=== PATIENT | female | born 1975 | race Caucasian/White ===

== ENCOUNTER 2023-04-14 07:49 | Outpatient (OUT) | payer BC, SELFPAY ==
--- NOTE | 2023-04-14 | RT_ITS ---
[facility] Test Date: 2023-04-14 Pat Name: ELVIA GUTIÉRREZ Department: Room: - Gender: Female [employer] Professional: Hien Suazo RRT : 1975 Requested By: CECILIA RAMOS Order Number: [id number] Reading MD: Rudolph Storey Interpretive Statements Please see PFT performed earlier this morning for full interpretation. Electronically Signed On 04-14-2023 17:40:31 EDT by Rudolph Storey
--- NOTE | 2023-04-14 08:00 | RT_ITS ---
[facility] Test Date: 2023-04-14 Pat Name: ELVIA GUTIÉRREZ Department: Room: - Gender: Female [employer] Technician: Hien Suazo RRT : 1975 Requested By: CECILIA RAMOS Order Number: [id number] Ajay MD: Rudolph Storey Interpretive Statements Pulmonary function testing was completed according to ATS criteria. Findings were considered accurate and reproducible. No bronchodilator was administered due to normal spirometric values. No prior studies available for comparison. Spirometry: -FEV1/FVC: Normal @ 84% -FEV1: Normal @ 117% -FVC: Normal @ 112% Lung volumes by plethysmography: -RV: Normal @ 98% -TLC: Increased @ 116% Diffusion capacity: -DLCO: Extremely severe reduction @ 17% when corrected for Hb 13.1g/dL I had the RT retest this patient's DLCO as a value of 17% is EXTREMELY low. It was retested the same day in the afternoon (see that separate report for full numbers) -DLCO (repeat): Mild reduction @ 72% when corrected for Hb 13.1g/dL Flow-volume loop: -Normal shape Impressions: -Normal spirometry and lung volumes, with an isolated mild diffusion defect. The 17% DLCO value appears spurious, which I recommend to disregard. Given the patient's clinical history, the mildly reduced DLCO may be secondary to pulmonary hypertension and/or a [id number] shunt associated with PFO or other septal defect. Clinical correlation required. Electronically Signed On 04-14-2023 17:48:00 EDT by Rudolph Storey
[2023-04-14 08:03] LABS: Hemoglobin 13.1 g/dL (12.0-16.0)
== END 2023-04-14 07:50 ==
LOC: LAB 07:49
PROVIDERS: PCP Family Medicine; Visit Provider Internal Medicine Interventional Cardiology
DX: R06.02 Shortness of breath (principal)
CPT/HCPCS: 36415; 85018; 94010; 94726; 94729

== ENCOUNTER 2023-05-11 11:43 | Outpatient (OUT) | payer BC, SELFPAY ==
[2023-05-11 12:46] LABS: Anion Gap 11.9; BUN Creatinine Ratio 9.5; Calcium 8.8 mg/dL (8.5-10.1); Chloride 101 mmol/L (98-107); Estimated GFR (African America >60 (>=60); Estimated GFR (Non-African Ame 57 (>=60); Glucose 88 mg/dL (74-106); Potassium 3.9 mmol/L (3.5-5.1); Sodium 137 mmol/L (136-145)
== END 2023-05-11 11:44 | disposition home or self-care (01) ==
LOC: LAB 11:44
PROVIDERS: PCP Family Medicine; Visit Provider Internal Medicine Interventional Cardiology
DX: R06.02 Shortness of breath (principal)
CPT/HCPCS: 36415; 80048

== ENCOUNTER 2023-06-01 11:27 | Outpatient (OUT) | payer BC, SELFPAY ==
[2023-06-01 11:57] LABS: Anion Gap 10.5; Calcium 8.7 mg/dL (8.5-10.1); Carbon Dioxide 29.2 mmol/L (21.0-32.0); Chloride 101 mmol/L (98-107); Estimated GFR (African America >60 (>=60); Estimated GFR (Non-African Ame 60 (>=60); Glucose 106 mg/dL (74-106); Potassium 3.7 mmol/L (3.5-5.1); Sodium 137 mmol/L (136-145)
== END 2023-06-01 11:28 | disposition home or self-care (01) ==
LOC: LAB 11:30
PROVIDERS: PCP Family Medicine; Visit Provider Internal Medicine Interventional Cardiology
DX: I11.9 Hypertensive heart disease without heart failure (principal)
CPT/HCPCS: 36415; 80048

== ENCOUNTER 2023-07-13 10:15 | Outpatient (OUT) | payer BC, SELFPAY ==
--- NOTE | 2023-07-13 10:19 | MM_ITS ---
Patient: ELVIA GUTIÉRREZ Exam Date: 07/13/2023 : 1975 Gender:F Ordering : DR Pat Dominique M.D. Admission #: [id number] Family : Order #: [id number] CLICK HERE TO VIEW EXAM RADIOLOGY REPORT PROCEDURE: MM TOMOSYNTHESIS SCREENING BI COMPARISON: MG MAMM SCREEN 3D AMANUEL CAD, 07/10/2022. MG MAMM SCREEN 3D AMANUEL CAD, 05/30/2021. MG MAMM SCREEN AMANUEL W CAD, 08/16/2019. MG MAMM AMANUEL SCRN W CAD DIG, 10/03/2015. INDICATIONS: Z12.31 Calculator Name NCI Breast Cancer Risk Assessment Tool 5 Year Breast Cancer Risk Not Reported. Lifetime Breast Cancer Risk Not Reported. Personal Breast Cancer No Personal Ovarian Cancer No Treatments None Family Cancers None LOCATION: [facility] BREAST COMPOSITION: Heterogeneously dense,which may obscure small masses. FINDINGS: DIAGNOSTIC CATEGORY 0--INCOMPLETE: NEED ADDITIONAL IMAGING EVALUATION. RIGHT BREAST: 10 x 6 mm circumscribed nodule within the lower inner quadrant, mid breast. Spot magnification views and ultrasound evaluation recommended. LEFT BREAST: No significant suspicious finding. No significant change has occurred. RECOMMENDATIONS: ADDITIONAL MAMMOGRAPHIC VIEWS REQUIRED: RIGHT BREAST - RIGHT CRANIOCAUDAL SPOT MAGNIFICATION VIEW - RIGHT OBLIQUE SPOT MAGNIFICATION VIEW - ULTRASOUND: RIGHT BREAST PLEASE NOTE: A NORMAL MAMMOGRAM DOES NOT EXCLUDE THE POSSIBILITY OF BREAST CANCER. A CLINICALLY SUSPICIOUS PALPABLE LUMP SHOULD BE BIOPSIED. Dictated by: Edilson Ferguson M.D. on 07/13/2023 at 13:19 Approved by: Edilson Ferguson M.D. on 07/13/2023 at 13:27
== END 2023-07-13 10:16 | disposition home or self-care (01) ==
LOC: MAMMO 10:16
PROVIDERS: PCP Family Medicine; Visit Provider Family Medicine
DX: Z12.31 Encounter for screening mammogram for malignant neoplasm of breast (principal); N63.14 Unspecified lump in the right breast, lower inner quadrant
CPT/HCPCS: 77063; 77067

== ENCOUNTER 2023-07-27 12:58 | Outpatient (OUT) | payer BC, SELFPAY ==
--- NOTE | 2023-07-27 | MM_ITS ---
Patient: ELVIA GUTIÉRREZ Exam Date: 07/27/2023 : 1975 Gender:F Ordering : DR Pat Dominique M.D. Admission #: [id number] Family : Order #: [id number] CLICK HERE TO VIEW EXAM RADIOLOGY REPORT PROCEDURE: MM DIAGNOSTIC MAMMO UNILAT RT, 07/27/2023, 13:03 US BREAST RT LIMITED, 07/27/2023, 13:18 COMPARISON: MG MAMM SCREEN 3D AMANUEL CAD, 07/10/2022. MM TOMOSYNTHESIS SCREENING BI, 07/13/2023. INDICATIONS: Abnormal mammogram R92.8 Calculator Name NCI Breast Cancer Risk Assessment Tool 5 Year Breast Cancer Risk Not Reported. Lifetime Breast Cancer Risk Not Reported. Personal Breast Cancer No Personal Ovarian Cancer No Treatments None Family Cancers None LOCATION: [facility] BREAST COMPOSITION: Heterogeneously dense,which may obscure small masses. FINDINGS: DIAGNOSTIC CATEGORY 0--INCOMPLETE: NEED ADDITIONAL IMAGING EVALUATION. Spot compression views demonstrate a persistent partially circumscribed oval nodule lower inner quadrant mid breast measuring 9.4 x 4.8 x 5.9 mm. Ultrasound demonstrates 2 focal lesions in the right breast. At the 6 o'clock position oval lobular hypoechogenic lesion measuring 5.8 x 4.0 x 3.6 mm. At the 4 o'clock position oval smooth hypoechogenic lesion measuring 7.4 x 3.4 x 3.7 mm. These lesions do not correspond in size to the mammographic abnormality. Given the multiplicity of 3 separate lesions on 2 different modalities, MRI follow-up is recommended for further characterization. RECOMMENDATIONS: BREAST MRI: BILATERAL BREASTS PLEASE NOTE: A NORMAL MAMMOGRAM DOES NOT EXCLUDE THE POSSIBILITY OF BREAST CANCER. A CLINICALLY SUSPICIOUS PALPABLE LUMP SHOULD BE BIOPSIED. Dictated by: Chester Deutsch MD on 07/27/2023 at 13:36 Approved by: Chester Deutsch MD on 07/27/2023 at 13:40
== END 2023-07-27 12:59 | disposition home or self-care (01) ==
LOC: MAMMO 12:58
PROVIDERS: PCP Family Medicine; Visit Provider Family Medicine
DX: R92.8 Other abnormal and inconclusive findings on diagnostic imaging of breast (principal)
CPT/HCPCS: 76642; 77065

== ENCOUNTER 2023-08-23 07:15 | Outpatient (OUT) | payer BC, SELFPAY ==
--- NOTE | 2023-08-23 07:22 | MR_ITS ---
The [address] [address] Patient Name: ELVIA GUTIÉRREZ MRN: [facility]:[id number] date: 1975 Sex: F Assigned Patient Location: MRI Current Patient Location: MRI Accession/Order Number: [id number] Exam Date: 08/23/2023 07:25 Report Date: 08/23/2023 09:24 At the request of: NON-STAFF PHYSICIAN Procedure: MR head/brain wo/w con EXAMINATION: MR head/brain wo/w con HISTORY: [id number], increased tremors, headache, dizziness COMPARISON: MRI brain 02/16/2023, 06/10/2021 TECHNIQUE: A variety of imaging planes and parameters were utilized for visualization of suspected pathology. Images were performed without and with Dotarem contrast. FINDINGS: CEREBRUM: A few small foci of T2 hyperintensity within the periventricular deep white matter. Stable T2 hyperintensities within the kathryn and brainstem. No edema, hemorrhage, mass, acute infarction, or inappropriate atrophy. CEREBELLUM: Stable right cerebellar tonsil extending 2 mm below the foramen magnum. No edema, hemorrhage, mass, acute infarction, or inappropriate atrophy. BRAINSTEM: No edema, hemorrhage, mass, acute infarction, or inappropriate atrophy. CSF SPACES: Ventricles, cisterns, and sulci are appropriate for age. No hydrocephalus, subarachnoid hemorrhage, or mass. SKULL: No mass or other significant visible lesion. SINUSES: Limited views demonstrate no significant mucosal thickening or fluid. ORBITS: Limited views are unremarkable. OTHER: No abnormal meningeal or parenchymal enhancement. MR/MR head/brain wo/w con IMPRESSION: 1. Stable mild cerebellar tonsillar ectopia. 2. Stable appearance of a few small periventricular T2 hyperintensities within the deep white matter and more notable within the kathryn and brainstem; nonspecific but suspicious for demyelinating process. No new findings or enhancement to suggest active demyelination. Electronically authenticated by: MARA JOHN Date: 08/23/2023 09:24
== END 2023-08-23 07:16 | disposition home or self-care (01) ==
LOC: MRI 07:17
PROVIDERS: PCP Family Medicine
DX: R93.89 Abnormal findings on diagnostic imaging of other specified body structures (principal)
CPT/HCPCS: 70553; A9575

== ENCOUNTER 2024-01-03 07:03 | Outpatient (OUT) | payer BC, SELFPAY ==
--- OUTSIDE RECORDS SUMMARY | 2024-01-03 07:05 | XMS_ITS | CCD ---
Author Name Unknown Address [address] [place] [address] Organization [facility] Care Team Providers Care [employer] Instructor Name Role Phone ALESSANDRO GARRIDO Admitting Unavailable ALESSANDRO GARRIDO Attending Unavailable PAT HUSTON Referring Unavailable ROBEL, APT Primary Care Unavailable Pat Huston Unavailable ROBEL, DR PAT Kumari Admitting Unavailable HUSTON, DR PAT Kumari Attending Unavailable HUSTON, DR PAT Kumari Primary Care Unavailable TESUQUE, DR NILESH Foy Consulting Unavailable HUSTON, DR PAT Kumari Consulting Unavailable HUSTON, DR PAT Kumari Admitting Unavailable HUSTON, DR PAT Kumari Attending Unavailable HUSTON, DR PAT Kumari Primary Care Unavailable HUSTON, DR PAT Kumari Consulting Unavailable MISC, DR CRABTREE Admitting Unavailable MISC, DR CRABTREE Attending Unavailable HUSTON, DR PAT Kumari Primary Care Unavailable MISC, DR CRABTREE Consulting Unavailable ADDIE, DR PARIKH Admitting Unavailable ADDIE, DR PARIKH Attending Unavailable HUSTON, DR PAT Kumari Primary Care Unavailable ADDIE, DR PARIKH Consulting Unavailable ZIEBER, DR EDILSON Basilio Consulting Unavailable ELTAHAWY, DR BROOKS Admitting Unavailable ELTAHAWY, DR BROOKS Attending Unavailable HUSTON, DR PAT Kumari Primary Care Unavailable ELTAHAWY, DR BROOKS Consulting Unavailable ELTAHAWY, DR BROOKS Admitting Unavailable ELTAHAWY, DR BROOKS Attending Unavailable HUSTON, DR PAT Kumari Primary Care Unavailable HUSTON, DR PAT Kumari Admitting Unavailable HUSTON, DR PAT Kumari Attending Unavailable HUSTON, DR PAT Kumari Primary Care Unavailable HUSTON, DR PAT Kumari Consulting Unavailable ELTAHAWY, DR BROOKS Admitting Unavailable ELTAHAWY, DR BROOKS Attending Unavailable HUSTON, DR PAT Kumari Primary Care Unavailable ELTAHAWY, DR BROOKS Consulting Unavailable ZIEBER, DR EDILSON Basilio Consulting Unavailable ELTAHAWY, EHAB Admitting Unavailable ELTAHAWY, EHAB Attending Unavailable ELTAHAWY, EHAB Attending Unavailable ELTAHAWY, EHAB Attending Unavailable ELTAHAWY, EHAB Attending Unavailable ELTAHAWY, EHAB Attending Unavailable ELTAHAWY, EHAB Attending Unavailable ELTAHAWY, EHAB Referring Unavailable ELTAHAWY, EHAB Referring Unavailable MD Pat Huston Primary Care Provider MD Pat Huston Attending Provider [phone] Pat Huston Admitting Unavailable Pat Huston Primary Care Unavailable Pat Huston Attending Unavailable Kevon Samuel Admitting Unavailab le Kevon Samuel Attending Unavailab le Pat Huston Primary Care Unavailable Allergies Allergy Classification Reported Allergen(s) Allergy Type Date of Onset Reaction(s) Facility (2 sources) Acetaminophen / oxyCODONE Drug Allergy 07-30-20 14 [facility] Repository (8 sources) levoFLOXacin Drug Allergy 10-11-20 16 hives [facility] Repository (2 sources) Meperidine Drug Allergy 07-30-20 14 [facility] Repository (2 sources) Darvocet-N 100 Drug allergy (disorder) 07-30-20 14 [facility] Repository (6 sources) Acetaminophen / oxyCODONE Drug Allergy Unknown [facility] Other (6 sources) Acetaminophen / Propoxyphene Drug Allergy Unknown [facility] Other (8 sources) Meperidine; Translations: [MEPERIDINE] Drug Allergy 12-15-19 14 Unknown, Vomiting [facility] Repository (6 sources) Simvastatin Drug Allergy Unknown [facility] Other (1 source) Tylenol-Codeine #3 Drug allergy (disorder) [facility] Repository (5 sources) Allergies Reconciled Propensity to adverse reactions Unknown [facility] Other (5 sources) patient allergy list reviewed by nurse or physicia Propensity to adverse reactions 06-21-20 19 Comment:Done [facility] Other (5 sources) Darvocet A500 *ANALGESICS - OPIOID* Propensity to adverse reactions 10-27-19 17 Unknown [facility] Other (1 source) Acetaminophen / oxyCODONE; Translations: [OXYCODONE-ACETAM INOPHEN] Drug Allergy 12-15-19 14 [facility] Repository (3 sources) levoFLOXacin; Translations: [LEVOFLOXACIN] Drug Allergy 08-21-20 Hives [facility] Repository (1 source) PROPOXYPHENE N-ACETAMINOPHEN; Translations: [PROPOXYPHENE N-ACETAMINOPHEN] Propensity to adverse reactions to drug (disorder) 12-15-19 [facility] Repository (2 sources) Acetaminophen; Translations: [acetaminophen] Drug Allergy 09-07-20 Vomiting [facility] (2 sources) oxyCODONE; Translations: [oxycodone] Drug Allergy 09-07-20 Vomiting [facility] (2 sources) Propoxyphene; Translations: [propoxyphene] Drug Allergy 09-07-20 [facility] (1 source) Meperidine Drug Allergy 09-07-20 [facility] Repository Medications Current Medications Medication Drug Class(es) Dates Sig (Normalized) Sig (Original) buPROPion hydrochloride 100 mg oral tablet (17 sources) Aminoketone Start: 06-25-2022 buPROPion HCl 100MG BuPROPion HCl( 100MG Oral 2 times daily ) Active -Hx Entry Oral 2 times daily for 0 *Pick strength-form from [employer] for eRX* Jun, Active take 1 tablet by thomas th once daily in the morning buPROPion HCl ER (XL) 300 MG Take 1 tabl et by mouth every morning for 90 Active citalopram 20 mg oral tablet (5 sources) Serotonin Reuptake Inhibitor Start: 06-25-2022 Citalopram Hydrobromide 20MG Citalopram Hydrobromide( 20MG Oral 2 times daily ) Active -Hx Entry Oral 2 times daily for 0 *Pick strength-form from [employer] for eRX* Jun, Active dilTIAZem malate 240 mg oral tablet (11 sources) Calcium Channel Rob Start: 06-26-2022 take 240 mg by mouth once daily Cardizem CD 240MG Cardizem CD( 240MG Oral daily ) Active -Hx Entry Oral daily for 0 *Pick strength-form from [employer] for eRX* Jun, Active take 2 tablets by mo [facility] every twenty-four hours Cardizem 120 MG 2 tablets Orally daily total of 240 mg Active DULoxetine 30 mg delayed release oral capsule (12 sources) Serotonin and Norepinephrine Reuptake Inhibitor take 1 capsule by mouth once daily DULoxetine HCl 30 MG Take 1 capsule by mouth every day for 90 Active 24 hr isosorbide mononitrate 120 mg extended release oral tablet (11 sources) Nitrate Vasodilator Start: 06-26-20 Imdur 120MG Imdur( 120MG Oral ) Active -Hx Entry Oral for 0 *Reorder from [employer] for eRx and Interaction Alerts* Jun, Active take 1 tablet by thomas once daily in the morning Imdur 60 MG 1 tablet in the morning Orally Once a day 120 mg Active Problems Active Problems Problem Classification Problem Date Documented Date Episodic/Chronic Anxiety disorders (6 sources) Generalized anxiety disorder; Translations: [Generalized anxiety disorder] Chronic Conduction disorders (5 sources) Pre-excitation syndrome; 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] Onset: 06-20-2018 Chronic Coronary atherosclerosis and other heart disease (4 sources) Atherosclerotic heart disease of [place] coronary artery with other forms of angina pectoris; Translations: [Angina pectoris with documented spasm] Onset: 07-22-2022 Chronic Disorders of lipid metabolism (9 sources) Hyperlipidemia, unspecified; Translations: [Hyperlipidemia] Onset: 06-20-2018 Chronic Essential hypertension (2 sources) Essential (primary) hypertension; Translations: [Essential (primary) hypertension] Onset: 03-16-2023 Chronic Fever of unknown origin (5 sources) Fever, unspecified; Translations: [Fever] Episodic Menstrual disorders (10 sources) Excessive and frequent menstruation with regular cycle; Translations: [Intermenstrual bleeding - irregular] Resolved: 02-25-2017 Chronic Mood disorders (6 sources) Moderate recurrent major depression; Translations: [Major depressive disorder, recurrent, moderate] Chronic Nonspecific chest pain (18 sources) Non-cardiac chest pain; Translations: [Other chest pain] Onset: 11-04-2022 Episodic Open wounds of head; neck; and trunk (5 sources) Laceration of genitalia; Translations: [Laceration without foreign body of vagina and vulva, initial encounter] Episodic Other aftercare (1 source) Encounter for follow-up examination after completed treatment for conditions other than malignant neoplasm; Translations: [Encntr for f/u exam aft trtmt for cond oth than malig neoplm] Episodic Other aftercare (4 sources) History and physical examination, follow-up; Translations: [Encounter for follow-up examination after completed treatment for conditions other than malignant neoplasm] Episodic Other connective tissue disease (1 source) Pain in right hand; Translations: [Pain in right hand] Episodic Other connective tissue disease (4 sources) Pain in right hand; Translations: [Pain in right hand] Episodic Other eye disorders (5 sources) Dilated pupil; 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 Other non-traumatic joint disorders (1 source) Pain in left hip; Translations: [Pain in left hip] Episodic Other non-traumatic joint disorders (4 sources) Arthralgia of the pelvic region and thigh; Translations: [Pain in left hip] Episodic Other nutritional; endocrine; and metabolic disorders (1 source) Body mass index (BMI) 36.0-36.9, adult; Translations: [Body mass index (BMI) 36.0-36.9, adult] Chronic Other nutritional; endocrine; and metabolic disorders (5 sources) Obese class I; Translations: [Body mass index 32.0-32.9, adult] Onset: 06-20-2018 Chronic Other nutritional; endocrine; and metabolic disorders (4 sources) Obese class II; Translations: [Body mass index (BMI) 36.0-36.9, adult] Chronic Other screening for suspected conditions (not mental disorders or infectious disease) (4 sources) Abnormal findings on diagnostic imaging of other specified body structures; Translations: [ABNORML FIND DX IMG OT BODY STRUC] Onset: 02-16-2023 Chronic Other screening for suspected conditions (not mental disorders or infectious disease) (20 sources) Encounter for screening mammogram for malignant neoplasm of breast; Translations: [Urine test negative] Onset: 07-10-2022 Episodic Other skin disorders (5 sources) Acne vulgaris; Translations: [Acne vulgaris] Episodic Residual codes; unclassified (1 source) Other specified postprocedural states; Translations: [Other specified postprocedural states] Episodic Residual codes; unclassified (4 sources) Postprocedural state finding; Translations: [Other specified postprocedural states] Episodic Unclassified (1 source) Nonspecific elevation of levels of transaminase or lactic acid dehydrogenase (LDH); Translations: [Nonspecific elevation of levels of transaminase or lactic acid dehydrogenase (LDH)] Onset: 06-21-2019 Past or Other Problems Problem Classification Problem Date Documented Da te Episodic/Chronic Abdominal pain (5 sources) Pelvic and perineal pain; Translations: [Pelvic and perineal pain] Resolved: 02-25-2017 Episodic Allergic reactions (5 sources) Unspecified contact dermatitis due to other agents; Translations: [Contact dermatitis] Onset: 06-21-2019 Episodic Malaise and fatigue (1 source) Other fatigue; Translations: [OTHER FATIGUE] Onset: 11-20-2022 Episodic Mycoses (5 sources) Candidiasis, unspecified; Translations: [Candidiasis] Onset: 06-02-2008 Episodic Other circulatory disease (4 sources) Other specified symptoms and signs involving the circulatory and respiratory systems; Translations: [OTH SPEC SX SIGNS INVLV CIRC RS] Onset: 06-09-2022 Episodic Other complications of (1 source) Supervision of high risk , unspecified, unspecified trimester; Translations: [Supervision of high risk , unspecified, unspecified trimester] Onset: 11-14-2008 Episodic Other complications of (4 sources) High risk ; Translations: [Supervision of high risk , unspecified, unspecified trimester] Onset: 11-14-2008 Episodic Other liver diseases (4 sources) Elevated levels of transaminase & lactic acid dehydrogenase; Translations: [Nonspecific elevation of levels of transaminase or lactic acid dehydrogenase (LDH)] Onset: 06-21-2019 Episodic Other non-traumatic joint disorders (5 sources) Shoulder joint pain; Translations: [Pain in right shoulder] Onset: 08-11-2018 Episodic Other and delivery including normal (1 source) Encounter for routine follow-up; Translations: [Encounter for routine follow-up] Onset: 08-12-2009 Episodic Phlebitis; thrombophlebitis and thromboembolism (5 sources) Embolism from thrombosis of vein of distal lower extremity; Translations: [Acute venous embolism and thrombosis of unspecified deep vessels of lower extremity] Onset: 06-20-2018 Episodic Spondylosis; intervertebral disc disorders; other back problems (5 sources) Cervical disc disorder with radiculopathy; Translations: [Cervical disc disorder with radiculopathy, cervicothoracic region] Onset: 06-20-2018 Episodic Thyroid disorders (5 sources) Disorder of thyroid, unspecified; Translations: [Disorder of thyroid gland] Onset: 06-21-2019 Episodic Unclassified (5 sources) Surveillance of intrauterine device contraception done; Translations: [Surveillance of previously prescribed intrauterine contraceptive device] Onset: 12-23-2009 Unclassified (5 sources) Encounter for insertion or removal of intrauterine contraceptive device; Translations: [Encounter for insertion or removal of intrauterine contraceptive device] Onset: 09-05-2009 Results Test Name Value Interpretation Reference Range Facility MR breast BI wo/w con CADon 09-07-2023 MR breast BI wo/w con CAD [facility] [place] [address] [place] [address] MRI Report Signed Patient: Elvia Gutiérrez MR#: [id number] : 1975 Acct:[id number] Age/Sex: 48 / F ADM Date: 09/07/23 Loc: Room: Type: [facility] Attending Dr: Pat Huston MD Copies to: Pat Huston MD Ordering Provider: Pat Huston MD Date of Service: 09/07/23 MR/MR breast BI wo/w con CAD: Abnormal mammogram of right breast BILATERAL BREAST MRI WITHOUT AND WITH INTRAVENOUS CONTRAST CLINICAL HISTORY: Masses right breast seen on mammography and ultrasound. COMPARISON: Outside diagnostic right breast mammogram and ultrasound 07/27/2023. TECHNIQUE: Multisequence, multiplanar imaging of the breasts were obtained before and after the use of IV contrast. All imaged data was reviewed using the [employer] system. The postcontrast images were subtracted and CAD mapping of the enhancement kinetics was performed. Kinetic curves were generated. 2D and 3D MIP images were also reviewed. FINDINGS: The breasts are composed of scattered fibroglandular densities with mild background parenchymal enhancement. Multiple subcentimeter enhancing foci seen within both breasts. No suspicious masslike or nonmass- like enhancement within either breast. Specifically, no suspicious abnormality is seen within the lower inner quadrant of the right breast. No chest wall abnormality is seen. No suspicious intramammary or axillary lymph nodes. MR/MR breast BI wo/w con CAD IMPRESSION: NO MRI EVIDENCE OF MALIGNANCY. DIAGNOSTIC RIGHT BREAST MAMMOGRAM AND ULTRASOUND IN 6 MONTHS IS RECOMMENDED FOR FURTHER EVALUATION OF THE SUSPICIOUS FINDINGS SEEN ON THE PRIOR STUDIES. RESULT CODE: 1 Negative FOLLOW UP: 6M Impression dictated by: Bunny Waite Jr., D.OLinda09/07/2023 11:47 AM Dictation Location: [place] [address] Transcribed By: [facility] 09/07/23 1147 Dictated By: Bunny Waite Jr, DO 09/07/23 1138 Signed By: 09/07/23 1147 [facility] Orders Onlyon 07-14-2023 Orders Only [id number] Elvia Gutiérrez 1975 F Date Provider Department Center 07/14/2023 RENE ROMAN Family History Problem Relation Age of Onset Supraventricular tachycardia Mother Heart disease Father Supraventricular tachycardia Sister Heart disease Paternal Grandmother Heart disease Paternal Grandfather Family Status - Relation Status Age at Mother Father Sister Paternal Grandmother Paternal Grandfather [facility] Office Visiton 06-14-2023 Follow-up visit [id number] Elvia Gutiérrez 1975 F Date Provider Department Center 06/14/2023 VIDHI ECHEVARRIA Family History Problem Relation Age of Onset Supraventricular tachycardia Mother Heart disease Father Supraventricular tachycardia Sister Heart disease Paternal Grandmother Heart disease Paternal Grandfather Family Status - Relation Status Age at Mother Father Sister Paternal Grandmother Paternal Grandfather Level of Service:[id number] [place] OFFICE/OUTPATIENT ESTABLISHED LOW MDM 20-29 MIN [facility] Office Visiton 03-16-2023 Follow-up visit [id number] Elvia Gutiérrez 1975 F Date Provider Department Center 03/16/2023 VIDHI ECHEVARRIA Family History Problem Relation Age of Onset Supraventricular tachycardia Mother Heart disease Father Supraventricular tachycardia Sister Heart disease Paternal Grandmother Heart disease Paternal Grandfather Family Status - Relation Status Age at Mother Father Sister Paternal Grandmother Paternal Grandfather Level of Service:73284 [place] OFFICE/OUTPATIENT ESTABLISHED MOD MDM 30-39 MIN [facility] Orders Onlyon 03-16-2023 Orders Only [id number] Elvia Gutiérrez 1975 F Date Provider Department Center 03/16/2023 RENE ROMAN [facility] Family History Problem Relation Age of Onset Supraventricular tachycardia Mother Heart disease Father Supraventricular tachycardia Sister Heart disease Paternal Grandmother Heart disease Paternal Grandfather Family Status - Relation Status Age at Mother Father Sister Paternal Grandmother Paternal Grandfather Normal [facility] MRI BRAIN WO W CONon 02-16-2 023 MRI BRAIN WO W CON EXAMINATION: MRI BRAIN WO W CON, MRA HEAD WO CON HISTORY: Imaging result abnormal COMPARISON: MRI brain 06/09/2022, 06/10/2021 TECHNIQUE: A variety of imaging planes and parameters were utilized for visualization of suspected pathology. Images were performed without and with ml Dot[employer] contrast. FINDINGS: CEREBRUM: Stable small T2 hyperintensity within the deep white matter cephalad to the left lateral ventricle, nonspecific. No edema, hemorrhage, mass, acute infarction, or inappropriate atrophy. CEREBELLUM: The right cerebellar tonsil now extends 2 mm below the foramen magnum. BRAINSTEM: Stable, chronic mild increased T2 signal within the brainstem. CSF SPACES: Ventricles, cisterns, and sulci are appropriate for age. No hydrocephalus, subarachnoid hemorrhage, or mass. SKULL: No mass or other significant visible lesion. SINUSES: Limited views demonstrate no significant mucosal thickening or fluid. ORBITS: Limited views are unremarkable. OTHER: No abnormal meningeal or parenchymal enhancement. IMPRESSION: 1. Mild cerebellar tonsillar ectopia; this can be incidental or due to chronic headaches due to restricted CSF flow. Finding is new since prior study. 2. Stable mild T2 hyperintensities within brainstem and cephalad to the left lateral ventricle; typically associated with chronic small vessel ischemic changes, demyelinating process, or sequela of chronic migraine headaches. 3. Normal MRA of the brain. Electronically authenticated by: EDILSON FERGUSON Date: 2023-02-16 10:16 Normal [facility] LIPID PROFILEon 02-11-2023 CHOL-HDL RATIO NORM SEE BELOW Normal [facility] Comment on above: Result Comment: 3.3 - 4.4 LOW RISK 4.4 - 7.1 AVERAGE RISK 7.1 - 11.0 MODERATE RISK >11.0 HIGH RISK Performed By: #### C MP, TSH, LIPID #### [facility] [address] [place] [address] [address] David Zapata Cholesterol [Mass/Vol] 120 mg/dL Normal <=200 [facility] Comment on above: Performed By: #### C MP, TSH, LIPID #### [facility] [address] [place] [address] [address] David Zapata Cholesterol in HDL [Mass/Vol] 54 mg/dL Normal 40-60 [facility] Comment on above: Performed By: #### C MP, TSH, LIPID #### [facility] [address] [place] [address] [address] David Zapata Cholesterol in LDL [Mass/Vol] 45.6 mg/dL Normal [facility] Comment on above: Performed By: #### C MP, TSH, LIPID #### [facility] [address] [place] [address] [address] David Zapata Cholesterol.total/Ch olesterol in HDL [Mass ratio] 2.2 {ratio} Normal [facility] Comment on above: Performed By: #### C MP, TSH, LIPID #### [facility] [address] [place] [address] [address] David Zapata HDL NORMAL > or = 60 mg/dl - LO W CARDIOVASCULAR RISK <40 mg/dl - HIGH CARDIOVASCULAR RISK Normal [facility] Comment on above: Performed By: #### C MP, TSH, LIPID #### [facility] [address] [place] [address] [address] David Zapata LDL CALC NORMAL SEE BELOW Normal [facility] Comment on above: Result Comment: <100 mg/dl OPTIMAL 100 - 129 mg/dl NEAR OR ABOVE OPTIMAL 130 - 159 mg/dl BORDERLINE HIGH 160 - 189 mg/dl HIGH >190 mg/dl VERY HIGH Performed By: #### C MP, TSH, LIPID #### [facility] [address] [place] [address] [address] David Zapata Triglyceride [Mass/Vol] 102 mg/dL Normal <=150 [facility] Comment on above: Performed By: #### C MP, TSH, LIPID #### [facility] [address] [place] [address] [address] David Zapata VLDL CALC 20.4 mg/dL Normal [facility] Comment on above: Performed By: #### C MP, TSH, LIPID #### [facility] [address] [place] [address] Dr. David Zapata LIVER PROFILEon 02-11-2023 Albumin [Mass/Vol] 3.4 g/dL Normal 3.4-5.0 [facility] [place] Comment on above: Performed By: #### C MP, TSH, LIPID #### [facility] [address] [place] [address] Dr. David Zapata Albumin/Globulin [Mass ratio] 1.0 {ratio} Normal [facility] Comment on above: Performed By: #### C MP, TSH, LIPID #### [facility] [address] [place] [address] Dr. David Zapata ALP [Catalytic activity/Vol] 51 U/L Normal 46-116 [facility] Comment on above: Performed By: #### C MP, TSH, LIPID #### [facility] [address] [place] [address] Dr. David Zapata ALT [Catalytic activity/Vol] 32 U/L Normal 14-59 [facility] Comment on above: Performed By: #### C MP, TSH, LIPID #### [facility] [address] [place] [address] Dr. David Zapata AST [Catalytic activity/Vol] 18 U/L Normal 15-37 [facility] Comment on above: Performed By: #### C MP, TSH, LIPID #### [facility] [address] [place] [address] Dr. David Zapata BILI, CONJUGATED 0.1 mg/dL Normal 0.0-0.2 [facility] Comment on above: Performed By: #### C MP, TSH, LIPID #### [facility] [address] [place] [address] Dr. David Zapata Bilirubin [Mass/Vol] 0.4 mg/dL Normal 0.2-1.0 [facility] Comment on above: Performed By: #### C MP, TSH, LIPID #### [facility] [address] [place] [address] [address] David Zapata Globulin (S) [Mass/Vol] 3.5 g/dL Normal [facility] Comment on above: Performed By: #### C MP, TSH, LIPID #### [facility] [address] [address] [address] David Zapata Protein [Mass/Vol] 6.9 g/dL Normal 6.4-8.2 [facility] [place] Comment on above: Performed By: #### C MP, TSH, LIPID #### [facility] [address] [place] [address] [address] David Zapata Office Visiton 02-03-2023 Follow-up visit [id number] Elvia Gutiérrez 1975 Date Provider Department Center 02/03/2023 Desean-CESIAEDWARDMADDIENicolVIDHI [facility] Family History Problem Relation Age of Onset Supraventricular tachycardia Mother Heart disease Father Supraventricular tachycardia Sister Heart disease Paternal Grandmother Heart disease Paternal Grandfather Family Status - Relation Status Age at Mother Father Sister Paternal Grandmother Paternal Grandfather Level of Service:[id number] [place] OFFICE/OUTPATIENT ESTABLISHED MOD MDM 30-39 MIN Reason for Visit and Comments: Post-Cath [731] Normal [facility] Letter (Out)on 01-13-2023 Letter (Out) [id number] Elvia Gutiérrez 1975 Provider Department Center 01/13/2023 None-None [facility] AD[facility] Family History Problem Relation Age of Onset Supraventricular tachycardia Mother Heart disease Father Supraventricular tachycardia Sister Heart disease Paternal Grandmother Heart disease Paternal Grandfather Family Status - Relation Status Age at Mother Father Sister Paternal Grandmother Paternal Grandfather Normal [facility] 36on 12-30-2022 36 PT INFORMED Normal [facility] ANESon 12-29-2022 ANES - Attestation signed by Vidhi Ramos MD at 12/29/2022 9:28 AM Vidhi Ramos MD, MPH, [facility], [facility], [facility] Interventional Cardiology Pager Email: [email or web address] Patient: Elvia Gutiérrez Procedure Information Date/Time: 12/29/22929 Procedures: CORONARY ANGIOGRAPHY LEFT HEART CATH Location: [facility] [employer] 2 [address] / [facility] V[facility]ULAR [facility] (Cath) Providers: Vidhi Ramos MD Clinical information reviewed: Tobacco Allergies Meds Med Hx Surg Hx OB Status Fam Hx Soc Hx Physical Exam Airway Mallampati: I Cardiovascular Rhythm: regular Rate: normal Dental Pulmonary Breath sounds clear to auscultation Abdominal Abdomen: soft Anesthesia Plan ASA 3 other (Moderate sedation) Anesthetic plan and risks discussed with patient. Use of blood products discussed with patient who consented to blood products. Plan discussed with fellow and attending. Additional Equipment Requests Normal [facility] HPon 12-29-2022 - Attestation signed by Vidhi Ramos MD at 12/29/2022 9:28 AM By using the attestations below, the signing clinician agrees that I have read and verify that the documentation has been personally reviewed by me and ensure that the documentation accurately reflects the encounter. GC: I personally saw this patient on the day of the encounter, performed the marcelino portion(s) of the service and participated in the management and confirm the resident's documentation. Please note there may be an additional personal documentation from me. Vidhi Ramos MD, MPH, [facility], [facility], [facility] Interventional Cardiology Pager Email: [email or web address] History Of Present Illness Elvia Gutiérrez is a 47 y.o. female presenting for coronary angiogram. Patient was seen in clinic with complaints of worsening chest pain. Both at rest and with exertion. They last approximately 2-20 min. 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 Was recently and has been under a lot of stress lately. She currently denies chest pain, dyspnea, palpitations. Past Medical History She has a past medical history of Paroxysmal tachycardia (CMS/HCC), Prinzmetal angina (CMS/HCC), and WPW (Xncrz-Meyyomdwj-Hxnw e syndrome). Surgical History She has a past surgical history that includes Cardiac catheterization and Hysterectomy. Social History She reports that she has never smoked. She has never used smokeless tobacco. She reports that she does not currently use alcohol. She reports that she does not use drugs. Allergies Levofloxacin, Meperidine, Oxycodone-acetaminoph en, and Propoxyphene n-acetaminophen Medications Medications Prior to Admission Medication Sig Dispense Refill Last Dose buPROPion XL (Wellbutrin XL) 300 mg 24 hr tablet Take 300 mg by mouth in the morning. 12/29/2022 dilTIAZem CD (Cardizem CD) 240 mg 24 hr capsule Take 1 capsule (240 mg) by mouth in the morning. 90 capsule 3 12/29/2022 DULoxetine (Cymbalta) [address] capsule Take 30 mg by mouth in the morning. 12/29/2022 isosorbide mononitrate ER (Imdur) 120 mg 24 hr tablet Take 1 tablet (120 mg) by mouth in the morning for 10 days. Do not crush or chew. 10 tablet 0 12/29/2022 nitroglycerin (Nitrostat) 0.[address] 1 tablet (0.4 mg) under the tongue every 5 (five) minutes if needed for chest pain. May repeat dose every 5 minutes for up to 3 doses total. 50 tablet 0 Past Week Review of Systems All other systems reviewed and are negative. A full 12 point ROS was conducted. All pertinent findings noted in the HPI. Otherwise negative. Physical Exam Vitals reviewed. Constitutional: Appearance: She is obese. HENT: Head: Normocephalic. Mouth/Throat: Mouth: Mucous membranes are moist. Pharynx: Oropharynx is clear. Eyes: Extraocular Movements: Extraocular movements intact. Conjunctiva/sclera: Conjunctivae normal. Cardiovascular: Rate and Rhythm: Normal rate and regular rhythm. Pulses: Normal pulses. Pulmonary: Effort: Pulmonary effort is normal. Abdominal: General: Abdomen is flat. Skin: General: Skin is warm. Capillary Refill: Capillary refill takes less than 2 seconds. Neurological: General: No focal deficit present. Mental Status: She is alert. Psychiatric: Mood and Affect: Mood normal. Thought Content: Thought content normal. Last Recorded Vitals Blood pressure 135/84, pulse 78, resp. rate 16, SpO2 99 %. Relevant Results Reviewed Assessment/Plan Principal Problem: Chest pain Assessment: Worsening angina Palpitations History of suspected coronary spasm Plan: Proceed with coronary angiogram Erika Mabry DO, MPH Cardiovascular Medicine Fellow [facility] 36on 12-23-2022 36 Spoke with patient and she is c/o increased dizziness and worsening tremors since increasing diltiazem. She is tentatively scheduled with you for cath on 12/29/2022. Anything you'd like in the mean time? Thanks. Normal [facility] Letter (Out)on 12-08-2022 Letter (Out) [id number] Elvia Gutiérrez 1975 F Date Provider Department Center 12/08/2022 None-None [facility] AUTH HI Medical C Family History Problem Relation Age of Onset Supraventricular tachycardia Mother Heart disease Father Supraventricular tachycardia Sister Heart disease Paternal Grandmother Heart disease Paternal Grandfather Family Status - Relation Status Age at Mother Father Sister Paternal Grandmother Paternal Grandfather [facility] [place] HEART CORONARY ANGIOGRAMo n 12-03-2022 CT HEART CORONARY ANGIOGRAM CT HEART CORONARY ANGIOGRAM 12/03/2022 2:53 PM CLINICAL INDICATIONS: Dull chest pain for 3 months. Dizziness on and off TECHNOLOGIST COMMENTS: Chest pain QUESTION FOR RADIOLOGIST: Evaluate possibility of coronary artery stenosis. PROTOCOL: Gated cardiac CT examination CONTRAST: 100 mL Omnipaque 350 TECHNIQUE: Multidetector CT angiogram was obtained using prospective ECG gating. Imaging was performed from the level of the clavicles to the level of the hemidiaphragms. In order to provide better evaluation of the anatomy and disease process, advanced off-line 3-D post-processing techniques, including curvilinear analysis of the coronary arteries were performed. Medication administered in preparation for the examination is located in nursing documentation. All CT scans at this facility use dose modulation, iterative reconstruction, and/or weight based dosing when appropriate to reduce radiation dose to as low as reasonably achievable COMPARISON: The catheter procedure from 06/16/2019 CORONARY ARTERY ANGIOGRAM FINDINGS: Stenoses are reported as maximum percentage diameter stenosis. Stenosis grading is reported using the following scheme: Normal: no stenosis Mild: 1-49% stenosis Moderate: 50-70% stenosis Severe: >70% stenosis Occluded Dominance of the coronary artery system: right with normal origins and course. Left Main: The left main is a normal caliber vessel which gives rise to the LAD and circumflex arteries The left main with no significant plaque. No significant stenosis Left Anterior Descending Artery: The proximal left anterior descending artery and first diagonal branch with noncalcified atherosclerotic plaque plaque. The mid-distal LAD, D2 and D3 branches with minimal atherosclerotic plaque. There is no evidence of myocardial bridge in the LAD segment. There is mild to moderate stenosis of approximately 40-45% in the proximal LAD. Left Circumflex Artery: The left circumflex artery and its obtuse marginal branches with atherosclerotic plaque. Mild stenosis is seen in the proximal left circumflex. Right Coronary Artery: The right coronary artery and acute marginal branches with mild atherosclerotic plaque. Mild stenosis is seen in the proximal RCA Cardiac Morphology: The right atrium is normal. The right ventricle is normal. The left atrium is normal. The left ventricle is normal. The pericardium is normal and there is no pericardial effusion. Cardiac Devices and Indwelling Central Venous Lines: No central lines or cardiac devices are seen. EXTRACARDIAC FINDINGS: Other lung findings: Visualized part of the lung parenchyma appeared grossly unremarkable. Airway: The airway is normal Pleura: No pleural effusion, thickening, or pneumothorax. Thoracic aorta and great vessels: Normal in diameter. Pulmonary arteries: Normal. Heart and pericardium: Normal. Lymph nodes: No enlarged thoracic lymph nodes. Thoracic spine: Normal. Chest wall: Normal. Visualized upper abdomen: Normal. IMPRESSION: 1. Normal coronary course and origin.. Mild atherosclerotic plaque in the proximal LAD with mild to moderate stenosis between 40 and 45%. 2. Mild stenosis from minimal noncalcified plaques in the RCA and left circumflex. 3. No other abnormalities are appreciated. Electronically signed: Evelyn Siegel. Normal [facility] Letter (Out)on 11-27-2022 Letter (Out) [id number] Elvia Gutiérrez 1975 F Date Provider Department Center 11/27/2022 None-None [facility] ED [facility] ED Family History Problem Relation Age of Onset Supraventricular tachycardia Mother Heart disease Father Supraventricular tachycardia Sister Heart disease Paternal Grandmother Heart disease Paternal Grandfather Family Status - Relation Status Age at Mother Father Sister Paternal Grandmother Paternal Grandfather Normal [facility] CBC AUTO DIFFon 11-18-2022 BASO # 0.0 103/ul Normal 0.0-0.1 [facility] Comment on above: Performed By: #### C BC #### [facility] [address] [place] [address] Dr. David Zapata Basophils/100 WBC (Bld) 0.4 % Normal 0.2-2.0 [facility] Comment on above: Performed By: #### C BC #### [facility] [address] [place] [address] Dr. David Zapata EO # 0.3 103/ul Normal 0.0-0.7 [facility] Comment on above: Performed By: #### C BC #### [facility] [address] [place] [address] Dr. David Zapata Eosinophils/100 WBC (Bld) 3.4 % Normal 0.9-7.0 [facility] Comment on above: Performed By: #### C BC #### [facility] [address] [place] [address] Dr. David Zapata Erythrocyte distribution width (RBC) [Ratio] 12.0 % Normal 11.0-15.0 [facility] Comment on above: Performed By: #### C BC #### [facility] [address] [place] [address] Dr. David Zapata Hematocrit (Bld) [Volume fraction] 44.2 % Normal 36.0-48.0 [facility] Comment on above: Performed By: #### C BC #### [facility] [address] [place] [address] Dr. David Zapata Hemoglobin (Bld) [Mass/Vol] 14.0 g/dL Normal 12.0-16.0 [facility] Comment on above: Performed By: #### C BC #### [facility] [address] [place] [address] Dr. David Zapata IG # 0.04 10e3/ul Critically high 0.00-0.03 [facility] Comment on above: Performed By: #### C BC #### [facility] [address] [place] [address] Dr. David Zapata IG % 0.5 % Normal 0.0-0.5 [facility] Comment on above: Performed By: #### C BC #### [facility] [address] [place] [address] Dr. David Zapata LYMPH # 2.3 103/ul Normal 1.2-3.8 [facility] Comment on above: Performed By: #### C BC #### [facility] [address] [place] [address] Dr. David Zapata Lymphocytes/100 WBC (Bld) 28.7 % Normal 20.5-60.0 [facility] Comment on above: Performed By: #### C BC #### [facility] [address] [place] [address] Dr. David Zapata MANUAL DIFF REQ NO Normal [facility] Comment on above: Performed By: #### C BC #### [facility] [address] [place] [address] Dr. David Zapata MCH (RBC) [Entitic mass] 29.2 pg Normal 26.7-34.0 [facility] Comment on above: Performed By: #### C BC #### [facility] [address] [place] [address] Dr. David Zapata MCHC (RBC) [Mass/Vol] 31.7 g/dL Normal 29.9-35.2 [facility] Comment on above: Performed By: #### C BC #### [facility] [address] [place] [address] Dr. David Zapata MCV (RBC) [Entitic vol] 92.1 fL Normal 81.0-99.0 [facility] Comment on above: Performed By: #### C BC #### [facility] [address] [place] [address] Dr. David Zapata MONO # 0.6 103/ul Normal 0.3-0.8 [facility] Comment on above: Performed By: #### C BC #### [facility] [address] [place] [address] Dr. David Zapata Monocytes/100 WBC (Bld) 7.3 % Normal 1.7-12.0 [facility] Comment on above: Performed By: #### C BC #### [facility] [address] [place] [address] Dr. David Zapata NEUT # 4.8 103/ul Normal 1.4-6.5 [facility] Comment on above: Performed By: #### C BC #### [facility] [address] [place] [address] Dr. David Zapata Neutrophils/100 WBC (Bld) 59.7 % Normal 43.0-75.0 [facility] Comment on above: Performed By: #### C BC #### [facility] [address] [place] [address] Dr. David Zapata Platelet mean volume (Bld) [Entitic vol] 9.4 fL Critically low 9.5-13.5 [facility] Comment on above: Performed By: #### C BC #### [facility] [address] [place] [address] Dr. David Zapata PLT 308 103/ul Normal 150-450 [facility] Comment on above: Performed By: #### C BC #### [facility] [address] [address] [address] David Zapata RBC 4.80 106/ul Normal 4.20-5.40 [facility] Comment on above: Performed By: #### C BC #### [facility] [address] [address] [address] David Zapata WBC 8.0 103/ul Normal 4.0-11.0 [facility] Comment on above: Performed By: #### C BC #### [facility] [address] [address] [address] David Zapata LIPID PROFILEon 11-18-2022 CHOL-HDL RATIO NORM SEE BELOW Normal [facility] Comment on above: Result Comment: 3.3 - 4.4 LOW RISK 4.4 - 7.1 AVERAGE RISK 7.1 - 11.0 MODERATE RISK >11.0 HIGH RISK Performed By: #### C MP, TSH, LIPID #### [facility] [address] [place] [address] Dr. David Zapata Cholesterol [Mass/Vol] 203 mg/dL Critically high <=200 [facility] Comment on above: Performed By: #### C MP, TSH, LIPID #### [facility] [address] [place] [address] Dr. David Zapata Cholesterol in HDL [Mass/Vol] 57 mg/dL Normal 40-60 [facility] Comment on above: Performed By: #### C MP, TSH, LIPID #### [facility] [address] [place] [address] Dr. David Zapata Cholesterol in LDL [Mass/Vol] 120.4 mg/dL Normal [facility] Comment on above: Performed By: #### C MP, TSH, LIPID #### [facility] [address] [place] [address] Dr. David Zapata Cholesterol.total/Ch olesterol in HDL [Mass ratio] 3.6 {ratio} Normal [facility] Comment on above: Performed By: #### C MP, TSH, LIPID #### [facility] [address] [address] [address] David Zapata HDL NORMAL > or = 60 mg/dl - LO W CARDIOVASCULAR RISK <40 mg/dl - HIGH CARDIOVASCULAR RISK Normal [facility] Comment on above: Performed By: #### C MP, TSH, LIPID #### [facility] [address] [address] [address] David Zapata LDL CALC NORMAL SEE BELOW Normal [facility] Comment on above: Result Comment: <100 mg/dl OPTIMAL 100 - 129 mg/dl NEAR OR ABOVE OPTIMAL 130 - 159 mg/dl BORDERLINE HIGH 160 - 189 mg/dl HIGH >190 mg/dl VERY HIGH Performed By: #### C MP, TSH, LIPID #### [facility] [address] [place] [address] Dr. David Zapata Triglyceride [Mass/Vol] 128 mg/dL Normal <=150 [facility] Comment on above: Performed By: #### C MP, TSH, LIPID #### [facility] [address] [address] [address] David Zapata VLDL CALC 25.6 mg/dL Normal [facility] Comment on above: Performed By: #### C MP, TSH, LIPID #### [facility] [address] [place] [address] Dr. David Zapata PROF 14(COMP METB)on 023 Albumin [Mass/Vol] 3.5 g/dL Normal 3.4-5.0 [facility] Comment on above: Performed By: #### C MP, TSH, LIPID #### [facility] [address] [place] [address] Dr. David Zapata Albumin/Globulin [Mass ratio] 1.0 {ratio} Normal [facility] Comment on above: Performed By: #### C MP, TSH, LIPID #### [facility] [address] [place] [address] Dr. David Zapata ALP [Catalytic activity/Vol] 68 U/L Normal 46-116 [facility] Comment on above: Performed By: #### C MP, TSH, LIPID #### [facility] [address] [place] [address] Dr. David Zapata ALT [Catalytic activity/Vol] 28 U/L Normal 14-59 [facility] Comment on above: Performed By: #### C MP, TSH, LIPID #### [facility] [address] [place] [address] Dr. David Zapata Anion gap [Moles/Vol] 11.3 mmol/L Normal [facility] Comment on above: Performed By: #### C MP, TSH, LIPID #### [facility] [address] [place] [address] Dr. David Zapata AST [Catalytic activity/Vol] 18 U/L Normal 15-37 [facility] Comment on above: Performed By: #### C MP, TSH, LIPID #### [facility] [address] [place] [address] Dr. David Zapata Bilirubin [Mass/Vol] 0.4 mg/dL Normal 0.2-1.0 [facility] Comment on above: Performed By: #### C MP, TSH, LIPID #### [facility] [address] [place] [address] Dr. David Zapata Calcium [Mass/Vol] 8.8 mg/dL Normal 8.5-10.1 [facility] [place] Comment on above: Performed By: #### C MP, TSH, LIPID #### [facility] [address] [place] [address] Dr. David Zapata Chloride [Moles/Vol] 103 mmol/L Normal 98-107 [facility] Comment on above: Performed By: #### C MP, TSH, LIPID #### [facility] [address] [place] [address] Dr. David Zapata CO2 [Moles/Vol] 28.4 mmol/L Normal 21.0-32.[address] [facility] Comment on above: Performed By: #### C MP, TSH, LIPID #### [facility] [address] [place] [address] Dr. David Zapata Creatinine [Mass/Vol] 0.96 mg/dL Normal 0.55-1.02 [facility] Comment on above: Performed By: #### C MP, TSH, LIPID #### [facility] [address] [address] [address] David Zapata EGFR-AF SRI LANKAN >60 Normal >=[address] [facility] Comment on above: Performed By: #### C MP, TSH, LIPID #### [facility] [address] [address] [address] David Zapata EGFR-NON AF SRI LANKAN >60 Normal >=60 [facility] Comment on above: Performed By: #### C MP, TSH, LIPID #### [facility] [address] [address] [address] David Zapata Globulin (S) [Mass/Vol] 3.5 g/dL Normal [facility] Comment on above: Performed By: #### C MP, TSH, LIPID #### [facility] [address] [place] [address] Dr. Davdi Zapata Glucose [Mass/Vol] 94 mg/dL Normal 74-[address] [facility] Comment on above: Performed By: #### C MP, TSH, LIPID #### [facility] [address] [address] [address] David Zapata Potassium [Moles/Vol] 3.7 mmol/L Normal 3.5-5.1 [facility] Comment on above: Performed By: #### C MP, TSH, LIPID #### [facility] [address] [address] [address] David Zapata Protein [Mass/Vol] 7.0 g/dL Normal 6.4-8.[address] [facility] Comment on above: Performed By: #### C MP, TSH, LIPID #### [facility] [address] [address] [address] David Zapata Sodium [Moles/Vol] 139 mmol/L Normal 136-[address] [facility] Comment on above: Performed By: #### C MP, TSH, LIPID #### [facility] [address] [address] [address] David Zapata Urea nitrogen [Mass/Vol] 8.0 mg/dL Normal 7.0-18.0 [facility] Comment on above: Performed By: #### C MP, TSH, LIPID #### [facility] [address] [address] [address] David Zapata Urea nitrogen/Creatinine [Mass ratio] 8.3 mg/mg Normal [facility] Comment on above: Performed By: #### C MP, TSH, LIPID #### [facility] [address] [address] [address] David Zapata TSHon 11-18-2022 TSH 1.557 uIU/mL Normal 0.358-3.740 [facility] Comment on above: Performed By: #### C MP, TSH, LIPID #### [facility] [address] [address] [address] David Zapata Telemedicineon 11-18-2022 Telemedicine [id number] Elvia Gutiérrez 1975 F Date Provider Department Center 11/18/2022 VIDHI ECHEVARRIA [facility] Family History Problem Relation Age of Onset Supraventricular tachycardia Mother Heart disease Father Supraventricular tachycardia Sister Heart disease Paternal Grandmother Heart disease Paternal Grandfather Family Status - Relation Status Age at Mother Father Sister Paternal Grandmother Paternal Grandfather Level of Service:42709 [place] OFFICE/OUTPATIENT EST PT MAY NOT REQ PHYS/QHP Normal [facility] VITAMIN B12on 11-18-2022 Cobalamin (Vitamin B12) [Mass/Vol] 247.0 pg/mL Normal 193.0-986.0 [facility] Comment on above: Performed By: #### V ITB12 #### [facility] [address] [address] [address] David Zapata NM STRESS/REST MULTIon 11-04 NM STRESS/REST MULTI Patient: ELVIA GUTIÉRREZ. Exam Date: 11/04/2022 : 1975 Gender:F Ordering : DR VIDHI RAMOS M.D. Admission #: [id number] Family : Order #: [id number] CLICK HERE TO VIEW EXAM RADIOLOGY REPORT PROCEDURE: RADIONUCLIDE IMAGING STRESS/REST MULTI COMPARISON: NM STRESS/REST MULTI, 06/16/2019. INDICATIONS: Chest pain TECHNIQUE: Exam Description: Stress/Rest one day protocol gated SPECT Rest Imagin.9 mCi Tc-99m Cardiolite IV on 11/04/2022 Stress Imaging 30.3 mCi Tc-99m Cardiolite IV on 11/04/2022 Exercise Protocol: Flo Heart Rate (bpm): Rest: 78 Max: 153 PMHR: 87 Blood Pressure: Rest: 128/90 Max: 160/88 Exercise Time: Minutes: 9 Seconds: 15 Stage Reached: Stage: 4 Mets 10.1 Symptoms: Rest and peak stress ECG findings were abnormal and the exercise portion of the study was abnormal per attending physician Dr. Velasco due to EKG changes. For more details please see separate cardiac stress test report. FINDINGS: QUALITY OF STUDY: Excellent. PERFUSION DEFECT: None. LOCATION: N/A SIZE: N/A. SEVERITY: N/A. TYPE: N/A. WALL MOTION: Normal. LV SIZE: Normal. 78 mL. TID / TCD: None; 0.7 LVEF: Normal. Calculated EF 67%. SUMMARY: Myocardial perfusion imaging study is NORMAL. CONCLUSION: 1. Normal nuclear medicine myocardial perfusion scan. 2. Abnormal exercise portion of study due to EKG changes. Dictated by: Edilson Ferguson M.D. on 11/05/2022 at 10:59 Approved by: Edilson Ferguson M.D. on 11/05/2022 at 11:01 Normal [facility] Office Visiton 09-28-2022 Follow-up visit [id number] Elvia Gutiérrez 1975 F Date Provider Department Center 09/28/2022 271-CESIATAMARISA, EHAB [facility] Family History Problem Relation Age of Onset Supraventricular tachycardia Mother Heart disease Father Supraventricular tachycardia Sister Heart disease Paternal Grandmother Heart disease Paternal Grandfather Family Status - Relation Status Age at Mother Father Sister Paternal Grandmother Paternal Grandfather Level of Service:[address]51 [place] OFFICE/OUTPATIENT ESTABLISHED MOD MDM 30-39 MIN Normal [facility] MG MAMM SCREEN 3D AMANUEL CADon 07-10-2022 MG MAMM SCREEN 3D AMANUEL CAD Patient: TWILA GUTIÉRREZNORBERT De La O Exam Date: 07/10/2022 : 1975 Gender:F Ordering : DR PAT HUSTON M.D. Admission #: [id number] Family : Order #: [id number] CLICK HERE TO VIEW EXAM RADIOLOGY REPORT PROCEDURE: MAMMOGRAM SCREENING 3D BILATERAL CAD COMPARISON: MG MAMM SCREEN AMANUEL W CAD, 08/16/2019. MG MAMM SCREEN 3D AMANUEL CAD, 05/30/2021. INDICATIONS: Screening mammography Calculator Name NCI Breast Cancer Risk Assessment Tool 5 Year Breast Cancer Risk Not Reported. Lifetime Breast Cancer Risk Not Reported. Personal Breast Cancer No Personal Ovarian Cancer No Treatments None Family Cancers None LOCATION: [facility] BREAST COMPOSITION: Heterogeneously dense,which may obscure small masses. FINDINGS: DIAGNOSTIC CATEGORY 1--NEGATIVE. NO CHANGE FROM COMPARISON ASSESSMENT. Scattered benign-appearing nodules are present. Scattered benign-appearing calcifications are present. Scattered benign-appearing lymph nodes are present. RIGHT BREAST: No significant suspicious finding. LEFT BREAST: No significant suspicious finding. RECOMMENDATIONS: ROUTINE MAMMOGRAM AND CLINICAL EVALUATION IN 12 MONTHS. PLEASE NOTE: A NORMAL MAMMOGRAM DOES NOT EXCLUDE THE POSSIBILITY OF BREAST CANCER. A CLINICALLY SUSPICIOUS PALPABLE LUMP SHOULD BE BIOPSIED. Dictated by: Nilesh Deutsch MD on 07/10/2022 at 07:49 Approved by: Nilesh Deutsch MD on 07/10/2022 at 08:04 Normal [facility] CBC AUTO DIFFon 06-24-2022 BASO # 0.0 103/ul Normal 0.0-0.1 [facility] Comment on above: Performed By: #### C BC #### [facility] [address] [place] [address] Dr. David Zapata Basophils/100 WBC (Bld) 0.5 % Normal 0.2-2.0 [facility] Comment on above: Performed By: #### C BC #### [facility] [address] [place] [address] Dr. David Zapata EO # 0.3 103/ul Normal 0.0-0.7 [facility] Comment on above: Performed By: #### C BC #### [facility] [address] [place] [address] Dr. David Zapata Eosinophils/100 WBC (Bld) 3.4 % Normal 0.9-7.0 [facility] Comment on above: Performed By: #### C BC #### [facility] [address] [place] [address] Dr. David Zapata Erythrocyte distribution width (RBC) [Ratio] 12.1 % Normal 11.0-15.0 [facility] Comment on above: Performed By: #### C BC #### [facility] [address] [place] [address] Dr. David Zapata Hematocrit (Bld) [Volume fraction] 40.6 % Normal 36.0-48.0 [facility] Comment on above: Performed By: #### C BC #### [facility] [address] [place] [address] Dr. David Zapata Hemoglobin (Bld) [Mass/Vol] 13.5 g/dL Normal 12.0-16.0 [facility] Comment on above: Performed By: #### C BC #### [facility] [address] [place] [address] Dr. David Zapata IG # 0.03 10e3/ul Normal 0.00-0.03 [facility] Comment on above: Performed By: #### C BC #### [facility] [address] [place] [address] Dr. David Zapata IG % 0.4 % Normal 0.0-0.5 [facility] Comment on above: Performed By: #### C BC #### [facility] [address] [place] [address] Dr. David Zapata LYMPH # 2.1 103/ul Normal 1.2-3.8 [facility] Comment on above: Performed By: #### C BC #### [facility] [address] [place] [address] Dr. David Zapata Lymphocytes/100 WBC (Bld) 28.6 % Normal 20.5-60.0 [facility] Comment on above: Performed By: #### C BC #### [facility] [address] [place] [address] Dr. David Zapata MANUAL DIFF REQ NO Normal [facility] Comment on above: Performed By: #### C BC #### [facility] [address] [place] [address] Dr. David Zapata MCH (RBC) [Entitic mass] 29.2 pg Normal 26.7-34.0 [facility] Comment on above: Performed By: #### C BC #### [facility] [address] [place] [address] Dr. David Zapata MCHC (RBC) [Mass/Vol] 33.3 g/dL Normal 29.9-35.2 [facility] Comment on above: Performed By: #### C BC #### [facility] [address] [place] [address] Dr. David Zapata MCV (RBC) [Entitic vol] 87.9 fL Normal 81.0-99.0 [facility] Comment on above: Performed By: #### C BC #### [facility] [address] [place] [address] Dr. David Zapata MONO # 0.6 103/ul Normal 0.3-0.8 [facility] Comment on above: Performed By: #### C BC #### [facility] [address] [place] [address] Dr. David Zapata Monocytes/100 WBC (Bld) 7.9 % Normal 1.7-12.0 [facility] Comment on above: Performed By: #### C BC #### [facility] [address] [place] [address] Dr. David Zapata NEUT # 4.3 103/ul Normal 1.4-6.5 [facility] Comment on above: Performed By: #### C BC #### [facility] [address] [place] [address] Dr. David Zapata Neutrophils/100 WBC (Bld) 59.2 % Normal 43.0-75.0 [facility] Comment on above: Performed By: #### C BC #### [facility] [address] [place] [address] Dr. David Zapata Platelet mean volume (Bld) [Entitic vol] 9.2 fL Critically low 9.5-13.5 [facility] Comment on above: Performed By: #### C BC #### [facility] [address] [place] [address] Dr. David Zapata PLT 280 103/ul Normal 150-450 [facility] Comment on above: Performed By: #### C BC #### [facility] [address] [address] [address] David Zapata RBC 4.62 106/ul Normal 4.20-5.40 [facility] Comment on above: Performed By: #### C BC #### [facility] [address] [address] [address] David Zapata WBC 7.3 103/ul Normal 4.0-11.0 [facility] Comment on above: Performed By: #### C BC #### [facility] [address] [address] [address] David Zapata GLYCOHEMOGLOBIN A1Con 2021 ADA RECOMMENDATION SEE BELOW Normal [facility] [place] Comment on above: Result Comment: ADA RECOMMENDED LIMIT 4.0 - 6.0 ADA THERAPEUTIC TARGET < 7.0 ACTION SUGGESTED > 7.0 Performed By: #### C MP, TSH, LIPID #### [facility] [address] [place] [address] Dr. David Zapata Glucose [Mass/Vol] 103 mg/dL Normal [facility] [place] Comment on above: Performed By: #### C MP, TSH, LIPID #### [facility] [address] [address] [address] David Zapata HbA1c (Bld) [Mass fraction] 5.2 % Normal 4.5-6.2 [facility] Comment on above: Performed By: #### C MP, TSH, LIPID #### [facility] [address] [place] [address] Dr. David Zapata LIPID PROFILEon 06-24-2022 CHOL-HDL RATIO NORM SEE BELOW Normal [facility] Comment on above: Result Comment: 3.3 - 4.4 LOW RISK 4.4 - 7.1 AVERAGE RISK 7.1 - 11.0 MODERATE RISK >11.0 HIGH RISK Performed By: #### C MP, TSH, LIPID #### [facility] [address] [place] [address] Dr. David Zapata Cholesterol [Mass/Vol] 217 mg/dL Critically high <=200 [facility] Comment on above: Performed By: #### C MP, TSH, LIPID #### [facility] [address] [address] [address] David Zapata Cholesterol in HDL [Mass/Vol] 50 mg/dL Normal 40-60 [facility] Comment on above: Performed By: #### C MP, TSH, LIPID #### [facility] [address] [address] [address] David Zapata Cholesterol in LDL [Mass/Vol] 137.6 mg/dL Normal [facility] Comment on above: Performed By: #### C MP, TSH, LIPID #### [facility] [address] [address] [address] David Zapata Cholesterol.total/Ch olesterol in HDL [Mass ratio] 4.3 {ratio} Normal [facility] Comment on above: Performed By: #### C MP, TSH, LIPID #### [facility] [address] [address] [address] David Zapata HDL NORMAL > or = 60 mg/dl - LO W CARDIOVASCULAR RISK <40 mg/dl - HIGH CARDIOVASCULAR RISK Normal [facility] Comment on above: Performed By: #### C MP, TSH, LIPID #### [facility] [address] [address] [address] David Zapata LDL CALC NORMAL SEE BELOW Normal [facility] Comment on above: Result Comment: <100 mg/dl OPTIMAL 100 - 129 mg/dl NEAR OR ABOVE OPTIMAL 130 - 159 mg/dl BORDERLINE HIGH 160 - 189 mg/dl HIGH >190 mg/dl VERY HIGH Performed By: #### C MP, TSH, LIPID #### [facility] [address] [address] [address] David Zapata Triglyceride [Mass/Vol] 147 mg/dL Normal <=150 [facility] Comment on above: Performed By: #### C MP, TSH, LIPID #### [facility] [address] [address] [address] David Zapata VLDL CALC 29.4 mg/dL Normal [facility] Comment on above: Performed By: #### C MP, TSH, LIPID #### [facility] [address] [address] [address] David Zapata PROF 14(COMP METB)on 022 Albumin [Mass/Vol] 3.6 g/dL Normal 3.4-5.0 [facility] [place] Comment on above: Performed By: #### C MP, TSH, LIPID #### [facility] [address] [address] [address] David Zapata Albumin/Globulin [Mass ratio] 1.1 {ratio} Normal [facility] Comment on above: Performed By: #### C MP, TSH, LIPID #### [facility] [address] [address] [address] David Zapata ALP [Catalytic activity/Vol] 62 U/L Normal 46-116 [facility] Comment on above: Performed By: #### C MP, TSH, LIPID #### [facility] [address] [address] [address] David Zapata ALT [Catalytic activity/Vol] 21 U/L Normal 14-59 [facility] Comment on above: Performed By: #### C MP, TSH, LIPID #### [facility] [address] [address] [address] David Zapata Anion gap [Moles/Vol] 12.6 mmol/L Normal [facility] Comment on above: Performed By: #### C MP, TSH, LIPID #### [facility] [address] [address] [address] David Zapata AST [Catalytic activity/Vol] 14 U/L Critically low 15-37 [facility] Comment on above: Performed By: #### C MP, TSH, LIPID #### [facility] [address] [address] [address] David Zapata Bilirubin [Mass/Vol] 0.6 mg/dL Normal 0.2-1.0 [facility] Comment on above: Performed By: #### C MP, TSH, LIPID #### [facility] [address] [address] [address] David Zapata Calcium [Mass/Vol] 8.5 mg/dL Normal 8.5-10.[address] [facility] Comment on above: Performed By: #### C MP, TSH, LIPID #### [facility] [address] [address] [address] David Zapata Chloride [Moles/Vol] 103 mmol/L Normal 98-107 [facility] Comment on above: Performed By: #### C MP, TSH, LIPID #### [facility] [address] [address] [address] David Zapata CO2 [Moles/Vol] 26.2 mmol/L Normal 21.0-32.0 [facility] Comment on above: Performed By: #### C MP, TSH, LIPID #### [facility] [address] [place] [address] Dr. David Zapata Creatinine [Mass/Vol] 0.94 mg/dL Normal 0.55-1.02 [facility] Comment on above: Performed By: #### C MP, TSH, LIPID #### [facility] [address] [place] [address] Dr. David Zapata EGFR-AF SRI LANKAN >60 Normal >=[address] [facility] Comment on above: Performed By: #### C MP, TSH, LIPID #### [facility] [address] [place] [address] Dr. David Zapata EGFR-NON AF SRI LANKAN >60 Normal >=60 [facility] Comment on above: Performed By: #### C MP, TSH, LIPID #### [facility] [address] [place] [address] Dr. David Zapata Globulin (S) [Mass/Vol] 3.3 g/dL Normal [facility] Comment on above: Performed By: #### C MP, TSH, LIPID #### [facility] [address] [address] [address] David Zapata Glucose [Mass/Vol] 100 mg/dL Normal 74-[address] [facility] Comment on above: Performed By: #### C MP, TSH, LIPID #### [facility] [address] [place] [address] Dr. David Zapata Potassium [Moles/Vol] 3.8 mmol/L Normal 3.5-5.1 [facility] Comment on above: Performed By: #### C MP, TSH, LIPID #### [facility] [address] [place] [address] Dr. David Zapata Protein [Mass/Vol] 6.9 g/dL Normal 6.4-8.2 [facility] [place] Comment on above: Performed By: #### C MP, TSH, LIPID #### [facility] [address] [place] [address] Dr. David Zapata Sodium [Moles/Vol] 138 mmol/L Normal 136-145 [facility] [place] Comment on above: Performed By: #### C MP, TSH, LIPID #### [facility] [address] [place] [address] Dr. David Zapata Urea nitrogen [Mass/Vol] 7.0 mg/dL Normal 7.0-18.0 [facility] Comment on above: Performed By: #### C MP, TSH, LIPID #### [facility] [address] [place] [address] Dr. David Zapata Urea nitrogen/Creatinine [Mass ratio] 7.4 mg/mg Normal [facility] Comment on above: Performed By: #### C MP, TSH, LIPID #### [facility] [address] [place] [address] Dr. David Zapata TSHon 06-24-2022 TSH 1.434 uIU/mL Normal 0.358-3.740 [facility] Comment on above: Performed By: #### C MP, TSH, LIPID #### [facility] [address] [place] [address] Dr. David Zapata MRI BRAIN WO W CONon 022 MRI BRAIN WO W CON EXAMINATION: MRI BRAIN WO W CON HISTORY: Imaging of central nervous system abnormal , chronic headaches COMPARISON: MRI brain 06/10/2021 TECHNIQUE: A variety of imaging planes and parameters were utilized for visualization of suspected pathology. Images were performed without and with Dotarem contrast. FINDINGS: CEREBRUM: Small area of T2 hyperintensity within the deep white matter cephalad to the left lateral ventricle. CEREBELLUM: Extends down to, but not below the foramen magnum. No edema, hemorrhage, mass, acute infarction, or inappropriate atrophy. BRAINSTEM: Stable T2 hyperintensity within the kathryn. CSF SPACES: Ventricles, cisterns, and sulci are appropriate for age. No hydrocephalus, subarachnoid hemorrhage, or mass. SKULL: No mass or other significant visible lesion. SINUSES: Limited views demonstrate no significant mucosal thickening or fluid. ORBITS: Limited views are unremarkable. OTHER: No abnormal meningeal or parenchymal enhancement. IMPRESSION: 1. No acute infarction, intracranial hemorrhage, appreciable mass. 2. Increase in size of a small area of T2 hyperintensity within the left supraventricular deep white matter, and stable nonspecific T2 hyperintensity within the brainstem. Given patient's age, chronic small vessel ischemic changes are unlikely. Findings are nonspecific, but consideration should be given to a demyelinating process. Electronically authenticated by: EDILSON FERGUSON Date: 2022-06-10 06:40 Normal [facility] BASIC METABOLIC PANELon - Calcium [Mass/Vol] 8.6 mg/dL Normal 8.6-10.3 [facility] Comment on above: Order Comment: No: D o not add to previous draw Performed By: #### 5 610, [id number] #### [facility] [address] [place] [address], [facility] Chloride [Moles/Vol] 106 mmol/L Normal 98-107 [facility] Comment on above: Order Comment: No: D o not add to previous draw Performed By: #### 5 610, [id number] #### [facility] [address] [place] [address], [place] CO2 [Moles/Vol] 24 mmol/L Normal 21-31 [facility] Comment on above: Order Comment: No: D o not add to previous draw Performed By: #### 5 610, 70424 #### [facility] [address] [place] [address], [place] Creatinine [Mass/Vol] 0.90 mg/dL Normal 0.60-1.20 [facility] Comment on above: Order Comment: No: D o not add to previous draw Performed By: #### 5 610, 50772 #### [facility] [address] [place] [address], [place] GFR/1.73 sq M predicted among blacks MDRD (S/P/Bld) [Vol rate/Area] mL/min/{1.73_m2} Normal >60 [facility] Comment on above: Order Comment: No: D o not add to previous draw Performed By: #### 5 6100, 16992 #### [facility] [address] [place] [address], [place] GFR/1.73 sq M predicted among non-blacks MDRD (S/P/Bld) [Vol rate/Area] mL/min/{1.73_m2} Normal >60 [facility] Comment on above: Order Comment: No: D o not add to previous draw Performed By: #### 5 6100, 89416 #### [facility] [address] [place] [address], [place] Glucose [Mass/Vol] 97 mg/dL Normal 70-100 [facility] Comment on above: Order Comment: No: D o not add to previous draw Performed By: #### 5 6100, 14730 #### [facility] [address] [place] [address], [place] Potassium [Moles/Vol] 3.9 mmol/L Normal 3.5-5.1 [facility] Comment on above: Order Comment: No: D o not add to previous draw Performed By: #### 5 6100, 79609 #### [facility] [address] [place] [address], [place] Sodium [Moles/Vol] 136 mmol/L Normal 136-[address] [facility] Comment on above: Order Comment: No: D o not add to previous draw Performed By: #### 5 610, 13428 #### [facility] [address] [place] [address], [place] Urea nitrogen [Mass/Vol] 11 mg/dL Normal 7-25 [facility] Comment on above: Order Comment: No: D o not add to previous draw Performed By: #### 5 6101, 85048 #### [facility] [address] CBC COMPLETE BLOOD COUNTon 0 - Erythrocyte distribution width (RBC) [Ratio] 12.0 % Normal 11.5-15.0 [facility] Comment on above: Order Comment: No: D o not add to previous draw Performed By: #### 5 0608 #### [facility] [address] [place] [id number], [facility] Hematocrit (Bld) [Volume fraction] 42.7 % Normal 36.0-45.0 [facility] Comment on above: Order Comment: No: D o not add to previous draw Performed By: #### 5 0608 #### [facility] [address] [place] [id number], [facility] Hemoglobin (Bld) [Mass/Vol] 13.9 g/dL Normal 12.0-15.0 [facility] Comment on above: Order Comment: No: D o not add to previous draw Performed By: #### 5 0608 #### [facility] [address] [place] [address], [facility] MCH (RBC) [Entitic mass] 29.6 pg Normal 27.0-33.0 [facility] Comment on above: Order Comment: No: D o not add to previous draw Performed By: #### 5 0608 #### [facility] [address] [place] [address], [place] MCHC (RBC) [Mass/Vol] 32.6 g/dL Normal 32.0-35.0 [facility] Comment on above: Order Comment: No: D o not add to previous draw Performed By: #### 5 0608 #### [facility] [address] [place] [id number], [facility] MCV (RBC) [Entitic vol] 91.0 fL Normal 82.0-98.0 [facility] Comment on above: Order Comment: No: D o not add to previous draw Performed By: #### 5 0608 #### [facility] [address] Nucleated RBC/100 WBC (Bld) [Ratio] 0 % Normal 0-0 [facility] Comment on above: Order Comment: No: D o not add to previous draw Performed By: #### 5 0608 #### [facility] [address] [facility] [address], [facility] PLAT CNT 233 10*3/uL Normal 150-400 [facility] Comment on above: Order Comment: No: D o not add to previous draw Performed By: #### 5 0608 #### [facility] [address] [place] [address], [facility] RBC (Bld) [#/Vol] 4.69 10*6/uL Normal 3.80-5.00 [facility] Comment on above: Order Comment: No: D o not add to previous draw Performed By: #### 5 0608 #### [facility] [address] [place] [address], [facility] WBC (Bld) [#/Vol] 8.19 10*3/uL Normal 4.00-10.60 [facility] Comment on above: Order Comment: No: D o not add to previous draw Performed By: #### 5 0608 #### [facility] [address] Cardiovascular Lab Reporton 06-17-2019 Cardiovascular Lab Report [facility] Patient Name: Elvia Gutiérrez [facility] Alexy MR #: [id number] Department of Physician: Mike Polanco M.D. Division of Service Date: 06/16/2019 Cardiology Birthdate: 1975 Adult Cardiovascular Room #: 3AB [id number] [address], [place] [address] Cardiovascular Laboratory Report FINAL IMPRESSIONS: 1. Angiographically nonobstructive coronary arteries. 2. Normal global left ventricular systolic function by noninvasive imaging. RECOMMENDATIONS/PLAN: 1. Will start the patient on Imdur for suspected coronary spasm and/or esophageal spasm. 2. Will add a proton pump inhibitor for a possible element of gastroesophageal reflux disease. 3. Consider further investigations for alternate etiologies of her chest pain mainly pulmonary, musculoskeletal, and/or gastrointestinal. 4. She will be monitored overnight and discharged in the morning as long as she remains hemodynamically stable. 5. She can follow up with Dr. Ramos in the outpatient setting in the next 2 to 4 weeks. 6. She can follow up with Dr. Pat Huston, her family physician as scheduled. PROCEDURES: Bilateral selective coronary angiography via the left radial approach. METHODS: After risks, benefits, and alternatives were explained, written informed consent was obtained. The patient was prepped and draped in usual sterile fashion over the left wrist and left groin. Using 1% lidocaine solution, local infiltration anesthesia was achieved. Using a modified Seldinger technique and a micropuncture kit, access to the left radial artery was obtained. A 6-Lao glide sheath was inserted without difficulty. Bilateral selective coronary angiography was performed using JR4 catheter and AR2 catheter. Multiple catheters were used in attempts to cannulate the left coronary artery which arises from a superior fashion in the left coronary cusp and somewhat posteriorly. These included a JL-4, JL3.5, an AL1, an AL2, the Todd, an Ultimate and a Tig catheter. Ultimately the AR2 was successful. After reviewing the images and data, it was elected to conclude the procedure. All catheters removed. The radial sheath was removed with application of a TR band per protocol achieving optimal hemostasis. Overall, the patient tolerated the procedure well. There were no overt complications. She was to be transferred to her hospital room in stable condition. FINDINGS: Hemodynamics: AO 112/71. LEFT VENTRICULOGRAPHY: This was not performed. Ejection fraction is normal by echocardiography. CORONARY ARTERIES: Left main coronary artery: This arises from the left coronary cusp. It bifurcates into the left anterior descending and left circumflex coronary arteries and is free of significant stenosis. The origin is superiorly and somewhat posteriorly from the cost. Left anterior descending coronary artery: This is angiographically nonobstructive. Left circumflex coronary artery: This is angiographically nonobstructive. Right coronary artery: This is a dominant vessel giving rise to the posterior descending and posterolateral branches. It is angiographically nonobstructive. INDICATIONS: The patient is a 43-year-old with a strong family history of premature coronary artery disease, who presented with angina at rest and an abnormal EKG portion of a stress test. Findings and management strategies are outlined above. Electronically Signed by: Vidhi Ramos M.D. 06/21/2019 10:07 A Vidhi Ramos M.D. Date Dict: 06/16/2019/03:28 P/Vidhi Ramos M.D. Date Trans: 06/17/2019 04:09 Alexy/adela [id number] cc: Pat Huston M.D. [address] [place] [id number] Amos Vazquez M.D. [address] [place] [id number] Normal [facility] HEMOGLOBIN A1Con 06-17-2019 HbA1c (Bld) [Mass fraction] 4.8 % Normal 4.0-6.0 [facility] Comment on above: Order Comment: Yes: Add to Previous draw if able Performed By: #### 5 6101, 36189 #### [facility] [address] [place] [address], [facility] HbA1c (Bld) [Mass fraction] 91 mg/dL Normal 70-126 [facility] Comment on above: Order Comment: Yes: Add to Previous draw if able Performed By: #### 5 6101, 19780 #### [facility] [address] [place] [address], [facility] LIPID PROFILEon 06-17-2019 Cholesterol [Mass/Vol] 209 mg/dL High 120-200 [facility] Comment on above: Order Comment: Yes: Add to Previous draw if able Result Comment: CHOL ESTEROL REFERENCE RANGE: 20 YEARS AND OLDER CARDIOVASCULAR RISK Less than 200 mg/dl Low Risk 200 to 239 mg/dl Borderline Risk 240 mg/dl and greater High Risk Performed By: #### 1 0070, 70395, 71426, 61253 #### [facility] [address] [place] [address], [facility] Cholesterol in HDL [Mass/Vol] 35 mg/dL Normal 23-92 [facility] Comment on above: Order Comment: Yes: Add to Previous draw if able Result Comment: Slig ht variation in normal range could be due to gender and/or age. HDL CHOLESTEROL REFERENCE RANGE: 20 years and older Cardiovascular Risk > or =60 mg/dL Desirable 40 TO 59 mg/dL Low Risk <40 mg/dL High Risk Performed By: #### 1 0070, 15738, 67594, 68880 #### [facility] [address] [place] [address], [facility] Cholesterol in LDL [Mass/Vol] 139 mg/dL High 0-130 [facility] Comment on above: Order Comment: Yes: Add to Previous draw if able Result Comment: LDL IS A CALCULATION LDL IS ONLY VALID IF THE TRIG IS LESS THAN 400. Performed By: #### 1 0070, 18855, 15864, 84119 #### [facility] [address] [place] [address], [facility] Cholesterol.total/Ch olesterol in HDL [Mass ratio] 6.0 {ratio} High 0.0-4.5 [facility] Comment on above: Order Comment: Yes: Add to Previous draw if able Performed By: #### 1 0070, 55187, 03746, 02838 #### [facility] [address] [place] [address], [place] NON-HDL CHOLESTEROL 174 mg/dL Normal [facility] Comment on above: Order Comment: Yes: Add to Previous draw if able Performed By: #### 1 0070, 70080, 98826, 03670 #### [facility] [address] [place] [address], [facility] Triglyceride [Mass/Vol] 174 mg/dL High 40-149 [facility] Comment on above: Order Comment: Yes: Add to Previous draw if able Result Comment: TRIG LYCERIDE REFERENCE RANGE: 20 YEARS AND OLDER CARDIOVASCULAR RISK LESS THAN 150 mg/dl LOW RISK 150 TO 199 mg/dl BORDERLINE RISK 200 mg/dl AND GREATER HIGH RISK Performed By: #### 1 0070, 99617, 55910, 53205 #### [facility] [address] [place] [address], [facility] VLDL CHOL 35 mg/dL Normal 0-40 [facility] Comment on above: Order Comment: Yes: Add to Previous draw if able Performed By: #### 1 0070, 95492, 74373, 76301 #### [facility] [address] [place] [address], [facility] MAGNESIUM BLOODon 06-17-2019 Magnesium [Mass/Vol] 2.2 mg/dL Normal 1.9-2.7 [facility] Comment on above: Order Comment: No: D o not add to previous draw Performed By: #### 1 0070, 66933, 93729, 35989 #### [facility] [address] [place] [address], [facility] PHOSPHORUS BLOODon 9 Phosphate [Mass/Vol] 4.3 mg/dL Normal 2.5-5.0 [facility] Comment on above: Order Comment: No: D o not add to previous draw Performed By: #### 5 6101, 17368 #### [facility] [address] [place] [address], [facility] APTTon 06-16-2019 aPTT Coag (Bld) [Time] 27.3 s Normal 25.0-35.0 [facility] Comment on above: Result Comment: ALL RESULTS MUST BE INTERPRETED WITH RESPECT TO BLOOD DRAWING ARTIFACT OR DILUTION ERROR OF ANTICOAGULANT AT THE TIME OF SAMPLING. THE APTT SHOULD NOT BE USED TO MONITOR UNFRACTIONATED HEPARIN THERAPY, THIS LABORATORY NO LONGER HAS AN ESTABLISHED THERAPEUTIC RANGE BASED ON THE APTT. IT IS RECOMMENDED THAT THE [facility] - HEPARIN ASSAY (ANTI-XA ACTIVITY) BE USED FOR THIS PURPOSE. Performed By: #### 5 6101, 56756 #### [facility] [address] [place] [address], [facility] BASIC METABOLIC PANELon 05-26 Calcium [Mass/Vol] 9.3 mg/dL Normal 8.6-10.3 [facility] Comment on above: Order Comment: No: D o not add to previous draw Performed By: #### 1 0070, 85360, 56449, 73030, 09985 #### [facility] [address] [place] [address], [facility] Chloride [Moles/Vol] 105 mmol/L Normal 98-107 [facility] Comment on above: Order Comment: No: D o not add to previous draw Performed By: #### 1 0070, 37802, 66309, 14276, 70185 #### [facility] [address] [place] [address], [facility] CO2 [Moles/Vol] 23 mmol/L Normal 21-31 [facility] Comment on above: Order Comment: No: D o not add to previous draw Performed By: #### 1 0070, 55001, 72123, 34502, 78407 #### [facility] [address] [place] [address], [facility] Creatinine [Mass/Vol] 0.85 mg/dL Normal 0.60-1.20 [facility] Comment on above: Order Comment: No: D o not add to previous draw Performed By: #### 1 0070, 44689, 15854, 08719, 79202 #### [facility] [address] [place] [address], [facility] GFR/1.73 sq M predicted among blacks MDRD (S/P/Bld) [Vol rate/Area] mL/min/{1.73_m2} Normal >60 [facility] Comment on above: Order Comment: No: D o not add to previous draw Performed By: #### 1 0070, 21654, 71049, 17756, 50162 #### [facility] [address] [place] [address], [place] GFR/1.73 sq M predicted among non-blacks MDRD (S/P/Bld) [Vol rate/Area] mL/min/{1.73_m2} Normal >60 [facility] Comment on above: Order Comment: No: D o not add to previous draw Performed By: #### 1 0070, 38857, 65937, 99950, 19405 #### [facility] [address] [place] [address], [place] Glucose [Mass/Vol] 91 mg/dL Normal 70-[address] [facility] Comment on above: Order Comment: No: D o not add to previous draw Performed By: #### 1 0070, 13350, 02691, 66796, 38364 #### [facility] [address] [place] [address], [place] Potassium [Moles/Vol] 3.9 mmol/L Normal 3.5-5.1 [facility] Comment on above: Order Comment: No: D o not add to previous draw Performed By: #### 1 0070, 31383, 29743, 44545, 78997 #### [facility] [address] [place] [address], [place] Sodium [Moles/Vol] 136 mmol/L Normal 136-[address] [facility] Comment on above: Order Comment: No: D o not add to previous draw Performed By: #### 1 0070, 93254, 06858, 07869, 66574 #### [facility] [address] [place] [address], [place] Urea nitrogen [Mass/Vol] 10 mg/dL Normal 7-25 [facility] Comment on above: Order Comment: No: D o not add to previous draw Performed By: #### 1 0070, 90577, 38186, 22440, 80333 #### [facility] [address] [place] [address], [facility] FREE T3on 06-16-2019 Free T3 [Mass/Vol] 2.6 pg/mL Normal 2.5-3.[address] [facility] Comment on above: Performed By: #### 1 0070, 39188, 10296, 99862, 63034 #### [facility] [address] [place] [address], [facility] FREE T4on 06-16-2019 Free T4 [Mass/Vol] 0.73 ng/dL Normal 0.71-1.[address] [facility] Comment on above: Performed By: #### 1 0070, 16098, 17266, 71435, 81801 #### [facility] [address] [place] [address], [facility] MAGNESIUM BLOODon 06-16-2019 Magnesium [Mass/Vol] 2.2 mg/dL Normal 1.9-2.7 [facility] Comment on above: Order Comment: No: D o not add to previous draw Miss Performed By: #### 1 0070, 18708, 11234, 83406, 38185 #### [facility] [address] PROTHROMBIN TIMEon 9 INR Coag (PPP) [Relative time] 1.06 {INR} Normal 0.91-1.16 [facility] Comment on above: Result Comment: ACCC P RECOMMENDED INR FOR WARFARIN THERAPY ------- ------- CONDITION INR PROPHYLAXIS OF VENOUS THROMBOSIS 2-3 (HIGH-RISK SURGERY) TREATMENT OF VENOUS THROMBOSIS 2-3 TREATMENT OF PULMONARY EMBOLISM 2-3 PREVENTION OF SYSTEMIC EMBOLISM: 2-3 ACUTE MYOCARDIAL INFARCTION TISSUE HEART VALVES VALVULAR HEART DISEASE ATRIAL FIBRILLATION RECURRENT SYSTEMIC EMBOLISM MECHANICAL HEART VALVE 2.5-3.5 FROM: ORAL ANTICOAGULANTS. MECHANISM OF ACTION, CLINICAL EFFECTIVENESS, AND OPTIMAL THERAPEUTIC RANGE. CHEST 1995;108:231S-246S. Performed By: #### 5 6101, 56645 #### [facility] [address] PT Coag (PPP) [Time] 13.8 s Normal 12.3-14.8 [facility] Comment on above: Result Comment: ALL RESULTS MUST BE INTERPRETED WITH RESPECT TO BLOOD DRAWING ARTIFACT OR DILUTION ERROR OF ANTICOAGULANT AT THE TIME OF SAMPLING. Performed By: #### 5 6101, 12475 #### [facility] [address] TSH3on 06-16-2019 TSH 3RD GENERATION 1.94 uIU/mL Normal 0.34-5.60 [facility] Comment on above: Performed By: #### 1 0070, 32285, 67190, 13317, 11085 #### [facility] [address] [facility] [address] Vital Signs Date Time Vital Sign Value Performing Clinician Faci lity 09-07-2023 10:29-0500 Body height 165.1 cm MD Pat Huston Work Phone: [facility] 09-07-2023 10:29-0500 Body weight 97.52 kg MD Pat Huston Work Phone: [facility] Encounters Encounter Date Encounter Type Care Provider Facility Start: 09-07-2023 Telephone encounter Pat Huston [facility] Start: 09-07-2023 End: 09-07-2023 ambulatory Pat Huston Facility:[facility] Start: 09-07-2023 End: 09-07-2023 ambulatory MD Pat Huston Work Phone: [facility] Work Phone: Start: 09-07-2023 End: 09-07-2023 Patient encounter procedure MD Pat Huston Work Phone: [facility] [place] Work Phone: Start: 08-06-2023 End: 08-06-2023 ambulatory Pat Huston Other [facility] Other Start: 08-06-2023 Telephone encounter Pat Huston [facility] Start: 07-27-2023 End: 07-27-2023 ambulatory Pat Huston Other [facility] Other Start: 07-27-2023 Telephone encounter Pat Huston [facility] Start: 07-13-2023 End: 07-13-2023 ambulatory Pat Huston Other [facility] Other Start: 07-13-2023 Telephone encounter Pat Robel [facility] Start: 07-06-2023 End: 07-06-2023 ambulatory Pat Huston Other [facility] Other Start: 07-06-2023 Telephone encounter Pat Huston [facility] Start: 06-14-2023 End: 06-14-2023 ambulatory [facility] Start: 04-22-2023 ambulatory Kevon Serna acility:[facility] Start: 03-16-2023 End: 03-16-2023 ambulatory [facility] Start: 03-11-[address] VIDHI RAMOS Facili ty:[facility] Start: 02-16-2023 End: 02-17-[address] JL REAL Facility:[facility] Start: 02-11-2023 End: 02-12-[address] VIDHI RAMOS Facility:[facility] Start: 02-03-2023 End: 02-03-2023 ambulatory [facility] Start: 12-29-2022 End: 12-29-2022 ambulatory [facility] Start: 12-03-2022 End: 12-04-2022 ambulatory [facility] Start: 11-20-2022 Encounter for genera l adult medical examination without abnormal findings DR PAT HUSTON [facility] Start: 11-19-2022 End: 11-19-2022 ambulatory Pat Huston Other [facility] Other Start: 11-19-2022 Telephone encounter Pat Huston [facility] Start: 11-18-2022 End: 11-18-2022 ambulatory [facility] Start: 11-18-2022 End: 11-19-[address] PAT HUSTON Facility:[facility] Start: 11-18-2022 End: 11-19-2022 Encounter for general adult medical examination without abnormal findings DR PAT HUSTON Facility:[facility] Start: 11-04-2022 End: 11-05-[address] VIDHI RAMOS Facility:[facility] Start: 09-28-2022 End: 09-28-2022 ambulatory [facility] Start: 07-10-2022 End: 07-11-[address] PAT HUSTON Facility:[facility] Start: 06-26-2022 Adult health examination Vielka Huston Other [facility] Other Start: 06-26-2022 Encounter for genera l adult medical examination without abnormal findings Pat Huston Other [facility] Other Start: 06-24-2022 End: 06-25-[address] PAT HUSTON Facility:[facility] Start: 06-09-2022 End: 06-10-[address] DOCTOR MEDINA Facility:[facility] Start: 06-16-2019 End: 06-17-2019 Patient encounter procedure ALESSANDRO GARRIDO Facility:[facility] Start: 10-27-2016 Gynecological examination normal Pat Huston Other [facility] Other Procedures Date Procedure Procedure Detail Performing Clinician Start: 09-07-2023 MRI of bilateral sasha asts with contrast MD Pat Huston Work Phone: Start: 08-12-2009 visit Pat Huston Other Start: 08-29-2007 Contraception care education Pat Huston Other Screening for malign ant neoplasm of breast Pat Huston Other Viral screening Pat Huston Other Payers Date Payer Category Payer Self-pay [id number] 2022 Unknown [id number] 2019 Unknown [id number] 2. [id number] 1977 Unknown [id number] 2.16.8 [id number] 1977 Unknown [id number] 2.16.84 [id number] 1977 Unknown [id number] 2.16.84 [id number] 1977 Unknown [id number] 2.16.84 [id number] 1977 Unknown [id number] 2.16.84 [id number] 1977 Unknown [id number] 2.16.84 [id number] 1977 Unknown [id number] 2.16.84 [id number] 1977 Unknown [id number] 2.16.84 [id number] 1977 Unknown [id number] 2.16.84 [id number] 1959 Self-pay [id number] Unknown [id number] Unknown Other1 (STD) [id number] Unknown [id number] 2.16.8 [id number] Unknown [id number] 2.16.8 [id number] Social History Date Type Detail Facility Unknown if ever smoked [facility] Other Sex Assigned At Sex Assigned At Bir th [facility] Other Start: 1975 Sex Assigned At Female F [facility] Clinical Notes 09-28-2022 to 07-27-2023 Note Date & Type Note Facility 07-27-2023 Evaluation note Encounter Date Diagnosis Assessment Notes Jul, Abnormal mammogram (ICD-10 - R92.8) [facility] Other 09-19-2023 Evaluation note* Encounter Date Diagnosis Assessment Notes Treatment Notes Treatment Clinical Notes Jun, Abnormal mammogram of right breast (ICD-10 - R92.8) [facility] Other 09-12-2023 Evaluation note* Encounter Date Diagnosis Assessment Notes Treatment Notes Treatment Clinical Notes Jun, Screening mammogram for breast cancer (ICD-10 - Z12.31) [facility] Chief Complaint: Patient here for 3 mo follow up CAD and hypertension. She was started on hydrochlorothiazide at last apt in February 2023. Had PFT's in March. Chest pain has resolved, but has more frequent palpitations, nothing horrible . Still gasping for air . Dizziness is worsening and says she almost passes out when she laughs hard. HPI: Elvia Gutiérrez is a 47 y.o. female With suspected vasospastic angina superimposed on moderate coronary artery disease as well as palpitations here in routine follow-up She continues to have exertional shortness of breath and shortness of breath at rest. She also complains of significant lightheadedness and dizziness either when she is laughing hard or exerting herself. Graft she has occasional extra beats. These are not associated with lightheadedness. Cardiology ROS: Review of Systems Cardiovascular: Positive for dyspnea on exertion and palpitations. Respiratory: Positive for shortness of breath. Neurological: Positive for dizziness, headaches and light-headedness. All other systems reviewed and are negative. Past Medical History She has a past medical history of Paroxysmal tachycardia (CMS/HCC), Prinzmetal angina (CMS/HCC), and WPW (Qfgju-Wwqbvkoan-Yzwqf syndrome). Surgical History She has a past surgical history that includes Cardiac catheterization and Hysterectomy. Social History She reports that she has never smoked. She has never used smokeless tobacco. She reports that she does not currently use alcohol. She reports that she does not use drugs. Family History Family History Problem Relation Name Age of Onset Supraventricular tachycardia Mother Heart disease Father Supraventricular tachycardia Sister Heart disease Paternal Grandmother Heart disease Paternal Grandfather Allergies Levofloxacin, Meperidine, Oxycodone-acetaminophen, and Propoxyphene n-acetaminophen Medications Current Outpatient Medications: aspirin 81 mg chewable tablet, Chew 1 tablet (81 mg) in the morning., Disp: 90 tablet, Rfl: 3 buPROPion XL (Wellbutrin XL) 300 mg 24 hr tablet, Take 300 mg by mouth in the morning., Disp: , Rfl: clopidogrel (Plavix) 75 mg tablet, Take 1 tablet (75 mg) by mouth once daily as directed., Disp: 30 tablet, Rfl: 0 dilTIAZem CD (Cardizem CD) 120 mg 24 hr capsule, Take 1 capsule (120 mg) by mouth in the morning., Disp: 90 capsule, Rfl: 3 DULoxetine (Cymbalta) [address] capsule, Take 30 mg by mouth in the morning., Disp: , Rfl: hydroCHLOROthiazide (HYDRODiuril) 25 mg tablet, Take 1 tablet (25 mg) by mouth in the morning., Disp: 90 tablet, Rfl: 3 isosorbide mononitrate ER (Imdur) 120 mg 24 hr tablet, Take 1 tablet (120 mg) by mouth in the morning for 10 days. Do not crush or chew., Disp: 10 tablet, Rfl: 0 metoprolol tartrate (Lopressor) 25 mg tablet, Take 1 tablet (25 mg) by mouth in the morning and at bedtime., Disp: 60 tablet, Rfl: 0 nitroglycerin (Nitrostat) 0.4 mg SL tablet, Place 1 tablet (0.4 mg) under the tongue every 5 (five) minutes if needed for chest pain. May repeat dose every 5 minutes for up to 3 doses total., Disp: 50 tablet, Rfl: 0 rosuvastatin (Crestor) 40 mg tablet, Take 1 tablet (40 mg) by mouth at bedtime., Disp: 30 tablet, Rfl: 0 Last Recorded Vitals BP 106/68 (BP Location: Left arm, Patient Position: Sitting) Pulse 57 Ht 1.676 m (5' 6 ) Wt 98.4 kg (217 lb) SpO2 99% BMI 35.02 kg/m??? Physical Examination: GENERAL: alert and oriented x3, well developed, in no acute distress. HEAD: atraumatic, normocephalic. EYES: ROMAN, EOMI. NECK: trachea midline, no JVD present, no carotid bruits present. CARDIAC: S1, S2 present. RRR. No murmur, rubs, or gallops. RESPIRATORY: CTAB, no increased effort of breathing, no rales, rhonchi, or wheezing. ABDOMEN: soft, nontender, nondistended. EXTREMITIES: no lower extremity edema, peripheral pulses are 2+ bilaterally. No rash/skin discoloration present. NEURO: strength/sensation equal and symmetric in bilateral upper and lower extremities. PSYCH: appropriate mood, affect, and judgement. 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 I have asked her to discuss the symptoms with her neurologist. Should her shortness of breath continue, could potentially consider a transesophageal echocardiogram to evaluate her intra-atrial shunt and exclude a small secundum atrial sep (more content not included)...[facility] Chief Complaint: Patient here for follow up bubble study. C/o worsening SOB w/wo exertion. Chest pain has eased up she says. HPI: Elvia Gutiérrez is a 47 y.o. female With a history of known coronary artery disease, palpitations, here for follow-up Since I last saw her, her neurologist had ordered echo with bubble study; these showed multiple embolic symptoms. A subsequent echocardiogram revealed a small intracardiac shunt likely consistent with a patent perez ovale. Pertinently, this was obtained due to headaches and abnormal MRI. She has no history of documented cerebrovascular accident or transient ischemic attacks. Her chest pain has improved. However she gets shortness of breath even when sitting. This is quite unusual. She denies recent upper respiratory infections. She denies cough or expectoration. She has had no prior history of asthma or COPD Cardiology ROS: Review of Systems Cardiovascular: Positive for chest pain (improving), dyspnea on exertion (worsening) and palpitations. Respiratory: Positive for shortness of breath (worsening). Neurological: Positive for headaches and light-headedness. All other systems reviewed and are negative. Past Medical History She has a past medical history of Paroxysmal tachycardia (CMS/HCC), Prinzmetal angina (CMS/HCC), and WPW (Gqrkg-Kgaypmsuh-Tgdpc syndrome). Surgical History She has a past surgical history that includes Cardiac catheterization and Hysterectomy. Social History She reports that she has never smoked. She has never used smokeless tobacco. She reports that she does not currently use alcohol. She reports that she does not use drugs. Family History Family History Problem Relation Name Age of Onset Supraventricular tachycardia Mother Heart disease Father Supraventricular tachycardia Sister Heart disease Paternal Grandmother Heart disease Paternal Grandfather Allergies Levofloxacin, Meperidine, Oxycodone-acetaminophen, and Propoxyphene n-acetaminophen Medications Current Outpatient Medications: aspirin 81 mg chewable tablet, Chew 1 tablet (81 mg) in the morning., Disp: 30 tablet, Rfl: 3 buPROPion XL (Wellbutrin XL) 300 mg 24 hr tablet, Take 300 mg by mouth in the morning., Disp: , Rfl: clopidogrel (Plavix) 75 mg tablet, Take 1 tablet (75 mg) by mouth in the morning., Disp: 30 tablet, Rfl: 3 dilTIAZem CD (Cardizem CD) 120 mg 24 hr capsule, Take 1 capsule (120 mg) by mouth in the morning., Disp: 90 capsule, Rfl: 3 DULoxetine (Cymbalta) [address] capsule, Take 30 mg by mouth in the morning., Disp: , Rfl: isosorbide mononitrate ER (Imdur) 120 mg 24 hr tablet, Take 1 tablet (120 mg) by mouth in the morning for 10 days. Do not crush or chew., Disp: 10 tablet, Rfl: 0 metoprolol tartrate (Lopressor) 25 mg tablet, Take 1 tablet (25 mg) by mouth in the morning and at bedtime., Disp: 60 tablet, Rfl: 3 nitroglycerin (Nitrostat) 0.4 mg SL tablet, Place 1 tablet (0.4 mg) under the tongue every 5 (five) minutes if needed for chest pain. May repeat dose every 5 minutes for up to 3 doses total., Disp: 50 tablet, Rfl: 0 rosuvastatin (Crestor) 40 mg tablet, Take 1 tablet (40 mg) by mouth in the morning., Disp: 30 tablet, Rfl: 3 Last Recorded Vitals Patient Vitals for the past 24 hrs: BP Pulse SpO2 Height Weight 03/16/23 0904 108/75 63 98 % 1.676 m (5' 6 ) 94.3 kg (208 lb) Physical Examination: GENERAL: alert and oriented x3, well developed, in no acute distress. HEAD: atraumatic, normocephalic. EYES: ROMAN, EOMI. NECK: trachea midline, no JVD present, no carotid bruits present. CARDIAC: S1, S2 present. RRR. No murmur, rubs, or gallops. RESPIRATORY: CTAB, no increased effort of breathing, no rales, rhonchi, or wheezing. ABDOMEN: soft, nontender, nondistended. EXTREMITIES: no lower extremity edema, peripheral pulses are 2+ bilaterally. No rash/skin discoloration present. NEURO: strength/sensation equal and symmetric in bilateral upper and lower extremities. PSYCH: appropriate mood, affect, and judgement. Investigations: Echocardiogram: Global left ventricular systolic function is normal. Ejection fraction is 60 to 65%. No wall motion abnormalities. Normal diastolic function. The right atrium is mildly dilated. The right ventricle is normal in size and systolic function. Mild to moderate tricuspid regurgitation. 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 I scanned it into [facility] for your review. Thanks.[facility]04-12-2023 [facility] Note Chief Complaint: Patient here for follow up heart cath. Still has chest pain and it's becoming more intense she says. Says her SOB is much better. HPI: Elvia Gutiérrez is a 47 y.o. female Cardiology ROS: Review of Systems Cardiovascular: Positive for chest pain, dyspnea on exertion (improving) and palpitations. Neurological: Positive for headaches and light-headedness. All other systems reviewed and are negative. Past Medical History She has a past medical history of Paroxysmal tachycardia (CMS/HCC), Prinzmetal angina (CMS/HCC), and WPW (Mkalm-Mqyxefccj-Nmoeq syndrome). Surgical History She has a past surgical history that includes Cardiac catheterization and Hysterectomy. Social History She reports that she has never smoked. She has never used smokeless tobacco. She reports that she does not currently use alcohol. She reports that she does not use drugs. Family History Family History Problem Relation Name Age of Onset Supraventricular tachycardia Mother Heart disease Father Supraventricular tachycardia Sister Heart disease Paternal Grandmother Heart disease Paternal Grandfather Allergies Levofloxacin, Meperidine, Oxycodone-acetaminophen, and Propoxyphene n-acetaminophen Medications Current Outpatient Medications: aspirin 81 mg chewable tablet, Chew 1 tablet (81 mg) in the morning., Disp: 30 tablet, Rfl: 3 buPROPion XL (Wellbutrin XL) 300 mg 24 hr tablet, Take 300 mg by mouth in the morning., Disp: , Rfl: clopidogrel (Plavix) 75 mg tablet, Take 1 tablet (75 mg) by mouth in the morning., Disp: 30 tablet, Rfl: 3 DULoxetine (Cymbalta) [address] capsule, Take 30 mg by mouth in the morning., Disp: , Rfl: isosorbide mononitrate ER (Imdur) 120 mg 24 hr tablet, Take 1 tablet (120 mg) by mouth in the morning for 10 days. Do not crush or chew., Disp: 10 tablet, Rfl: 0 metoprolol tartrate (Lopressor) 25 mg tablet, Take 1 tablet (25 mg) by mouth in the morning and at bedtime., Disp: 60 tablet, Rfl: 3 nitroglycerin (Nitrostat) 0.4 mg SL tablet, Place 1 tablet (0.4 mg) under the tongue every 5 (five) minutes if needed for chest pain. May repeat dose every 5 minutes for up to 3 doses total., Disp: 50 tablet, Rfl: 0 rosuvastatin (Crestor) 40 mg tablet, Take 1 tablet (40 mg) by mouth in the morning., Disp: 30 tablet, Rfl: 3 Last Recorded Vitals Patient Vitals for the past 24 hrs: BP Pulse SpO2 Height Weight 02/03/23 1347 112/80 66 98 % 1.676 m (5' 6 ) 95.3 kg (210 lb) Physical Examination: GENERAL: alert and oriented x3, well developed, in no acute distress. HEAD: atraumatic, normocephalic. EYES: ROMAN, EOMI. NECK: trachea midline, no JVD present, no carotid bruits present. CARDIAC: S1, S2 present. RRR. No murmur, rubs, or gallops. RESPIRATORY: CTAB, no increased effort of breathing, no rales, rhonchi, or wheezing. ABDOMEN: soft, nontender, nondistended. EXTREMITIES: no lower extremity edema, peripheral pulses are 2+ bilaterally. No rash/skin discoloration present. NEURO: strength/sensation equal and symmetric in bilateral upper and lower extremities. PSYCH: appropriate mood, affect, and judgement. Cardiovascular Laboratory Report FINAL IMPRESSIONS: Moderate angiographic, non-hemodynamically significant stenosis of the left anterior descending coronary artery as assessed by intravascular ultrasound (IVUS) as well as physiological evaluation by instantaneous wave free ratio (iFR) Mild plaque disease of the left circumflex coronary artery Angiographically nonobstructive right coronary artery Normal global left ventricular systolic function by noninvasive imaging RECOMMENDATIONS: Aggressive cardiovascular risk factor modification Optimal medical therapy for coronary artery disease should include aspirin, high intensity statin specifically Crestor 40 mg a day, and a beta-rob for anginal relief. Will add a second antiplatelet in the form of Plavix for 3 to 6 months given the extensive plaque disease found on intravascular ultrasound. Fasting lipid profile and liver function tests 6 to 8 weeks following initiation of a statin We will discontinue Cardizem to allow for addition of a beta-rob. Follow-up with Dr. Ramos in the outpatient setting in the next 2 to 3 weeks Follow-up with her family physician as scheduled Assessment: Coronary artery disease Suspected superimposed variant angina Palpitations Exertional shortness of breath improving Plan: Continue optimal medical therapy for coronary artery disease including aspirin, Plavix, Lopressor and Crestor Fasting lipid profile and liver function tests Given worsening chest pain, this may be unopposed alpha stimulation given the beta-blockade. Will restart Cardizem at low doses and uptitrate as needed. May consider addition of Ranexa as needed. I explained the rationale of intensifying medical therapy and avoidance of revascular (more content not included)...[facility] 12-29-2022 NoteCardiovascular Laboratory Report FINAL IMPRESSIONS: Moderate angiographic, non-significant stenosis of the left anterior descending coronary artery as assessed by intravascular ultrasound (IVUS) as well as physiological evaluation by instantaneous wave free ratio (iFR) Mild plaque disease of the left circumflex coronary artery Angiographically nonobstructive right coronary artery Normal global left ventricular systolic function by noninvasive imaging RECOMMENDATIONS: Aggressive cardiovascular risk factor modification Optimal medical therapy for coronary artery disease should include aspirin, high intensity statin specifically Crestor 40 mg a day, and a beta-rob for anginal relief. Will add a second antiplatelet in the form of Plavix for 3 to 6 months given the extensive plaque disease found on intravascular ultrasound. Fasting lipid profile and liver function tests 6 to 8 weeks following initiation of a statin We will discontinue Cardizem to allow for addition of a beta-rob. Follow-up with Dr. Ramos in the outpatient setting in the next 2 to 3 weeks Follow-up with her family physician as scheduled PROCEDURES: Ultrasound-guided access to the right common femoral artery, limited femoral angiography, bilateral selective coronary angiography, METHODS: After risks, benefits, and alternatives were explained, written informed consent was obtained. The patient was prepped and draped in usual sterile fashion over both groins. Using 1% lidocaine solution, local infiltration anesthesia was achieved. Using a modified Seldinger technique, a micropuncture kit, and under ultrasound guidance, access to the right common femoral artery was obtained. A 6 Lao 11 cm sheath was exchanged and without difficulty. Angiography via the 6 Lao sheath was performed. Bilateral selective coronary angiography was performed using JL4 and JR4 catheters. After reviewing the images, it was elected to proceed with further anatomical and physiological assessment of the left anterior descending. A 6 Lao XB 3.5 guide catheter was advanced then and coaxially engaged into the left main ostium. 0.014 run-through NS wire was advanced through the catheter, across the suspect stenosis and positioned distally. The Urvew IVUS catheter was advanced over the wire. It was used to assess the lesion. This was repeated using chroma flow. The IV catheter was removed. The run-through NS wire was removed. At this juncture it was elected to proceed with physiological assessment of the lesion. The Omni pressure wire was advanced through the catheter with pressures normalized just after exiting. The wire was used to cross the suspect stenosis. An instantaneous fractional wave free ratio (iFR) was performed. The wire was removed. Final angiography showed unchanged REMEDIOS flow with no dissection, thrombus or distal wire trauma. At this juncture, it was elected to conclude the procedure. The guide catheter was removed. A 6 Lao minx project manager finance closure device was deployed per protocol achieving optimal hemostasis. Overall the patient tolerated the procedure well. There were no overt complications. He was to be transferred to the holding area in stable condition. FINDINGS: Hemodynamics: 124/82 [96] LEFT VENTRICULOGRAPHY: This was not performed, ejection fraction is normal by noninvasive imaging. CORONARY ARTERIES: Left main coronary artery: This arises from the left coronary cusp, it bifurcates into the left anterior descending and left circumflex coronary arteries it is free of significant stenosis. Left anterior descending coronary artery: This has a proximal 40 to 50% stenosis followed by an ectatic midportion. Instantaneous wave free ratio (iFR) across the lesion is 0.97. There is a mid vessel 30% stenosis. There is sluggish coronary flow consistent with REMEDIOS II flow from the mid to distal portion. It is a long wraparound vessel. Left circumflex coronary artery: Shows mild luminal irregularities with no high-grade stenoses. Right coronary artery: This is a dominant vessel giving rise to the posterior descending and posterolateral branches. It shows no significant stenoses. Intra-vascular ultrasound (IVUS): This shows a minimum lesional area of 5.0 mm???. There is significant plaque disease with caliber reduction just prior to the ectatic segment of the left anterior descending. No dissection flaps are seen. No thrombus is appreciated. Limited femoral angiography: This shows no significant plaque and anatomy suitable for closure device INDICATIONS: Worsening angina, coronary artery disease [facility] Note Chief Complaint: Patient being seen via telephone call for follow up stress test. Says her chest pain is becoming more intense. Dizziness is worsening. Cardizem was increased at last apt in Sep 2022. HPI: Elvia Gutiérrez is a 47 y.o. female with a history of vasospastic angina here in follow-up She has been experiencing more frequent episodes of chest pain at rest and with exertion. We had increased her calcium channel rob and she is on maximum dose Imdur. She is starting to become lightheaded and dizzy. No orthopnea, no paroxysmal, dyspnea, no lower extremity edema. Treadmill stress test showed abnormal EKG changes however her nuclear images showed no ischemia with a preserved ejection fraction Cardiology ROS: Review of Systems Cardiovascular: Positive for chest pain, dyspnea on exertion and palpitations. Neurological: Positive for headaches and light-headedness. All other systems reviewed and are negative. Past Medical History She has a past medical history of Paroxysmal tachycardia (CMS/HCC), Prinzmetal angina (CMS/HCC), and WPW (Ovrve-Rogsuwxnx-Mfwvx syndrome). Surgical History She has a past surgical history that includes Cardiac catheterization. Social History She reports that she has never smoked. She has never used smokeless tobacco. No history on file for alcohol use and drug use. Family History Family History Problem Relation Name Age of Onset Supraventricular tachycardia Mother Heart disease Father Supraventricular tachycardia Sister Heart disease Paternal Grandmother Heart disease Paternal Grandfather Allergies Levofloxacin, Meperidine, Oxycodone-acetaminophen, and Propoxyphene n-acetaminophen Medications (Not in a hospital admission) Last Recorded Vitals Physical Examination: Unobtainable INVESTIGATIONS Investigations: 06/16/19 CVL Cardiovascular Laboratory Report FINAL IMPRESSIONS: 1. Angiographically nonobstructive coronary arteries. 2. Normal global left ventricular systolic function by noninvasive imaging. RECOMMENDATIONS/PLAN: 1. Will start the patient on Imdur for suspected coronary spasm and/or esophageal spasm. 2. Will add a proton pump inhibitor for a possible element of gastroesophageal reflux disease. 3. Consider further investigations for alternate etiologies of her chest pain mainly pulmonary, musculoskeletal, and/or gastrointestinal. 4. She will be monitored overnight and discharged in the morning as long as she remains hemodynamically stable. 5. She can follow up with Dr. Ramos in the outpatient setting in the next 2 to 4 weeks. 6. She can follow up with Dr. Pat Huston, her family physician as scheduled. Assessment: Variant Angina - Worsening Palpitations Plan: I discussed Rosie's symptoms and the results of her stress test as well as prior cardiac catheterization. She is on maximum dose Imdur and high doses of calcium channel rob. Given her worsening symptoms, and duration of time since her last cardiac catheterization, a coronary CTA to rule out worsening underlying coronary artery disease would be prudent. If this shows no significant atherosclerotic heart disease, I will refer her to a tertiary care center specializing in vasospastic angina. In the interim, we will provide a prescription for sublingual nitroglycerin to be taken as needed for significant chest pain episodes. Return to clinic in a month or sooner should problems arise Date of phone call: 11/18/2022 No chief complaint on file. Total time spent in Medical Discussion: 6 minutes. Total 6 minutes. The visit was initiated by the patient and conducted [id number] with use of audio-only real time telephone communication between patient and provider for a virtual visit. Verbal consent to provide and bill for this service was obtained on 11/18/2022. Vidhi Ramos MD, MPH, [facility], [facility], [facility] Interventional Cardiology Pager Email: [email or web address] NoteCARDIAC STRESS TEST Requesting Physician: Vidhi Ramos M.D. Procedure Date:11/04/2022 PERFORMING PHYSICIAN: Victorina Velasco M.D. REASON FOR TEST: Chest pain. STRESS TEST TYPE: Treadmill stress test with nuclear myocardial perfusion imaging. RESTING EKG: Normal sinus rhythm. PROTOCOL: Flo. RESTING HEART RATE: 61 PEAK HEART RATE: 153 PEAK MAXIMAL HEART RATE PERCENTAGE: 87 RESTING BLOOD PRESSURE: 128/90 PEAK BLOOD PRESSURE: 160/88 EXERCISE TIME: 9 minutes and 15 seconds STAGE REACHED: 4 MAX METS: 10.10 REASON FOR TERMINATION: Fatigue. HEART RATE RECOVERY: Normal. CHRONOTROPIC RESPONSE INDEX: Normal. FUNCTIONAL CAPACITY: Good. BLOOD PRESSURE RESPONSE: Normal. ST CHANGES: Patient noted to have [address] depression in leads 2, 3, AVF. These resolved during recovery. SYMPTOMS: Patient had chest pain, 2-3/10, mid sternal 2 minutes into recovery. This resolved completely by the end of recovery. ARRHYTHMIAS: None. CONCLUSION: 1. Patient exercised for 9 minutes and 15 seconds. She reached stage 4 on Flo protocol. Her maximum METS were 10.10. 2. Patient's Pandya Treadmill Score is +0.1. This portents a medium risk of angiographic coronary artery disease, and a 95% survival at 5 years. 3. Patient was noted to have EKG changes concerning for ischemia in inferior leads. These changes resolved during recovery. 4. Patient was noted to have chest pain several minutes into recovery, which resolved by the end of recovery. 5. Given EKG changes and symptomatology, exercise portion of stress test is concerning for ischemia. 6. Nuclear myocardial perfusion imaging will be interpreted and reported in a separate document. Please refer to that document for further information. 7. Clinical correlation is recommended.[facility] [id number] Note [facility] Cardiology Clinic Note Chief Complaint: Patient here for 2.5 year follow up. Says her chest pain and palpitations have worsened over the past month or so. Recently got and under a lot of stress. Had labs in May 2022. HPI: Elvia Gutiérrez is a 47 y.o. 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 Neurological: Positive for headaches and light-headedness. All other systems reviewed and are negative. Past Medical History She has no past medical history on file. Surgical History She has no past surgical history on file. Social History She reports that she has never smoked. She has never used smokeless tobacco. No history on file for alcohol use and drug use. Family History Family History Problem Relation Name Age of Onset Supraventricular tachycardia Mother Heart disease Father Supraventricular tachycardia Sister Heart disease Paternal Grandmother Heart disease Paternal Grandfather Allergies Levofloxacin, Meperidine, Oxycodone-acetaminophen, and Propoxyphene n-acetaminophen Medications (Not in a hospital admission) Last Recorded Vitals BP 122/82 (BP Location: Left arm, Patient Position: Sitting) Pulse 82 Ht 1.676 m (5' 6 ) Wt 91.6 kg (202 lb) SpO2 98% BMI 32.60 kg/m??? Physical Examination: GENERAL: alert and oriented x3, well developed, in no acute distress. HEAD: atraumatic, normocephalic. EYES: ROMAN, EOMI. NECK: trachea midline, no JVD present, no carotid bruits present. CARDIAC: S1, S2 present. RRR. No murmur, rubs, or gallops. RESPIRATORY: CTAB, no increased effort of breathing, no rales, rhonchi, or wheezing. ABDOMEN: soft, nontender, nondistended. EXTREMITIES: no lower extremity edema, peripheral pulses are 2+ bilaterally. No rash/skin discoloration present. NEURO: strength/sensation equal and symmetric in bilateral upper and lower extremities. PSYCH: appropriate mood, affect, and judgement. INVESTIGATIONS Investigations: 06/16/19 CVL Cardiovascular Laboratory Report FINAL IMPRESSIONS: 1. Angiographically nonobstructive coronary arteries. 2. Normal global left ventricular systolic function by noninvasive imaging. RECOMMENDATIONS/PLAN: 1. Will start the patient on Imdur for suspected coronary spasm and/or esophageal spasm. 2. Will add a proton pump inhibitor for a possible element of gastroesophageal reflux disease. 3. Consider further investigations for alternate etiologies of her chest pain mainly pulmonary, musculoskeletal, and/or gastrointestinal. 4. She will be monitored overnight and discharged in the morning as long as she remains hemodynamically stable. 5. She can follow up with Dr. Ramos in the outpatient setting in the next 2 to 4 weeks. 6. She can follow up with Dr. Pat Huston, her family physician as scheduled. Assessment: Variant Angina - Worsening Palpitations Plan: It has been 3 years since her last stress test; we will schedule for a treadmill Cardiolite stress test to rule out occult ischemia Will increase Cardizem to 320 mg daily and continue Imdur Will consider referral to a specialized center for vasospastic angina if these measures do not improve her symptoms Return to clinic in a month or sooner should problems arise Vidhi Ramos MD, MPH, [facility], [facility], [facility] Interventional Cardiology Pager Email: [email or web address] noteNo InformationNort [employer] Other Evaluation noteNo assessment information available [facility] Work Phone: Hismssn general Narrative - Reported* Type Description Date Medical History Major depression, recurrent, chr onic Medical History Major depression, recurrent, chr onic Medical History Generalized anxiety disorder Medical History Depression Medical History Depression Medical History prinzmetal angina Medical History h/o DVT Medical History ARTHRITIS Medical History HYPERCHOLESTEROLEMIA Medical History THYROID DISEASE Medical History HYPERLIPIDEMIA Medical History JEFF PARKINSON WHITE SYNDROME Medical History CERVICAL DISORDER Surgical History arthroscopy twice-2006,2008; rh inoplasty Surgical History lap-hystoscopy, d&c 2015 Surgical History hysterectomy Surgical History bone marrow donation 2013 Hospitalization History see above [place] [employer] Other Hiszdnm general Narrative - Reported* Type Description Date Medical History Major depression, recurrent, chr onic Medical History Major depression, recurrent, chr onic Medical History Generalized anxiety disorder Medical History Depression Medical History Depression Medical History prinzmetal angina Medical History h/o DVT Medical History ARTHRITIS Medical History HYPERCHOLESTEROLEMIA Medical History THYROID DISEASE Medical History HYPERLIPIDEMIA Medical History JEFF PARKINSON WHITE SYNDROME Medical History CERVICAL DISORDER Surgical History Problem Title : Bone Marrow Transplant, Problem Status : Active, Surgical History Problem Title : Hysterectomy, P roblem Status : Active, Surgical History Problem Title : Knee arthroscopy, Problem Status : Active, Surgical History Problem Title : Lapa roscopy, Problem Comment : D&C, Hysteroscopy, Problem Status : Active, Attribute Title : [Insert Date into Details], Surgical History Problem Title : [place] roscopy, Problem Comment : D&C, Hysteroscopy, Problem Status : Active, Attribute Title : Outpatient, Surgical History Problem Title : NON JOCKEY VALET SURGERIES: Right knee arthroscopy, Problem Status : Inactive, Surgical History Problem Title : past surgical history reviewed, Problem Description : past surgical history reviewed, Problem Comment : reviewed - no changes required, Problem Status : Active, Surgical History Problem Title : Righ t knee arthroscopy, Problem Status : Active, Surgical History Problem Title : surg ical procedures, hx of, Problem Description : surgical procedures, hx of, Problem Comment : Right Knee Arthroscopy Rhinoplasty Hysterectomy ( has ovaries) 2017 [facility] Bone marrow donor to sister, Problem Status : Active, Surgical History Problem Title : surg ical procedures, hx of, Problem Description : surgical procedures, hx of, Problem Comment : Right Knee Arthroscopy Rhinoplasty, Problem Status : Active, Surgical History Problem Title : Tubal Ligation, Problem Status : Active, Hospitalization History see above [employer] Other Summary Purpose Family History No Family History Records FoundNo Family History Records FoundNo Family History Records FoundNo Family History Records Found Advance Directives No Advanced Directives Records Found Advance Directive Response Recorded Date/ Time Advance Directives No August 9:55am Hospital Course Note MR#: [id number] [facility] Pt. Name: Elvia Gutiérrez Admitted: 06/16/2019 Discharged: 06/17/2019 Date of : 1975 Physician: Alessandro Garrido MD DISCHARGE SUMMARY PRIMARY DIAGNOSES: 1. Typical chest pain with abnormal stress test. Post heart catheterization, which demonstrated no significant coronary artery stenosis. 2. Major depressive disorder. 3. Lower end of normal T4 with normal TSH. 4. Tksnk-Abmuqwawr-Xdaxe. HOSPITAL COURSE: The patient is a 43-year-old female, who presented with abnormal stress tests, transferred to our facility for cardiac catheterization. She was not having any pain on admission. Cath was done and Cardiology was consulted. Her catheterization was clean and they recommended the patient starting Imdur with Protonix. They state is likely coronary spasms. The patient did develop a significant headache after starting Imdur and therefore, they stopped and started amlodipine instead. She was given some Compazine and Benadryl fo (more content not included)... Chief Complaint and Reason for Visit Chief Complaint r92.8 Additional Source Comments INFORMATION SOURCE (unrecogn ized section and content) DATE CREATED AUTHOR 09/18/2019 [facility] DATE CREATED AUTHOR AUTHOR'S ORGANIZ ATION 03/07/2023 [facility] DATE CREATED AUTHOR AUTHOR'S ORGANIZ ATION 07/19/2023 [facility] DATE CREATED AUTHOR AUTHOR'S ORGANIZ ATION 10/14/2023 [facility] REASON FOR VISIT (unrecogniz ed section and content) labsordermammabnormal mammme ssagebreast MRI Care Teams (unrecognized sec tion and content) Team Status: Active Member Role Status Dates Pat Huston MD Primary Care Provider Active Team Status: Inactive Member Role Status Dates Pat Huston MD Primary Care Provider, Attending Agnes macdonald Active Goals (unrecognized section and content) Goals may be documented in a n alternate section FOR RECORDS PERTAINING TO PATIENTS WHO ARE OR HAVE BEEN ENROLLED IN A CHEMICAL DEPENDENCY/SUBSTANCEABUSE PROGRAM, SOME INFORMATION MAY BE OMITTED. This clinical summary was aggregated from multiple sources. Caution should be exercised in using it in the provision of clinical care. This summary normalizes information from multiple sources, and as a consequence, information in this document may materially change the coding, format and clinical context of patient data. In addition, data may be omitted in some cases. CLINICAL DECISIONS SHOULD BE BASED ON THE PRIMARY CLINICAL RECORDS. [facility]. provides no warranty or guarantee of the accuracy or completeness of information in this document.
--- NOTE | 2024-01-03 08:05 | CA_ITS ---
Patient Name: ELVIA GUTIÉRREZ MR#: [id number] : 1975 Exam Date: 01/03/2024 Ordering Doctor: DR CECILIA ANDERSON M.D. ECHOCARDIOGRAM REPORT PROCEDURE: CA ECHO DOPPLER COMPLETE INDICATIONS: Dyspnea COMPARISON: None. DESCRIPTION: COMPLETE ECHOCARDIOGRAM Real-time transthoracic echocardiography with 2D, M-mode, spectral and color flow Doppler performed. QUALITY: Technical quality was good. LEFT VENTRICLE: Normal chamber size. Normal left ventricular wall thickness. LV EF: Global left ventricular systolic function is normal. Calculated left ventricular ejection fraction is 62%. No significant wall motion abnormalities. DIASTOLIC: Normal diastolic function. ATRIAL SEPTUM: Agitated saline contrast reveals an intra-cardiac shunt suggestive of a patent foramen ovale. LEFT ATRIUM: Normal chamber size. RIGHT ATRIUM: Normal chamber size. A prominent Eustachian valve (normal variant) is seen. RIGHT VENTRICLE: Normal chamber size. Normal right ventricular systolic function. TRICUSPID VALVE: Normal mobility and thickness. Mild regurgitation. No evidence of pulmonary hypertension. RVSP 27mmHg MITRAL VALVE: Normal mobility and thickness. No evidence of mitral valve stenosis. There is no mitral annular calcification. Trivial mitral regurgitation. AORTIC VALVE: Normal trileaflet appearance. No visible sclerosis. Normal leaflet mobility. No evidence of aortic valve stenosis. Trivial aortic regurgitation. AORTIC ROOT: Normal diameter and appearance. PULMONIC VALVE: Normal thickness and mobility. No stenosis. Trivial regurgitation. PERICARDIUM: No evidence of pericardial effusion. IVC: Collapses with inspirations. Normal size. CONCLUSION: 1. Global ventricular systolic function is normal; visually estimated ejection fraction is 60 to 65% 2. Normal right ventricular size and systolic function 3. Normal diastolic function 4. Mild tricuspid regurgitation 5. Normal right ventricular systolic pressure 6. Agitated saline contrast reveals an intracardiac shunt suggestive of patent foramen ovale Adult Echocardiography Procedure Report Left Ventricle LVEDD (3.7 - 5.6 cm): 3.79 cm LVESD (2.2 - 4.0 cm): 2.52 cm LVIVS thickness (0.6 - 1.2 cm): 1.06 cm LVPW thickness (0.5 - 1.0 cm): 0.88 cm e': 0.13 m/s E - e': 4.48 LVOT Max Gradient: 4.53 mm[Hg] LVOT Area (cm2): 1.06 m/s Peak Velocity (LVOT): 1.06 m/s Mean Velocity (LVOT): 0.73 m/s LVOT Diameter 1.87 cm Left Ventricular Ejection Fraction: 62.20 % Left Atrium LA Volume Index (2D A2C): 33.36 ml/m2 Left Atrium Systolic Dimension: 3.50 cm Mitral Valve MV E to A Ratio: 1.12 MV Max Gradient: MV Mean Gradient: Mitral Valve A-Wave Peak Velocity: 0.52 m/s Mitral Valve E-Wave Peak Velocity: 0.58 m/s Cardiovascular Orifice Area: Right Ventricle RV Internal Diastolic Dimension: 3.68 cm Aorta AO Root Diam: 2.56 cm Ascending Ao Diam: 2.33 cm Aortic Valve AoV Area (Peak Migue): 1.95 cm2, 1.95 cm2 AoV Area (VTI): 1.89 cm2, 1.89 cm2 Deceleration [place]: Pressure Half-Time: Peak Velocity(Antegrade Flow): 1.50 m/s Peak Gradient(Antegrade Flow): 8.95 mm[Hg] Mean Velocity(Antegrade Flow): 1.05 m/s Mean Gradient(Antegrade Flow): 5.12 mm[Hg] Velocity Time Integral: 31.68 cm Tricuspid Valve Peak Velocity (Regurgitant Flow): 2.37 m/s, 2.34 m/s, 2.22 m/s Peak Velocity: Pulmonic Valve Mean Gradient: 1.96 mm[Hg], 2.83 mm[Hg] Mean Velocity: 0.65 m/s, 0.80 m/s Peak Velocity: 1.00 m/s Peak Gradient: 2.93 mm[Hg], 5.30 mm[Hg] Right Atrium Right Atrium Systolic Pressure: 60.70 ml, 60.70 ml Dictated by: Cecilia Anderson M.D. on 01/03/2024 at 12:57 Approved by: Cecilia Anderson M.D. on 01/03/2024 at 13:03
== END 2024-01-03 07:04 | disposition home or self-care (01) ==
LOC: CARD 07:03
PROVIDERS: PCP Family Medicine; Visit Provider Internal Medicine Interventional Cardiology
DX: R06.09 Other forms of dyspnea (principal)
CPT/HCPCS: 93306

== ENCOUNTER 2024-03-16 15:46 | Outpatient (OUT) | payer BC, SELFPAY ==
--- NOTE | 2024-03-16 15:48 | MR_ITS ---
The [address] [address] Patient Name: ELVIA GUTIÉRREZ MRN: [id number] date: 1975 Sex: F Assigned Patient Location: MRI Current Patient Location: MRI Accession/Order Number: [id number] Exam Date: 03/16/2024 16:00 Report Date: 03/16/2024 17:04 At the request of: HARLAN PETTY Procedure: MR head/brain wo/w con MR head/brain wo/w con, 03/16/2024 4:00 PM EDT INDICATION: subsequent imaging, abnormal MRI COMPARISON: Prior MRI of the head dated 01/27/2023 and 08/06/2023 TECHNIQUE: Multiplanar, multisequential MRI images of brain were obtained without and with injection of contrast. FINDINGS: The cerebral sulci as well as ventricular system are appropriate for age. Stable mild cerebellar tonsil ectopia is noted. There is no restricted diffusion. Hyperintensities on T2 and FLAIR images in the kathryn and left frontal and parietal salazar radiata with sparing of U fibers are unchanged. No new lesion. No abnormal enhancing lesion. There is no intracranial mass, mass effect, midline shift, intra or extra-axial fluid collection or large hemorrhage. Normal flow-void in the intracranial vessels is noted. The visualized portions of orbits, mastoid air cells as well as paranasal sinuses are unremarkable. MR/MR head/brain wo/w con IMPRESSION: No acute intracranial process is noted. No significant interval change in the white matter changes in the kathryn and the salazar radiata of the left frontal and parietal lobes. Statistically these lesions are most likely consistent with microvascular ischemic changes. However, traumatic brain injury, demyelinating process or vasculitis are in differential diagnosis. Electronically authenticated by: ZANE KESSLER Date: 03/16/2024 17:04
--- OUTSIDE RECORDS SUMMARY | 2024-03-16 16:06 | XMS_ITS | CCD ---
Author Organization [facility] Care Team Providers Care Deck Scaler Name Role Phone ALESSANDRO GARRIDO Admitting Unavailable ALESSANDRO GARRIDO Attending Unavailable PAT HUSTON Referring Unavailable ROBEL, PAT Primary Care Unavailable Pat Huston Unavailable ROBEL, DR PAT Kumari Admitting Unavailable HUSTON, DR PAT Kumari Attending Unavailable HUSTON, DR PAT Kumari Primary Care Unavailable LIVINGSTON, DR NILESH Foy Consulting Unavailable HUSTON, DR [...] Unavailable ZIEBER, DR EDILSON Basilio Consulting Unavailable MD Pat Huston Primary Care Provider [phone] MD Pat Huston Attending Provider Pat Huston Admitting Unavailable Pat Huston Primary Care Unavailable Pat Huston Attending Unavailable Kevon Samuel Admitting Unavailab Kevon Morejon Attending Unavailab Pat Mcgovern Primary Care Unavailable ELTAHAWY, EHAB Attending Unavailable [place], EHAB Attending Unavailable [place]WN[place], EHAB Attending Unavailable [place], EHAB Attending Unavailable HARLAN PETTY Attending Unavailable Allergies Allergy Classification Reported Allergen(s) Allergy Type Date of Onset Reaction(s) Facility (2 sources) Acetaminophen / oxyCODONE Drug Allergy 07-30-20 14 [facility] Repository (8 sources) levoFLOXacin Drug Allergy 10-11-20 16 hives [facility] (2 sources) Meperidine Drug Allergy 07-30-20 14 [facility] (2 sources) Darvocet-N 100 Drug allergy (disorder) 07-30-20 14 [facility] (6 sources) Acetaminophen / oxyCODONE Drug Allergy Unknown [facility] Other (6 sources) Acetaminophen / Propoxyphene Drug Allergy Unknown [facility] Other (8 sources) Meperidine; Translations: [MEPERIDINE] Drug Allergy 12-15-19 14 Unknown, [facility] (6 sources) Simvastatin Drug Allergy Unknown [facility] Other (1 source) Tylenol-Codeine #3 Drug allergy (disorder) [facility] Rep[facility] (5 sources) Allergies Reconciled Propensity to adverse reactions Unknown [facility] Other (5 sources) patient allergy list reviewed by nurse or physicia Propensity to adverse reactions 06-21-20 19 Comment:Done [facility] Other (5 sources) Darvocet A500 *ANALGESICS - OPIOID* Propensity to adverse reactions 10-27-19 17 Unknown [facility] Other (2 sources) Acetaminophen; Translations: [acetaminophen] Drug Allergy 09-07-20 [facility] (3 sources) levoFLOXacin; Translations: [levofloxacin] Drug Allergy 08-21-20 Hives [facility] (2 sources) oxyCODONE; Translations: [oxycodone] Drug Allergy 09-07-20 Vomiting [facility] (2 sources) Propoxyphene; Translations: [propoxyphene] Drug Allergy 09-07-20 [facility] (1 source) Meperidine Drug Allergy 09-07-20 [facility] Repository (1 source) Acetaminophen / oxyCODONE; Translations: [OXYCODONE-ACETAM INOPHEN] Drug Allergy 12-15-19 14 [facility] (1 source) PROPOXYPHENE N-ACETAMINOPHEN; Translations: [PROPOXYPHENE N-ACETAMINOPHEN] Propensity to adverse reactions to drug (disorder) 12-15-19 14 [facility] Rep[facility] Medications Current Medications Medication Drug Class(es) Dates Sig (Normalized) Sig (Original) buPROPion hydrochloride 100 mg oral tablet (17 sources) Aminoketone Start: 06-25-2022 buPROPion HCl 100MG BuPROPion HCl( 100MG Oral 2 times daily ) Active -Hx Entry Oral 2 times daily for 0 *Pick strength-form from [employer] for eRX* Jun, Active take 1 tablet [...] times daily for 0 *Pick strength-form from [employer] for eRX* Jun, Active dilTIAZem malate 240 mg oral tablet (11 sources) Calcium Channel Rob Start: 06-26-2022 take 240 mg by mouth once daily Cardizem CD 240MG Cardizem CD( 240MG Oral daily ) Active -Hx Entry Oral daily for 0 *Pick strength-form from [employer] for eRX* Jun, Active take 2 tablets by mo uth every twenty-four hours Cardizem 120 MG 2 [...] -Hx Entry Oral for 0 *Reorder from [employer] for eRx and Interaction Alerts* Jun, Active take 1 tablet by thomas th once daily in the morning Imdur 60 MG 1 tablet in the morning Orally Once a day 120 mg Active Problems Active Problems Problem Classification Problem Date Documented Date Episodic/Chronic Anxiety disorders (6 sources) Generalized anxiety disorder; Translations: [Generalized anxiety disorder] Chronic Cardiac dysrhythmias (2 sources) Palpitations; Translations: [Palpitations] Onset: 12-22-2023 Episodic Conduction disorders (5 sources) Pre-excitation syndrome; 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] Onset: 06-20-2018 Chronic Coronary atherosclerosis and other heart disease (2 sources) 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; Translations: [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] Onset: 12-22-2023 Chronic Disorders of lipid metabolism (9 sources) [...] disorder, recurrent, moderate] Chronic Nonspecific chest pain (16 sources) Non-cardiac chest pain; Translations: [Other chest pain] Onset: 11-04-2022 Episodic Open wounds of head; neck; and trunk (5 sources) Laceration of genitalia; Translations: [Laceration without foreign body of vagina and vulva, initial encounter] Episodic Other aftercare (1 source) Encounter for follow-up examination after completed treatment for conditions other than malignant neoplasm; Translations: [Encntr for f/u exam aft trtmt for cond oth than malarlene neoplm] Episodic Other aftercare (4 sources) History [...] sources) Dilated pupil; 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 Other lower respiratory disease (2 sources) Other forms of dyspnea; Translations: [Other forms of dyspnea] Onset: 12-22-2023 Episodic Other non-traumatic joint disorders (1 source) Pain [...] body structures; 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] Onset: 02-16-2023 Chronic Other screening [...] Test Name Value Interpretation Reference Range Facility Office Visiton 02-21-2024 Follow-up visit [id number] Elvia Gutiérrez 1975 Date Provider Department Center 02/21/2024 VIDHI ECHEVARRIA Family History Problem Relation Age of Onset Supraventricular tachycardia Mother Heart disease Father Supraventricular tachycardia Sister Heart disease Paternal Grandmother Heart disease Paternal Grandfather Family Status - Relation Status Age at Mother Father Sister Paternal Grandmother Paternal Grandfather Level of Service:02787 [place] OFFICE/OUTPATIENT ESTABLISHED LOW MDM 20 MIN Normal [facility] 36on 01-11-2024 36 Regarding echo w/ bubbles performed on 01/03/2024: MD Maria Dolores Polanco MA Please reassure Elvia that her echo was normal apart from the probable patent foramen ovale This should not be the reason for her shortness of breath, given the normal RVSP. However, if no other explanations are found, I may recommend a IBRAHIMA to make sure this is a small atrial septal defect. Thank you Patient made aware. Normal [facility] Office Visiton 12-22-2023 Follow-up visit [id number] Elvia Gutiérrez 1975 F Date Provider Department Center 12/22/2023 VIDHI ECHEVARRIA Family History Problem Relation Age of Onset Supraventricular tachycardia Mother Heart disease Father Supraventricular tachycardia Sister Heart disease Paternal Grandmother Heart disease Paternal Grandfather Family Status - Relation Status Age at Mother Father Sister Paternal Grandmother Paternal Grandfather Level of Service:69357 [place] OFFICE/OUTPATIENT ESTABLISHED HIGH MDM 40 MIN Normal [facility] MR breast BI wo/w con CADon 09-07-2023 MR breast BI wo/w con CAD [facility] [address] [place], [place] [id number] MRI Report Signed Patient: Elvia Gutiérrez MR#: [id number] : 1975 Acct:[id number] Age/Sex: 48 / F ADM Date: 09/07/23 Loc: MR Room: Type: [facility] Attending Dr: Pat Huston MD Copies to: [...] All imaged data was reviewed using the [employer] system. The postcontrast images were subtracted and [...] 6M Impression dictated by: Bunny Waite Jr., D.O.09/07/2023 11:47 AM Dictation Location: [place] [address] Transcribed By: [facility] 09/07/23 1147 Dictated By: Bunny Waite Jr, DO 09/07/23 1138 Signed By: 09/07/23 1147 [facility] Orders Onlyon 07-14-2023 Orders Only [id number] Elvia Gutiérrez 1975 Date Provider Department Center 07/14/2023 RENE ROMAN Family History Problem Relation Age of Onset Supraventricular tachycardia Mother Heart disease Father Supraventricular tachycardia Sister Heart disease Paternal Grandmother Heart disease Paternal Grandfather Family Status - Relation Status Age at Mother Father Sister Paternal Grandmother Paternal Grandfather Normal [facility] Office Visiton 06-14-2023 Follow-up visit [id number] Elvia Gutiérrez 1975 F Date Provider Department Center 06/14/2023 VIDHI ECHEVARRIA Family History Problem Relation Age of Onset Supraventricular tachycardia Mother Heart disease Father Supraventricular tachycardia Sister Heart disease Paternal Grandmother Heart disease Paternal Grandfather Family Status - Relation Status Age at Mother Father Sister Paternal Grandmother Paternal Grandfather Level of Service:68887 [place] OFFICE/OUTPATIENT ESTABLISHED LOW MDM 20-29 MIN [facility] Office Visiton 03-16-2023 Follow-up visit [id number] Elvia Gutiérrez 1975 Date Provider Department Center 03/16/2023 VIDHI ECHEVARRIA Family History Problem Relation Age of Onset Supraventricular tachycardia Mother Heart disease Father Supraventricular tachycardia Sister Heart disease Paternal Grandmother Heart disease Paternal Grandfather Family Status - Relation Status Age at Mother Father Sister Paternal Grandmother Paternal Grandfather Level of Service:41598 [place] OFFICE/OUTPATIENT ESTABLISHED MOD MDM 30-39 MIN [facility] Orders Onlyon 03-16-2023 Orders Only [id number] Elvia Gutiérrez 1975 F Date Provider Department Center 03/16/2023 RENE ROMAN Family History Problem Relation Age of Onset Supraventricular tachycardia Mother Heart disease Father Supraventricular tachycardia Sister Heart disease Paternal Grandmother Heart disease Paternal Grandfather Family Status - Relation Status Age at Mother Father Sister Paternal Grandmother Paternal Grandfather Normal [facility] MRI BRAIN WO W CONon 023 MRI BRAIN WO W CON EXAMINATION: [...] EDILSON FERGUSON Date: 2023-02-16 10:16 Normal [facility] LIPID PROFILEon 02-11-2023 CHOL-HDL RATIO NORM SEE BELOW Normal [facility] Comment on above: Result Comment: 3.3 - 4.4 LOW RISK 4.4 - 7.1 AVERAGE RISK 7.1 - 11.0 MODERATE RISK >11.0 HIGH RISK Performed By: #### C MP, TSH, LIPID #### [facility] [address] [place], [place] [address] Dr. David Zapata Cholesterol [Mass/Vol] 120 mg/dL Normal <=200 [facility] Comment on above: Performed By: #### C MP, TSH, LIPID #### [facility] [address] [place], [place] [address] Dr. David Zapata Cholesterol in HDL [Mass/Vol] 54 mg/dL Normal 40-60 [facility] Comment on above: Performed By: #### C MP, TSH, LIPID #### [facility] [address] [place] [address] [address] David Zapata Cholesterol in LDL [Mass/Vol] 45.6 mg/dL Normal [facility] Comment on above: Performed By: #### C MP, TSH, LIPID #### [facility] [address] [place] [address] [address] David Zapata Cholesterol.total/Ch olesterol in HDL [Mass ratio] 2.2 {ratio} Normal [facility] Comment on above: Performed By: #### C MP, TSH, LIPID #### [facility] [address] [place] [address] [address] David Zapata HDL NORMAL > or = 60 mg/dl - LO W CARDIOVASCULAR RISK <40 mg/dl - HIGH CARDIOVASCULAR RISK Normal [facility] Comment on above: Performed By: #### C MP, TSH, LIPID #### [facility] [address] [place] [address] Dr. David Zapata LDL CALC NORMAL SEE BELOW Normal [facility] Comment on above: Result Comment: <100 mg/dl OPTIMAL 100 - 129 mg/dl NEAR OR ABOVE OPTIMAL 130 - 159 mg/dl BORDERLINE HIGH 160 - 189 mg/dl HIGH >190 mg/dl VERY HIGH Performed By: #### C MP, TSH, LIPID #### [facility] [address] [place] [address] [address] David Zapata Triglyceride [Mass/Vol] 102 mg/dL Normal <=150 [facility] Comment on above: Performed By: #### C MP, TSH, LIPID #### [facility] [address] [place] [address] Dr. David Zapata VLDL CALC 20.4 mg/dL Normal [facility] Comment on above: Performed By: #### C MP, TSH, LIPID #### [facility] [address] [place] [address] [address] David Zapata LIVER PROFILEon 02-11-2023 Albumin [Mass/Vol] 3.4 g/dL Normal 3.4-5.0 [facility] Comment on above: Performed By: #### C MP, TSH, LIPID #### [facility] [address] [place] [address] [address] David Zapata Albumin/Globulin [Mass ratio] 1.0 {ratio} Normal [facility] Comment on above: Performed By: #### C MP, TSH, LIPID #### [facility] [address] [place] [address] [address] David Zapata ALP [Catalytic activity/Vol] 51 U/L Normal 46-116 [facility] Comment on above: Performed By: #### C MP, TSH, LIPID #### [facility] [address] [place] [address] [address] David Zapata ALT [Catalytic activity/Vol] 32 U/L Normal 14-59 [facility] Comment on above: Performed By: #### C MP, TSH, LIPID #### [facility] [address] [place] [address] [address] David Zapata AST [Catalytic activity/Vol] 18 U/L Normal 15-37 [facility] Comment on above: Performed By: #### C MP, TSH, LIPID #### [facility] [address] [place] [address] [address] David Zapata BILI, CONJUGATED 0.1 mg/dL Normal 0.0-0.2 [facility] Comment on above: Performed By: #### C MP, TSH, LIPID #### [facility] [address] [place] [address] [address] David Zapata Bilirubin [Mass/Vol] 0.4 mg/dL Normal 0.2-1.0 [facility] Comment on above: Performed By: #### C MP, TSH, LIPID #### [facility] [address] [place] [address] [address] David Zapata Globulin (S) [Mass/Vol] 3.5 g/dL Normal [facility] Comment on above: Performed By: #### C MP, TSH, LIPID #### [facility] [address] [place] [address] [address] David Zapata Protein [Mass/Vol] 6.9 g/dL Normal 6.4-8.2 [facility] Comment on above: Performed By: #### C MP, TSH, LIPID #### [facility] [address] [place] [address] [address] David Zapata CBC AUTO DIFFon 11-18-2022 BASO # 0.0 103/ul Normal 0.0-0.1 [facility] Comment on above: Performed By: #### C BC #### [facility] [address] [place] [address] [address] David Zapata Basophils/100 WBC (Bld) 0.4 % Normal 0.2-2.0 [facility] Comment on above: Performed By: #### C BC #### [facility] [address] [place] [address] [address] David Zapata EO # 0.3 103/ul Normal 0.0-0.7 [facility] Comment on above: Performed By: #### C BC #### [facility] [address] [place] [address] [address] David Zapata Eosinophils/100 WBC (Bld) 3.4 % Normal 0.9-7.0 [facility] Comment on above: Performed By: #### C BC #### [facility] [address] [place] [address] [address] David Zapata Erythrocyte distribution width (RBC) [Ratio] 12.0 % Normal 11.0-15.0 [facility] Comment on above: Performed By: #### C BC #### [facility] [address] [place] [address] [address] David Zapata Hematocrit (Bld) [Volume fraction] 44.2 % Normal 36.0-48.0 [facility] Comment on above: Performed By: #### C BC #### [facility] [address] [place] [address] [address] David Zapata Hemoglobin (Bld) [Mass/Vol] 14.0 g/dL Normal 12.0-16.0 [facility] Comment on above: Performed By: #### C BC #### [facility] [address] [place] [address] [address] David Zapata IG # 0.04 10e3/ul Critically high 0.00-0.03 [facility] Comment on above: Performed By: #### C BC #### [facility] [address] [place] [address] Dr. David Zapata IG % 0.5 % Normal 0.0-0.5 [facility] Comment on above: Performed By: #### C BC #### [facility] [address] [place] [address] Dr. David Zapata LYMPH # 2.3 103/ul Normal 1.2-3.8 [facility] Comment on above: Performed By: #### C BC #### [facility] [address] [place] [address] Dr. David Zapata Lymphocytes/100 WBC (Bld) 28.7 % Normal 20.5-60.0 [facility] Comment on above: Performed By: #### C BC #### [facility] [address] [place] [address] Dr. David Zapata MANUAL DIFF REQ NO Normal [facility] Comment on above: Performed By: #### C BC #### [facility] [address] [place] [address] Dr. David Zapata MCH (RBC) [Entitic mass] 29.2 pg Normal 26.7-34.0 [facility] Comment on above: Performed By: #### C BC #### [facility] [address] [place] [address] Dr. Davdi Zapata MCHC (RBC) [Mass/Vol] 31.7 g/dL Normal 29.9-35.2 [facility] Comment on above: Performed By: #### C BC #### [facility] [address] [place] [address] Dr. David Zapata MCV (RBC) [Entitic vol] 92.1 fL Normal 81.0-99.0 [facility] Comment on above: Performed By: #### C BC #### [facility] [address] [place] [address] Dr. David Zapata MONO # 0.6 103/ul Normal 0.3-0.8 [facility] Comment on above: Performed By: #### C BC #### [facility] [address] [place] [address] Dr. David Zapata Monocytes/100 WBC (Bld) 7.3 % Normal 1.7-12.0 [facility] Comment on above: Performed By: #### C BC #### [facility] [address] [place] [address] [address] David Zapata NEUT # 4.8 103/ul Normal 1.4-6.5 [facility] Comment on above: Performed By: #### C BC #### [facility] [address] [place] [address] Dr. David Zapata Neutrophils/100 WBC (Bld) 59.7 % Normal 43.0-75.0 [facility] Comment on above: Performed By: #### C BC #### [facility] [address] [place] [address] Dr. David Zapata Platelet mean volume (Bld) [Entitic vol] 9.4 fL Critically low 9.5-13.5 [facility] Comment on above: Performed By: #### C BC #### [facility] [address] [place] [address] Dr. David Zapata PLT 308 103/ul Normal 150-450 [facility] Comment on above: Performed By: #### C BC #### [facility] [address] [place] [address] Dr. David Zapata RBC 4.80 106/ul Normal 4.20-5.40 [facility] Comment on above: Performed By: #### C BC #### [facility] [address] [place] [address] Dr. David Zapata WBC 8.0 103/ul Normal 4.0-11.0 [facility] Comment on above: Performed By: #### C BC #### [facility] [address] [place] [address] Dr. David Zapata LIPID PROFILEon 11-18-2022 CHOL-HDL RATIO NORM SEE BELOW Normal [facility] Comment on above: Result Comment: 3.3 - 4.4 LOW RISK 4.4 - 7.1 AVERAGE RISK 7.1 - 11.0 MODERATE RISK >11.0 HIGH RISK Performed By: #### C MP, TSH, LIPID #### [facility] [address] [place] [address] [address] David Zapata Cholesterol [Mass/Vol] 203 mg/dL Critically high <=200 [facility] Comment on above: Performed By: #### C MP, TSH, LIPID #### [facility] [address] [place] [address] [address] David Zapata Cholesterol in HDL [Mass/Vol] 57 mg/dL Normal 40-60 [facility] Comment on above: Performed By: #### C MP, TSH, LIPID #### [facility] [address] [place] [address] [address] David Zapata Cholesterol in LDL [Mass/Vol] 120.4 mg/dL Normal [facility] Comment on above: Performed By: #### C MP, TSH, LIPID #### [facility] [address] [place] [address] Dr. David Zapata Cholesterol.total/Ch olesterol in HDL [Mass ratio] 3.6 {ratio} Normal [facility] Comment on above: Performed By: #### C MP, TSH, LIPID #### [facility] [address] [place] [address] [address] David Zapata HDL NORMAL > or = 60 mg/dl - LO W CARDIOVASCULAR RISK <40 mg/dl - HIGH CARDIOVASCULAR RISK Normal [facility] Comment on above: Performed By: #### C MP, TSH, LIPID #### [facility] [address] [place] [address] [address] David Zapata LDL CALC NORMAL SEE BELOW Normal [facility] Comment on above: Result Comment: <100 mg/dl OPTIMAL 100 - 129 mg/dl NEAR OR ABOVE OPTIMAL 130 - 159 mg/dl BORDERLINE HIGH 160 - 189 mg/dl HIGH >190 mg/dl VERY HIGH Performed By: #### C MP, TSH, LIPID #### [facility] [address] [place] [address] [address] David Zapata Triglyceride [Mass/Vol] 128 mg/dL Normal <=150 [facility] Comment on above: Performed By: #### C MP, TSH, LIPID #### [facility] [address] [place] [address] [address] David Zapata VLDL CALC 25.6 mg/dL Normal [facility] Comment on above: Performed By: #### C MP, TSH, LIPID #### [facility] [address] [place] [address] [address] David Zapata PROF 14(COMP METB)on 023 Albumin [Mass/Vol] 3.5 g/dL Normal 3.4-5.0 [facility] Comment on above: Performed By: #### C MP, TSH, LIPID #### [facility] [address] [place] [address] [address] David Zapata Albumin/Globulin [Mass ratio] 1.0 {ratio} Normal [facility] Comment on above: Performed By: #### C MP, TSH, LIPID #### [facility] [address] [place] [address] [address] David Zapata ALP [Catalytic activity/Vol] 68 U/L Normal 46-116 [facility] Comment on above: Performed By: #### C MP, TSH, LIPID #### [facility] [address] [place] [address] Dr. David Zapata ALT [Catalytic activity/Vol] 28 U/L Normal 14-59 [facility] Comment on above: Performed By: #### C MP, TSH, LIPID #### [facility] [address] [place] [address] [address] David Zapata Anion gap [Moles/Vol] 11.3 mmol/L Normal [facility] Comment on above: Performed By: #### C MP, TSH, LIPID #### [facility] [address] [place] [address] [address] David Zapata AST [Catalytic activity/Vol] 18 U/L Normal 15-37 [facility] Comment on above: Performed By: #### C MP, TSH, LIPID #### [facility] [address] [place] [address] Dr. David Zapata Bilirubin [Mass/Vol] 0.4 mg/dL Normal 0.2-1.0 [facility] Comment on above: Performed By: #### C MP, TSH, LIPID #### [facility] [address] [place] [address] [address] David Zapata Calcium [Mass/Vol] 8.8 mg/dL Normal 8.5-10.1 [facility] Comment on above: Performed By: #### C MP, TSH, LIPID #### [facility] [address] [address] [address] David Zapata Chloride [Moles/Vol] 103 mmol/L Normal 98-107 [facility] Comment on above: Performed By: #### C MP, TSH, LIPID #### [facility] [address] [address] [address] David Zapata CO2 [Moles/Vol] 28.4 mmol/L Normal 21.0-32.0 [facility] Comment on above: Performed By: #### C MP, TSH, LIPID #### [facility] [address] [place] [address] Dr. David Zapata Creatinine [Mass/Vol] 0.96 mg/dL Normal 0.55-1.02 [facility] Comment on above: Performed By: #### C MP, TSH, LIPID #### [facility] [address] [place] [address] Dr. David Zapata EGFR-AF GUATEMALAN >60 Normal >=60 [facility] Comment on above: Performed By: #### C MP, TSH, LIPID #### [facility] [address] [place] [address] Dr. aDvid Zapata EGFR-NON AF GUATEMALAN >60 Normal >=60 [facility] Comment on above: Performed By: #### C MP, TSH, LIPID #### [facility] [address] [address] [address] David Zapata Globulin (S) [Mass/Vol] 3.5 g/dL Normal [facility] Comment on above: Performed By: #### C MP, TSH, LIPID #### [facility] [address] [address] [address] David Zapata Glucose [Mass/Vol] 94 mg/dL Normal 74-106 [facility] Comment on above: Performed By: #### C MP, TSH, LIPID #### [facility] [address] [place] [address] Dr. David Zapata Potassium [Moles/Vol] 3.7 mmol/L Normal 3.5-5.1 [facility] Comment on above: Performed By: #### C MP, TSH, LIPID #### [facility] [address] [place] [address] Dr. David Zapata Protein [Mass/Vol] 7.0 g/dL Normal 6.4-8.2 [facility] Comment on above: Performed By: #### C MP, TSH, LIPID #### [facility] [address] [place] [address] Dr. David Zapata Sodium [Moles/Vol] 139 mmol/L Normal 136-145 [facility] Comment on above: Performed By: #### C MP, TSH, LIPID #### [facility] [address] [place] [address] Dr. David Zapata Urea nitrogen [Mass/Vol] 8.0 mg/dL Normal 7.0-18.0 [facility] Comment on above: Performed By: #### C MP, TSH, LIPID #### [facility] [address] [place] [address] Dr. David Zapata Urea nitrogen/Creatinine [Mass ratio] 8.3 mg/mg Normal [facility] Comment on above: Performed By: #### C MP, TSH, LIPID #### [facility] [address] [place] [address] Dr. David Zapata TSHon 11-18-2022 TSH 1.557 uIU/mL Normal 0.358-3.740 [facility] Comment on above: Performed By: #### C MP, TSH, LIPID #### [facility] [address] [place] [address] Dr. David Zapata VITAMIN B12on 11-18-2022 Cobalamin (Vitamin B12) [Mass/Vol] 247.0 pg/mL Normal 193.0-986.0 [facility] Comment on above: Performed By: #### V ITB12 #### [facility] [address] [address] [address] David Zapata NM STRESS/REST MULTIon 11-04 NM STRESS/REST MULTI Patient: ELVIA GUTIÉRREZ Exam Date: 11/04/2022 : 1975 Gender:F Ordering : DR VIDHI ANDERSON M.D. Admission #: [id number] Family : Order #: [id number] CLICK HERE TO VIEW EXAM RADIOLOGY REPORT [...] Ferguson M.D. on 11/05/2022 at 11:01 Normal [facility] MAMM SCREEN 3D AMANUEL CADon 07-10-2022 MG MAMM SCREEN 3D AMANUEL CAD Patient: ELVIA GUTIÉRREZ Exam Date: 07/10/2022 : 1975 Gender:F Ordering : DR PAT HUSTON M.D. Admission #: [id number] Family : Order #: [id number] CLICK HERE TO VIEW EXAM RADIOLOGY REPORT [...] Treatments None Family Cancers None LOCATION: [facility] BREAST COMPOSITION: Heterogeneously dense,which may obscure small [...] Deutsch MD on 07/10/2022 at 08:04 Normal [facility] CBC AUTO DIFFon 06-24-2022 BASO # 0.0 103/ul Normal 0.0-0.1 [facility] Comment on above: Performed By: #### C BC #### [facility] [address] [place] [address] Dr. David Zapata Basophils/100 WBC (Bld) 0.5 % Normal 0.2-2.0 [facility] Comment on above: Performed By: #### C BC #### [facility] [address] [place] [address] Dr. David Zapata EO # 0.3 103/ul Normal 0.0-0.7 [facility] Comment on above: Performed By: #### C BC #### [facility] [address] [place] [address] Dr. David Zapata Eosinophils/100 WBC (Bld) 3.4 % Normal 0.9-7.0 [facility] Comment on above: Performed By: #### C BC #### [facility] [address] [place] [address] Dr. David Zapata Erythrocyte distribution width (RBC) [Ratio] 12.1 % Normal 11.0-15.0 [facility] Comment on above: Performed By: #### C BC #### [facility] [address] [place] [address] Dr. David Zapata Hematocrit (Bld) [Volume fraction] 40.6 % Normal 36.0-48.0 [facility] Comment on above: Performed By: #### C BC #### [facility] [address] [place] [address] Dr. David Zapata Hemoglobin (Bld) [Mass/Vol] 13.5 g/dL Normal 12.0-16.0 [facility] Comment on above: Performed By: #### C BC #### [facility] [address] [place] [address] Dr. David Zapata IG # 0.03 10e3/ul Normal 0.00-0.03 [facility] Comment on above: Performed By: #### C BC #### [facility] [address] [place] [address] Dr. David Zapata IG % 0.4 % Normal 0.0-0.5 [facility] Comment on above: Performed By: #### C BC #### [facility] [address] [place] [address] Dr. David Zapata LYMPH # 2.1 103/ul Normal 1.2-3.8 [facility] Comment on above: Performed By: #### C BC #### [facility] [address] [place] [address] Dr. David Zapata Lymphocytes/100 WBC (Bld) 28.6 % Normal 20.5-60.0 [facility] Comment on above: Performed By: #### C BC #### [facility] [address] [place] [address] Dr. David Zapata MANUAL DIFF REQ NO Normal [facility] Comment on above: Performed By: #### C BC #### [facility] [address] [place] [address] Dr. David Zapata MCH (RBC) [Entitic mass] 29.2 pg Normal 26.7-34.0 [facility] Comment on above: Performed By: #### C BC #### [facility] [address] [place] [address] Dr. David Zapata MCHC (RBC) [Mass/Vol] 33.3 g/dL Normal 29.9-35.2 [facility] Comment on above: Performed By: #### C BC #### [facility] [address] [place] [address] Dr. David Zapata MCV (RBC) [Entitic vol] 87.9 fL Normal 81.0-99.0 [facility] Comment on above: Performed By: #### C BC #### [facility] [address] [place] [address] Dr. David Zapata MONO # 0.6 103/ul Normal 0.3-0.8 [facility] Comment on above: Performed By: #### C BC #### [facility] [address] [place] [address] Dr. David Zapata Monocytes/100 WBC (Bld) 7.9 % Normal 1.7-12.0 [facility] Comment on above: Performed By: #### C BC #### [facility] [address] [place] [address] Dr. David Zapata NEUT # 4.3 103/ul Normal 1.4-6.5 [facility] Comment on above: Performed By: #### C BC #### [facility] [address] [place] [address] Dr. David Zapata Neutrophils/100 WBC (Bld) 59.2 % Normal 43.0-75.0 [facility] Comment on above: Performed By: #### C BC #### [facility] [address] [place] [address] Dr. David Zapata Platelet mean volume (Bld) [Entitic vol] 9.2 fL Critically low 9.5-13.5 [facility] Comment on above: Performed By: #### C BC #### [facility] [address] [address] [address] David Zapata PLT 280 103/ul Normal 150-450 [facility] Comment on above: Performed By: #### C BC #### [facility] [address] [place] [address] Dr. David Zapata RBC 4.62 106/ul Normal 4.20-5.40 [facility] Comment on above: Performed By: #### C BC #### [facility] [address] [address] [address] David Zapata WBC 7.3 103/ul Normal 4.0-11.0 [facility] Comment on above: Performed By: #### C BC #### [facility] [address] [place] [address] Dr. David Zapata GLYCOHEMOGLOBIN A1Con 2021 ADA RECOMMENDATION SEE BELOW Normal [facility] Comment on above: Result Comment: ADA RECOMMENDED LIMIT 4.0 - 6.0 ADA THERAPEUTIC TARGET < 7.0 ACTION SUGGESTED > 7.0 Performed By: #### C MP, TSH, LIPID #### [facility] [address] [place] [address] Dr. David Zapata Glucose [Mass/Vol] 103 mg/dL Normal [facility] Comment on above: Performed By: #### C MP, TSH, LIPID #### [facility] [address] [place] [address] Dr. David Zapata HbA1c (Bld) [Mass fraction] 5.2 % Normal 4.5-6.2 [facility] Comment on above: Performed By: #### C MP, TSH, LIPID #### [facility] [address] [place] [address] Dr. David Zapata LIPID PROFILEon 06-24-2022 CHOL-HDL RATIO NORM SEE BELOW Normal [facility] Comment on above: Result Comment: 3.3 - 4.4 LOW RISK 4.4 - 7.1 AVERAGE RISK 7.1 - 11.0 MODERATE RISK >11.0 HIGH RISK Performed By: #### C MP, TSH, LIPID #### [facility] [address] [place] [address] Dr. David Zapata Cholesterol [Mass/Vol] 217 mg/dL Critically high <=200 [facility] Comment on above: Performed By: #### C MP, TSH, LIPID #### [facility] [address] [address] [address] David Zapata Cholesterol in HDL [Mass/Vol] 50 mg/dL Normal 40-60 [facility] Comment on above: Performed By: #### C MP, TSH, LIPID #### [facility] [address] [address] [address] David Zapata Cholesterol in LDL [Mass/Vol] 137.6 mg/dL Normal [facility] Comment on above: Performed By: #### C MP, TSH, LIPID #### [facility] [address] [address] [address] David Zapata Cholesterol.total/Ch olesterol in HDL [Mass ratio] 4.3 {ratio} Normal [facility] Comment on above: Performed By: #### C MP, TSH, LIPID #### [facility] [address] [address] [address] David Zapata HDL NORMAL > or = 60 mg/dl - LO W CARDIOVASCULAR RISK <40 mg/dl - HIGH CARDIOVASCULAR RISK Normal [facility] Comment on above: Performed By: #### C MP, TSH, LIPID #### [facility] [address] [address] [address] David Zapata LDL CALC NORMAL SEE BELOW Normal [facility] Comment on above: Result Comment: <100 mg/dl OPTIMAL 100 - 129 mg/dl NEAR OR ABOVE OPTIMAL 130 - 159 mg/dl BORDERLINE HIGH 160 - 189 mg/dl HIGH >190 mg/dl VERY HIGH Performed By: #### C MP, TSH, LIPID #### [facility] [address] [address] [address] David Zapata Triglyceride [Mass/Vol] 147 mg/dL Normal <=150 [facility] Comment on above: Performed By: #### C MP, TSH, LIPID #### [facility] [address] [address] [address] David Zapata VLDL CALC 29.4 mg/dL Normal [facility] Comment on above: Performed By: #### C MP, TSH, LIPID #### [facility] [address] [address] [address] David Zapata PROF 14(COMP METB)on 022 Albumin [Mass/Vol] 3.6 g/dL Normal 3.4-5.0 [facility] Comment on above: Performed By: #### C MP, TSH, LIPID #### [facility] [address] [address] [address] David Zapata Albumin/Globulin [Mass ratio] 1.1 {ratio} Normal [facility] Comment on above: Performed By: #### C MP, TSH, LIPID #### [facility] [address] [address] [address] David Zapata ALP [Catalytic activity/Vol] 62 U/L Normal 46-116 [facility] Comment on above: Performed By: #### C MP, TSH, LIPID #### [facility] [address] [address] [address] David Zapata ALT [Catalytic activity/Vol] 21 U/L Normal 14-59 [facility] Comment on above: Performed By: #### C MP, TSH, LIPID #### [facility] [address] [place] [address] Dr. David Zapata Anion gap [Moles/Vol] 12.6 mmol/L Normal [facility] Comment on above: Performed By: #### C MP, TSH, LIPID #### [facility] [address] [address] [address] David Zapata AST [Catalytic activity/Vol] 14 U/L Critically low 15-37 [facility] Comment on above: Performed By: #### C MP, TSH, LIPID #### [facility] [address] [place] [address] Dr. David Zapata Bilirubin [Mass/Vol] 0.6 mg/dL Normal 0.2-1.0 [facility] Comment on above: Performed By: #### C MP, TSH, LIPID #### [facility] [address] [place] [address] Dr. David Zapata Calcium [Mass/Vol] 8.5 mg/dL Normal 8.5-10.1 [facility] Comment on above: Performed By: #### C MP, TSH, LIPID #### [facility] [address] [address] [address] David Zapata Chloride [Moles/Vol] 103 mmol/L Normal 98-107 [facility] Comment on above: Performed By: #### C MP, TSH, LIPID #### [facility] [address] [address] [address] David Zapata CO2 [Moles/Vol] 26.2 mmol/L Normal 21.0-32.0 [facility] Comment on above: Performed By: #### C MP, TSH, LIPID #### [facility] [address] [place] [address] Dr. David Zapata Creatinine [Mass/Vol] 0.94 mg/dL Normal 0.55-1.02 [facility] Comment on above: Performed By: #### C MP, TSH, LIPID #### [facility] [address] [place] [address] Dr. David Zapata EGFR-AF GUATEMALAN >60 Normal >=60 [facility] Comment on above: Performed By: #### C MP, TSH, LIPID #### [facility] [address] [place] [address] Dr. David Zapata EGFR-NON AF GUATEMALAN >60 Normal >=60 [facility] Comment on above: Performed By: #### C MP, TSH, LIPID #### [facility] [address] [address] [address] David Zapata Globulin (S) [Mass/Vol] 3.3 g/dL Normal [facility] Comment on above: Performed By: #### C MP, TSH, LIPID #### [facility] [address] [address] [address] David Zapata Glucose [Mass/Vol] 100 mg/dL Normal 74-106 [facility] Comment on above: Performed By: #### C MP, TSH, LIPID #### [facility] [address] [address] [address] David Zapata Potassium [Moles/Vol] 3.8 mmol/L Normal 3.5-5.1 [facility] Comment on above: Performed By: #### C MP, TSH, LIPID #### [facility] [address] [place] [address] Dr. David Zapata Protein [Mass/Vol] 6.9 g/dL Normal 6.4-8.2 [facility] Comment on above: Performed By: #### C MP, TSH, LIPID #### [facility] [address] [place] [address] Dr. David Zapata Sodium [Moles/Vol] 138 mmol/L Normal 136-145 [facility] Comment on above: Performed By: #### C MP, TSH, LIPID #### [facility] [address] [place] [address] Dr. David Zpaata Urea nitrogen [Mass/Vol] 7.0 mg/dL Normal 7.0-18.0 [facility] Comment on above: Performed By: #### C MP, TSH, LIPID #### [facility] [address] [place] [address] Dr. David Zapata Urea nitrogen/Creatinine [Mass ratio] 7.4 mg/mg Normal [facility] Comment on above: Performed By: #### C MP, TSH, LIPID #### [facility] [address] [place] [address] Dr. David Zapata TSHon 06-24-2022 TSH 1.434 uIU/mL Normal 0.358-3.740 [facility] Comment on above: Performed By: #### C MP, TSH, LIPID #### [facility] [address] [place] [address] Dr. David Zapata MRI BRAIN WO W [...] by: EDILSON FERGUSON Date: 2022-06-10 06:40 Normal [facility] BASIC METABOLIC PANELon 05-26 Calcium [Mass/Vol] 8.6 mg/dL Normal 8.6-10.3 [facility] Comment on above: Order Comment: No: D o not add to previous draw Performed By: #### 5 [id number], [id number] #### [facility] [address] [address], [facility] Chloride [Moles/Vol] 106 mmol/L Normal 98-107 [facility] Comment on above: Order Comment: No: D o not add to previous draw Performed By: #### 5 [id number], [id number] #### [facility] [address] [place] [address], [place] CO2 [Moles/Vol] 24 mmol/L Normal 21-31 [facility] Comment on above: Order Comment: No: D o not add to previous draw Performed By: #### 5 6101, [id number] #### [facility] [address] [place] [address], [place] Creatinine [Mass/Vol] 0.90 mg/dL Normal 0.60-1.20 [facility] Comment on above: Order Comment: No: D o not add to previous draw Performed By: #### 5 610, 03225 #### [facility] [address] [place] [address], [place] GFR/1.73 sq M predicted among blacks MDRD (S/P/Bld) [Vol rate/Area] mL/min/{1.73_m2} Normal >60 [facility] Comment on above: Order Comment: No: D o not add to previous draw Performed By: #### 5 610, [id number] #### [facility] [address] [place] [address], [place] GFR/1.73 sq M predicted among non-blacks MDRD (S/P/Bld) [Vol rate/Area] mL/min/{1.73_m2} Normal >60 [facility] Comment on above: Order Comment: No: D o not add to previous draw Performed By: #### 5 6100, 02349 #### [facility] [address] [place] [address], [place] Glucose [Mass/Vol] 97 mg/dL Normal 70-100 [facility] Comment on above: Order Comment: No: D o not add to previous draw Performed By: #### 5 6100, 57155 #### [facility] [address] [place] [address], [place] Potassium [Moles/Vol] 3.9 mmol/L Normal 3.5-5.1 [facility] Comment on above: Order Comment: No: D o not add to previous draw Performed By: #### 5 610, 90466 #### [facility] [address] [place] [address], [place] Sodium [Moles/Vol] 136 mmol/L Normal 136-145 [facility] Comment on above: Order Comment: No: D o not add to previous draw Performed By: #### 5 610, [id number] #### [facility] [address] Urea nitrogen [Mass/Vol] 11 mg/dL Normal 7-25 [facility] Comment on above: Order Comment: No: D o not add to previous draw Performed By: #### 5 [id number], 79073 #### [facility] [address] [place] [id number], [facility] CBC COMPLETE BLOOD COUNTon 06-17-2019 Erythrocyte distribution width (RBC) [Ratio] 12.0 % Normal 11.5-15.0 [facility] Comment on above: Order Comment: No: D o not add to previous draw Performed By: #### 5 0608 #### [facility] [address] Hematocrit (Bld) [Volume fraction] 42.7 % Normal 36.0-45.0 [facility] Comment on above: Order Comment: No: D o not add to previous draw Performed By: #### 5 0608 #### [facility] [address] [place] [address], [facility] Hemoglobin (Bld) [Mass/Vol] 13.9 g/dL Normal 12.0-15.0 [facility] Comment on above: Order Comment: No: D o not add to previous draw Performed By: #### 5 0608 #### [facility] [address] [place] [address], [facility] MCH (RBC) [Entitic mass] 29.6 pg Normal 27.0-33.0 [facility] Comment on above: Order Comment: No: D o not add to previous draw Performed By: #### 5 0608 #### [facility] [address] [place] [address], [facility] MCHC (RBC) [Mass/Vol] 32.6 g/dL Normal 32.0-35.0 [facility] Comment on above: Order Comment: No: D o not add to previous draw Performed By: #### 5 0608 #### [facility] [address] [place] [address], [facility] MCV (RBC) [Entitic vol] 91.0 fL Normal 82.0-98.0 [facility] Comment on above: Order Comment: No: D o not add to previous draw Performed By: #### 5 0608 #### [facility] [address] [place] [place] [address], [facility] Nucleated RBC/100 WBC (Bld) [Ratio] 0 % Normal 0-0 [facility] Comment on above: Order Comment: No: D o not add to previous draw Performed By: #### 5 0608 #### [facility] [address] [place] [address], [facility] PLAT CNT 233 10*3/uL Normal 150-400 [facility] Comment on above: Order Comment: No: D o not add to previous draw Performed By: #### 5 0608 #### [facility] [address] [place] [address], [facility] RBC (Bld) [#/Vol] 4.69 10*6/uL Normal 3.80-5.00 [facility] Comment on above: Order Comment: No: D o not add to previous draw Performed By: #### 5 0608 #### [facility] [address] [place] [address], [facility] WBC (Bld) [#/Vol] 8.19 10*3/uL Normal 4.00-10.60 [facility] Comment on above: Order Comment: No: D o not add to previous draw Performed By: #### 5 0608 #### [facility] [address] [facility] [place] [address], [facility] Cardiovascular Lab Reporton 06-17-2019 Cardiovascular Lab Report [facility] Patient Name: Ruddy [facility] Alexy MR #: [id number] Department of Physician: Mike Polanco M.D. Division of Service Date: 06/16/2019 Cardiology Birthdate: 1975 Adult Cardiovascular Room #: [id number] [facility] [address] [place] [address] Cardiovascular Laboratory Report FINAL IMPRESSIONS: 1. Angiographically [...] 5. She can follow up with Dr. Anderson in the outpatient setting in the next [...] the left radial artery was obtained. A 6-Tajik glide sheath was inserted without difficulty. Bilateral [...] are outlined above. Electronically Signed by: Vidhi Anderson M.D. 06/21/2019 10:07 A Vidhi Anderson M.D. Date Dict: 06/16/2019/03:28 P/Vidhi Anderson M.D. Date Trans: 06/17/2019 04:09 A/adela [id number] cc: Pat Huston M.D. [address] [place] [address] Amos Vazquez M.D. [address] [id number] Normal [facility] HEMOGLOBIN A1Con 06-17-2019 HbA1c (Bld) [Mass fraction] 4.8 % Normal 4.0-6.0 [facility] Comment on above: Order Comment: Yes: Add to Previous draw if able Performed By: #### 5 7431, 17998 #### [facility] [address] [place] [address], [facility] HbA1c (Bld) [Mass fraction] 91 mg/dL Normal 70-126 [facility] Comment on above: Order Comment: Yes: Add to Previous draw if able Performed By: #### 5 6101, 95411 #### [facility] [address] [place] [address], [facility] LIPID PROFILEon 06-17-2019 Cholesterol [Mass/Vol] 209 mg/dL High 120-200 [facility] Comment on above: Order Comment: Yes: Add to Previous draw if able Result Comment: CHOL ESTEROL REFERENCE RANGE: 20 YEARS AND OLDER CARDIOVASCULAR RISK Less than 200 mg/dl Low Risk 200 to 239 mg/dl Borderline Risk 240 mg/dl and greater High Risk Performed By: #### 1 0070, 28830, 68595, 68293 #### [facility] [address] [place] [address], [facility] Cholesterol in HDL [Mass/Vol] 35 mg/dL Normal 23-92 [facility] Comment on above: Order Comment: Yes: Add to Previous draw if able Result Comment: Slig ht variation in normal range could be due to gender and/or age. HDL CHOLESTEROL REFERENCE RANGE: 20 years and older Cardiovascular Risk > or =60 mg/dL Desirable 40 TO 59 mg/dL Low Risk <40 mg/dL High Risk Performed By: #### 1 0070, 07902, 50194, 48742 #### [facility] [address] [place] [address], [facility] Cholesterol in LDL [Mass/Vol] 139 mg/dL High 0-130 [facility] Comment on above: Order Comment: Yes: Add to Previous draw if able Result Comment: LDL IS A CALCULATION LDL IS ONLY VALID IF THE TRIG IS LESS THAN 400. Performed By: #### 1 0070, 12800, 13301, 01242 #### [facility] [address] [place] [address], [place] Cholesterol.total/Ch olesterol in HDL [Mass ratio] 6.0 {ratio} High 0.0-4.5 [facility] Comment on above: Order Comment: Yes: Add to Previous draw if able Performed By: #### 1 0070, 53601, 40833, 26380 #### [facility] [address] [place] [address], [place] NON-HDL CHOLESTEROL 174 mg/dL Normal [facility] Comment on above: Order Comment: Yes: Add to Previous draw if able Performed By: #### 1 0070, 84717, 29358, 28273 #### [facility] [address] [place] [address], [facility] Triglyceride [Mass/Vol] 174 mg/dL High 40-149 [facility] Comment on above: Order Comment: Yes: Add to Previous draw if able Result Comment: TRIG LYCERIDE REFERENCE RANGE: 20 YEARS AND OLDER CARDIOVASCULAR RISK LESS THAN 150 mg/dl LOW RISK 150 TO 199 mg/dl BORDERLINE RISK 200 mg/dl AND GREATER HIGH RISK Performed By: #### 1 0070, 74981, 14139, 43867 #### [facility] [address] [place] [address], [facility] VLDL CHOL 35 mg/dL Normal 0-40 [facility] Comment on above: Order Comment: Yes: Add to Previous draw if able Performed By: #### 1 0070, 29518, 92871, 56723 #### [facility] [address] MAGNESIUM BLOODon 06-17-2019 Magnesium [Mass/Vol] 2.2 mg/dL Normal 1.9-2.7 [facility] Comment on above: Order Comment: No: D o not add to previous draw Performed By: #### 1 0070, 52506, 88924, 62113 #### [facility] [address] [place] [address], [facility] PHOSPHORUS BLOODon 9 Phosphate [Mass/Vol] 4.3 mg/dL Normal 2.5-5.0 [facility] Comment on above: Order Comment: No: D o not add to previous draw Performed By: #### 5 6101, 76302 #### [facility] [address] [place] [address], [facility] APTTon 06-16-2019 aPTT Coag (Bld) [Time] 27.3 s Normal 25.0-35.0 [facility] Comment on above: Result Comment: ALL RESULTS [...] THIS PURPOSE. Performed By: #### 5 6101, 00633 #### [facility] [address] [place] [address], [facility] BASIC METABOLIC PANELon - Calcium [Mass/Vol] 9.3 mg/dL Normal 8.6-10.3 [facility] Comment on above: Order Comment: No: D o not add to previous draw Performed By: #### 1 0070, 73977, 34194, 61556, 89006 #### [facility] [address] [place] [id number], [facility] Chloride [Moles/Vol] 105 mmol/L Normal 98-107 [facility] Comment on above: Order Comment: No: D o not add to previous draw Performed By: #### 1 0070, 30218, 74725, 31959, 39664 #### [facility] [address] [place] [address], [facility] CO2 [Moles/Vol] 23 mmol/L Normal 21-31 [facility] Comment on above: Order Comment: No: D o not add to previous draw Performed By: #### 1 0070, 06353, 79633, 15633, 23984 #### [facility] [address] [place] [address], [place] Creatinine [Mass/Vol] 0.85 mg/dL Normal 0.60-1.20 [facility] Comment on above: Order Comment: No: D o not add to previous draw Performed By: #### 1 0070, 94295, 83429, 50057, 24345 #### [facility] [address] [place] [address], [place] GFR/1.73 sq M predicted among blacks MDRD (S/P/Bld) [Vol rate/Area] mL/min/{1.73_m2} Normal >60 [facility] Comment on above: Order Comment: No: D o not add to previous draw Performed By: #### 1 0070, 15466, 04481, 71568, 60400 #### [facility] [address] [place] [address], [facility] GFR/1.73 sq M predicted among non-blacks MDRD (S/P/Bld) [Vol rate/Area] mL/min/{1.73_m2} Normal >60 [facility] Comment on above: Order Comment: No: D o not add to previous draw Performed By: #### 1 0070, 47015, 54803, 49677, 53466 #### [facility] [address] [place] [id number], [facility] Glucose [Mass/Vol] 91 mg/dL Normal 70-100 [facility] Comment on above: Order Comment: No: D o not add to previous draw Performed By: #### 1 0070, 23069, 65955, 50390, 77929 #### [facility] [address] [place] [address], [facility] Potassium [Moles/Vol] 3.9 mmol/L Normal 3.5-5.1 [facility] Comment on above: Order Comment: No: D o not add to previous draw Performed By: #### 1 0070, 07537, 78102, 73882, 89054 #### [facility] [address] [place] [address], [place] Sodium [Moles/Vol] 136 mmol/L Normal 136-145 [facility] Comment on above: Order Comment: No: D o not add to previous draw Performed By: #### 1 0070, 34591, 54637, 96763, 02643 #### [facility] [address] Urea nitrogen [Mass/Vol] 10 mg/dL Normal 7-25 [facility] Comment on above: Order Comment: No: D o not add to previous draw Performed By: #### 1 0070, 50006, 05928, 92039, 23911 #### [facility] [address] [place] [id number], [facility] FREE T3on 06-16-2019 Free T3 [Mass/Vol] 2.6 pg/mL Normal 2.5-3.9 [facility] Comment on above: Performed By: #### 1 0070, 25340, 43281, 32283, 09783 #### [facility] [address] [place] [address], [facility] FREE T4on 06-16-2019 Free T4 [Mass/Vol] 0.73 ng/dL Normal 0.71-1.85 [facility] Comment on above: Performed By: #### 1 0070, 68414, 32197, 63815, 60596 #### [facility] [address] [place] [address], [facility] MAGNESIUM BLOODon 06-16-2019 Magnesium [Mass/Vol] 2.2 mg/dL Normal 1.9-2.7 [facility] Comment on above: Order Comment: No: D o not add to previous draw Miss Performed By: #### 1 0070, 12863, 30745, 11608, 09429 #### [facility] [address] [place] [id number], [facility] PROTHROMBIN TIMEon 9 INR Coag (PPP) [Relative time] 1.06 {INR} Normal 0.91-1.16 [facility] Comment on above: Result Comment: ACCC P [...] CHEST 1995;108:231S-246S. Performed By: #### 5 6101, 85453 #### [facility] [address] [facility] [address] PT Coag (PPP) [Time] 13.8 s Normal 12.3-14.8 [facility] Comment on above: Result Comment: ALL RESULTS MUST BE INTERPRETED WITH RESPECT TO BLOOD DRAWING ARTIFACT OR DILUTION ERROR OF ANTICOAGULANT AT THE TIME OF SAMPLING. Performed By: #### 5 6101, 71824 #### [facility] [address] [facility] [address] TSH3on 06-16-2019 TSH 3RD GENERATION 1.94 uIU/mL Normal 0.34-5.60 [facility] Comment on above: Performed By: #### 1 0070, 85253, 93344, 42901, 07766 #### [facility] [address] [facility] Vital Signs Date Time Vital Sign Value Performing Clinician Faci lity 09-07-2023 10:29-0500 Body height 165.1 cm MD Pat Huston Work Phone: [facility] 09-07-2023 10:29-0500 Body weight 97.52 kg MD Pat Huston Work Phone: [facility] Encounters Encounter Date Encounter Type Care Provider Facility Start: 02-28-2024 End: 02-28-2024 ambulatory HARLAN PETTY Not Available Start: 02-21-2024 End: 02-21-2024 ambulatory [facility] Start: 12-22-2023 End: 12-22-2023 ambulatory [facility] Start: 09-07-2023 Telephone encounter Pat Huston [facility] Start: 09-07-2023 End: 09-07-2023 ambulatory Pat Huston Facility:[facility] Start: 09-07-2023 End: 09-07-2023 ambulatory MD Pat Huston Work Phone: [facility] Work Phone: Start: 09-07-2023 End: 09-07-2023 Patient encounter procedure MD Pat Huston Work Phone: [facility] [place] Work Phone: Start: 08-06-2023 End: 08-06-2023 ambulatory Pat Huston Other [facility] Other Start: 08-06-2023 Telephone encounter Pat Huston [facility] Start: 07-27-2023 End: 07-27-2023 ambulatory Pat Huston Other [facility] Other Start: 07-27-2023 Telephone encounter Pat Huston [facility] Start: 07-13-2023 End: 07-13-2023 ambulatory Pat Huston Other [facility] Other Start: 07-13-2023 Telephone encounter Pat Huston [facility] Start: 07-06-2023 End: 07-06-2023 ambulatory Pat Huston Other [facility] Other Start: 07-06-2023 Telephone encounter Pat Huston [facility] Start: 06-14-2023 End: 06-14-2023 ambulatory [facility] Start: 04-22-2023 ambulatory Kevon Serna acility:[facility] Start: 03-16-2023 End: 03-16-2023 [facility] Start: 03-11-[address] VDIHI ANDERSON Facili ty:[facility] Start: 02-16-2023 End: 02-17-[address] JL REAL Facility:[facility] Start: 02-11-2023 End: 02-12-[address] VIDHI ANDERSON Facility:[facility] Start: 11-20-2022 Encounter for genera l adult medical examination without abnormal findings DR PAT HUSTON [facility] Start: 11-19-2022 End: 11-19-2022 ambulatory Pat Huston Other [facility] Other Start: 11-19-2022 Telephone encounter Pat Huston [facility] Start: 11-18-2022 End: 11-19-[address] PAT HUSTON Facility:[facility] Start: 11-18-2022 End: 11-19-2022 Encounter for general adult medical examination without abnormal findings DR PAT HUSTON Facility:[facility] Start: 11-04-2022 End: 11-05-[address] VIDHI ANDERSON Facility:[facility] Start: 07-10-2022 End: 07-11-[address] PAT HUSTON Facility:[facility] Start: 06-26-2022 Adult health examination Vielka Huston Other [facility] Other Start: 06-26-2022 Encounter for genera l adult medical examination without abnormal findings Pat Huston Other [facility] Other Start: 06-24-2022 End: 06-25-[address] PAT HUSTON Facility:[facility] Start: 06-09-2022 End: 06-10-[address] DOCTOR MEDINA Facility:[facility] Start: 06-16-2019 End: 06-17-2019 Patient encounter procedure ALESSANDRO GARRIDO Facility:[facility] Start: 10-27-2016 Gynecological examination normal Pat Huston Other [facility] Other Procedures Date Procedure Procedure Detail Performing Clinician Start: 09-07-2023 MRI of bilateral sasha asts with contrast MD Pat Huston Work Phone: Start: 08-12-2009 visit Pat Huston Other Start: 08-29-2007 Contraception care education Pat Huston Other Screening for malign ant neoplasm of breast Pat Huston Other Viral screening Pat Huston Other Payers Date Payer Category Payer Self-pay [id number] 2022 Unknown [id number] 2019 Unknown [id number] 2. [id number] 1977 Unknown [id number] 2.16.8 [id number] 1975 Unknown [id number] 2.16.84 [id number] 1977 Unknown [id number] 2.16.84 [id number] 1977 Unknown [id number] 2.16.84 [id number] 1977 Unknown [id number] 2.16.84 [id number] 1977 Unknown [id number] 2.16.84 [id number] 1977 Unknown [id number] 2.16.84 0.1.183516.3.579.2.593 1977 Unknown [id number] 2.16.84 0.1.117977.3.579.2.593 1977 Unknown [id number] 2.16.84 [id number] 1977 Unknown [id number] 2.16.84 [id number] 1957 Self-pay [id number] Unknown [id number] Unknown Other1 (STD) [id number] Unknown [id number] 2.16.8 [id number] Unknown [id number] 2.16.8 [id number] Social History Date Type Detail Facility Unknown if ever smoked [facility] Other Sex Assigned At Sex Assigned At Bir th [facility] Other Start: 1975 Sex Assigned At Female F [facility] Clinical Notes 11-04-2022 to 02-21-2024 Note Date & Type Note Facility 02-21-2024 Note [facility] Cardiology Clinic Note Chief Complaint: Patient here for follow up event monitor and bubble study. Still having frequent palpitations and intermittent LANDEROS. Denies chest pain and syncope. HPI: Elvia Gutiérrez is a 48 y.o. 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 She continues to have shortness of breath which is very unusual; this occurs both at rest while she is not doing anything as well as with exertion. She experiences palpitations 2 or 3 times a day; she noticed short runs of fast heartbeat. These last for minutes. She is somewhat lightheaded and dizzy but has no syncope. Pertinently, she has had COVID four times since 2019. UPDATE 02/21/2024 Doing well overall; still has intermittent episodes of shortness of breath and palpitations No chest pain Cardiology ROS: Review of Systems Cardiovascular: Positive for dyspnea on exertion and palpitations. Neurological: Positive for dizziness and light-headedness. All other systems reviewed and are negative. Past Medical History She has a past medical history of Hypertension, Paroxysmal tachycardia (CMS/HCC), Prinzmetal angina (CMS/HCC), and WPW (Ichdd-Ooxkokvjy-Ogxqg syndrome). Surgical History She has a past [...] by mouth once daily as directed., Disp: 90 tablet, Rfl: 3 dilTIAZem CD (Cardizem CD) [...] tablet (120 mg) by mouth in the morning. Do not crush or chew., Disp: 90 tablet, Rfl: 3 metoprolol tartrate (Lopressor) 25 mg tablet, Take 1 tablet (25 mg) by mouth in the morning and at bedtime., Disp: 180 tablet, Rfl: 3 rosuvastatin (Crestor) 40 mg tablet, Take 1 tablet (40 mg) by mouth at bedtime., Disp: 90 tablet, Rfl: 3 nitroglycerin (Nitrostat) 0.4 mg SL tablet, Place 1 tablet (0.4 mg) under the tongue every 5 (five) minutes if needed for chest pain. May repeat dose every 5 minutes for up to 3 doses total., Disp: 50 tablet, Rfl: 0 Last Recorded Vitals BP 100/72 (BP Location: Left arm, Patient Position: Sitting) Pulse 65 Ht 1.676 m (5' 6 ) Wt 97.1 kg (214 lb) SpO2 98% BMI 34.54 kg/m??? Physical Examination: GENERAL: alert and oriented [...] PSYCH: appropriate mood, affect, and judgement. Investigations: Pulmonary function test 04/14/2023: Normal spirometry lung volumes with isolated mild diffusion defect. 70% DLCO appears previous which I recommended this regard. Given the patient's clinical history, the mildly reduced DLCO may be secondary to pulmonary hypertension and/or a right to left shunt associated with PFO or other septal defect. Clinical correlation required. Echocardiogram 01/03/2024: Global left ventricular systolic function is normal; EF 60 to 65%. Normal right ventricular size and systolic function. Normal diastolic function. Mild tricuspid regurgitation. Normal right-sided pressures. Agitated saline reveals an intracardiac shunt suggestive of a patent perez ovale Event monitor; sinus rhythm, sinus tachycardia, infrequent supraventricular and ventricular ectopy each being less than 1%. (more content not included)... [facility] 12-22-2023 Note [facility] Cardiology Clinic Note Chief Complaint: Patient here for 6 mo follow up CAD and hypertension. C/o worsening SOB w/wo exertion- feels like she can't get enough air. Had some palpitations that were pretty frequent a few weeks ago. Still gets them intermittently. Denies chest pain. HPI: Elvia Gutiérrez is a 48 y.o. 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 She continues to have shortness of breath which is very unusual; this occurs both at rest while she is not doing anything as well as with exertion. She experiences palpitations 2 or 3 times a day; she noticed short runs of fast heartbeat. These last for minutes. She is somewhat lightheaded and dizzy but has no syncope. Pertinently, she has had COVID for throwing since 2019. Cardiology ROS: Review of Systems Cardiovascular: Positive for dyspnea on exertion and palpitations. Respiratory: Positive for shortness of breath. Neurological: Positive for dizziness, headaches and light-headedness. All other systems reviewed and are negative. Past Medical History She has a past medical history of Hypertension, Paroxysmal tachycardia (CMS/HCC), Prinzmetal angina (CMS/HCC), and WPW (Dezwz-Mkfmkswxp-Bovoi syndrome). Surgical History She has a past [...] by mouth once daily as directed., Disp: 90 tablet, Rfl: 3 dilTIAZem CD (Cardizem CD) [...] tablet (120 mg) by mouth in the morning. Do not crush or chew., Disp: 90 tablet, Rfl: 3 metoprolol tartrate (Lopressor) 25 mg tablet, Take 1 tablet (25 mg) by mouth in the morning and at bedtime., Disp: 180 tablet, Rfl: 3 nitroglycerin (Nitrostat) 0.4 mg SL tablet, Place 1 tablet (0.4 mg) under the tongue every 5 (five) minutes if needed for chest pain. May repeat dose every 5 minutes for up to 3 doses total., Disp: 50 tablet, Rfl: 0 rosuvastatin (Crestor) 40 mg tablet, Take 1 tablet (40 mg) by mouth at bedtime., Disp: 90 tablet, Rfl: 3 Last Recorded Vitals BP 108/78 (BP Location: Left arm, Patient Position: Sitting) Pulse 66 Ht 1.676 m (5' 6 ) Wt 96.2 kg (212 lb) SpO2 96% BMI 34.22 kg/m??? Physical Examination: GENERAL: alert and oriented [...] extremities. PSYCH: appropriate mood, affect, and judgement. Pulmonary function test 04/14/2023: Normal spirometry lung volumes with isolated mild diffusion defect. 70% DLCO appears previous which I recommended this regard. Given the patient's clinical history, the mildly reduced DLCO may be secondary to pulmonary hypertension and/or a right to left shunt associated with PFO or other septal defect. Clinical correlation required. 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 [facility] 07-27-2023 Evaluation note Encounter Date Diagnosis Assessment Notes Jul, Abnormal mammogram (ICD-10 - R92.8) [facility] Other 09-19-2023 Evaluation note* Encounter Date Diagnosis Assessment Notes Treatment Notes Treatment Clinical Notes Jun, Abnormal mammogram of right breast (ICD-10 - R92.8) [facility] Other 09-12-2023 Evaluation note* Encounter Date Diagnosis Assessment Notes Treatment Notes Treatment Clinical Notes Jun, Screening mammogram for breast cancer (ICD-10 - Z12.31) [facility] [...] tachycardia (CMS/HCC), Prinzmetal angina (CMS/HCC), and WPW (Zwhud-Khnppkrfv-Fazfh syndrome). Surgical History She has a past [...] small secundum atrial sep (more content not included)...[facility] Chief Complaint: [...] tachycardia (CMS/HCC), Prinzmetal angina (CMS/HCC), and WPW (Htwkb-Hizwhqpaj-Wxnkf syndrome). Surgical History She has a past [...] tests plus or minus (more content not included)...[facility]05-09-2023 NotePatient wanted to make you aware of a positive aggitated NSS procedure she had done with neurology. I scanned it into family law mediator for your review. Thanks.[facility]01-11-2023 NoteCARDIAC STRESS TEST Requesting Physician: Vidhi Anderson M.D. Procedure Date:11/04/2022 PERFORMING PHYSICIAN: Victorina Velasco [...] further information. 7. 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 Name: Elvia Gutiérrez Admitted: 06/16/2019 Discharged: 06/17/2019 Date of : 1975 Physician: Alessandro Garrido MD DISCHARGE SUMMARY PRIMARY DIAGNOSES: 1. Typical chest pain with abnormal stress test. Post heart catheterization, which demonstrated no significant coronary artery stenosis. 2. Major depressive disorder. 3. Lower end of normal T4 with normal TSH. 4. Ltssr-Gltxylces-Whoot. HOSPITAL COURSE: The patient is a 43-year-old [...] and content) DATE CREATED AUTHOR 09/18/2019 [facility] DATE CREATED AUTHOR AUTHOR'S ORGANIZ ATION 03/07/2023 [facility] DATE CREATED AUTHOR AUTHOR'S ORGANIZ ATION 10/14/2023 [facility] DATE CREATED AUTHOR AUTHOR'S ORGANIZ ATION 02/21/2024 [facility] DATE CREATED AUTHOR AUTHOR'S ORGANIZ ATION 02/29/2024 [facility] EPIC REASON FOR VISIT (unrecogniz ed section and [...] BE BASED ON THE PRIMARY CLINICAL RECORDS. [employer] [facility] provides no warranty or guarantee of the accuracy or completeness of information in this document.
== END 2024-03-16 15:47 | disposition home or self-care (01) ==
LOC: MRI 15:46
PROVIDERS: PCP Family Medicine; Visit Provider Nurse Practitioner Family
DX: R93.89 Abnormal findings on diagnostic imaging of other specified body structures (principal)
CPT/HCPCS: 70553; A9575

== ENCOUNTER 2024-08-24 07:19 | Outpatient (OUT) | payer BC, SELFPAY ==
--- OUTSIDE RECORDS SUMMARY | 2024-08-24 07:23 | XMS_ITS | CCD ---
Author Organization [facility] Care Team Providers Care Wood Tile Installation Helper Name Role Phone ALESSANDRO GARRIDO Admitting Unavailable ALESSANDRO GARRIDO Attending Unavailable PAT HUSTON Referring Unavailable ROBEL, PAT Primary Care Unavailable Pat Huston Unavailable DR PAT HUSTON Admitting Unavailable HUSTON, DR PAT Kumari Attending Unavailable HUSTON, DR PAT Kumari Primary Care Unavailable [place], DR NILESH Foy Consulting Unavailable HUSTON, DR [...] Unavailable MD Pat Huston Primary Care Provider [phone] MD Pat Huston Attending Provider Pat Huston Admitting Unavailable Pat Huston Primary Care Unavailable Pat Huston Attending Unavailable Kevon Samuel Admitting Unavailab Kevon Morejon Attending Unavailab Pat Mcgovern Primary Care Unavailable HARLAN PETTY Attending Unavailable DALTON OROZCO Attending Unavailable RACHEL, VIDHI Attending Unavailable RACHEL, EHAB Attending Unavailable Allergies Allergy Classification Reported Allergen(s) Allergy Type Date of Onset Reaction(s) Facility (2 sources) Acetaminophen / oxyCODONE Drug Allergy 07-30-20 14 [facility] Repository (8 sources) levoFLOXacin Drug Allergy 10-11-20 16 hives [facility] Rep[facility] (2 sources) Meperidine Drug Allergy 07-30-20 14 [facility] (2 sources) Darvocet-N 100 Drug allergy (disorder) 07-30-20 14 [facility] (6 sources) Acetaminophen / oxyCODONE Drug Allergy Unknown [facility] (6 sources) Acetaminophen / Propoxyphene Drug Allergy Unknown [facility] (9 sources) Meperidine; Translations: [MEPERIDINE] Drug Allergy 12-15-19 14 Unknown, [facility] (7 sources) Simvastatin Drug Allergy 08-23-20 24 Unknown, [facility] (1 source) Tylenol-Codeine #3 Drug allergy (disorder) [facility] (5 sources) Allergies Reconciled Propensity to adverse reactions Unknown [facility] Other (5 sources) patient allergy list reviewed by nurse or physicia Propensity to adverse reactions 06-21-20 19 Comment:Done [facility] Other (5 sources) Darvocet A500 *ANALGESICS - OPIOID* Propensity to adverse reactions 10-27-19 17 Unknown [facility] (2 sources) Acetaminophen; Translations: [acetaminophen] Drug Allergy 09-07-20 23 [facility] (4 sources) levoFLOXacin; Translations: [levofloxacin] Drug Allergy 08-21-20 21 [facility] (3 sources) oxyCODONE; Translations: [oxycodone] Drug Allergy 09-07-20 Vomiting [facility] (3 sources) Propoxyphene; Translations: [propoxyphene] Drug Allergy 09-07-20 Vomiting [facility] (1 source) Meperidine Drug Allergy 09-07-20 [facility] Repository (1 source) Acetaminophen / oxyCODONE; Translations: [OXYCODONE-ACETAM INOPHEN] Drug Allergy 12-15-19 14 [facility] Repository (1 source) PROPOXYPHENE N-ACETAMINOPHEN; Translations: [PROPOXYPHENE N-ACETAMINOPHEN] Propensity to adverse reactions to drug (disorder) 12-15-19 14 [facility] Repository (1 source) Darvocet A500 *ANALGESICS - OP Allergy to substance 08-23-20 Hives [facility] Medications Current Medications Medication Drug Class(es) Dates Sig (Normalized) Sig (Original) buPROPion hydrochloride 100 mg oral tablet (18 sources) Aminoketone Start: 08-23-2024 take 100 mg by mouth twice daily Bupropion Hcl Active 100 MG PO Twice daily August 23, 2024 12:00am Start: 06-25-2022 buPROPion HCl 100MG BuPROPion HCl( 100MG Oral 2 times daily ) Active -Hx Entry Oral 2 times daily for 0 *Pick strength-form from I AM AT for eRX* Jun, Active take 1 tablet by thomas th once daily in the morning buPROPion HCl ER (XL) 300 MG Take 1 tablet by mouth every morning for 90 Active citalopram 20 mg oral tablet (6 sources) Serotonin Reuptake Inhibitor Start: 08-23-2024 Citalopram Active MG PO August 23, 2024 12:00am FreeTextSig: Citalopram Hydrobromide( 20MG Oral 2 times daily ) Active -Hx Entry Oral 2 times daily; Note: Source Status: Taking*Pick strength-form from GetMeMediaan for eRX*; Provider: Robel Stewart ( ) Start: 06-25-2022 Citalopram Hyd robromide 20MG Citalopram Hydrobromide( 20MG Oral 2 times daily ) Active -Hx Entry Oral 2 times daily for 0 *Pick strength-form from I AM AT for eRX* Jun, Active dilTIAZem hydrochloride 120 mg oral tablet (14 sources) Calcium Channel Rob Start: 08-23-2024 take 2 tablets by mouth once daily Diltiazem Hcl Active 120 MG PO Daily August 23, 2024 11:19am FreeTextSi tablets Orally daily; Note: Source Status: Takingtotal of 240 mg; Provider: Robel Stewart ( ) Start: 08-23-2024 End: 08-23-2024 take 1 capsule by mouth once daily, then take 1 capsule by mouth every twenty-four hours Diltiazem Hcl (Cardizem Cd) 240 mg capsule,extended release 24hr Discontinued 240 MG PO Daily August 23, 2024 12:00am August 23, 2024 11:19am Start: 08-23-2024 End: 08-23-2024 take 2 tablets by mouth once daily Diltiazem Hcl Discontinued 2 TAB PO Daily August 23, 2024 12:00am August 23, 2024 11:20am FreeTextSi tablets Orally daily; Note: Source Status: Takingtotal of 240 mg; Provider: Robel Stewart ( ) Start: 06-26-2022 take 240 mg by mouth once ric y Cardizem CD 240MG Cardizem CD( 240MG Oral daily ) Active -Hx Entry Oral daily for 0 *Pick strength-form from I AM AT for eRX* Jun, Active take 2 tablets by [facility] every twenty-four hours Cardizem 120 MG 2 tablets Orally daily total of 240 mg Active DULoxetine 30 mg delayed release oral capsule (14 sources) Serotonin and Norepinephrine Reuptake Inhibitor Start: 08-23-2024 End: 08-23-2024 take 1 capsule by mouth once daily Duloxetine (Cymbalta) 30 mg capsule,delayed release(DR/EC) Active 30 MG PO Daily August 23, 2024 12:00am take 1 capsule by mouth once rudy ly DULoxetine HCl 30 MG Take 1 capsule by mouth every day for 90 Active 24 hr isosorbide mononitrate 120 mg extended release oral tablet (13 sources) Nitrate Vasodilator Start: 08-23-2024 take 120 mg by mouth once daily Isosorbide Mononitrate Active 120 MG PO Daily August 23, 2024 12:00am Start: 08-23-2024 End: 08-23-2024 take 1 tablet by mouth once daily in the morning Isosorbide Mononitrate Discontinued 1 TAB PO Daily August 23, 2024 12:00am August 23, 2024 11:20am FreeTextSi tablet in the morning Orally Once a day; Note: Source Status: [id number] mg; Provider: Robel Stewart ( ) Start: 06-26-2022 Imdur 120MG Im dur( 120MG Oral ) Active -Hx Entry Oral for 0 *Reorder from I AM AT for eRx and Interaction Alerts* Jun, Active [...] disease (2 sources) Atherosclerotic heart disease of [place] coronary artery without angina pectoris; Translations: [Atherosclerotic heart disease of [place] coronary artery without angina pectoris] Onset: 02-21-2024 Chronic Disorders of lipid metabolism (9 sources) Hyperlipidemia, unspecified; Translations: [Hyperlipidemia] Onset: 06-20-2018 Chronic Fever of unknown origin (5 sources) [...] left hip] Episodic Other non-traumatic joint disorders (1 source) Hip pain; Translations: [Pain in right hip] 08-23-2024 Episodic Other non-traumatic joint disorders (1 source) Pain in right hip; Translations: [Pain in joint, pelvic region and thigh] 08-23-2024 Episodic Other nutritional; endocrine; and metabolic disorders [...] agents; Translations: [Contact dermatitis] Onset: 06-21-2019 Episodic Cardiac dysrhythmias (2 sources) Palpitations; Translations: [Palpitations] Onset: 04-11-2024 Episodic Malaise and fatigue (1 source) Other [...] acid dehydrogenase (LDH)] Onset: 06-21-2019 Episodic Other lower respiratory disease (2 sources) Other forms of dyspnea; Translations: [Other forms of dyspnea] Onset: 12-22-2023 Episodic Other non-traumatic joint disorders (5 sources) [...] Test Name Value Interpretation Reference Range Facility 36on 07-25-2024 36 Patient made aware. Normal [facility] 36on 07-24-2024 36 Patient stopped by t he office today. Says she was out of hydrochlorothiazide for 2 days and gained 8#. She did lose those 8# once she restarted it. She wants to know if this is normal and she wonders how much water weight is really on her. Any advice? Thanks. Normal [facility] Office Visiton 04-11-2024 Follow-up visit [id number] Aga Gutiérrez cca 1975 F Date Provider Department Center 04/11/2024 DALTON SANDOVAL BEATA Desai [facility] Family History Problem Relation Age of Onset Supraventricular tachycardia Mother Heart disease Father Supraventricular tachycardia Sister Heart disease Paternal Grandmother Heart disease Paternal Grandfather Family Status - Relation Status Age at Mother Father Sister Paternal Grandmother Paternal Grandfather Level of Service:06605 MA OFFICE/OUTPATIENT NEW MODERATE MDM 45 MINUTES Normal [facility] Office Visiton 02-21-2024 Follow-up visit [id number] Aga Gutiérrez cca 1975 F Date Provider Department Center 02/21/2024 VIDHI ECHEVARRIA BEATA [facility] Family History Problem Relation Age of Onset Supraventricular tachycardia Mother Heart disease Father Supraventricular tachycardia Sister Heart disease Paternal Grandmother Heart disease Paternal Grandfather Family Status - Relation Status Age at Mother Father Sister Paternal Grandmother Paternal Grandfather Level of Service:11568 MA OFFICE/OUTPATIENT ESTABLISHED LOW MDM 20 MIN Normal [facility] 36on 01-11-2024 36 Regarding echo w/ [...] defect. Thank you Patient made aware. Normal [facility] Office Visiton 12-22-2023 Follow-up visit [id number] Aga Gutiérrez cca 1975 F Date Provider Department Center 12/22/2023 VIDHI ECHEVARRIA BEATA [facility] Family History Problem Relation Age of Onset Supraventricular tachycardia Mother Heart disease Father Supraventricular tachycardia Sister Heart disease Paternal Grandmother Heart disease Paternal Grandfather Family Status - Relation Status Age at Mother Father Sister Paternal Grandmother Paternal Grandfather Level of Service:83626 MA OFFICE/OUTPATIENT ESTABLISHED HIGH MDM 40 MIN Normal [facility] MR breast BI wo/w con CADon 09-07-2023 MR breast BI wo/w con [place] [address] MRI Report Signed Patient: Elvia Gutiérrez MR#: [id number] : 1975 Acct:[id number] Age/Sex: 48 / F ADM Date: 09/07/23 Loc: MR Room: Type: [facility] Attending Dr: Pat Huston MD Copies to: [...] All imaged data was reviewed using the Meshify system. The postcontrast images were subtracted and [...] Waite Jr., D.O.09/07/2023 11:47 AM Dictation Location: [place] [address] Transcribed By: [facility] 09/07/23 1147 Dictated By: Bunny Waite Jr, DO 09/07/23 1138 Signed By: 09/07/23 1147 [facility] MRI BRAIN WO W CONon 04-25-2 023 MRI BRAIN WO W CON EXAMINATION: MRI BRA IN WO W CON, MRA HEAD WO CON [...] by: EDILSON FERGUSON Date: 2023-02-16 10:16 Normal [facility] LIPID PROFILEon 02-11-2023 CHOL-HDL RATIO NORM SEE BELOW Normal [facility] Comment on above: Result Comment: 3.3 - 4.4 LOW RISK 4.4 - 7.1 AVERAGE RISK 7.1 - 11.0 MODERATE RISK >11.0 HIGH RISK Performed By: #### C MP, TSH, LIPID #### [facility] [address] [place] [address] [address] David Zapata Cholesterol [Mass/Vol] 120 mg/dL Normal <=200 [facility] Comment on above: Performed By: #### C MP, TSH, LIPID #### [facility] [address] [place] [address] [address] David Zapata Cholesterol in HDL [Mass/Vol] 54 mg/dL Normal 40-60 [facility] Comment on above: Performed By: #### C MP, TSH, LIPID #### [facility] [address] [address] [address] David Zapata Cholesterol in LDL [Mass/Vol] 45.6 mg/dL Normal [facility] Comment on above: Performed By: #### C MP, TSH, LIPID #### [facility] [address] [address] [address] David Zapata Cholesterol.total/C holesterol in HDL [Mass ratio] 2.2 {ratio} Normal [facility] Comment on above: Performed By: #### C MP, TSH, LIPID #### [facility] [address] [address] [address] David Zapata HDL NORMAL > or = 60 mg/dl - LO W CARDIOVASCULAR RISK <40 mg/dl - HIGH CARDIOVASCULAR RISK Normal [facility] Comment on above: Performed By: #### C MP, TSH, LIPID #### [facility] [address] [address] [address] David Zapata LDL CALC NORMAL SEE BELOW Normal [facility] Comment on above: Result Comment: <100 mg/dl OPTIMAL 100 - 129 mg/dl NEAR OR ABOVE OPTIMAL 130 - 159 mg/dl BORDERLINE HIGH 160 - 189 mg/dl HIGH >190 mg/dl VERY HIGH Performed By: #### C MP, TSH, LIPID #### [facility] [address] [address] [address] David Zapata Triglyceride [Mass/Vol] 102 mg/dL Normal <=150 [facility] Comment on above: Performed By: #### C MP, TSH, LIPID #### [facility] [address] [address] [address] David Zapata VLDL CALC 20.4 mg/dL Normal [facility] Comment on above: Performed By: #### C MP, TSH, LIPID #### [facility] [address] [address] [address] David Zapata LIVER PROFILEon 02-11-2023 Albumin [Mass/Vol] 3.4 g/dL Normal 3.4-5.0 [facility] Comment on above: Performed By: #### C MP, TSH, LIPID #### [facility] [address] [address] [address] David Zapata Albumin/Globulin [Mass ratio] 1.0 {ratio} Normal [facility] Comment on above: Performed By: #### C MP, TSH, LIPID #### [facility] [address] [address] [address] David Zapata ALP [Catalytic activity/Vol] 51 U/L Normal 46-116 [facility] Comment on above: Performed By: #### C MP, TSH, LIPID #### [facility] [address] [address] [address] David Zapata ALT [Catalytic activity/Vol] 32 U/L Normal 14-59 [facility] Comment on above: Performed By: #### C MP, TSH, LIPID #### [facility] [address] [place] [address] Dr. David Zapata AST [Catalytic activity/Vol] 18 U/L Normal 15-37 [facility] Comment on above: Performed By: #### C MP, TSH, LIPID #### [facility] [address] [place] [address] Dr. David Zapata BILI, CONJUGATED 0.1 mg/dL Normal 0.0-0.2 [facility] Comment on above: Performed By: #### C MP, TSH, LIPID #### [facility] [address] [place] [address] Dr. David Zapata Bilirubin [Mass/Vol] 0.4 mg/dL Normal 0.2-1.0 [facility] Comment on above: Performed By: #### C MP, TSH, LIPID #### [facility] [address] [place] [address] Dr. David Zapata Globulin (S) [Mass/Vol] 3.5 g/dL Normal [facility] Comment on above: Performed By: #### C MP, TSH, LIPID #### [facility] [address] [place] [address] Dr. David Zapata Protein [Mass/Vol] 6.9 g/dL Normal 6.4-8.2 [facility] Comment on above: Performed By: #### C MP, TSH, LIPID #### [facility] [address] [place] [address] Dr. David Zapata CBC AUTO DIFFon 11-18-2022 BASO # 0.0 103/ul Normal 0.0-0.1 [facility] Comment on above: Performed By: #### C BC #### [facility] [address] [place] [address] Dr. David Zapata Basophils/100 WBC (Bld) 0.4 % Normal 0.2-2.0 [facility] Comment on above: Performed By: #### C BC #### [facility] [address] [place] [address] Dr. David Zapata EO # 0.3 103/ul Normal 0.0-0.7 [facility] Comment on above: Performed By: #### C BC #### [facility] [address] [place] [address] Dr. David Zapata Eosinophils/100 WBC (Bld) 3.4 % Normal 0.9-7.0 [facility] Comment on above: Performed By: #### C BC #### [facility] [address] [place] [address] Dr. David Zapata Erythrocyte distribution width (RBC) [Ratio] 12.0 % Normal 11.0-15.0 [facility] Comment on above: Performed By: #### C BC #### [facility] [address] [place] [address] Dr. David Zapata Hematocrit (Bld) [Volume fraction] 44.2 % Normal 36.0-48.0 [facility] Comment on above: Performed By: #### C BC #### [facility] [address] [place] [address] Dr. David Zapata Hemoglobin (Bld) [Mass/Vol] 14.0 g/dL Normal 12.0-16.0 [facility] Comment on above: Performed By: #### C BC #### [facility] [address] [place] [address] Dr. David Zapata IG # 0.04 10e3/ul Critically high 0.00-0.03 [facility] Comment on above: Performed By: #### C BC #### [facility] [address] [place] [address] Dr. David Zapata IG % 0.5 % Normal 0.0-0.5 [facility] Comment on above: Performed By: #### C BC #### [facility] [address] [place] [address] Dr. David Zapata LYMPH # 2.3 103/ul Normal 1.2-3.8 [facility] Comment on above: Performed By: #### C BC #### [facility] [address] [place] [address] Dr. David Zapata Lymphocytes/100 WBC (Bld) 28.7 % Normal 20.5-60.0 [facility] Comment on above: Performed By: #### C BC #### [facility] [address] [place] [address] Dr. David Zapata MANUAL DIFF REQ NO Normal [facility] Comment on above: Performed By: #### C BC #### [facility] [address] [place] [address] Dr. David Zapata MCH (RBC) [Entitic mass] 29.2 pg Normal 26.7-34.0 [facility] Comment on above: Performed By: #### C BC #### [facility] [address] [place] [address] Dr. David Zapata MCHC (RBC) [Mass/Vol] 31.7 g/dL Normal 29.9-35.2 [facility] Comment on above: Performed By: #### C BC #### [facility] [address] [place] [address] Dr. David Zapata MCV (RBC) [Entitic vol] 92.1 fL Normal 81.0-99.0 [facility] Comment on above: Performed By: #### C BC #### [facility] [address] [place] [address] Dr. David Zapata MONO # 0.6 103/ul Normal 0.3-0.8 [facility] Comment on above: Performed By: #### C BC #### [facility] [address] [place] [address] Dr. David Zapata Monocytes/100 WBC (Bld) 7.3 % Normal 1.7-12.0 [facility] Comment on above: Performed By: #### C BC #### [facility] [address] [place] [address] Dr. David Zapata NEUT # 4.8 103/ul Normal 1.4-6.5 [facility] Comment on above: Performed By: #### C BC #### [facility] [address] [place] [address] Dr. David Zapata Neutrophils/100 WBC (Bld) 59.7 % Normal 43.0-75.0 [facility] Comment on above: Performed By: #### C BC #### [facility] [address] [place] [address] Dr. David Zapata Platelet mean volume (Bld) [Entitic vol] 9.4 fL Critically low 9.5-13.5 [facility] Comment on above: Performed By: #### C BC #### [facility] [address] [place] [address] Dr. David Zapata PLT 308 103/ul Normal 150-450 [facility] Comment on above: Performed By: #### C BC #### [facility] [address] [place] [address] Dr. David Zapata RBC 4.80 106/ul Normal 4.20-5.40 [facility] Comment on above: Performed By: #### C BC #### [facility] [address] [place] [address] Dr. David Zapata WBC 8.0 103/ul Normal 4.0-11.0 [facility] Comment on above: Performed By: #### C BC #### [facility] [address] [place] [address] Dr. David Zapata LIPID PROFILEon 11-18-2022 CHOL-HDL RATIO NORM SEE BELOW Normal [facility] Comment on above: Result Comment: 3.3 - 4.4 LOW RISK 4.4 - 7.1 AVERAGE RISK 7.1 - 11.0 MODERATE RISK >11.0 HIGH RISK Performed By: #### C MP, TSH, LIPID #### [facility] [address] [place] [address] Dr. David Zapata Cholesterol [Mass/Vol] 203 mg/dL Critically high <=200 [facility] Comment on above: Performed By: #### C MP, TSH, LIPID #### [facility] [address] [place] [address] Dr. David Zapata Cholesterol in HDL [Mass/Vol] 57 mg/dL Normal 40-60 [facility] Comment on above: Performed By: #### C MP, TSH, LIPID #### [facility] [address] [place] [address] Dr. David Zapata Cholesterol in LDL [Mass/Vol] 120.4 mg/dL Normal [facility] Comment on above: Performed By: #### C MP, TSH, LIPID #### [facility] [address] [address] [address] David Zapata Cholesterol.total/C holesterol in HDL [Mass ratio] 3.6 {ratio} Normal [facility] Comment on above: Performed By: #### C MP, TSH, LIPID #### [facility] [address] [address] [address] David Zapata HDL NORMAL > or = 60 mg/dl - LO W CARDIOVASCULAR RISK <40 mg/dl - HIGH CARDIOVASCULAR RISK Normal [facility] Comment on above: Performed By: #### C MP, TSH, LIPID #### [facility] [address] [place] [address] Dr. David Zapata LDL CALC NORMAL SEE BELOW Normal [facility] Comment on above: Result Comment: <100 mg/dl OPTIMAL 100 - 129 mg/dl NEAR OR ABOVE OPTIMAL 130 - 159 mg/dl BORDERLINE HIGH 160 - 189 mg/dl HIGH >190 mg/dl VERY HIGH Performed By: #### C MP, TSH, LIPID #### [facility] [address] [place] [address] Dr. David Zapata Triglyceride [Mass/Vol] 128 mg/dL Normal <=150 [facility] Comment on above: Performed By: #### C MP, TSH, LIPID #### [facility] [address] [place] [address] Dr. David Zapata VLDL CALC 25.6 mg/dL Normal [facility] Comment on above: Performed By: #### C MP, TSH, LIPID #### [facility] [address] [address] [address] David Zapata PROF 14(COMP METB)on 023 Albumin [Mass/Vol] 3.5 g/dL Normal 3.4-5.0 [facility] Comment on above: Performed By: #### C MP, TSH, LIPID #### [facility] [address] [place] [address] Dr. David Zapata Albumin/Globulin [Mass ratio] 1.0 {ratio} Normal [facility] Comment on above: Performed By: #### C MP, TSH, LIPID #### [facility] [address] [address] [address] David Zapata ALP [Catalytic activity/Vol] 68 U/L Normal 46-116 [facility] Comment on above: Performed By: #### C MP, TSH, LIPID #### [facility] [address] [address] [address] David Zapata ALT [Catalytic activity/Vol] 28 U/L Normal 14-59 [facility] Comment on above: Performed By: #### C MP, TSH, LIPID #### [facility] [address] [place] [address] Dr. David Zapata Anion gap [Moles/Vol] 11.3 mmol/L Normal [facility] Comment on above: Performed By: #### C MP, TSH, LIPID #### [facility] [address] [place] [address] Dr. David Zapata AST [Catalytic activity/Vol] 18 U/L Normal 15-37 [facility] Comment on above: Performed By: #### C MP, TSH, LIPID #### [facility] [address] [place] [address] Dr. David Zapata Bilirubin [Mass/Vol] 0.4 mg/dL Normal 0.2-1.0 [facility] Comment on above: Performed By: #### C MP, TSH, LIPID #### [facility] [address] [place] [address] Dr. David Zapata Calcium [Mass/Vol] 8.8 mg/dL Normal 8.5-10.1 [facility] Comment on above: Performed By: #### C MP, TSH, LIPID #### [facility] [address] [place] [address] Dr. David Zapata Chloride [Moles/Vol] 103 mmol/L Normal 98-107 [facility] Comment on above: Performed By: #### C MP, TSH, LIPID #### [facility] [address] [place] [address] Dr. David Zapata CO2 [Moles/Vol] 28.4 mmol/L Normal 21.0-32.0 [facility] Comment on above: Performed By: #### C MP, TSH, LIPID #### [facility] [address] [address] [address] David Zapata Creatinine [Mass/Vol] 0.96 mg/dL Normal 0.55-1.02 [facility] Comment on above: Performed By: #### C MP, TSH, LIPID #### [facility] [address] [address] [address] David Zapata EGFR-AF GABONESE >60 Normal >=60 [facility] Comment on above: Performed By: #### C MP, TSH, LIPID #### [facility] [address] [address] [address] David Zapata EGFR-NON AF GABONESE >60 Normal >=60 [facility] Comment on above: Performed By: #### C MP, TSH, LIPID #### [facility] [address] [address] [address] David Zapata Globulin (S) [Mass/Vol] 3.5 g/dL Normal [facility] Comment on above: Performed By: #### C MP, TSH, LIPID #### [facility] [address] [address] [address] David Zapata Glucose [Mass/Vol] 94 mg/dL Normal 74-106 [facility] Comment on above: Performed By: #### C MP, TSH, LIPID #### [facility] [address] [address] [address] David Zapata Potassium [Moles/Vol] 3.7 mmol/L Normal 3.5-5.1 [facility] Comment on above: Performed By: #### C MP, TSH, LIPID #### [facility] [address] [address] [address] David Zapata Protein [Mass/Vol] 7.0 g/dL Normal 6.4-8.2 [facility] Comment on above: Performed By: #### C MP, TSH, LIPID #### [facility] [address] [address] [address] David Zapata Sodium [Moles/Vol] 139 mmol/L Normal 136-145 [facility] Comment on above: Performed By: #### C MP, TSH, LIPID #### [facility] [address] [address] [address] David Zapata Urea nitrogen [Mass/Vol] 8.0 mg/dL Normal 7.0-18.0 [facility] Comment on above: Performed By: #### C MP, TSH, LIPID #### [facility] [address] [address] [address] David Zapata Urea nitrogen/Creatinine [Mass ratio] 8.3 mg/mg Normal [facility] Comment on above: Performed By: #### C MP, TSH, LIPID #### [facility] [address] [place] [address] Dr. David Zapata TSHon 11-18-2022 TSH 1.557 uIU/mL Normal 0.358-3.740 [facility] Comment on above: Performed By: #### C MP, TSH, LIPID #### [facility] [address] [address] [address] David Zapata VITAMIN B12on 11-18-2022 Cobalamin (Vitamin B12) [Mass/Vol] 247.0 pg/mL Normal 193.0-986.0 [facility] Comment on above: Performed By: #### V ITB12 #### [facility] [address] [place] [address] Dr. David Zapata NM STRESS/REST MULTIon 11-04 NM STRESS/REST MULTI Patient: ELVIA GUTIÉRREZ Exam Date: 11/04/2022 : 1975 Gender:F Ordering : DR VIDHI ANDERSON M.D. Admission #: [id number] Family : Order #: [id number] CLICK HERE TO VIEW EXAM RADIOLOGY REPORT [...] Ferguson M.D. on 11/05/2022 at 11:01 Normal [facility] MAMM SCREEN 3D AMANUEL CADon 07-10-2022 MAMM SCREEN 3D AMANUEL CAD Patient: ELVIA GUTIÉRREZ Exam Date: 07/10/2022 : 1975 Gender:F Ordering : DR PAT HUSTON M.D. Admission #: [id number] Family : Order #: [id number] CLICK HERE TO VIEW EXAM RADIOLOGY REPORT PROCEDURE: MAMMOGRAM SCREENING 3D BILATERAL CAD COMPARISON: MAMM SCREEN AMANUEL W CAD, 08/16/2019. MAMM SCREEN 3D AMANUEL CAD, 05/30/2021. INDICATIONS: Screening mammography Calculator Name NCI Breast Cancer Risk Assessment Tool 5 Year Breast Cancer Risk Not Reported. Lifetime Breast Cancer Risk Not Reported. Personal Breast Cancer No Personal Ovarian Cancer No Treatments None Family Cancers None LOCATION: [facility] BREAST COMPOSITION: Heterogeneously dense,which may [...] MD on 07/10/2022 at 08:04 Normal [facility] CBC AUTO DIFFon 06-24-2022 BASO # 0.0 103/ul Normal 0.0-0.1 [facility] Comment on above: Performed By: #### C BC #### [facility] [address] [place] [address] Dr. David Zapata Basophils/100 WBC (Bld) 0.5 % Normal 0.2-2.0 [facility] Comment on above: Performed By: #### C BC #### [facility] [address] [place] [address] Dr. David Zapata EO # 0.3 103/ul Normal 0.0-0.7 [facility] Comment on above: Performed By: #### C BC #### [facility] [address] [place] [address] Dr. David Zapata Eosinophils/100 WBC (Bld) 3.4 % Normal 0.9-7.0 [facility] Comment on above: Performed By: #### C BC #### [facility] [address] [place] [address] Dr. David Zapata Erythrocyte distribution width (RBC) [Ratio] 12.1 % Normal 11.0-15.0 [facility] Comment on above: Performed By: #### C BC #### [facility] [address] [place] [address] Dr. David Zapata Hematocrit (Bld) [Volume fraction] 40.6 % Normal 36.0-48.0 [facility] Comment on above: Performed By: #### C BC #### [facility] [address] [place] [address] Dr. David Zapata Hemoglobin (Bld) [Mass/Vol] 13.5 g/dL Normal 12.0-16.0 [facility] Comment on above: Performed By: #### C BC #### [facility] [address] [place] [address] Dr. David Zapata IG # 0.03 10e3/ul Normal 0.00-0.03 [facility] Comment on above: Performed By: #### C BC #### [facility] [address] [place] [address] Dr. David Zapata IG % 0.4 % Normal 0.0-0.5 [facility] Comment on above: Performed By: #### C BC #### [facility] [address] [place] [address] Dr. David Zapata LYMPH # 2.1 103/ul Normal 1.2-3.8 [facility] Comment on above: Performed By: #### C BC #### [facility] [address] [place] [address] Dr. David Zapata Lymphocytes/100 WBC (Bld) 28.6 % Normal 20.5-60.0 [facility] Comment on above: Performed By: #### C BC #### [facility] [address] [place] [address] Dr. David Zapata MANUAL DIFF REQ NO Normal [facility] Comment on above: Performed By: #### C BC #### [facility] [address] [place] [address] Dr. David Zapata MCH (RBC) [Entitic mass] 29.2 pg Normal 26.7-34.0 [facility] Comment on above: Performed By: #### C BC #### [facility] [address] [place] [address] Dr. David Zapata MCHC (RBC) [Mass/Vol] 33.3 g/dL Normal 29.9-35.2 [facility] Comment on above: Performed By: #### C BC #### [facility] [address] [place] [address] Dr. David Zapata MCV (RBC) [Entitic vol] 87.9 fL Normal 81.0-99.0 [facility] Comment on above: Performed By: #### C BC #### [facility] [address] [address] [address] David Zapata MONO # 0.6 103/ul Normal 0.3-0.8 [facility] Comment on above: Performed By: #### C BC #### [facility] [address] [address] [address] David Zapata Monocytes/100 WBC (Bld) 7.9 % Normal 1.7-12.0 [facility] Comment on above: Performed By: #### C BC #### [facility] [address] [place] [address] Dr. David Zapata NEUT # 4.3 103/ul Normal 1.4-6.5 [facility] Comment on above: Performed By: #### C BC #### [facility] [address] [place] [address] Dr. David Zapata Neutrophils/100 WBC (Bld) 59.2 % Normal 43.0-75.0 [facility] Comment on above: Performed By: #### C BC #### [facility] [address] [place] [address] Dr. David Zapata Platelet mean volume (Bld) [Entitic vol] 9.2 fL Critically low 9.5-13.5 [facility] Comment on above: Performed By: #### C BC #### [facility] [address] [place] [address] Dr. David Zapata PLT 280 103/ul Normal 150-450 [facility] Comment on above: Performed By: #### C BC #### [facility] [address] [place] [address] Dr. David Zapata RBC 4.62 106/ul Normal 4.20-5.40 [facility] Comment on above: Performed By: #### C BC #### [facility] [address] [place] [address] Dr. David Zapata WBC 7.3 103/ul Normal 4.0-11.0 [facility] Comment on above: Performed By: #### C BC #### [facility] [address] [address] [address] David Zapata GLYCOHEMOGLOBIN A1Con 2021 ADA RECOMMENDATION SEE BELOW Normal [facility] Comment on above: Result Comment: ADA RECOMMENDED LIMIT 4.0 - 6.0 ADA THERAPEUTIC TARGET < 7.0 ACTION SUGGESTED > 7.0 Performed By: #### C MP, TSH, LIPID #### [facility] [address] [address] [address] David Zapata Glucose [Mass/Vol] 103 mg/dL Normal [facility] Comment on above: Performed By: #### C MP, TSH, LIPID #### [facility] [address] [place] [address] Dr. David Zapata HbA1c (Bld) [Mass fraction] 5.2 % Normal 4.5-6.2 [facility] Comment on above: Performed By: #### C MP, TSH, LIPID #### [facility] [address] [place] [address] Dr. David Zapata LIPID PROFILEon 06-24-2022 CHOL-HDL RATIO NORM SEE BELOW Normal [facility] Comment on above: Result Comment: 3.3 - 4.4 LOW RISK 4.4 - 7.1 AVERAGE RISK 7.1 - 11.0 MODERATE RISK >11.0 HIGH RISK Performed By: #### C MP, TSH, LIPID #### [facility] [address] [place] [address] Dr. David Zapata Cholesterol [Mass/Vol] 217 mg/dL Critically high <=200 [facility] Comment on above: Performed By: #### C MP, TSH, LIPID #### [facility] [address] [place] [address] Dr. David Zapata Cholesterol in HDL [Mass/Vol] 50 mg/dL Normal 40-60 [facility] Comment on above: Performed By: #### C MP, TSH, LIPID #### [facility] [address] [place] [address] Dr. David Zapata Cholesterol in LDL [Mass/Vol] 137.6 mg/dL Normal [facility] Comment on above: Performed By: #### C MP, TSH, LIPID #### [facility] [address] [address] [address] David Zapata Cholesterol.total/C holesterol in HDL [Mass ratio] 4.3 {ratio} Normal [facility] Comment on above: Performed By: #### C MP, TSH, LIPID #### [facility] [address] [address] [address] David Zapata HDL NORMAL > or = 60 mg/dl - LO W CARDIOVASCULAR RISK <40 mg/dl - HIGH CARDIOVASCULAR RISK Normal [facility] Comment on above: Performed By: #### C MP, TSH, LIPID #### [facility] [address] [address] [address] David Zapata LDL CALC NORMAL SEE BELOW Normal [facility] Comment on above: Result Comment: <100 mg/dl OPTIMAL 100 - 129 mg/dl NEAR OR ABOVE OPTIMAL 130 - 159 mg/dl BORDERLINE HIGH 160 - 189 mg/dl HIGH >190 mg/dl VERY HIGH Performed By: #### C MP, TSH, LIPID #### [facility] [address] [address] [address] David Zapata Triglyceride [Mass/Vol] 147 mg/dL Normal <=150 [facility] Comment on above: Performed By: #### C MP, TSH, LIPID #### [facility] [address] [address] [address] David Zapata VLDL CALC 29.4 mg/dL Normal [facility] Comment on above: Performed By: #### C MP, TSH, LIPID #### [facility] [address] [address] [address] David Zapata PROF 14(COMP METB)on 022 Albumin [Mass/Vol] 3.6 g/dL Normal 3.4-5.0 [facility] Comment on above: Performed By: #### C MP, TSH, LIPID #### [facility] [address] [address] [address] David Zapata Albumin/Globulin [Mass ratio] 1.1 {ratio} Normal [facility] Comment on above: Performed By: #### C MP, TSH, LIPID #### [facility] [address] [address] [address] David Zapata ALP [Catalytic activity/Vol] 62 U/L Normal 46-116 [facility] Comment on above: Performed By: #### C MP, TSH, LIPID #### [facility] [address] [address] [address] David Zapata ALT [Catalytic activity/Vol] 21 U/L Normal 14-59 [facility] Comment on above: Performed By: #### C MP, TSH, LIPID #### [facility] [address] [address] [address] David Zapata Anion gap [Moles/Vol] 12.6 mmol/L Normal [facility] Comment on above: Performed By: #### C MP, TSH, LIPID #### [facility] [address] [address] [address] David Zapata AST [Catalytic activity/Vol] 14 U/L Critically low 15-37 [facility] Comment on above: Performed By: #### C MP, TSH, LIPID #### [facility] [address] [address] [address] David Zapata Bilirubin [Mass/Vol] 0.6 mg/dL Normal 0.2-1.0 [facility] Comment on above: Performed By: #### C MP, TSH, LIPID #### [facility] [address] [address] [address] David Zapata Calcium [Mass/Vol] 8.5 mg/dL Normal 8.5-10.1 [facility] Comment on above: Performed By: #### C MP, TSH, LIPID #### [facility] [address] [address] [address] David Zapata Chloride [Moles/Vol] 103 mmol/L Normal 98-107 [facility] Comment on above: Performed By: #### C MP, TSH, LIPID #### [facility] [address] [address] [address] David Zapata CO2 [Moles/Vol] 26.2 mmol/L Normal 21.0-32.0 [facility] Comment on above: Performed By: #### C MP, TSH, LIPID #### [facility] [address] [address] [address] David Zapata Creatinine [Mass/Vol] 0.94 mg/dL Normal 0.55-1.02 [facility] Comment on above: Performed By: #### C MP, TSH, LIPID #### [facility] [address] [address] [address] David Zapata EGFR-AF GABONESE >60 Normal >=60 [facility] Comment on above: Performed By: #### C MP, TSH, LIPID #### [facility] [address] [address] [address] David Zapata EGFR-NON AF GABONESE >60 Normal >=60 [facility] Comment on above: Performed By: #### C MP, TSH, LIPID #### [facility] [address] [address] [address] David Zapata Globulin (S) [Mass/Vol] 3.3 g/dL Normal [facility] Comment on above: Performed By: #### C MP, TSH, LIPID #### [facility] [address] [address] [address] David Zapata Glucose [Mass/Vol] 100 mg/dL Normal 74-106 [facility] Comment on above: Performed By: #### C MP, TSH, LIPID #### [facility] [address] [address] [address] David Zapata Potassium [Moles/Vol] 3.8 mmol/L Normal 3.5-5.1 [facility] Comment on above: Performed By: #### C MP, TSH, LIPID #### [facility] [address] [address] [address] David Zapata Protein [Mass/Vol] 6.9 g/dL Normal 6.4-8.2 [facility] Comment on above: Performed By: #### C MP, TSH, LIPID #### [facility] [address] [address] [address] David Zapata Sodium [Moles/Vol] 138 mmol/L Normal 136-145 [facility] Comment on above: Performed By: #### C MP, TSH, LIPID #### [facility] [address] [place], [place] [address] Dr. David Zapata Urea nitrogen [Mass/Vol] 7.0 mg/dL Normal 7.0-18.0 [facility] Comment on above: Performed By: #### C MP, TSH, LIPID #### [facility] [address] [address] [address] David Zapata Urea nitrogen/Creatinine [Mass ratio] 7.4 mg/mg Normal [facility] Comment on above: Performed By: #### C MP, TSH, LIPID #### [facility] [address] [address] [address] David Zapata TSHon 06-24-2022 TSH 1.434 uIU/mL Normal 0.358-3.740 [facility] Comment on above: Performed By: #### C MP, TSH, LIPID #### [facility] [address] [address] [address] David Zapata MRI BRAIN WO W CONon 022 MRI BRAIN WO W CON EXAMINATION: MRI BRA IN WO W CON HISTORY: Imaging of central [...] by: EDILSON FERGUSON Date: 2022-06-10 06:40 Normal [facility] BASIC METABOLIC PANELon 05-26 Calcium [Mass/Vol] 8.6 mg/dL Normal 8.6-10.3 [facility] Comment on above: Order Comment: No: D o not add to previous draw Performed By: #### 5 6101, [id number] #### [facility] [address] [place] [address], [place] Chloride [Moles/Vol] 106 mmol/L Normal 98-107 [facility] Comment on above: Order Comment: No: D o not add to previous draw Performed By: #### 5 6101, 64013 #### [facility] [address] [place] [address], [place] CO2 [Moles/Vol] 24 mmol/L Normal 21-31 [facility] Comment on above: Order Comment: No: D o not add to previous draw Performed By: #### 5 6101, 29786 #### [facility] [address] [place] [address], [place] Creatinine [Mass/Vol] 0.90 mg/dL Normal 0.60-1.20 [facility] Comment on above: Order Comment: No: D o not add to previous draw Performed By: #### 5 6101, 29194 #### [facility] [address] [place] [address], [place] GFR/1.73 sq M predicted among blacks MDRD (S/P/Bld) [Vol rate/Area] mL/min/{1.73_m2} Normal >60 [facility] Comment on above: Order Comment: No: D o not add to previous draw Performed By: #### 5 6101, 27607 #### [facility] [address] [place] [address], [place] GFR/1.73 sq M predicted among non-blacks MDRD (S/P/Bld) [Vol rate/Area] mL/min/{1.73_m2} Normal >60 [facility] Comment on above: Order Comment: No: D o not add to previous draw Performed By: #### 5 6101, 36286 #### [facility] [address] [place] [address], [place] Glucose [Mass/Vol] 97 mg/dL Normal 70-[address] [facility] Comment on above: Order Comment: No: D o not add to previous draw Performed By: #### 5 610, 69086 #### [facility] [address] [place] [address], [place] Potassium [Moles/Vol] 3.9 mmol/L Normal 3.5-5.1 [facility] Comment on above: Order Comment: No: D o not add to previous draw Performed By: #### 5 610, 17187 #### [facility] [address] [place] [address], [place] Sodium [Moles/Vol] 136 mmol/L Normal 136-[address] [facility] Comment on above: Order Comment: No: D o not add to previous draw Performed By: #### 5 610, 33517 #### [facility] [address] [place] [address], [place] Urea nitrogen [Mass/Vol] 11 mg/dL Normal 7-25 [facility] Comment on above: Order Comment: No: D o not add to previous draw Performed By: #### 5 610, 39026 #### [facility] [address] [place] [address], [place] CBC COMPLETE BLOOD COUNTon 0 - Erythrocyte distribution width (RBC) [Ratio] 12.0 % Normal 11.5-15.0 [facility] Comment on above: Order Comment: No: D o not add to previous draw Performed By: #### 5 0608 #### [facility] [address] [place] [address], [facility] Hematocrit (Bld) [Volume fraction] 42.7 % Normal 36.0-45.0 [facility] Comment on above: Order Comment: No: D o not add to previous draw Performed By: #### 5 0608 #### [facility] [address] [place] [address], [facility] Hemoglobin (Bld) [Mass/Vol] 13.9 g/dL Normal 12.0-15.0 [facility] Comment on above: Order Comment: No: D o not add to previous draw Performed By: #### 5 0608 #### [facility] [address] [place] [address], [facility] MCH (RBC) [Entitic mass] 29.6 pg Normal 27.0-33.0 [facility] Comment on above: Order Comment: No: D o not add to previous draw Performed By: #### 5 0608 #### [facility] [address] [place] [address], [facility] MCHC (RBC) [Mass/Vol] 32.6 g/dL Normal 32.0-35.0 [facility] Comment on above: Order Comment: No: D o not add to previous draw Performed By: #### 5 0608 #### [facility] [address] [place] [address], [facility] MCV (RBC) [Entitic vol] 91.0 fL Normal 82.0-98.0 [facility] Comment on above: Order Comment: No: D o not add to previous draw Performed By: #### 5 0608 #### [facility] [address] [place] [id number], [facility] Nucleated RBC/100 WBC (Bld) [Ratio] 0 % Normal 0-0 [facility] Comment on above: Order Comment: No: D o not add to previous draw Performed By: #### 5 0608 #### [facility] [address] PLAT CNT 233 10*3/uL Normal 150-400 [facility] Comment on above: Order Comment: No: D o not add to previous draw Performed By: #### 5 0608 #### [facility] [address] RBC (Bld) [#/Vol] 4.69 10*6/uL Normal 3.80-5.00 [facility] Comment on above: Order Comment: No: D o not add to previous draw Performed By: #### 5 0608 #### [address] WBC (Bld) [#/Vol] 8.19 10*3/uL Normal 4.00-10.60 [facility] Comment on above: Order Comment: No: D o not add to previous draw Performed By: #### 5 0608 #### [address] Cardiovascular Lab Reporton 06-17-2019 Cardiovascular Lab Report [facility] Patient Name: Leslie Guti[facility] Alexy MR #: [id number] Department of Physician: Mike Polanco M.D. Division of Service Date: 06/16/2019 Cardiology Birthdate: 1975 Adult Cardiovascular Room #: 3AB [id number] Services [place] [address] Cardiovascular Laboratory Report FINAL IMPRESSIONS: 1. Angiographically [...] the left radial artery was obtained. A 6-Hungarian glide sheath was inserted without difficulty. Bilateral [...] A Vidhi Anderson M.D. Date Dict: 06/16/2019/03:28 Dale Anderson M.D. Date Trans: 06/17/2019 04:09 A/adela [id number] cc: Pat Huston M.D. [address] [place] [id number] Amos Vazquez M.D. [address] [facility] [address] Normal [facility] HEMOGLOBIN A1Con 06-17-2019 HbA1c (Bld) [Mass fraction] 4.8 % Normal 4.0-6.0 [facility] Comment on above: Order Comment: Yes: Add to Previous draw if able Performed By: #### 5 6101, 82976 #### [facility] [address] [place] [address], [facility] HbA1c (Bld) [Mass fraction] 91 mg/dL Normal 70-126 [facility] Comment on above: Order Comment: Yes: Add to Previous draw if able Performed By: #### 5 6101, 18125 #### [facility] [address] [place] [address], [facility] LIPID PROFILEon 06-17-2019 Cholesterol [Mass/Vol] 209 mg/dL High 120-200 [facility] Comment on above: Order Comment: Yes: Add to Previous draw if able Result Comment: CHOL ESTEROL REFERENCE RANGE: 20 YEARS AND OLDER CARDIOVASCULAR RISK Less than 200 mg/dl Low Risk 200 to 239 mg/dl Borderline Risk 240 mg/dl and greater High Risk Performed By: #### 1 0070, 76483, 77352, 46182 #### [facility] [address] [place] [address], [facility] Cholesterol in HDL [Mass/Vol] 35 mg/dL Normal 23-92 [facility] Comment on above: Order Comment: Yes: Add to Previous draw if able Result Comment: Slig ht variation in normal range could be due to gender and/or age. HDL CHOLESTEROL REFERENCE RANGE: 20 years and older Cardiovascular Risk > or =60 mg/dL Desirable 40 TO 59 mg/dL Low Risk <40 mg/dL High Risk Performed By: #### 1 0070, 04241, 81226, 29899 #### [facility] [address] [place] [address], [facility] Cholesterol in LDL [Mass/Vol] 139 mg/dL High 0-130 [facility] Comment on above: Order Comment: Yes: Add to Previous draw if able Result Comment: LDL IS A CALCULATION LDL IS ONLY VALID IF THE TRIG IS LESS THAN 400. Performed By: #### 1 0070, 89646, 32728, 41823 #### [facility] [address] [place] [address], [facility] Cholesterol.total/C holesterol in HDL [Mass ratio] 6.0 {ratio} High 0.0-4.5 [facility] Comment on above: Order Comment: Yes: Add to Previous draw if able Performed By: #### 1 0070, 70450, 24916, 32825 #### [facility] [address] [place] [address], [facility] NON-HDL CHOLESTEROL 174 mg/dL Normal [facility] Comment on above: Order Comment: Yes: Add to Previous draw if able Performed By: #### 1 0070, 19942, 24569, 38871 #### [facility] [address] [place] [address], [place] Triglyceride [Mass/Vol] 174 mg/dL High 40-149 [facility] Comment on above: Order Comment: Yes: Add to Previous draw if able Result Comment: TRIG LYCERIDE REFERENCE RANGE: 20 YEARS AND OLDER CARDIOVASCULAR RISK LESS THAN 150 mg/dl LOW RISK 150 TO 199 mg/dl BORDERLINE RISK 200 mg/dl AND GREATER HIGH RISK Performed By: #### 1 0070, 15222, 35458, 38918 #### [facility] [address] VLDL CHOL 35 mg/dL Normal 0-40 [facility] Comment on above: Order Comment: Yes: Add to Previous draw if able Performed By: #### 1 0070, 90949, 87148, 79616 #### [facility] [address] [place] [address], [facility] MAGNESIUM BLOODon 06-17-2019 Magnesium [Mass/Vol] 2.2 mg/dL Normal 1.9-2.7 [facility] Comment on above: Order Comment: No: D o not add to previous draw Performed By: #### 1 0070, 27627, 76181, 92402 #### [facility] [address] PHOSPHORUS BLOODon 9 Phosphate [Mass/Vol] 4.3 mg/dL Normal 2.5-5.0 [facility] Comment on above: Order Comment: No: D o not add to previous draw Performed By: #### 5 6101, 32053 #### [facility] [address] APTTon 06-16-2019 aPTT Coag (Bld) [Time] 27.3 s Normal 25.0-35.0 [facility] Comment on above: Result Comment: ALL RESULTS [...] THIS PURPOSE. Performed By: #### 5 6101, 05547 #### [facility] [address] BASIC METABOLIC PANELon 05-26 Calcium [Mass/Vol] 9.3 mg/dL Normal 8.6-10.[address] [facility] Comment on above: Order Comment: No: D o not add to previous draw Performed By: #### 1 0070, 71700, 76806, 57352, 60207 #### [facility] [address] [place] [address], [place] Chloride [Moles/Vol] 105 mmol/L Normal 98-107 [facility] Comment on above: Order Comment: No: D o not add to previous draw Performed By: #### 1 0070, 52765, 38377, 09988, 03137 #### [facility] [address] [place] [address], [place] CO2 [Moles/Vol] 23 mmol/L Normal 21-31 [facility] Comment on above: Order Comment: No: D o not add to previous draw Performed By: #### 1 0070, 37546, 02257, 02263, 90710 #### [facility] [address] [place] [address], [place] Creatinine [Mass/Vol] 0.85 mg/dL Normal 0.60-1.20 [facility] Comment on above: Order Comment: No: D o not add to previous draw Performed By: #### 1 0070, 75440, 78968, 15130, 51361 #### [facility] [address] [place] [address], [place] GFR/1.73 sq M predicted among blacks MDRD (S/P/Bld) [Vol rate/Area] mL/min/{1.73_m2} Normal >60 [facility] Comment on above: Order Comment: No: D o not add to previous draw Performed By: #### 1 0070, 23529, 96966, 19796, 13923 #### [facility] [address] [place] [address], [place] GFR/1.73 sq M predicted among non-blacks MDRD (S/P/Bld) [Vol rate/Area] mL/min/{1.73_m2} Normal >60 [facility] Comment on above: Order Comment: No: D o not add to previous draw Performed By: #### 1 0070, 95769, 26024, 84689, 96652 #### [facility] [address] [place] [address], [place] Glucose [Mass/Vol] 91 mg/dL Normal 70-[address] [facility] Comment on above: Order Comment: No: D o not add to previous draw Performed By: #### 1 0070, 67593, 08393, 84315, 66249 #### [facility] [address] [place] [address], [place] Potassium [Moles/Vol] 3.9 mmol/L Normal 3.5-5.1 [facility] Comment on above: Order Comment: No: D o not add to previous draw Performed By: #### 1 0070, 50115, 68229, 38948, 78186 #### [facility] [address] [place] [address], [facility] Sodium [Moles/Vol] 136 mmol/L Normal 136-[address] [facility] Comment on above: Order Comment: No: D o not add to previous draw Performed By: #### 1 0070, 42498, 18426, 59881, 43087 #### [facility] [address] [place] [address], [place] Urea nitrogen [Mass/Vol] 10 mg/dL Normal 7-25 [facility] Comment on above: Order Comment: No: D o not add to previous draw Performed By: #### 1 0070, 61408, 47126, 47538, 45324 #### [facility] [address] [place] [address], [place] FREE T3on 06-16-2019 Free T3 [Mass/Vol] 2.6 pg/mL Normal 2.5-3.[address] [facility] Comment on above: Performed By: #### 1 0070, 47349, 63399, 40655, 67061 #### [facility] [address] [facility] [place] [address], [facility] FREE T4on 06-16-2019 Free T4 [Mass/Vol] 0.73 ng/dL Normal 0.71-1.[address] [facility] Comment on above: Performed By: #### 1 0070, 90655, 76434, 72646, 93297 #### [facility] [address] [place] [address], [facility] MAGNESIUM BLOODon 06-16-2019 Magnesium [Mass/Vol] 2.2 mg/dL Normal 1.9-2.7 [facility] Comment on above: Order Comment: No: D o not add to previous draw Miss Performed By: #### 1 0070, 24470, 11392, 32534, 63965 #### [facility] [address] PROTHROMBIN TIMEon 9 INR Coag (PPP) [Relative time] 1.06 {INR} Normal 0.91-1.16 [facility] Comment on above: Result Comment: ACCC P RECOMMENDED INR FOR WARFARIN THERAPY ------ ------- CONDITION INR PROPHYLAXIS OF VENOUS THROMBOSIS 2-3 (HIGH-RISK SURGERY) TREATMENT OF VENOUS THROMBOSIS 2-3 TREATMENT OF PULMONARY EMBOLISM 2-3 PREVENTION OF SYSTEMIC EMBOLISM: 2-3 ACUTE MYOCARDIAL INFARCTION TISSUE HEART VALVES VALVULAR HEART DISEASE ATRIAL FIBRILLATION RECURRENT SYSTEMIC EMBOLISM MECHANICAL HEART VALVE 2.5-3.5 FROM: ORAL ANTICOAGULANTS. MECHANISM OF ACTION, CLINICAL EFFECTIVENESS, AND OPTIMAL THERAPEUTIC RANGE. CHEST 1995;108:231S-246S. Performed By: #### 5 5562, 82437 #### [facility] [address] [place] [address], [facility] PT Coag (PPP) [Time] 13.8 s Normal 12.3-14.8 [facility] Comment on above: Result Comment: ALL RESULTS MUST BE INTERPRETED WITH RESPECT TO BLOOD DRAWING ARTIFACT OR DILUTION ERROR OF ANTICOAGULANT AT THE TIME OF SAMPLING. Performed By: #### 5 6101, 71435 #### [facility] [address] [place] [address], [facility] TSH3on 06-16-2019 TSH 3RD GENERATION 1.94 uIU/mL Normal 0.34-5.60 [facility] Comment on above: Performed By: #### 1 0070, 02070, 32975, 99059, 23014 #### [facility] [address] [place] [address], [facility] Vital Signs Date Time Vital Sign Value Performing Clinician Faci lity 08-23-2024 11:16-0400 Body height 165.1 cm [facility] 08-23-2024 11:16-0400 Body mass index (BMI) [Ratio] 35.4 kg/m2 [facility] 08-23-2024 11:16-0400 Body weight 96.61 kg [facility] 08-23-2024 11:16-0400 Diastolic blood pressure 69 mm[Hg] [facility] 08-23-2024 11:16-0400 Heart rate 65 /min [facility] 08-23-2024 11:16-0400 Systolic blood pressure 100 mm[Hg] [facility] 09-07-2023 10:29-0500 Body height 165.1 cm MD Pat Huston Work Phone: [facility] 09-07-2023 10:29-050 Body weight 97.52 kg MD Pat Huston Work Phone: [facility] Encounters Encounter Date Encounter Type Care Provider Facility Start: 08-23-2024 Patient encounter status [facility] Start: 08-23-2024 End: 08-23-2024 ambulatory [facility] Work Phone: Start: 08-23-2024 End: 08-23-2024 Patient encounter procedure [facility] Work Phone: Start: 04-11-2024 End: 04-11-2024 ambulatory DALTON OROZCO [facility] Start: 02-28-2024 End: 02-28-2024 ambulatory HARLAN PETTY Not Available Start: 02-21-2024 End: 02-21-2024 ambulatory [facility] Start: 12-22-2023 End: 12-22-2023 ambulatory [facility] Start: 09-07-2023 Telephone encounter Pat Huston [facility] Start: 09-07-2023 End: 09-07-2023 ambulatory Pat Huston Facility:[facility] Start: 09-07-2023 End: 09-07-2023 ambulatory MD Pat Huston Work Phone: [facility] Work Phone: Start: 09-07-2023 End: 09-07-2023 Patient encounter procedure MD Pat Huston Work Phone: [facility] [place] Work Phone: Start: 08-06-2023 End: 08-06-2023 ambulatory Pat Huston Other [facility] Other Start: 08-06-2023 Telephone encounter Pat Huston [facility] Start: 07-27-2023 End: 07-27-2023 ambulatory Pat Huston Other [facility] Other Start: 07-27-2023 Telephone encounter Pat Huston [facility] Start: 07-13-2023 End: 07-13-2023 ambulatory Pat Huston Other [facility] Other Start: 07-13-2023 Telephone encounter Pat Huston [facility] Start: 07-06-2023 End: 07-06-2023 ambulatory Pat Huston Other [facility] Other Start: 07-06-2023 Telephone encounter Pat Huston [facility] Start: 04-22-2023 ambulatory Kevon Serna acility:[facility] Start: 03-11-[address] VIDHI ANDERSON Facili ty:[facility] Start: 02-16-2023 End: 02-17-[address] JL REAL Facility:[facility] Start: 02-11-2023 End: 02-12-[address] VIDHI ANDERSON Facility:[facility] Start: 11-20-2022 Encounter for genera l adult medical examination without abnormal findings DR PAT HUSTON [facility] Start: 11-19-2022 End: 11-19-2022 ambulatory Pat Huston Other [facility] Other Start: 11-19-2022 Telephone encounter Pat Huston [facility] Start: 11-18-2022 End: 11-19-[address] PAT HUSTON Facility:[facility] Start: 11-18-2022 End: 11-19-2022 Encounter for general adult medical examination without abnormal findings DR PAT HUSTON Facility:[facility] Start: 11-04-2022 End: 11-05-[address] VIDHI ANDERSON Facility:[facility] Start: 07-10-2022 End: 07-11-[address] PAT HUSTON Facility:[facility] Start: 06-26-2022 Adult health examination Vielka Huston Other [facility] Other Start: 06-26-2022 Encounter for genera l adult medical examination without abnormal findings Pat Huston Other [facility] Other Start: 06-24-2022 End: 06-25-[address] PAT HUSTON Facility:[facility] Start: 06-09-2022 End: 06-10-[address] DOCTOR MEDINA Facility:[facility] Start: 06-16-2019 End: 06-17-2019 Patient encounter procedure ALESSANDRO GARRIDO Facility:[facility] Start: 10-27-2016 Gynecological examination normal Pat Huston Other [facility] Other Procedures Date Procedure Procedure Detail Performing Clinician Start: 09-07-2023 MRI of bilateral sasha asts with contrast MD Pat Huston Work Phone: Start: 08-12-2009 visit Pat Huston Other Start: 08-29-2007 Contraception care education Pat Huston Other Screening for malign ant neoplasm of breast Pat Huston Other Viral screening Pat Huston Other Plan of Treatment Date Care Activity Detail Author Comprehensive metabo lic 2000 panel - Serum or Plasma [facility] enter XR Pelvis and Hip - bilateral Views [facility] Payers Date Payer Category Payer Self-pay [id number] 2022 Unknown [id number] 2019 Unknown [id number] . [id number] 1975 Unknown [id number] 2.16.8 [id number] 1975 Unknown [id number] 2.16.84 [id number] 1977 Unknown [id number] 2.16.84 [id number] 1977 Unknown [id number] 2.16.84 [id number] 1977 Unknown [id number] 2.16.84 [id number] 1977 Unknown [id number] 2.16.84 [id number] 1977 Unknown [id number] 2.16.84 [id number] 1977 Unknown [id number] 2.16.84 [id number] 1977 Unknown [id number] 2.16.84 [id number] 1977 Unknown [id number] 2.16.84 [id number] 1957 Self-pay [id number] Unknown [id number] Unknown Other1 (STD) [id number] Unknown [id number] 2.16.8 [id number] Unknown [id number] 2.16.8 [id number] Social History Date Type Detail Facility Unknown if ever smoked [facility] Other Sex Assigned At Sex Assigned At Bir th [facility] Other Start: 1975 Sex Assigned At Female F [facility] Start: 04-20-2022 Tobacco smoking status NHIS Never smoked tobacco (finding) [facility] Clinical Notes 11-04-2022 to 04-11-2024 Note Date & Type Note Facility 04-11-2024 Note [place] [facility] Consult Note [facility] Reason for visit: HPI: Elvia Gutiérrez is a 48 y.o. 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 DENIS in the past. She had no complaint of shortness of breath which occurs still both at rest and with exertion and has endorsed palpitations on a few occasions each day which she describes as rapid beats that last for a few minutes. During this episode she is dizzy but never had any karrie syncope. She has had previous cardiac evaluation which included echocardiogram and December 2023 which revealed normal EF and normal valve function and a prior event monitor did not reveal any evidence of tachycardia. She also has a PFO which is being evaluated. Of late she has noted that her palpitations has resolved. Prior EKG from 12/29/2022 did not reveal any evidence of preexcitation event monitor that was placed in December 2023 did not reveal any evidence of SVT but occasional PVCs show PMH: Past Medical History: Diagnosis Date Hypertension Paroxysmal tachycardia (CMS/HCC) Prinzmetal angina (CMS/HCC) WPW (Wcoxu-Djnjmjprw-Gskdi syndrome) PSH: Past Surgical History: Procedure Laterality Date CARDIAC CATHETERIZATION HYSTERECTOMY SH: Social Determinants of Health Tobacco Use: Low Risk (06/14/2023) Patient History Smoking Tobacco Use: Never Smokeless Tobacco Use: Never Passive Exposure: Not on file Alcohol Use: Not on file Financial Resource Strain: Not on file Food Insecurity: Not on file Transportation Needs: Not on file Physical Activity: Not on file Stress: Not on file Social Connections: Not on file Intimate Partner Violence: Unknown (12/16/2023) [place] Safety & Environment Fear of Current or Ex-Partner: Not on file Emotionally Abused: Not on file Physically Abused: Not on file Sexually Abused: Not on file Physically or Sexually Abused: Not on file Depression: Not on file Housing Stability: Not on file Utilities: Not on file Allergies: Allergies Allergen Reactions Levofloxacin Hives Meperidine GI intolerance and Other Oxycodone-Acetaminophen Other and GI intolerance Propoxyphene N-Acetaminophen Other and GI intolerance Weight: 96.2kg Visit Vitals BP 108/68 (BP Location: Right arm, Patient Position: Sitting) Pulse 59 Ht 1.676 m (5' 6 ) Wt 96.2 kg (212 lb) SpO2 99% BMI 34.22 kg/m??? OB Status Hysterectomy Smoking Status Never BSA 2.12 m??? Meds: Current Outpatient Medications on File Prior to Visit Medication Sig Dispense Refill buPROPion XL (Wellbutrin XL) 300 mg 24 hr tablet Take 300 mg by mouth in the morning. clopidogrel (Plavix) 75 mg tablet Take 1 tablet (75 mg) by mouth once daily as directed. 90 tablet 3 dilTIAZem CD (Cardizem CD) 120 mg 24 hr capsule Take 1 capsule (120 mg) by mouth in the morning. 90 capsule 3 DULoxetine (Cymbalta) [address] capsule Take 30 mg by mouth in the morning. hydroCHLOROthiazide (HYDRODiuril) 25 mg tablet Take 1 tablet (25 mg) by mouth in the morning. 90 tablet 3 isosorbide mononitrate ER (Imdur) 120 mg 24 hr tablet Take 1 tablet (120 mg) by mouth in the morning. Do not crush or chew. 90 tablet 3 metoprolol tartrate (Lopressor) 25 mg tablet Take 1 tablet (25 mg) by mouth in the morning and at bedtime. 180 tablet 3 nitroglycerin (Nitrostat) 0.[address] 1 tablet (0.4 mg) under the tongue every 5 (five) minutes if needed for chest pain. May repeat dose every 5 minutes for up to 3 doses total. 50 tablet 0 rosuvastatin (Crestor) 40 mg tablet Take 1 tablet (40 mg) by mouth at bedtime. 90 tablet 3 No current facility-administered medications on file prior to visit. ROS: Review of Systems Cardiovascular: Positive for palpitations. Neurological: Positive for dizziness and light-headedness. All other systems reviewed and are negative. Physical Exam: Constitutional General Appearance: well-nourished, well-developed, appears stated age Level of Distress: comfortable Psychiatric Mental Status: alert, normal affect Orientation: oriented to time, place, and person Insight: good judgement Eyes Lids and Conjunctivae: non-injected, no xanthelasma ENMT Ears: no lesions on external ear Nose: no lesions on external nose Oropharynx: no cyanosis, no pallor Neck Neck: supple, trachea midline Carotid Arteries: bilateral normal upstroke, no bruits Jugular Veins: normal jugular venous pressure Thyroid: not enlarged Lungs Respiratory Effort: unlabored Chest Exam: normal curvature, no thoracic deformity Auscultation: clear, no wheezing, no rales, no rhonchi Cardiovascular Rate And Rhythm: regular Heart Sounds: normal S1, normal s2, no gallop Systolic Murmur: not heard Diastolic Murmur: not heard Extremities: no cyanosis, no edema, no peripheral signs of emboli Peripheral Pulses Radial Pulse: normal Abdomen Inspec (more content not included)... [facility] 02-21-2024 Note [facility] Cardiology Clinic Note Chief Complaint: Patient [...] tachycardia (CMS/HCC), Prinzmetal angina (CMS/HCC), and WPW (Geeqd-Denucuoqa-Elphc syndrome). Surgical History She has a past [...] less than 1%. (more content not included)... [facility] 12-22-2023 Note [facility] Cardiology Clinic Note Chief Complaint: Patient [...] tachycardia (CMS/HCC), Prinzmetal angina (CMS/HCC), and WPW (Cirxi-Hspkykjmd-Swqwr syndrome). 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 [facility] 07-27-2023 Evaluation note Encounter Date Diagnosis Assessment Notes Jul, Abnormal mammogram (ICD-10 - R92.8) [facility] Other 09-19-2023 Evaluation note* Encounter Date Diagnosis Assessment Notes Treatment Notes Treatment Clinical Notes Jun, Abnormal mammogram of right breast (ICD-10 - R92.8) [facility] Other 09-12-2023 Evaluation note* Encounter Date Diagnosis Assessment Notes Treatment Notes Treatment Clinical Notes Jun, Screening mammogram for breast cancer (ICD-10 - Z12.31) [facility] Other 01-11-2023 NoteCARDIAC STRESS TEST Requesting Physician: Vidhi Anderson [...] further information. 7. Clinical correlation is recommended.[facility] Information[facility] Other Evaluation noteNo assessment information available [facility] Work Phone: Evaluation note* Diagnosis Onset Date Resolution Status Bilateral hip pain acute [facility] Work Phone: History general Narrative - Reported* [...] Medical History CERVICAL DISORDER Surgical History arthroscopy twice-2006,2007; rh inoplasty Surgical History lap-hystoscopy, d&c 2016 Surgical History hysterectomy Surgical History bone marrow donation 2013 Hospitalization History see above [facility] Other History general Narrative - Reported* Type [...] Outpatient, Surgical History Problem Title : NON FUR SORTER SURGERIES: Right knee arthroscopy, Problem Status : [...] Status : Active, Hospitalization History see above [facility] Other Summary Purpose Family History Relationship Condition Age at Onset Recorded Date/T porfirio father Hypertension Unknown Heart disease Unknown History of stroke Unknown mother Hypertension Unknown Advance Directives Advance Directive Response Recorded Date/ Time Advance Directives No August 9:55am Advance Directive Response Recorded Date/ Time Advance Directives No August 10:55am Hospital Course Note MR#: [id number] I [facility] Pt. Name: Elvia Gutiérrez Admitted: 06/16/2019 Discharged: 06/17/2019 Date of : 1975 Physician: Alessandro Garrido MD DISCHARGE SUMMARY PRIMARY DIAGNOSES: 1. Typical chest pain with abnormal stress test. Post heart catheterization, which demonstrated no significant coronary artery stenosis. 2. Major depressive disorder. 3. Lower end of normal T4 with normal TSH. 4. Apaga-Suodxmofx-Tqimo. HOSPITAL COURSE: The patient is a 43-year-old [...] and Reason for Visit Chief Complaint r92.8 Chief Complaint hip pain Reason for Visit Bilateral hip pain Additional Source Comments INFORMATION SOURCE (unrecogn ized section and content) DATE CREATED AUTHOR 09/18/2019 [facility] DATE CREATED AUTHOR AUTHOR'S ORGANIZ ATION 03/07/2023 [facility] DATE CREATED AUTHOR AUTHOR'S ORGANIZ ATION 10/14/2023 [facility] [facility] DATE CREATED AUTHOR AUTHOR'S ORGANIZ ATION 02/29/2024 [facility] DATE CREATED AUTHOR AUTHOR'S ORGANIZ ATION 07/25/2024 [facility] REASON FOR VISIT (unrecogniz ed section and content) labsordermammabnormal mammme ssagebreast MRI Care Teams (unrecognized sec tion and content) Team Status: Active Member Role Status Dates Pat Huston MD Primary Care Provider Active Team Status: Inactive Member Role Status Dates Pat Huston MD Primary Care Provider, Attending Agnes macdonald Active Team Status: Inactive Member Role Status Dates Pat Huston MD Primary Care Provide r, Attending Provider Active Start: August 23, 2024 End: August 23, 2024 Goals (unrecognized section and content) Goals may [...] BE BASED ON THE PRIMARY CLINICAL RECORDS. [facility] provides no warranty or guarantee of the accuracy or completeness of information in this document.
[2024-08-24 07:50] LABS: Basophils Percent Auto 0.4 % (0.2-2.0); Eosinophils Absolute Auto 0.2 10^3/uL (0.0-0.7); Eosinophils Percent Auto 3.2 % (0.9-7.0); Hematocrit 40.8 % (36.0-48.0); Immature Granulocytes Abs Auto 0.02 10^3/uL (0.00-0.03); Immature Granulocytes Pct Auto 0.3 % (0.0-0.5); Lymphocytes Absolute Auto 2.3 10^3/uL (1.2-3.8); Lymphocytes Percent Auto 30.8 % (20.5-60.0); Mean Corpuscular HGB Conc 34.3 g/dL (29.9-35.2); Mean Corpuscular Hemoglobin 29.9 pg (26.7-34.0); Mean Corpuscular Volume 87.2 fL (81.0-99.0); Mean Platelet Volume 9.4 fL (9.5-13.5); Monocytes Absolute Auto 0.6 10^3/uL (0.3-0.8); Monocytes Percent Auto 7.3 % (1.7-12.0); Neutrophils Absolute Auto 4.4 10^3/uL (1.4-6.5); Platelet Count 241 10^3/uL (150-450); Red Blood Count 4.68 10^6/uL (4.20-5.40); White Blood Count 7.5 10^3/uL (4.0-11.0)
[2024-08-24 08:30] LABS: Estimated Average Glucose 108 mg/dL; Glycohemoglobin A1C 5.4 % (4.5-6.2)
[2024-08-24 09:14] LABS: Alanine Aminotransferase 25 U/L (14-59); Albumin Globulin Ratio 0.8; Albumin Level 3.1 g/dL (3.4-5.0); Alkaline Phosphatase 69 U/L (46-116); Anion Gap 16.4; Aspartate Amino Transferase 21 U/L (15-37); BUN Creatinine Ratio 6.7; Bilirubin Total 0.5 mg/dL (0.2-1.0); Calcium 8.5 mg/dL (8.5-10.1); Carbon Dioxide 24.7 mmol/L (21.0-32.0); Chloride 104 mmol/L (98-107); Chol HDL Ratio 2.2; Cholesterol 107 mg/dL (<=200); Estimated GFR (African America 59 (>=60 mL/min/1.73m^2); Estimated GFR (Non-African Ame 49 (>=60 mL/min/1.73m^2); Globulin 3.7 g/dL; Glucose 100 mg/dL (74-106); HDL Cholesterol 48 mg/dL (40-60); Potassium 3.1 mmol/L (3.5-5.1); Sodium 142 mmol/L (136-145); Total Protein 6.8 g/dL (6.4-8.2); Triglycerides 150 mg/dL (<=150)
== END 2024-08-24 07:20 | disposition home or self-care (01) ==
PROVIDERS: PCP Family Medicine; Visit Provider Family Medicine
DX: Z00.00 Encounter for general adult medical examination without abnormal findings (principal)
CPT/HCPCS: 36415; 80053; 80061; 83036; 84443; 85025

== ENCOUNTER 2024-08-24 07:23 | Outpatient (OUT) | payer BC, SELFPAY ==
--- OUTSIDE RECORDS SUMMARY | 2024-08-24 07:27 | XMS_ITS | CCD ---
Author Organization [facility] Care Team Providers Care [place] Agent Name Role Phone ALESSANDRO GARRIDO Admitting Unavailable ALESSANDRO GARRIDO Attending Unavailable PAT HUSTON Referring Unavailable ROBEL, PAT Primary Care Unavailable Pat Huston Unavailable DR PAT HUSTON Admitting Unavailable HUSTON, DR PAT Kumari Attending Unavailable HUSTON, DR PAT Kumari Primary Care Unavailable VIOLA, DR NILESH Foy Consulting Unavailable HUSTON, DR [...] Unavailable MD Pat Huston Primary Care Provider [phone] MD Pat Huston Attending Provider [phone] Pat Huston Admitting Unavailable Pat Huston Primary [...] / oxyCODONE Drug Allergy 07-30-20 14 [facility] (8 sources) levoFLOXacin Drug Allergy 10-11-20 16 hives [facility] (2 sources) Meperidine Drug Allergy 07-30-20 14 [facility] (2 sources) Darvocet-N 100 Drug allergy (disorder) 07-30-20 14 [facility] (6 sources) Acetaminophen / oxyCODONE Drug Allergy Unknown [facility] Other (6 sources) Acetaminophen / Propoxyphene Drug Allergy Unknown [facility] Other (9 sources) Meperidine; Translations: [MEPERIDINE] Drug Allergy 12-15-19 14 Unknown, [facility] (7 sources) Simvastatin Drug Allergy 08-23-20 24 Unknown, [facility] (1 source) Tylenol-Codeine #3 Drug allergy (disorder) [facility] (5 sources) Allergies Reconciled Propensity to adverse reactions Unknown [facility] Other (5 sources) patient allergy list reviewed by nurse or physicia Propensity to adverse reactions 06-21-20 19 Comment:Done [facility] Other (5 sources) Darvocet A500 *ANALGESICS - OPIOID* Propensity to adverse reactions 10-27-19 17 Unknown [facility] Other (2 sources) Acetaminophen; Translations: [acetaminophen] Drug Allergy 09-07-20 23 [facility] (4 sources) levoFLOXacin; Translations: [levofloxacin] Drug Allergy 08-21-20 21 [facility] (3 sources) oxyCODONE; Translations: [oxycodone] Drug Allergy 09-07-20 Vomiting [facility] (3 sources) Propoxyphene; Translations: [propoxyphene] Drug Allergy 09-07-20 Vomiting [facility] (1 source) Meperidine Drug Allergy 09-07-20 [facility] (1 source) Acetaminophen / oxyCODONE; Translations: [OXYCODONE-ACETAM INOPHEN] Drug Allergy 12-15-19 14 [facility] (1 source) PROPOXYPHENE N-ACETAMINOPHEN; Translations: [PROPOXYPHENE N-ACETAMINOPHEN] Propensity to adverse reactions to drug (disorder) 12-15-19 14 [facility] (1 source) Darvocet A500 *ANALGESICS - OP Allergy to substance 08-23-20 Hives [facility] Medications Current Medications Medication Drug Class(es) Dates [...] times daily for 0 *Pick strength-form from [employer] for eRX* Jun, Active take 1 tablet [...] daily; Note: Source Status: Taking*Pick strength-form from [employer] for eRX*; Provider: Robel Stewart ( ) Start: 06-25-2022 Citalopram Hyd robromide 20MG Citalopram Hydrobromide( 20MG Oral 2 times daily ) Active -Hx Entry Oral 2 times daily for 0 *Pick strength-form from [employer] for eRX* Jun, Active dilTIAZem hydrochloride 120 [...] Oral daily for 0 *Pick strength-form from [employer] for eRX* Jun, Active take 2 tablets by [facility] every twenty-four hours Cardizem 120 MG 2 [...] Orally Once a day; Note: Source Status: [id number] mg; Provider: Robel Stewart ( ) Start: 06-26-2022 Imdur 120MG Im dur( 120MG Oral ) Active -Hx Entry Oral for 0 *Reorder from [employer] for eRx and Interaction Alerts* Jun, Active [...] disease (2 sources) Atherosclerotic heart disease of [place] coronary artery without angina pectoris; Translations: [Atherosclerotic heart disease of [place] coronary artery without angina pectoris] Onset: 02-21-2024 [...] 36on 07-25-2024 36 Patient made aware. Normal [facility] 36on 07-24-2024 36 Patient stopped by t he office today. Says she was out of hydrochlorothiazide for 2 days and gained 8#. She did lose those 8# once she restarted it. She wants to know if this is normal and she wonders how much water weight is really on her. Any advice? Thanks. Normal [facility] Office Visiton 04-11-2024 Follow-up visit [id number] Aga Gutiérrez cca 1975 F Date Provider Department Center 04/11/2024 DALTON SANDOVAL BEATA Desai [facility] Family History Problem Relation Age of Onset Supraventricular tachycardia Mother Heart disease Father Supraventricular tachycardia Sister Heart disease Paternal Grandmother Heart disease Paternal Grandfather Family Status - Relation Status Age at Mother Father Sister Paternal Grandmother Paternal Grandfather Level of Service:05904 HI OFFICE/OUTPATIENT NEW MODERATE MDM 45 MINUTES Normal [facility] Office Visiton 02-21-2024 Follow-up visit [id number] Aga Gutiérrez cca 1975 F Date Provider Department Center 02/21/2024 VIDHI ECHEVARRIA BEATA [facility] Family History Problem Relation Age of Onset Supraventricular tachycardia Mother Heart disease Father Supraventricular tachycardia Sister Heart disease Paternal Grandmother Heart disease Paternal Grandfather Family Status - Relation Status Age at Mother Father Sister Paternal Grandmother Paternal Grandfather Level of Service:88472 HI OFFICE/OUTPATIENT ESTABLISHED LOW MDM 20 MIN Normal [facility] 36on 01-11-2024 36 Regarding echo w/ [...] defect. Thank you Patient made aware. Normal [facility] Office Visiton 12-22-2023 Follow-up visit [id number] Aag Gutiérrez cca 1975 F Date Provider Department Center 12/22/2023 VIDHI ECHEVARRIA BEATA [facility] Family History Problem Relation Age of Onset Supraventricular tachycardia Mother Heart disease Father Supraventricular tachycardia Sister Heart disease Paternal Grandmother Heart disease Paternal Grandfather Family Status - Relation Status Age at Mother Father Sister Paternal Grandmother Paternal Grandfather Level of Service:63355 HI OFFICE/OUTPATIENT ESTABLISHED HIGH MDM 40 MIN Normal [facility] MR breast BI wo/w con CADon 09-07-2023 MR breast BI wo/w con CAD [facility] [place] [address] MRI Report Signed Patient: Elvia Gutiérrez MR#: [id number] : 1975 Acct:[id number] Age/Sex: 48 / F ADM Date: 09/07/23 Loc: MR Room: Type: [facility] Attending Dr: Pat Huston MD Copies [...] All imaged data was reviewed using the [employer] system. The postcontrast images were subtracted and [...] Waite Jr., D.O.09/07/2023 11:47 AM Dictation Location: [place] [address] Transcribed By: [facility] 09/07/23 1147 Dictated By: Bunny Waite Jr, DO 09/07/23 1138 Signed By: 09/07/23 1147 [facility] MRI BRAIN WO W CONon 04-25-2 [...] by: EDILSON FERGUSON Date: 2023-02-16 10:16 Normal [facility] LIPID PROFILEon 02-11-2023 CHOL-HDL RATIO NORM SEE BELOW Normal [facility] Comment on above: Result Comment: 3.3 - 4.4 LOW RISK 4.4 - 7.1 AVERAGE RISK 7.1 - 11.0 MODERATE RISK >11.0 HIGH RISK Performed By: #### C MP, TSH, LIPID #### [facility] [address] [address] [address] David Zapata Cholesterol [Mass/Vol] 120 mg/dL Normal <=200 [facility] Comment on above: Performed By: #### C MP, TSH, LIPID #### [facility] [address] [address] [address] David Zapata Cholesterol in HDL [Mass/Vol] 54 mg/dL Normal 40-60 [facility] Comment on above: Performed By: #### C MP, TSH, LIPID #### [facility] [address] [address] [address] David Zapata Cholesterol in LDL [Mass/Vol] 45.6 mg/dL Normal [facility] Comment on above: Performed By: #### C MP, TSH, LIPID #### [facility] [address] [address] [address] David Zapata Cholesterol.total/C holesterol in HDL [Mass ratio] 2.2 {ratio} Normal [facility] Comment on above: Performed By: #### C MP, TSH, LIPID #### [facility] [address] [address] [address] David Zapata HDL NORMAL > or = 60 mg/dl - LO W CARDIOVASCULAR RISK <40 mg/dl - HIGH CARDIOVASCULAR RISK Normal [facility] Comment on above: Performed By: #### C MP, TSH, LIPID #### [facility] [address] [address] [address] David Zapata LDL CALC NORMAL SEE BELOW Normal [facility] Comment on above: Result Comment: <100 mg/dl OPTIMAL 100 - 129 mg/dl NEAR OR ABOVE OPTIMAL 130 - 159 mg/dl BORDERLINE HIGH 160 - 189 mg/dl HIGH >190 mg/dl VERY HIGH Performed By: #### C MP, TSH, LIPID #### [facility] [address] [address] [address] David Zapata Triglyceride [Mass/Vol] 102 mg/dL Normal <=150 [facility] Comment on above: Performed By: #### C MP, TSH, LIPID #### [facility] [address] [address] [address] David Zapata VLDL CALC 20.4 mg/dL Normal [facility] Comment on above: Performed By: #### C MP, TSH, LIPID #### [facility] [address] [address] [address] David Zapata LIVER PROFILEon 02-11-2023 Albumin [Mass/Vol] 3.4 g/dL Normal 3.4-5.0 [facility] Comment on above: Performed By: #### C MP, TSH, LIPID #### [facility] [address] [address] [address] David Zapata Albumin/Globulin [Mass ratio] 1.0 {ratio} Normal [facility] Comment on above: Performed By: #### C MP, TSH, LIPID #### [facility] [address] [address] [address] David Zapata ALP [Catalytic activity/Vol] 51 U/L Normal 46-116 [facility] Comment on above: Performed By: #### C MP, TSH, LIPID #### [facility] [address] [address] [address] David Zapata ALT [Catalytic activity/Vol] 32 U/L Normal 14-59 [facility] Comment on above: Performed By: #### C MP, TSH, LIPID #### [facility] [address] [place] [address] Dr. David Zapata AST [Catalytic activity/Vol] 18 U/L Normal 15-37 [facility] Comment on above: Performed By: #### C MP, TSH, LIPID #### [facility] [address] [place] [address] Dr. David Zapata BILI, CONJUGATED 0.1 mg/dL Normal 0.0-0.2 [facility] Comment on above: Performed By: #### C MP, TSH, LIPID #### [facility] [address] [place] [address] Dr. David Zapata Bilirubin [Mass/Vol] 0.4 mg/dL Normal 0.2-1.0 [facility] Comment on above: Performed By: #### C MP, TSH, LIPID #### [facility] [address] [place] [address] Dr. David Zapata Globulin (S) [Mass/Vol] 3.5 g/dL Normal [facility] Comment on above: Performed By: #### C MP, TSH, LIPID #### [facility] [address] [place] [address] Dr. David Zapata Protein [Mass/Vol] 6.9 g/dL Normal 6.4-8.2 [facility] Comment on above: Performed By: #### C MP, TSH, LIPID #### [facility] [address] [place] [address] Dr. David Zapata CBC AUTO DIFFon 11-18-2022 BASO # 0.0 103/ul Normal 0.0-0.1 [facility] Comment on above: Performed By: #### C BC #### [facility] [address] [place] [address] Dr. David Zapata Basophils/100 WBC (Bld) 0.4 % Normal 0.2-2.0 [facility] Comment on above: Performed By: #### C BC #### [facility] [address] [place] [address] Dr. David Zapata EO # 0.3 103/ul Normal 0.0-0.7 [facility] Comment on above: Performed By: #### C BC #### [facility] [address] [place] [address] Dr. David Zapata Eosinophils/100 WBC (Bld) 3.4 % Normal 0.9-7.0 [facility] Comment on above: Performed By: #### C BC #### [facility] [address] [place] [address] Dr. David Zapata Erythrocyte distribution width (RBC) [Ratio] 12.0 % Normal 11.0-15.0 [facility] Comment on above: Performed By: #### C BC #### [facility] [address] [place] [address] Dr. David Zapata Hematocrit (Bld) [Volume fraction] 44.2 % Normal 36.0-48.0 [facility] Comment on above: Performed By: #### C BC #### [facility] [address] [place] [address] Dr. David Zapata Hemoglobin (Bld) [Mass/Vol] 14.0 g/dL Normal 12.0-16.0 [facility] Comment on above: Performed By: #### C BC #### [facility] [address] [place] [address] Dr. David Zapata IG # 0.04 10e3/ul Critically high 0.00-0.03 [facility] Comment on above: Performed By: #### C BC #### [facility] [address] [place] [address] Dr. David Zapata IG % 0.5 % Normal 0.0-0.5 [facility] Comment on above: Performed By: #### C BC #### [facility] [address] [place] [address] Dr. David Zapata LYMPH # 2.3 103/ul Normal 1.2-3.8 [facility] Comment on above: Performed By: #### C BC #### [facility] [address] [place] [address] Dr. David Zapata Lymphocytes/100 WBC (Bld) 28.7 % Normal 20.5-60.0 [facility] Comment on above: Performed By: #### C BC #### [facility] [address] [place] [address] Dr. David Zapata MANUAL DIFF REQ NO Normal [facility] Comment on above: Performed By: #### C BC #### [facility] [address] [place] [address] Dr. David Zapata MCH (RBC) [Entitic mass] 29.2 pg Normal 26.7-34.0 [facility] Comment on above: Performed By: #### C BC #### [facility] [address] [place] [address] Dr. David Zapata MCHC (RBC) [Mass/Vol] 31.7 g/dL Normal 29.9-35.2 [facility] Comment on above: Performed By: #### C BC #### [facility] [address] [place] [address] Dr. David Zapata MCV (RBC) [Entitic vol] 92.1 fL Normal 81.0-99.0 [facility] Comment on above: Performed By: #### C BC #### [facility] [address] [place] [address] Dr. David Zapata MONO # 0.6 103/ul Normal 0.3-0.8 [facility] Comment on above: Performed By: #### C BC #### [facility] [address] [place] [address] Dr. David Zapata Monocytes/100 WBC (Bld) 7.3 % Normal 1.7-12.0 [facility] Comment on above: Performed By: #### C BC #### [facility] [address] [place] [address] Dr. David Zapata NEUT # 4.8 103/ul Normal 1.4-6.5 [facility] Comment on above: Performed By: #### C BC #### [facility] [address] [place] [address] Dr. David Zapata Neutrophils/100 WBC (Bld) 59.7 % Normal 43.0-75.0 [facility] Comment on above: Performed By: #### C BC #### [facility] [address] [place] [address] Dr. David Zapata Platelet mean volume (Bld) [Entitic vol] 9.4 fL Critically low 9.5-13.5 [facility] Comment on above: Performed By: #### C BC #### [facility] [address] [place] [address] Dr. David Zapata PLT 308 103/ul Normal 150-450 [facility] Comment on above: Performed By: #### C BC #### [facility] [address] [place] [address] Dr. David Zapata RBC 4.80 106/ul Normal 4.20-5.40 [facility] Comment on above: Performed By: #### C BC #### [facility] [address] [place] [address] Dr. David Zapata WBC 8.0 103/ul Normal 4.0-11.0 [facility] Comment on above: Performed By: #### C BC #### [facility] [address] [place] [address] Dr. David Zapata LIPID PROFILEon 11-18-2022 CHOL-HDL RATIO NORM SEE BELOW Normal [facility] Comment on above: Result Comment: 3.3 - 4.4 LOW RISK 4.4 - 7.1 AVERAGE RISK 7.1 - 11.0 MODERATE RISK >11.0 HIGH RISK Performed By: #### C MP, TSH, LIPID #### [facility] [address] [place] [address] Dr. David Zapata Cholesterol [Mass/Vol] 203 mg/dL Critically high <=200 [facility] Comment on above: Performed By: #### C MP, TSH, LIPID #### [facility] [address] [place] [address] Dr. David Zapata Cholesterol in HDL [Mass/Vol] 57 mg/dL Normal 40-60 [facility] Comment on above: Performed By: #### C MP, TSH, LIPID #### [facility] [address] [place] [address] Dr. aDvid Zapata Cholesterol in LDL [Mass/Vol] 120.4 mg/dL Normal [facility] Comment on above: Performed By: #### C MP, TSH, LIPID #### [facility] [address] [address] [address] David Zapata Cholesterol.total/C holesterol in HDL [Mass ratio] 3.6 {ratio} Normal [facility] Comment on above: Performed By: #### C MP, TSH, LIPID #### [facility] [address] [address] [address] David Zapata HDL NORMAL > or = 60 mg/dl - LO W CARDIOVASCULAR RISK <40 mg/dl - HIGH CARDIOVASCULAR RISK Normal [facility] Comment on above: Performed By: #### C MP, TSH, LIPID #### [facility] [address] [place] [address] Dr. aDvid Zapata LDL CALC NORMAL SEE BELOW Normal [facility] Comment on above: Result Comment: <100 mg/dl OPTIMAL 100 - 129 mg/dl NEAR OR ABOVE OPTIMAL 130 - 159 mg/dl BORDERLINE HIGH 160 - 189 mg/dl HIGH >190 mg/dl VERY HIGH Performed By: #### C MP, TSH, LIPID #### [facility] [address] [place] [address] Dr. David Zapata Triglyceride [Mass/Vol] 128 mg/dL Normal <=150 [facility] Comment on above: Performed By: #### C MP, TSH, LIPID #### [facility] [address] [place] [address] Dr. David Zapata VLDL CALC 25.6 mg/dL Normal [facility] Comment on above: Performed By: #### C MP, TSH, LIPID #### [facility] [address] [address] [address] David Zapata PROF 14(COMP METB)on 023 Albumin [Mass/Vol] 3.5 g/dL Normal 3.4-5.0 [facility] Comment on above: Performed By: #### C MP, TSH, LIPID #### [facility] [address] [place] [address] Dr. David Zapata Albumin/Globulin [Mass ratio] 1.0 {ratio} Normal [facility] Comment on above: Performed By: #### C MP, TSH, LIPID #### [facility] [address] [address] [address] David Zapata ALP [Catalytic activity/Vol] 68 U/L Normal 46-116 [facility] Comment on above: Performed By: #### C MP, TSH, LIPID #### [facility] [address] [address] [address] David Zapata ALT [Catalytic activity/Vol] 28 U/L Normal 14-59 [facility] Comment on above: Performed By: #### C MP, TSH, LIPID #### [facility] [address] [place] [address] Dr. David Zapata Anion gap [Moles/Vol] 11.3 mmol/L Normal [facility] Comment on above: Performed By: #### C MP, TSH, LIPID #### [facility] [address] [place] [address] Dr. David Zapata AST [Catalytic activity/Vol] 18 U/L Normal 15-37 [facility] Comment on above: Performed By: #### C MP, TSH, LIPID #### [facility] [address] [place] [address] Dr. David Zapata Bilirubin [Mass/Vol] 0.4 mg/dL Normal 0.2-1.0 [facility] Comment on above: Performed By: #### C MP, TSH, LIPID #### [facility] [address] [place] [address] Dr. David Zapata Calcium [Mass/Vol] 8.8 mg/dL Normal 8.5-10.1 [facility] Comment on above: Performed By: #### C MP, TSH, LIPID #### [facility] [address] [place] [address] Dr. David Zapata Chloride [Moles/Vol] 103 mmol/L Normal 98-107 [facility] Comment on above: Performed By: #### C MP, TSH, LIPID #### [facility] [address] [place] [address] Dr. David Zapata CO2 [Moles/Vol] 28.4 mmol/L Normal 21.0-32.0 [facility] Comment on above: Performed By: #### C MP, TSH, LIPID #### [facility] [address] [address] [address] David Zapata Creatinine [Mass/Vol] 0.96 mg/dL Normal 0.55-1.02 [facility] Comment on above: Performed By: #### C MP, TSH, LIPID #### [facility] [address] [address] [address] David Zapata EGFR-AF CONGOLESE >60 Normal >=60 [facility] Comment on above: Performed By: #### C MP, TSH, LIPID #### [facility] [address] [address] [address] David Zapata EGFR-NON AF CONGOLESE >60 Normal >=60 [facility] Comment on above: Performed By: #### C MP, TSH, LIPID #### [facility] [address] [address] [address] David Zapata Globulin (S) [Mass/Vol] 3.5 g/dL Normal [facility] Comment on above: Performed By: #### C MP, TSH, LIPID #### [facility] [address] [address] [address] David Zapata Glucose [Mass/Vol] 94 mg/dL Normal 74-106 [facility] Comment on above: Performed By: #### C MP, TSH, LIPID #### [facility] [address] [address] [address] David Zapata Potassium [Moles/Vol] 3.7 mmol/L Normal 3.5-5.1 [facility] Comment on above: Performed By: #### C MP, TSH, LIPID #### [facility] [address] [address] [address] David Zapata Protein [Mass/Vol] 7.0 g/dL Normal 6.4-8.2 [facility] Comment on above: Performed By: #### C MP, TSH, LIPID #### [facility] [address] [address] [address] David Zapata Sodium [Moles/Vol] 139 mmol/L Normal 136-145 [facility] Comment on above: Performed By: #### C MP, TSH, LIPID #### [facility] [address] [address] [address] David Zapata Urea nitrogen [Mass/Vol] 8.0 mg/dL Normal 7.0-18.0 [facility] Comment on above: Performed By: #### C MP, TSH, LIPID #### [facility] [address] [address] [address] David Zapata Urea nitrogen/Creatinine [Mass ratio] 8.3 mg/mg Normal [facility] Comment on above: Performed By: #### C MP, TSH, LIPID #### [facility] [address] [place] [address] Dr. David Zapata TSHon 11-18-2022 TSH 1.557 uIU/mL Normal 0.358-3.740 [facility] Comment on above: Performed By: #### C MP, TSH, LIPID #### [facility] [address] [address] [address] David Zapata VITAMIN B12on 11-18-2022 Cobalamin (Vitamin B12) [Mass/Vol] 247.0 pg/mL Normal 193.0-986.0 [facility] Comment on above: Performed By: #### V ITB12 #### [facility] [facility] [address] [place] [address] Dr. David Zapata NM STRESS/REST MULTIon 11-04 NM STRESS/REST MULTI Patient: ELVIA GUTIÉRREZ Exam Date: 11/04/2022 : 1975 Gender:F Ordering : DR VIDHI ANDERSON M.D. Admission #: [id number] Family : Order #: [id number] CLICK HERE TO VIEW EXAM RADIOLOGY REPORT [...] Ferguson M.D. on 11/05/2022 at 11:01 Normal [facility] MAMM SCREEN 3D AMANUEL CADon 07-10-2022 MAMM SCREEN 3D AMANUEL CAD Patient: ELVIA GUTIÉRREZ Exam Date: 07/10/2022 : 1975 Gender:F Ordering : DR PAT HUSTON M.D. Admission #: [id number] Family : Order #: [id number] CLICK HERE TO VIEW EXAM RADIOLOGY REPORT [...] No Treatments None Family Cancers None LOCATION: [facility] BREAST COMPOSITION: Heterogeneously dense,which may obscure [...] MD on 07/10/2022 at 08:04 Normal [facility] CBC AUTO DIFFon 06-24-2022 BASO # 0.0 103/ul Normal 0.0-0.1 [facility] Comment on above: Performed By: #### C BC #### [facility] [address] [place] [address] Dr. David Zapata Basophils/100 WBC (Bld) 0.5 % Normal 0.2-2.0 [facility] Comment on above: Performed By: #### C BC #### [facility] [address] [place] [address] Dr. David Zapata EO # 0.3 103/ul Normal 0.0-0.7 [facility] Comment on above: Performed By: #### C BC #### [facility] [address] [place] [address] Dr. David Zapata Eosinophils/100 WBC (Bld) 3.4 % Normal 0.9-7.0 [facility] Comment on above: Performed By: #### C BC #### [facility] [address] [place] [address] Dr. David Zapata Erythrocyte distribution width (RBC) [Ratio] 12.1 % Normal 11.0-15.0 [facility] Comment on above: Performed By: #### C BC #### [facility] [address] [place] [address] Dr. David Zapata Hematocrit (Bld) [Volume fraction] 40.6 % Normal 36.0-48.0 [facility] Comment on above: Performed By: #### C BC #### [facility] [address] [place] [address] Dr. David Zapata Hemoglobin (Bld) [Mass/Vol] 13.5 g/dL Normal 12.0-16.0 [facility] Comment on above: Performed By: #### C BC #### [facility] [address] [place] [address] Dr. David Zapata IG # 0.03 10e3/ul Normal 0.00-0.03 [facility] Comment on above: Performed By: #### C BC #### [facility] [address] [place] [address] Dr. David Zapata IG % 0.4 % Normal 0.0-0.5 [facility] Comment on above: Performed By: #### C BC #### [facility] [address] [place] [address] Dr. David Zapata LYMPH # 2.1 103/ul Normal 1.2-3.8 [facility] Comment on above: Performed By: #### C BC #### [facility] [address] [place] [address] Dr. David Zapata Lymphocytes/100 WBC (Bld) 28.6 % Normal 20.5-60.0 [facility] Comment on above: Performed By: #### C BC #### [facility] [address] [place] [address] Dr. David Zapata MANUAL DIFF REQ NO Normal [facility] Comment on above: Performed By: #### C BC #### [facility] [address] [place] [address] Dr. David Zapata MCH (RBC) [Entitic mass] 29.2 pg Normal 26.7-34.0 [facility] Comment on above: Performed By: #### C BC #### [facility] [address] [place] [address] Dr. David Zapata MCHC (RBC) [Mass/Vol] 33.3 g/dL Normal 29.9-35.2 [facility] Comment on above: Performed By: #### C BC #### [facility] [address] [place] [address] Dr. David Zapata MCV (RBC) [Entitic vol] 87.9 fL Normal 81.0-99.0 [facility] Comment on above: Performed By: #### C BC #### [facility] [address] [address] [address] David Zapata MONO # 0.6 103/ul Normal 0.3-0.8 [facility] Comment on above: Performed By: #### C BC #### [facility] [address] [address] [address] David Zapata Monocytes/100 WBC (Bld) 7.9 % Normal 1.7-12.0 [facility] Comment on above: Performed By: #### C BC #### [facility] [address] [place] [address] Dr. David Zapata NEUT # 4.3 103/ul Normal 1.4-6.5 [facility] Comment on above: Performed By: #### C BC #### [facility] [address] [place] [address] Dr. David Zapata Neutrophils/100 WBC (Bld) 59.2 % Normal 43.0-75.0 [facility] Comment on above: Performed By: #### C BC #### [facility] [address] [place] [address] Dr. David Zapata Platelet mean volume (Bld) [Entitic vol] 9.2 fL Critically low 9.5-13.5 [facility] Comment on above: Performed By: #### C BC #### [facility] [address] [place] [address] Dr. David Zapata PLT 280 103/ul Normal 150-450 [facility] Comment on above: Performed By: #### C BC #### [facility] [address] [place] [address] Dr. David Zapata RBC 4.62 106/ul Normal 4.20-5.40 [facility] Comment on above: Performed By: #### C BC #### [facility] [address] [place] [address] Dr. David Zapata WBC 7.3 103/ul Normal 4.0-11.0 [facility] Comment on above: Performed By: #### C BC #### [facility] [address] [address] [address] David Zapata GLYCOHEMOGLOBIN A1Con 2021 ADA RECOMMENDATION SEE BELOW Normal [facility] Comment on above: Result Comment: ADA RECOMMENDED LIMIT 4.0 - 6.0 ADA THERAPEUTIC TARGET < 7.0 ACTION SUGGESTED > 7.0 Performed By: #### C MP, TSH, LIPID #### [facility] [address] [address] [address] David Zapata Glucose [Mass/Vol] 103 mg/dL Normal [facility] Comment on above: Performed By: #### C MP, TSH, LIPID #### [facility] [address] [place] [address] Dr. David Zapata HbA1c (Bld) [Mass fraction] 5.2 % Normal 4.5-6.2 [facility] Comment on above: Performed By: #### C MP, TSH, LIPID #### [facility] [address] [place] [address] Dr. David Zapata LIPID PROFILEon 06-24-2022 CHOL-HDL RATIO NORM SEE BELOW Normal [facility] Comment on above: Result Comment: 3.3 - 4.4 LOW RISK 4.4 - 7.1 AVERAGE RISK 7.1 - 11.0 MODERATE RISK >11.0 HIGH RISK Performed By: #### C MP, TSH, LIPID #### [facility] [address] [place] [address] Dr. David Zapata Cholesterol [Mass/Vol] 217 mg/dL Critically high <=200 [facility] Comment on above: Performed By: #### C MP, TSH, LIPID #### [facility] [address] [place] [address] Dr. David Zapata Cholesterol in HDL [Mass/Vol] 50 mg/dL Normal 40-60 [facility] Comment on above: Performed By: #### C MP, TSH, LIPID #### [facility] [address] [place] [address] Dr. David Zapata Cholesterol in LDL [Mass/Vol] 137.6 mg/dL Normal [facility] Comment on above: Performed By: #### C MP, TSH, LIPID #### [facility] [address] [address] [address] David Zapata Cholesterol.total/C holesterol in HDL [Mass ratio] 4.3 {ratio} Normal [facility] Comment on above: Performed By: #### C MP, TSH, LIPID #### [facility] [address] [address] [address] David Zapata HDL NORMAL > or = 60 mg/dl - LO W CARDIOVASCULAR RISK <40 mg/dl - HIGH CARDIOVASCULAR RISK Normal [facility] Comment on above: Performed By: #### C MP, TSH, LIPID #### [facility] [address] [address] [address] David Zapata LDL CALC NORMAL SEE BELOW Normal [facility] Comment on above: Result Comment: <100 mg/dl OPTIMAL 100 - 129 mg/dl NEAR OR ABOVE OPTIMAL 130 - 159 mg/dl BORDERLINE HIGH 160 - 189 mg/dl HIGH >190 mg/dl VERY HIGH Performed By: #### C MP, TSH, LIPID #### [facility] [address] [address] [address] David Zapata Triglyceride [Mass/Vol] 147 mg/dL Normal <=150 [facility] Comment on above: Performed By: #### C MP, TSH, LIPID #### [facility] [address] [address] [address] David Zapata VLDL CALC 29.4 mg/dL Normal [facility] Comment on above: Performed By: #### C MP, TSH, LIPID #### [facility] [address] [address] [address] David Zapata PROF 14(COMP METB)on 022 Albumin [Mass/Vol] 3.6 g/dL Normal 3.4-5.0 [facility] Comment on above: Performed By: #### C MP, TSH, LIPID #### [facility] [address] [address] [address] David Zapata Albumin/Globulin [Mass ratio] 1.1 {ratio} Normal [facility] Comment on above: Performed By: #### C MP, TSH, LIPID #### [facility] [address] [address] [address] David Zapata ALP [Catalytic activity/Vol] 62 U/L Normal 46-116 [facility] Comment on above: Performed By: #### C MP, TSH, LIPID #### [facility] [address] [address] [address] David Zapata ALT [Catalytic activity/Vol] 21 U/L Normal 14-59 [facility] Comment on above: Performed By: #### C MP, TSH, LIPID #### [facility] [address] [address] [address] David Zapata Anion gap [Moles/Vol] 12.6 mmol/L Normal [facility] Comment on above: Performed By: #### C MP, TSH, LIPID #### [facility] [address] [address] [address] David Zapata AST [Catalytic activity/Vol] 14 U/L Critically low 15-37 [facility] Comment on above: Performed By: #### C MP, TSH, LIPID #### [facility] [address] [address] [address] David Zapata Bilirubin [Mass/Vol] 0.6 mg/dL Normal 0.2-1.0 [facility] Comment on above: Performed By: #### C MP, TSH, LIPID #### [facility] [address] [address] [address] David Zapata Calcium [Mass/Vol] 8.5 mg/dL Normal 8.5-10.1 [facility] Comment on above: Performed By: #### C MP, TSH, LIPID #### [facility] [address] [address] [address] David Zapata Chloride [Moles/Vol] 103 mmol/L Normal 98-107 [facility] Comment on above: Performed By: #### C MP, TSH, LIPID #### [facility] [address] [address] [address] David Zapata CO2 [Moles/Vol] 26.2 mmol/L Normal 21.0-32.0 [facility] Comment on above: Performed By: #### C MP, TSH, LIPID #### [facility] [address] [address] [address] David Zapata Creatinine [Mass/Vol] 0.94 mg/dL Normal 0.55-1.02 [facility] Comment on above: Performed By: #### C MP, TSH, LIPID #### [facility] [address] [address] [address] David Zapata EGFR-AF CONGOLESE >60 Normal >=60 [facility] Comment on above: Performed By: #### C MP, TSH, LIPID #### [facility] [address] [address] [address] David Zapata EGFR-NON AF CONGOLESE >60 Normal >=60 [facility] Comment on above: Performed By: #### C MP, TSH, LIPID #### [facility] [address] [address] [address] David Zapata Globulin (S) [Mass/Vol] 3.3 g/dL Normal [facility] Comment on above: Performed By: #### C MP, TSH, LIPID #### [facility] [address] [address] [address] David Zapata Glucose [Mass/Vol] 100 mg/dL Normal 74-106 [facility] Comment on above: Performed By: #### C MP, TSH, LIPID #### [facility] [address] [address] [address] David Zapata Potassium [Moles/Vol] 3.8 mmol/L Normal 3.5-5.1 [facility] Comment on above: Performed By: #### C MP, TSH, LIPID #### [facility] [address] [address] [address] David Zapata Protein [Mass/Vol] 6.9 g/dL Normal 6.4-8.2 [facility] Comment on above: Performed By: #### C MP, TSH, LIPID #### [facility] [address] [address] [address] David Zapata Sodium [Moles/Vol] 138 mmol/L Normal 136-145 [facility] Comment on above: Performed By: #### C MP, TSH, LIPID #### [facility] [address] [place], [place] [address] Dr. David Zapata Urea nitrogen [Mass/Vol] 7.0 mg/dL Normal 7.0-18.0 [facility] Comment on above: Performed By: #### C MP, TSH, LIPID #### [facility] [address] [address] [address] David Zapata Urea nitrogen/Creatinine [Mass ratio] 7.4 mg/mg Normal [facility] Comment on above: Performed By: #### C MP, TSH, LIPID #### [facility] [address] [address] [address] David Zapata TSHon 06-24-2022 TSH 1.434 uIU/mL Normal 0.358-3.740 [facility] Comment on above: Performed By: #### C MP, TSH, LIPID #### [facility] [address] [address] [address] David Zapata MRI BRAIN WO W [...] by: EDILSON FERGUSON Date: 2022-06-10 06:40 Normal [facility] BASIC METABOLIC PANELon 05-26 Calcium [Mass/Vol] 8.6 mg/dL Normal 8.6-10.3 [facility] Comment on above: Order Comment: No: D o not add to previous draw Performed By: #### 5 6101, [id number] #### [facility] [address] [place] [address], [place] Chloride [Moles/Vol] 106 mmol/L Normal 98-107 [facility] Comment on above: Order Comment: No: D o not add to previous draw Performed By: #### 5 6101, 52827 #### [facility] [address] [place] [address], [place] CO2 [Moles/Vol] 24 mmol/L Normal 21-31 [facility] Comment on above: Order Comment: No: D o not add to previous draw Performed By: #### 5 6101, 66864 #### [facility] [address] [place] [address], [place] Creatinine [Mass/Vol] 0.90 mg/dL Normal 0.60-1.20 [facility] Comment on above: Order Comment: No: D o not add to previous draw Performed By: #### 5 6101, 19011 #### [facility] [address] [place] [address], [place] GFR/1.73 sq M predicted among blacks MDRD (S/P/Bld) [Vol rate/Area] mL/min/{1.73_m2} Normal >60 [facility] Comment on above: Order Comment: No: D o not add to previous draw Performed By: #### 5 6101, 04972 #### [facility] [address] [place] [address], [place] GFR/1.73 sq M predicted among non-blacks MDRD (S/P/Bld) [Vol rate/Area] mL/min/{1.73_m2} Normal >60 [facility] Comment on above: Order Comment: No: D o not add to previous draw Performed By: #### 5 6101, 64446 #### [facility] [address] [place] [address], [place] Glucose [Mass/Vol] 97 mg/dL Normal 70-100 [facility] Comment on above: Order Comment: No: D o not add to previous draw Performed By: #### 5 610, 48863 #### [facility] [address] [place] [address], [place] Potassium [Moles/Vol] 3.9 mmol/L Normal 3.5-5.1 [facility] Comment on above: Order Comment: No: D o not add to previous draw Performed By: #### 5 610, 08986 #### [facility] [address] [place] [address], [place] Sodium [Moles/Vol] 136 mmol/L Normal 136-145 [facility] Comment on above: Order Comment: No: D o not add to previous draw Performed By: #### 5 610, 23779 #### [facility] [address] [place] [address], [place] Urea nitrogen [Mass/Vol] 11 mg/dL Normal 7-25 [facility] Comment on above: Order Comment: No: D o not add to previous draw Performed By: #### 5 610, 82195 #### [facility] [address] [place] [address], [place] CBC COMPLETE BLOOD COUNTon 0 - Erythrocyte distribution width (RBC) [Ratio] 12.0 % Normal 11.5-15.0 [facility] Comment on above: Order Comment: No: D o not add to previous draw Performed By: #### 5 0608 #### [facility] [address] [place] [address], [facility] Hematocrit (Bld) [Volume fraction] 42.7 % Normal 36.0-45.0 [facility] Comment on above: Order Comment: No: D o not add to previous draw Performed By: #### 5 0608 #### [facility] [address] [place] [address], [facility] Hemoglobin (Bld) [Mass/Vol] 13.9 g/dL Normal 12.0-15.0 [facility] Comment on above: Order Comment: No: D o not add to previous draw Performed By: #### 5 0608 #### [facility] [address] [place] [address], [facility] MCH (RBC) [Entitic mass] 29.6 pg Normal 27.0-33.0 [facility] Comment on above: Order Comment: No: D o not add to previous draw Performed By: #### 5 0608 #### [facility] [address] [place] [address], [facility] MCHC (RBC) [Mass/Vol] 32.6 g/dL Normal 32.0-35.0 [facility] Comment on above: Order Comment: No: D o not add to previous draw Performed By: #### 5 0608 #### [facility] [address] [place] [address], [facility] MCV (RBC) [Entitic vol] 91.0 fL Normal 82.0-98.0 [facility] Comment on above: Order Comment: No: D o not add to previous draw Performed By: #### 5 0608 #### [facility] [address] [place] [id number], [facility] Nucleated RBC/100 WBC (Bld) [Ratio] 0 % Normal 0-0 [facility] Comment on above: Order Comment: No: D o not add to previous draw Performed By: #### 5 0608 #### [facility] [address] PLAT CNT 233 10*3/uL Normal 150-400 [facility] [place] Comment on above: Order Comment: No: D o not add to previous draw Performed By: #### 5 0608 #### [facility] [address] RBC (Bld) [#/Vol] 4.69 10*6/uL Normal 3.80-5.00 [facility] Comment on above: Order Comment: No: D o not add to previous draw Performed By: #### 5 0608 #### [address] WBC (Bld) [#/Vol] 8.19 10*3/uL Normal 4.00-10.60 [facility] Comment on above: Order Comment: No: D o not add to previous draw Performed By: #### 5 0608 #### [address] Cardiovascular Lab Reporton 06-17-2019 Cardiovascular Lab Report [facility] Patient Name: [facility] Alexy MR #: [id number] Department of Physician: Mike Polanco M.D. Division of Service Date: 06/16/2019 Cardiology Birthdate: 1975 Adult Cardiovascular Room #: 3AB [id number] [address] [place] [address] Cardiovascular Laboratory Report FINAL IMPRESSIONS: 1. Angiographically [...] the left radial artery was obtained. A 6-Occitan glide sheath was inserted without difficulty. Bilateral [...] Anderson M.D. Date Trans: 06/17/2019 04:09 A/adela [id number] cc: Pat Huston M.D. [address] [place] [address] Amos Vazquez M.D. [address] [facility] [id number] Normal [facility] HEMOGLOBIN A1Con 06-17-2019 HbA1c (Bld) [Mass fraction] 4.8 % Normal 4.0-6.0 [facility] Comment on above: Order Comment: Yes: Add to Previous draw if able Performed By: #### 5 6101, 65442 #### [facility] [address] [place] [address], [facility] HbA1c (Bld) [Mass fraction] 91 mg/dL Normal 70-126 [facility] Comment on above: Order Comment: Yes: Add to Previous draw if able Performed By: #### 5 6101, 97708 #### [facility] [address] [place] [address], [facility] LIPID PROFILEon 06-17-2019 Cholesterol [Mass/Vol] 209 mg/dL High 120-200 [facility] Comment on above: Order Comment: Yes: Add to Previous draw if able Result Comment: CHOL ESTEROL REFERENCE RANGE: 20 YEARS AND OLDER CARDIOVASCULAR RISK Less than 200 mg/dl Low Risk 200 to 239 mg/dl Borderline Risk 240 mg/dl and greater High Risk Performed By: #### 1 0070, 87462, 39668, 53463 #### [facility] [address] [place] [address], [facility] Cholesterol in HDL [Mass/Vol] 35 mg/dL Normal 23-92 [facility] Comment on above: Order Comment: Yes: Add to Previous draw if able Result Comment: Slig ht variation in normal range could be due to gender and/or age. HDL CHOLESTEROL REFERENCE RANGE: 20 years and older Cardiovascular Risk > or =60 mg/dL Desirable 40 TO 59 mg/dL Low Risk <40 mg/dL High Risk Performed By: #### 1 0070, 89174, 33916, 58639 #### [facility] [address] [place] [address], [facility] Cholesterol in LDL [Mass/Vol] 139 mg/dL High 0-130 [facility] Comment on above: Order Comment: Yes: Add to Previous draw if able Result Comment: LDL IS A CALCULATION LDL IS ONLY VALID IF THE TRIG IS LESS THAN 400. Performed By: #### 1 0070, 00260, 84294, 70670 #### [facility] [address] [place] [address], [facility] Cholesterol.total/C holesterol in HDL [Mass ratio] 6.0 {ratio} High 0.0-4.5 [facility] Comment on above: Order Comment: Yes: Add to Previous draw if able Performed By: #### 1 0070, 74866, 15102, 46780 #### [facility] [address] [place] [address], [facility] NON-HDL CHOLESTEROL 174 mg/dL Normal [facility] Comment on above: Order Comment: Yes: Add to Previous draw if able Performed By: #### 1 0070, 46264, 55482, 01760 #### [facility] [address] [place] [address], [place] Triglyceride [Mass/Vol] 174 mg/dL High 40-149 [facility] Comment on above: Order Comment: Yes: Add to Previous draw if able Result Comment: TRIG LYCERIDE REFERENCE RANGE: 20 YEARS AND OLDER CARDIOVASCULAR RISK LESS THAN 150 mg/dl LOW RISK 150 TO 199 mg/dl BORDERLINE RISK 200 mg/dl AND GREATER HIGH RISK Performed By: #### 1 0070, 84980, 04793, 03714 #### [facility] [address] VLDL CHOL 35 mg/dL Normal 0-40 [facility] Comment on above: Order Comment: Yes: Add to Previous draw if able Performed By: #### 1 0070, 18551, 72668, 30050 #### [facility] [address] [place] [address], [facility] MAGNESIUM BLOODon 06-17-2019 Magnesium [Mass/Vol] 2.2 mg/dL Normal 1.9-2.7 [facility] Comment on above: Order Comment: No: D o not add to previous draw Performed By: #### 1 0070, 30784, 33071, 49325 #### [facility] [address] PHOSPHORUS BLOODon 9 Phosphate [Mass/Vol] 4.3 mg/dL Normal 2.5-5.0 [facility] Comment on above: Order Comment: No: D o not add to previous draw Performed By: #### 5 6101, 44425 #### [facility] [address] [facility] [address] APTTon 06-16-2019 aPTT Coag (Bld) [Time] 27.3 s Normal 25.0-35.0 [facility] Comment on above: Result Comment: ALL [...] THIS PURPOSE. Performed By: #### 5 6101, 83186 #### [facility] [address] BASIC METABOLIC PANELon 05-26 Calcium [Mass/Vol] 9.3 mg/dL Normal 8.6-10.3 [facility] Comment on above: Order Comment: No: D o not add to previous draw Performed By: #### 1 0070, 46269, 75852, 30623, 32731 #### [facility] [address] [place] [address], [place] Chloride [Moles/Vol] 105 mmol/L Normal 98-107 [facility] Comment on above: Order Comment: No: D o not add to previous draw Performed By: #### 1 0070, 77082, 41648, 96362, 23920 #### [facility] [address] [place] [address], [place] CO2 [Moles/Vol] 23 mmol/L Normal 21-31 [facility] Comment on above: Order Comment: No: D o not add to previous draw Performed By: #### 1 0070, 24661, 95698, 47955, 58903 #### [facility] [address] [place] [address], [place] Creatinine [Mass/Vol] 0.85 mg/dL Normal 0.60-1.20 [facility] Comment on above: Order Comment: No: D o not add to previous draw Performed By: #### 1 0070, 51698, 02845, 23543, 03470 #### [facility] [address] [place] [address], [place] GFR/1.73 sq M predicted among blacks MDRD (S/P/Bld) [Vol rate/Area] mL/min/{1.73_m2} Normal >60 [facility] Comment on above: Order Comment: No: D o not add to previous draw Performed By: #### 1 0070, 70455, 13128, 79713, 87713 #### [facility] [address] [place] [address], [place] GFR/1.73 sq M predicted among non-blacks MDRD (S/P/Bld) [Vol rate/Area] mL/min/{1.73_m2} Normal >60 [facility] Comment on above: Order Comment: No: D o not add to previous draw Performed By: #### 1 0070, 82526, 80535, 80569, 02474 #### [facility] [address] [place] [address], [place] Glucose [Mass/Vol] 91 mg/dL Normal 70-100 [facility] Comment on above: Order Comment: No: D o not add to previous draw Performed By: #### 1 0070, 78231, 61491, 43311, 59082 #### [facility] [address] [place] [address], [place] Potassium [Moles/Vol] 3.9 mmol/L Normal 3.5-5.1 [facility] Comment on above: Order Comment: No: D o not add to previous draw Performed By: #### 1 0070, 08505, 53241, 57594, 54693 #### [facility] [address] [place] [address], [facility] Sodium [Moles/Vol] 136 mmol/L Normal 136-145 [facility] Comment on above: Order Comment: No: D o not add to previous draw Performed By: #### 1 0070, 81381, 82197, 65943, 19294 #### [facility] [address] [place] [address], [place] Urea nitrogen [Mass/Vol] 10 mg/dL Normal 7-25 [facility] Comment on above: Order Comment: No: D o not add to previous draw Performed By: #### 1 0070, 75889, 53906, 93260, 09889 #### [facility] [address] [place] [address], [place] FREE T3on 06-16-2019 Free T3 [Mass/Vol] 2.6 pg/mL Normal 2.5-3.9 [facility] Comment on above: Performed By: #### 1 0070, 57522, 33491, 32843, 59224 #### [facility] [address] [place] [address], [facility] FREE T4on 06-16-2019 Free T4 [Mass/Vol] 0.73 ng/dL Normal 0.71-1.85 [facility] Comment on above: Performed By: #### 1 0070, 97772, 44805, 56135, 47469 #### [facility] [address] [place] [address], [facility] MAGNESIUM BLOODon 06-16-2019 Magnesium [Mass/Vol] 2.2 mg/dL Normal 1.9-2.7 [facility] Comment on above: Order Comment: No: D o not add to previous draw Miss Performed By: #### 1 0070, 30043, 86408, 75939, 11671 #### [facility] [address] PROTHROMBIN TIMEon 9 INR Coag (PPP) [Relative time] 1.06 {INR} Normal 0.91-1.16 [facility] Comment on above: Result Comment: ACCC [...] RANGE. CHEST 1995;108:231S-246S. Performed By: #### 5 6498, 03077 #### [facility] [address] [place] [address], [facility] PT Coag (PPP) [Time] 13.8 s Normal 12.3-14.8 [facility] Comment on above: Result Comment: ALL RESULTS MUST BE INTERPRETED WITH RESPECT TO BLOOD DRAWING ARTIFACT OR DILUTION ERROR OF ANTICOAGULANT AT THE TIME OF SAMPLING. Performed By: #### 5 6101, 57495 #### [facility] [address] [place] [address], [facility] TSH3on 06-16-2019 TSH 3RD GENERATION 1.94 uIU/mL Normal 0.34-5.60 [facility] Comment on above: Performed By: #### 1 0070, 14131, 83775, 30708, 73576 #### [facility] [address] [place] [address], [facility] Vital Signs Date Time Vital Sign Value Performing Clinician Faci lity 08-23-2024 11:16-0400 Body height 165.1 cm [facility] 08-23-2024 11:16-0400 Body mass index (BMI) [Ratio] 35.4 kg/m2 [facility] 08-23-2024 11:16-0400 Body weight 96.61 kg [facility] 08-23-2024 11:16-0400 Diastolic blood pressure 69 mm[Hg] [facility] 08-23-2024 11:16-0400 Heart rate 65 /min [facility] 08-23-2024 11:16-0400 Systolic blood pressure 100 mm[Hg] [facility] 09-07-2023 10:29-0500 Body height 165.1 cm MD Pat Huston Work Phone: [facility] 09-07-2023 10:29-050 Body weight 97.52 kg MD Pat Huston Work Phone: [facility] Encounters Encounter Date Encounter Type Care Provider Facility Start: 08-23-2024 Patient encounter status [facility] Start: 08-23-2024 End: 08-23-[address] [facility] Work Phone: Start: 08-23-2024 End: 08-23-2024 Patient encounter procedure [facility] Physician [facility] Work Phone: Start: 04-11-2024 End: 04-11-2024 ambulatory DALTON OROZCO [facility] Start: 02-28-2024 End: 02-28-2024 ambulatory HARLAN PETTY Not Available Start: 02-21-2024 End: 02-21-2024 ambulatory [facility] Start: 12-22-2023 End: 12-22-2023 ambulatory [facility] Start: 09-07-2023 Telephone encounter Pat Huston [facility] Start: 09-07-2023 End: 09-07-2023 ambulatory Pat Huston Facility:[facility] Start: 09-07-2023 End: 09-07-2023 ambulatory MD Pat Huston Work Phone: [facility] Work Phone: Start: 09-07-2023 End: 09-07-2023 Patient encounter procedure MD Pat Huston Work Phone: [facility] [place] Work Phone: Start: 08-06-2023 End: 08-06-2023 ambulatory Pat Huston Other [facility] Other Start: 08-06-2023 Telephone encounter Pat Huston [facility] Start: 07-27-2023 End: 07-27-2023 ambulatory Pat Huston Other [facility] Other Start: 07-27-2023 Telephone encounter Pat Huston [facility] Start: 07-13-2023 End: 07-13-2023 ambulatory Pat Huston Other [facility] Other Start: 07-13-2023 Telephone encounter Pat Huston [facility] Start: 07-06-2023 End: 07-06-2023 ambulatory Pat Huston Other [facility] Other Start: 07-06-2023 Telephone encounter Pat Huston [facility] Start: 04-22-2023 ambulatory Kevon Serna acility:[facility] Start: 03-11-[address] VIDHI ANDERSON Facili ty:[facility] Start: 02-16-2023 End: 02-17-[address] JL REAL Facility:[facility] Start: 02-11-2023 End: 02-12-[address] VIDHI ANDERSON Facility:[facility] Start: 11-20-2022 Encounter for genera l adult medical examination without abnormal findings DR PAT HUSTON [facility] Start: 11-19-2022 End: 11-19-2022 ambulatory Pat Huston Other [facility] Other Start: 11-19-2022 Telephone encounter Pat Huston [facility] Start: 11-18-2022 End: 11-19-[address] PAT HUSTON Facility:[facility] Start: 11-18-2022 End: 11-19-2022 Encounter for general adult medical examination without abnormal findings DR PAT HUSTON Facility:[facility] Start: 11-04-2022 End: 11-05-[address] VIDHI ANDERSON Facility:[facility] Start: 07-10-2022 End: 07-11-[address] PAT HUSTON Facility:[facility] Start: 06-26-2022 Adult health examination Vielka Huston Other [facility] Other Start: 06-26-2022 Encounter for genera l adult medical examination without abnormal findings Pat Huston Other [facility] Other Start: 06-24-2022 End: 06-25-[address] PAT HUSTON Facility:[facility] Start: 06-09-2022 End: 06-10-[address] DOCTOR MEDINA Facility:[facility] Start: 06-16-2019 End: 06-17-2019 Patient encounter procedure ALESSANDRO GARRIDO Facility:[facility] Start: 10-27-2016 Gynecological examination normal Pat Huston Other [facility] Other Procedures Date Procedure Procedure Detail Performing [...] lic 2000 panel - Serum or Plasma [facility] enter XR Pelvis and Hip - bilateral Views [facility] Payers Date Payer Category Payer Self-pay [id number] 2022 Unknown [id number] 2019 Unknown [id number] . [id number] 1975 Unknown [id number] 2.16.8 [id number] 1975 Unknown [id number] 2.16.84 [id number] 1975 Unknown [id number] 2.16.84 [id number] 1977 Unknown [id number] 2.16.84 [id number] 1977 Unknown [id number] 2.16.84 [id number] 1977 Unknown [id number] 2.16.84 0.1.074291.3.579.2.593 1977 Unknown [id number] 2.16.84 0.1.258468.3.579.2.593 1977 Unknown [id number] 2.16.84 0.1.431505.3.579.2.593 1975 Unknown [id number] 2.16.84 [id number] 1975 Unknown [id number] 2.16.84 [id number] 1957 Self-pay [id number] Unknown [id number] Unknown Other1 (STD) [id number] Unknown [id number] 2.16.8 [id number] Unknown [id number] 2.16.8 [id number] Social History Date Type Detail Facility Unknown if ever smoked [facility] Other Sex Assigned At Sex Assigned At Bir th [facility] Other Start: 1975 Sex Assigned At Female [facility] Start: 04-20-2022 Tobacco smoking status NHIS Never smoked tobacco (finding) [facility] Clinical Notes 11-04-2022 to 04-11-2024 Note Date & Type Note Facility 04-11-2024 Note [place] [facility] [place] [facility] Reason for visit: HPI: Elvia Gutiérrez [...] Paroxysmal tachycardia (CMS/HCC) 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 [facility] 02-21-2024 Note [facility] Card[facility] Clinic Note Chief Complaint: Patient here [...] tachycardia (CMS/HCC), Prinzmetal angina (CMS/HCC), and WPW (Stjpt-Goyikwsga-Mklxu syndrome). Surgical History She has a past [...] less than 1%. (more content not included)... [facility] 12-22-2023 Note [facility] Cardiology Clinic Note Chief Complaint: Patient here [...] tachycardia (CMS/HCC), Prinzmetal angina (CMS/HCC), and WPW (Nmkfs-Uzyqbytfq-Hnful syndrome). 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 [facility] 07-27-2023 Evaluation note Encounter Date Diagnosis Assessment Notes Jul, Abnormal mammogram (ICD-10 - R92.8) [facility] Other 09-19-2023 Evaluation note* Encounter Date Diagnosis Assessment Notes Treatment Notes Treatment Clinical Notes Jun, Abnormal mammogram of right breast (ICD-10 - R92.8) [facility] Other 09-12-2023 Evaluation note* Encounter Date Diagnosis Assessment Notes Treatment Notes Treatment Clinical Notes Jun, Screening mammogram for breast cancer (ICD-10 - Z12.31) [facility] Other 01-11-2023 NoteCARDIAC STRESS TEST Requesting Physician: [...] further information. 7. 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 Name: Elvia Gutiérrez Admitted: 06/16/2019 Discharged: 06/17/2019 Date of : 1975 Physician: Alessandro Garrido MD DISCHARGE SUMMARY PRIMARY DIAGNOSES: 1. Typical chest pain with abnormal stress test. Post heart catheterization, which demonstrated no significant coronary artery stenosis. 2. Major depressive disorder. 3. Lower end of normal T4 with normal TSH. 4. Fysug-Xymlglzbe-Hmsgm. HOSPITAL COURSE: The patient is a 43-year-old [...] section and content) DATE CREATED AUTHOR 09/18/2019 [facility] DATE CREATED AUTHOR AUTHOR'S ORGANIZ ATION 03/07/2023 [facility] DATE CREATED AUTHOR AUTHOR'S ORGANIZ ATION 10/14/2023 [facility] DATE CREATED AUTHOR AUTHOR'S ORGANIZ ATION 02/29/2024 [facility] DATE CREATED AUTHOR AUTHOR'S ORGANIZ ATION 07/25/2024 [facility] REASON FOR VISIT (unrecogniz ed section and [...] BE BASED ON THE PRIMARY CLINICAL RECORDS. [facility]. provides no warranty or guarantee of the accuracy or completeness of information in this document.
--- NOTE | 2024-08-24 07:48 | XR_ITS ---
The [address] [address] Patient Name: ELVIA GUTIÉRREZ MRN: [id number] date: 1975 Sex: F Assigned Patient Location: [facility] Current Patient Location: [facility] Accession/Order Number: [id number] Exam Date: 08/24/2024 07:50 Report Date: 08/24/2024 09:03 At the request of: TESS HUSTON Procedure: XR hip AMANUEL EXAMINATION: XR hip AMANUEL HISTORY: Bilateral Hip Pain COMPARISON: No relevant comparison available. FINDINGS: RIGHT FINDINGS: BONES: No acute fracture or dislocation. Minimal degenerative changes with marginal osteophyte formation SOFT TISSUES: Negative. No visible soft tissue swelling. OTHER: Negative. LEFT FINDINGS: BONES: No acute fracture or dislocation. Minimal degenerative changes with marginal osteophyte formation SOFT TISSUES: Negative. No visible soft tissue swelling. OTHER: Negative. XR/XR hip AMANUEL IMPRESSION: Minimal bilateral degenerative changes Electronically authenticated by: NILESH NATHAN Date: 08/24/2024 09:03
== END 2024-08-24 07:24 | disposition home or self-care (01) ==
PROVIDERS: PCP Family Medicine; Visit Provider Family Medicine
DX: Z00.00 Encounter for general adult medical examination without abnormal findings (principal); M25.551 Pain in right hip; M25.552 Pain in left hip
CPT/HCPCS: 36415; 73522; 80053; 80061; 83036; 84443; 85025

== ENCOUNTER 2025-01-18 12:20 | Outpatient (OUT) | payer BC, SELFPAY ==
[2025-01-18 12:29] LABS: Hemoglobin 13.5 g/dL (12.0-16.0)
--- NOTE | 2025-01-18 12:38 | XR_ITS ---
The [address] [address] Patient Name: ELVIA GUTIÉRREZ MRN: [id number] date: 1975 Sex: F Assigned Patient Location: [facility] Current Patient Location: [facility] Accession/Order Number: [id number] Exam Date: 01/18/2025 13:05 Report Date: 01/18/2025 13:06 At the request of: MARYANA GONSALVES DO Procedure: XR chest 2V Plain film chest 2 view HISTORY: Abnormal pulmonary function study COMPARISON: 08/06/2020 FINDINGS: SUPPORT DEVICES: None POSTSURGICAL CHANGES: None HEART: Within normal limits PULMONARY SIN: Within normal limits MEDIASTINUM: Unremarkable LUNGS AND PLEURA: No acute lung process, pleural effusion or pneumothorax identified. BONY STRUCTURES: Intact ADDITIONAL FINDINGS None XR/XR chest 2V IMPRESSION: No acute process. Impression dictated by: Sina Ruiz M.D.01/18/2025 1:06 PM Dictation Location: [place] [address] Electronically authenticated by: [id number] Y Date: 01/18/2025 13:06
== END 2025-01-18 12:21 | disposition home or self-care (01) ==
LOC: RAD 12:20
PROVIDERS: PCP Family Medicine; Visit Provider Internal Medicine
DX: R94.2 Abnormal results of pulmonary function studies (principal); Q21.12 Patent foramen ovale
CPT/HCPCS: 36415; 71046; 85018; 94010; 94060; 94726; 94729

== ENCOUNTER 2025-05-28 09:21 | Outpatient (OUT) | payer BC, SELFPAY ==
--- NOTE | 2025-05-28 08:20 | NM_ITS ---
Patient Name: ELVIA GUTIÉRREZ MR#: [id number] : 1975 Exam Date: 05/28/2025 Ordering Doctor: DR CECILIA RAMOS M.D. RADIOLOGY REPORT PROCEDURE: NM JAVON PERF SPECT REST STR COMPARISON: None. INDICATIONS: CHEST PAIN, SHORTNESS OF BREATH, PALPITATIONS TECHNIQUE: Exam Description: Rest/Stress one day protocol gated SPECT Rest Imagin.6 mCi Tc-99m Cardiolite IV on 05/28/2025 Stress Imaging 28.0 mCi Tc-99m Cardiolite IV on 05/28/2025 Exercise Protocol: Flo Heart Rate (bpm): Rest: 72 Max: 153 PMHR: 88 Blood Pressure: Rest: 132/82 Max: 160/88 Exercise Time: Minutes: 7 Seconds: 27 Stage Reached: Stage: 3 Mets 10.1 Symptoms: Rest and peak stress ECG findings were pending and the EKG portion of the study was pending per attending physician [facility] . For more details please see separate cardiac stress test report. FINDINGS: QUALITY OF STUDY: Fair PERFUSION DEFECT: None LOCATION: SIZE: SEVERITY: TYPE: WALL MOTION: LV SIZE: 62 mL. TID / TCD: 0.7 LVEF: Calculated EF 74%. SUMMARY: Normal myocardial perfusion imaging study CONCLUSION: Normal myocardial perfusion nuclear stress test without evidence of ischemia or infarction Normal left ventricular systolic function, ejection fraction 74% No transient ischemic dilatation, TID 0.7 EKG portion of stress test is reported separately Dictated by: Ludwig Santos MD on 06/01/2025 at 17:44 Approved by: Ludwig Santos MD on 06/01/2025 at 17:47
--- NOTE | 2025-05-28 10:35 | PC.NURSE ---
Nursing Note Cardiac Stress Test Reviewed: Medication, allergies and patient history reviewed. Stress Test: [x ] Patient tolerated stress test well. [ ] Patient unable to tolerate walking on treadmill. Switched to Lexiscan stress test. [x ] No chest pain noted per patient [ ] Chest pain that resolved prior to leaving stress lab. [ ] No dyspnea noted. [x ] Dyspnea that resolved prior to leaving stress lab. [ x] Patient left stress lab asymptomatic and hemodynamically stable. [ ] Patient taken to the Emergency Room due to non-resolving symptoms following stress test. [x ] Patient achieved target heart rate. [ ] Patient unable to achieve target heart rate. [ ] Aminophylline administered as reversal agent to Lexiscan (Regadenoson). [ ] Nitro administered. Nursing Comments: Pt had Cardio Lite test and tolerated well. Pt had no CP but had some SOB which she states is normal for her with activity. Pt ambulated to cafeteria for breakfast prior to second set of images.
--- NOTE | 2025-05-28 18:14 | PM.STRESS ---
Stress Test Stress Test Requesting physician: Vidhi Anderson Procedure: This was a Treadmill stress test with myocardial perfusion imaging performed at the [facility] on 05/28/2025. Intravenous line was secured. The patient was attached to electrocardiographic monitoring. Baseline vital signs and ECG were obtained. The patient exercised on the treadmill according to the Flo protocol. Cardiolite was administered at peak exercise. The patient then went on to obtain myocardial perfusion imaging. Exercise time was 7 minutes and 27 seconds. The patient reached stage 3 of the Flo protocol and achieved 10.10 METS. Resting heart rate was 72 bpm and peak heart rate was 153 bpm representing 88% of maximal predicted heart rate. Resting blood pressure was 132/82 and peak blood pressure was 160/88. General Information: Reason for Stress Test: Chest pain, shortness of breath, palpitations. Cardiac History and Risk Factors: None. Resting 12 - Lead Electrocardiogram: Normal sinus rhythm, normal ECG. Stress Test: Protocol: Treadmill exercise, Flo protocol. Exercise Capacity: Good. Blood Pressure Response: Resting hypertension, appropriate blood pressure response to exercise. Rhythm: Sinus rhythm with no arrhythmias. ST - Response: No ischemic ST changes seen. Patient Response: Shortness of breath, no chest pain. Interpretation: 1. No evidence of ischemic ST changes seen following treadmill exercise. 2. Pandya treadmill score of +7 is associated with low risk for long-term cardiac events. 3. Myocardial perfusion images will be reported separately.
== END 2025-05-28 09:22 | disposition home or self-care (01) ==
PROVIDERS: PCP Family Medicine; Visit Provider Internal Medicine Interventional Cardiology
DX: R07.9 Chest pain, unspecified (principal); R06.02 Shortness of breath
CPT/HCPCS: 78452; 93017; A9500

== ENCOUNTER 2025-06-29 09:00 | Outpatient (OUT) | payer BC, SELFPAY ==
--- NOTE | 2025-06-29 09:02 | MR_ITS ---
[address] [address] Patient Name: ELVIA GUTIÉRREZ MRN: [id number] date: 1975 Sex: F Assigned Patient Location: MRI Current Patient Location: MRI Accession/Order Number: [id number] Exam Date: 06/29/2025 09:10 Report Date: 06/29/2025 15:25 At the request of: HARLAN PETTY NP Procedure: MR head/brain wo/w con MR head/brain wo/w con 06/29/2025 9:55 AM SIGN AND SYMPTOMS: ^Word Finding Difficulty, Abnormal MRI Imaging Brain PROTOCOL: Multiplanar multisequence MR images of the brain with and without IV contrast CONTRAST: 20 mL of intravenous Dotarem COMPARISON: 03/16/2024 FINDINGS: Extra axial spaces: Age appropriate. Hemorrhage: None. Ventricular system: Within normal limits. Basal cisterns: Within normal limits and not effaced. Cerebral parenchyma: There are a few nonspecific T2 and FLAIR hyperintense foci in periventricular and subcortical white matter. No abnormal postcontrast enhancement. Midline shift: None.. Cerebellum: Within normal limits. Brainstem: Nonspecific T2 and FLAIR hyperintense signal is noted in the pontine white matter. OTHER: Calvarium: Normal marrow signal. Vascular system: Satisfactory flow voids within the anterior and posterior circulation. Visualized Paranasal sinuses: Within normal limits. Visualized Orbits: Within normal limits. Visualized upper cervical spine: Within normal limits. Sella and skull base: Within normal limits. MR/MR head/brain wo/w con IMPRESSION: No acute intracranial pathology or abnormal postcontrast enhancement. There are nonspecific foci of T2 and FLAIR hyperintense signal in the periventricular white matter, subcortical white matter, and pontine white matter. 60 unchanged when compared prior exam. Impression dictated by: Tadeo Das M.D. 06/29/2025 3:25 PM Dictation Location: [place] [address] Electronically authenticated by: [id number] Y Date: 06/29/2025 15:25
--- OUTSIDE RECORDS SUMMARY | 2025-06-29 09:17 | XMS_ITS | CCD ---
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 Name Role Phone ALESSANDRO GARRIDO Admitting Unavailable ALESSANDRO GARRIDO Attending Unavailable PAT HUSTON Referring Unavailable ROBEL, PAT Primary Care Unavailable Pat Huston Unavailable RBOEL, DR PAT Kumari Admitting Unavailable HUSTON, DR PAT Kumari Attending Unavailable HUSTON, DR PAT Kumari Primary Care Unavailable [place], DR NILESH Foy Consulting Unavailable HUSTON, DR [...] Care Provider MD Pat Huston Attending Provider [phone] Pat Huston Admitting Unavailable Pat Huston Primary Care Unavailable Pat Huston Attending Unavailable Kevon Samuel Admitting Unavailab Kevon Morejon Attending Unavailab Pat Mcgovern Primary Care Unavailable Pat Huston MD Primary Care Provider Jl Real DO Unavailable HARLAN NIÑO Attending Unavailable HARLAN NIÑO Attending Unavailable Pat Huston MD Primary Care Provider [phone] Harlan Niño APRN Attending Provider VIDHI ANDERSON Attending Unavailable Allergies Allergy Classification Reported Allergen(s) Allergy Type Date of Onset Reaction(s) Facility (2 sources) Acetaminophen / oxyCODONE Drug Allergy 07-30-20 14 [facility] (8 sources) levoFLOXacin Drug Allergy 10-11-20 16 hives [facility] (2 sources) Meperidine Drug Allergy 07-30-20 14 [facility] (2 sources) Darvocet-N 100 Drug allergy (disorder) 07-30-20 14 [facility] (6 sources) Acetaminophen / oxyCODONE Drug Allergy Unknown [facility] Other (6 sources) Acetaminophen / Propoxyphene Drug Allergy Unknown [facility] Other (10 sources) Meperidine; Translations: [MEPERIDINE] Drug Allergy 12-15-19 14 Unknown, Vomiting [facility] (8 sources) Simvastatin Drug Allergy 08-23-20 24 Unknown, Hives [facility] (1 source) Tylenol-Codeine #3 Drug allergy (disorder) [facility] (5 sources) Allergies Reconciled Propensity to adverse reactions Unknown [facility] Other (5 sources) patient allergy list reviewed by nurse or physicia Propensity to adverse reactions 06-21-20 19 Comment:Done [facility] Other (5 sources) Darvocet A500 *ANALGESICS - OPIOID* Propensity to adverse reactions 10-27-19 17 Unknown [facility] Other (2 sources) Acetaminophen; Translations: [acetaminophen] Drug Allergy 09-07-20 23 [facility] (5 sources) levoFLOXacin; Translations: [levofloxacin] Drug Allergy 08-21-20 21 [facility] (4 sources) oxyCODONE; Translations: [oxycodone] Drug Allergy 09-07-20 23 [facility] (4 sources) Propoxyphene; Translations: [propoxyphene] Drug Allergy 09-07-20 23 [facility] (1 source) Meperidine Drug Allergy 09-07-20 [facility] (2 sources) Darvocet A500 *ANALGESICS - OP Allergy to substance 08-23-20 [facility] Comment on above: Free Text Allergy: D arvocet A500 *ANALGESICS - OPIOID*; Onset Date: 10/27/2016 (4 sources) Acetaminophen / oxyCODONE; Translations: [OXYCODONE-ACETAM INOPHEN] Drug Allergy 12-15-19 14 GI intolerance [facility] (3 sources) Meperidine Drug Allergy 02-25-20 GI intolerance [facility] (1 source) PROPOXYPHENE N-ACETAMINOPHEN; Translations: [PROPOXYPHENE N-ACETAMINOPHEN] Propensity to adverse reactions to drug (disorder) 12-15-19 14 [facility] Medications Current Medications Medication Drug Class(es) Dates Sig (Normalized) Sig (Original) aspirin 81 mg oral tablet (1 source) Platelet Aggregation Inhibitor, Nonsteroidal Anti-inflammatory Drug Start: 05-24-2025 take 1 tablet by mouth once daily Aspirin 81 mg tablet Active 81 MG PO Daily May 24, 2025 12:00am Complies with drug therapy 24 hr buPROPion hydrochloride 300 mg extended release oral tablet (20 sources) Aminoketone Start: 05-24-2025 take 1 tablet by mouth once daily in the morning Bupropion Hcl (Wellbutrin Xl) 300 mg tablet extended release 24 hr Active 300 MG PO Every morning May 24, 2025 12:00am Complies with drug therapy Start: 08-23-2024 End: 05-24-2025 take 1 tablet by mouth twice daily Bupropion Hcl 100 mg tablet Discontinued 100 MG PO Twice daily August 23, 2024 12:00am May 24, 2025 4:19pm Start: 06-25-2022 buPROPion HCl 100MG BuPROPion HCl( 100MG Oral 2 times daily ) Active -Hx Entry Oral 2 times daily for 0 *Pick strength-form from [employer] for eRX* Jun, Active take 1 tablet by thomas th once daily buPROPion XL (Wellbutrin XL) 300 MG 24 hr tablet Take 1 tablet by mouth Daily Active clopidogrel 75 mg oral tablet (4 sources) [id number] Platelet Inhibitor Start: 05-24-2025 take 1 tablet by mouth once daily Clopidogrel (Plavix) 75 mg tablet Active 75 MG PO Daily May 24, 2025 12:00am Complies with drug therapy Start: 12-01-2023 End: 11-30-2024 take 1 tablet by mouth once daily clopidogrel (Plavix) 75 MG tablet Take 75 mg by mouth Daily 12/01/2023 11/30/2024 Active 24 hr dilTIAZem hydrochloride 240 mg extended release oral capsule (20 sources) Calcium Channel Rob Start: 05-24-2025 take 1 mg by mouth every twenty-four hours Diltiazem Hcl (Cartia Xt) 240 mg capsule,extended release 24hr Active MG PO May 24, 2025 12:00am Complies with drug therapy Start: 08-23-2024 End: 08-23-2024 take 1 capsule by mouth once daily, then take 1 capsule by mouth every twenty-four hours Diltiazem Hcl (Cardizem Cd) 240 mg capsule,extended release 24hr Discontinued 240 MG PO Daily August 23, 2024 12:00am August 23, 2024 11:19am Start: 08-23-2024 End: 05-24-2025 take 2 tablets by mouth once daily Diltiazem Hcl 120 mg tablet Discontinued 120 MG PO Daily August 23, 2024 11:19am May 24, 2025 4:19pm [employer] tablets Orally daily; Note: Source Status: Takingtotal of 240 mg; Provider: Robel Stewart ( ) Start: 08-23-2024 End: 08-23-2024 take 2 tablets by mouth once daily Diltiazem Hcl Discontinued 2 TAB PO Daily August 23, 2024 12:00am August 23, 2024 11:20am [employer] tablets Orally daily; Note: Source Status: Takingtotal of 240 mg; Provider: Robel Stewart ( ) Start: 12-01-2023 End: 11-30-2024 take 1 capsule by mouth in the morning, then take 1 capsule by mouth every twenty-four hours dilTIAZem CD (Cardizem CD) 120 MG 24 hr capsule Take 120 mg by mouth in the morning. 12/01/2023 11/30/2024 Active Start: 06-26-2022 take 240 mg by mouth once ric y Cardizem CD 240MG Cardizem CD( 240MG Oral daily ) Active -Hx Entry Oral daily for 0 *Pick strength-form from [employer] for eRX* Jun, Active take 2 tablets by [facility] every twenty-four hours Cardizem 120 MG 2 tablets Orally daily total of 240 mg Active DULoxetine 30 mg delayed release oral capsule (19 sources) Serotonin and Norepinephrine Reuptake Inhibitor Start: 08-23-2024 End: 08-23-2024 take 1 capsule by mouth once daily Duloxetine (Cymbalta) 30 mg capsule,delayed release(DR/EC) Active 30 MG PO Daily August 23, 2024 12:00am Complies with drug therapy hydroCHLOROthiazide 25 mg oral tablet (4 sources) Thiazide Diuretic Start: 05-24-2025 take 1 tablet by mouth once daily Hydrochlorothiazide 25 mg tablet Active 25 MG PO Daily May 24, 2025 12:00am Complies with drug therapy Start: 12-01-2023 End: 11-30-2024 take 1 tablet by mouth in the morning hydroCHLOROthiazide (HYDRODiuril) 25 MG tablet Take 25 mg by mouth in the morning. 12/01/2023 11/30/2024 Active metoprolol tartrate 25 mg oral tablet (4 sources) beta-Adrenergic Rob Start: 05-24-2025 take 1 tablet by mouth once daily Metoprolol Tartrate 25 mg tablet Active 25 MG PO Daily May 24, 2025 12:00am Complies with drug therapy Start: 12-01-2023 End: 11-30-2024 take 1 tablet by mouth in the morning metoprolol tartrate (Lopressor) 25 MG tablet Take 25 mg by mouth in the morning and 25 mg in the evening. 12/01/2023 11/30/2024 Active nitroglycerin 0.4 mg sublingual tablet (4 sources) Nitrate Vasodilator Start: 05-24-2025 take 1 tablet under the tongue once Nitroglycerin 0.4 mg tablet, sublingual Active 0.4 MG SUBLINGUAL Once May 24, 2025 12:00am Complies with drug therapy nitroglycerin (N itrostat) 0.[address] 0.4 mg under the tongue every 5 (five) minutes if needed for chest pain Active rosuvastatin calcium 40 mg oral tablet (4 sources) HMG-CoA Reductase Inhibitor Start: 05-24-2025 take 1 tablet by mouth once daily Rosuvastatin 40 mg tablet Active 40 MG PO Daily May 24, 2025 12:00am Complies with drug therapy Start: 12-01-2023 End: 11-30-2024 take 1 tablet by mouth at bedtime rosuvastatin (Crestor) 40 MG tablet Take 40 mg by mouth at bedtime 12/01/2023 11/30/2024 Active Completed/Discontinued Medications Medication Drug Class(es) Dates Sig (Normalized) Sig (Original) citalopram 20 mg oral tablet (7 sources) Serotonin Reuptake Inhibitor Start: 08-23-2024 End: 05-24-2025 Citalopram 20 mg tablet Discontinued MG PO August 23, 2024 12:00am May 24, 2025 4:19pm FreeTextSig: Citalopram Hydrobromide( 20MG Oral 2 times daily ) Active -Hx Entry Oral 2 times daily; Note: Source Status: Taking*Pick strength-form from [employer] for eRX*; Provider: Robel Stewart ( ) Start: 06-25-2022 Citalopram Hyd robromide 20MG Citalopram Hydrobromide( 20MG Oral 2 times daily ) Active -Hx Entry Oral 2 times daily for 0 *Pick strength-form from [employer] for eRX* Jun, Active 24 hr isosorbide mononitrate 60 mg extended release oral tablet (18 sources) Nitrate Vasodilator Start: 08-23-2024 End: 08-23-2024 take 1 tablet by mouth once daily in the morning Isosorbide Mononitrate 60 mg tablet extended release 24 hr Discontinued 1 TAB PO Daily August 23, 2024 12:00am August 23, 2024 11:20am [employer]Si tablet in the morning Orally Once a day; Note: Source Status: [id number] mg; Provider: Robel Stewart ( ) Start: 12-01-2023 End: 11-30-2024 take 1 tablet by mouth once daily, then take 1 tablet by mouth every twenty-four hours Isosorbide Mononitrate 120 mg tablet extended release 24 hr Active 120 MG PO Daily August 23, 2024 12:00am Complies with drug therapy Start: 06-26-2022 Imdur 120MG Im dur( 120MG Oral ) Active -Hx Entry Oral for 0 *Reorder from [employer] for eRx and Interaction Alerts* Jun, Active take 1 tablet by thomas th once daily in the morning Imdur 60 MG 1 tablet in the morning Orally Once a day 120 mg Active Problems Active Problems Problem Classification Problem Date Documented Date Episodic/Chronic Anxiety disorders (6 sources) Generalized anxiety disorder; Translations: [Generalized anxiety disorder] Chronic Conditions associated with dizziness or vertigo (5 sources) Vertigo; Translations: [Dizziness and giddiness] Onset: 02-28-2024 02-28-2024 Episodic Conduction disorders (5 sources) Pre-excitation syndrome; 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] Onset: 06-20-2018 Chronic Disorders of lipid metabolism (9 sources) Hyperlipidemia, unspecified; Translations: [Hyperlipidemia] Onset: 06-20-2018 Chronic Fever of unknown origin (5 sources) Fever, unspecified; Translations: [Fever] Episodic Headache; including migraine (5 sources) Tension-type headache; Translations: [Tension-type headache, unspecified, not intractable] Onset: 02-28-2024 02-28-2024 Chronic Menstrual disorders (10 sources) Excessive and frequent menstruation with regular cycle; Translations: [Intermenstrual bleeding - irregular] Resolved: 02-25-2017 Chronic Miscellaneous mental health disorders (5 sources) Primary insomnia; Translations: [Primary insomnia] Onset: 02-28-2024 02-28-2024 Chronic Mood disorders (6 sources) Moderate recurrent [...] conditions other than malignant neoplasm] Episodic Other and ill-defined cerebrovascular disease (3 sources) Cerebrovascular disease; Translations: [Cerebrovascular disease, unspecified] Onset: 02-25-2024 02-25-2024 Chronic Other connective tissue disease (1 source) Pain in right hand; Translations: [Pain in right hand] Episodic Other connective tissue disease (4 sources) Pain in right hand; Translations: [Pain in right hand] Episodic Other eye disorders (5 sources) Dilated pupil; 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 Other eye disorders (5 sources) Anisocoria; 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] Onset: 02-25-2024 02-25-2024 Chronic Other lower respiratory disease (2 sources) Shortness of breath; Translations: [Shortness of breath] Onset: 05-03-2025 Episodic Other nervous system disorders (5 sources) Tremor; Translations: [Tremor, unspecified] Onset: 02-28-2024 02-28-2024 Episodic Other non-traumatic joint disorders (1 source) Pain in left hip; Translations: [Pain in left hip] Episodic Other non-traumatic joint disorders (4 sources) Arthralgia of the pelvic region and thigh; Translations: [Pain in left hip] Episodic Other non-traumatic joint disorders (2 sources) Hip pain; Translations: [Pain in right hip] [...] conditions (not mental disorders or infectious disease) (9 sources) Abnormal findings on diagnostic imaging of other specified body structures; Translations: [MRI scan abnormal] Onset: 02-16-2023 Chronic Other screening for suspected [...] agents; Translations: [Contact dermatitis] Onset: 06-21-2019 Episodic Headache; including migraine (3 sources) Tension-type headache; Translations: [Tension-type headache, unspecified, intractable] Onset: 02-25-2024 02-25-2024 Episodic Malaise and fatigue (1 source) Other [...] unspecified, unspecified trimester] Onset: 11-14-2008 Episodic Other eye disorders (3 sources) Fundoscopy abnormal; Translations: [Unspecified disorder of eye and adnexa] Onset: 02-25-2024 02-25-2024 Episodic Other liver diseases (4 sources) Elevated [...] Name Value Interpretation Reference Range Facility 36on 06-06-2025 36 Regarding stress martínez t result from 05/28/2025: Vidhi Anderson MD to Me (Selected Message) EE 06/05/25 7:55 AM Please reassure her stress test is normal Thanks Patient made aware. Normal [facility] Orders Onlyon 06-04-2025 Orders Only [id number] Aga Gutiérrez neil A 1975 F Date Provider Department Center 06/04/2025 [id number], HISTORICAL CARD [facility] Family History Problem Relation Age of Onset Supraventricular tachycardia Mother Heart disease Father Supraventricular tachycardia Sister Heart disease Paternal Grandmother Heart disease Paternal Grandfather Family Status - Relation Status Age at Mother Father Sister Paternal Grandmother Paternal Grandfather [facility] Office Visiton 05-03-2025 Follow-up visit [id number] Aga Gutiérrez neil A 1975 F Date Provider Department Center 05/03/2025 [id number] ANDERSON Family History Problem Relation Age of Onset Supraventricular tachycardia Mother Heart disease Father Supraventricular tachycardia Sister Heart disease Paternal Grandmother Heart disease Paternal Grandfather Family Status - Relation Status Age at Mother Father Sister Paternal Grandmother Paternal Grandfather Level of Service:14851 OR OFFICE/OUTPATIENT ESTABLISHED MOD MDM 30 MIN [facility] 36on 07-25-2024 36 Patient made aware. [facility] 36on 07-24-2024 36 Patient stopped by t he office today. Says she was out of hydrochlorothiazide for 2 days and gained 8#. She did lose those 8# once she restarted it. She wants to know if this is normal and she wonders how much water weight is really on her. Any advice? Thanks. [facility] MR breast BI wo/w con CADon 09-07-2023 MR breast BI wo/w con CAD [facility] Main [address] [address] MRI Report Signed Patient: Elvia Gutiérrez MR#: [id number] : 1975 Acct:[id number] Age/Sex: 48 / F ADM Date: 09/07/23 Loc: MR Room: Type: [facility] Attending Dr: Pat Huston MD Copies [...] All imaged data was reviewed using the [employer]ab[employer] system. The postcontrast images were subtracted and [...] Waite Jr., D.O.09/07/2023 11:47 AM Dictation Location: [place] [address] Transcribed By: [facility] 09/07/23 1147 Dictated By: Bunny Waite Jr, DO 09/07/23 1138 Signed By: 09/07/23 1147 [facility] MRI BRAIN WO W CONon 04-25-2 023 [...] by: EDILSON FERGUSON Date: 2023-02-16 10:16 Normal [facility] LIPID PROFILEon 02-11-2023 CHOL-HDL RATIO NORM SEE BELOW Normal [facility] Comment on above: Result Comment: 3.3 - 4.4 LOW RISK 4.4 - 7.1 AVERAGE RISK 7.1 - 11.0 MODERATE RISK >11.0 HIGH RISK Performed By: #### C MP, TSH, LIPID #### [facility] [address] [place] [address] [address] David Zapata Cholesterol [Mass/Vol] 120 mg/dL Normal <=200 [facility] Comment on above: Performed By: #### C MP, TSH, LIPID #### [facility] [address] [address] [address] David Zapata Cholesterol in HDL [Mass/Vol] 54 mg/dL Normal 40-60 [facility] Comment on above: Performed By: #### C MP, TSH, LIPID #### [facility] [address] [address] [address] David Zapata Cholesterol in LDL [Mass/Vol] 45.6 mg/dL Normal [facility] Comment on above: Performed By: #### C MP, TSH, LIPID #### [facility] [address] [address] [address] David Zapata Cholesterol.total/C holesterol in HDL [Mass ratio] 2.2 {ratio} Normal [facility] Comment on above: Performed By: #### C MP, TSH, LIPID #### [facility] [address] [address] [address] David Zapata HDL NORMAL > or = 60 mg/dl - LO W CARDIOVASCULAR RISK <40 mg/dl - HIGH CARDIOVASCULAR RISK Normal [facility] Comment on above: Performed By: #### C MP, TSH, LIPID #### [facility] [address] [address] [address] David Zapata LDL CALC NORMAL SEE BELOW Normal [facility] Comment on above: Result Comment: <100 mg/dl OPTIMAL 100 - 129 mg/dl NEAR OR ABOVE OPTIMAL 130 - 159 mg/dl BORDERLINE HIGH 160 - 189 mg/dl HIGH >190 mg/dl VERY HIGH Performed By: #### C MP, TSH, LIPID #### [facility] [address] [address] [address] David Zapata Triglyceride [Mass/Vol] 102 mg/dL Normal <=150 [facility] Comment on above: Performed By: #### C MP, TSH, LIPID #### [facility] [address] [address] [address] David Zapata VLDL CALC 20.4 mg/dL Normal [facility] Comment on above: Performed By: #### C MP, TSH, LIPID #### [facility] [address] [address] [address] David Zapata LIVER PROFILEon 02-11-2023 Albumin [Mass/Vol] 3.4 g/dL Normal 3.4-5.0 [facility] Comment on above: Performed By: #### C MP, TSH, LIPID #### [facility] [address] [address] [address] David Zapata Albumin/Globulin [Mass ratio] 1.0 {ratio} Normal [facility] Comment on above: Performed By: #### C MP, TSH, LIPID #### [facility] [address] [address] [address] David Zapata ALP [Catalytic activity/Vol] 51 U/L Normal 46-116 [facility] Comment on above: Performed By: #### C MP, TSH, LIPID #### [facility] [address] [place] [address] Dr. David Zapata ALT [Catalytic activity/Vol] 32 U/L Normal 14-59 [facility] Comment on above: Performed By: #### C MP, TSH, LIPID #### [facility] [address] [place] [address] Dr. David Zapata AST [Catalytic activity/Vol] 18 U/L Normal 15-37 [facility] Comment on above: Performed By: #### C MP, TSH, LIPID #### [facility] [address] [place] [address] Dr. David Zapata BILI, CONJUGATED 0.1 mg/dL Normal 0.0-0.2 [facility] Comment on above: Performed By: #### C MP, TSH, LIPID #### [facility] [address] [place] [address] Dr. David Zapata Bilirubin [Mass/Vol] 0.4 mg/dL Normal 0.2-1.0 [facility] Comment on above: Performed By: #### C MP, TSH, LIPID #### [facility] [address] [place] [address] Dr. David Zapata Globulin (S) [Mass/Vol] 3.5 g/dL Normal [facility] Comment on above: Performed By: #### C MP, TSH, LIPID #### [facility] [address] [place] [address] Dr. David Zapata Protein [Mass/Vol] 6.9 g/dL Normal 6.4-8.2 [facility] Comment on above: Performed By: #### C MP, TSH, LIPID #### [facility] [address] [place] [address] Dr. David Zapata CBC AUTO DIFFon 11-18-2022 BASO # 0.0 103/ul Normal 0.0-0.1 [facility] Comment on above: Performed By: #### C BC #### [facility] [address] [place] [address] Dr. David Zapata Basophils/100 WBC (Bld) 0.4 % Normal 0.2-2.0 [facility] Comment on above: Performed By: #### C BC #### [facility] [address] [place] [address] Dr. David Zapata EO # 0.3 103/ul Normal 0.0-0.7 [facility] Comment on above: Performed By: #### C BC #### [facility] [address] [place] [address] Dr. David Zapata Eosinophils/100 WBC (Bld) 3.4 % Normal 0.9-7.0 [facility] Comment on above: Performed By: #### C BC #### [facility] [address] [place] [address] Dr. David Zapata Erythrocyte distribution width (RBC) [Ratio] 12.0 % Normal 11.0-15.0 [facility] Comment on above: Performed By: #### C BC #### [facility] [address] [place] [address] Dr. David Zapata Hematocrit (Bld) [Volume fraction] 44.2 % Normal 36.0-48.0 [facility] Comment on above: Performed By: #### C BC #### [facility] [address] [place] [address] Dr. David Zapata Hemoglobin (Bld) [Mass/Vol] 14.0 g/dL Normal 12.0-16.0 [facility] Comment on above: Performed By: #### C BC #### [facility] [address] [place] [address] Dr. David Zapata IG # 0.04 10e3/ul Critically high 0.00-0.03 [facility] Comment on above: Performed By: #### C BC #### [facility] [address] [place] [address] Dr. David Zapata IG % 0.5 % Normal 0.0-0.5 [facility] Comment on above: Performed By: #### C BC #### [facility] [address] [place] [address] Dr. David Zapata LYMPH # 2.3 103/ul Normal 1.2-3.8 [facility] Comment on above: Performed By: #### C BC #### [facility] [address] [place] [address] Dr. David Zapata Lymphocytes/100 WBC (Bld) 28.7 % Normal 20.5-60.0 [facility] Comment on above: Performed By: #### C BC #### [facility] [address] [place] [address] Dr. David Zapata MANUAL DIFF REQ NO Normal [facility] Comment on above: Performed By: #### C BC #### [facility] [address] [place] [address] Dr. David Zapata MCH (RBC) [Entitic mass] 29.2 pg Normal 26.7-34.0 [facility] Comment on above: Performed By: #### C BC #### [facility] [address] [place] [address] Dr. David Zapata MCHC (RBC) [Mass/Vol] 31.7 g/dL Normal 29.9-35.2 [facility] Comment on above: Performed By: #### C BC #### [facility] [address] [place] [address] Dr. David Zapata MCV (RBC) [Entitic vol] 92.1 fL Normal 81.0-99.0 [facility] Comment on above: Performed By: #### C BC #### [facility] [address] [place] [address] Dr. David Zapata MONO # 0.6 103/ul Normal 0.3-0.8 [facility] Comment on above: Performed By: #### C BC #### [facility] [address] [place], [place] [address] Dr. David Zapata Monocytes/100 WBC (Bld) 7.3 % Normal 1.7-12.0 [facility] Comment on above: Performed By: #### C BC #### [facility] [address] [place] [address] Dr. David Zapata NEUT # 4.8 103/ul Normal 1.4-6.5 [facility] Comment on above: Performed By: #### C BC #### [facility] [address] [place] [address] Dr. David Zapata Neutrophils/100 WBC (Bld) 59.7 % Normal 43.0-75.0 [facility] Comment on above: Performed By: #### C BC #### [facility] [address] [place] [address] Dr. David Zapata Platelet mean volume (Bld) [Entitic vol] 9.4 fL Critically low 9.5-13.5 [facility] Comment on above: Performed By: #### C BC #### [facility] [address] [place] [address] Dr. David Zapata PLT 308 103/ul Normal 150-450 [facility] Comment on above: Performed By: #### C BC #### [facility] [address] [place] [address] Dr. David Zapata RBC 4.80 106/ul Normal 4.20-5.40 [facility] Comment on above: Performed By: #### C BC #### [facility] [address] [place] [address] Dr. David Zapata WBC 8.0 103/ul Normal 4.0-11.0 [facility] Comment on above: Performed By: #### C BC #### [facility] [address] [place] [address] Dr. David Zapata LIPID PROFILEon 11-18-2022 CHOL-HDL RATIO NORM SEE BELOW Normal [facility] Comment on above: Result Comment: 3.3 - 4.4 LOW RISK 4.4 - 7.1 AVERAGE RISK 7.1 - 11.0 MODERATE RISK >11.0 HIGH RISK Performed By: #### C MP, TSH, LIPID #### [facility] [address] [place] [address] Dr. David Zapata Cholesterol [Mass/Vol] 203 mg/dL Critically high <=200 [facility] Comment on above: Performed By: #### C MP, TSH, LIPID #### [facility] [address] [address] [address] David Zapata Cholesterol in HDL [Mass/Vol] 57 mg/dL Normal 40-60 [facility] Comment on above: Performed By: #### C MP, TSH, LIPID #### [facility] [address] [address] [address] David Zapata Cholesterol in LDL [Mass/Vol] 120.4 mg/dL Normal [facility] Comment on above: Performed By: #### C MP, TSH, LIPID #### [facility] [address] [address] [address] David Zapata Cholesterol.total/C holesterol in HDL [Mass ratio] 3.6 {ratio} Normal [facility] Comment on above: Performed By: #### C MP, TSH, LIPID #### [facility] [address] [address] [address] David Zapata HDL NORMAL > or = 60 mg/dl - LO W CARDIOVASCULAR RISK <40 mg/dl - HIGH CARDIOVASCULAR RISK Normal [facility] Comment on above: Performed By: #### C MP, TSH, LIPID #### [facility] [address] [address] [address] David Zapata LDL CALC NORMAL SEE BELOW Normal [facility] Comment on above: Result Comment: <100 mg/dl OPTIMAL 100 - 129 mg/dl NEAR OR ABOVE OPTIMAL 130 - 159 mg/dl BORDERLINE HIGH 160 - 189 mg/dl HIGH >190 mg/dl VERY HIGH Performed By: #### C MP, TSH, LIPID #### [facility] [address] [address] [address] David Zapata Triglyceride [Mass/Vol] 128 mg/dL Normal <=150 [facility] Comment on above: Performed By: #### C MP, TSH, LIPID #### [facility] [address] [address] [address] David Zapata VLDL CALC 25.6 mg/dL Normal [facility] Comment on above: Performed By: #### C MP, TSH, LIPID #### [facility] [address] [address] [address] David Zapata PROF 14(COMP METB)on 023 Albumin [Mass/Vol] 3.5 g/dL Normal 3.4-5.0 [facility] Comment on above: Performed By: #### C MP, TSH, LIPID #### [facility] [address] [address] [address] David Zapata Albumin/Globulin [Mass ratio] 1.0 {ratio} Normal [facility] Comment on above: Performed By: #### C MP, TSH, LIPID #### [facility] [address] [address] [address] David Zapata ALP [Catalytic activity/Vol] 68 U/L Normal 46-116 [facility] Comment on above: Performed By: #### C MP, TSH, LIPID #### [facility] [address] [place] [address] Dr. David Zapata ALT [Catalytic activity/Vol] 28 U/L Normal 14-59 [facility] Comment on above: Performed By: #### C MP, TSH, LIPID #### [facility] [address] [address] [address] David Zapata Anion gap [Moles/Vol] 11.3 mmol/L Normal [facility] Comment on above: Performed By: #### C MP, TSH, LIPID #### [facility] [address] [address] [address] David Zapata AST [Catalytic activity/Vol] 18 U/L Normal 15-37 [facility] Comment on above: Performed By: #### C MP, TSH, LIPID #### [facility] [address] [address] [address] David Zapata Bilirubin [Mass/Vol] 0.4 mg/dL Normal 0.2-1.0 [facility] Comment on above: Performed By: #### C MP, TSH, LIPID #### [facility] [address] [address] [address] David Zapata Calcium [Mass/Vol] 8.8 mg/dL Normal 8.5-10.1 [facility] Comment on above: Performed By: #### C MP, TSH, LIPID #### [facility] [address] [address] [address] David Zapata Chloride [Moles/Vol] 103 mmol/L Normal 98-107 [facility] Comment on above: Performed By: #### C MP, TSH, LIPID #### [facility] [address] [address] [address] David Zapata CO2 [Moles/Vol] 28.4 mmol/L Normal 21.0-32.0 [facility] Comment on above: Performed By: #### C MP, TSH, LIPID #### [facility] [address] [address] [address] David Zapata Creatinine [Mass/Vol] 0.96 mg/dL Normal 0.55-1.02 [facility] Comment on above: Performed By: #### C MP, TSH, LIPID #### [facility] [address] [place] [address] Dr. David Zapata EGFR-AF JORDANIAN >60 Normal >=60 [facility] Comment on above: Performed By: #### C MP, TSH, LIPID #### [facility] [address] [place] [address] Dr. David Zapata EGFR-NON AF JORDANIAN >60 Normal >=60 [facility] Comment on above: Performed By: #### C MP, TSH, LIPID #### [facility] [address] [address] [address] David Zapata Globulin (S) [Mass/Vol] 3.5 g/dL Normal [facility] Comment on above: Performed By: #### C MP, TSH, LIPID #### [facility] [address] [place] [address] Dr. David Zapata Glucose [Mass/Vol] 94 mg/dL Normal 74-106 [facility] Comment on above: Performed By: #### C MP, TSH, LIPID #### [facility] [address] [place] [address] Dr. David Zapata Potassium [Moles/Vol] 3.7 mmol/L Normal 3.5-5.1 [facility] Comment on above: Performed By: #### C MP, TSH, LIPID #### [facility] [address] [place] [address] Dr. David Zapata Protein [Mass/Vol] 7.0 g/dL Normal 6.4-8.2 [facility] Comment on above: Performed By: #### C MP, TSH, LIPID #### [facility] [address] [address] [address] David Zapata Sodium [Moles/Vol] 139 mmol/L Normal 136-145 [facility] Comment on above: Performed By: #### C MP, TSH, LIPID #### [facility] [address] [place] [address] Dr. David Zapata Urea nitrogen [Mass/Vol] 8.0 mg/dL Normal 7.0-18.0 [facility] Comment on above: Performed By: #### C MP, TSH, LIPID #### [facility] [address] [place] [address] Dr. David Zapata Urea nitrogen/Creatinine [Mass ratio] 8.3 mg/mg Normal [facility] Comment on above: Performed By: #### C MP, TSH, LIPID #### [facility] [address] [place] [address] Dr. David Zapata TSHon 11-18-2022 TSH 1.557 uIU/mL Normal 0.358-3.740 [facility] Comment on above: Performed By: #### C MP, TSH, LIPID #### [facility] [address] [place] [address] Dr. David Zapata VITAMIN B12on 11-18-2022 Cobalamin (Vitamin B12) [Mass/Vol] 247.0 pg/mL Normal 193.0-986.0 [facility] Comment on above: Performed By: #### V ITB12 #### [facility] [address] [place] [address] Dr. David Zapata NM STRESS/REST MULTIon 11-04 NM STRESS/REST MULTI Patient: ELVIA GUTIÉRREZ Exam Date: 11/04/2022 : 1975 Gender:F Ordering : DR VIDHI ANDERSON M.D. Admission #: [id number] Family : Order #: [id number] CLICK HERE TO VIEW EXAM RADIOLOGY REPORT [...] Ferguson M.D. on 11/05/2022 at 11:01 Normal [facility] MAMM SCREEN 3D AMANUEL CADon 07-10-2022 MG MAMM SCREEN 3D AMANUEL CAD Patient: ELVIA GUTIÉRREZ Exam Date: 07/10/2022 : 1975 Gender:F Ordering : DR PAT HUSTON M.D. Admission #: [id number] Family : Order #: [id number] CLICK HERE TO VIEW EXAM RADIOLOGY REPORT [...] Family Cancers None LOCATION: [facility] BREAST COMPOSITION: Heterogeneously dense,which may obscure [...] 07/10/2022 at 08:04 Normal [facility] CBC AUTO DIFFon 06-24-2022 BASO # 0.0 103/ul Normal 0.0-0.1 [facility] Comment on above: Performed By: #### C BC #### [facility] [address] [place] [address] Dr. David Zapata Basophils/100 WBC (Bld) 0.5 % Normal 0.2-2.0 [facility] Comment on above: Performed By: #### C BC #### [facility] [address] [place] [address] Dr. David Zaapta EO # 0.3 103/ul Normal 0.0-0.7 [facility] Comment on above: Performed By: #### C BC #### [facility] [address] [place] [address] Dr. David Zapata Eosinophils/100 WBC (Bld) 3.4 % Normal 0.9-7.0 [facility] Comment on above: Performed By: #### C BC #### [facility] [address] [place] [address] Dr. David Zapata Erythrocyte distribution width (RBC) [Ratio] 12.1 % Normal 11.0-15.0 [facility] Comment on above: Performed By: #### C BC #### [facility] [address] [place] [address] Dr. David Zapata Hematocrit (Bld) [Volume fraction] 40.6 % Normal 36.0-48.0 [facility] Comment on above: Performed By: #### C BC #### [facility] [address] [place] [address] Dr. David Zapata Hemoglobin (Bld) [Mass/Vol] 13.5 g/dL Normal 12.0-16.0 [facility] Comment on above: Performed By: #### C BC #### [facility] [address] [place] [address] Dr. David Zapata IG # 0.03 10e3/ul Normal 0.00-0.03 [facility] Comment on above: Performed By: #### C BC #### [facility] [address] [place] [address] Dr. David Zapata IG % 0.4 % Normal 0.0-0.5 [facility] Comment on above: Performed By: #### C BC #### [facility] [address] [place] [address] Dr. David Zapata LYMPH # 2.1 103/ul Normal 1.2-3.8 [facility] Comment on above: Performed By: #### C BC #### [facility] [address] [place] [address] Dr. David Zapata Lymphocytes/100 WBC (Bld) 28.6 % Normal 20.5-60.0 [facility] Comment on above: Performed By: #### C BC #### [facility] [address] [place] [address] Dr. David Zapata MANUAL DIFF REQ NO Normal [facility] Comment on above: Performed By: #### C BC #### [facility] [address] [place] [address] Dr. David Zapata MCH (RBC) [Entitic mass] 29.2 pg Normal 26.7-34.0 [facility] Comment on above: Performed By: #### C BC #### [facility] [address] [place] [address] Dr. David Zapata MCHC (RBC) [Mass/Vol] 33.3 g/dL Normal 29.9-35.2 [facility] Comment on above: Performed By: #### C BC #### [facility] [address] [place] [address] Dr. David Zapata MCV (RBC) [Entitic vol] 87.9 fL Normal 81.0-99.0 [facility] Comment on above: Performed By: #### C BC #### [facility] [address] [place] [address] Dr. David Zapata MONO # 0.6 103/ul Normal 0.3-0.8 [facility] Comment on above: Performed By: #### C BC #### [facility] [address] [place] [address] Dr. David Zapata Monocytes/100 WBC (Bld) 7.9 % Normal 1.7-12.0 [facility] Comment on above: Performed By: #### C BC #### [facility] [address] [place] [address] Dr. David Zapata NEUT # 4.3 103/ul Normal 1.4-6.5 [facility] Comment on above: Performed By: #### C BC #### [facility] [address] [place] [address] Dr. David Zapata Neutrophils/100 WBC (Bld) 59.2 % Normal 43.0-75.0 [facility] Comment on above: Performed By: #### C BC #### [facility] [address] [place] [address] Dr. David Zapata Platelet mean volume (Bld) [Entitic vol] 9.2 fL Critically low 9.5-13.5 [facility] Comment on above: Performed By: #### C BC #### [facility] [address] [place] [address] Dr. David Zapata PLT 280 103/ul Normal 150-450 [facility] Comment on above: Performed By: #### C BC #### [facility] [address] [place] [address] Dr. David Zapata RBC 4.62 106/ul Normal 4.20-5.40 [facility] Comment on above: Performed By: #### C BC #### [facility] [address] [address] [address] David Zapata WBC 7.3 103/ul Normal 4.0-11.0 [facility] Comment on above: Performed By: #### C BC #### [facility] [address] [address] [address] David Zapata GLYCOHEMOGLOBIN A1Con 2021 ADA RECOMMENDATION SEE BELOW Normal [facility] Comment on above: Result Comment: ADA RECOMMENDED LIMIT 4.0 - 6.0 ADA THERAPEUTIC TARGET < 7.0 ACTION SUGGESTED > 7.0 Performed By: #### C MP, TSH, LIPID #### [facility] [address] [address] [address] David Zapata Glucose [Mass/Vol] 103 mg/dL Normal [facility] Comment on above: Performed By: #### C MP, TSH, LIPID #### [facility] [address] [address] [address] David Zapata HbA1c (Bld) [Mass fraction] 5.2 % Normal 4.5-6.2 [facility] Comment on above: Performed By: #### C MP, TSH, LIPID #### [facility] [address] [address] [address] David Zapata LIPID PROFILEon 06-24-2022 CHOL-HDL RATIO NORM SEE BELOW Normal [facility] Comment on above: Result Comment: 3.3 - 4.4 LOW RISK 4.4 - 7.1 AVERAGE RISK 7.1 - 11.0 MODERATE RISK >11.0 HIGH RISK Performed By: #### C MP, TSH, LIPID #### [facility] [address] [address] [address] David Zapata Cholesterol [Mass/Vol] 217 mg/dL Critically high <=200 [facility] Comment on above: Performed By: #### C MP, TSH, LIPID #### [facility] [address] [place] [address] Dr. David Zapata Cholesterol in HDL [Mass/Vol] 50 mg/dL Normal 40-60 [facility] Comment on above: Performed By: #### C MP, TSH, LIPID #### [facility] [address] [address] [address] David Zapata Cholesterol in LDL [Mass/Vol] 137.6 mg/dL Normal [facility] Comment on above: Performed By: #### C MP, TSH, LIPID #### [facility] [address] [address] [address] David Zapata Cholesterol.total/C holesterol in HDL [Mass ratio] 4.3 {ratio} Normal [facility] Comment on above: Performed By: #### C MP, TSH, LIPID #### [facility] [address] [address] [address] David Zapata HDL NORMAL > or = 60 mg/dl - LO W CARDIOVASCULAR RISK <40 mg/dl - HIGH CARDIOVASCULAR RISK Normal [facility] Comment on above: Performed By: #### C MP, TSH, LIPID #### [facility] [address] [address] [address] David Zapata LDL CALC NORMAL SEE BELOW Normal [facility] Comment on above: Result Comment: <100 mg/dl OPTIMAL 100 - 129 mg/dl NEAR OR ABOVE OPTIMAL 130 - 159 mg/dl BORDERLINE HIGH 160 - 189 mg/dl HIGH >190 mg/dl VERY HIGH Performed By: #### C MP, TSH, LIPID #### [facility] [address] [address] [address] David Zapata Triglyceride [Mass/Vol] 147 mg/dL Normal <=150 [facility] Comment on above: Performed By: #### C MP, TSH, LIPID #### [facility] [address] [address] [address] David Zapata VLDL CALC 29.4 mg/dL Normal [facility] Comment on above: Performed By: #### C MP, TSH, LIPID #### [facility] [address] [address] [address] David Zapata PROF 14(COMP METB)on 022 Albumin [Mass/Vol] 3.6 g/dL Normal 3.4-5.0 [facility] Comment on above: Performed By: #### C MP, TSH, LIPID #### [facility] [address] [address] [address] David Zapata Albumin/Globulin [Mass ratio] 1.1 {ratio} Normal [facility] Comment on above: Performed By: #### C MP, TSH, LIPID #### [facility] [address] [address] [address] David Zapata ALP [Catalytic activity/Vol] 62 U/L Normal 46-116 [facility] Comment on above: Performed By: #### C MP, TSH, LIPID #### [facility] [address] [address] [address] David Zapata ALT [Catalytic activity/Vol] 21 U/L Normal 14-59 [facility] Comment on above: Performed By: #### C MP, TSH, LIPID #### [facility] [address] [address] [address] David Zapata Anion gap [Moles/Vol] 12.6 mmol/L Normal [facility] Comment on above: Performed By: #### C MP, TSH, LIPID #### [facility] [address] [address] [address] David Zapata AST [Catalytic activity/Vol] 14 U/L Critically low 15-37 [facility] Comment on above: Performed By: #### C MP, TSH, LIPID #### [facility] [address] [address] [address] David Zapata Bilirubin [Mass/Vol] 0.6 mg/dL Normal 0.2-1.0 [facility] Comment on above: Performed By: #### C MP, TSH, LIPID #### [facility] [address] [address] [address] David Zapata Calcium [Mass/Vol] 8.5 mg/dL Normal 8.5-10.1 [facility] Comment on above: Performed By: #### C MP, TSH, LIPID #### [facility] [address] [address] [address] David Zapata Chloride [Moles/Vol] 103 mmol/L Normal 98-107 [facility] Comment on above: Performed By: #### C MP, TSH, LIPID #### [facility] [address] [address] [address] David Zapata CO2 [Moles/Vol] 26.2 mmol/L Normal 21.0-32.0 [facility] Comment on above: Performed By: #### C MP, TSH, LIPID #### [facility] [address] [address] [address] David Zapata Creatinine [Mass/Vol] 0.94 mg/dL Normal 0.55-1.02 [facility] Comment on above: Performed By: #### C MP, TSH, LIPID #### [facility] [address] [address] [address] David Zapata EGFR-AF JORDANIAN >60 Normal >=60 [facility] Comment on above: Performed By: #### C MP, TSH, LIPID #### [facility] [address] [address] [address] David Zapata EGFR-NON AF JORDANIAN >60 Normal >=60 [facility] Comment on above: Performed By: #### C MP, TSH, LIPID #### [facility] [address] [address] [address] David Zapata Globulin (S) [Mass/Vol] 3.3 g/dL Normal [facility] Comment on above: Performed By: #### C MP, TSH, LIPID #### [facility] [address] [address] [address] David Zapata Glucose [Mass/Vol] 100 mg/dL Normal 74-106 [facility] Comment on above: Performed By: #### C MP, TSH, LIPID #### [facility] [address] [address] [address] David Zapata Potassium [Moles/Vol] 3.8 mmol/L Normal 3.5-5.1 [facility] Comment on above: Performed By: #### C MP, TSH, LIPID #### [facility] [address] [address] [address] David Zapata Protein [Mass/Vol] 6.9 g/dL Normal 6.4-8.2 [facility] Comment on above: Performed By: #### C MP, TSH, LIPID #### [facility] [address] [address] [address] David Zapata Sodium [Moles/Vol] 138 mmol/L Normal 136-145 [facility] Comment on above: Performed By: #### C MP, TSH, LIPID #### [facility] [address] [address] [address] David Zapata Urea nitrogen [Mass/Vol] 7.0 mg/dL Normal 7.0-18.0 [facility] Comment on above: Performed By: #### C MP, TSH, LIPID #### [facility] [address] [place] [address] Dr. David Zapata Urea nitrogen/Creatinine [Mass ratio] 7.4 mg/mg Normal [facility] Comment on above: Performed By: #### C MP, TSH, LIPID #### [facility] [address] [place] [address] Dr. David Zapata TSHon 06-24-2022 TSH 1.434 uIU/mL Normal 0.358-3.740 [facility] Comment on above: Performed By: #### C MP, TSH, LIPID #### [facility] [address] [place] [address] Dr. David Zapata MRI BRAIN WO W [...] by: EDILSON FERGUSON Date: 2022-06-10 06:40 Normal [facility] BASIC METABOLIC PANEL 05-26 Calcium [Mass/Vol] 8.6 mg/dL Normal 8.6-10.3 [facility] Comment on above: Order Comment: No: D o not add to previous draw Performed By: #### 5 [id number] #### [facility] [address] [place] [address], [facility] Chloride [Moles/Vol] 106 mmol/L Normal 98-107 [facility] Comment on above: Order Comment: No: D o not add to previous draw Performed By: #### 5 [id number], [id number] #### [facility] [address] [place] [address], [place] CO2 [Moles/Vol] 24 mmol/L Normal 21-31 [facility] Comment on above: Order Comment: No: D o not add to previous draw Performed By: #### 5 [id number], [id number] #### [facility] [facility] [address] [place] [address], [place] Creatinine [Mass/Vol] 0.90 mg/dL Normal 0.60-1.20 [facility] Comment on above: Order Comment: No: D o not add to previous draw Performed By: #### 5 6101, 10290 #### [facility] [address] [place] [address], [place] GFR/1.73 sq M predicted among blacks MDRD (S/P/Bld) [Vol rate/Area] mL/min/{1.73_m2} Normal >60 [facility] Comment on above: Order Comment: No: D o not add to previous draw Performed By: #### 5 610, 52650 #### [facility] [address] [place] [address], [place] GFR/1.73 sq M predicted among non-blacks MDRD (S/P/Bld) [Vol rate/Area] mL/min/{1.73_m2} Normal >60 [facility] Comment on above: Order Comment: No: D o not add to previous draw Performed By: #### 5 6100, 56372 #### [facility] [address] [place] [address], [place] Glucose [Mass/Vol] 97 mg/dL Normal 70-100 [facility] Comment on above: Order Comment: No: D o not add to previous draw Performed By: #### 5 6100, 67352 #### [facility] [address] [place] [address], [place] Potassium [Moles/Vol] 3.9 mmol/L Normal 3.5-5.1 [facility] Comment on above: Order Comment: No: D o not add to previous draw Performed By: #### 5 6100, 41241 #### [facility] [address] [place] [address], [place] Sodium [Moles/Vol] 136 mmol/L Normal 136-145 [facility] Comment on above: Order Comment: No: D o not add to previous draw Performed By: #### 5 6100, 32703 #### [facility] [address] [place] [address], [place] Urea nitrogen [Mass/Vol] 11 mg/dL Normal 7-25 [facility] Comment on above: Order Comment: No: D o not add to previous draw Performed By: #### 5 610, 99254 #### [facility] [address] [place] [address], [place] CBC COMPLETE BLOOD COUNTon 0 06-17-2019 Erythrocyte distribution width (RBC) [Ratio] 12.0 % Normal 11.5-15.0 [facility] Comment on above: Order Comment: No: D o not add to previous draw Performed By: #### 5 0608 #### [facility] [address] [place] [address], [facility] Hematocrit (Bld) [Volume fraction] 42.7 % Normal 36.0-45.0 [facility] Comment on above: Order Comment: No: D o not add to previous draw Performed By: #### 5 0608 #### [facility] [address] [facility] [place] [address], [facility] Hemoglobin (Bld) [Mass/Vol] 13.9 g/dL Normal 12.0-15.0 [facility] Comment on above: Order Comment: No: D o not add to previous draw Performed By: #### 5 0608 #### [facility] [address] [place] [id number], [facility] MCH (RBC) [Entitic mass] 29.6 pg Normal 27.0-33.0 [facility] Comment on above: Order Comment: No: D o not add to previous draw Performed By: #### 5 0608 #### [facility] [address] [place] [address], [facility] MCHC (RBC) [Mass/Vol] 32.6 g/dL Normal 32.0-35.0 [facility] Comment on above: Order Comment: No: D o not add to previous draw Performed By: #### 5 0608 #### [facility] [address] [place] [id number], [facility] MCV (RBC) [Entitic vol] 91.0 fL Normal 82.0-98.0 [facility] Comment on above: Order Comment: No: D o not add to previous draw Performed By: #### 5 0608 #### [facility] [address] Nucleated RBC/100 WBC (Bld) [Ratio] 0 % Normal 0-0 [facility] Comment on above: Order Comment: No: D o not add to previous draw Performed By: #### 5 0608 #### [facility] [address] [place] [address], [facility] PLAT CNT 233 10*3/uL Normal 150-400 [facility] Comment on above: Order Comment: No: D o not add to previous draw Performed By: #### 5 0608 #### [facility] [address] [place] [address], [facility] RBC (Bld) [#/Vol] 4.69 10*6/uL Normal 3.80-5.00 [facility] Comment on above: Order Comment: No: D o not add to previous draw Performed By: #### 5 0608 #### [facility] [address] WBC (Bld) [#/Vol] 8.19 10*3/uL Normal 4.00-10.60 [facility] Comment on above: Order Comment: No: D o not add to previous draw Performed By: #### 5 0608 #### [facility] [address] Cardiovascular Lab Reporton 06-17-2019 Cardiovascular Lab Report [facility] Patient Name: Elvia Gutiérrez [facility] A MR #: [id number] Department of Physician: Mike Polanco M.D. Division of Service Date: 06/16/2019 Cardiology Birthdate: 1975 Adult Cardiovascular Room #: 3AB 180893 [facility] [place] [address] Cardiovascular Laboratory Report FINAL IMPRESSIONS: 1. Angiographically [...] She can follow up with Dr. Pat Hutson, her family physician as scheduled. PROCEDURES: Bilateral [...] the left radial artery was obtained. A 6-Vietnamese glide sheath was inserted without difficulty. Bilateral [...] Anderson M.D. Date Trans: 06/17/2019 04:09 A/adela [id number] cc: Pat Huston M.D. [address] [place] [address] [address], [facility] [address] Normal [facility] HEMOGLOBIN A1Con 06-17-2019 HbA1c (Bld) [Mass fraction] 4.8 % Normal 4.0-6.0 [facility] Comment on above: Order Comment: Yes: Add to Previous draw if able Performed By: #### 5 2701, 09321 #### [facility] [address] [facility] [place] [address], [facility] HbA1c (Bld) [Mass fraction] 91 mg/dL Normal 70-126 [facility] Comment on above: Order Comment: Yes: Add to Previous draw if able Performed By: #### 5 6101, 55402 #### [facility] [address] [place] [address], [place] LIPID PROFILEon 06-17-2019 Cholesterol [Mass/Vol] 209 mg/dL High 120-200 [facility] Comment on above: Order Comment: Yes: Add to Previous draw if able Result Comment: CHOL ESTEROL REFERENCE RANGE: 20 YEARS AND OLDER CARDIOVASCULAR RISK Less than 200 mg/dl Low Risk 200 to 239 mg/dl Borderline Risk 240 mg/dl and greater High Risk Performed By: #### 1 1580, 14204, 96429, 36601 #### [facility] [address] [place] [address], [place] Cholesterol in HDL [Mass/Vol] 35 mg/dL Normal 23-92 [facility] Comment on above: Order Comment: Yes: Add to Previous draw if able Result Comment: Slig ht variation in normal range could be due to gender and/or age. HDL CHOLESTEROL REFERENCE RANGE: 20 years and older Cardiovascular Risk > or =60 mg/dL Desirable 40 TO 59 mg/dL Low Risk <40 mg/dL High Risk Performed By: #### 1 0070, 25051, 14228, 91766 #### [facility] [address] [place] [address], [facility] Cholesterol in LDL [Mass/Vol] 139 mg/dL High 0-130 [facility] Comment on above: Order Comment: Yes: Add to Previous draw if able Result Comment: LDL IS A CALCULATION LDL IS ONLY VALID IF THE TRIG IS LESS THAN 400. Performed By: #### 1 0070, 60967, 75762, 37529 #### [facility] [address] [place] [address], [place] Cholesterol.total/C holesterol in HDL [Mass ratio] 6.0 {ratio} High 0.0-4.5 [facility] Comment on above: Order Comment: Yes: Add to Previous draw if able Performed By: #### 1 0070, 40780, 82322, 46697 #### [facility] [address] [place] [address], [place] NON-HDL CHOLESTEROL 174 mg/dL Normal [facility] Comment on above: Order Comment: Yes: Add to Previous draw if able Performed By: #### 1 0070, 04475, 70055, 13831 #### [facility] [address] [place] [address], [place] Triglyceride [Mass/Vol] 174 mg/dL High 40-149 [facility] Comment on above: Order Comment: Yes: Add to Previous draw if able Result Comment: TRIG LYCERIDE REFERENCE RANGE: 20 YEARS AND OLDER CARDIOVASCULAR RISK LESS THAN 150 mg/dl LOW RISK 150 TO 199 mg/dl BORDERLINE RISK 200 mg/dl AND GREATER HIGH RISK Performed By: #### 1 0070, 44262, 67542, 07928 #### [facility] [address] [place] [address], [facility] VLDL CHOL 35 mg/dL Normal 0-40 [facility] Comment on above: Order Comment: Yes: Add to Previous draw if able Performed By: #### 1 0070, 15745, 91920, 83247 #### [facility] [address] [place] [address], [facility] MAGNESIUM BLOODon 06-17-2019 Magnesium [Mass/Vol] 2.2 mg/dL Normal 1.9-2.7 [facility] Comment on above: Order Comment: No: D o not add to previous draw Performed By: #### 1 0070, 61225, 56728, 03660 #### [facility] [address] [place] [address], [facility] PHOSPHORUS BLOODon 9 Phosphate [Mass/Vol] 4.3 mg/dL Normal 2.5-5.0 [facility] Comment on above: Order Comment: No: D o not add to previous draw Performed By: #### 5 6101, 57433 #### [facility] [address] [place] [address], [facility] APTTon 06-16-2019 aPTT Coag (Bld) [Time] 27.3 s Normal 25.0-35.0 [facility] Comment on above: Result Comment: ALL [...] THIS PURPOSE. Performed By: #### 5 6101, 85503 #### [facility] [address] [place] [address], [facility] BASIC METABOLIC PANELon 08- Calcium [Mass/Vol] 9.3 mg/dL Normal 8.6-10.3 [facility] Comment on above: Order Comment: No: D o not add to previous draw Performed By: #### 1 0070, 94428, 50959, 22210, 06573 #### [facility] [address] [place] [address], [place] Chloride [Moles/Vol] 105 mmol/L Normal 98-107 [facility] Comment on above: Order Comment: No: D o not add to previous draw Performed By: #### 1 0070, 77465, 49259, 20850, 70265 #### [facility] [address] [place] [address], [place] CO2 [Moles/Vol] 23 mmol/L Normal 21-31 [facility] Comment on above: Order Comment: No: D o not add to previous draw Performed By: #### 1 0070, 66770, 40836, 69475, 10189 #### [facility] [address] [place] [address], [facility] Creatinine [Mass/Vol] 0.85 mg/dL Normal 0.60-1.20 [facility] Comment on above: Order Comment: No: D o not add to previous draw Performed By: #### 1 0070, 11765, 97340, 29784, 12850 #### [facility] [address] [place] [address], [place] GFR/1.73 sq M predicted among blacks MDRD (S/P/Bld) [Vol rate/Area] mL/min/{1.73_m2} Normal >60 [facility] Comment on above: Order Comment: No: D o not add to previous draw Performed By: #### 1 0070, 19410, 05185, 75014, 79317 #### [facility] [address] [place] [address], [facility] GFR/1.73 sq M predicted among non-blacks MDRD (S/P/Bld) [Vol rate/Area] mL/min/{1.73_m2} Normal >60 [facility] Comment on above: Order Comment: No: D o not add to previous draw Performed By: #### 1 0070, 73239, 80657, 45617, 44673 #### [facility] [address] [place] [address], [place] Glucose [Mass/Vol] 91 mg/dL Normal 70-100 [facility] Comment on above: Order Comment: No: D o not add to previous draw Performed By: #### 1 0070, 14237, 77924, 18469, 55895 #### [facility] [address] [place] [address], [facility] Potassium [Moles/Vol] 3.9 mmol/L Normal 3.5-5.1 [facility] Comment on above: Order Comment: No: D o not add to previous draw Performed By: #### 1 0070, 86115, 21739, 35806, 16959 #### [facility] [address] [place] [address], [place] Sodium [Moles/Vol] 136 mmol/L Normal 136-145 [facility] Comment on above: Order Comment: No: D o not add to previous draw Performed By: #### 1 0070, 56561, 88767, 97269, 31388 #### [facility] [address] [place] [address], [place] Urea nitrogen [Mass/Vol] 10 mg/dL Normal 7-25 [facility] Comment on above: Order Comment: No: D o not add to previous draw Performed By: #### 1 0070, 77307, 78562, 22680, 36644 #### [facility] [address] [place] [address], [place] FREE T3on 06-16-2019 Free T3 [Mass/Vol] 2.6 pg/mL Normal 2.5-3.9 [facility] Comment on above: Performed By: #### 1 0070, 14339, 54977, 94661, 45738 #### [facility] [address] FREE T4on 06-16-2019 Free T4 [Mass/Vol] 0.73 ng/dL Normal 0.71-1.85 [facility] Comment on above: Performed By: #### 1 0070, 70799, 78275, 12949, 60768 #### [facility] [address] [facility] [address] MAGNESIUM BLOODon 06-16-2019 Magnesium [Mass/Vol] 2.2 mg/dL Normal 1.9-2.7 [facility] Comment on above: Order Comment: No: D o not add to previous draw Miss Performed By: #### 1 0070, 04695, 48975, 64702, 64860 #### [facility] [address] PROTHROMBIN TIMEon 9 INR Coag (PPP) [Relative time] 1.06 {INR} Normal 0.91-1.16 [facility] Comment on above: Result Comment: ACCC [...] CHEST 1995;108:231S-246S. Performed By: #### 5 6101, 75730 #### [facility] [address] [place] [address], [facility] PT Coag (PPP) [Time] 13.8 s Normal 12.3-14.8 [facility] Comment on above: Result Comment: ALL RESULTS MUST BE INTERPRETED WITH RESPECT TO BLOOD DRAWING ARTIFACT OR DILUTION ERROR OF ANTICOAGULANT AT THE TIME OF SAMPLING. Performed By: #### 5 6101, 89321 #### [facility] [address] TSH3on 06-16-2019 TSH 3RD GENERATION 1.94 uIU/mL Normal 0.34-5.60 [facility] Comment on above: Performed By: #### 1 0070, 89363, 71084, 08467, 04822 #### [facility] [address] Vital Signs Date Time Vital Sign Value Performing Clinician Rosy huerta 05-24-2025 16:18-0400 Diastolic blood pressure 62 mm[Hg] Pat Huston MD Work Phone: [facility] 05-24-2025 16:18-0400 Heart rate 62 /min Pat Huston MD Work Phone: [facility] 05-24-2025 16:18-0400 Systolic blood pressure 107 mm[Hg] Pat Huston MD Work Phone: [facility] 10-09-2024 11:00-0500 Body height 165.1 cm Harlan Niño NP Work Phone: [facility] 10-09-2024 11:00-0500 Body mass index (BMI) [Ratio] 35.65 kg/m2 Harlan Niño NP Work Phone: [facility] 10-09-2024 11:00-0500 Body weight 97.18 kg Harlan Gillmor [employer] Work Phone: [facility] 10-09-2024 11:00-0500 Diastolic blood pressure 68 mm[Hg] Harlan Peggymor [employer]IV[employer]PER[employer] Work Phone: [facility] 10-09-2024 11:00-0500 Heart rate 58 /min Harlan Peggymor [employer]IV[employer]PER[employer]OR Work Phone: [facility] 10-09-2024 11:00-0500 SaO2% (BldA) [Mass fraction] 98 % Harlan Peggymor [employer]CEIVING SUPER[employer]OR Work Phone: [facility] 10-09-2024 11:00-0500 Systolic blood pressure 122 mm[Hg] Harlan Peggymor [employer]IVING [employer]PER[employer]OR Work Phone: [facility] 08-23-2024 11:16-0400 Body height 165.1 cm [facility] 08-23-2024 11:16-0400 Body mass index (BMI) [Ratio] 35.4 kg/m2 [facility] 08-23-2024 11:16-0400 Body weight 96.61 kg [facility] 08-23-2024 11:16-0400 Diastolic blood pressure 69 mm[Hg] [facility] 08-23-2024 11:16-0400 Heart rate 65 /min [facility] 08-23-2024 11:16-0400 Systolic blood pressure 100 mm[Hg] [facility] 09-07-2023 10:29-0500 Body height 165.1 cm MD Pat Huston Work Phone: [facility] 09-07-2023 10:29-0500 Body weight 97.52 kg MD Pat Huston Work Phone: [facility] Encounters Encounter Date Encounter Type Care Provider Facility Start: 05-24-2025 End: 05-24-2025 ambulatory Pat Huston MD Work Phone: [facility] Work Phone: Start: 05-24-2025 End: 05-24-2025 Patient encounter procedure Harlan Brandt [facility] [place] Work Phone: Start: 05-03-2025 End: 05-03-2025 ambulatory AB [facility] Start: 10-09-2024 End: 10-09-2024 Bamboo flowsheet Harlan Gillmercedr [employer]IVING [employer]PER[employer]OR Work Phone: [facility] [place] [facility] Start: 10-09-2024 End: 10-09-2024 Bamboo flowsheet Harlan Woodsmor [employer]CEIVING SUPER[employer]OR Work Phone: [facility] [place] [facility] Start: 10-09-2024 End: 10-09-2024 Office outpatient visit 25 minutes Harlan Peggyvik [employer]CEIVING SUPER[employer]OR Work Phone: [facility] [place] [facility] Comment on above: Abnormal MRI (Primar y Dx); Anisocoria; Tremor; Tension-type headache, not intractable, unspecified chronicity pattern; Vertigo; Primary insomnia Start: 10-09-2024 End: 10-09-2024 ambulatory HARLAN WOODSMERCEDR Not Available Start: 08-23-2024 Patient encounter status [facility] Start: 08-23-2024 End: 08-23-2024 ambulatory [facility] Work Phone: Start: 08-23-2024 End: 08-23-2024 Patient encounter procedure [facility] Physician [facility] Work Phone: Start: 02-28-2024 End: 02-28-2024 ambulatory HARLAN WOODSMOR Not Available Start: 09-07-2023 Telephone encounter Pat Huston [facility] Start: 09-07-2023 End: 09-07-2023 ambulatory Pat Huston Facility:[facility] Start: 09-07-2023 End: 09-07-2023 ambulatory MD Pat Huston Work Phone: [facility] Work Phone: Start: 09-07-2023 End: 09-07-2023 Patient encounter procedure MD Pat Huston Work Phone: [facility] [place] Work Phone: Start: 08-06-2023 End: 08-06-2023 ambulatory Pat Huston Other [employer] Other Start: 08-06-2023 Telephone encounter Pat Huston [facility] Start: 07-27-2023 End: 07-27-2023 ambulatory Pat Huston Other [employer] Other Start: 07-27-2023 Telephone encounter Pat Huston [facility] Start: 07-13-2023 End: 07-13-2023 ambulatory Pat Huston Other [employer] Other Start: 07-13-2023 Telephone encounter Pat Huston [facility] Start: 07-06-2023 End: 07-06-2023 ambulatory Pat Huston Other [employer] Other Start: 07-06-2023 Telephone encounter Pat Huston [facility] Start: 04-22-2023 ambulatory Kevon Serna acility:[facility] Start: 03-11-[address] VIDHI ANDERSON Facili ty:[facility] Start: 02-16-2023 End: 02-17-[address] JL REAL Facility:[facility] Start: 02-11-2023 End: 02-12-[address] VIDHI ANDERSON Facility:[facility] Start: 11-20-2022 Encounter for genera l adult medical examination without abnormal findings DR PAT HUSTON [facility] Start: 11-19-2022 End: 11-19-2022 ambulatory Pat Huston Other [employer] Other Start: 11-19-2022 Telephone encounter Pat Huston [facility] Start: 11-18-2022 End: 11-19-[address] PAT HUSTON Facility:[facility] Start: 11-18-2022 End: 11-19-2022 Encounter for general adult medical examination without abnormal findings DR PAT HUSTON Facility:[facility] Start: 11-04-2022 End: 11-05-[address] VIDHI ANDERSON Facility:[facility] Start: 07-10-2022 End: 07-11-[address] PAT HUSTON Facility:[facility] Start: 06-26-2022 Adult health examination Vielak Huston Other [employer] Other Start: 06-26-2022 Encounter for genera l adult medical examination without abnormal findings Pat Huston Other [employer] Other Start: 06-24-2022 End: 06-25-[address] PAT HUSTON Facility:[facility] Start: 06-09-2022 End: 06-10-[address] DOCTOR MEDINA Facility:[facility] Start: 06-16-2019 End: 06-17-2019 Patient encounter procedure ALESSANDRO BIRDIEPERICO Facility:[facility] Start: 10-27-2016 Gynecological examination normal Pat Huston Other [employer] Other Procedures Date Procedure Procedure Detail Performing Clinician Start: 09-07-2023 MRI of bilateral sasha asts with contrast MD Pat Huston Work Phone: Start: 08-12-2009 visit Pat Huston Other Start: 08-29-2007 Contraception care education Pat Huston Other Screening for malign ant neoplasm of breast Pat Huston Other Viral screening Pat Huston Other Plan of Treatment Date Care Activity Detail Author Start: 04-02-2025 End: 04-02-2025 Patient encounter procedure 04/02/2025 4:00 PM EDT [facility] [address] [facility] [place] [address] Harlan Niño, SURJIT [address] [place], [place] [facility] Start: 10-09-2024 End: 10-09-2024 Patient encounter procedure 10/09/2024 10:40 AM EST Office Visit [facility] [address] [place] [address] Harlan Niño NP [address] [place] Arrived [facility] [address] Comment on above: Arrived Comprehensive metabo lic 2000 panel - Serum or Plasma [facility] XR Pelvis and Hip - bilateral Views [facility] Payers Date Payer Category Payer Self-pay [id number] 2022 Blue Cross Blue Shield BCBS [id number] 2022 Unknown [id number] 2019 Unknown [id number] [id number] 1975 Unknown [id number] 2..840.1.290423.3.579.2. 647 1975 Unknown [id number] 2.16.840.1.607685.3.579.2. 593 1975 Unknown [id number] 2.16.840.1.784240.3.579.2. 593 1977 Unknown [id number] 2.16.840.1.927329.3.579.2. 593 1977 Unknown [id number] 2.16.840.1.009749.3.579.2. 593 1977 Unknown [id number] 2.16.840.1.752015.3.579.2. 593 1977 Unknown [id number] 2.16.840.1.840418.3.579.2. 593 1977 Unknown [id number] 2.16.840.1.593808.3.579.2. 593 1977 Unknown [id number] 2.16.840.1.565656.3.579.2. 593 1977 Unknown [id number] 2.16.840.1.976804.3.579.2. 1259 1975 Unknown [id number] 2.16.840.1.765211.3.579.2. 1259 1959 Self-pay [id number] Unknown [id number] Unknown Other1 (STD) [id number] Unknown [id number] 2.16.840.1.851008.3.579.2. 531 Unknown [id number] 2.16.840.1.186891.3.579.2. 531 Social History Date Type Detail Facility Unknown if ever smoked [employer] Other Start: 02-28-2024 End: 10-09-2024 Sex Assigned At [place] Other Start: 1975 Sex Assigned At Female [facility] Start: 04-20-2022 End: 02-25-2024 Tobacco smoking status NHIS Never smoked tobacco (finding) [facility] Start: 02-25-2024 Tobacco use and exposure Smokeless tobacco non-user [facility] Start: 02-28-2024 End: 10-09-2024 Alcoholic beverage intake Lifetime non-drinker (finding) [facility] Start: 02-28-2024 End: 10-09-2024 History of Social function [facility] Start: 02-27-2024 Gender identity Identifies as female gender (finding) [facility] Sex Female (finding) [facility] Clinical Notes 11-04-2022 to 05-03-2025 Note Date & Type Note Facility 05-03-2025 Note [facility] Cardiology Clinic Note Chief Complaint: Patient here for 1 year follow up CAD, chest pain, SOB, and palpitations. She had routine labs with lipid panel in Jul 2024, and PFT's this past December. Palpitations remain occasional for her, no more than normal. C/o intermittent chest pain and SOB. HPI: Elvia Gutiérrez is a 49 y.o. female with a history of Prinzmetal's [...] of breath and palpitations No chest pain UPDATE 05/03/2025 Has been having more frequent chest discomfort over the past several months; this typically occurs when she is at work. It is retrosternal, pressure-like, it does not cause her to stop walking however it is uncomfortable. She denies significant shortness of breath. She has had intermittent palpitations that are no worse than usual. No significant lightheadedness or dizziness. She did see one of our scrap hooker Dr. Guevara and they discussed the potential for either a loop recorder or an EP study. They agreed to monitor her for now. Cardiology ROS: Review of Systems Cardiovascular: Positive for chest pain, dyspnea on exertion and palpitations ( occasional ). Neurological: Positive for dizziness and light-headedness. All other systems reviewed and are negative. Past Medical History She has a past medical history of Hypertension, Paroxysmal tachycardia (CMS/HCC), Prinzmetal angina, and WPW (Xwsfa-Pkijcmogg-Hbgzg syndrome). Surgical History She has a past [...] and Propoxyphene n-acetaminophen Medications Current Outpatient Medications: buPROPion XL (Wellbutrin XL) 300 mg 24 hr tablet, Take 300 mg by mouth in the morning., Disp: , Rfl: clopidogrel (Plavix) 75 mg tablet, TAKE 1 TABLET BY MOUTH ONCE DAILY DIRECTED, Disp: 90 tablet, Rfl: 3 dilTIAZem CD (Cardizem CD) 120 mg 24 hr capsule, TAKE 1 CAPSULE BY MOUTH IN THE MORNING, Disp: 90 capsule, Rfl: 3 DULoxetine (Cymbalta) [address] capsule, Take 30 mg by mouth in the morning., Disp: , Rfl: hydroCHLOROthiazide (HYDRODiuril) 25 mg tablet, TAKE 1 TABLET BY MOUTH IN THE MORNING, Disp: 90 tablet, Rfl: 3 isosorbide mononitrate ER (Imdur) 120 mg 24 hr tablet, TAKE 1 TABLET BY MOUTH IN THE MORNING (DO NOT CRUSH OR CHEW), Disp: 90 tablet, Rfl: 3 metoprolol tartrate (Lopressor) 25 mg tablet, TAKE 1 TABLET BY MOUTH IN THE MORNING AND AT BEDTIME, Disp: 180 tablet, Rfl: 3 nitroglycerin (Nitrostat) 0.4 mg SL tablet, Place 1 tablet (0.4 mg) under the tongue every 5 (five) minutes if needed for chest pain. May repeat dose every 5 minutes for up to 3 doses total., Disp: 50 tablet, Rfl: 0 rosuvastatin (Crestor) 40 mg tablet, TAKE 1 TABLET BY MOUTH AT BEDTIME, Disp: 90 tablet, Rfl: 3 Last Recorded Vitals BP 106/72 (BP Location: Left arm, Patient Position: Sitting) Pulse 75 Ht 1.676 m (5' 6 ) Wt 94.3 kg (208 lb) SpO2 95% BMI 33.57 kg/m??? Physical Examination: GENERAL: alert and oriented [...] DLCO may be secondary to pulmonary hypertension and/o (more content not included)... [facility] 07-27-2023 Evaluation note Encounter Date Diagnosis Assessment Notes Jul, Abnormal mammogram (ICD-10 - R92.8) [facility] Other 09-19-2023 Evaluation note* Encounter Date Diagnosis Assessment Notes Treatment Notes Treatment Clinical Notes Jun, Abnormal mammogram of right breast (ICD-10 - R92.8) [facility] Other 09-12-2023 Evaluation note* Encounter Date Diagnosis Assessment Notes Treatment Notes Treatment Clinical Notes Jun, Screening mammogram for breast cancer (ICD-10 - Z12.31) [facility] [employer] Other 01-11-2023 NoteCARDIAC STRESS TEST Requesting Physician: [...] 7. Clinical correlation is recommended.[facility] note[facility] InformationN[facility] Other Evaluation noteNo assessment information available [facility] Work Phone: Evaluation note* Diagnosis Onset Date Resolution Status Bilateral hip pain acute [facility] Work Phone: Evaluation note* Diagnosis Abnormal MRI- Primary Other nonspecific (abnormal) findings on radiological and other examinations of body structure Anisocoria Tremor Abnormal involuntary movements Tension-type headache, not intractable, unspecified chronicity pattern Vertigo Dizziness and giddiness Primary insomnia Persistent disorder of initiating or maintaining sleep documented in this encounter [facility] N[facility] - Reported* Type Description Date [...] marrow donation 2014 Hospitalization History see above [facility] Other History general Narrative - Reported* Type [...] Outpatient, Surgical History Problem Title : NON HEALTHCARE SCIENCE SPECIALIST SURGERIES: Right knee arthroscopy, Problem Status : [...] Status : Active, Hospitalization History see above [facility] Other Reason for referral (narrative)No reason for referral information [facility]Mem[facility] Work Phone: Summary Purpose Family History No Family History Records Found Relationship Condition Age at Onset Recorded Date/T porfirio father Hypertension Unknown Heart disease Unknown History of stroke Unknown mother Hypertension Unknown Advance Directives No Advanced Directives Records Found Advance Directive Response Recorded Date/ Time Advance Directives No August 9:55am Advance Directive Response Recorded Date/ Time Advance Directives No August 10:55am Hospital Course Note MR#: [id number] [facility] Pt. Name: Elvia Gutiérrez Admitted: 06/16/2019 Discharged: 06/17/2019 Date of : 1975 Physician: Alessandro Garrido MD DISCHARGE SUMMARY PRIMARY DIAGNOSES: 1. Typical chest pain with abnormal stress test. Post heart catheterization, which demonstrated no significant coronary artery stenosis. 2. Major depressive disorder. 3. Lower end of normal T4 with normal TSH. 4. Nntta-Lodmjhnmi-Ixnly. HOSPITAL COURSE: The patient is a 43-year-old [...] pain Reason for Visit Bilateral hip pain Chief Complaint Admit Date 6 Month Follow up May 24, 2025 3:36 pm Additional Source Comments INFORMATION SOURCE (unrecogn ized section and content) DATE CREATED AUTHOR 09/18/2019 [facility] DATE CREATED AUTHOR AUTHOR'S ORGANIZ ATION 03/07/[address] [facility] DATE CREATED AUTHOR AUTHOR'S ORGANIZ ATION 10/14/2023 [facility] DATE CREATED AUTHOR AUTHOR'S ORGANIZ ATION 10/11/2024 [facility] EPIC DATE CREATED AUTHOR AUTHOR'S ORGANIZ ATION 06/08/[address] [facility] REASON FOR VISIT (unrecogniz ed section and [...] August 23, 2024 End: August 23, 2024 Vehicle Controls Engineer Relationship Specialty Start Date End Date Pat Huston MD [address] [place] [id number] PCP - General 02/27/24 Vehicle Controls Engineer Relationship Specialty Start Date End Date Pat Huston MD [address] [place] [id number] PCP - General 02/27/24 Jl Real DO [address] [address] Referring Physician Neurology 10/09/24 Team Status: Inactive Member Role Status Dates Pat Huston MD Primary Care Provider Active Start: May 24, 2025 End: May 24, 2025 Harlan Niño APRN Attending Provider Active Start: May 24, 2025 End: May 24, 2025 Goals (unrecognized section and content) Goals may [...] BE BASED ON THE PRIMARY CLINICAL RECORDS. [employer] provides no warranty or guarantee of the accuracy or completeness of information in this document.
== END 2025-06-29 09:01 | disposition home or self-care (01) ==
LOC: MRI 09:00
PROVIDERS: PCP Family Medicine; Visit Provider Nurse Practitioner Family
DX: R90.89 Other abnormal findings on diagnostic imaging of central nervous system (principal); R47.89 Other speech disturbances
CPT/HCPCS: 70553; A9575

== ENCOUNTER 2025-08-22 11:37 | Emergency (ER) | payer BC, SELFPAY ==
[2025-08-22 11:51] VITALS: BP 114/75; PULSE 57; TEMP 37.1; O2SAT 100; BMI 36.4
[2025-08-22 11:55] VITALS: BP 114/75; O2SAT 96
[2025-08-22 12:00] VITALS: PULSE 60; O2SAT 97
--- OUTSIDE RECORDS SUMMARY | 2025-08-22 12:00 | XMS_ITS | Clinical Summary ---
Author Organization [facility] Address [address] [place] [address] Care Team Providers Care Estimator Project Manager Name Role Phone Pat Dominique MD Primary Care Provider [phone] Nell Aguilar DO Unavailable [phone] Allergies Active AllergyReactionsCriticalityNoted DateCommentsMeperidine HclGI intolerance 02/25/2024Oxycodone-AcetaminophenGI uvhnbdltwwi42/03/2024 Medications MedicationSigDispense QuantityRefillsLast FilledStart DateEnd DateStatus buPROPion XL (Wellbutrin XL) 300 MG 24 hr tablet Take 1 tablet by mouth DailyActive dilTIAZem CD (Cardizem CD) 120 MG 24 hr capsule Take 120 mg by mouth in the morning.12/01/2023ctive DULoxetine (Cymbalta) [address] capsule 1 capsule 1 (one) time each day at the same timeActive hydroCHLOROthiazide (HYDRODiuril) 25 MG tablet Take 25 mg by mouth in the morning.12/01/2023ctive isosorbide mononitrate ER (Imdur) 120 MG 24 hr tablet Take 120 mg by mouth in the morning.12/01/2023ctive metoprolol tartrate (Lopressor) 25 MG tablet Take 25 mg by mouth in the morning and 25 mg in the evening.12/01/2023ctive rosuvastatin (Crestor) 40 MG tablet Take 40 mg by mouth at xesfzmv0612/01/2023ctive nitroglycerin (Nitrostat) 0.[address] 0.4 mg under the tongue every 5 (five) minutes if needed for chest pain Active Active Problems ProblemNoted DateDiagnosed DatePrimary fhhznvsy22/06/2024Tension-type headache, not zvrwttcmsob12/06/8507Budaes44/06/7937Fnkzmvx96/06/2024Eye exam abnormal 02/25/2024bnormal MRI02/25/20246462Rsbjxsmpzn24/03/2024Intractable tension-type mmmyhjat19/03/2024erebrovascular gnstsqp8702/25/2024 Family History Medical HistoryRelationNameCommentsCoronary artery diseaseFatherHyperlipidemia FatherStrokeFatherHyperlipidemiaMotherHypertensionMotherOsteoarthritisMother CancerSisterHyperlipidemiaSisterKidney diseaseSisterOsteoarthritisSisterRelation NameStatusCommentsFatherMotherSister Social History Tobacco UseTypesPacks/DayYears UsedDateSmoking Tobacco: NeverSmokeless Tobacco: Never Tobacco Cessation:Counseling Given: Not Answered Alcohol UseStandard Drinks/WeekCommentsNever0 (1 standard drink = 0.6 oz pure alcohol)CommentsUnknownSex and Gender InformationValueDate RecordedSex Assigned at NdqzaFmtaxb74/05/2024 3:50 PM EDTLegal GxhAkizbr07/15/2023 7:17 PM EDTGender EaijarjbZaeouj11/05/2024 3:50 PM EDTSexual OrientationNot on file Last Filed Vital Signs Vital SignReadingTime TakenCommentsBlood Gkwhrsqz845/6810/09/2024 11:00 AM EST Wsbjt998610/09/2024 11:00 AM ESTTemperature--Respiratory Rate--Oxygen Saturation 98%10/09/2024 11:00 AM ESTInhaled Oxygen Concentration--Yshgum62.2 kg (214 lb 4 oz)10/09/2024 11:00 AM CCARzscsk589.1 cm (5' 5 )10/09/2024 11:00 AM ESTBody Mass Index35.6510/09/2024 11:00 AM EST Plan of Treatment Not on file Insurance MemberSubscriberPlan / Payer (Effective 2022-Present)Name:Elif Fox Member ID:[id number] Relation to Subscriber:SelfName:Elif Fox Subscriber ID:[id number] Payer ID:Not on file Type:Not on file Address: [facility] [id number] [place] [address] Care Teams Team MemberRelationshipSpecialtyStart DateEnd Date Pat Dominique MD PCP - General02/27/24 Nell Aguilar DO [address] [place] [address] Referring VsujlfuxnBxdhyonwj14/16/24
--- OUTSIDE RECORDS SUMMARY | 2025-08-22 12:00 | XMS_ITS | Clinical Summary ---
Author Organization [facility] tem Address [id number] [address] [place] [address] Care Team Providers Care Corporate Logistics Manager Name Role Phone Pat Dominique MD Primary Care Provider [phone] Allergies Active AllergyReactionsCriticalityNoted DateCommentsPropoxyphene N-Acetaminophen Tsrwxljd74/28/9981GipcvxdvujqiRvpap93/28/2558NpunyyyjlkSrbwjruv79/21/2014 Oxycodone-EysfreirrcullSeiqmkgj77/21/2014 Medications MedicationSigDispense QuantityRefillsLast FilledStart DateEnd DateStatus buPROPion XL (WELLBUTRIN XL) 300 mg 24 hr tablet bupropion HCl XL 300 mg 24 hr tablet, extended releaseActive dilTIAZem CD (CARDIZEM CD) 120 mg 24 hr capsule Cartia XT 120 mg capsule,extended releaseActive DULoxetine (CYMBALTA) 30 mg capsule duloxetine 30 mg capsule,delayed releaseActive isosorbide mononitrate (IMDUR) 120 mg 24 hr tablet daily.Active Active Problems No known active problems Family History Medical HistoryRelationNameCommentsGlaucomaFatheron dropsRetinal detachment FatherMacular degenerationMaternal GrandmotherDiabetesMotherMacular degeneration MotherRelationNameStatusCommentsFatherMaternal GrandmotherMother Social History Tobacco UseTypesPacks/DayYears UsedDateSmoking Tobacco: NeverSmokeless Tobacco: NeverPHQ-2AnswerDate RecordedTotal Swehe739/10/2022ChildcareAnswerDate Recorded GpuoblzbtWwddqvg42/10/2019EmploymentAnswerDate RecordedEmploymentUnknown 04/03/2019CommentsUnknownSex and Gender InformationValueDate RecordedSex Assigned at BirthNot on fileLegal KvuZombvu20/04/2015 2:10 PM EDTGender Identity Not on fileSexual OrientationNot on file Last Filed Vital Signs Vital SignReadingTime TakenCommentsBlood Nduqgebi580/7708 10:39 AM EDT Ujfyp178306/03/2022 10:39 AM EDTTemperature--Respiratory Rate--Oxygen Saturation-- Inhaled Oxygen Concentration--Ihqehg59.1 kg (214 lb)06/03/2022 10:39 AM EDT Gpknfm707.6 cm (5' 4 )06/03/2022 10:39 AM EDTBody Mass Index36.7306/03/2022 10:39 AM EDT Plan of Treatment Health MaintenanceDue DateLast DoneCommentsDepression Kaemdruap67/10/1989Tobacco Ulvmraxfb51/10/1989Adult BMI Emmtheirp01/10/1995DTaP,Tdap and Td Vaccines (1 - Tdap)1996Pap Smear1998COVID-19 Vaccine ( - 2024- season) 510/, 11/21/2020, 10/23/2020Influenza Ustzgph7406/25/2025 08/19/2018 Medical Devices Not on file Insurance Care Teams Team MemberRelationshipSpecialtyStart DateEnd Date Pat Dominique MD [facility] [place] [address] PCP - GeneralFamily Bmcywocd76/28/21
--- OUTSIDE RECORDS SUMMARY | 2025-08-22 12:00 | XMS_ITS | Clinical Summary ---
Author Organization [facility] Address [address] [place] [address] Care Team Providers Care Trade Mark Attorney Name Role Phone Amos Vazquez MD Primary Care Provider [phone] Addie Mojica RN Unavailable [phone] Allergies Active AllergyReactionsCriticalityNoted DateCommentsPropoxyphene N-Acetaminophen Hkieeyjo40/21/8365UtaddtpuiqYytaxekc79/21/2014Oxycodone-AcetaminophenVomiting 12/15/2013 Medications MedicationSigDispense QuantityRefillsLast FilledStart DateEnd DateStatus PRISTIQ 50 mg 24 hr tablet Take 50 mg by mouth once daily.12/14/2013ctive HYDROcodone-acetaminophen 5-325 mg per tablet Take 1-2 tablets by mouth every 6 hours as needed for Pain. 30 tablet ctive Active Problems ProblemNoted DateDiagnosed LnrzDdbwsq73/05/2014 Assessment & Plan (12/27/2013 11:30 AM EST): She had pyuria on her screening dipstick. She was on Levaquin at the time. She is currently asymptomatic. Will repeat UA with culture for possible occult UTI. Bone marrow donor11/14/2013 Assessment & Plan (01/16/2014 2:39 PM EDT): Ms. Gutiérrez is now post-op day 7. She is slowly healing. She still remains anemic due to acute bloodloss as a result of the harvest. Although her MCV is at the lower limit of normal, I did recommend iron supplements (OTC) as directed on the label for the next 2 weeks in order to improve her recovery. She should continue to avoid heavy lifting for the next 7 days. Assessment & Plan (12/27/2013 11:28 AM EST): Ms. Gutiérrez is a volunteer bone marrow donor for her sister. He recently underwent complete evaluation and no contraindications or concerns were found. Ms. Gutiérrez???s ASA risk is Class I. Ms. Gutiérrez has been informed of the risks, benefits, alternatives, personnel, and the procedures involved in hematopoietic progenitor cell (HPC) harvest. There is no past history of hematologic, immunological, or malignant disease. There is no evidence of inherited conditions, sepsis, or recent attenuated vaccination to indicate risk of transmissable disease to the HPC recipient. There are no contraindications to anesthesia and no history of osteoporosis for the harvest of HPC, Marrow. Patient is suitable and eligible to proceed with HPC harvest and has agreed to proceed. We again reviewed the harvest procedure as well as the recommendation for postoperative wound care,including the local application of ice for the first couple of days followed by the use of local heat. The pressure dressing should remain until the morning after the procedure, after which it can bereplaced with light gauze and tape until the puncture wounds are scabbed and dry. Ms. Gutiérrez was provided with prescriptions for oxycodone/acetaminophen to control the pain during the first few days after the harvest. He was advised that he could use acetaminophen for the more miuld pain immedialtey postoperatively and for the next few days following the procedure, but to avoid aspirin or nonsteroidal anti-inflammatory medications until 7 days post-operatively. Ms. Gutiérrez was given opportunities to ask questions, which wree answered to her satisfaction. Assessment & Plan (12/15/2013 9:23 AM EST): I spent time with the donor describing in detail the procedure of bone marrow collection and the potential adverse effects. I explained how the procedure would be performed. I described that he will be placed prone and the area overlying the buttocks up to the midback would be washed with surgical soap and disinfectants to sterilize the skin in order to prevent infection. I showed him the approximate areas where the needle would be puncturing the skin overlying the posterior iliac crests. I explained that the main risks of the procedure were pain related to local bruising and swelling of the soft tissue and deeper pain related to the bone. The soft tissue pain and swelling will persist for at least 7 to 10 days. I discussed that the majority of donors report only minimal residual pain by two weeks after the procedure. I emphasized that he should not return to vigorous exercise until at least 14 days after the procedure. We reviewed the potential adverse effect of the procedure including the small risk of infection at the puncture wound sites ant the rare possibility of deep tissue or bone infection. I reviewed the signs of infection, including increased redness, pain and purulent discharge. We also discussed the expected blood loss due to the aspiration of red cells with the marrow, bloody oozing into the soft tissues and possible localized blood collection into a hematoma. The latter complication may lead to pain radiating down the buttock or leg and possible parethesias if there is a compression of the sciatic nerve. We discussed the possibility of more prolonged back pain, most commonly due to mechanical or musculoskeletal trauma involving the sacroiliac joint. I also mentioned the rare complication of inadvertently entry into the thecal sac within the sacrum by the bone marrow harvest needle, resulting in a postoperative spinal headache. We also discussed the volume loss associated with bone marrow harvest and the need for vigorous intravenous hydration. We also discussed the potential need for blood transfusion after the procedure. I discussed that blood transfusion would not be indicated if the post-procedure hematocrit was 22% or above, but that transfusion at lower hematocrit values would be appropriate for medical and surgical safety. Because the patient might require transfusions of blood products, I reviewed the risks involved. I explained that the greatest risk was human error and how blood is signed off in the blood bank and transfusion area to prevent this problem. Then, I discussed additional risks including allergic reactions which could be mild or serious and how they would be treated, the risk of transmission of HIV (1/6,000,000 units), HBV (1/60,000 units) and HCV (1/100,000 units). Ms. Gutiérrez agreed that she wouldnot wish to receive a blood transfusion unless indicated for medical or surgical reasons. We discussed the criteria for discharge after the postoperative observation period. These include adequate pain control with oral medication, ability to drink fluid without nausea and to take oral medication, stable vital signs, minimal wound drainage, ability to ambulate and void without difficulty. I indicated that most donors are stable and comfortable with diaphragm later in the day of the procedure. If the Ms. Gutiérrez fails to meet any of the discharge criteria she will remain overnight under observation. I suggested that walking was beneficial to prevent stiffness after the procedure, however I caution against any high-impact activity as the bone heals for the first two weeks post-procedure. We reviewed the recommendation for postoperative wound care, including the local application of icefor the first couple of days followed by the use of local heat. The pressure dressing should remainuntil the morning after the procedure, after which it can be replaced with light gauze and tape until the puncture wounds are scabbed and dry. He was advised that she could use acetaminophen for painin the perioperative period, but to avoid aspirin or nonsteroidal anti- inflammatory medications until 7 days before and after the procedure. Ms. Gutiérrez was given opportunities to ask questions, which wree answered to her satisfaction. Afterher questions were answered, she signed consent for bone marrow collection, including transfusion if needed. Family History Medical HistoryRelationCommentsHTN [Other]FatherIschemic Heart DiseaseFatherHTN [Other]MotherLeukemia [Other]Sister 3RelationStatusCommentsDaughter 1Alive Daughter 2AliveFatherAliveMotherAliveSister 1AliveSister 2AliveSister 3 Social History Tobacco UseTypesPacks/DayYears UsedDateSmoking Tobacco: NeverSmokeless Tobacco: NeverAlcohol UseStandard Drinks/WeekCommentsNo0 (1 standard drink = 0.6 oz pure alcohol)CommentsNoSex and Gender InformationValueDate RecordedSex Assigned at BirthNot on fileLegal TdeGghebr71/02/2012 8:55 AM ESTGender Identity Not on fileSexual OrientationNot on fileOccupationIndustryJob Start DateJob End DateCardiovascular TechNot on fileNot on fileNot on file Last Filed Vital Signs Vital SignReadingTime TakenCommentsBlood Tmedrkto174/6903 2:10 PM EDT Umjpf3254 2:10 PM MZXEjxnctxfyog43.8 ??C (98.2 ??F)01/16/2014 2:10 PM EDTRespiratory Sgrt9311 2:10 PM EDTOxygen Euavmmfsxy93%01/16/2014 2:10 PM EDTInhaled Oxygen Concentration--[place]71 kg (200 lb 9.9 oz)01/16/2014 2:10 PM CMIJretuw515 cm (5' 4.96 )01/16/2014 2:10 PM EDTBody Mass Index33.42 01/16/2014 2:10 PM EDT Plan of Treatment Health MaintenanceDue DateLast DoneCommentsAnxiety Hlrklzdvm63/10/1995Depression Gfmyjbchw51/10/1995Hepatitis C Efocpiifh16/10/1995DTaP,Tdap,Td Vaccine (1 - Tdap)1996Hepatitis B Vaccine (1 of 3 - 19+ 3-dose series)1996 Cervical Cancer Ugdugcbxu37/10/1998Mammogram Mowecxomh07/10/2017CT Colonography 2Cologuard (FIT-DNA)1655Sfabdjdpzha40/10/2022Colorectal Cancer Fsgjjkjrm57/10/2022Diabetes Tuhrekfrq60, 12/15/2013Fecal Occult Blood2022Lipid Wchkoipri76/10/5799Zfurdaustfvls15/10/2022Covid-19 Vaccine ( - season)2025Influenza Vaccine (#1)2025HIV QsotphppsAutawcpas55/21/2014 Procedures Procedure NamePriorityDate/TimeAssociated DiagnosisCommentsCOMPREHENSIVE METABOLIC JKRYBBuqcdwi52/05/2014 8:48 AM EST Bone marrow donor IDM PANEL IUJRESmbupur23/21/2014 12:10 PM EST Bone marrow donor from Last 3 Months or Most Recently Relevant to Health Maintenance Results * (ABNORMAL) COMP METABOLIC PANEL (12/27/2013 8:48 AM EST)ComponentValueRef RangeTest MethodAnalysis TimePerformed AtPathologist SignatureProtein, Total 7.06.0 - 8.4 g/dLMERCY [facility]ALTH [facility] MAIN LABORATORYAlbumin4.03.5 - 5.0 g/dL [facility] MA[facility] LABORATORYCalcium9.08.5 - 10.5 mg/dLMERCY HEALTH [facility] MAIN LABORATORYBilirubin, Total0.40.0 - 1.5 mg/dLWVUMEDICINE BARN[facility]VILLE [facility] LABORATORYAlkaline Szuzyfjkebj4123 - 150 U/LCOHIOHE[facility] LAB[facility]ATORY LPZ602 - 40 U/LCOHIOHE[facility] AXJMLAPYVFKnmkmgz46(L)65 - 100 mg/dL [facility] LABORATORYBUN7(L)8 - 25 mg/dLWVUMEDICINE BARNESVILLE [facility] LABORATORYCreatinine0.810.70 - 1.40 mg/dLWVUMEDICINE BARN[facility]VILLE [facility] LAB[facility]ORY Xbpaob206756 - 148 mmol/LCOHIOHEALTH [facility]ARDIN [facility] LABORATORYPotassium4.03.5 - 5.0 mmol/LCOHIOHEALTH [facility] MAIN DFSRQPUIEVGiafmvnj72154 - 110 mmol/LCOHIOHEALTH [facility] PLLRIRWBOGWR07000 - 32 mmol/LCOHIOHEALTH [facility]ARDIN [facility] LABORATORYAnion Gap70 - 15 mmol/LCOHIOHEALTH [facility] SOLQIAQWIWCXQ334 - 45 U/LCOHIOHEALTH HARDIN [facility]OR[facility] LABORATORYeGFR->60WV[facility] eGFR-All Other Races>60.[facility] LABORATORYComment: eGFR (Estimated GFR) Units of measure: mL/min/1.73 meters squared eGFR is derived from the reexpressed MDRD Study equation using the following parameters: serum creatinine, age, gender and race. The creatinine assay has been calibrated to be traceable to IDMS. An eGFR <60 mL/min/1.73m2 for >3 months is consistent with chronic kidney disease. Refer to KDOQI guidelines for clinical interpretation. Specimen (Source)Anatomical Location / LateralityCollection Method / Volume Collection TimeReceived TimeBlood specimen (specimen)BLOOD SPECIMEN / Unknown 12/27/2013 8:48 AM EST12/27/2013 8:50 AM EST Narrative Authorizing ProviderResult TypeResult StatusRegis Cr MDLABORATORYFinal ResultPerforming OrganizationAddressCity/State/ZIP CodePhone Number [facility] [address] [place] [address] * (ABNORMAL) IDM PANEL ADULT (12/15/2013 12:10 PM EST)ComponentValueRef Range Test MethodAnalysis TimePerformed AtPathologist SignatureHBsAgNegative or NonreactiveNEGNRWVUMEDICINE BARNESVILLE HOSPITAL LABORATORYanti-HCVNegative or NonreactiveNEGNRWVUMEDICINE BARNESVILLE [facility] LABORATORYanti-HIV1/2Negative or NonreactiveNEGNRWVUMEDICINE BARNESVILLE [facility]OS[facility]ITAL LABORATORYanti-HBcNegative or NonreactiveNEGNRCLEVELAND CLINIC MAIN LABORATORYanti-HTLV I/IINegative or NonreactiveNEGNRMER[facility] MAIN LABORATORYSTSNegative or Nonreactive NEGHOLZER [facility] SYSTEM LABORATORYCMVPositive or Reactive(A)NEGHOLZER HEALTH SYSTEM LABORATORYHIVNATNegative or NonreactiveNEGHOLZER HEALTH SYSTEM LABORATORYHCVNATNegative or NonreactiveNEGBLUFFTON HOSPITAL MAIN LABORATORY HBVNATNegative or NonreactiveNEGHOLZER HEALTH SYSTEM LABORATORYWNVNAT Negative or NonreactiveNEGHOLZER HEALTH SYSTEM LABORATORYChagasNegative or NonreactiveNEGHOLZER HEALTH SYSTEM LABORATORYExpiration of [id number] Test kits are FDA approved for Donor Screening Testing. Test performed by: [facility], [address] [place] [id number], CLIA No. [id number].[facility] LABORATORYSpecimen (Source)Anatomical Location / LateralityCollection Method / VolumeCollection TimeReceived TimeBlood specimen (specimen)BLOOD SPECIMEN / Epnthlc9012/15/2013 12:10 PM EST12/15/2013 12:16 PM EST Narrative Authorizing ProviderResult TypeResult StatusAamiguel angel Cr MDLABORATORYFinal ResultPerforming OrganizationAddressCity/State/ZIP CodePhone Number [facility] [address] [place] [address] from Last 3 Months or Most Recently Relevant to Health Maintenance Insurance * Guarantor: Elif Gutiérrez TypeRelation to PatientDate of BirthPhone Billing AddressPersonal/EdeewmEjvo1975 [address] [address] * Guarantor: Gutiérrez, Elif AAccount TypeRelation to PatientDate of BirthPhone Billing JwakyxdZxzefCrym1975 [address] [address] Care Teams Team MemberRelationshipSpecialtyStart DateEnd Amos Vazquez MD PCP - GeneralFamily Medicine11/15/13 Addie Mojica, BELÉN [address] [place] [address] Registered NurseBlood and Marrow Transplant12/06/13
--- OUTSIDE RECORDS SUMMARY | 2025-08-22 12:00 | XMS_ITS | Clinical Summary ---
Author Organization [facility] Address [address] [place] [address] Care Team Providers Care Furnace Hand Name Role Phone Pat Dominique MD Primary Care Provider [phone] Allergies Active AllergyReactionsCriticalityNoted ZqlqAywrgkngMwleinuopuhjOirlw92/28/2021 MeperidineGI intolerance,Other12/15/2013Oxycodone-AcetaminophenOther,GI avuszjaewnp57/21/2014Propoxyphene N-AcetaminophenOther,GI weibbhdqlub65/21/2014 Medications MedicationSigDispense QuantityRefillsLast FilledStart DateEnd DateStatus buPROPion XL (Wellbutrin XL) 300 mg 24 hr tablet Take 300 mg by mouth in the morning.Active DULoxetine (Cymbalta) [address] capsule Take 30 mg by mouth in the morning.Active hydroCHLOROthiazide (HYDRODiuril) 25 mg tablet Indications:Essential hypertensionTAKE 1 TABLET BY MOUTH IN THE MORNING 90 tablet 5Active clopidogrel (Plavix) 75 mg tablet Indications: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 upper [place] heart with stable angina pectorisTAKE 1 TABLET BY MOUTH ONCE DAILY DIRECTED 90 tablet 5Active metoprolol tartrate (Lopressor) 25 mg tablet Indications: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 upper [place] heart with stable angina pectorisTAKE 1 TABLET BY MOUTH IN THE MORNING AND AT BEDTIME 180 tablet 5Active isosorbide mononitrate ER (Imdur) 120 mg 24 hr tablet Indications:Chest pain, unspecified typeTAKE 1 TABLET BY MOUTH IN THE MORNING (DO NOT CRUSH OR CHEW) 90 tablet 5Active dilTIAZem CD (Cardizem CD) 120 mg 24 hr capsule Indications:Essential hypertensionTAKE 1 CAPSULE BY MOUTH IN THE MORNING 90 capsule 5Active rosuvastatin (Crestor) 40 mg tablet Indications: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 upper [place] heart with stable angina pectorisTAKE 1 TABLET BY MOUTH AT BEDTIME 90 tablet 5Active aspirin 81 mg EC tablet Take 81 mg by mouth 1 (one) time.Active nitroglycerin (Nitrostat) 0.4 mg SL tablet Indications:Chest pain, unspecified type,Shortness of breathPlace 1 tablet (0.4 mg) under the tongue every 5 (five) minutes if needed for chest pain. May repeat dose every 5 minutes for up to 3 doses total. 25 tablet ctive dilTIAZem CD (Cardizem CD) 240 mg 24 hr capsule Indications:Chest pain, unspecified type,Shortness of breathTake 1 capsule (240 mg) by mouth once daily as directed. 90 capsule ctive Active Problems ProblemNoted DateDiagnosed DatePrimary /06/7105Bkgyiq97/06/2024Vertigo 02/28/2024bnormal MRI02/25/20247854Fdjsjigypx02/03/2024erebrovascular disease 02/25/2024Eye exam dhsmazgd27/03/2024Tension type omsigaqu79/03/2024hest pain 12/07/2022 Overview (12/07/2022): Added automatically from request for surgery [id number] Paroxysmal zmqahggcweg26/06/2020Prinzmetal phzkca0005/30/20201356Crook-Ucnxgbhqz-Yphap ktavhzy6205/30/20203584Wlivxm84/05/2014 Overview (09/25/2022): Last Assessment & Plan: She had pyuria on her screening dipstick. She was on Levaquin at the time. She is currently asymptomatic. Will repeat UA with culture for possible occult UTI. Bone marrow donor11/14/2013 Overview (09/25/2022): Last Assessment & Plan: Ms. Fox is now post-op day 7. She is [...] heavy lifting for the next 7 days. Encounters DateTypeDepartmentCare ViduZkboxgbkyuw35/13/2025Telephone [facility] [address] [place] [address] RebecaMaria Dolores oro MA 06/04/2025Orders Only [facility] [address] [place] [address] Provider, MD Renzo from Last 3 Months Family History Medical HistoryRelationNameCommentsHeart diseaseFatherSupraventricular tachycardiaMotherHeart diseasePaternal GrandfatherHeart diseasePaternal GrandmotherSupraventricular tachycardiaSisterRelationNameStatusCommentsFather MotherPaternal GrandfatherPaternal GrandmotherSister Social History Tobacco UseTypesPacks/DayYears UsedDateSmoking Tobacco: NeverSmokeless Tobacco: Never Tobacco Cessation:Counseling Given: No Alcohol UseStandard Drinks/WeekCommentsNot Currently0 (1 standard drink = 0.6 oz pure alcohol)[facility] Safety & EnvironmentAnswerDate RecordedFear of Current or Ex-PartnerNot on file12/16/2023Emotionally AbusedNot on file12/16/2023hysically AbusedNot on file12/16/2023Sexually AbusedNot on file12/16/2023hysically or Sexually AbusedNot on file12/16/2023CommentsNoSex and Gender Information ValueDate RecordedSex Assigned at BirthNot on fileLegal OdyRldpxw94/29/2022 10:21 PM EDTGender IdentityNot on fileSexual OrientationNot on file Last Filed Vital Signs Vital SignReadingTime TakenCommentsBlood Feonrjnh850/7207 9:25 AM EDT Oxsgg4358 9:25 AM EDTTemperature--Respiratory Hndp3920/04/2023 3:30 PM ESTOxygen Iszlamzoql14%05/03/2025 9:25 AM EDTInhaled Oxygen Concentration-- Vlmlra66.3 kg (208 lb)05/03/2025 9:25 AM QGPEwurbu261.6 cm (5' 6 )05/03/2025 9:25 AM EDTBody Mass Index33.57005/03/2025 9:25 AM EDT Plan of Treatment Health MaintenanceDue DateLast DoneCommentsCT Baytevnxtezr1977Colonoscopy 1977Colorectal Cancer Gkdeqyghs1977FIT-DNA1977FIT1977 FOBT1977 2150Gqlktcefhzoam1977Depression Glcvwirrh53/10/1989Hepatitis B Vaccines (1 of 3 - 19+ 3-dose series)1996Pneumococcal Vaccine: Pediatrics (0 to 5 Years) and At-Risk Patients (6 to 64 Years) (1 of 2 - PCV)1996Pap Smear1998Adult Qsavlkc4409/03/1999Cervical Cancer Tffzmkwjr52/10/2007 HPV/Fwtkwf5309/03/20076573Kcxmtlcod57/10/2017COVID-19 Vaccine ( season) , 11/21/2020, 10/23/2020Influenza Vaccine (#1)2025 08/16/2024, 08/16/2024, 08/19/2018Zoster Vaccines (1 of 2)2027HIB Vaccines Aged OutNo longer eligible based on patient's age to complete this topicHPV VaccinesAged OutNo longer eligible based on patient's age to complete this topic IPV VaccinesAged OutNo longer eligible based on patient's age to complete this topicMeningococcal B VaccineAged OutNo longer eligible based on patient's age to complete this topicMeningococcal VaccineAged OutNo longer eligible based on patient's age to complete this topicRotavirus VaccinesAged OutNo longer eligible based on patient's age to complete this topic Procedures Procedure NamePriorityDate/TimeAssociated DiagnosisCommentsTREADMILL STRESS MYOCARDIAL PERFUSION HFXALGBVbwtubn63/04/2025 9:09 AM EDTfrom Last 3 Months Results * Treadmill Stress Myocardial Perfusion Imaging (05/28/2025 9:09 AM EDT) Anatomical RegionLateralityModalityOther Narrative Authorizing ProviderResult TypeResult StatusHistorical Provider MDCV STRESS PROCEDURESFinal Result from Last 3 Months Insurance Care Teams Team MemberRelationshipSpecialtyStart DateEnd Date Pat Dominique MD [address] [facility] [address]A PCP - Welpapk60/2/22
--- OUTSIDE RECORDS SUMMARY | 2025-08-22 12:03 | XMS_ITS | CCD ---
Author Organization [facility] Care Team Providers Care Phlebotomy Lab Assistant Name Role Phone ALESSANDRO LIN Admitting Unavailable ALESSANDRO LIN Attending Unavailable PAT HUSTON Referring Unavailable ROBEL, PAT Primary Care Unavailable Pat Huston Unavailable ROBEL, DR PAT Kumari Admitting Unavailable HUSTON, DR PAT Kumari Attending Unavailable HUSTON, DR PAT Kumari Primary Care Unavailable BATESBURG, DR NILESH Foy Consulting Unavailable HUSTON, DR PAT Kumari Consulting Unavailable HUSTON, DR PAT Kumari Admitting Unavailable HUSTON, DR PAT Kumari Attending Unavailable HUSTNO, DR PAT Kumari Primary Care Unavailable HUSTON, [...] Unavailable MD Pat Huston Primary Care Provider [phone] MD Pat Huston Attending Provider Pat Huston Admitting Unavailable Pat Huston Primary Care Unavailable Pat Huston Attending Unavailable Kevon Samuel Admitting Unavailab Kevon Morejon Attending Unavailab Pat Mcgovern Primary Care Unavailable Pat Huston MD Primary Care Provider [phone] Jl Aguilar DO Unavailable HARLAN NIÑO Attending Unavailable HARLAN NIÑO Attending Unavailable Pat Huston MD Primary Care Provider [phone] Harlan Niño APRN Attending Provider VIDHI ANDERSON Attending Unavailable Allergies Allergy ClassificationReported Allergen(s)Allergy TypeDate of OnsetReaction(s) Facility (2 sources)Acetaminophen / oxyCODONEDrug Xeonxwd00-27-5991Vgw [facility] Repository (8 sources)levoFLOXacinDrug Fbsncnx79-37-8468pjghnSdiRiverside Methodist Hospital [facility] (2 sources)MeperidineDrug Yawnwdq41-02-1627Cig [facility] Repository (2 sources)Darvocet-N 100Drug allergy (disorder)23-86-4105Tmo [facility] Repository (6 sources)Acetaminophen / oxyCODONEDrug AllergyUnkvegas valley rehabilitation hospitalOdojosaint john's [facility] Other (6 sources)Acetaminophen / PropoxypheneDrug AllergyUnkHarry S. Truman [facility] Other (10 sources)Meperidine; Translations: [MEPERIDINE]Drug Pxeauss39-89-1365DilchyzHolzer Health System (8 sources)SimvastatinDrug Drdbzyo84-68-8846IuetpnbPremier Health [facility] Hospital [facility] (1 source)Tylenol-Codeine #3Drug allergy (disorder)[facility] Rep[facility] (5 sources)Allergies ReconciledPropensity to adverse reactionsNorthwest Medical Center [facility] Other (5 sources)patient allergy list reviewed by nurse or physiciaPropensity to adverse zhnrrhfco69-87-7084Gahenyw:DoneNocarondelet health [facility] Other (5 sources)Darvocet A500 *ANALGESICS - OPIOID*Propensity to adverse reactions 57-48-8760PjbtxxvFlzap [facility] Other (2 sources)Acetaminophen; Translations: [acetaminophen]Drug Ixhrfxe13-79-5569 [facility] (5 sources)levoFLOXacin; Translations: [levofloxacin]Drug Sumfjpd57-31-1498HutlySt. Mary'[facility] (4 sources)oxyCODONE; Translations: [oxycodone]Drug Bsatxnl84-94-1587NamndtuzParkview Health Bryan Hospital (4 sources)Propoxyphene; Translations: [propoxyphene]Drug Luyskgt37-00-7770 [facility] (1 source)MeperidineDrug Vkgcfsc94-20-2201TbaazrhzjC[facility] Rep[facility] (2 sources)Darvocet A500 *ANALGESICS - OPAllergy to vopqewlzb64-10-5262QmvfvSt. Mary'S Medical CenterComment on above:Free Text Allergy: Darvocet A500 *ANALGESICS - OPIOID*; Onset Date: 10/27/2016 (4 sources)Acetaminophen / oxyCODONE; Translations: [OXYCODONE-ACETAMINOPHEN] Drug Kvdieen23-94-0277RT intoleranceNOCenterpoint Medical Center (3 sources)MeperidineDrug Xobhjww33-33-9808XKDelaware Hospital for the Chronically Ill (1 source)PROPOXYPHENE N-ACETAMINOPHEN; Translations: [PROPOXYPHENE N-ACETAMINOPHEN]Propensity to adverse reactions to drug (disorder)12-15-2013 [facility] Repository Medications Current Medications MedicationDrug Class(es)DatesSig (Normalized)Sig (Original)aspirin 81 mg oral tablet (1 source)Platelet Aggregation Inhibitor, Nonsteroidal Anti-inflammatory Drug Start: 27-30-5880xbkj 1 tablet by mouth once dailyAspirin 81 mg tablet Active 81 MG PO Daily May 24, 2025 12:00am Complies with drug sahhmzk75 hr buPROPion hydrochloride 300 mg extended release oral tablet (20 sources)AminoketoneStart: 78-24-8503dkkg 1 tablet by mouth once daily in the morningBupropion Hcl (Wellbutrin Xl) 300 mg tablet extended release 24 hr Active 300 MG PO Every morning May 24, 2025 12:00am Complies with drug therapyStart: 08-23-2024 End: 91-82-8257mywo 1 tablet by mouth twice dailyBupropion Hcl 100 mg tablet Discontinued 100 MG PO Twice daily August 23, 2024 12:00am May 24, 2025 4:19pmStart: 30-86-2854llJTPQgxr HCl 100MG BuPROPion HCl( 100MG Oral 2 times daily ) Active -Hx Entry Oral 2 times daily for 0 *Pick strength-form from Phizzbo for eRX* Jun, Activetake 1 tablet by mouth once dailybuPROPion XL (Wellbutrin XL) 300 MG 24 hr tablet Take 1 tablet by mouth Daily Active clopidogrel 75 mg oral tablet (4 sources)P2Y12 Platelet InhibitorStart: 87-25-8491zoxu 1 tablet by mouth once dailyClopidogrel (Plavix) 75 mg tablet Active 75 MG PO Daily May 24, 2025 12:00am Complies with drug therapyStart: 12-01-2023 End: 05-53-3943gnoc 1 tablet by mouth once dailyclopidogrel (Plavix) 75 MG tablet Take 75 mg by mouth Daily 12/01/2023 11/30/2024 Byrwas48 hr dilTIAZem hydrochloride 240 mg extended release oral capsule (20 sources)Calcium Channel BlockerStart: 65-43-3262olps 1 mg by mouth every twenty-four hoursDiltiazem Hcl (Cartia Xt) 240 mg capsule,extended release 24hr Active MG PO May 24, 2025 12:00amComplies with drug therapyStart: 08-23-2024 End: 42-99-8677wvjp 1 capsule by mouth once daily, then take 1 capsule by mouth every twenty-four hoursDiltiazem Hcl (Cardizem Cd) 240 mg capsule,extended release 24hr Discontinued 240 MG PO Daily August 23, 2024 12:00am August 23, 2024 11:19amStart: 08-23-2024 End: 04-41-1446xmgt 2 tablets by mouth once dailyDiltiazem Hcl 120 mg tablet Discontinued 120 MG PO Daily August 23, 2024 11:19am May 2454:19pm FreeTextSi tablets Orally daily; Note: Source Status: Takingtotal of 240 mg; Provider: Robel Stewart ( )Start: 08-23-2024 End: 98-98-9563kwzb 2 tablets by mouth once dailyDiltiazem Hcl Discontinued 2 TAB PO Daily August 23, 2024 12:00am August 23, 2024 11:20am FreeTextSi tablets Orally daily; Note: Source Status: Takingtotal of 240 mg; Provider: Robel Stewart ( )Start: 12-01-2023 End: 13-84-8823uaoa 1 capsule by mouth in the morning, then take 1 capsule by mouth every twenty-four hoursdilTIAZem CD (Cardizem CD) 120 MG 24 hr capsule Take 120 mg by mouth in the morning. 12/01/2023 11/30/2024 ActiveStart: 25-22-4327ngrx 240 mg by mouth once dailyCardizem CD 240MG Cardizem CD( 240MG Oral daily ) Active -Hx Entry Oral daily for 0 *Pick strength-form from Phizzbo for eRX* Jun, Activetake 2 tablets by mouth every twenty-four hours Cardizem 120 MG 2 tablets Orally daily total of 240 mg ActiveDULoxetine 30 mg delayed release oral capsule (19 sources)Serotonin and Norepinephrine Reuptake InhibitorStart: 08-23-2024 End: 25-87-7506vtmp 1 capsule by mouth once dailyDuloxetine (Cymbalta) 30 mg capsule,delayed release(DR/EC) Active 30 MG PO Daily August 232:00am Complies with drug therapyhydroCHLOROthiazide 25 mg oral tablet (4 sources)Thiazide DiureticStart: 77-07-9794bksq 1 tablet by mouth once daily Hydrochlorothiazide 25 mg tablet Active 25 MG PO Daily May 24, 2025 12:00am Complies with drug therapyStart: 12-01-2023 End: 10-56-5905iyxv 1 tablet by mouth in the morninghydroCHLOROthiazide (HYDRODiuril) 25 MG tablet Take 25 mg by mouth in the morning. 12/01/20232024 Activemetoprolol tartrate 25 mg oral tablet (4 sources)beta-Adrenergic BlockerStart: 36-44-7821flzl 1 tablet by mouth once dailyMetoprolol Tartrate 25 mg tablet Active 25 MG PO Daily May 24, 2025 12:00am Complies with drug therapyStart: 12-01-2023 End: 11-19-2359crcu 1 tablet by mouth in the morningmetoprolol tartrate (Lopressor) 25 MG tablet Take 25 mg by mouth in the morning and 25 mg in the odalys carlos. 12/01/2023 11/30/2024 Activenitroglycerin 0.4 mg sublingual tablet (4 sources)Nitrate VasodilatorStart: 53-44-0175ylof 1 tablet under the tongue onceNitroglycerin 0.4 mg tablet, sublingual Active 0.4 MG SUBLINGUAL Once May 24, 2025 12:00am Complies with drug therapynitroglycerin (Nitrostat) 0.[address] 0.4 mg under the tongue every 5 (five) minutes if needed for chest pain Activerosuvastatin calcium 40 mg oral tablet (4 sources)HMG-CoA Reductase InhibitorStart: 47-95-0035lkmp 1 tablet by mouth once dailyRosuvastatin 40 mg tablet Active 40 MG PO Daily May 24, 2025 12:00am Complies with drug therapyStart: 12-01-2023 End: 72-18-6285mnqs 1 tablet by mouth at bedtimerosuvastatin (Crestor) 40 MG tablet Take 40 mg by mouth at bedtime 12/01/2023 11/30/2024 Active Completed/Discontinued Medications MedicationDrug Class(es)DatesSig (Normalized)Sig (Original)citalopram 20 mg oral tablet (7 sources)Serotonin Reuptake InhibitorStart: 08-23-2024 End: 64-82-6365Dqfitmkjkw 20 mg tablet Discontinued MG PO August 23, 2024 12:00am May 24, 2025 4:19pm FreeTextSig: Citalopram Hydrobromide( 20MG Oral 2 times daily ) Active -Hx Entry Oral 2 times daily; Note:Source Status: Taking*Pick strength-form from Phizzbo for eRX*; Provider: Rboel Stewart ( )Start: 24-14-0443Vylhsjhkda Hydrobromide 20MG Citalopram Hydrobromide( 20MG Oral 2 times daily ) Active -Hx Entry Oral 2 times daily for 0 *Pick strength-form from Phizzbo for eRX* Jun, Nwkomm94 hr isosorbide mononitrate 60 mg extended release oral tablet (18 sources)Nitrate VasodilatorStart: 08-23-2024 End: 63-11-3407wiav 1 tablet by mouth once daily in the morningIsosorbide Mononitrate 60 mg tablet extended release 24 hr Discontinued 1 TAB PO Daily August 23, 2024 12:00am August 23, 2024 11:20am FreeTextSi tablet in the morning Orally Once a day; Note: Source Status: Oqfgmd006 mg; Provider: Robel Stewart ( )Start: 12-01-2023 End: 28-86-0735pxwy 1 tablet by mouth once daily, then take 1 tablet by mouth every twenty-four hoursIsosorbide Mononitrate 120 mg tablet extended release 24 hr Active 120 MG PO Daily August 23, 2024 12:00am Complies with drug therapy Start: 27-67-5630Ayplc 120MG Imdur( 120MG Oral ) Active -Hx Entry Oral for 0 *Reorder from Phizzbo for eRx and Interaction Alerts* Jun, Activetake 1 tablet by mouth once daily in the morningImdur 60 MG 1 tablet in the morning Orally Once a day 120 mg Active Problems Active Problems Problem ClassificationProblemDateDocumented DateEpisodic/ChronicAnxiety disorders (6 sources)Generalized anxiety disorder; Translations: [Generalized anxiety disorder]ChronicConditions associated with dizziness or vertigo (5 sources)Vertigo; Translations: [Dizziness and giddiness]Onset: 02-28-2024 90-38-0774VlarcktgTgbafdmnqw disorders (5 sources)Pre-excitation syndrome; 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]Onset: 98-04-8525ZnlttwfUjzuezggc of lipid metabolism (9 sources)Hyperlipidemia, unspecified; Translations: [Hyperlipidemia]Onset: 97-92-3068BzcklvoOedaq of unknown origin (5 sources)Fever, unspecified; Translations: [Fever]EpisodicHeadache; including migraine (5 sources)Tension-type headache; Translations: [Tension-type headache, unspecified, not intractable]Onset: 394194-82-4112FiylfjrVhoyfoibd disorders (10 sources)Excessive and frequent menstruation with regular cycle; Translations: [Intermenstrual bleeding - irregular] Resolved: 51-62-5170HotgxviByqgdncrljkse mental health disorders (5 sources)Primary insomnia; Translations: [Primary insomnia]Onset: 02-28-2024 91-42-1857PmnulufFocl disorders (6 sources)Moderate recurrent major depression; Translations: [Major depressive disorder, recurrent, moderate]ChronicNonspecific chest pain (18 sources)Non-cardiac chest pain; Translations: [Other chest pain]Onset: 64-92-6495EnpbkmnjTlik wounds of head; neck; and trunk (5 sources)Laceration of genitalia; Translations: [Laceration without foreign body of vagina and vulva, initial encounter]EpisodicOther aftercare (1 source)Encounter for follow-up examination after completed treatment for conditions other than malignant neoplasm; Translations: [Encntr for f/u exam aft trtmt for cond oth than malig neoplm]EpisodicOther aftercare (4 sources)History and physical examination, follow-up; Translations: [Encounter for follow-up examination after completed treatment for conditions other than malignant neoplasm]EpisodicOther and ill-defined cerebrovascular disease (3 sources)Cerebrovascular disease; Translations: [Cerebrovascular disease, unspecified]Onset: 830247-70-3516BjnvnlfEqrja connective tissue disease (1 source)Pain in right hand; Translations: [Pain in right hand]EpisodicOther connective tissue disease (4 sources)Pain in right hand; Translations: [Pain in right hand]EpisodicOther eye disorders (5 sources)Dilated pupil; 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]ChronicOther eye disorders (5 sources)Anisocoria; 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]Onset: ChronicOther lower respiratory disease (2 sources)Shortness of breath; Translations: [Shortness of breath]Onset: 27-25-3312QdddvbprMquga nervous system disorders (5 sources)Tremor; Translations: [Tremor, unspecified]Onset: 02-28-2024 84-48-7007EptbeokrTggia non-traumatic joint disorders (1 source)Pain in left hip; Translations: [Pain in left hip]EpisodicOther non- traumatic joint disorders (4 sources)Arthralgia of the pelvic region and thigh; Translations: [Pain in left hip]EpisodicOther non-traumatic joint disorders (2 sources)Hip pain; Translations: [Pain in right hip]64-75-5644KpxyynlkBgdcl non-traumatic joint disorders (1 source)Pain in right hip; Translations: [Pain in joint, pelvic region and thigh]91-17-5134DqsipdxeFkbwm nutritional; endocrine; and metabolic disorders (1 source)Body mass index (BMI) 36.0-36.9, adult; Translations: [Body mass index (BMI) 36.0-36.9, adult]ChronicOther nutritional; endocrine; and metabolic disorders (5 sources)Obese class I; Translations: [Body mass index 32.0-32.9, adult]Onset: 65-58-2285DisrfnjFhzdg nutritional; endocrine; and metabolic disorders (4 sources)Obese class II; Translations: [Body mass index (BMI) 36.0-36.9, adult]ChronicOther screening for suspected conditions (not mental disorders or infectious disease) (9 sources)Abnormal findings on diagnostic imaging of other specified body structures; Translations: [MRI scanabnormal]Onset: 87-32-6265OsocvfyUuuev screening for suspected conditions (not mental disorders or infectious disease) (20 sources)Encounter for screening mammogram for malignant neoplasm of breast; Translations: [Urine test negative]Onset: 47-87-0877LotpvqztMmago skin disorders (5 sources)Acne vulgaris; Translations: [Acne vulgaris]EpisodicResidual codes; unclassified (1 source)Other specified postprocedural states; Translations: [Other specified postprocedural states]EpisodicResidual codes; unclassified (4 sources)Postprocedural state finding; Translations: [Other specified postprocedural states]EpisodicUnclassified (1 source)Nonspecific elevation of levels of transaminase or lactic acid dehydrogenase (LDH); Translations: [Nonspecific elevation of levels of transaminase or lactic acid dehydrogenase (LDH)]Onset: 06-21-2019 Past or Other Problems Problem ClassificationProblemDateDocumented DateEpisodic/ChronicAbdominal pain (5 sources)Pelvic and perineal pain; Translations: [Pelvic and perineal pain] Resolved: 07-07-7400QfjnnvzpBfpynwth reactions (5 sources)Unspecified contact dermatitis due to other agents; Translations: [Contact dermatitis]Onset: 42-55-6552DommvfvzYgrkukzs; including migraine (3 sources)Tension-type headache; Translations: [Tension-type headache, unspecified, intractable]Onset: 680291-73-1930IzktgutzRrdqyax and fatigue (1 source)Other fatigue; Translations: [OTHER FATIGUE]Onset: 72-11-2061Etiflbhr Mycoses (5 sources)Candidiasis, unspecified; Translations: [Candidiasis]Onset: 63-09-9221CkiuwmdfAfseb circulatory disease (4 sources)Other specified symptoms and signs involving the circulatory and respiratory systems; Translations:[OTH SPEC SX SIGNS INVLV CIRC RS]Onset: 62-21-5541NoykmqebVqais complications of (1 source)Supervision of high risk , unspecified, unspecified trimester; Translations: [Supervision of high risk , unspecified, unspecified trimester]Onset: 10-36-8195TrfehniaCxorp complications of (4 sources)High risk ; Translations: [Supervision of high risk , unspecified, unspecified trimester]Onset: 29-15-8074AwxezanfByfhm eye disorders (3 sources)Fundoscopy abnormal; Translations: [Unspecified disorder of eye and adnexa]Onset: 420439-51-4147QwezztbuTsxcy liver diseases (4 sources)Elevated levels of transaminase & lactic acid dehydrogenase; Translations: [Nonspecific elevation of levels of transaminase or lactic acid dehydrogenase (LDH)]Onset: 86-65-3205VspfgfwgDzvfg non-traumatic joint disorders (5 sources)Shoulder joint pain; Translations: [Pain in right shoulder]Onset: 07-00-5322VfgtnjmlKsjxu and delivery including normal (1 source)Encounter for routine follow-up; Translations: [Encounter for routine follow-up]Onset: 37-41-7681ExkonfxkPjetayyqf; thrombophlebitis and thromboembolism (5 sources)Embolism from thrombosis of vein of distal lower extremity; Translations: [Acute venous embolism and thrombosis of unspecified deep vessels of lower extremity]Onset: 00-27-5250BmgtkzcdOhvubodcmlk; intervertebral disc disorders; other back problems (5 sources)Cervical disc disorder with radiculopathy; Translations: [Cervical disc disorder with radiculopathy, cervicothoracic region]Onset: 06-20-2018 EpisodicThyroid disorders (5 sources)Disorder of thyroid, unspecified; Translations: [Disorder of thyroid gland]Onset: 88-53-9094LowuqeeyUukpggkrtgoh (5 sources)Surveillance of intrauterine device contraception done; Translations: [Surveillance of previously prescribed intrauterine contraceptive device]Onset: 21-16-9105Mnmdzfjaxnxe (5 sources)Encounter for insertion or removal of intrauterine contraceptive device; Translations: [Encounter for insertion or removal of intrauterine contraceptive device]Onset: 09-05-2009 Results Test NameValueInterpretationReference ZyporFmtxhymm32ht 41-95-656796Cftsrrbff stress test result from 05/28/2025: Vidhi Anderson MD to Me (Selected Message) 06/05/25 7:55 AM Please reassure her stress test is normal Thanks Patient made aware.[facility] HealthOrders Onlyon 61-36-2265Dzkrhn [id number] Elvia Fox 1975 F Date Provider Department Center 06/04/2025 [id number], HISTORICAL BEATA Desai Hos Family History Problem Relation Age of Onset Supraventricular tachycardia Mother Heart disease Father Supraventricular tachycardia Sister Heart disease Paternal Grandmother Heart disease Paternal Grandfather Family Status - Relation Status Age at Mother Father Sister Paternal Grandmother Paternal GrandfatherNormalMansfield HospitalOffice Visiton 21-66-1788Chhxsn-up [id number] Eliva Fox 1975 F Date Provider Department Center 05/03/2025 VIDHI ECHEVARRIA Family History Problem Relation Age of Onset Supraventricular tachycardia Mother Heart disease Father Supraventricular tachycardia Sister Heart disease Paternal Grandmother Heart disease Paternal Grandfather Family Status - Relation Status Age at Mother Father Sister Paternal Grandmother Paternal Grandfather Level of Service:08667 HI OFFICE/OUTPATIENT ESTABLISHED MOD MDM 30 MINNormal [facility]36on 56-18-300911Qujeowp made aware.Normal [facility]36on 66-65-936161Xnqplym stopped by the office today. Says she was out of hydrochlorothiazide for 2 days and gained 8#. She did lose those 8# once she restarted it. She wants to know if this is normal and she wonders how much water weight is really on her. Any advice? Thanks.[facility] HealthMR breast BI wo/w con CADon 41-08-2268MV breast BI wo/w con [facility] [place] [address] [place] [address] MRI Report Signed Patient: Elvia Fox MR#: [id number] 1229 : 1975 Acct:[id number] Age/Sex: 48 / F ADM Date: 09/07/23 Loc: Room: Type: [facility] Attending Dr: Pat Huston MD [...] All imaged data was reviewed using the Pushkart system. The postcontrast images were subtracted and [...] Waite Jr., D.O.09/07/2023 11:47 AM Dictation Location: [place] [address] Transcribed By: TROY 09/07/23 1147 Dictated By: Bunny Waite Jr, DO 09/07/23 1138 Signed By: 09/07/23 1147[facility] HospitalMRI BRAIN WO W CONon 23-60-4594DAQ BRAIN WO W CONEXAMINATION: MRI BRAIN WO W CON, MRA HEAD [...] of the brain. Electronically authenticated by: EDILSON JOHN Date: 2023-02-16 10:16[facility] HospitalLIPID PROFILEon 59-23-5995BSDK-HDL RATIO NORMSEE BELOWPremier Health Miami Valley HospitalComment on above:Result Comment: 3.3 - 4.4 LOW RISK 4.4 - 7.1 AVERAGE RISK 7.1 - 11.0 MODERATE RISK >11.0 HIGH RISKPerformed By: #### CMP, TSH, LIPID #### [facility] [address] [place] [address] Dr. Yilan ChangCholesterol [Mass/Vol]120 mg/dLNormal<=200The [facility] Comment on above:Performed By: #### CMP, TSH, LIPID #### [facility] [address] [address] [address] David Suarezesterol in HDL [Mass/Vol]54 mg/sPEkxnme09-86Pfn [facility] HospitalComment on above:Performed By: #### CMP, TSH, LIPID #### [facility] [address] [address] [address] David Suarezesterol in LDL [Mass/Vol]45.6 mg/dLPremier Health Miami Valley HospitalComment on above:Performed By: #### CMP, TSH, LIPID #### [facility] [address] [place] [address] Dr. David Mayers.total/Cholesterol in HDL [Mass ratio]2.2 {ratio} NormalThe [facility]-Hyde Memorial HospitalComment on above:Performed By: #### CMP, TSH, LIPID #### [facility] [address] [place] [address] Dr. David Garcia NORMAL> or = 60 mg/dl - LOW CARDIOVASCULAR RISK <40 mg/dl - HIGH CARDIOVASCULAR RISKPremier Health Miami Valley HospitalComment on above:Performed By: #### CMP, TSH, LIPID #### [facility] [address] [place] [address] Dr. David Bardales CALC NORMALSEE BELOWPremier Health Miami Valley HospitalComment on above:Result Comment: <100 mg/dl OPTIMAL 100 - 129 mg/dl NEAR OR ABOVE OPTIMAL 130 - 159 mg/dl BORDERLINE HIGH 160 - 189 mg/dl HIGH >190 mg/dl VERY HIGH Performed By: #### CMP, TSH, LIPID #### [facility] [address] [place] [address] Dr. David ZapataTriglyceride [Mass/Vol]102 mg/dLNormal<=150The [facility] Comment on above:Performed By: #### CMP, TSH, LIPID #### [facility] [address] [place] [address] Dr. David PantojaLDL CALC20.4 mg/dLNormalThe [facility] HospitalComment on above: Performed By: #### CMP, TSH, LIPID #### [facility] [address] [place] [address] Dr. David Cheatham PROFILEon 88-13-4850Rzgamoj [Mass/Vol]3.4 g/dLNormal3.4-5.0 The [facility] HospitalComment on above:Performed By: #### CMP, TSH, LIPID #### [facility] [address] [place] [address] Dr. David ZapataAlbumin/Globulin [Mass ratio]1.0 {ratio}NormalThe [facility] Memorial HospitalComuniversity of mich[facility] health on above:Performed By: #### CMP, TSH, LIPID #### [facility] [address] [place] [address] Dr. David Crockett [Catalytic activity/Vol]51 U/VQqkyis91-156Vxg [facility] HospitalComment on above:Performed By: #### CMP, TSH, LIPID #### [facility] [address] [place] [address] Dr. David Szymanski [Catalytic activity/Vol]32 U/RWrwnmm06-83Iod [facility] HospitalComment on above:Performed By: #### CMP, TSH, LIPID #### [facility] [address] [place] [address] Dr. David Gamino [Catalytic activity/Vol]18 U/MQusvqm64-26Alf [facility] HospitalComment on above:Performed By: #### CMP, TSH, LIPID #### [facility] [address] [place] [address] Dr. David Xie, CONJUGATED0.1 mg/dLNormal0.0-0.2The [facility] [facility] Comment on above:Performed By: #### CMP, TSH, LIPID #### [facility] [address] [place] [address] Dr. David Connelly [Mass/Vol]0.4 mg/dLNormal0.2-1.0[facility] Comment on above:Performed By: #### CMP, TSH, LIPID #### [facility] [address] [address] [address] David ZapataGlobulin (S) [Mass/Vol]3.5 g/dLNormalThe [facility] HospitalComment on above:Performed By: #### CMP, TSH, LIPID #### [facility] [address] [address] [address] David ZapataProtein [Mass/Vol]6.9 g/dLNormal6.4-8.2The [facility] Comment on above:Performed By: #### CMP, TSH, LIPID #### [facility] [address] [place] [address] Dr. David NicholsonC AUTO DIFFon [id number] #0.0 103/ulNormal0.0-0.1[facility] HospitalComment on above:Performed By: #### CBC #### [facility] [address] [place] [address] Dr. David ZapataBasophils/100 WBC (Bld)0.4 %Normal0.2-2.0[facility] Comment on above:Performed By: #### CBC #### [facility] [address] [address] [address] David Henry #0.3 103/ulNormal0.0-0.7The [facility] HospitalComment on above: Performed By: #### CBC #### [facility] [address] [address] [address] David Chavisosinophils/100 WBC (Bld)3.4 %Normal0.9-7.0[facility] Comment on above:Performed By: #### CBC #### [facility] [address] [place] [address] Dr. David Chavisrythrocyte distribution width (RBC) [Ratio]12.0 %Vlyqdq90.0-15.0 [facility] HospitalComment on above:Performed By: #### CBC #### [facility] [address] [place] [address] Dr. David ZapataHematocrit (Bld) [Volume fraction]44.2 %Xsoxlq57.0-48.0The [facility] HospitalComment on above:Performed By: #### CBC #### [facility] [address] [place] [address] Dr. David ZapataHemoglobin (Bld) [Mass/Vol]14.0 g/xDRlvcqr66.0-16.0The [facility] HospitalComment on above:Performed By: #### CBC #### [facility] [address] [place] [address] Dr. David Rubio #0.04 10e3/ulCritically high0.00-0.03The [facility] Comment on above:Performed By: #### CBC #### [facility] [address] [place] [address] Dr. David Rubio %0.5 %Normal0.0-0.5The [facility] HospitalComment on above: Performed By: #### CBC #### [facility] [address] [place] [address] Dr. David Barnhart #2.3 103/ulNormal1.2-3.8The [facility] HospitalComment on above:Performed By: #### CBC #### [facility] [address] [place] [address] Dr. David Guevarahocytes/100 WBC (Bld)28.7 %Grrdfd57.5-60.0The [facility] HospitalComment on above:Performed By: #### CBC #### [facility] [address] [place] [address] Dr. David HanksTRIHEALTH DIFF REQNONormalThe [facility] HospitalComment on above: Performed By: #### CBC #### [facility] [address] [place] [address] Dr. David Gross (RBC) [Entitic mass]29.2 pxQnprwr56.7-34.0The [facility] HospitalComment on above:Performed By: #### CBC #### [facility] [address] [place] [address] Dr. David León (RBC) [Mass/Vol]31.7 g/lRVlnezw33.9-35.2The [facility] HospitalComment on above:Performed By: #### CBC #### [facility] [address] [place] [address] Dr. David Sellers (RBC) [Entitic vol]92.1 rPPblsyh58.0-99.0The [facility] HospitalComment on above:Performed By: #### CBC #### [facility] [address] [place] [address] Dr. David Arellano #0.6 103/ulNormal0.3-0.8The [facility] HospitalComment on above:Performed By: #### CBC #### [facility] [address] [place] [address] Dr. David Sureshocytes/100 WBC (Bld)7.3 %Normal1.7-12.0The [facility] Comment on above:Performed By: #### CBC #### [facility] [address] [place] [address] Dr. David Noble #4.8 103/ulNormal1.4-6.5The [facility] HospitalComment on above:Performed By: #### CBC #### [facility] [address] [place] [address] Dr. David Arredondoutrophils/100 WBC (Bld)59.7 %Ghjlff43.0-75.0The [facility] HospitalComment on above:Performed By: #### CBC #### [facility] [address] [place] [address] Dr. David Nina mean volume (Bld) [Entitic vol]9.4 fLCritically low 9.5-13.5The [facility] HospitalComment on above:Performed By: #### CBC #### [facility] [address] [place] [address] Dr. David ArayaT308 103/xmZrxgln929-302Zjm [facility] HospitalComment on above: Performed By: #### CBC #### [facility] [address] [place] [address] Dr. David MoreauC4.80 106/ulNormal4.20-5.40[facility] on above:Performed By: #### CBC #### [facility] [address] [place] [address] Dr. David ZapataWBC8.0 103/ulNormal4.0-11.0[facility] on above: Performed By: #### CBC #### [facility] [address] [place] [address] Dr. David ArroyoID PROFILEon [id number]-HDL RATIO NORMSEE [facility] on above:Result Comment: 3.3 - 4.4 LOW RISK 4.4 - 7.1 AVERAGE RISK 7.1 - 11.0 MODERATE RISK >11.0 HIGH RISKPerformed By: #### CMP, TSH, LIPID #### [facility] [address] [place] [address] Dr. David Suarezesterol [Mass/Vol]203 mg/dLCritically high<=200[facility] on above:Performed By: #### CMP, TSH, LIPID #### [facility] [address] [place] [address] Dr. David Suarezesterol in HDL [Mass/Vol]57 mg/oZSqptld71-93Gtw [facility] on above:Performed By: #### CMP, TSH, LIPID #### [facility] [address] [place] [address] Dr. David Suarezesterol in LDL [Mass/Vol]120.4 mg/dLPremier Health Atrium Medical Center on above:Performed By: #### CMP, TSH, LIPID #### [facility] [address] [place] [address] Dr. David Mayers.total/Cholesterol in HDL [Mass ratio]3.6 {ratio} NormalThe [facility] on above:Performed By: #### CMP, TSH, LIPID #### [facility] [address] [place] [address] Dr. David Garcia NORMAL> or = 60 mg/dl - LOW CARDIOVASCULAR RISK <40 mg/dl - HIGH CARDIOVASCULAR RISKPremier Health Miami Valley HospitalComment on above:Performed By: #### CMP, TSH, LIPID #### [facility] [address] [address] [address] David Bardales CALC NORMALSEE BELOWPremier Health Miami Valley HospitalComment on above:Result Comment: <100 mg/dl OPTIMAL 100 - 129 mg/dl NEAR OR ABOVE OPTIMAL 130 - 159 mg/dl BORDERLINE HIGH 160 - 189 mg/dl HIGH >190 mg/dl VERY HIGH Performed By: #### CMP, TSH, LIPID #### [facility] [address] [place] [address] Dr. David ZapataTriglyceride [Mass/Vol]128 mg/dLNormal<=150The [facility] Comment on above:Performed By: #### CMP, TSH, LIPID #### [facility] [address] [place] [address] Dr. David PantojaLDL CALC25.6 mg/dLNoSheltering Arms HospitalComment on above: Performed By: #### CMP, TSH, LIPID #### [facility] [address] [place] [address] Dr. David Blankenship 14(COMP METB)on 35-91-9544Kkcutdd [Mass/Vol]3.5 g/dLNormal 3.4-5.0The [facility] HospitalComment on above:Performed By: #### CMP, TSH, LIPID #### [facility] [address] [place] [address] Dr. David ZapataAlbumin/Globulin [Mass ratio]1.0 {ratio}NormalThe [facility] HospitalComment on above:Performed By: #### CMP, TSH, LIPID #### [facility] [address] [place] [address] Dr. David Crockett [Catalytic activity/Vol]68 U/SUufuow89-014Vxr [facility] HospitalComment on above:Performed By: #### CMP, TSH, LIPID #### [facility] [address] [place] [address] Dr. David Szymanski [Catalytic activity/Vol]28 U/MLukosd82-92Zmx [facility] HospitalComment on above:Performed By: #### CMP, TSH, LIPID #### [facility] [address] [place] [address] Dr. David Tapiaon gap [Moles/Vol]11.3 mmol/LNormalWvumed[facility] Comment on above:Performed By: #### CMP, TSH, LIPID #### [facility] [address] [place] [address] Dr. David ZapataAST [Catalytic activity/Vol]18 U/LAknhbj59-93Uzb [facility] HospitalComment on above:Performed By: #### CMP, TSH, LIPID #### [facility] [address] [place] [address] Dr. David ZapataBilirubin [Mass/Vol]0.4 mg/dLNormal0.2-1.0[facility] Comment on above:Performed By: #### CMP, TSH, LIPID #### [facility] [address] [place] [address] Dr. David ZapataCalcium [Mass/Vol]8.8 mg/dLNormal8.5-10.1[facility] Comment on above:Performed By: #### CMP, TSH, LIPID #### [facility] [address] [place] [address] Dr. David ZapataChloride [Moles/Vol]103 mmol/POavjop62-973QhpWvumedicine [facility] Community Hospital Comment on above:Performed By: #### CMP, TSH, LIPID #### [facility] [address] [place] [address] Dr. David ZapataCO2 [Moles/Vol]28.4 mmol/RKebbcw63.0-32.0[facility] Comment on above:Performed By: #### CMP, TSH, LIPID #### [facility] [address] [place] [address] Dr. David ZapataCreatinine [Mass/Vol]0.96 mg/dLNormal0.55-1.02The [facility] HospitalComment on above:Performed By: #### CMP, TSH, LIPID #### [facility] [address] [address] [address] David ChavisGFR-AF DJIBOUTIAN>60Normal>=60The [facility] HospitalComment on above:Performed By: #### CMP, TSH, LIPID #### [facility] [address] [address] [address] David ChavisGFR-NON AF DJIBOUTIAN>60Normal>=60The [facility] HospitalComment on above:Performed By: #### CMP, TSH, LIPID #### [facility] [address] [place] [address] Dr. David ZapataGlobulin (S) [Mass/Vol]3.5 g/dLNormalThe [facility] HospitalComment on above:Performed By: #### CMP, TSH, LIPID #### [facility] [address] [place] [address] Dr. David ZapataGlucose [Mass/Vol]94 mg/qQZyvjxi62-819IcgWvumedicine [facility] Hospital Comment on above:Performed By: #### CMP, TSH, LIPID #### [facility] [address] [place] [address] Dr. David ZapataPotassium [Moles/Vol]3.7 mmol/LNormal3.5-5.1The [facility] Comment on above:Performed By: #### CMP, TSH, LIPID #### [facility] [address] [place] [address] Dr. David ZapataProtein [Mass/Vol]7.0 g/dLNormal6.4-8.2[facility] Comment on above:Performed By: #### CMP, TSH, LIPID #### [facility] [address] [place] [address] Dr. David ZapataSodium [Moles/Vol]139 mmol/NLawqgz091-038IvoWvumedicine Harrison Community Hospital Comment on above:Performed By: #### CMP, TSH, LIPID #### [facility] [address] [place] [address] Dr. David ZapataUrea nitrogen [Mass/Vol]8.0 mg/dLNormal7.0-18.0The [facility] HospitalComment on above:Performed By: #### CMP, TSH, LIPID #### [facility] [address] [place] [address] Dr. David ZapataUrea nitrogen/Creatinine [Mass ratio]8.3 mg/mgNormalThe [facility] HospitalComment on above:Performed By: #### CMP, TSH, LIPID #### [facility] [address] [place] [address] Dr. David ZapataTSHon 38-57-7607RXP7.557 uIU/mLNormal0.358-3.740The [facility] HospitalComment on above:Performed By: #### CMP, TSH, LIPID #### [facility] [address] [place] [address] Dr. David ZapataVITAMIN B12on 09-32-6900Lcznfdxzg (Vitamin B12) [Mass/Vol]247.0 pg/iZUmxvvb335.0-986.0The [facility] HospitalComment on above:Performed By: #### VITB12 #### [facility] [address] [place] [address] Dr. David ZapataNM STRESS/REST MULTIon [id number] STRESS/REST MULTIPatient: ELVIA FOX Exam Date: 11/04/2022 : 1975 Gender:F Ordering : DR VIDHI ANDERSON M.D. Admission #: [id number] Family : Order #: [id number] CLICK HERE TO VIEW EXAM RADIOLOGY REPORT [...] due to EKG changes. Dictated by: Edilson John M.D. on 11/05/2022 at 10:59 Approved by: Edilson John M.D. on 11/05/2022 at 11:01[facility] MAMM SCREEN 3D AMANUEL CADon [id number] MAMM SCREEN 3D AMANUEL CADPatient: ELVIA FOX Exam Date: 07/10/2022 : 1975 Gender:F Ordering : DR PAT HUSTON M.D. Admission #: [id number] Family : Order #: [id number] CLICK HERE TO VIEW EXAM RADIOLOGY REPORT [...] Treatments None Family Cancers None LOCATION: [facility] BREAST COMPOSITION: Heterogeneously dense,which may obscure [...] by: Nilesh Deutsch MD on 07/10/2022 at 08:04[facility] AUTO DIFFon [id number] #0.0 103/ulNormal0.0-0.1The [facility] HospitalComment on above:Performed By: #### CBC #### [facility] [address] [place] [address] Dr. David ZapataBasophils/100 WBC (Bld)0.5 %Normal0.2-2.0The [facility] Comment on above:Performed By: #### CBC #### [facility] [address] [place] [address] Dr. David Henry #0.3 103/ulNormal0.0-0.7The [facility] HospitalComment on above: Performed By: #### CBC #### [facility] [address] [place] [address] Dr. David Chavisosinophils/100 WBC (Bld)3.4 %Normal0.9-7.0[facility] Comment on above:Performed By: #### CBC #### [facility] [address] [place] [address] Dr. David Chavisrythrocyte distribution width (RBC) [Ratio]12.1 %Rbogxc82.0-15.0 The [facility] HospitalComment on above:Performed By: #### CBC #### [facility] [address] [place] [address] Dr. David ZapataHematocrit (Bld) [Volume fraction]40.6 %Frnlhn08.0-48.0The [facility] HospitalComment on above:Performed By: #### CBC #### [facility] [address] [place] [address] Dr. David ZapataHemoglobin (Bld) [Mass/Vol]13.5 g/eMFggqnh66.0-16.0The [facility] HospitalComment on above:Performed By: #### CBC #### [facility] [address] [place] [address] Dr. David Rubio #0.03 10e3/ulNormal0.00-0.03The [facility] HospitalComment on above:Performed By: #### CBC #### [facility] [address] [place] [address] Dr. David Rubio %0.4 %Normal0.0-0.5[facility] on above: Performed By: #### CBC #### [facility] [address] [place] [address] Dr. David Barnhart #2.1 103/ulNormal1.2-3.8The [facility] HospitalComuniversity of [facility] on above:Performed By: #### CBC #### [facility] [address] [place] [address] Dr. David Guevarahocytes/100 WBC (Bld)28.6 %Zhwbqu37.5-60.0[facility] on above:Performed By: #### CBC #### [facility] [address] [place] [address] Dr. David HanksUAL DIFF REQNONormalThe [facility] HospitalComment on above: Performed By: #### CBC #### [facility] [address] [place] [address] Dr. David León (RBC) [Entitic mass]29.2 kkOhqjgy00.7-34.0[facility] on above:Performed By: #### CBC #### [facility] [address] [place] [address] Dr. David León (RBC) [Mass/Vol]33.3 g/eVAhipyq84.9-35.2[facility] on above:Performed By: #### CBC #### [facility] [address] [place] [address] Dr. David León (RBC) [Entitic vol]87.9 oHYbsckg51.0-99.0[facility] on above:Performed By: #### CBC #### [facility] [address] [place] [address] Dr. David Arellano #0.6 103/ulNormal0.3-0.8[facility] on above:Performed By: #### CBC #### [facility] [address] [address] [address] David Sureshocytes/100 WBC (Bld)7.9 %Normal1.7-12.0The [facility] Comment on above:Performed By: #### CBC #### [facility] [address] [place] [address] Dr. David ArredondoUT #4.3 103/ulNormal1.4-6.5The [facility] HospitalComment on above:Performed By: #### CBC #### [facility] [address] [place] [address] Dr. David Arredondoutrophils/100 WBC (Bld)59.2 %Ipdmzu60.0-75.0The [facility] HospitalComment on above:Performed By: #### CBC #### [facility] [address] [place] [address] Dr. David ZapataPlatelet mean volume (Bld) [Entitic vol]9.2 fLCritically low 9.5-13.5The [facility] HospitalComment on above:Performed By: #### CBC #### [facility] [address] [place] [address] Dr. David ZapataPLT280 103/fbJeegqt806-619Xgj [facility] HospitalComment on above: Performed By: #### CBC #### [facility] [address] [place] [address] Dr. David ZapataRBC4.62 106/ulNormal4.20-5.40The [facility] HospitalComment on above:Performed By: #### CBC #### [facility] [address] [place] [address] Dr. David ZapataWBC7.3 103/ulNormal4.0-11.0The [facility] HospitalComment on above: Performed By: #### CBC #### [facility] [address] [place] [address] Dr. David ZapataGLYCOHEMOGLOBIN A1Con [id number] RECOMMENDATIONSEE BELOWNormal The [facility] HospitalComment on above:Result Comment: ADA RECOMMENDED LIMIT 4.0 - 6.0 ADA THERAPEUTIC TARGET < 7.0 ACTION SUGGESTED > 7.0Performed By: #### CMP, TSH, LIPID #### [facility] [address] [place] [address] Dr. David ZapataGlucose [Mass/Vol]103 mg/dLPremier Health Atrium Medical Center on above:Performed By: #### CMP, TSH, LIPID #### [facility] [address] [place] [address] Dr. David ZapataHbA1c (Bld) [Mass fraction]5.2 %Normal4.5-6.2The [facility] on above:Performed By: #### CMP, TSH, LIPID #### [facility] [address] [place] [address] Dr. David ArroyoID PROFILEon 51-91-4810DGGY-HDL RATIO [place] HealthcareCom[facility] on above:Result Comment: 3.3 - 4.4 LOW RISK 4.4 - 7.1 AVERAGE RISK 7.1 - 11.0 MODERATE RISK >11.0 HIGH RISKPerformed By: #### CMP, TSH, LIPID #### [facility] [address] [place] [address] Dr. David Suarezesterol [Mass/Vol]217 mg/dLCritically high<=200[facility] on above:Performed By: #### CMP, TSH, LIPID #### [facility] [address] [place] [address] Dr. David ZapataCholesterol in HDL [Mass/Vol]50 mg/zFGhfwwq31-06Obi [facility] on above:Performed By: #### CMP, TSH, LIPID #### [facility] [address] [place] [address] Dr. David ZapataCholesterol in LDL [Mass/Vol]137.6 mg/dLPremier Health Atrium Medical Center on above:Performed By: #### CMP, TSH, LIPID #### [facility] [address] [place] [address] Dr. David Suarezesterol.total/Cholesterol in HDL [Mass ratio]4.3 {ratio} NormalThe [facility] HospitalComment on above:Performed By: #### CMP, TSH, LIPID #### [facility] [address] [place] [address] Dr. David Garcia NORMAL> or = 60 mg/dl - LOW CARDIOVASCULAR RISK <40 mg/dl - HIGH CARDIOVASCULAR RISKPremier Health Miami Valley HospitalComment on above:Performed By: #### CMP, TSH, LIPID #### [facility] [address] [place] [address] Dr. David ZapataLDL CALC NORMALSEE BELOWPremier Health Miami Valley HospitalComment on above:Result Comment: <100 mg/dl OPTIMAL 100 - 129 mg/dl NEAR OR ABOVE OPTIMAL 130 - 159 mg/dl BORDERLINE HIGH 160 - 189 mg/dl HIGH >190 mg/dl VERY HIGH Performed By: #### CMP, TSH, LIPID #### [facility] [address] [place] [address] Dr. David ZapataTriglyceride [Mass/Vol]147 mg/dLNormal<=150The [facility] Comment on above:Performed By: #### CMP, TSH, LIPID #### [facility] [address] [place] [address] Dr. David PantojaLDL CALC29.4 mg/dLNoSheltering Arms HospitalComment on above: Performed By: #### CMP, TSH, LIPID #### [facility] [address] [place] [address] Dr. David ZapataPROF 14(COMP METB)on 20-65-9070Cheibqs [Mass/Vol]3.6 g/dLNormal 3.4-5.0The [facility] HospitalComment on above:Performed By: #### CMP, TSH, LIPID #### [facility] [address] [place] [address] Dr. David ZapataAlbumin/Globulin [Mass ratio]1.1 {ratio}NormalThe [facility] HospitalComment on above:Performed By: #### CMP, TSH, LIPID #### [facility] [address] [place] [address] Dr. Yilan ChangALP [Catalytic activity/Vol]62 U/IPhqwtx62-686Olc [facility] HospitalComment on above:Performed By: #### CMP, TSH, LIPID #### [facility] [address] [place] [address] Dr. David GarciaT [Catalytic activity/Vol]21 U/MNidjqt78-66Snz [facility] HospitalComment on above:Performed By: #### CMP, TSH, LIPID #### [facility] [address] [place] [address] Dr. David Nguyen gap [Moles/Vol]12.6 mmol/LNormalWvumedicine [facility] Comment on above:Performed By: #### CMP, TSH, LIPID #### [facility] [address] [place] [address] Dr. David ZapataAST [Catalytic activity/Vol]14 U/LCritically uxr92-85Uth [facility] HospitalComment on above:Performed By: #### CMP, TSH, LIPID #### [facility] [address] [place] [address] Dr. David ZapataBilirubin [Mass/Vol]0.6 mg/dLNormal0.2-1.0[facility] Comment on above:Performed By: #### CMP, TSH, LIPID #### [facility] [address] [place] [address] Dr. David ZapataCalcium [Mass/Vol]8.5 mg/dLNormal8.5-10.1[facility] Comment on above:Performed By: #### CMP, TSH, LIPID #### [facility] [address] [place] [address] Dr. David ZapataChloride [Moles/Vol]103 mmol/XLxcmmo11-900Qwi [facility] Comment on above:Performed By: #### CMP, TSH, LIPID #### [facility] [address] [place] [address] Dr. David ZapataCO2 [Moles/Vol]26.2 mmol/YHhasuj91.0-32.0The [facility] Comment on above:Performed By: #### CMP, TSH, LIPID #### [facility] [address] [address] [address] David ZapataCreatinine [Mass/Vol]0.94 mg/dLNormal0.55-1.02The [facility] HospitalComment on above:Performed By: #### CMP, TSH, LIPID #### [facility] [address] [address] [address] David ChavisGFR-AF DJIBOUTIAN>60Normal>=60The [facility] HospitalComment on above:Performed By: #### CMP, TSH, LIPID #### [facility] [address] [address] [address] David ChavisGFR-NON AF DJIBOUTIAN>60Normal>=60The [facility] HospitalComment on above:Performed By: #### CMP, TSH, LIPID #### [facility] [address] [address] [address] David ZapataGlobulin (S) [Mass/Vol]3.3 g/dLNormalThe [facility] HospitalComment on above:Performed By: #### CMP, TSH, LIPID #### [facility] [address] [address] [address] David ZapataGlucose [Mass/Vol]100 mg/aNRlsvqe59-145OjlWvumedicine [facility] Comment on above:Performed By: #### CMP, TSH, LIPID #### [facility] [address] [address] [address] David ZapataPotassium [Moles/Vol]3.8 mmol/LNormal3.5-5.1The [facility] Comment on above:Performed By: #### CMP, TSH, LIPID #### [facility] [address] [address] [address] David ZapataProtein [Mass/Vol]6.9 g/dLNormal6.4-8.2The [facility] Comment on above:Performed By: #### CMP, TSH, LIPID #### [facility] [address] [address] [address] David ZapataSodium [Moles/Vol]138 mmol/BMlwash919-429Fln [facility] Comment on above:Performed By: #### CMP, TSH, LIPID #### [facility] [address], [place] [address] Dr. David ZapataUrea nitrogen [Mass/Vol]7.0 mg/dLNormal7.0-18.0The [facility] HospitalComment on above:Performed By: #### CMP, TSH, LIPID #### [facility] [address] [address] [address] David ZapataUrea nitrogen/Creatinine [Mass ratio]7.4 mg/mgNormalThe [facility] HospitalComment on above:Performed By: #### CMP, TSH, LIPID #### [facility] [address] [address] [address] David Tobias 98-65-5044ESC1.434 uIU/mLNormal0.358-3.740The [facility] HospitalComment on above:Performed By: #### CMP, TSH, LIPID #### [facility] [address] [place] [address] Dr. David ZapataMRI BRAIN WO W CONon 92-88-5799KMF BRAIN WO W CONEXAMINATION: MRI BRAIN WO W CON HISTORY: Imaging [...] a demyelinating process. Electronically authenticated by: EDILSON JOHN Date: 2022-06-10 06:40[facility] METABOLIC PANELon 51-55-8631Hsyevbj [Mass/Vol]8.6 mg/dL Normal8.6-10.3The [facility] HospitalComment on above:Order Comment: No: Do not add to previous drawPerformed By: #### 10966, 95155 #### [facility] [address] [place] [address], USAChloride [Moles/Vol]106 mmol/GYzlqbt02-718Pzk [facility] HospitalComment on above:Order Comment: No: Do not add to previous drawPerformed By: #### 14228, 92752 #### [facility] [address] [place] [address], USACO2 [Moles/Vol]24 mmol/IAdrxub96-90Nty [facility] HospitalComment on above:Order Comment: No: Do not add to previous draw Performed By: #### 01482, 79343 #### [facility] [address] [place] [address], USACreatinine [Mass/Vol]0.90 mg/dLNormal0.60-1.20The [facility] HospitalComment on above:Order Comment: No: Do not add to previous drawPerformed By: #### 13731, 76406 #### [facility] [address] [place] [address], USAGFR/1.73 sq M predicted among blacks MDRD (S/P/Bld) [Vol rate/Area]mL/min/{1.73_m2}Normal>60The [facility] Comment on above:Order Comment: No: Do not add to previous drawPerformed By: #### 33647, 12344 #### [facility] [address] [place] [address], USAGFR/1.73 sq M predicted among non-blacks MDRD (S/P/Bld) [Vol rate/Area]mL/min/{1.73_m2}Normal>60The [facility] Comment on above:Order Comment: No: Do not add to previous drawPerformed By: #### 40308, 40681 #### [facility] [address] [place] [address], USAGlucose [Mass/Vol]97 mg/pKVtotpb70-639Gul [facility] HospitalComment on above:Order Comment: No: Do not add to previous drawPerformed By: #### 08721, 03125 #### [facility] [address] [place] [address], USAPotassium [Moles/Vol]3.9 mmol/LNormal3.5-5.1The [facility] HospitalComment on above:Order Comment: No: Do not add to previous drawPerformed By: #### 82610, 00820 #### [facility] [address] [place] [address], USASodium [Moles/Vol]136 mmol/GHlqelp785-385Vqm [facility] HospitalComment on above:Order Comment: No: Do not add to previous drawPerformed By: #### 13735, 05601 #### [facility] [address] [place] [address], USAUrea nitrogen [Mass/Vol]11 mg/dLNormal7-25The [facility] HospitalComment on above:Order Comment: No: Do not add to previous drawPerformed By: #### 13380, 84711 #### [facility] [address] [place] [address], USACBC COMPLETE BLOOD COUNTon 16-36-9831Dztuutziojo distribution width (RBC) [Ratio]12.0 %Fgysil92.5-15.0The [facility] HospitalComment on above:Order Comment: No: Do not add to previous draw Performed By: #### 04317 #### [facility] [address] [place] [address], USAHematocrit (Bld) [Volume fraction]42.7 %Fnhqlp05.0-45.0The [facility] HospitalComment on above:Order Comment: No: Do not add to previous drawPerformed By: #### 10172 #### [facility] [address] [place] [address], USAHemoglobin (Bld) [Mass/Vol]13.9 g/fMInibxp30.0-15.0The [facility] HospitalComment on above:Order Comment: No: Do not add to previous drawPerformed By: #### 22729 #### [facility] [address] [place] [address], [facility] HOSPITALMCH (RBC) [Entitic mass]29.6 roNtmxhr85.0-33.0The [facility] HospitalComment on above:Order Comment: No: Do not add to previous drawPerformed By: #### 85430 #### [facility] [address] [place] [address], [facility] HOSPITALMCHC (RBC) [Mass/Vol]32.6 g/fTAuqfct94.0-35.0The [facility] HospitalComment on above:Order Comment: No: Do not add to previous drawPerformed By: #### 30713 #### [facility] [address] [place] [address], [facility] HOSPITALMCV (RBC) [Entitic vol]91.0 tWNscxwy64.0-98.0The [facility] HospitalComment on above:Order Comment: No: Do not add to previous drawPerformed By: #### 39491 #### [facility] [address] [place] [address], USANucleated RBC/100 WBC (Bld) [Ratio]0 %Normal0-0The [facility] HospitalComment on above:Order Comment: No: Do not add to previous drawPerformed By: #### 24707 #### [facility] [address] [place] [address], USAPLAT GKS085 10*3/nBXjpmps406-876Wnu [facility] HospitalComment on above:Order Comment: No: Do not add to previous draw Performed By: #### 06532 #### [facility] [address] [place] [address], USARBC (Bld) [#/Vol]4.69 10*6/uLNormal3.80-5.00The [facility] HospitalComment on above:Order Comment: No: Do not add to previous drawPerformed By: #### 57080 #### [facility] [address] [place] [address], CL[facility] HOSPITALWBC (Bld) [#/Vol]8.19 10*3/uLNormal4.00-10.60The [facility] HospitalComment on above:Order Comment: No: Do not add to previous drawPerformed By: #### 19251 #### [facility] [address] [place] [address], USACardiovascular Lab Reporton 49-87-6518Dsuxdlxpqipdkq Lab ReportUnOhioHealth Grove [facility] Chant[facility] MR #: [id number] Department of Physician: Mike Polanco M.D. Division of Service Date: 06/16/2019 Cardiology Birthdate: 1975 Adult Cardiovascular Room #: 3AB 326770 [facility] [address] [place], [place] [address] Cardiovascular Laboratory Report FINAL IMPRESSIONS: 1. Angiographically [...] the left radial artery was obtained. A 6-Romansh glide sheath was inserted without difficulty. Bilateral [...] A Vidhi Anderson M.D. Date Dict: 06/16/2019/03:28 PJaret Anderson M.D. Date Trans: 06/17/2019 04:09 A/adela DN_JN:[id number] cc: Pat Huston M.D. [address] [place] [address] Amos Vazquez M.D. [address], [facility] [id number] Jewish HospitalHEMOGLOBIN A1Con 87-92-9375TaE0n (Bld) [Mass fraction]4.8 %Normal4.0-6.0The [facility] HospitalComment on above:Order Comment: Yes: Add to Previous draw if ablePerformed By: #### 04345, 03218 #### [facility] [address] [place] [address], QOSRbL5k (Bld) [Mass fraction]91 mg/aDSdszpt32-154Wuc [facility] HospitalComment on above:Order Comment: Yes: Add to Previous draw if ablePerformed By: #### 44262, 62005 #### [facility] [address] [place] [address], USALIPID PROFILEon 81-94-6108Ipyeuaucnkn [Mass/Vol]209 mg/dL Dwfv164-244Kpu [facility] HospitalComment on above:Order Comment: Yes: Add to Previous draw if ableResult Comment: CHOLESTEROL REFERENCE RANGE: 20 YEARS AND OLDER CARDIOVASCULAR RISK Less than 200 mg/dl Low Risk 200 to 239 mg/dl Borderline Risk 240 mg/dl and greater High RiskPerformed By: #### 88028, 71258, 75220, 62331 #### [facility] [address] [place] [address], USACholesterol in HDL [Mass/Vol]35 mg/bNSjzzzf97-99StwRiverside Methodist HospitalComment on above:Order Comment: Yes: Add to Previous draw if ableResult Comment: Slight variation in normal range could be due to gender and/or age. HDL CHOLESTEROL REFERENCE RANGE: 20 years and older Cardiovascular Risk > or =60 mg/dL Desirable 40 TO 59 mg/dL Low Risk <40 mg/dL High RiskPerformed By: #### 72614, 08281, 79079, 36195 #### [facility] [address] [place] [address], USACholesterol in LDL [Mass/Vol]139 mg/dLHigh0-130The [facility] HospitalComment on above:Order Comment: Yes: Add to Previous draw if ableResult Comment: LDL IS A CALCULATION LDL IS ONLY VALID IF THE TRIG IS LESS THAN 400.Performed By: #### 91790, 32092, 43961, 38128 #### [facility] [address] [place] [address], USACholesterol.total/Cholesterol in HDL [Mass ratio]6.0 {ratio}High0.0-4.5The [facility] HospitalComment on above:Order Comment: Yes: Add to Previous draw if ablePerformed By: #### 87933, 00206, 23921, 27146 #### [facility] [address] [place] [address], USANON-HDL YMMWBYMCYBX228 mg/dLNormalThe [facility] HospitalComment on above:Order Comment: Yes: Add to Previous draw if able Performed By: #### 27930, 74229, 06019, 09220 #### [facility] [address] [place] [address], USATriglyceride [Mass/Vol]174 mg/rGPesa23-596Gqi [facility] HospitalComment on above:Order Comment: Yes: Add to Previous draw if ableResult Comment: TRIGLYCERIDE REFERENCE RANGE: 20 YEARS AND OLDER CARDIOVASCULAR RISK LESS THAN 150 mg/dl LOW RISK 150 TO 199 mg/dl BORDERLINE RISK 200 mg/dl AND GREATER HIGH RISKPerformed By: #### 56735, 24276, 59809, 16484 #### [facility] [address] [place] [address], USAVLDL CHOL35 mg/dLNormal0-40The [facility] HospitalComment on above:Order Comment: Yes: Add to Previous draw if able Performed By: #### 83969, 70163, 60820, 31772 #### [facility] [address] [place] [address], USAMAGNESIUM BLOODon 59-49-5888Qsfbgjqly [Mass/Vol]2.2 mg/dL Normal1.9-2.7The [facility] HospitalComment on above:Order Comment: No: Do not add to previous drawPerformed By: #### 78165, 02719, 89459, 47746 #### [facility] [address] [place] [address], USAPHOSPHORUS BLOODon 05-05-4382Mzntixouh [Mass/Vol]4.3 mg/dL Normal2.5-5.0The [facility] HospitalComment on above:Order Comment: No: Do not add to previous drawPerformed By: #### 17253, 26913 #### [facility] [address] [place] [address], USAAPTTon 24-67-3523fDAJ Coag (Bld) [Time]27.3 sNormal 25.0-35.0The [facility] HospitalComment on above:Result Comment: ALL RESULTS MUST BE INTERPRETED WITH RESPECT TO BLOOD DRAWING ARTIFACT OR DILUTION ERROR OF ANTICOAGULANT AT THE TIME OF SAMPLING. THE APTT SHOULD NOT BE USED TO MONITOR UNFRACTIONATED HEPARIN THERAPY, THIS LABORATORY NO LONGER HAS AN ESTABLISHED THERAPEUTIC RANGE BASED ON THE APTT. IT IS RECOMMENDED THAT THE UFH - HEPARIN ASSAY (ANTI-XA ACTIVITY) BE USED FOR THIS PURPOSE.Performed By: #### 31872, 72276 #### [facility] [address] [place] [address], CL[facility] HOSPITALBASIC METABOLIC PANELon 38-20-0316Psohmyr [Mass/Vol]9.3 mg/dLNormal8.6-10.3The [facility] HospitalComment on above:Order Comment: No: Do not add to previous drawPerformed By: #### 57329, 94140, 00945, 02907, 50315 #### [facility] [address] [place] [address], USAChloride [Moles/Vol]105 mmol/QKszkej97-452Jhk [facility] HospitalComment on above:Order Comment: No: Do not add to previous drawPerformed By: #### 65725, 21832, 75459, 07629, 69912 #### [facility] [address] [place] [address], USACO2 [Moles/Vol]23 mmol/MOwzakq27-39Zzy [facility] HospitalComment on above:Order Comment: No: Do not add to previous draw Performed By: #### 02674, 26326, 39155, 55086, 89114 #### [facility] [address] [place] [address], USACreatinine [Mass/Vol]0.85 mg/dLNormal0.60-1.20The [facility] HospitalComment on above:Order Comment: No: Do not add to previous drawPerformed By: #### 09910, 13138, 45956, 34787, 56052 #### [facility] [address] [place] [address], USAGFR/1.73 sq M predicted among blacks MDRD (S/P/Bld) [Vol rate/Area]mL/min/{1.73_m2}Normal>60The [facility] Comment on above:Order Comment: No: Do not add to previous drawPerformed By: #### 32689, 05745, 46529, 82435, 80268 #### [facility] [address] [place] [address], USAGFR/1.73 sq M predicted among non-blacks MDRD (S/P/Bld) [Vol rate/Area]mL/min/{1.73_m2}Normal>60The [facility] Comment on above:Order Comment: No: Do not add to previous drawPerformed By: #### 55695, 97917, 82960, 01696, 80602 #### [facility] [address] [place] [address], USAGlucose [Mass/Vol]91 mg/yNRwusdr22-787Xtr [facility] HospitalComment on above:Order Comment: No: Do not add to previous drawPerformed By: #### 38579, 13445, 90103, 67838, 39117 #### [facility] [address] [place] [address], USAPotassium [Moles/Vol]3.9 mmol/LNormal3.5-5.1The [facility] HospitalComment on above:Order Comment: No: Do not add to previous drawPerformed By: #### 85432, 27812, 78801, 74072, 43069 #### [facility] [address] [place] [address], USASodium [Moles/Vol]136 mmol/YKemhzd824-803Wip [facility] HospitalComment on above:Order Comment: No: Do not add to previous drawPerformed By: #### 13938, 85289, 40118, 84913, 14415 #### [facility] [address] [place] [address], USAUrea nitrogen [Mass/Vol]10 mg/dLNormal7-25The [facility] HospitalComment on above:Order Comment: No: Do not add to previous drawPerformed By: #### 25930, 22956, 86467, 60674, 08090 #### [facility] [address] [place] [address], USAFREE T3on 09-67-6744Bgwj T3 [Mass/Vol]2.6 pg/mLNormal 2.5-3.9The [facility] HospitalComment on above:Performed By: #### 22810, 41461, 60021, 56599, 89019 #### [facility] [address] [place] [address], USAFREE T4on 33-54-4645Uwhf T4 [Mass/Vol]0.73 ng/dLNormal 0.71-1.85The [facility] HospitalComment on above:Performed By: #### 75538, 02042, 55086, 74818, 89437 #### [facility] [address] [place] [address], USAMAGNESIUM BLOODon 99-18-0605Nglcwubcq [Mass/Vol]2.2 mg/dL Normal1.9-2.7The [facility] HospitalComment on above:Order Comment: No: Do not add to previous draw MissPerformed By: #### 14051, 70501, 52720, 26296, 47830 #### [facility] [address] [place] [address], USAPROTHROMBIN TIMEon 27-32-8555BRP Coag (PPP) [Relative time] 1.06 {INR}Normal0.91-1.16The [facility] HospitalComment on above:Result Comment: ACCCP RECOMMENDED INR FOR WARFARIN THERAPY ------- CONDITION INR PROPHYLAXIS OF VENOUS THROMBOSIS 2-3 (HIGH-RISK SURGERY) TREATMENT OF VENOUS THROMBOSIS 2-3 TREATMENT OF PULMONARY EMBOLISM 2-3 PREVENTION OF SYSTEMIC EMBOLISM: 2-3 ACUTE MYOCARDIAL INFARCTION TISSUE HEART VALVES VALVULAR HEART DISEASE ATRIAL FIBRILLATION RECURRENT SYSTEMIC EMBOLISM MECHANICAL HEART VALVE 2.5-3.5 FROM: ORAL ANTICOAGULANTS. MECHANISM OF ACTION, CLINICAL EFFECTIVENESS, AND OPTIMAL THERAPEUTIC RANGE. CHEST 1995;108:231S-246S.Performed By: #### 18204, 27829 #### [facility] [address] [place] [address], USAPT Coag (PPP) [Time]13.8 cRhmbev71.3-14.8The [facility] HospitalComment on above:Result Comment: ALL RESULTS MUST BE INTERPRETED WITH RESPECT TO BLOOD DRAWING ARTIFACT OR DILUTION ERROR OF ANTICOAGULANT AT THE TIME OF SAMPLING.Performed By: #### 85300, 05799 #### [facility] [address] [place] [address], JGZNMX8gf 93-12-9365PLL 3RD GENERATION1.94 uIU/mLNormal 0.34-5.60The [facility] HospitalComment on above:Performed By: #### 68010, 53433, 90717, 43826, 51532 #### [facility] [address] [place] [address], [facility] Vital Signs Date TimeVital SignValuePerforming JapwemdykPoqdatsf08-34-6066 16:18-0400 Diastolic blood pxhlgezo45 mm[Hg]Pat Huston MD Work Phone: [facility]07-31-2025 16:18-0400 Heart rate62 /minPat Huston MD Work Phone: [facility]07-31-2025 16:18-0400 Systolic blood iruaewnl408 mm[Hg]Pat Huston MD Work Phone: [facility]12-16-2024 11:00-0500 Body hnqluc664.1 Jostin Niño [employer] Work Phone: noCenterpoint Medical CenterKoigfmjlbe85-28-4115 11:00-0500Body mass index (BMI) [Ratio]35.65 kg/y8VtqslzHarlan Niño [employer] Work Phone: noCenterpoint Medical CenterLexjiuwpga37-78-1694 11:00-0500Body mmutkb98.18 kgHarlan Niño [employer] Work Phone: [facility] HospitalYxdjyhtrtx38-05-3204 11:00-0500Diastolic blood eoitdlul66 mm[Hg]Harlan Niño [employer] Work Phone: [facility] HospitalPhomlulzfr70-76-3112 11:00-0500Heart rate58 /min Harlan Daskeya [employer] Work Phone: [facility] HospitalKdbdjfucwv37-68-6206 11:00-0150EbJ9% (BldA) [Mass fraction]98 %Harlan Daskeya [employer] Work Phone: [facility] HospitalXxlgmswmzg54-19-7816 11:00-0500Systolic blood oaictgem598 mm[Hg]Harlan Niño [employer] Work Phone: [facility] HospitalBscczhswre39-83-2452 11:16-0400Body .1 cmC[facility]10-30-2024 11:16-0400Body mass index (BMI) [Ratio]35.4 kg/n2LwckksggsCleveland Clinic [facility]ucl[facility] Hospital10-30-2024 11:16-0400Body xlwabv14.61 kgC[facility] Clinic [facility] Hospital10-30-2024 11:16-0400Diastolic blood iwlqhslj69 mm[Hg][facility]10-30-2024 11:16-0400 Heart rate65 /minC[facility] Clinic [facility] Hospital10-30-2024 11:16-0400Systolic blood nqsksilv185 mm[Hg][facility]11-14-2023 10:29-0500 Body yiacmy120.1 cmMD Pat Huston Work Phone: [facility]11-14-2023 10:29-0500 Body .52 kgMD Pat Huston Work Phone: [facility] Encounters Encounter DateEncounter TypeCare ProviderFacilityStart: 05-24-2025 End: 44-51-5615jacckddqmgYxiirq E Braun MD Work Phone: [facility] Work Phone: Start: 05-24-2025 End: 17-95-7363Kzvpcyu encounter procedureHarlan Brandt [facility] Work Phone: Start: 05-03-2025 End: 15-76-8780nbimcixuxtOTNA [facility] Hospitaltart: 10-09-2024 End: 32-64-5075Fmppiu flowsRandolph Niño [employer] Work Phone: noMS [facility]TEStart: 10-09-2024 End: 40-71-3894Kxjczr flowsheetHarlan Niño [employer] Work Phone: noms [facility]TEStart: 10-09-2024 End: 79-33-9911Tsunwx outpatient visit 25 minutesHarlan Niño [employer] Work Phone: noms [facility] ROUTEComment on above:Abnormal MRI (Primary Dx); Anisocoria; Tremor; Tension-type headache, not intractable, unspecified chronicity pattern; Vertigo; Primary insomniaStart: 10-09-2024 End: 68-56-7488tyqotalflhIIGVGH GILLMORNot AvailableStart: 30-21-9013Hozsbve encounter statusHarrison Community Hospitaltart: 08-23-2024 End: 91-62-7187eepshamuviDxxafxcrcSelect [facility] Work Phone: Start: 08-23-2024 End: 94-41-8757Ymjivpl encounter procedureMartin [facility] Work Phone: Start: 02-28-2024 End: 03-48-9674lbbabdbnbzVQYWGR GILLMORNot AvailableStart: 04-10-1997Sjfrsfzpe encounterPat Colin [facility] Atl[facility]atart: 09-07-2023 End: 18-75-8630jshsbxliiwGwkfzs E BraunFacility:[facility] Hospitaltart: 09-07-2023 End: 84-19-9517pmufguoafbXG Marcia E Braun Work Phone: [facility] Work Phone: Start: 09-07-2023 End: 87-29-4843Nmpnahj encounter procedureMD Pat Huston Work Phone: [facility] [place] Work Phone: Start: 08-06-2023 End: 28-11-0675vscmknlkklUqndtr Braun Other [employer] Other Start: 37-61-1511Qxrkmkiul encounterMarcichantelle Cee Medical ClinicStart: 07-27-2023 End: 99-46-8084bafafpayfqBbuxyo Braun Other [employer] Other Start: 40-01-2369Lgiwevhqf encounterMarcia Dixie [facility]ee Medical ClinicStart: 07-13-2023 End: 93-31-9243qanwyjnmtcHnqnxs Robel Other [employer] Other Start: 65-15-5479Zplmooyit encounterMarcichantelle Cee Medical ClinicStart: 07-06-2023 End: 96-54-8551owuqvupbajHjdslo Braun Other [employer] Other Start: 76-40-0788Xqwoaojvp encounterMarcichantelle Cee Medical ClinicStart: 22-46-0413hksfjoxnuvRvdyhexivzk Abdelaziz Facility:[facility] Hospitaltart: 72-70-3852krtosaxpxdOR EHAB ELTAHAWYFacility:C0Rvdvq: 02-16-2023 End: 76-26-3451cdqvnedjipSS JL AGUILARFacility:X6Cmxej: 02-11-2023 End: 48-04-5692obtpyebwnwMM EHAB ELTAHAWYFacility:B8Vhupk: 36-79-2091Nestsxubi for general adult medical examination without abnormal findingsDR PAT HUSTON [facility] Healthtart: 11-19-2022 End: 00-40-3239jhpiiouiheMkbybd Huston Other [employer] Other Start: 93-26-1979Ysnrzhoin encounterPat Cee Medical ClinicStart: 11-18-2022 End: 51-72-1993iidcpsdmvjET PAT HUSTONFacility:H5Nrxyb: 11-18-2022 End: 84-54-6721Jjsvrsbof for general adult medical examination without abnormal findingsDR PAT HUSTONFacility:C1Lxgyn: 11-04-2022 End: 68-90-5424eybiytxdrsYK EHAB ELTAHAWYFacility:J9Xdlhv: 07-10-2022 End: 59-80-7129cjdokmjmreRY PAT HUSTONFacility:J3Mvnmn: 07-65-4789Ydryn health examinationPat Huston Other [employer] Other Start: 00-34-1148Faabepnxo for general adult medical examination without abnormal findingsPat Huston Other [employer] Other Start: 06-24-2022 End: 89-82-9433kopvoznshmEP PAT HUSTONFacility:B1Xrixc: 06-09-2022 End: 79-91-3342nswpdvuqdxMR DOCTOR MISCFacility:Q0Bnxqc: 06-16-2019 End: 33-80-4293Enwnesh encounter procedureOMAR AL-HOURANIFacility:UTMCStart: 97-89-6298Qsxddarvmclkc examination normalPat Huston Other [employer] Other Procedures DateProcedureProcedure DetailPerforming ClinicianStart: 50-74-4214ZPM of bilateral breasts with contrastMD Pat Robel Work Phone: Start: 80-78-2830Minqjabnr visitPat Huston Other Start: 42-58-3275Srovapsnvukhz care educationPat Robel Other Screening for malignant neoplasm of breastPat Robel Other Viral screeningPat Robel Other Plan of Treatment DateCare ActivityDetailAuthorStart: 04-02-2025 End: 76-65-6637Swqjdxh encounter ssfgkvxdo58/09/2025 4:00 PM EDT Office Visit [facility] [address] [id number] Harlan Niño NP [address] [place] [address] [facility] ROUTEStart: 10-09-2024 End: 09-06-2356Fzjgwfo encounter pqygjjnkf92/16/2024 10:40 AM EST Office Visit [facility] [address] [phone] Harlan Niño NP [address] [place] [address] ArrivedNOMS [facility] ROUTEComment on above: ArrivedComprehensive metabolic 2000 panel - Serum or PlasmaCleveland Clinic Euclid HospitalXR Pelvis and Hip - bilateral ViewsLarkin Community Hospital Payers DatePayer CategoryPayerPolicy [id number] Cross Blue ShieldBCBS [id number]14[id number] [id number] 2.16.840.6.49303[id number] 2.16.840.1.952465.3.57[id number] 2.16840.1.151717.3.57[id number] 2.0.1.616719.3.57[id number] 2.0.1.065605.3.57[id number] 2.0.1.505475.3.57[id number] 2.0.1.087546.3.579.[id number] 2.0.1.869126.3.57[id number] 2..1.336829.3.57[id number] 2.0.1.558410.3.57[id number] 2.840.1.346233.3.579.[id number] 2.0.1.889074.3.579.2.751997-57-7813Fams-[id number] Other1 (STD)[id number] 68139wdh-[id number]-[id number]-k62k-[id number] 2.16..1.8[id number] 2.16.840.1.121862.3.579.2.531 Social History DateTypeDetailFacilityUnknown if ever smokedSan [place] [facility] Other Start: 02-28-2024 End: 14-34-4885Qwo Assigned At [facility] Other Start: 47-17-4039Qsk [facility]: 04-20-2022 End: 13-67-3304Vvbdhgh smoking status NHISNever smoked tobacco (finding) [facility]: 45-24-5666Tdsdcqn use and exposure Smokeless tobacco non-userNOMS HealthcareStart: 02-28-2024 End: 82-37-5569Eikuaitnx beverage intakeLifetime non-drinker (finding)[facility] HealthcareStart: 02-28-2024 End: 11-67-1560Ydsuaaa of Social functionNOMS HealthcareStart: 64-54-3559Avjvhr identityIdentifies as female gender (finding)[facility] (finding) [facility] Clinical Notes 11-04-2022 to 05-03-2025 Note Date & OyciQxowQcopdnwi86-04-7253 [facility] Chief Complaint: Patient here for 1 year follow up CAD, chest pain, SOB, and palpitations. She had routine labs with lipid panel in Jul 2024, and PFT's this past December. Palpitations remain occasional for her, no more than normal. C/o intermittent chest pain and SOB. HPI: Elvia Fox is a 49 y.o. female with a [...] dizziness. She did see one of our roll wrapper Dr. Guevara and they discussed the potential [...] Paroxysmal tachycardia (CMS/HCC), Prinzmetal angina, and WPW (Vuioe-Pblelmuik-Nfnap syndrome). Surgical History She has a past [...] to pulmonary hypertension and/o (more content not included)...[facility] 07-27-2023 Evaluation note* Encounter Date Diagnosis Assessment Notes Treatment Notes Treatment Clinical Notes Jul, Abnormal mammogram (ICD-10 - R92 .8) [facility] Other 09-19-2023 Evaluation note* Encounter Date Diagnosis Assessment Notes Treatment Notes Treatment Clinical Notes Jun, Abnormal mammogram of right rae st (ICD-10 - R92.8) [facility] Other 09-12-2023 Evaluation note* Encounter Date Diagnosis Assessment Notes Treatment Notes Treatment Clinical Notes Jun, Screening mammogram for breast c ancer (ICD-10 - Z12.31) [facility] Other 01-11-2023 NoteCARDIAC STRESS TEST Requesting Physician: [...] further information. 7. Clinical correlation is recommended.[facility] HospitalEvaluation noteNo InformationNortTyler Memorial Hospital [employer] Other Evaluation noteNo assessment information available [facility] Work Phone: Evaluation note* Diagnosis Onset Date Resolution Status Bilateral hip pain acute [facility] Work Phone: Evaluation note* Diagnosis Abnormal MRI- [...] History Major depression, recurrent, chr onic Medical HistoryMajor depression, recurrent, chronicMedical HistoryGeneralized anxiety disorderMedical HistoryDepressionMedical HistoryDepressionMedical Historyprinzmetal anginaMedical Historyh/o DVTMedical HistoryARTHRITISMedical HistoryHYPERCHOLESTEROLEMIAMedical HistoryTHYROID DISEASEMedical History HYPERLIPIDEMIAMedical HistoryWOLFF PARKINSON WHITE SYNDROMEMedical History CERVICAL DISORDERSurgical Historyarthroscopy twice-2006,2008; rhinoplasty Surgical Historylap-hystoscopy, d&t8436Qvfnogiz HistoryhysterectomySurgical Historybone marrow grkruspl1038Yeujkswjdffzquc Historysee above [facility] [employer] Other History general Narrative - Reported* Type Description Date Medical History Major depression, recurrent, chr onic Medical HistoryMajor depression, recurrent, chronicMedical HistoryGeneralized anxiety disorderMedical HistoryDepressionMedical HistoryDepressionMedical Historyprinzmetal anginaMedical Historyh/o DVTMedical HistoryARTHRITISMedical HistoryHYPERCHOLESTEROLEMIAMedical HistoryTHYROID DISEASEMedical History HYPERLIPIDEMIAMedical HistoryWOLFF PARKINSON WHITE SYNDROMEMedical History CERVICAL DISORDERSurgical HistoryProblem Title : Bone Marrow Transplant, Problem Status : Active,Surgical HistoryProblem Title : Hysterectomy, Problem Status : Active,Surgical HistoryProblem Title : Knee arthroscopy, Problem Status : Active,Surgical HistoryProblem Title : Laparoscopy, Problem Comment : D&C, Hysteroscopy, Problem Status : Active, Attribute Title : [Insert Date into Details],Surgical HistoryProblem Title : Laparoscopy, Problem Comment : D&C, Hysteroscopy, Problem Status : Active, Attribute Title : Outpatient,Surgical HistoryProblem Title : 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: Right knee arthroscopy, Problem Status : Inactive,Surgical HistoryProblem Title : past surgical history reviewed, Problem Description : past surgical history reviewed, Problem Comment : reviewed - no changes required, Problem Status : Active,Surgical HistoryProblem Title : Right knee arthroscopy, Problem Status : Active,Surgical HistoryProblem Title : surgical procedures, hx of, Problem Description : surgical procedures, hx of, Problem Comment : Right Knee Arthroscopy Rhinoplasty Hysterectomy ( has ovaries) 2017 BTL Bone marrow donor to sister, Problem Status : Active,Surgical History Problem Title : surgical procedures, hx of, Problem Description : surgical procedures, hx of, Problem Comment : Right Knee Arthroscopy Rhinoplasty, Problem Status : Active,Surgical HistoryProblem Title : Tubal Ligation, Problem Status : Active,Hospitalization Historysee above [facility] Other Reason for referral (narrative)No reason for referral information availableWvumedicine [facility] Hospital Work Phone: Summary Purpose Family History No Family History Records Found Relationship Condition Age at Onset Recorded Date/T porfirio father Hypertension Unknown Heart diseaseUnknownHistory of strokeUnknownmotherHypertensionUnknown Advance Directives No Advanced Directives Records Found Advance Directive Response Recorded Date/ Time Advance Directives No August 9:55am Advance Directive Response Recorded Date/ Time Advance Directives No August 10:55am Hospital Course Note MR#: [id number] I [facility] Pt. Name: Elvia Fox Admitted: 06/16/2019 Discharged: 06/17/2019 Date of : 1975 Physician: Alessandro Lin MD DISCHARGE SUMMARY PRIMARY DIAGNOSES: 1. Typical chest pain with abnormal stress test. Post heart catheterization, which demonstrated no significant coronary artery stenosis. 2. Major depressive disorder. 3. Lower end of normal T4 with normal TSH. 4. Ndmcj-Pwgysalqi-Ulluw. HOSPITAL COURSE: The patient is a 43-year-old [...] and content) DATE CREATED AUTHOR 09/18/2019 [facility] DATE CREATED AUTHOR AUTHOR'S ORGANIZ ATION 03/07/2023 [facility] DATE CREATED AUTHOR AUTHOR'S ORGANIZ ATION 10/14/2023 [facility] DATE CREATED AUTHOR AUTHOR'S ORGANIZ ATION 10/11/2024 [facility] DATE CREATED AUTHOR AUTHOR'S ORGANIZ ATION 06/08/2025 [facility] REASON FOR VISIT (unrecogniz ed section and [...] Start: August 23, 2024 End: August 23, 2024Team MemberRelationshipSpecialtyStart DateEnd Date Pta Huston MD [address] [place] [id number] [facility]02/27/24Team MemberRelationshipSpecialtyStart DateEnd Date Pat Huston MD [address] [place] [address] PCP - General02/27/24 Jl Aguilar DO [address] [place] [address] Referring XwvjsujuhLfziptmgw24/16/24 Team Status: Inactive Member Role Status Dates Pat Huston MD Primary Care Provider Active Start: May 24, 2025 End: May 24christiano Niño APRNAtkristi ProviderActiveStart: May 24, 2025 End: May 24, 2025 [...] BE BASED ON THE PRIMARY CLINICAL RECORDS. [employer] [facility]. provides no warranty or guarantee of the accuracy or completeness of information in this document.
--- NOTE | 2025-08-22 12:06 | ECG_ITS ---
[facility] Test Date: 2025-08-22 Pat Name: ELVIA GUTIÉRREZ Department: Room: - Gender: Female [place]: : 1975 Requested By: 1030 Order Number: [id number] Reading MD: DALTON OROZCO Measurements Intervals [place] Rate: 56 P: 47 AL: 124 QRS: 55 QRSD: 84 T: 28 QT: 420 QTc: 412 Interpretive Statements 1100 Sinus rhythm 9110 normal ECG Compared to ECG 06/15/2019 09:12:18 Short AL interval no longer present Electronically Signed On 08-22-2025 18:40:22 EDT by DALTON OROZCO
[2025-08-22 12:10] VITALS: PULSE 60; O2SAT 93
--- NOTE | 2025-08-22 12:13 | ED.GENADUL1 ---
HPI HPI - General Adult General Chief complaint: Arrhythmia/Palpitations Stated complaint: ABNORMAL LABS Time Seen by Provider: 08/22/25 12:00 Source: patient Mode of arrival: walk-in Limitations: no limitations History of Present Illness HPI narrative: 49-year-old female presented to the emergency department as instructed by her family doctor. She had some outpatient routine blood work done for a wellness check today and she was called and told that her potassium was 2.9. She always has palpitations, PVCs and sees a room attendants about that issue. She is not on a potassium supplement and has never had problems with her potassium previously. Related Data Home Medications ?Medication ?Instructions ?Recorded ?Confirmed aspirin 81 mg tablet,delayed 81 mg PO DAILY 08/22/25 08/22/25 release bupropion HCl 300 mg 24 hr tablet, 300 mg PO DAILY 08/22/25 08/22/25 extended release diltiazem HCl 240 mg mg PO 08/22/25 capsule,extended release 24 hr (Cartia XT) duloxetine 30 mg capsule,delayed 30 mg PO DAILY 08/22/25 08/22/25 release hctz 25 mg 08/22/25 isosorbide mononitrate 120 mg 120 mg PO DAILY 08/22/25 08/22/25 tablet,extended release 24 hr metoprolol tartrate 10 mg/mL oral 25 mg PO BID 08/22/25 08/22/25 solution (Lopressor) nitroglycerin 0.4 mg sublingual mg 08/22/25 tablet rosuvastatin 40 mg tablet (Crestor) 40 mg PO DAILY 08/22/25 08/22/25 Previous Rx's ?Medication ?Instructions ?Recorded potassium chloride 20 mEq 40 meq (2 x 20 mEq) PO DAILY #6 08/22/25 tablet,extended release tabs Allergies Allergy/AdvReac Type Severity Reaction Status Date / Time acetaminophen (From Percocet) Allergy Mild Vomiting Verified 08/22/25 11:51 levofloxacin (From Levaquin) Allergy Mild Rash Verified 08/22/25 11:51 meperidine (From Demerol) Allergy Mild Vomiting Verified 08/22/25 11:51 oxycodone (From Percocet) Allergy Mild Vomiting Verified 08/22/25 11:51 propoxyphene (From Allergy Mild Vomiting Verified 08/22/25 11:51 Darvocet-N) Review of Systems ROS Narrative A ten point review of systems is negative except as noted above. PFSH PFSH Social History Little interest or pleasure in doing things: not at all Feeling down, depressed, or hopeless: not at all Exam Narrative Exam Narrative: Nurses note and vital signs reviewed General:The patient appears well and in no apparent distress.Patient is resting comfortably on cart. Skin:Warm, dry, no pallor noted.There is no rash noted. Head:Normocephalic, atraumatic Eye: Normal conjunctiva, no drainage Ears, Nose, Mouth, and Throat: oral mucosa is moist. Nares patent. Cardiovascular:Regular Rate and Rhythm Respiratory:Patient is in no distress, no accessory muscle use, lungs are clear to auscultation, no wheezing, rales or rhonchi Back:non-tender GI: Soft and nontender Musculoskeletal: The patient has no evidence of calf tenderness, no pitting edema, symmetrical pulses noted bilaterally Neurological:A&O, normal speech Psychiatric:Cooperative Constitutional Vital Signs, click to edit/add: Last Vital Signs Temp 98.8 F 08/22/25 11:51 Pulse 69 08/22/25 12:40 Resp 14 08/22/25 12:40 BP 101/71 08/22/25 12:17 Pulse Ox 95 08/22/25 12:40 O2 Del Method Room Air 08/22/25 11:51 Course Vital Signs Vital signs: Vital Signs Temperature 98.8 F 08/22/25 11:51 Pulse Rate 57 L 08/22/25 11:51 Respiratory Rate 18 08/22/25 11:51 Blood Pressure 114/75 08/22/25 11:51 Pulse Oximetry 100 08/22/25 11:51 Oxygen Delivery Method Room Air 08/22/25 11:51 Temperature 98.8 F 08/22/25 11:51 Pulse Rate 69 08/22/25 12:40 Respiratory Rate 14 08/22/25 12:40 Blood Pressure 101/71 08/22/25 12:17 Pulse Oximetry 95 08/22/25 12:40 Oxygen Delivery Method Room Air 08/22/25 11:51 Medical Decision Making MDM Narrative Medical decision making narrative: Potassium is 2.9. She does not require IV potassium and was given oral supplementation as well as a prescription for 3 days of potassium, 40 mEq each day. She will have her potassium rechecked on August 26 and a handwritten prescription for that order was given to her. Treatment diagnosis and follow-up were discussed with the patient. Differential Diagnosis Differential Diagnosis: Hypokalemia ECG Data Attestation: I personally reviewed and interpreted this ECG as follows: (EKG on my interpretation shows sinus rhythm with rate of 56 and no acute change) Discharge Plan Discharge Chief Complaint: Arrhythmia/Palpitations Clinical Impression: Hypokalemia Patient Disposition: Home, Self-Care Time of Disposition Decision: 13:08 Condition: Good Mode of Transportation: Private Vehicle Prescriptions / Home Meds: New potassium chloride 20 mEq tablet extended release 40 meq PO DAILY Qty: 6 0RF No Action diltiazem HCl [Cartia XT] 240 mg capsule,extended release 24hr PO nitroglycerin 0.4 mg tablet, sublingual hctz 25 mg bupropion HCl 300 mg tablet extended release 24 hr 300 mg PO DAILY duloxetine 30 mg capsule,delayed release(DR/EC) 30 mg PO DAILY aspirin 81 mg tablet,delayed release (DR/EC) 81 mg PO DAILY isosorbide mononitrate 120 mg tablet extended release 24 hr 120 mg PO DAILY Lopressor 10 mg/mL solution 25 mg PO BID rosuvastatin [Crestor] 40 mg tablet 40 mg PO DAILY Print Language: Serbian Instructions: Hypokalemia (ED) Additional Instructions: Potassium to be rechecked on August 26. Referrals: Pat Dominique MD [Primary Care Provider, Family Practice] - 1 week
[2025-08-22] MEDS: POTASSIUM BICARBONATE/CIT 25 MEQ TABLET EFF 50 MEQ PO (12:15)
[2025-08-22 12:17] VITALS: BP 101/71; PULSE 60
[2025-08-22 12:40] VITALS: PULSE 69; O2SAT 95
== END 2025-08-22 13:19 | disposition home or self-care (01) ==
PROVIDERS: Emergency Provider Emergency Medicine; PCP Family Medicine
DX: E87.6 Hypokalemia (principal)
CPT/HCPCS: 93005; 99283

== ENCOUNTER 2025-08-27 07:40 | Outpatient (OUT) | payer BC, SELFPAY ==
--- OUTSIDE RECORDS SUMMARY | 2025-08-27 07:46 | XMS_ITS | Clinical Summary ---
Author Organization [facility] Address [address] [place] [address] Care Team Providers Care Secondary Education Professor Name Role Phone Pat Dominique MD Primary Care Provider [phone] Allergies Active AllergyReactionsCriticalityNoted BrtzZvlnidmgGlctcpbtnxqnYgwgp15/28/2021 MeperidineGI intolerance,Other12/15/2013Oxycodone-AcetaminophenOther,GI izzsptdmyqc38/21/2014Propoxyphene N-AcetaminophenOther,GI vixjpxpyvoa68/21/2014 Medications MedicationSigDispense QuantityRefillsLast FilledStart DateEnd DateStatus buPROPion XL (Wellbutrin XL) 300 mg 24 hr tablet Take 300 mg by mouth in the morning.Active DULoxetine (Cymbalta) [address] capsule Take 30 mg by mouth in the morning.Active hydroCHLOROthiazide (HYDRODiuril) 25 mg tablet Indications:Essential hypertensionTAKE 1 TABLET BY MOUTH IN THE MORNING 90 tablet 5Active clopidogrel (Plavix) 75 mg tablet Indications:Coronary artery disease of [place] artery of [place] heart with stable angina pectorisTAKE 1 TABLET BY MOUTH ONCE DAILY DIRECTED 90 tablet 5Active metoprolol tartrate (Lopressor) 25 mg tablet Indications:Coronary artery disease of [place] artery of [place] heart with stable angina pectorisTAKE 1 TABLET [...] 40 mg tablet Indications:Coronary artery disease of [place] artery of [place] heart with stable angina pectorisTAKE 1 TABLET [...] capsule ctive Active Problems ProblemNoted DateDiagnosed DatePrimary bnndpizf58/06/2915Ulrwcg69/06/2024Vertigo 02/28/2024bnormal MRI02/25/20248453Exdmcyisqk70/03/2024erebrovascular disease 02/25/2024Eye exam /03/2024Tension type bviyfutk08/03/2024hest pain 12/07/2022 Overview (12/07/2022): Added automatically from request for surgery [id number] Paroxysmal ceaqdwrvmmo28/06/2020Prinzmetal nkhhzf3605/30/20205437Nlzxi-Qitfskrvk-Fojcv xlpxwik3805/30/20201498Prijzf98/05/2014 Overview (09/25/2022): Last Assessment & Plan: She [...] for the next 7 days. Encounters DateTypeDepartmentCare HsxzCukscgqmmly52/13/2025Telephone [facility] [address] [place] [address] RebecaMaria Dolores oro MA 06/04/2025Orders Only [facility] [address] [place] [address] Provider, MD Renzo from Last 3 Months Family History Medical HistoryRelationNameCommentsHeart diseaseFatherSupraventricular tachycardiaMotherHeart diseasePaternal GrandfatherHeart diseasePaternal GrandmotherSupraventricular tachycardiaSisterRelationNameStatusCommentsFather MotherPaternal GrandfatherPaternal GrandmotherSister Social History Tobacco UseTypesPacks/DayYears UsedDateSmoking Tobacco: NeverSmokeless Tobacco: Never Tobacco Cessation:Counseling Given: No Alcohol UseStandard Drinks/WeekCommentsNot Currently0 (1 standard drink = 0.6 oz pure alcohol)[place] Safety & EnvironmentAnswerDate RecordedFear of Current or Ex-PartnerNot on file12/16/2023Emotionally AbusedNot on file12/16/2023hysically AbusedNot on file12/16/2023Sexually AbusedNot on file12/16/2023hysically or Sexually AbusedNot on file12/16/2023CommentsNoSex and Gender Information ValueDate RecordedSex Assigned at BirthNot on fileLegal QowFuxiny09/29/2022 10:21 PM EDTGender IdentityNot on fileSexual OrientationNot on file Last Filed Vital Signs Vital SignReadingTime TakenCommentsBlood Yhdooxwh713/7207 9:25 AM EDT Ppylm3575 9:25 AM EDTTemperature--Respiratory Uven6528/04/2023 3:30 PM ESTOxygen Mdnjgbxmiq92%05/03/2025 9:25 AM EDTInhaled Oxygen Concentration-- Wssbpv51.3 kg (208 lb)05/03/2025 9:25 AM DFORgzkdl387.6 cm (5' 6 )05/03/2025 9:25 AM EDTBody Mass Index33.57005/03/2025 9:25 AM EDT Plan of Treatment Health MaintenanceDue DateLast DoneCommentsCT Blrclcxktdvk1977Colonoscopy 1975Colorectal Cancer Clmlykjpu1977FIT-DNA1977FIT1977 FOBT1975 4441Vpdvrhmyksvvs1977Depression Nyjgsmpex12/10/1989Hepatitis B Vaccines (1 of 3 - 19+ 3-dose series)1996Pneumococcal Vaccine: Pediatrics (0 to 5 Years) and At-Risk Patients (6 to 64 Years) (1 of 2 - PCV)1996Pap Smear1998Adult Ecohncm9009/03/1999Cervical Cancer Ndlanxbos34/10/2007 HPV/Oczymy0109/03/20074017Zjtramxbc39/10/2017COVID-19 Vaccine ( season) , 11/21/2020, 10/23/2020Influenza Vaccine [...] Procedures Procedure NamePriorityDate/TimeAssociated DiagnosisCommentsTREADMILL STRESS MYOCARDIAL PERFUSION UKCWIQLYxlnwbi06/04/2025 9:09 AM EDTfrom Last 3 Months Results * Treadmill Stress Myocardial Perfusion Imaging (05/28/2025 9:09 AM EDT) Anatomical RegionLateralityModalityOther Narrative Authorizing ProviderResult TypeResult StatusHistorical Provider MDCV STRESS PROCEDURESFinal Result from Last 3 Months Insurance Care Teams Team MemberRelationshipSpecialtyStart DateEnd Date Pat Dominique MD [address] [facility] [address] PCP - Nkpuaee07/2/22
--- OUTSIDE RECORDS SUMMARY | 2025-08-27 07:46 | XMS_ITS | Clinical Summary ---
Author Organization [facility] Address [address] [place] [address] Care Team Providers Care Mice Raiser Name Role Phone Amos Vazquez MD Primary Care Provider [phone] Addie Mojica RN Unavailable [phone] Allergies Active AllergyReactionsCriticalityNoted DateCommentsPropoxyphene N-Acetaminophen Yxvacyul54/21/3423SjusjdlvvsOjauyfvx19/21/2014Oxycodone-AcetaminophenVomiting 12/15/2013 Medications MedicationSigDispense QuantityRefillsLast FilledStart DateEnd DateStatus PRISTIQ 50 mg 24 hr tablet Take 50 mg by mouth once daily.12/14/2013ctive HYDROcodone-acetaminophen 5-325 mg per tablet Take 1-2 tablets by mouth every 6 hours as needed for Pain. 30 tablet ctive Active Problems ProblemNoted DateDiagnosed NijzCvwjnu98/05/2014 Assessment & Plan (12/27/2013 11:30 AM EST): [...] InformationValueDate RecordedSex Assigned at BirthNot on fileLegal XjjMgutwr20/02/2012 8:55 AM ESTGender Identity Not on fileSexual OrientationNot on fileOccupationIndustryJob Start DateJob End DateCardiovascular TechNot on fileNot on fileNot on file Last Filed Vital Signs Vital SignReadingTime TakenCommentsBlood Dbzqjihc624/6903 2:10 PM EDT Yhfen1563 2:10 PM OSWTjmcwweavry06.8 ??C (98.2 ??F)01/16/2014 2:10 PM EDTRespiratory Skyv6671 2:10 PM EDTOxygen Ebvzritict86%01/16/2014 2:10 PM EDTInhaled Oxygen Concentration--Lgvcfa17 kg (200 lb 9.9 oz)01/16/2014 2:10 PM YHELdzjkt647 cm (5' 4.96 )01/16/2014 2:10 PM EDTBody Mass Index33.42 01/16/2014 2:10 PM EDT Plan of Treatment Health MaintenanceDue DateLast DoneCommentsAnxiety Djuaijnye16/10/1995Depression Oibzhkibc73/10/1995Hepatitis C Defarxgeu57/10/1995DTaP,Tdap,Td Vaccine (1 - Tdap)1996Hepatitis B Vaccine (1 of 3 - 19+ 3-dose series)1996 Cervical Cancer Ixneymeme52/10/1998Mammogram Ejwgqjccm62/10/2017CT Colonography 2Cologuard (FIT-DNA)0272Thfzdhopjkb64/10/2022Colorectal Cancer Rteplocmp19/10/2022Diabetes Hnzmbgzey12, 12/15/2013Fecal Occult Blood2022Lipid Pxhbnghgd02/10/1789Bcsouljeiwqjv91/10/2022Covid-19 Vaccine ( - season)2025Influenza Vaccine (#1)2025HIV OhhafrcqiMszstspxt54/21/2014 Procedures Procedure NamePriorityDate/TimeAssociated DiagnosisCommentsCOMPREHENSIVE METABOLIC NFZFVTizldte50/05/2014 8:48 AM EST Bone marrow donor IDM PANEL GOJBVHbfcwbw82/21/2014 12:10 PM EST Bone marrow donor from Last 3 Months or Most Recently Relevant to Health Maintenance Results * (ABNORMAL) COMP METABOLIC PANEL (12/27/2013 8:48 AM EST)ComponentValueRef RangeTest MethodAnalysis TimePerformed AtPathologist SignatureProtein, Total 7.06.0 - 8.4 g/dLWOOSTER COMMUNITY [facility]PITAL MAIN LABORATORYAlbumin4.03.5 - 5.0 g/dL [facility] LABORATORYCalcium9.08.5 - 10.5 mg/dLWOOSTER COMMUNITY HOSPITAL MAIN LABORATORYBilirubin, Total0.40.0 - 1.5 mg/dLOHIOHEALTH GROVE CITY [facility]IST [facility] LABORATORYAlkaline Vfrfigezyym5859 - 150 U/LCBARBERTON CITIZ[facility] LAB[facility]ATORY LHW300 - 40 U/LCK[facility] LVJCUAZRUFTvocsfd30(L)65 - 100 mg/dL [facility] LABORATORYBUN7(L)8 - 25 mg/dLOHIOHEALTH GROVE CITY [facility]IST [facility] LABORATORYCreatinine0.810.70 - 1.40 mg/dLOHIOHEALTH GROVE CITY [facility] LABORATORY Dfvfwf154875 - 148 mmol/LCK[facility] LABORATORYPotassium4.03.5 - 5.0 mmol/LCBARBERTON CITIZENS [facility] MAIN LCXBZGZYQOMrxzkwwb45653 - 110 mmol/LCK[facility] QZRUAHETZLAK94093 - 32 mmol/L[facility] LABORATORYAnion Gap70 - 15 mmol/LCK[facility] KGGCBAXBKRTOL290 - 45 U/LCK[facility] LABORATORYeGFR->60[facility] eGFR-All Other Races>60.[facility] LABORATORYComment: eGFR (Estimated GFR) Units of [...] StatusRegis Cr MDLABORATORYFinal ResultPerforming OrganizationAddressCity/State/ZIP CodePhone Number [facility] [address] [place] [address] * (ABNORMAL) IDM PANEL ADULT (12/15/2013 12:10 PM EST)ComponentValueRef Range Test MethodAnalysis TimePerformed AtPathologist SignatureHBsAgNegative or NonreactiveNEGNROHIOHEALTH GROVE CITY [facility]IST HOSPITAL LABORATORYanti-HCVNegative or NonreactiveNEGNROHIOHEALTH GROVE CITY [facility] LABORATORYanti-HIV1/2Negative or NonreactiveNEGNROHIOHEALTH GROVE CITY [facility] LABORATORYanti-HBcNegative or NonreactiveNEGNRCLEVELAND CLINIC MAIN LABORATORYanti-HTLV I/IINegative or NonreactiveNEGNRWOOSTER COMMUNITY HOSPITAL MAIN LABORATORYSTSNegative or Nonreactive NEGHOLZER HOSPITAL LABORATORYCMVPositive or Reactive(A)NEGHOLZER HOSPITAL LABORATORYHIVNATNegative or NonreactiveNEGHOLZER HOSPITAL LABORATORYHCVNATNegative or NonreactiveNEGMAGRUDER MEMORIAL [facility] MAIN LABORATORY HBVNATNegative or NonreactiveNEGHOLZER HOSPITAL LABORATORYWNVNAT Negative or NonreactiveNEGHOLZER HOSPITAL LABORATORYChagasNegative or NonreactiveNEGHOLZER HOSPITAL LABORATORYExpiration of [id number] Test kits are FDA approved for Donor Screening Testing. Test performed by: [facility], [address] [place] [id number], CLIA No. [id number].[facility] LABORATORYSpecimen (Source)Anatomical Location / LateralityCollection Method / VolumeCollection TimeReceived TimeBlood specimen (specimen)BLOOD SPECIMEN / Hwoyrzq1012/15/2013 12:10 PM EST12/15/2013 12:16 PM EST Narrative Authorizing ProviderResult TypeResult StatusAamiguel angel Cr MDLABORATORYFinal ResultPerforming OrganizationAddressCity/State/ZIP CodePhone Number [facility] [address] [place] [address] from Last 3 Months or Most Recently Relevant to Health Maintenance Insurance * Guarantor: Elif Gutiérrez TypeRelation to PatientDate of BirthPhone Billing AddressPersonal/XzmwklVvqn1975 [address] [address] * Guarantor: Gutiérrez, Elif AAccount TypeRelation to PatientDate of BirthPhone Billing EyyhgnmIitniKlhg1975 [address] [address] Care Teams Team MemberRelationshipSpecialtyStart DateEnd Amos Vazquez MD PCP - GeneralFamily Medicine11/15/13 Addie Mojica, BELÉN [address] [place] [address] Registered NurseBlood and Marrow Transplant12/06/13
--- OUTSIDE RECORDS SUMMARY | 2025-08-27 07:46 | XMS_ITS | Clinical Summary ---
Author Organization [employer] [facility] Address [id number] [place] [address] Care Team Providers Care Ballet Dancer Name Role Phone Pat Dominique MD Primary Care Provider [phone] Allergies Active AllergyReactionsCriticalityNoted DateCommentsPropoxyphene N-Acetaminophen Ttnyxihg85/28/2544FwnqwttazskuXfggn16/28/7576AhopkhiyqiPiiwoqhm15/21/2014 Oxycodone-WccluwtgvkbemIexxpxxf29/21/2014 Medications MedicationSigDispense QuantityRefillsLast FilledStart DateEnd DateStatus buPROPion [...] UseTypesPacks/DayYears UsedDateSmoking Tobacco: NeverSmokeless Tobacco: NeverPHQ-2AnswerDate RecordedTotal Rhxey687/10/2022ChildcareAnswerDate Recorded XsswtyzmiHzjylph51/10/2019EmploymentAnswerDate RecordedEmploymentUnknown 04/03/2019CommentsUnknownSex and Gender InformationValueDate RecordedSex Assigned at BirthNot on fileLegal HdpQcqqoq41/04/2015 2:10 PM EDTGender Identity Not on fileSexual OrientationNot on file Last Filed Vital Signs Vital SignReadingTime TakenCommentsBlood Fqplbrbj082/7708 10:39 AM EDT Hbsjt074306/03/2022 10:39 AM EDTTemperature--Respiratory Rate--Oxygen Saturation-- Inhaled Oxygen Concentration--Lebxxw09.1 kg (214 lb)06/03/2022 10:39 AM EDT Jqufqw747.6 cm (5' 4 )06/03/2022 10:39 AM EDTBody Mass Index36.7306/03/2022 10:39 AM EDT Plan of Treatment Health MaintenanceDue DateLast DoneCommentsDepression Zztkrgikh72/10/1989Tobacco Eksrwnahm56/10/1989Adult BMI Ubhlfyxmd90/10/1995DTaP,Tdap and Td Vaccines (1 - Tdap)1996Pap Smear1998COVID-19 Vaccine ( - 2024- season) 510/, 11/21/2020, 10/23/2020Influenza Xcnsmli9006/25/2025 08/19/2018 Medical Devices Not on file Insurance Care Teams Team MemberRelationshipSpecialtyStart DateEnd Date Pat Dominique MD [facility] [place] [address] PCP - GeneralFamily Tbmelkiv31/28/21
--- OUTSIDE RECORDS SUMMARY | 2025-08-27 07:46 | XMS_ITS | Clinical Summary ---
Author Organization [facility] Address [address] [place] [address] Care Team Providers Care Tax Expert Name Role Phone Pat Dominique MD Primary Care Provider [phone] Nell Aguilar DO Unavailable [phone] Allergies Active AllergyReactionsCriticalityNoted DateCommentsMeperidine HclGI intolerance 02/25/2024Oxycodone-AcetaminophenGI lpoatbaruyq45/03/2024 Medications MedicationSigDispense QuantityRefillsLast FilledStart DateEnd DateStatus buPROPion [...] tablet Take 40 mg by mouth at ekerwrw5912/01/2023ctive nitroglycerin (Nitrostat) 0.[address] 0.4 mg under the tongue every 5 (five) minutes if needed for chest pain Active Active Problems ProblemNoted DateDiagnosed DatePrimary jgexzlqp87/06/2024Tension-type headache, not zrcpnhlakqe52/06/6347Lzxpwn43/06/7683Qfumrgk91/06/2024Eye exam abnormal 02/25/2024bnormal MRI02/25/20249886Xorsidspzu37/03/2024Intractable tension-type /03/2024erebrovascular frcfiia1002/25/2024 Family History Medical HistoryRelationNameCommentsCoronary artery diseaseFatherHyperlipidemia FatherStrokeFatherHyperlipidemiaMotherHypertensionMotherOsteoarthritisMother CancerSisterHyperlipidemiaSisterKidney diseaseSisterOsteoarthritisSisterRelation NameStatusCommentsFatherMotherSister Social History Tobacco UseTypesPacks/DayYears UsedDateSmoking Tobacco: NeverSmokeless Tobacco: Never Tobacco Cessation:Counseling Given: Not Answered Alcohol UseStandard Drinks/WeekCommentsNever0 (1 standard drink = 0.6 oz pure alcohol)CommentsUnknownSex and Gender InformationValueDate RecordedSex Assigned at RtnfyKeydad42/05/2024 3:50 PM EDTLegal EhiXjylhm59/15/2023 7:17 PM EDTGender MedpbsmyOucyhq24/05/2024 3:50 PM EDTSexual OrientationNot on file Last Filed Vital Signs Vital SignReadingTime TakenCommentsBlood Isvcwwwi010/6810/09/2024 11:00 AM EST Flwjd912710/09/2024 11:00 AM ESTTemperature--Respiratory Rate--Oxygen Saturation 98%10/09/2024 11:00 AM ESTInhaled Oxygen Concentration--Mgbphu01.2 kg (214 lb 4 oz)10/09/2024 11:00 AM CSEBmukoo279.1 cm (5' 5 )10/09/2024 11:00 AM ESTBody Mass Index35.6510/09/2024 11:00 AM EST Plan of Treatment Not on file Insurance MemberSubscriberPlan / Payer (Effective 2022-Present)Name:Elif Fox Member ID:[id number] Relation to Subscriber:SelfName:Elif Fox Subscriber ID:[id number] Payer ID:Not on file Type:Not on file Address: [facility] [address] [place] [address] Care Teams Team MemberRelationshipSpecialtyStart DateEnd Date Pat Dominique MD PCP - General02/27/24 Nell Aguilar DO [address] [place] [address] Referring ZeoupgnikQcnecftqp03/16/24
--- OUTSIDE RECORDS SUMMARY | 2025-08-27 07:46 | XMS_ITS | Encounter Summary ---
Author Organization [facility] Address [address] [place] [address] Care Team Providers Care French Professor Name Role Phone Pat Dominique MD Primary Care Provider [phone] Minal Petty NP Unavailable [phone] Nell Aguilar DO Unavailable Encounter Details DateTypeDepartmentCare Team (Latest Contact Info)Lrrbgrsbxml71/23/2024Clinisync Result Encounter [facility] External Department Unsolicited Minal Petty NP Social History Tobacco UseTypesPacks/DayYears UsedDateSmoking Tobacco: NeverSmokeless Tobacco: NeverAlcohol UseStandard Drinks/WeekCommentsNever0 (1 standard drink = 0.6 oz pure alcohol)CommentsUnknownSex and Gender InformationValueDate Recorded Sex Assigned at IfbxhItvvij86/05/2024 3:50 PM EDTLegal HkrAjcrup45/15/2023 7:17 PM EDTGender RginwllwVjpdig32/05/2024 3:50 PM EDTSexual OrientationNot on file documented as of this encounter Plan of Treatment Not on file documented as of this encounter Procedures Procedure NamePriorityDate/TimeAssociated DiagnosisCommentsMRI HEAD/BRAIN WO/W CONTR03/16/2024 5:04 PM EDT documented in this encounter Results * MRI HEAD/BRAIN WO/W CONTR (03/16/2024 5:04 PM EDT)Anatomical RegionLaterality ModalityRadiographic ImagingSpecimen (Source)Anatomical Location / Laterality Collection Method / VolumeCollection TimeReceived Time03/16/2024 5:04 PM EDT Narrative 03/16/2024 5:06 PM EDT [facility] ?[address] ? [place] [address] ? Magnetic Resonance Report ? Signed ? Patient: GUTIÉRREZ,ELVIA A ?MR#: [id number] ?? : 1975 ?Acct:[id number] ?? Age/Sex: 48 / F ?ADM Date: //24 ?? Loc: MRI ? Attending Dr: Minal Petty SENIOR PROCESS ENGINEER ? Ordering Physician: Minal Petty NP ?? Date of Service: 03/16/24 ?? Procedure(s): MR head/brain wo/w con ?? Accession Number(s): [id number] ? cc: Pat Dominique M.D.; Minal Petty NP ? [facility] ? [address] ? [place] [address] ? Patient Name: ?? ELVIA Alexy GUTIÉRREZ ? MRN: [facility]:[id number] ? date: 1975 ?Sex: F ?? Assigned Patient Location: MRI ?? Current Patient Location: MRI ?? Accession/Order Number: [id number] ?? Exam Date: 03/16/2024 ??16:00 ?Report Date: 03/16/2024 ??17:04 ? At the request of: ?? MINAL ??MALINDA ? Procedure: ??MR head/brain wo/w con ? MR head/brain wo/w con, 03/16/2024 4:00 PM EDT ? INDICATION: subsequent imaging, abnormal MRI ? COMPARISON: Prior MRI of the head dated 01/27/2023 and 08/06/2023 ? TECHNIQUE: Multiplanar, multisequential MRI images of brain were obtained ?? without and with injection of contrast. ? FINDINGS: ? The cerebral sulci as well as ventricular system are appropriate for age. ?? Stable mild cerebellar tonsil ectopia is noted. ? There is no restricted diffusion. ? Hyperintensities on T2 and FLAIR images in the kathryn and left frontal and ?? parietal salazar radiata with sparing of U fibers are unchanged. No new lesion. ? No abnormal enhancing lesion. There is no intracranial mass, mass effect, ?? midline shift, intra or extra-axial fluid collection or large hemorrhage. ? Normal flow-void in the intracranial vessels is noted. ? The visualized portions of orbits, mastoid air cells as well as paranasal ?? sinuses are unremarkable. ? MR/MR head/brain wo/w con ?? IMPRESSION: ? No acute intracranial process is noted. No significant interval change in the ?? white matter changes in the kathryn and the salazar radiata of the left frontal ?? and ?? parietal lobes. Statistically these lesions are most likely consistent with ?? microvascular ischemic changes. However, traumatic brain injury, demyelinating ? process or vasculitis are in differential diagnosis. ? Electronically authenticated by: ZANE ??CHECO ?? Date: 03/16/2024 ??17:04 ? Dictated By: ?Zane Padgett M.D. ? Signed By: ?03/16/241705 ? DD/ 1704 ? TD/TT: ? Medical Office Technology Instructor: Procedure Note Radiology, Radiologist, MD - 03/16/2024 [place] [address] Magnetic Resonance Report Signed Patient: ELVIA GUTIÉRREZ AMR#: [id number] : 1975Acct:[id number] Age/Sex: 48 / FADM Date: 03/16/24 Loc: MRI Attending Dr: Minal Petty NP Ordering Physician: Minal Petty NP Date of Service: 03/16/24 Procedure(s): MR head/brain wo/w con Accession Number(s): [id number] cc: Pat Dominique M.D.; Minal Petty NP [facility] [place] [id number] Patient Name: ELVIA GUTIÉRREZ MRN: [id number] date: 1975 Sex: F Assigned Patient Location: MRI Current Patient Location: MRI Accession/Order Number: [id number] Exam Date: 03/16/2024 16:00 Report Date: 03/16/2024 17:04 At the request of: MINAL PETTY Procedure: MR head/brain wo/w con MR head/brain wo/w con, 03/16/2024 4:00 PM EDT INDICATION: subsequent imaging, abnormal MRI COMPARISON: Prior MRI of the head dated 01/27/2023 and 08/06/2023 TECHNIQUE: Multiplanar, multisequential MRI images of brain were obtained without and with injection of contrast. FINDINGS: The cerebral sulci as well as ventricular system are appropriate for age. Stable mild cerebellar tonsil ectopia is noted. There is no restricted diffusion. Hyperintensities on T2 and FLAIR images in the kathryn and left frontal and parietal salazar radiata with sparing of U fibers are unchanged. No newlesion. No abnormal enhancing lesion. There is no intracranial mass, mass effect, midline shift, intra or extra-axial fluid collection or large hemorrhage. Normal flow-void in the intracranial vessels is noted. The visualized portions of orbits, mastoid air cells as well as paranasal sinuses are unremarkable. MR/MR head/brain wo/w con IMPRESSION: No acute intracranial process is noted. No significant interval change inthe white matter changes in the kathryn and the salazar radiata of the leftfrontal and parietal lobes. Statistically these lesions are most likely consistentwith microvascular ischemic changes. However, traumatic brain injury,demyelinating process or vasculitis are in differential diagnosis. Electronically authenticated by: ZANE PADGETT Date: 03/16/2024 17:04 Dictated By: Zane Padgett M.D. Signed By:03/16/241705 DD/ 03 TD/TT: Medical Office Technology Instructor: Authorizing ProviderResult TypeResult StatusAngela Malinda NPIMG XR PROCEDURES Final Result documented in this encounter Visit Diagnoses Not on filedocumented in this encounter Care Teams Team MemberRelationshipSpecialtyStart DateEnd Date Pat Dominique MD PCP - General02/27/24 Minal Petty NP PCP - [employer]/ Nell Aguilar DO [address] [place] [address] Referring MitwiuzctLyrvprhnx76/16/24documented as of this encounter
--- OUTSIDE RECORDS SUMMARY | 2025-08-27 07:46 | XMS_ITS | Patient Health Record ---
Author Organization [facility] [place] Address [address] [place] [address] Care Team Providers Care Remelt Operator Name Role Phone Pat Dominique Primary Care Provider Rudolph Peters Unavailable [phone] Allergies Allergen (clinical drug ingredient) Drug/Non Drug Allergy documented on EMR Reaction Allergy Type Onset Date Status Darvocet-N 100vomitingDrug AllergyActivemeperidineDemerolvomitingDrug Allergy ActiveLevaquinhivesDrug AllergyActiveacetaminophen / oxycodonePercocetvomiting Drug AllergyActive Results Component Value Reference Range Notes XR Chest PA and Lateral (Rou ye CXR) * Reviewed date:01/18/2025 01:36:46 PM Interpretation: Performing Lab: Notes/Report: XR chest 2V Reviewed date:01/23/2025 08:08:00 AM Interpretation: Performing Lab: Notes/Report: Source Facility: [place] [address] [place] [address] XRay Report Signed Patient: ELVIA GUTIÉRREZ MR#: [id number] : 1975 Acct:[id number] Age/Sex: 49 / F ADM Date: 01/18/25 Loc: [facility] Attending Dr: Rudolph Gonsalves D.O. Ordering Physician: Rudolph Gonsalves D.O. Date of Service: 01/18/25 Procedure(s): XR chest 2V Accession Number(s): [id number] cc: Pat Dominique M.D.; Rudolph Gonsalves D.O. [facility] [place] [address] Patient Name: ELVIA GUTIÉRREZ MRN: [id number] date: 1975 Sex: F Assigned Patient Location: [facility] Current Patient Location: [facility] Accession/Order Number: [id number] Exam Date: 01/18/2025 13:05 Report Date: 01/18/2025 13:06 At the request of: RUDOLPH GONSALVES DO Procedure: XR chest 2V Plain film chest 2 view HISTORY: Abnormal pulmonary function study COMPARISON: 08/06/2020 FINDINGS: SUPPORT DEVICES: None POSTSURGICAL CHANGES: None HEART: Within normal limits PULMONARY SIN: Within normal limits MEDIASTINUM: Unremarkable LUNGS AND PLEURA: No acute lung process, pleural effusion or pneumothorax identified. BONY STRUCTURES: Intact ADDITIONAL FINDINGS None XR/XR chest 2V IMPRESSION: No acute process. Impression dictated by: iSna Ruiz M.D.01/18/2025 1:06 PM Dictation Location: [place] [address] Electronically authenticated by: [id number] Y Date: 01/18/2025 13:06 Dictated By: Sina Ruiz D.O. Signed By: 01/18/25 1309 DD/ 1306 TD/TT: [employer] Operator: RT pulmonary function test Reviewed date:01/25/2025 04:34:13 PM Interpretation: Performing Lab: Notes/Report: Source Facility: [place] [address] [place] [address] Respiratory Report Signed Patient: ELVIA GUTIÉRREZ MR#: [id number] : 1975 Acct:[id number] Age/Sex: 49 / F ADM Date: 01/18/25 Loc: RAD Attending Dr: Rudolph Gonsalves D.O. Ordering Physician: Rudolph Gonsalves D.O. Date of Service: 01/18/25 Procedure(s): RT pulmonary function test Accession Number(s): [id number] cc: [facility] Test Date: 2025-01-18 Pat Name: ELVIA GUTIÉRREZ Department: Room: - Gender: Female [employer] Lead: Rodolfo Morales [employer]ATIONSHIP MANAGER : 1975 Requested By: Rudolph Gonsalves Order Number: [id number] Reading MD: Rudolph Gonsalves Interpretive Statements Pulmonary function testing was completed according to ATS criteria. Findings were considered accurate and reproducible. No bronchodilator was administered due to normal spirometric values. Spirometry: -FEV1/FVC: Normal @ 86% -FEV1: Normal @ 124% -FVC: Normal @ 115% Lung volumes by plethysmography: -RV: Normal @ 104% -TLC: High normal @ 119% Diffusion capacity: -DLCO: Mild reduction @ 69% when corrected for Hb 13.5g/dL Impressions: -Normal spirometry and lung volumes with isolated diffusion impairment. This pattern can be seen in, but not restricted to, cardiopulmonary vascular disorders, early interstitial lung disease, and early emphysema. Clinical correlation required. Electronically Signed On 01-25-2025 16:28:29 EDT by Rudolph Gonsalves Dictated By: Rudolph Gonsalves D.O. Signed By: 01/25/25 1628 DD/ 1248 TD/TT: [employer] Operator: HEMOGLOBIN Reviewed date:01/23/2025 07:30:06 AM Interpretation: Performing Lab: Notes/Report: [facility] , Hemoglobin 13.5 12.0-16.0 g/dL Performing Lab:see noteML - [facility] LB Reason For Referral No Information Medications Medication SIG (Take, Route, Frequency, Duration) Notes Start Date End Date Status Metoprolol Tartrate 25 MG 1 tablet with food Ora lly Twice a day ActiveNitroglycerin 0.4 MG1 tablet under the tongue and allow to dissolve as needed. Take every 5 minutes up to 3 times if chest pain persists Sublingual Three times a dayActiveRosuvastatin Calcium 40 MG1 tablet Orally Once a day ActiveAspirin 81 MG1 tablet Orally Once a dayActiveDULoxetine HCl 30 MGTAKE 1 CAPSULE BY MOUTH ONCE DAILY Oral; Duration: 7 DaysActivehydroCHLOROthiazide 25 MG1 tablet in the morning Orally Once a dayActiveIsosorbide Mononitrate ER 120 MG1 tablet in the morning Orally Once a dayActiveMeclizine HCl 12.5 MGTAKE 1 TABLET BY MOUTH EVERY 12 HOURS NEEDED FOR SPINNING SENSATION FOR 30 DAYS Oral; Duration: 30 DaysActivebuPROPion HCl ER (XL) 300 MGTAKE 1 TABLET BY MOUTH ONCE DAILY Oral; Duration: 7 DaysActiveCardizem 120 MGas directed OrallyActive Clopidogrel Bisulfate 75 MG1 tablet Orally Once a dayActive Immunizations Vaccine Route Administration Date Status Comme nts Flu, Flucelvax (43276) 6 mos and older, single-dose syringe (2491-2447) Unknown 08/16/2024 Administered SARS-COV-2 (COVID 19 Moderna - Booster 0.25mL)Yldzizh9608/20/2021dministered Social History Tobacco Use: Social History Observation Description Date Details (start date - stop date) Never Smoker NA - NA Tobacco Control (Standard) Question Answer Notes Tobacco use: Nonsmoker Problems Problem Type SNOMED Code ICD Code Onset Dates Problem Status W/U Status Risk Notes Problem Shortness of breath (140182456) Shortness of breath (R06.02) ActiveconfirmedProblemHyperlipidaemia (95250097)HLD (hyperlipidemia) (E78.5) Activeconfirmed Vital Signs Heart Rate 66 /min 01/23/2025 Ksekzvsfyna96.0 degrees Aomivlknnc47/01/2025Respiratory Rate18 /min01/23/2025 Fldlsrct66 %01/23/2025lood pressure thtflsbaf23 mm Hg01/23/20256250Sjghah37 in 01/23/2025lood pressure ycgemfpi930 mm Hg01/23/20256088Fukiqj650.6 lbs01/23/2025MI 35.04 kg/m201/23/2025 Procedures Procedure Date Ordered Date Performed Result Body Sit e PFT (22182, 72309, 82893) 12/27/2024 01/18/2025 N/A Encounters Encounter Location Date Provider Diagnosis [facility] [address] [place] [address] 12/27/2024 Rudolph Gonsalves Abnormal results of pulmonary function studies R94.2 and Patent foramen ovale Q21.12 [facility] [address] [place] [address] 01/23/2025 Rudolph Gonsalves Abnormal results of pulmonary function studies R94.2 and Patent foramen ovale Q21.12 Assessments Encounter Date Diagnosis (ICD Code) Assessment Notes Treatment Notes Treatment Clinical Notes Section Notes 12/27/2024 Abnormal results of pulmonary fu nction studies (ICD-10 - R94.2) Abnormally mild decrease in DLCO @ 72% on 04/14/2023. Discussed with patient the more common causes of an isolated diffusion impairment include emphysema, interstitial lung disease, and cardiopulmonary vascular disease. A PFO with bqwvg-km-itsk shunt could cause a decreased DLCO. No history of smoking, asthma, or COPD. No evidence for ILD. Recommended repeating PFT for comparison to determine stability vs. worsening of DLCO. Additionally, recommended getting CXR to assess for any pulmonary disease. If her DLCO is worsening, and/or developing restriction (decreased TLC), or if CXR is abnormal, a HRCT would be indicated. I recommended that the patient wait several weeks to get testing done in order to recover from her bronchitis. 12/27/2024Patent foramen ovale (ICD-10 - Q21.12) F/U with cardiology. 01/23/2025bnormal results of pulmonary function studies (ICD-10 - R94.2) Continues to have a mild diffusion impairment on PFT 01/18/2025 (DLCO 69%), relatively unchanged compared to 04/14/2023 (DLCO 72%). Spirometry and plethysmography remain normal. Most likely this is secondary to her underlying cardiac status (e.g. patent forament ovale). She admits to having dyspnea at times with exertion, but it is not always reproducible. It is heightened in times of stress. It is relieved by simply resting over ~5 minutes. Discussed options with patient: -Just monitor for now -Repeat PFT in 1 year -Order HRCT -Rx albuterol to use PRN - however, by the time she uses it, the symptoms typically will have subsided prior to when albuterol would take effect (~5 minutes and ~15 minutes respectively). She can also use it prior to activities which she knows will cause dyspnea, but again, LANDEROS is random and she cannot accurately predict when to use it. -Start a daily maintenance inhaler For now, patient stated she will just monitor her symptoms. If she begins to worsen, she can contact the office for further advice or w/up. Otherwise, F/U PRN. 01/23/2025Patent foramen ovale (ICD-10 - Q21.12) F/U with cardiology. Plan Of Treatment No Information Insurance Providers Payer Name Payer Address Payer Phone Subscriber Number Group Number Insured Name Patient Relationship to Insured Coverage Start Date Coverage End Date [employer] PPO PLUS LOCAL PLAN [address] [place] [phone] [id number] Kwasi Gutiérrez - patient is the insured Medical (General) History Medical History History ICD Code PFO (patent foramen ovale) Q21.12 Abnormal diffusion capacity determined b y pulmonary function test R94.2 HLD (hyperlipidemia) E78.5 Surgical History Surgery Date(Month/Year) hysterectomy tubal ligationright knee arthroscopyrhinoplasty
--- OUTSIDE RECORDS SUMMARY | 2025-08-27 08:05 | XMS_ITS | CCD ---
Author Organization [facility] [place] [facility] Care Team Providers Care Product Inspection Supervisor Name Role Phone ALESSANDRO LIN Admitting Unavailable ALESSANDRO LIN Attending Unavailable PAT HUSTON Referring Unavailable PAT HUSTON Primary Care Unavailable Pat Huston Unavailable DR PAT HUSTON Admitting Unavailable HUSTON, DR PAT Kumari Attending Unavailable HUSTON, DR PAT Kumari Primary Care Unavailable HOUSTON, DR NILESH Foy Consulting Unavailable HUSTON, DR APT Kumari Consulting Unavailable HUSTON, DR PAT Kumari [...] DR BROOKS Attending Unavailable HUSTON, DR PAT Kumair Primary Care Unavailable ELTAHAWY, DR BROOKS Consulting Unavailable ZIEBER, DR EDILSON Basilio Consulting Unavailable MD Pat Huston Primary Care Provider MD Pat Huston Attending Provider [phone] Pat Huston Admitting Unavailable Pat Huston Primary Care Unavailable Huston, Pat E Attending Unavailable Kevon Samuel Admitting Unavailab Kevon Morejon Attending Unavailab Pat Mcgovern Primary Care Unavailable Pat Huston MD Primary Care Provider [phone] Jl Aguilar DO Unavailable HARLAN NIÑO Attending Unavailable HARLAN NIÑO Attending Unavailable Pat Huston MD Primary Care Provider Harlan Niño APRN Attending Provider VIDHI ANDERSON Attending Unavailable Pat Huston MD Primary Care Provider Harlan Niño NP Unavailable Jl Aguilar DO Unavailable Allergies Allergy ClassificationReported Allergen(s)Allergy TypeDate of OnsetReaction(s) Facility (2 sources)Acetaminophen / oxyCODONEDrug Thbklbf70-43-6033Rpj [facility] Repository (8 sources)levoFLOXacinDrug Bafvjed94-15-7089fqyqwVpyLancaster Municipal Hospital Repository (2 sources)MeperidineDrug Lgzpprv48-20-5152Osy [facility] Repository (2 sources)Darvocet-N 100Drug allergy (disorder)87-07-2061Rhh [facility] Repository (6 sources)Acetaminophen / oxyCODONEDrug AllergyUnkStudyBluegeneral [facility] Z[facility]R Other (6 sources)Acetaminophen / PropoxypheneDrug AllergyUnkSaint John's Health System ZAPR Other (10 sources)Meperidine; Translations: [MEPERIDINE]Drug Ezvhwxu68-43-7884LydnzrgAvita Health System [facility] (8 sources)SimvastatinDrug Ckgrdil34-47-1106YrdyqhtGood [facility]aritan Hospital (1 source)Tylenol-Codeine #3Drug allergy (disorder)[facility] Repository (5 sources)Allergies ReconciledPropensity to adverse reactionsLafayette Regional Health Center ZAPR Other (5 sources)patient allergy list reviewed by nurse or physiciaPropensity to adverse xgaedqtbt98-13-1816Tikyyif:DoneNort [facility]AP[facility] Other (5 sources)Darvocet A500 *ANALGESICS - OPIOID*Propensity to adverse reactions 74-63-6360NjlsfanTnbcs [facility] Other (2 sources)Acetaminophen; Translations: [acetaminophen]Drug Lnnukdw42-15-1267 [facility] (5 sources)levoFLOXacin; Translations: [levofloxacin]Drug Yixbdqg12-31-6541IswfeHocking Valley Community Hospital (4 sources)oxyCODONE; Translations: [oxycodone]Drug Lvlkcqr29-17-9939DywmjsacAshtabula County Medical Center (4 sources)Propoxyphene; Translations: [propoxyphene]Drug Kqjrheo68-06-9327 [facility] (1 source)MeperidineDrug Tpbyamt48-83-1035HxdissptyMercy [facility] Repository (2 sources)Darvocet A500 *ANALGESICS - OPAllergy to tulkvzfvq13-13-9276YujsgHocking Valley Community HospitalComment on above:Free Text Allergy: Darvocet A500 *ANALGESICS - OPIOID*; Onset Date: 10/27/2016 (5 sources)Acetaminophen / oxyCODONE; Translations: [OXYCODONE-ACETAMINOPHEN] Drug Ebvltpm28-68-3638JH intoleranceMetropolitan Saint Louis Psychiatric Center (4 sources)MeperidineDrug Mffmfix98-15-0968FEWilmington Hospital (1 source)PROPOXYPHENE N-ACETAMINOPHEN; Translations: [PROPOXYPHENE N-ACETAMINOPHEN]Propensity to adverse reactions to drug (disorder)12-15-[address] [facility] Repository Medications Current Medications MedicationDrug Class(es)DatesSig (Normalized)Sig (Original)aspirin 81 mg oral tablet (1 source)Platelet Aggregation Inhibitor, Nonsteroidal Anti-inflammatory Drug Start: 29-60-2718abmn 1 tablet by mouth once dailyAspirin 81 mg tablet Active 81 MG PO Daily May 24, 2025 12:00am Complies with drug xiyzywe61 hr buPROPion hydrochloride 300 mg extended release oral tablet (20 sources)AminoketoneStart: 57-03-3386scjh 1 tablet by mouth once daily in the morningBupropion Hcl (Wellbutrin Xl) 300 mg tablet extended release 24 hr Active 300 MG PO Every morning May 24, 2025 12:00am Complies with drug therapyStart: 08-23-2024 End: 15-51-2621uyjf 1 tablet by mouth twice dailyBupropion Hcl 100 mg tablet Discontinued 100 MG PO Twice daily August 23, 2024 12:00am May 24, 2025 4:19pmStart: 41-38-8743skSFRVjua HCl 100MG BuPROPion HCl( 100MG Oral 2 times daily ) Active -Hx Entry Oral 2 times daily for 0 *Pick strength-form from CIQUAL for eRX* Jun, Activeclopidogrel 75 mg oral tablet (4 sources)P2Y12 Platelet InhibitorStart: 39-32-4891cxoz 1 tablet by mouth once dailyClopidogrel (Plavix) 75 mg tablet Active 75 MG PO Daily May 24, 2025 12:00am Complies with drug therapyStart: 12-01-2023 End: 84-25-5466dydw 1 tablet by mouth once dailyclopidogrel (Plavix) 75 MG tablet Take 75 mg by mouth Daily 12/01/2023 11/30/2024 Gcatok93 hr dilTIAZem hydrochloride 240 mg extended release oral capsule (20 sources)Calcium Channel BlockerStart: 62-15-0685uuoy 1 mg by mouth every twenty-four hoursDiltiazem Hcl (Cartia Xt) 240 mg capsule,extended release 24hr Active MG PO May 24, 2025 12:00amComplies with drug therapyStart: 08-23-2024 End: 11-45-0762apxv 1 capsule by mouth once daily, then take 1 capsule by mouth every twenty-four hoursDiltiazem Hcl (Cardizem Cd) 240 mg capsule,extended release 24hr Discontinued 240 MG PO Daily August 23, 2024 12:00am August 23, 2024 11:19amStart: 08-23-2024 End: 05-95-1918oiit 2 tablets by mouth once dailyDiltiazem Hcl 120 mg tablet Discontinued 120 MG PO Daily August 23, 2024 11:19am May 2454:19pm FreeTextSi tablets Orally daily; Note: Source Status: Takingtotal of 240 mg; Provider: Trip Stewart ( )Start: 08-23-2024 End: 73-35-1122vnvv 2 tablets by mouth once dailyDiltiazem Hcl Discontinued 2 TAB PO Daily August 23, 2024 12:00am August 23, 2024 11:20am FreeTextSi tablets Orally daily; Note: Source Status: Takingtotal of 240 mg; Provider: Trip Stewart ( )Start: 12-01-2023 End: 88-34-8274qrfm 1 capsule by mouth in the morning, then take 1 capsule by mouth every twenty-four hoursdilTIAZem CD (Cardizem CD) 120 MG 24 hr capsule Take 120 mg by mouth in the morning. 12/01/2023 ActiveStart: 37-62-7326migq 240 mg by mouth once dailyCardizem CD 240MG Cardizem CD( 240MG Oral daily ) Active - Hx Entry Oral daily for 0 *Pick strength-form from CIQUAL for eRX* Jun, Activetake 2 tablets by mouth every twenty-four hoursCardizem 120 MG 2 tablets Orally daily total of 240 mg ActiveDULoxetine 30 mg delayed release oral capsule (20 sources)Serotonin and Norepinephrine Reuptake InhibitorStart: 08-23-2024 End: 88-75-0921lpiz 1 capsule by mouth once dailyDuloxetine (Cymbalta) 30 mg capsule,delayed release(DR/EC) Active 30 MG PO Daily August 232:00am Complies with drug therapyhydroCHLOROthiazide 25 mg oral tablet (5 sources)Thiazide DiureticStart: 12-01-2023 End: 74-32-6441qikh 1 tablet by mouth once dailyHydrochlorothiazide 25 mg tablet Active 25 MG PO Daily May 24, 2025 12:00am Complies with drug therapy metoprolol tartrate 25 mg oral tablet (5 sources)beta-Adrenergic BlockerStart: 12-01-2023 End: 43-08-9316kkoy 1 tablet by mouth once dailyMetoprolol Tartrate 25 mg tablet Active 25 MG PO Daily May 24, 2025 12:00am Complies with drug therapy nitroglycerin 0.4 mg sublingual tablet (5 sources)Nitrate VasodilatorStart: 08-82-8462msnf 1 tablet under the tongue onceNitroglycerin 0.4 mg tablet, sublingual Active 0.4 MG SUBLINGUAL Once May 24, 2025 12:00am Complies with drug therapynitroglycerin (Nitrostat) 0.[address] 0.4 mg under the tongue every 5 (five) minutes if needed for chest pain Activerosuvastatin calcium 40 mg oral tablet (5 sources)HMG-CoA Reductase InhibitorStart: 12-01-2023 End: 44-15-7533fbze 1 tablet by mouth once dailyRosuvastatin 40 mg tablet Active 40 MG PO Daily May 24, 2025 12:00am Complies with drug therapy Completed/Discontinued Medications MedicationDrug Class(es)DatesSig (Normalized)Sig (Original)citalopram 20 mg oral tablet (7 sources)Serotonin Reuptake InhibitorStart: 08-23-2024 End: 37-23-7000Gdpzkogzqy 20 mg tablet Discontinued MG PO August 23, 2024 12:00am May 24, 2025 4:19pm FreeTextSig: Citalopram Hydrobromide( 20MG Oral 2 times daily ) Active -Hx Entry Oral 2 times daily; Note:Source Status: Taking*Pick strength-form from CIQUAL for eRX*; Provider: Trip Stewart ( )Start: 56-49-7246Idppidyscq Hydrobromide 20MG Citalopram Hydrobromide( 20MG Oral 2 times daily ) Active -Hx Entry Oral 2 times daily for 0 *Pick strength-form from Kamidaan for eRX* Jun, Husfqq27 hr isosorbide mononitrate 60 mg extended release oral tablet (19 sources)Nitrate VasodilatorStart: 08-23-2024 End: 75-09-9093mbnq 1 tablet by mouth once daily in the morningIsosorbide Mononitrate 60 mg tablet extended release 24 hr Discontinued 1 TAB PO Daily August 23, 2024 12:00am August 23, 2024 11:20am FreeTextSi tablet in the morning Orally Once a day; Note: Source Status: Rgpwln871 mg; Provider: Trip Stewart ( )Start: 12-01-2023 End: 12-19-1952agyo 1 tablet by mouth in the morning, then take 1 tablet by mouth every twenty-four hoursisosorbide mononitrate ER (Imdur) 120 MG 24 hr tablet Take 120 mg by mouth in the morning. 12/01/2023 ActiveStart: 06-26-2022 Imdur 120MG Imdur( 120MG Oral ) Active -Hx Entry Oral for 0 *Reorder from CIQUAL for eRx and Interaction Alerts* Jun, Activetake 1 tablet by mouth once daily in the morningImdur 60 MG 1 tablet in the morning Orally Once a day 120 mg Active Problems Active Problems Problem ClassificationProblemDateDocumented DateEpisodic/ChronicAnxiety disorders (6 sources)Generalized anxiety disorder; Translations: [Generalized anxiety disorder]ChronicConduction disorders (5 sources)Pre-excitation syndrome; 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]Onset: 94-81-9807NlrgufqBmhtfmmmv of lipid metabolism (9 sources)Hyperlipidemia, unspecified; Translations: [Hyperlipidemia]Onset: 90-31-3639HaktbxjRsuyy of unknown origin (5 sources)Fever, unspecified; Translations: [Fever]EpisodicHeadache; including migraine (6 sources)Tension-type headache; Translations: [Tension-type headache, unspecified, not intractable]Onset: 748680-61-5786FhdqgqtSdwlzabhx disorders (10 sources)Excessive and frequent menstruation with regular cycle; Translations: [Intermenstrual bleeding - irregular] Resolved: 81-95-9210IzicrsyEcfcjuokqwcee mental health disorders (6 sources)Primary insomnia; Translations: [Primary insomnia]Onset: 02-28-2024 96-75-0080QtwuopoNyic disorders (6 sources)Moderate recurrent major depression; Translations: [Major depressive disorder, recurrent, moderate]ChronicNonspecific chest pain (18 sources)Non-cardiac chest pain; Translations: [Other chest pain]Onset: 03-71-5046FyhgsrplHkca wounds of head; neck; and trunk (5 [...] than malignant neoplasm]EpisodicOther and ill-defined cerebrovascular disease (4 sources)Cerebrovascular disease; Translations: [Cerebrovascular disease, unspecified]Onset: 101846-27-5987TtbszvzQmwev connective tissue disease (1 source)Pain in right hand; Translations: [Pain in right hand]EpisodicOther connective tissue disease (4 sources)Pain in right hand; Translations: [Pain in right hand]EpisodicOther eye disorders (5 sources)Dilated pupil; 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]ChronicOther eye disorders (6 sources)Anisocoria; 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]Onset: 224242-92-6737 ChronicOther lower respiratory disease (2 sources)Shortness of breath; Translations: [Shortness of breath]Onset: 49-72-6666DowukgeeFvgbk non-traumatic joint disorders (1 source)Pain in left hip; Translations: [Pain in left hip]EpisodicOther non- traumatic joint disorders (4 sources)Arthralgia of the pelvic region and thigh; Translations: [Pain in left hip]EpisodicOther non-traumatic joint disorders (2 sources)Hip pain; Translations: [Pain in right hip]71-92-2811JjwbdjlfTshqh non-traumatic joint disorders (1 source)Pain in right hip; Translations: [Pain in joint, pelvic region and thigh]11-94-3232EabyibotBixnk nutritional; endocrine; and metabolic disorders (1 source)Body mass index (BMI) 36.0-36.9, adult; Translations: [Body mass index (BMI) 36.0-36.9, adult]ChronicOther nutritional; endocrine; and metabolic disorders (5 sources)Obese class I; Translations: [Body mass index 32.0-32.9, adult]Onset: 04-58-8452RtlhvasGkmkb nutritional; endocrine; and metabolic disorders (4 sources)Obese class II; Translations: [Body mass index (BMI) 36.0-36.9, adult]ChronicOther screening for suspected conditions (not mental disorders or infectious disease) (10 sources)Abnormal findings on diagnostic imaging of other specified body structures; Translations: [MRI scanabnormal]Onset: 27-82-3614HomnicmRhupw screening for suspected conditions (not mental disorders or infectious disease) (20 sources)Encounter for screening mammogram for malignant neoplasm of breast; Translations: [Urine test negative]Onset: 97-86-0625NitsxoucJdxzp skin disorders (5 sources)Acne vulgaris; Translations: [Acne [...] pain; Translations: [Pelvic and perineal pain] Resolved: 16-71-3075XxpzsomxVpmxwahz reactions (5 sources)Unspecified contact dermatitis due to other agents; Translations: [Contact dermatitis]Onset: 21-56-9314VpsssrjpXjypegnwod associated with dizziness or vertigo (6 sources)Vertigo; Translations: [Dizziness and giddiness]Onset: 02-28-2024 32-83-0674EcadjwqtVtfuoqmf; including migraine (4 sources)Tension-type headache; Translations: [Tension-type headache, unspecified, intractable]Onset: 791810-56-5403RfgnbbpoPwrvwpo and fatigue (1 source)Other fatigue; Translations: [OTHER FATIGUE]Onset: 61-49-4782Yxuqwiyu Mycoses (5 sources)Candidiasis, unspecified; Translations: [Candidiasis]Onset: 97-70-1803UrlioboiGoxre circulatory disease (4 sources)Other specified symptoms and signs involving the circulatory and respiratory systems; Translations:[OTH SPEC SX SIGNS INVLV CIRC RS]Onset: 29-11-1672JreglmxeRytdb complications of (1 source)Supervision of high risk , unspecified, unspecified trimester; Translations: [Supervision of high risk , unspecified, unspecified trimester]Onset: 11-14-0180NocujqqrYoszp complications of (4 sources)High risk ; Translations: [Supervision of high risk , unspecified, unspecified trimester]Onset: 31-24-3563XjzinzevSnpci eye disorders (4 sources)Fundoscopy abnormal; Translations: [Unspecified disorder of eye and adnexa]Onset: 692089-99-0110DasbrdcxBjwmp liver diseases (4 sources)Elevated levels of transaminase & lactic acid dehydrogenase; Translations: [Nonspecific elevation of levels of transaminase or lactic acid dehydrogenase (LDH)]Onset: 47-62-0177KtlurxsrIolnj nervous system disorders (6 sources)Tremor; Translations: [Tremor, unspecified]Onset: 02-28-2024 46-74-9976PivlpnhqUxqam non-traumatic joint disorders (5 sources)Shoulder joint pain; Translations: [Pain in right shoulder]Onset: 37-17-6880NlnoqpufGnmmc and delivery including normal (1 source)Encounter for routine follow-up; Translations: [Encounter for routine follow-up]Onset: 09-33-7662EagvykmrLtjdeoxnp; thrombophlebitis and thromboembolism (5 sources)Embolism from thrombosis of vein of distal lower extremity; Translations: [Acute venous embolism and thrombosis of unspecified deep vessels of lower extremity]Onset: 74-81-5867LjnjlwchVtclzjbmnxw; intervertebral disc disorders; other back problems (5 sources)Cervical disc disorder with radiculopathy; Translations: [Cervical disc disorder with radiculopathy, cervicothoracic region]Onset: 06-20-2018 EpisodicThyroid disorders (5 sources)Disorder of thyroid, unspecified; Translations: [Disorder of thyroid gland]Onset: 01-22-1247BdemromeYpvprixsmbqe (5 sources)Surveillance of intrauterine device contraception done; Translations: [Surveillance of previously prescribed intrauterine contraceptive device]Onset: 66-40-8193Swnprtucdtom (5 sources)Encounter for insertion or removal of intrauterine contraceptive device; Translations: [Encounter for insertion or removal of intrauterine contraceptive device]Onset: 09-05-2009 Results Test NameValueInterpretationReference SivtzLnqiraso62qg 59-82-747707Opwniqtjp stress test result from 05/28/2025: Vidhi Anderson MD to Me (Selected Message) 06/05/25 7:55 AM Please reassure her stress test is normal Thanks Patient made aware.[facility] CenterOrders Onlyon 67-11-6584Tstrrl [id number] Elvia Fox 1975 F Date Provider Department Center 06/04/2025 [id number], HISTORICAL [facility] Family History Problem Relation Age of Onset Supraventricular tachycardia Mother Heart disease Father Supraventricular tachycardia Sister Heart disease Paternal Grandmother Heart disease Paternal Grandfather Family Status - Relation Status Age at Mother Father Sister Paternal Grandmother Paternal GrandfatherNormalMercy Health St. Vincent Medical CenterOffice Visiton 83-52-7662Htjmsa-up [id number] Elvia Fox 1975 F Date Provider Department Center 05/03/2025 271-VIDHI ANDERSON BEATA [place] Family History Problem Relation Age of Onset Supraventricular tachycardia Mother Heart disease Father Supraventricular tachycardia Sister Heart disease Paternal Grandmother Heart disease Paternal Grandfather Family Status - Relation Status Age at Mother Father Sister Paternal Grandmother Paternal Grandfather Level of Service:17420 [place] OFFICE/OUTPATIENT ESTABLISHED MOD MDM 30 MINNoZanesville City Hospital36on 21-01-246689Xbrqabz made aware.Normal [facility]36on 66-90-126216Gfsaunb stopped by the office today. Says she was out of hydrochlorothiazide for 2 days and gained 8#. She did lose those 8# once she restarted it. She wants to know if this is normal and she wonders how much water weight is really on her. Any advice? Thanks.[facility] CenterMRI HEAD/BRAIN WO/W CONTRon 26-06-6085[address] [address] Magnetic Resonance Report Signed Patient: ELVIA FOX MR#: [id number] : 1975 Acct:[id number] Age/Sex: 48 / F ADM Date: 03/16/24 Loc: MRI Attending Dr: Harlan Niño MARINE MACHINIST Ordering Physician: Harlan Niño NP Date of Service: 03/16/24 Procedure(s): MR head/brain wo/w con Accession Number(s): [id number] cc: Pat Huston M.D.; Harlan Niño NP [address] [address] Patient Name: ELVIA FOX MRN: [facility]:[id number] date: 1975 Sex: F Assigned Patient Location: MRI Current Patient Location: MRI Accession/Order Number: [id number] Exam Date: 03/16/2024 16:00 Report Date: 03/16/2024 17:04 At the request of: HARLAN NIÑO Procedure: MR head/brain wo/w con MR head/brain [...] U fibers are unchanged. No new lesion. No abnormal enhancing lesion. There is no intracranial mass, mass effect, midline shift, intra or extra-axial fluid collection or large hemorrhage. Normal flow-void in the intracranial vessels is noted. The visualized portions of orbits, mastoid air cells as well as paranasal sinuses are unremarkable. MR/MR head/brain wo/w con IMPRESSION: No acute intracranial process is noted. No significant interval change in the white matter changes in the kathryn and the salazar radiata of the left frontal and parietal lobes. Statistically these lesions are most likely consistent with microvascular ischemic changes. However, traumatic brain injury, demyelinating process or vasculitis are in differential diagnosis. Electronically authenticated by: ZANE KESSLER Date: 03/16/2024 17:04 Dictated By: Zane Kessler M.D. Signed By: 03/16/241705 DD/ 03 TD/TT: Aerial Lineman:TBHRadiology, Radiologist, - 03/16/2024 [place] [address] Magnetic Resonance Report Signed Patient: ELVIA FOX MR#: [id number] : 1975 Acct:[id number] Age/Sex: 48 / F ADM Date: 03/16/24 Loc: MRI Attending Dr: Harlan Niño NP Ordering Physician: Harlan Niño NP Date of Service: 03/16/24 Procedure(s): MR head/brain wo/w con Accession Number(s): [id number] cc: Pat Huston M.D.; Harlan Niño NP [facility] [place] [address] Patient Name: ELVIA FOX MRN: [facility]:[id number] date: 1975 Sex: F Assigned Patient Location: MRI Current Patient Location: MRI Accession/Order Number: [id number] Exam Date: 03/16/2024 16:00 Report Date: 03/16/2024 17:04 At the request of: HARLAN NIÑO Procedure: MR head/brain wo/w con MR head/brain [...] U fibers are unchanged. No new lesion. No abnormal enhancing lesion. There is no intracranial mass, mass effect, midline shift, intra or extra-axial fluid collection or large hemorrhage. Normal flow-void in the intracranial vessels is noted. The visualized portions of orbits, mastoid air cells as well as paranasal sinuses are unremarkable. MR/MR head/brain wo/w con IMPRESSION: No acute intracranial process is noted. No significant interval change in the white matter changes in the kathyrn and the salazar radiata of the left frontal and parietal lobes. Statistically these lesions are most likely consistent with microvascular ischemic changes. However, traumatic brain injury, demyelinating process or vasculitis are in differential diagnosis. Electronically authenticated by: ZANE KESSLER Date: 03/16/2024 17:04 Dictated By: Zane Kessler M.D. Signed By: 03/16/241705 DD/ 03 TD/TT: Aerial Lineman: [facility] CenterRadiology Study observation (narrative)[facility] CenterMRI HEAD/BRAIN WO/W CONTROrdered By: Radiologist Radiology on 01-35-5668[employer] Work Phone: MR breast BI wo/w con CADon 84-81-2095SN breast BI wo/w con [facility] [employer] [address] [place] [address] MRI Report Signed Patient: Elvia Fox MR#: [id number] : 1975 Acct:[id number] Age/Sex: 48 / F ADM Date: 09/07/23 Loc: MR Room: Type: [facility] Attending Dr: Pat Huston MD Copies to: [...] All imaged data was reviewed using the [employer] system. The postcontrast images were subtracted and [...] Waite Jr., D.OLinda09/07/2023 11:47 AM Dictation Location: [place] [address] Transcribed By: [facility] 09/07/23 1147 Dictated By: Bunny Waite Jr, DO 09/07/23 1138 Signed By: 09/07/23 1147[facility] HospitalMRI BRAIN WO W CONon 58-71-7703KAP BRAIN WO W CONEXAMINATION: MRI BRAIN WO [...] Electronically authenticated by: EDILSON JOHN Date: 2023-02-16 10:[address] [place], [place] [address]LIPID PROFILEon 30-39-7756ZUHJ-HDL RATIO NORMSEE [facility] Health SystemComment on above:Result Comment: 3.3 - 4.4 LOW RISK 4.4 - 7.1 AVERAGE RISK 7.1 - 11.0 MODERATE RISK >11.0 HIGH RISKPerformed By: #### CMP, TSH, LIPID #### [facility] [address] [place] [address] Dr. David ZapataCholesterol [Mass/Vol]120 mg/dLNormal<=200[facility] Comment on above:Performed By: #### CMP, TSH, LIPID #### [facility] [address] [place] [address] Dr. David ZapataCholesterol in HDL [Mass/Vol]54 mg/yICgdjkc91-48PvxFirelands Regional Medical CenterComment on above:Performed By: #### CMP, TSH, LIPID #### [facility] [address] [place] [address] Dr. David ZapataCholesterol in LDL [Mass/Vol]45.6 mg/dLKettering Health DaytonComment on above:Performed By: #### CMP, TSH, LIPID #### [facility] [address] [place] [address] Dr. David Mayers.total/Cholesterol in HDL [Mass ratio]2.2 {ratio} NormalFirelands Regional Medical CenterComment on above:Performed By: #### CMP, TSH, LIPID #### [facility] [address] [place] [address] Dr. David Garcia NORMAL> or = 60 mg/dl - LOW CARDIOVASCULAR RISK <40 mg/dl - HIGH CARDIOVASCULAR RISKKettering Health DaytonComment on above:Performed By: #### CMP, TSH, LIPID #### [facility] [address] [place] [address] Dr. David Bardales CALC NORMALSEE [facility]ita Health SystemComment on above:Result Comment: <100 mg/dl OPTIMAL 100 - 129 mg/dl NEAR OR ABOVE OPTIMAL 130 - 159 mg/dl BORDERLINE HIGH 160 - 189 mg/dl HIGH >190 mg/dl VERY HIGH Performed By: #### CMP, TSH, LIPID #### [facility] [address] [address] [address] David ZapataTriglyceride [Mass/Vol]102 mg/dLNormal<=150The [facility] Comment on above:Performed By: #### CMP, TSH, LIPID #### [facility] [address] [place] [address] Dr. David ZapataVLDL CALC20.4 mg/dLNormalThe [facility] HospitalComment on above: Performed By: #### CMP, TSH, LIPID #### [facility] [address] [place] [address] Dr. David Cheatham PROFILEon [id number] [Mass/Vol]3.4 g/dLNormal3.4-5.0 The [facility] HospitalComment on above:Performed By: #### CMP, TSH, LIPID #### [facility] [address] [place] [address] Dr. David ZapataAlbumin/Globulin [Mass ratio]1.0 {ratio}NormalThe [facility] HospitalComment on above:Performed By: #### CMP, TSH, LIPID #### [facility] [address] [place] [address] Dr. David Crockett [Catalytic activity/Vol]51 U/WWwgcxr90-696Fzy [facility] HospitalComment on above:Performed By: #### CMP, TSH, LIPID #### [facility] [address] [place] [address] Dr. David Szymanski [Catalytic activity/Vol]32 U/PWthpnt27-70Fbd [facility] on above:Performed By: #### CMP, TSH, LIPID #### [facility] [address] [place] [address] Dr. David Gamino [Catalytic activity/Vol]18 U/MOfstru90-87Raq [facility] on above:Performed By: #### CMP, TSH, LIPID #### [facility] [address] [place] [address] Dr. David Xie, CONJUGATED0.1 mg/dLNormal0.0-0.2[facility] Comment on above:Performed By: #### CMP, TSH, LIPID #### [facility] [address] [place] [address] Dr. David Mcknightirubin [Mass/Vol]0.4 mg/dLNormal0.2-1.0[facility] Comment on above:Performed By: #### CMP, TSH, LIPID #### [facility] [address] [place] [address] Dr. David ZapataGlobulin (S) [Mass/Vol]3.5 g/dLNormalThe [facility] HospitalComment on above:Performed By: #### CMP, TSH, LIPID #### [facility] [address] [place] [address] Dr. David ZapataProtein [Mass/Vol]6.9 g/dLNormal6.4-8.2[facility] Comment on above:Performed By: #### CMP, TSH, LIPID #### [facility] [address] [place] [address] Dr. David Kellogg AUTO DIFFon [id number] #0.0 103/ulNormal0.0-0.1[facility] CenterComment on above:Performed By: #### CBC #### [facility] [address] [place] [address] Dr. David ZapaatBasophils/100 WBC (Bld)0.4 %Normal0.2-2.0[facility] Comment on above:Performed By: #### CBC #### [facility] [address] [place] [address] Dr. David Henry #0.3 103/ulNormal0.0-0.7The [facility] HospitalComment on above: Performed By: #### CBC #### [facility] [address] [place] [address] Dr. David Chavisosinophils/100 WBC (Bld)3.4 %Normal0.9-7.0[facility] Comment on above:Performed By: #### CBC #### [facility] [address] [place] [address] Dr. David Chavisrythrocyte distribution width (RBC) [Ratio]12.0 %Kefyvu40.0-15.0 The [facility] on above:Performed By: #### CBC #### [facility] [address] [place] [address] Dr. David ZapataHematocrit (Bld) [Volume fraction]44.2 %Cwakyw58.0-48.0The [facility] HospitalComment on above:Performed By: #### CBC #### [facility] [address] [place] [address] Dr. David ZapataHemoglobin (Bld) [Mass/Vol]14.0 g/nTNlmscu11.0-16.0The [facility] HospitalComment on above:Performed By: #### CBC #### [facility] [address] [place] [address] Dr. David Rubio #0.04 10e3/ulCritically high0.00-0.03The [facility] Comment on above:Performed By: #### CBC #### [facility] [address] [place] [address] Dr. David Rubio %0.5 %Normal0.0-0.5The [facility] on above: Performed By: #### CBC #### [facility] [address] [place] [address] Dr. David RiddleH #2.3 103/ulNormal1.2-3.8The [facility] on above:Performed By: #### CBC #### [facility] [address] [place] [address] Dr. David Mcnealmphocytes/100 WBC (Bld)28.7 %Pmouib57.5-60.0The [facility] on above:Performed By: #### CBC #### [facility] [address] [place] [address] Dr. David HanksUAL DIFF REQNONormalThe [facility] HospitalComment on above: Performed By: #### CBC #### [facility] [address] [address] [address] David León (RBC) [Entitic mass]29.2 xfFanivk34.7-34.0The [facility] HospitalComment on above:Performed By: #### CBC #### [facility] [address] [place] [address] Dr. David León (RBC) [Mass/Vol]31.7 g/gDItqums92.9-35.2The [facility] HospitalComment on above:Performed By: #### CBC #### [facility] [address] [place] [address] Dr. David León (RBC) [Entitic vol]92.1 vZUslvdi81.0-99.0The [facility] HospitalComment on above:Performed By: #### CBC #### [facility] [address] [place] [address] Dr. David Arellano #0.6 103/ulNormal0.3-0.8The [facility] HospitalComment on above:Performed By: #### CBC #### [facility] [address] [place] [address] Dr. David Sureshocytes/100 WBC (Bld)7.3 %Normal1.7-12.0The [facility] on above:Performed By: #### CBC #### [facility] [address] [place] [address] Dr. David ArredondoUT #4.8 103/ulNormal1.4-6.5The [facility] HospitalComment on above:Performed By: #### CBC #### [facility] [address] [place] [address] Dr. David Arredondoutrophils/100 WBC (Bld)59.7 %Dgfcpk70.0-75.0The [facility] HospitalComment on above:Performed By: #### CBC #### [facility] [address] [place] [address] Dr. David Maldonadolet mean volume (Bld) [Entitic vol]9.4 fLCritically low 9.5-13.5The [facility] on above:Performed By: #### CBC #### [facility] [address] [address] [address] David ZapataPLT308 103/yeGleght136-785Pge [facility] on above: Performed By: #### CBC #### [facility] [address] [place] [address] Dr. David ZapataRBC4.80 106/ulNormal4.20-5.40The [facility] on above:Performed By: #### CBC #### [facility] [address] [place] [address] Dr. David ZapataWBC8.0 103/ulNormal4.0-11.0The [facility] on above: Performed By: #### CBC #### [facility] [address] [place] [address] Dr. David ZapataLIPID PROFILEon [id number]-HDL RATIO NORMSSalem City HospitalCommary [facility] bed rehabilitation hospital on above:Result Comment: 3.3 - 4.4 LOW RISK 4.4 - 7.1 AVERAGE RISK 7.1 - 11.0 MODERATE RISK >11.0 HIGH RISKPerformed By: #### CMP, TSH, LIPID #### [facility] [address] [place] [address] Dr. David ZapataCholesterol [Mass/Vol]203 mg/dLCritically high<=200The [facility] on above:Performed By: #### CMP, TSH, LIPID #### [facility] [address] [place] [address] Dr. David ZapataCholesterol in HDL [Mass/Vol]57 mg/dPGcoogc06-03Zbq [facility] on above:Performed By: #### CMP, TSH, LIPID #### [facility] [address] [place] [address] Dr. David ZapataCholesterol in LDL [Mass/Vol]120.4 mg/dLSt. [facility] on above:Performed By: #### CMP, TSH, LIPID #### [facility] [address] [place] [address] Dr. David ZapataCholesterol.total/Cholesterol in HDL [Mass ratio]3.6 {ratio} NormalThe [facility] HospitalComment on above:Performed By: #### CMP, TSH, LIPID #### [facility] [address] [place] [address] Dr. David Garcia NORMAL> or = 60 mg/dl - LOW CARDIOVASCULAR RISK <40 mg/dl - HIGH CARDIOVASCULAR RISKKettering Health DaytonComment on above:Performed By: #### CMP, TSH, LIPID #### [facility] [address] [place] [address] Dr. David ZapataLDL CALC NORMALSEE BELOWKettering Health DaytonComment on above:Result Comment: <100 mg/dl OPTIMAL 100 - 129 mg/dl NEAR OR ABOVE OPTIMAL 130 - 159 mg/dl BORDERLINE HIGH 160 - 189 mg/dl HIGH >190 mg/dl VERY HIGH Performed By: #### CMP, TSH, LIPID #### [facility] [address] [place] [address] Dr. David ZapataTriglyceride [Mass/Vol]128 mg/dLNormal<=150The [facility] Comment on above:Performed By: #### CMP, TSH, LIPID #### [facility] [address] [place] [address] Dr. David ZapataVLDL CALC25.6 mg/dLNoOhioHealth Grant Medical CenterComment on above: Performed By: #### CMP, TSH, LIPID #### [facility] [address] [place] [address] Dr. David ZapataPROF 14(COMP METB)on [id number] [Mass/Vol]3.5 g/dLNormal 3.4-5.0The [facility] HospitalComment on above:Performed By: #### CMP, TSH, LIPID #### [facility] [address] [place] [address] Dr. David ZapataAlbumin/Globulin [Mass ratio]1.0 {ratio}NormalThe [facility] HospitalComment on above:Performed By: #### CMP, TSH, LIPID #### [facility] [address] [address] [address] David Crockett [Catalytic activity/Vol]68 U/MAkvpqq74-544Uvv [facility] HospitalComment on above:Performed By: #### CMP, TSH, LIPID #### [facility] [address] [address] [address] David GarciaT [Catalytic activity/Vol]28 U/CRmormo62-06Shf [facility] HospitalComment on above:Performed By: #### CMP, TSH, LIPID #### [facility] [address] [address] [address] David Tapiaon gap [Moles/Vol]11.3 mmol/LNormalThe [facility] Comment on above:Performed By: #### CMP, TSH, LIPID #### [facility] [address] [address] [address] David ZapataAST [Catalytic activity/Vol]18 U/DHxxeog41-41Kla [facility] HospitalComment on above:Performed By: #### CMP, TSH, LIPID #### [facility] [address] [address] [address] David ZapataBilirubin [Mass/Vol]0.4 mg/dLNormal0.2-1.0The [facility] Comment on above:Performed By: #### CMP, TSH, LIPID #### [facility] [address] [address] [address] David ZapataCalcium [Mass/Vol]8.8 mg/dLNormal8.5-10.1The [facility] Comment on above:Performed By: #### CMP, TSH, LIPID #### [facility] [address] [address] [address] David ZapataChloride [Moles/Vol]103 mmol/HKyjwrt55-592Sgb [facility] Comment on above:Performed By: #### CMP, TSH, LIPID #### [facility] [address] [address] [address] David ZapataCO2 [Moles/Vol]28.4 mmol/VXpjowk02.0-32.0The [facility] Comment on above:Performed By: #### CMP, TSH, LIPID #### [facility] [address] [address] [address] David ZapataCreatinine [Mass/Vol]0.96 mg/dLNormal0.55-1.02[facility] CenterComment on above:Performed By: #### CMP, TSH, LIPID #### [facility] [address] [address] [address] David ChavisGFR-AF ZIMBABWEAN>60Normal>=60The [facility] HospitalComment on above:Performed By: #### CMP, TSH, LIPID #### [facility] [address] [address] [address] David Mccallum-NON AF ZIMBABWEAN>60Normal>=60The [facility] HospitalComment on above:Performed By: #### CMP, TSH, LIPID #### [facility] [address] [address] [address] David ZapataGlobulin (S) [Mass/Vol]3.5 g/dLNormalThe [facility] HospitalComment on above:Performed By: #### CMP, TSH, LIPID #### [facility] [address] [place] [address] Dr. David ZapataGlucose [Mass/Vol]94 mg/aZEnvphy30-787OhyFirelands Regional Medical Center Comment on above:Performed By: #### CMP, TSH, LIPID #### [facility] [address] [address] [address] David ZapataPotassium [Moles/Vol]3.7 mmol/LNormal3.5-5.1The [facility] Comment on above:Performed By: #### CMP, TSH, LIPID #### [facility] [address] [place] [address] Dr. David ZapataProtein [Mass/Vol]7.0 g/dLNormal6.4-8.2The [facility] Comment on above:Performed By: #### CMP, TSH, LIPID #### [facility] [address] [place] [address] Dr. David ZapataSodium [Moles/Vol]139 mmol/DTtnvrf761-774Xpc [facility] Comment on above:Performed By: #### CMP, TSH, LIPID #### [facility] [address] [place] [address] Dr. David Khan nitrogen [Mass/Vol]8.0 mg/dLNormal7.0-18.0The [facility] HospitalComment on above:Performed By: #### CMP, TSH, LIPID #### [facility] [address] [place] [address] Dr. David Khan nitrogen/Creatinine [Mass ratio]8.3 mg/mgNormalThe [facility] HospitalComment on above:Performed By: #### CMP, TSH, LIPID #### [facility] [address] [place] [address] Dr. David ZapataTSHoroya 30-09-8983JOV6.557 uIU/mLNormal0.358-3.740The [facility] HospitalComment on above:Performed By: #### CMP, TSH, LIPID #### [facility] [address] [place] [address] Dr. David ZapataVITAMIN B12on 38-20-8006Klgvqjtyp (Vitamin B12) [Mass/Vol]247.0 pg/xNRuslto068.0-986.0The [facility] HospitalComment on above:Performed By: #### VITB12 #### [facility] [address] [place] [address] Dr. David ZapataNM STRESS/REST MULTIon 38-83-2580DW STRESS/REST MULTIPatient: ELVIA FOX Exam Date: 11/04/2022 : 1975 Gender:F Ordering : DR VIDHI ANDERSON M.D. Admission #: [id number] Family : Order #: [id number] CLICK HERE TO VIEW EXAM RADIOLOGY REPORT [...] by: Edilson John M.D. on 11/05/2022 at 11:01[facility] MAMM SCREEN 3D AMANUEL CADon [id number] MAMM SCREEN 3D AMANUEL CADPatient: ELVIA FOX Exam Date: 07/10/2022 : 1975 Gender:F Ordering : DR PAT HUSTON M.D. Admission #: [id number] Family : Order #: [id number] CLICK HERE TO VIEW EXAM RADIOLOGY REPORT PROCEDURE: MAMMOGRAM SCREENING 3D BILATERAL CAD COMPARISON: MG MAMM SCREEN AMANUEL W CAD, 08/16/2019. MG MAMM SCREEN 3D AMAUNEL CAD, 05/30/2021. INDICATIONS: Screening mammography Calculator Name NCI Breast Cancer Risk Assessment Tool 5 Year Breast Cancer Risk Not Reported. Lifetime Breast Cancer Risk Not Reported. Personal Breast Cancer No Personal Ovarian Cancer No Treatments None Family Cancers None LOCATION: [facility] BREAST COMPOSITION: Heterogeneously dense,which may obscure [...] by: Nilesh Deutsch MD on 07/10/2022 at 08:04[facility] AUTO DIFFon [id number] #0.0 103/ulNormal0.0-0.1The [facility] HospitalComment on above:Performed By: #### CBC #### [facility] [address] [place] [address] Dr. David ZapataBasophils/100 WBC (Bld)0.5 %Normal0.2-2.0[facility] Comment on above:Performed By: #### CBC #### [facility] [address] [place] [address] Dr. David Henry #0.3 103/ulNormal0.0-0.7The [facility] HospitalComment on above: Performed By: #### CBC #### [facility] [address] [place] [address] Dr. David Chavisosinophils/100 WBC (Bld)3.4 %Normal0.9-7.0[facility] Comment on above:Performed By: #### CBC #### [facility] [address] [place] [address] Dr. David Chavisrythrocyte distribution width (RBC) [Ratio]12.1 %Jfkylz08.0-15.0 The [facility] HospitalComment on above:Performed By: #### CBC #### [facility] [address] [place] [address] Dr. David ZapataHematocrit (Bld) [Volume fraction]40.6 %Egkzch02.0-48.0[facility] CenterComment on above:Performed By: #### CBC #### [facility] [address] [place] [address] Dr. David ZapataHemoglobin (Bld) [Mass/Vol]13.5 g/jDYwvrfz71.0-16.0The [facility] HospitalComment on above:Performed By: #### CBC #### [facility] [address] [place] [address] Dr. David Rubio #0.03 10e3/ulNormal0.00-0.03The [facility] HospitalComment on above:Performed By: #### CBC #### [facility] [address] [place] [address] Dr. David Rubio %0.4 %Normal0.0-0.5The [facility] HospitalComment on above: Performed By: #### CBC #### [facility] [address] [place] [address] Dr. David Barnhart #2.1 103/ulNormal1.2-3.8The [facility] HospitalComment on above:Performed By: #### CBC #### [facility] [address] [place] [address] Dr. David Riddlehocytes/100 WBC (Bld)28.6 %Raqein18.5-60.0The [facility] HospitalComment on above:Performed By: #### CBC #### [facility] [address] [place] [address] Dr. [facility] HanksMARTINS [facility] DIFF REQNONormalThe [facility] HospitalComment on above: Performed By: #### CBC #### [facility] [address] [place] [address] Dr. David León (RBC) [Entitic mass]29.2 ecNavwym51.7-34.0The [facility] HospitalComment on above:Performed By: #### CBC #### [facility] [address] [place] [address] Dr. David León (RBC) [Mass/Vol]33.3 g/fZRszpxi94.9-35.2The [facility] HospitalComment on above:Performed By: #### CBC #### [facility] [address] [place] [address] Dr. David LeónV (RBC) [Entitic vol]87.9 yBPqhqfo01.0-99.0The [facility] HospitalComment on above:Performed By: #### CBC #### [facility] [address] [place] [address] Dr. David Arellano #0.6 103/ulNormal0.3-0.8The [facility] HospitalComment on above:Performed By: #### CBC #### [facility] [address] [place] [address] Dr. David Sureshocytes/100 WBC (Bld)7.9 %Normal1.7-12.0The [facility] Comment on above:Performed By: #### CBC #### [facility] [address] [place] [address] Dr. David Noble #4.3 103/ulNormal1.4-6.5The [facility] HospitalComment on above:Performed By: #### CBC #### [facility] [address] [place] [address] Dr. David Arredondoutrophils/100 WBC (Bld)59.2 %Efmfrq38.0-75.0The [facility] HospitalComment on above:Performed By: #### CBC #### [facility] [address] [place] [address] Dr. David Nina mean volume (Bld) [Entitic vol]9.2 fLCritically low 9.5-13.5The [facility] HospitalComment on above:Performed By: #### CBC #### [facility] [address] [place] [address] Dr. David ZapataPLT280 103/ufOwlnqi396-659Rls [facility] HospitalComment on above: Performed By: #### CBC #### [facility] [address] [place] [address] Dr. David ZapataRBC4.62 106/ulNormal4.20-5.40The [facility] HospitalComment on above:Performed By: #### CBC #### [facility] [address] [place] [address] Dr. David ZapataWBC7.3 103/ulNormal4.0-11.0The [facility] on above: Performed By: #### CBC #### [facility] [address] [place] [address] Dr. David ZapataGLYCOHEMOGLOBIN A1Con [id number] RECOMMENDATIONSEE BELOWFairfield Medical CenterCommary free bed rehabilitation hospital on above:Result Comment: ADA RECOMMENDED LIMIT 4.0 - 6.0 ADA THERAPEUTIC TARGET < 7.0 ACTION SUGGESTED > 7.0Performed By: #### CMP, TSH, LIPID #### [facility] [address] [place] [address] Dr. David ZapataGlucose [Mass/Vol]103 mg/dLNoWhite Hospital on above:Performed By: #### CMP, TSH, LIPID #### [facility] [facility] [address] [place] [address] Dr. David ZapataHbA1c (Bld) [Mass fraction]5.2 %Normal4.5-6.2The [facility] on above:Performed By: #### CMP, TSH, LIPID #### [facility] [address] [place] [address] Dr. David ZapataLIPID PROFILEon [id number]-HDL RATIO NORMSEE [facility] on above:Result Comment: 3.3 - 4.4 LOW RISK 4.4 - 7.1 AVERAGE RISK 7.1 - 11.0 MODERATE RISK >11.0 HIGH RISKPerformed By: #### CMP, TSH, LIPID #### [facility] [address] [place] [address] Dr. David ZapataCholesterol [Mass/Vol]217 mg/dLCritically high<=200The [facility] on above:Performed By: #### CMP, TSH, LIPID #### [facility] [address] [place] [address] Dr. David ZapataCholesterol in HDL [Mass/Vol]50 mg/zCJriqpp92-73Kaa [facility] on above:Performed By: #### CMP, TSH, LIPID #### [facility] [address] [address] [address] David ZapataCholesterol in LDL [Mass/Vol]137.6 mg/dLKettering Health DaytonComment on above:Performed By: #### CMP, TSH, LIPID #### [facility] [address] [address] [address] David Suarezestermaciej.total/Cholesterol in HDL [Mass ratio]4.3 {ratio} NormalThe [facility] on above:Performed By: #### CMP, TSH, LIPID #### [facility] [address] [address] [address] David Garcia NORMAL> or = 60 mg/dl - LOW CARDIOVASCULAR RISK <40 mg/dl - HIGH CARDIOVASCULAR RISKKettering Health DaytonComment on above:Performed By: #### CMP, TSH, LIPID #### [facility] [address] [place] [address] Dr. David ZapataLDL CALC NORMALSEE BELOWNoOhioHealth Grant Medical CenterComment on above:Result Comment: <100 mg/dl OPTIMAL 100 - 129 mg/dl NEAR OR ABOVE OPTIMAL 130 - 159 mg/dl BORDERLINE HIGH 160 - 189 mg/dl HIGH >190 mg/dl VERY HIGH Performed By: #### CMP, TSH, LIPID #### [facility] [address] [place] [address] Dr. David ZapataTriglyceride [Mass/Vol]147 mg/dLNormal<=150[facility] Comment on above:Performed By: #### CMP, TSH, LIPID #### [facility] [address] [place] [address] Dr. David ZapataVLDL CALC29.4 mg/dLNoOhioHealth Grant Medical CenterComment on above: Performed By: #### CMP, TSH, LIPID #### [facility] [address] [place] [address] Dr. David ZapataPROKareem 14(COMP METB)on 73-35-6745Txvhoxi [Mass/Vol]3.6 g/dLNormal 3.4-5.0[facility] Medical CenterComment on above:Performed By: #### CMP, TSH, LIPID #### [facility] [address] [address] [address] David ZapataAlbumin/Globulin [Mass ratio]1.1 {ratio}NormalThe [facility] HospitalComment on above:Performed By: #### CMP, TSH, LIPID #### [facility] [address] [address] [address] David Crockett [Catalytic activity/Vol]62 U/UOplzbx49-689Jkw [facility] HospitalComment on above:Performed By: #### CMP, TSH, LIPID #### [facility] [address] [address] [address] David Szymanski [Catalytic activity/Vol]21 U/BUzzvyf32-98Ilb [facility] HospitalComment on above:Performed By: #### CMP, TSH, LIPID #### [facility] [address] [address] [address] David Tapiaon gap [Moles/Vol]12.6 mmol/LNormalThe [facility] Comment on above:Performed By: #### CMP, TSH, LIPID #### [facility] [address] [address] [address] David ZapataAST [Catalytic activity/Vol]14 U/LCritically pny82-02Rpu [facility] HospitalComment on above:Performed By: #### CMP, TSH, LIPID #### [facility] [address] [address] [address] David ZapataBilirubin [Mass/Vol]0.6 mg/dLNormal0.2-1.0The [facility] Comment on above:Performed By: #### CMP, TSH, LIPID #### [facility] [address] [address] [address] David ZapataCalcium [Mass/Vol]8.5 mg/dLNormal8.5-10.1The [facility] Comment on above:Performed By: #### CMP, TSH, LIPID #### [facility] [address] [address] [address] David ZapataChloride [Moles/Vol]103 mmol/IKijbll55-676Grk [facility] Comment on above:Performed By: #### CMP, TSH, LIPID #### [facility] [address] [address] [address] David ZapataCO2 [Moles/Vol]26.2 mmol/OPzdyhd05.0-32.0The [facility] Comment on above:Performed By: #### CMP, TSH, LIPID #### [facility] [address] [place] [address] Dr. David ZapataCreatinine [Mass/Vol]0.94 mg/dLNormal0.55-1.02[facility] CenterComment on above:Performed By: #### CMP, TSH, LIPID #### [facility] [address] [place] [address] Dr. David ChavisGFR-AF ZIMBABWEAN>60Normal>=60The [facility] HospitalComment on above:Performed By: #### CMP, TSH, LIPID #### [facility] [address] [place] [address] Dr. David ChavisGFR-NON AF ZIMBABWEAN>60Normal>=60The [facility] HospitalComment on above:Performed By: #### CMP, TSH, LIPID #### [facility] [address] [place] [address] Dr. David ZapataGlobulin (S) [Mass/Vol]3.3 g/dLNormalThe [facility] HospitalComment on above:Performed By: #### CMP, TSH, LIPID #### [facility] [address] [place] [address] Dr. David ZapataGlucose [Mass/Vol]100 mg/zNGazqxh59-918Crj [facility] Comment on above:Performed By: #### CMP, TSH, LIPID #### [facility] [address] [place] [address] Dr. David ZapataPotassium [Moles/Vol]3.8 mmol/LNormal3.5-5.1The [facility] Comment on above:Performed By: #### CMP, TSH, LIPID #### [facility] [address] [place] [address] Dr. David ZapataProtein [Mass/Vol]6.9 g/dLNormal6.4-8.2The [facility] Comment on above:Performed By: #### CMP, TSH, LIPID #### [facility] [address] [address] [address] David ZapataSodium [Moles/Vol]138 mmol/TVvyqxh463-269Mdk [facility] Comment on above:Performed By: #### CMP, TSH, LIPID #### [facility] [address] [address] [address] David ZapataUrea nitrogen [Mass/Vol]7.0 mg/dLNormal7.0-18.0The [facility] HospitalComment on above:Performed By: #### CMP, TSH, LIPID #### [facility] [address] [place] [address] Dr. David ZapataUrea nitrogen/Creatinine [Mass ratio]7.4 mg/mgNormalThe [facility] HospitalComment on above:Performed By: #### CMP, TSH, LIPID #### [facility] [address] [place] [address] Dr. David Tobias 22-51-0920QLC0.434 uIU/mLNormal0.358-3.740The [facility] HospitalComment on above:Performed By: #### CMP, TSH, LIPID #### [facility] [address] [place] [address] Dr. David ZapataMRI BRAIN WO W CONon [id number] BRAIN WO W CONEXAMINATION: MRI BRAIN WO [...] Electronically authenticated by: EDILSON JOHN Date: 2022-06-10 06:40[facility] METABOLIC PANELon 90-01-0608Glazfmf [Mass/Vol]8.6 mg/dL Normal8.6-10.3The [facility] CenterComment on above:Order Comment: No: Do not add to previous drawPerformed By: #### 10946, 75353 #### [facility] [address] [place] [address], USAChloride [Moles/Vol]106 mmol/CSmtkws67-045Txh [facility] CenterComment on above:Order Comment: No: Do not add to previous drawPerformed By: #### 47320, 78010 #### [facility] [address] [place] [address], USACO2 [Moles/Vol]24 mmol/CYbbbfd10-89Znm [facility] CenterComment on above:Order Comment: No: Do not add to previous draw Performed By: #### 02335, 17495 #### [facility] [address] [place] [address], USACreatinine [Mass/Vol]0.90 mg/dLNormal0.60-1.20The [facility] Medical CenterComment on above:Order Comment: No: Do not add to previous drawPerformed By: #### 27330, 40314 #### [facility] [address] [place] [address], USAGFR/1.73 sq M predicted among blacks MDRD (S/P/Bld) [Vol rate/Area]mL/min/{1.73_m2}Normal>60The [facility] Comment on above:Order Comment: No: Do not add to previous drawPerformed By: #### 18144, 17710 #### [facility] [address] [place] [address], USAGFR/1.73 sq M predicted among non-blacks MDRD (S/P/Bld) [Vol rate/Area]mL/min/{1.73_m2}Normal>60The [facility] Comment on above:Order Comment: No: Do not add to previous drawPerformed By: #### 40045, 07229 #### [facility] [address] [place] [address], USAGlucose [Mass/Vol]97 mg/rPXyllex37-044Dsu [facility] CenterComment on above:Order Comment: No: Do not add to previous drawPerformed By: #### 92981, 05125 #### [facility] [address] [place] [address], USAPotassium [Moles/Vol]3.9 mmol/LNormal3.5-5.1The [facility] CenterComment on above:Order Comment: No: Do not add to previous drawPerformed By: #### 42863, 12760 #### [facility] [address] [place] [address], USASodium [Moles/Vol]136 mmol/JIljfnd474-435Snt [facility] CenterComment on above:Order Comment: No: Do not add to previous drawPerformed By: #### 08069, 10618 #### [facility] [address] [place] [address], USAUrea nitrogen [Mass/Vol]11 mg/dLNormal7-25The [facility] CenterComment on above:Order Comment: No: Do not add to previous drawPerformed By: #### 31840, 01414 #### [facility] [address] [place] [address], [facility] CENTERCBC COMPLETE BLOOD COUNTon 07-35-1242Dmcxdutrudt distribution width (RBC) [Ratio]12.0 %Qweodn65.5-15.0The [facility] Medical CenterComment on above:Order Comment: No: Do not add to previous draw Performed By: #### 82923 #### [facility] [address] [place] [address], USAHematocrit (Bld) [Volume fraction]42.7 %Mhayin23.0-45.0The [facility] Medical CenterComment on above:Order Comment: No: Do not add to previous drawPerformed By: #### 09601 #### [facility] [address] [place] [address], [facility]ICAL CENTERHemoglobin (Bld) [Mass/Vol]13.9 g/wNOudxpb25.0-15.0The [facility] CenterComment on above:Order Comment: No: Do not add to previous drawPerformed By: #### 85518 #### [facility] [address] [facility] [place] [address], [facility] STIGLERH (RBC) [Entitic mass]29.6 kmPjkvrg17.0-33.0The [facility] CenterComment on above:Order Comment: No: Do not add to previous drawPerformed By: #### 19285 #### [facility] [address] [facility] [place] [address], [facility] STIGLERHC (RBC) [Mass/Vol]32.6 g/tCVatllt48.0-35.0The [facility] CenterComment on above:Order Comment: No: Do not add to previous drawPerformed By: #### 74283 #### [facility] [address] [place] [address], [facility] STIGLERV (RBC) [Entitic vol]91.0 sRIspnfg97.0-98.0The [facility] CenterComment on above:Order Comment: No: Do not add to previous drawPerformed By: #### 43169 #### [facility] [address] [place] [address], USANucleated RBC/100 WBC (Bld) [Ratio]0 %Normal0-0The [facility] CenterComment on above:Order Comment: No: Do not add to previous drawPerformed By: #### 89685 #### [facility] [address] [place] [address], USAPLAT CUK467 10*3/nBMzeakm061-863Rka [facility] CenterComment on above:Order Comment: No: Do not add to previous draw Performed By: #### 66909 #### [facility] [address] [place] [address], USARBC (Bld) [#/Vol]4.69 10*6/uLNormal3.80-5.00The [facility] CenterComment on above:Order Comment: No: Do not add to previous drawPerformed By: #### 24209 #### [facility] [address] [place] [address], [facility] CENTERWBC (Bld) [#/Vol]8.19 10*3/uLNormal4.00-10.60The [facility] Medical CenterComment on above:Order Comment: No: Do not add to previous drawPerformed By: #### 32474 #### [facility] [address] [place] [id number], USACardiovascular Lab Reporton [id number] Lab ReportUnPremier Health [facility] MR #: [id number] Department of Physician: Mike Polanco M.D. Division of Service Date: 06/16/2019 Cardiology Birthdate: 1975 Adult Cardiovascular Room #: 3AB [id number] [facility] [address] [place] [address] Cardiovascular Laboratory Report FINAL IMPRESSIONS: 1. Angiographically [...] the left radial artery was obtained. A 6-[place]orese glide sheath was inserted without difficulty. Bilateral [...] Anderson M.D. Date Trans: 06/17/2019 04:09 A/adela DN_JN:[id number] cc: Pat Huston M.D. [address] [place] [address] Amos Vazquez M.D. [address] [id number] Medical Specialty Hospital - TrumbullHEMOGLOBIN A1Con 11-58-6469LfG8a (Bld) [Mass fraction]4.8 %Normal4.0-6.0The [facility] Medical CenterComment on above:Order Comment: Yes: Add to Previous draw if ablePerformed By: #### 40398, 69943 #### [facility] [address] [facility] [place] [address], CZQQlR0p (Bld) [Mass fraction]91 mg/fHMzkwmd57-498Hgt [facility] CenterComment on above:Order Comment: Yes: Add to Previous draw if ablePerformed By: #### 92769, 98486 #### [facility] [address] [facility] [place] [address], USALIPID PROFILEon 33-50-1450Evqzpibzsqw [Mass/Vol]209 mg/dL Emku733-796Nxz [facility] CenterComment on above:Order Comment: Yes: Add to Previous draw if ableResult Comment: CHOLESTEROL REFERENCE RANGE: 20 YEARS AND OLDER CARDIOVASCULAR RISK Less than 200 mg/dl Low Risk 200 to 239 mg/dl Borderline Risk 240 mg/dl and greater High RiskPerformed By: #### 51125, 63049, 32186, 98465 #### [facility] [address] [place] [address], USACholesterol in HDL [Mass/Vol]35 mg/eZFjosqe95-70Wly [facility] CenterComment on above:Order Comment: Yes: Add to Previous draw if ableResult Comment: Slight variation in normal range could be due to gender and/or age. HDL CHOLESTEROL REFERENCE RANGE: 20 years and older Cardiovascular Risk > or =60 mg/dL Desirable 40 TO 59 mg/dL Low Risk <40 mg/dL High RiskPerformed By: #### 98237, 37618, 34674, 97265 #### [facility] [address] [place] [address], USACholesterol in LDL [Mass/Vol]139 mg/dLHigh0-130The [facility] Medical CenterComment on above:Order Comment: Yes: Add to Previous draw if ableResult Comment: LDL IS A CALCULATION LDL IS ONLY VALID IF THE TRIG IS LESS THAN 400.Performed By: #### 01080, 04148, 00455, 73350 #### [facility] [address] [place] [address], USACholesterol.total/Cholesterol in HDL [Mass ratio]6.0 {ratio}High0.0-4.5The [facility] CenterComment on above:Order Comment: Yes: Add to Previous draw if ablePerformed By: #### 71252, 06536, 60040, 94863 #### [facility] [address] [place] [address], USANON-HDL SFVPMQYGMSG809 mg/dLNormalThe [facility] CenterComment on above:Order Comment: Yes: Add to Previous draw if able Performed By: #### 01940, 53436, 74692, 38290 #### [facility] [address] [place] [address], USATriglyceride [Mass/Vol]174 mg/tIIphx43-963Icj [facility] CenterComment on above:Order Comment: Yes: Add to Previous draw if ableResult Comment: TRIGLYCERIDE REFERENCE RANGE: 20 YEARS AND OLDER CARDIOVASCULAR RISK LESS THAN 150 mg/dl LOW RISK 150 TO 199 mg/dl BORDERLINE RISK 200 mg/dl AND GREATER HIGH RISKPerformed By: #### 28440, 40530, 40439, 90292 #### [facility] [address] [place] [address], USAVLDL CHOL35 mg/dLNormal0-40The [facility] CenterComment on above:Order Comment: Yes: Add to Previous draw if able Performed By: #### 93927, 64299, 85052, 03683 #### [facility] [address] [place] [address], USAMAGNESIUM BLOODon 84-60-3598Utmpywryk [Mass/Vol]2.2 mg/dL Normal1.9-2.7The [facility] CenterComment on above:Order Comment: No: Do not add to previous drawPerformed By: #### 15385, 89368, 80485, 48212 #### [facility] [address] [place] [address], USAPHOSPHORUS BLOODon 13-99-1682Byicikuab [Mass/Vol]4.3 mg/dL Normal2.5-5.0The [facility] CenterComment on above:Order Comment: No: Do not add to previous drawPerformed By: #### 87071, 44592 #### [facility] [address] [place] [address], USAAPTTon 70-36-2914vOIC Coag (Bld) [Time]27.3 sNormal 25.0-35.0The [facility] Medical CenterComment on above:Result Comment: ALL RESULTS MUST BE [...] BE USED FOR THIS PURPOSE.Performed By: #### 46209, 83962 #### [facility] [address] [place] [address], USABASIC METABOLIC PANELon 33-08-9476Zxvozhs [Mass/Vol]9.3 mg/dLNormal8.6-10.3The [facility] CenterComment on above:Order Comment: No: Do not add to previous drawPerformed By: #### 72405, 72094, 41352, 65741, 24627 #### [facility] [address] [place] [address], USAChloride [Moles/Vol]105 mmol/ZXrmsso98-301Bzo [facility] CenterComment on above:Order Comment: No: Do not add to previous drawPerformed By: #### 85993, 29492, 64697, 17262, 78102 #### [facility] [address] [place] [address], USACO2 [Moles/Vol]23 mmol/JZdpszs22-55Mkb [facility] CenterComment on above:Order Comment: No: Do not add to previous draw Performed By: #### 84119, 82963, 81367, 54424, 27761 #### [facility] [address] [place] [address], USACreatinine [Mass/Vol]0.85 mg/dLNormal0.60-1.20The [facility] CenterComment on above:Order Comment: No: Do not add to previous drawPerformed By: #### 51511, 32473, 14032, 67074, 99631 #### [facility] [address] [place] [address], USAGFR/1.73 sq M predicted among blacks MDRD (S/P/Bld) [Vol rate/Area]mL/min/{1.73_m2}Normal>60The [facility] Comment on above:Order Comment: No: Do not add to previous drawPerformed By: #### 92113, 83628, 31316, 00634, 30078 #### [facility] [address] [place] [address], USAGFR/1.73 sq M predicted among non-blacks MDRD (S/P/Bld) [Vol rate/Area]mL/min/{1.73_m2}Normal>60The [facility] Comment on above:Order Comment: No: Do not add to previous drawPerformed By: #### 81544, 43519, 59360, 48340, 96349 #### [facility] [address] [place] [address], USAGlucose [Mass/Vol]91 mg/mSPjjtnp63-234Eho [facility] CenterComment on above:Order Comment: No: Do not add to previous drawPerformed By: #### 29057, 96767, 87677, 95095, 42330 #### [facility] [address] [place] [address], USAPotassium [Moles/Vol]3.9 mmol/LNormal3.5-5.1The [facility] CenterComment on above:Order Comment: No: Do not add to previous drawPerformed By: #### 50863, 59007, 88941, 32775, 36725 #### [facility] [address] [place] [address], USASodium [Moles/Vol]136 mmol/KJwvkuq400-410Anp [facility] CenterComment on above:Order Comment: No: Do not add to previous drawPerformed By: #### 67968, 10551, 00792, 30785, 20435 #### [facility] [address] [place] [address], USAUrea nitrogen [Mass/Vol]10 mg/dLNormal7-25The [facility] CenterComment on above:Order Comment: No: Do not add to previous drawPerformed By: #### 62401, 88937, 37209, 81566, 08275 #### [facility] [address] [place] [address], USAFREE T3on 23-93-1453Mwje T3 [Mass/Vol]2.6 pg/mLNormal 2.5-3.9The [facility] CenterComment on above:Performed By: #### 44684, 44796, 04479, 59161, 91343 #### [facility] [address] [place] [address], USAFREE T4on 54-67-8930Diue T4 [Mass/Vol]0.73 ng/dLNormal 0.71-1.85The [facility] CenterComment on above:Performed By: #### 84750, 75328, 20412, 41257, 30560 #### [facility] [address] [place] [address], USAMAGNESIUM BLOODon 53-71-7726Jgghanqej [Mass/Vol]2.2 mg/dL Normal1.9-2.7The [facility] CenterComment on above:Order Comment: No: Do not add to previous draw MissPerformed By: #### 20369, 82407, 41978, 17901, 21582 #### [facility] [address] [place] [address], USAPROTHROMBIN TIMEon 63-41-1802XNY Coag (PPP) [Relative time] 1.06 {INR}Normal0.91-1.16The [facility] CenterComment on above:Result Comment: ACCCP RECOMMENDED INR FOR [...] OPTIMAL THERAPEUTIC RANGE. CHEST 1995;108:231S-246S.Performed By: #### 22232, 29862 #### [facility] [address] [facility] [address], USAPT Coag (PPP) [Time]13.8 gCxywoi55.3-14.8The [facility] CenterComment on above:Result Comment: ALL RESULTS MUST BE INTERPRETED WITH RESPECT TO BLOOD DRAWING ARTIFACT OR DILUTION ERROR OF ANTICOAGULANT AT THE TIME OF SAMPLING.Performed By: #### 85789, 98867 #### [facility] [address] [facility] [place] [address], BBTWSK8ea 61-29-7049RVF 3RD GENERATION1.94 uIU/mLNormal 0.34-5.60The [facility] CenterComment on above:Performed By: #### 23869, 93458, 04552, 88769, 72584 #### [facility] [address] [facility] [place] [address], [facility] Vital Signs Date TimeVital SignValuePerforming FtqjynyhsMhhwfmae36-68-0782 16:18-0400 Diastolic blood zogsunhw42 mm[Hg]Pat Huston MD Work Phone: [facility]07-31-2025 16:18-0400 Heart rate62 /Rubina Huston MD Work Phone: [facility]07-31-2025 16:18-0400 Systolic blood mm[Hg]Pat Huston MD Work Phone: [facility]12-16-2024 11:00-0500 Body oorwih409.1 cmAchristiano Daskeya MARINE MACHINIST Work Phone: [facility] CenterLpggiuodke60-12-1130 11:00-0500Body mass index (BMI) [Ratio]35.65 kg/r2IfmhpkHarlan Woodsmor MARINE MACHINIST Work Phone: [facility] CenterEkvcnixhwd20-00-9971 11:00-0500Body odsoha75.18 kgHarlan Dasr MARINE MACHINIST Work Phone: [facility] CenterWygndbyaax06-91-3268 11:00-0500Diastolic blood rlwewncl70 mm[Hg]Harlan Woodsvik MARINE MACHINIST Work Phone: [facility] CenterChoxjbpbsa95-89-4545 11:00-0500Heart rate58 /min Harlan Woodsvik MARINE MACHINIST Work Phone: [phone] CenterXfbecmyhfq39-45-6797 11:00-1426WbY4% (BldA) [Mass fraction]98 %Harlan Woodsvik MARINE MACHINIST Work Phone: [facility] CenterLtjbnwpktu72-83-5987 11:00-0500Systolic blood lmwbupas657 mm[Hg]Harlan Woodsvik MARINE MACHINIST Work Phone: [facility] CenterDsewtufxnz28-03-1080 11:16-0400Body civkig645.[address] [facility]10-30-2024 11:16-0400Body mass index (BMI) [Ratio]35.4 kg/o8KykgpgoecMercy Health St. [facility]10-30-2024 11:16-0400Body iqscow67.[address] [facility]10-30-2024 11:16-0400Diastolic blood bjcsests36 mm[Hg][facility]10-30-2024 11:16-0400 Heart rate65 /minMercy Health St. [facility]10-30-2024 11:16-0400Systolic blood mm[Hg][facility]11-14-2023 10:29-0500 Body adaavk344.1 cmMD Pat Huston Work Phone: [facility]11-14-2023 10:29-0500 Body yehqtg29.52 kgMD Pat Trip Work Phone: [facility] Encounters Encounter DateEncounter TypeCare ProviderFacilityStart: 05-24-2025 End: 01-62-1232rhkoxicndbPvxjgv E Braun MD Work Phone: [facility] Work Phone: Start: 05-24-2025 End: 69-89-5614Ywektrq encounter Hoang Brandt [facility] Neurology [place] Work Phone: Start: 05-03-2025 End: 42-57-4390uhiuddttcbLABNAultman Orrville Hospitaltart: 10-09-2024 End: 07-76-5433Yxfxim flowsheetHarlan Niño MARINE MACHINIST Work Phone: [facility] [address]: 10-09-2024 End: 63-52-0684Sxwtqn flowsRandolph Niño MARINE MACHINIST Work Phone: noMS [address]Start: 10-09-2024 End: 25-50-2678Zvfleb outpatient visit 25 minutesAngejayne Niño NP Work Phone: n[facility] [address]TEComment on above:Abnormal MRI (Primary Dx); Anisocoria; Tremor; Tension-type headache, not intractable, unspecified chronicity pattern; Vertigo; Primary insomniaStart: 10-09-2024 End: 26-97-6746iphuualabjVYKVQK GILLMORNot AvailableStart: 26-78-9113Dwiryfn encounter statusWadsworth-Rittman Hospitaltart: 08-23-2024 End: 89-67-9398akazewiyriFqefwhdivHolzer Hospital Work Phone: Start: 08-23-2024 End: 48-87-9465Ldfifqm encounter procedureMission Hospital [facility] Work Phone: Start: 03-16-2024 End: 62-22-0511Drgzapgbd Result EncounterAngela Gillmor MARINE MACHINIST Other Phone: noms External Department UnsolicitedStart: 03-16-2024 End: 14-51-4754Ozpqolrop Result EncounterAngejayne Woodsmercedr MARINE MACHINIST Other Phone: noms External Department UnsolicitedStart: 02-28-2024 End: 76-44-6538oecesmzhukNOVDDR JAREDMERCEDRNot AvailableStart: 07-27-0570Ojtcbysay encounterMarcia [facility] Hospitaltart: 09-07-2023 End: 78-04-3994uvumtmmgmpRtqjhy E BraunFacility:[facility] Hospitaltart: 09-07-2023 End: 75-68-1710hivmfxfwhkVS Marcia E Braun Work Phone: [facility] Work Phone: Start: 09-07-2023 End: 1977Subcjhl encounter procedureMD Pat Huston Work Phone: [facility] [place] Work Phone: Start: 08-06-2023 End: 43-45-9675hahoalejldRemuej Braun Other [facility]iu [facility] Other Start: 68-45-7451Xibufcaps encounterMarcia TripBerger Hospitaltart: 07-27-2023 End: 55-49-1396suteusbcawOxogsf Braun Other [facility] Other Start: 89-94-5322Gqwoicmgl encounterMarcia BraunBlanchard [facility] System [facility] ClinicStart: 07-13-2023 End: 83-88-0885fwpgxejroiMaurzt Trip Other [facility] Other Start: 22-05-6723Zzwwlwapx encounterMarcia BraunBerger Hospitaltart: 07-06-2023 End: 34-27-2974zkavhtsuwzVbsfbz Trip Other noDailyDigital Other Start: 40-61-1769Ljhqomqey encounterPat HustonBerger Hospitaltart: 85-71-4616ynopsibtvnOalgtipebor Abdelaziz Facility:[facility] Hospitaltart: 56-82-6888lqklfudmqpOI EHAB ELTAHAWYFacility:J0Xmsdu: 02-16-2023 End: 77-24-9316mjcoralcsrLV JL DANNERFacility:G3Xaoqy: 02-11-2023 End: 97-63-7357jugtdsqbxsXL EHAB ELTAHAWYFacility:M5Mekny: 93-91-5907Iveflojkp for general adult medical examination without abnormal findingsDR PAT HUSTON [facility]ertart: 11-19-2022 End: 00-03-5734xuloytsczkOhohjo Braun Other noDailyDigital Other Start: 13-30-7042Aysomosmp encounterPat HustonBerger Hospitaltart: 11-18-2022 End: 35-53-2093ezqmvffllaKD PAT HUSTONFacility:U7Dlynz: 11-18-2022 End: 24-27-4302Lhymbklvb for general adult medical examination without abnormal findingsDR PAT HUSTONFacility:P3Mkdud: 11-04-2022 End: 20-02-4994uvblseyyshTL EHAB ELTAHAWYFacility:A7Yykio: 07-10-2022 End: 81-67-6499gxmnivcnusOT PAT HUSTONFacility:Z7Yauva: 84-03-3619Gsgcr health examinationLisluisitochantelle Trip Other noDailyDigital Other Start: 42-93-8075Pptfmxzgw for general adult medical examination without abnormal findingsPat Huston Other noDailyDigital Other Start: 06-24-2022 End: 37-70-3497sgkeafkfzrVU PAT E BRAUNFacility:W5Dkwpj: 06-09-2022 End: 82-54-7141cjhycfenufZT DOCTOR MISCFacility:I5Jaqgd: 06-16-2019 End: 92-30-3785Wdnpuqg encounter procedureOMAR BEENAHOURANIFacility:UTMCStart: 16-13-7082Andmmpepkyelf examination normalPat Huston Other Nort [facility] Other Procedures DateProcedureProcedure DetailPerforming ClinicianStart: 43-80-3026BDX HEAD/BRAIN WO/W Scott Niño NP Other Phone: Start: 30-13-7290YJS of bilateral breasts with contrastMD Pat Trip Work Phone: Start: 65-48-5370Zjvanhyyk visitPat Huston Other Start: 43-07-1578Bwkknwpddynwv care educationPat Huston Other Screening for malignant neoplasm of breastPat Huston Other Viral screeningPat Huston Other Plan of Treatment DateCare ActivityDetailAuthorStart: 04-02-2025 End: 18-24-1761Gigrpqu encounter /09/2025 4:00 PM EDT Office Visit [facility] [address] [place] [phone] Harlan Niño NP [address] [place] [address] [facility]BLANCHARD [facility] ROUTEStart: 10-09-2024 End: 15-05-1181Jfeyrha encounter gssuugzlw34/16/2024 10:40 AM EST Office Visit [facility] [address] [place] [phone] Harlan Niño MARINE MACHINIST [address] [place] [address] ArrivedNOMEMORIAL HEALTH SYSTEM ROUTEComment on above: ArrivedComprehensive metabolic 2000 panel - Serum or PlasmaMercy Health St. Charles HospitalXR Pelvis and Hip - bilateral ViewsHCA Florida St. [facility] Payers DatePayer CategoryPayerPolicy [id number] [facility] ..[id number] [id number] 2..1.66074[id number] 2..1.924697.3.57[id number] 2..1.355975.3.579.[id number] 2..1.671094.3.57[id number] 2..1.833076.3.57[id number] 2..1.168918.3.579.[id number] 2..1.331535.3.579.[id number] 2.16.840.1.423094.3.579.[id number] 2.16.840.1.649818.3.579.[id number] 2.16.840.1.762209.3.57[id number] 2..840.1.450268.3.57[id number] 2.16.840.1.604198.3.579.2.765316-56-1100Zidf-[id number] Other1 (STD)[id number] 95203vji-296u-5t73-r29k-[id number] 2.0.1.137001.3.579.2.609Xploocd89041350 2.840.1.906856.3.579.2.531 Social History DateTypeDetailFacilityUnknown if ever smokedBuckland [facility] Other Start: 02-28-2024 End: 32-62-2652Bxk Assigned At [facility] Other Start: 80-49-8281Tco Assigned At [facility]ertart: 04-20-2022 End: 38-12-8324Tzfstqv smoking status NHISNever smoked tobacco (finding) [facility] Hospitaltart: 90-34-3690Owhmdpv use and exposure Smokeless tobacco non-userNOMS HealthcareStart: 02-28-2024 End: 67-52-5180Oouokrcss beverage intakeLifetime non-drinker (finding)[facility]OM[facility] HealthcareStart: 02-28-2024 End: 26-26-0745Btpjgry of Social functionNOMS HealthcareStart: 94-23-2068Jlofjh identityIdentifies as female gender (finding)NOM[facility] HealthcareSexFemale (finding) [facility] Hospitaltart: 03-41-0329CzoQurfspXLKWRegency Hospital of Florence Clinical Notes 11-04-2022 to 05-03-2025 Note Date & WrbkKqeiSrffohak87-35-8779 [facility] Chief Complaint: Patient [...] dizziness. She did see one of our brazer controlled atmospheric furnace Dr. Guevara and they discussed the potential [...] Paroxysmal tachycardia (CMS/HCC), Prinzmetal angina, and WPW (Rpgrt-Yuzoobsch-Vlcpj syndrome). Surgical History She has a past [...] to pulmonary hypertension and/o (more content not included)...[facility] 07-27-2023 Evaluation note* Encounter Date Diagnosis Assessment Notes Treatment Notes Treatment Clinical Notes Jul, Abnormal mammogram (ICD-10 - R92 .8) [facility] Other 09-19-2023 Evaluation note* Encounter Date Diagnosis Assessment Notes Treatment Notes Treatment Clinical Notes Jun, Abnormal mammogram of right rae st (ICD-10 - R92.8) [place] [facility] Other 09-12-2023 Evaluation note* Encounter Date Diagnosis Assessment Notes Treatment Notes Treatment Clinical Notes Jun, Screening mammogram for breast c ancer (ICD-10 - Z12.31) [facility] Other 01-11-2023 NoteCARDIAC STRESS TEST Requesting Physician: [...] further information. 7. Clinical correlation is recommended.[facility] HospitalEvaluation noteNo InformationNossm health care [facility] Other Evaluation noteNo assessment information available [facility] Work Phone: Evaluation note* Diagnosis Onset Date Resolution Status Bilateral hip pain acute [facility] Work Phone: Evaluation note* Diagnosis Abnormal MRI- [...] CERVICAL DISORDERSurgical Historyarthroscopy twice-2006,2008; rhinoplasty Surgical Historylap-hystoscopy, d&r9092Kboocnnt HistoryhysterectomySurgical Historybone marrow kyycfgir6582Vatiqrmmtbrpqol Historysee above [employer] Other History general Narrative - Reported* Type [...] Title : Outpatient,Surgical HistoryProblem Title : NON CORPORATE LEGAL MANAGER SURGERIES: Right knee arthroscopy, Problem Status : [...] Ligation, Problem Status : Active,Hospitalization Historysee above [employer] Other Reason for referral (narrative)No reason for referral information availableFirelands Regional Med Center Work Phone: Summary Purpose Family History Relationship Condition Age at Onset Recorded Date/T porfirio father Hypertension Unknown Heart diseaseUnknownHistory of strokeUnknownmotherHypertensionUnknown Advance Directives Advance Directive Response Recorded Date/ Time Advance Directives No August 9:55am Advance Directive Response Recorded Date/ Time Advance Directives No August 10:55am Hospital Course Note MR#: [id number] [facility] Pt. Name: Elvia Fox Admitted: 06/16/2019 Discharged: 06/17/2019 Date of : 1975 Physician: Alessandro Lin MD DISCHARGE SUMMARY PRIMARY DIAGNOSES: 1. Typical chest pain with abnormal stress test. Post heart catheterization, which demonstrated no significant coronary artery stenosis. 2. Major depressive disorder. 3. Lower end of normal T4 with normal TSH. 4. Yrtno-Qkmsbvnid-Cphmc. HOSPITAL COURSE: The patient is a 43-year-old [...] and content) DATE CREATED AUTHOR 09/18/[address] [facility] DATE CREATED AUTHOR AUTHOR'S ORGANIZ ATION 03/07/2023 [facility] DATE CREATED AUTHOR AUTHOR'S ORGANIZ ATION 10/14/[address] [facility] DATE CREATED AUTHOR AUTHOR'S ORGANIZ ATION 10/11/2024 [facility] DATE CREATED AUTHOR AUTHOR'S ORGANIZ ATION 06/08/2025 [facility] REASON FOR VISIT (unrecogniz ed [...] End: August 23, 2024Team MemberRelationshipSpecialtyStart DateEnd Date Pat Huston MD [address] [facility] [place] [phone] PCP General02/27/24Team MemberRelationshipSpecialtyStart DateEnd Date Pat Huston MD [address] [facility] [place] [phone] PCP - General02/27/24 Jl Aguilar DO [address] [place] [address] Referring YrxvcdtnuDjovuyzxz61/16/24 Team Status: Inactive Member Role Status Dates Pat Huston MD Primary Care Provider Active Start: May 24, 2025 End: May 24Alicja Coleman ProviderActiveStart: May 24, 2025 End: May 24, 2025Team MemberRelationshipSpecialtyStart DateEnd Date Pat Huston MD PCP - General02/27/24 Harlan Niño NP PCP - [employer]// Jl Aguilar DO [address] [place] [address] Referring CeiyjrsxiCwyzzdmhb39/16/24 Goals (unrecognized section and content) Goals may [...] BE BASED ON THE PRIMARY CLINICAL RECORDS. [employer] [facility]. provides no warranty or guarantee of the accuracy or completeness of information in this document.
[2025-08-27 08:45] LABS: Anion Gap 9.4; Blood Urea Nitrogen 8.0 mg/dL (7.0-18.0); Calcium 8.7 mg/dL (8.5-10.1); Carbon Dioxide 30.0 mmol/L (21.0-32.0); Chloride 103 mmol/L (98-107); Estimated GFR (African America >60 (>=60 mL/min/1.73m^2); Estimated GFR (Non-African Ame 51 (>=60 mL/min/1.73m^2); Glucose 95 mg/dL (74-106); Potassium 3.4 mmol/L (3.5-5.1); Sodium 139 mmol/L (136-145)
== END 2025-08-27 07:41 | disposition home or self-care (01) ==
LOC: LAB 07:43
PROVIDERS: PCP Family Medicine; Visit Provider Emergency Medicine
DX: E87.6 Hypokalemia (principal)
CPT/HCPCS: 36415; 80048

== ENCOUNTER 2025-09-06 07:02 | Outpatient (OUT) | payer BC, SELFPAY ==
--- OUTSIDE RECORDS SUMMARY | 2025-09-06 07:06 | XMS_ITS | CCD ---
Author Organization [facility] Care Team Providers Care Licensed Physical Therapist Assistant Name Role Phone ALESSANDRO LIN Admitting Unavailable ALESSANDRO LIN Attending Unavailable PAT HUSTON Referring Unavailable ROBEL, PAT Primary Care Unavailable Pat Huston Unavailable ROBEL, DR PAT Kumari Admitting Unavailable HUSTON, DR PAT Kumari Attending Unavailable HUSTON, DR PAT Kumari Primary Care Unavailable VETERAN, DR NILESH Foy Consulting Unavailable HUSTON, DR [...] Unavailable MD Pat Huston Primary Care Provider [phone] MD Pat Huston Attending Provider [phone] Pat Huston Admitting Unavailable Pat Huston Primary Care Unavailable Pat Huston Attending Unavailable Kevon Samuel Admitting Unavailab Kevon Morejon Attending Unavailab Pat Mcgovern Primary Care Unavailable Pat Huston MD Primary Care Provider [phone] Addiedusty PARKS Jl Unavailable HARLAN NIÑO Attending Unavailable HARLAN NIÑO Attending Unavailable Pat Huston MD Primary Care Provider Harlan Niño APRN Attending Provider Pat Huston MD Primary Care Provider [phone] Harlan Niño NP Unavailable Addie PARKS Jl Unavailable VIDHI ANDERSON Attending Unavailable Allergies Allergy ClassificationReported Allergen(s)Allergy TypeDate of OnsetReaction(s) Facility (2 sources)Acetaminophen / oxyCODONEDrug Bvwmlcx29-52-2163Clv [facility] Repository (8 sources)levoFLOXacinDrug Uzqukkk68-15-5870whwnwJdjOhioHealth Pickerington [facility] Repository (2 sources)MeperidineDrug Agzuxzb57-14-6411Mth [facility] Repository (2 sources)Darvocet-N 100Drug allergy (disorder)55-73-1628Tkq [facility] Repository (6 sources)Acetaminophen / oxyCODONEDrug AllergyUnkWebstepYakima Valley Memorial Hospital [employer] Other (6 sources)Acetaminophen / PropoxypheneDrug AllergyUnkWebstepMercy Hospital South, [facility] [employer] Other (10 sources)Meperidine; Translations: [MEPERIDINE]Drug Clellgn49-14-5779NkoirvdMetroHealth Main Campus Medical Center (8 sources)SimvastatinDrug Musmmzj35-98-5344TqpzjitRegency Hospital [facility] West (1 source)Tylenol-Codeine #3Drug allergy (disorder)[facility] Repository (5 sources)Allergies ReconciledPropensity to adverse reactionsUnknownNorth [employer] Other (5 sources)patient allergy list reviewed by nurse or physiciaPropensity to adverse wakudlxyw17-20-9005Pvuddgi:[facility] [employer] Other (5 sources)Darvocet A500 *ANALGESICS - OPIOID*Propensity to adverse reactions 53-67-9578QxgsmwwBgmmo [employer] Other (2 sources)Acetaminophen; Translations: [acetaminophen]Drug Juellii06-62-2100 [facility] (5 sources)levoFLOXacin; Translations: [levofloxacin]Drug Qjecvch18-23-3858QslhqMartin Memorial Hospital (4 sources)oxyCODONE; Translations: [oxycodone]Drug Jhxkghi90-59-1809AzcbwoavSumma Health (4 sources)Propoxyphene; Translations: [propoxyphene]Drug Oalhtoi22-00-6301 [facility] (1 source)MeperidineDrug Xqncugc01-77-1026DjefedufqCoshocton Regional Medical Center Repository (2 sources)Darvocet A500 *ANALGESICS - OPAllergy to qzonqrfwj38-93-0288TnwhjMartin Memorial HospitalComment on above:Free Text Allergy: Darvocet A500 *ANALGESICS - OPIOID*; Onset Date: 10/27/2016 (5 sources)Acetaminophen / oxyCODONE; Translations: [OXYCODONE-ACETAMINOPHEN] Drug Zchktol95-44-7862MG intoleranceMercy Hospital Washington (4 sources)MeperidineDrug Xzlcdfw58-86-0266AO intoleranceMercy Hospital Washington (1 source)PROPOXYPHENE N-ACETAMINOPHEN; Translations: [PROPOXYPHENE N-ACETAMINOPHEN]Propensity to adverse reactions to drug (disorder)12-15-2013 [facility] Repository Medications Current Medications MedicationDrug Class(es)DatesSig (Normalized)Sig (Original)aspirin 81 mg oral tablet (1 source)Platelet Aggregation Inhibitor, Nonsteroidal Anti-inflammatory Drug Start: 02-56-5548zuxr 1 tablet by mouth once dailyAspirin 81 mg tablet Active 81 MG PO Daily May 24, 2025 12:00am Complies with drug hpekdvs87 hr buPROPion hydrochloride 300 mg extended release oral tablet (20 sources)AminoketoneStart: 08-72-7035vbye 1 tablet by mouth once daily in the morningBupropion Hcl (Wellbutrin Xl) 300 mg tablet extended release 24 hr Active 300 MG PO Every morning May 24, 2025 12:00am Complies with drug therapyStart: 08-23-2024 End: 49-38-7094bicx 1 tablet by mouth twice dailyBupropion Hcl 100 mg tablet Discontinued 100 MG PO Twice daily August 23, 2024 12:00am May 24, 2025 4:19pmStart: 83-51-4725ioLPCJlrv HCl 100MG BuPROPion HCl( 100MG Oral 2 times daily ) Active -Hx Entry Oral 2 times daily for 0 *Pick strength-form from [employer] for eRX* Jun, Activeclopidogrel 75 mg oral tablet (4 sources)P2Y12 Platelet InhibitorStart: 73-20-9618whzq 1 tablet by mouth once dailyClopidogrel (Plavix) 75 mg tablet Active 75 MG PO Daily May 24, 2025 12:00am Complies with drug therapyStart: 12-01-2023 End: 56-16-7198rjxm 1 tablet by mouth once dailyclopidogrel (Plavix) 75 MG tablet Take 75 mg by mouth Daily 12/01/2023 11/30/2024 Nenglu26 hr dilTIAZem hydrochloride 240 mg extended release oral capsule (20 sources)Calcium Channel BlockerStart: 57-84-8952usrj 1 mg by mouth every twenty-four hoursDiltiazem Hcl (Cartia Xt) 240 mg capsule,extended release 24hr Active MG PO May 24, 2025 12:00amComplies with drug therapyStart: 08-23-2024 End: 93-37-3643iija 1 capsule by mouth once daily, then take 1 capsule by mouth every twenty-four hoursDiltiazem Hcl (Cardizem Cd) 240 mg capsule,extended release 24hr Discontinued 240 MG PO Daily August 23, 2024 12:00am August 23, 2024 11:19amStart: 08-23-2024 End: 05-05-1776ekey 2 tablets by mouth once dailyDiltiazem Hcl 120 mg tablet Discontinued 120 MG PO Daily August 23, 2024 11:19am May 2454:19pm FreeTextSi tablets Orally daily; Note: Source Status: Takingtotal of 240 mg; Provider: Robel Stewart ( )Start: 08-23-2024 End: 00-83-3645zmyd 2 tablets by mouth once dailyDiltiazem Hcl Discontinued 2 TAB PO Daily August 23, 2024 12:00am August 23, 2024 11:20am FreeTextSi tablets Orally daily; Note: Source Status: Takingtotal of 240 mg; Provider: Robel Stewart ( )Start: 12-01-2023 End: 39-38-8435mdgy 1 capsule by mouth in the morning, then take 1 capsule by mouth every twenty-four hoursdilTIAZem CD (Cardizem CD) 120 MG 24 hr capsule Take 120 mg by mouth in the morning. 12/01/2023 ActiveStart: 84-17-9995mwbh 240 mg by mouth once dailyCardizem CD 240MG Cardizem CD( 240MG Oral daily ) Active - Hx Entry Oral daily for 0 *Pick strength-form from [employer] for eRX* Jun, Activetake 2 tablets by mouth every twenty-four hoursCardizem 120 MG 2 tablets Orally daily total of 240 mg ActiveDULoxetine 30 mg delayed release oral capsule (20 sources)Serotonin and Norepinephrine Reuptake InhibitorStart: 08-23-2024 End: 36-52-8159serx 1 capsule by mouth once dailyDuloxetine (Cymbalta) 30 mg capsule,delayed release(DR/EC) Active 30 MG PO Daily August 232:00am Complies with drug therapyhydroCHLOROthiazide 25 mg oral tablet (5 sources)Thiazide DiureticStart: 12-01-2023 End: 36-99-6977nzmm 1 tablet by mouth once dailyHydrochlorothiazide 25 mg tablet Active 25 MG PO Daily May 24, 2025 12:00am Complies with drug therapy metoprolol tartrate 25 mg oral tablet (5 sources)beta-Adrenergic BlockerStart: 12-01-2023 End: 27-90-0803oueo 1 tablet by mouth once dailyMetoprolol Tartrate 25 mg tablet Active 25 MG PO Daily May 24, 2025 12:00am Complies with drug therapy nitroglycerin 0.4 mg sublingual tablet (5 sources)Nitrate VasodilatorStart: 39-14-1088ziwf 1 tablet under the tongue onceNitroglycerin 0.4 mg tablet, sublingual Active 0.4 MG SUBLINGUAL Once May 24, 2025 12:00am Complies with drug therapynitroglycerin (Nitrostat) 0.[address] 0.4 mg under the tongue every 5 (five) minutes if needed for chest pain Activerosuvastatin calcium 40 mg oral tablet (5 sources)HMG-CoA Reductase InhibitorStart: 12-01-2023 End: 28-80-8606yjbz 1 tablet by mouth once dailyRosuvastatin 40 mg tablet Active 40 MG PO Daily May 24, 2025 12:00am Complies with drug therapy Completed/Discontinued Medications MedicationDrug Class(es)DatesSig (Normalized)Sig (Original)citalopram 20 mg oral tablet (7 sources)Serotonin Reuptake InhibitorStart: 08-23-2024 End: 12-75-9690Ancomwfqxi 20 mg tablet Discontinued MG PO August 23, 2024 12:00am May 24, 2025 4:19pm FreeTextSig: Citalopram Hydrobromide( 20MG Oral 2 times daily ) Active -Hx Entry Oral 2 times daily; Note:Source Status: Taking*Pick strength-form from [employer] for eRX*; Provider: Robel Stewart ( )Start: 81-68-7336Hzoevfhzlr Hydrobromide 20MG Citalopram Hydrobromide( 20MG Oral 2 times daily ) Active -Hx Entry Oral 2 times daily for 0 *Pick strength-form from [employer] for eRX* Jun, Pgjonz34 hr isosorbide mononitrate 60 mg extended release oral tablet (19 sources)Nitrate VasodilatorStart: 08-23-2024 End: 12-71-7941ddol 1 tablet by mouth once daily in the morningIsosorbide Mononitrate 60 mg tablet extended release 24 hr Discontinued 1 TAB PO Daily August 23, 2024 12:00am August 23, 2024 11:20am FreeTextSi tablet in the morning Orally Once a day; Note: Source Status: Vsllti140 mg; Provider: Robel Stewart ( )Start: 12-01-2023 End: 37-05-0024nzja 1 tablet by mouth in the morning, then take 1 tablet by mouth every twenty-four hoursisosorbide mononitrate ER (Imdur) 120 MG 24 hr tablet Take 120 mg by mouth in the morning. 12/01/2023 ActiveStart: 06-26-2022 Imdur 120MG Imdur( 120MG Oral ) Active -Hx Entry Oral for 0 *Reorder from [facility] for eRx and Interaction Alerts* Jun, Activetake 1 tablet by mouth once daily in the morningImdur 60 MG 1 tablet in the morning Orally Once a day 120 mg Active Problems Active Problems Problem ClassificationProblemDateDocumented DateEpisodic/ChronicAnxiety disorders (6 sources)Generalized anxiety disorder; Translations: [Generalized anxiety disorder]ChronicConduction disorders (5 sources)Pre-excitation syndrome; 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]Onset: 61-01-3166KydouhrIaklaiuhi of lipid metabolism (9 sources)Hyperlipidemia, unspecified; Translations: [Hyperlipidemia]Onset: 43-10-1973SmxmdujSgljy of unknown origin (5 sources)Fever, unspecified; Translations: [Fever]EpisodicHeadache; including migraine (6 sources)Tension-type headache; Translations: [Tension-type headache, unspecified, not intractable]Onset: 122432-79-8707OkrhkofRgzvncghi disorders (10 sources)Excessive and frequent menstruation with regular cycle; Translations: [Intermenstrual bleeding - irregular] Resolved: 93-48-5157AkeujdnNvhqiaorvufzg mental health disorders (6 sources)Primary insomnia; Translations: [Primary insomnia]Onset: 02-28-2024 12-93-8324HpoesxmZcqv disorders (6 sources)Moderate recurrent major depression; Translations: [Major depressive disorder, recurrent, moderate]ChronicOpen wounds of head; neck; and trunk (5 [...] (4 sources)Cerebrovascular disease; Translations: [Cerebrovascular disease, unspecified]Onset: 971601-32-3831NrvkfucEgytt connective tissue disease (1 source)Pain in right hand; Translations: [Pain in right hand]EpisodicOther connective tissue disease (4 sources)Pain in right hand; Translations: [Pain in right hand]EpisodicOther eye disorders (5 sources)Dilated pupil; 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]ChronicOther eye disorders (6 sources)Anisocoria; 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]Onset: 138178-69-6604 ChronicOther non-traumatic joint disorders (1 source)Pain in left hip; Translations: [Pain in left hip]EpisodicOther non- traumatic joint disorders (4 sources)Arthralgia of the pelvic region and thigh; Translations: [Pain in left hip]EpisodicOther non-traumatic joint disorders (2 sources)Hip pain; Translations: [Pain in right hip]71-74-6952RojjpejrUwncc non-traumatic joint disorders (1 source)Pain in right hip; Translations: [Pain in joint, pelvic region and thigh]89-44-1207QtkngkdhUqwlf nutritional; endocrine; and metabolic disorders (1 source)Body mass index (BMI) 36.0-36.9, adult; Translations: [Body mass index (BMI) 36.0-36.9, adult]ChronicOther nutritional; endocrine; and metabolic disorders (5 sources)Obese class I; Translations: [Body mass index 32.0-32.9, adult]Onset: 54-55-6546JuzyrifEgebz nutritional; endocrine; and metabolic disorders (4 sources)Obese class II; Translations: [Body mass index (BMI) 36.0-36.9, adult]ChronicOther screening for suspected conditions (not mental disorders or infectious disease) (10 sources)Abnormal findings on diagnostic imaging of other specified body structures; Translations: [MRI scanabnormal]Onset: 95-42-2613XgvqniyLzfri screening for suspected conditions (not mental disorders or infectious disease) (20 sources)Encounter for screening mammogram for malignant neoplasm of breast; Translations: [Urine test negative]Onset: 02-71-7487VazxgcezHtbyz skin disorders (5 sources)Acne vulgaris; Translations: [Acne [...] pain; Translations: [Pelvic and perineal pain] Resolved: 29-89-4687UmebpckuEmioksic reactions (5 sources)Unspecified contact dermatitis due to other agents; Translations: [Contact dermatitis]Onset: 47-94-3053CuwxjuctIxidbvlibm associated with dizziness or vertigo (6 sources)Vertigo; Translations: [Dizziness and giddiness]Onset: 02-28-2024 69-59-4480HrckpvluXoolaihh; including migraine (4 sources)Tension-type headache; Translations: [Tension-type headache, unspecified, intractable]Onset: 782594-34-8589XgzsegotIcvmgpn and fatigue (1 source)Other fatigue; Translations: [OTHER FATIGUE]Onset: 55-60-5870Xchrwlew Mycoses (5 sources)Candidiasis, unspecified; Translations: [Candidiasis]Onset: 84-77-1948QffcruvnTohkfjtdwcc chest pain (18 sources)Non-cardiac chest pain; Translations: [Other chest pain]Onset: 43-67-7572UpyjteupDezqu circulatory disease (4 sources)Other specified symptoms and signs involving the circulatory and respiratory systems; Translations:[OTH SPEC SX SIGNS INVLV CIRC RS]Onset: 04-88-7816BjptdfnoKollw complications of (1 source)Supervision of high risk , unspecified, unspecified trimester; Translations: [Supervision of high risk , unspecified, unspecified trimester]Onset: 58-08-0713LahqsjjaFttqg complications of (4 sources)High risk ; Translations: [Supervision of high risk , unspecified, unspecified trimester]Onset: 62-72-0648KwhwytrjAvnhf eye disorders (4 sources)Fundoscopy abnormal; Translations: [Unspecified disorder of eye and adnexa]Onset: 589551-12-4165UnghhinzQyjht liver diseases (4 sources)Elevated levels of transaminase & lactic acid dehydrogenase; Translations: [Nonspecific elevation of levels of transaminase or lactic acid dehydrogenase (LDH)]Onset: 48-57-4488UxoumigvQqpmc lower respiratory disease (2 sources)Shortness of breath; Translations: [Shortness of breath]Onset: 61-99-7592ArdlgihmQdwrz nervous system disorders (6 sources)Tremor; Translations: [Tremor, unspecified]Onset: 02-28-2024 59-32-2398AjgozqheMzbyh non-traumatic joint disorders (5 sources)Shoulder joint pain; Translations: [Pain in right shoulder]Onset: 27-06-4635VuctzlqrCqjcd and delivery including normal (1 source)Encounter for routine follow-up; Translations: [Encounter for routine follow-up]Onset: 59-25-5212MphuizpmOrjbgubwg; thrombophlebitis and thromboembolism (5 sources)Embolism from thrombosis of vein of distal lower extremity; Translations: [Acute venous embolism and thrombosis of unspecified deep vessels of lower extremity]Onset: 10-44-8592NbaegdheYapdqyptgnp; intervertebral disc disorders; other back problems (5 sources)Cervical disc disorder with radiculopathy; Translations: [Cervical disc disorder with radiculopathy, cervicothoracic region]Onset: 06-20-2018 EpisodicThyroid disorders (5 sources)Disorder of thyroid, unspecified; Translations: [Disorder of thyroid gland]Onset: 16-78-4884LkuzpjwjJizulhgloejs (5 sources)Surveillance of intrauterine device contraception done; Translations: [Surveillance of previously prescribed intrauterine contraceptive device]Onset: 52-66-2893Rjwwzqketsjb (5 sources)Encounter for insertion or removal of intrauterine contraceptive device; Translations: [Encounter for insertion or removal of intrauterine contraceptive device]Onset: 09-05-2009 Results Test NameValueInterpretationReference NcslwLyqnghmj87hy 21-08-805171Oedwitv had labs drawn 08/22 for routine wellness. Her K was very low so she was advised to go to the ED. She said the ED doc gave her 4 days worth of potassium chloride. It was checked again today and results are scanned into digital associate media director for your review. Did you want to give her more potassium? It's still low. Please advise. Thanks.[facility]36on Regarding stress test result from 05/28/2025: Vidhi Anderson MD to Me (Selected Message) EE 06/05/25 7:55 AM Please reassure her stress test is normal Thanks Patient made aware.[facility] HospitalOrders Onlyon 18-72-9785Umphkc [id number] Elvia Fox Alexy 1975 F Date Provider Department Center 06/04/2025 [id number], HISTORICAL BEATA [facility] Family History Problem Relation Age of Onset Supraventricular tachycardia Mother Heart disease Father Supraventricular tachycardia Sister Heart disease Paternal Grandmother Heart disease Paternal Grandfather Family Status - Relation Status Age at Mother Father Sister Paternal Grandmother Paternal GrandfatherNParkview Health Bryan HospitalOffice Visiton 76-77-8870Hjcnzt-up [id number] Leslie Foxecca Alexy 1975 F Date Provider Department Center 05/03/2025 271-VIDHI ANDERSON Family History Problem Relation Age of Onset Supraventricular tachycardia Mother Heart disease Father Supraventricular tachycardia Sister Heart disease Paternal Grandmother Heart disease Paternal Grandfather Family Status - Relation Status Age at Mother Father Sister Paternal Grandmother Paternal Grandfather Level of Service:63777 [place] OFFICE/OUTPATIENT ESTABLISHED MOD MDM [address] [facility] CenterMRI HEAD/BRAIN WO/W CONTRon 95-35-0111[address] [address] Magnetic Resonance Report Signed Patient: ELVIA FOX MR#: [id number] : 1975 Acct:[id number] Age/Sex: 48 / F ADM Date: 03/16/24 Loc: MRI Attending Dr: Harlan Niño NP Ordering Physician: Harlan Niño NP Date of Service: 03/16/24 Procedure(s): MR head/brain wo/w con Accession Number(s): [id number] cc: Pat Huston M.D.; Harlan Niño NP [place] [address] Patient Name: ELVIA FOX MRN: [facility]:[id number] date: 1975 Sex: F Assigned Patient Location: MRI Current Patient Location: MRI Accession/Order Number: [id number] Exam Date: 03/16/2024 16:00 Report Date: 03/16/2024 [...] M.D. Signed By: 03/16/241705 DD/ 03 TD/TT: Cook Dinner:TBHRadiology, Radiologist, - 03/16/2024 [place] [address] Magnetic Resonance Report Signed Patient: ELVIA FOX MR#: [id number] : 1975 Acct:[id number] Age/Sex: 48 / F ADM Date: 03/16/24 Loc: MRI Attending Dr: Harlan Niño NP Ordering Physician: Harlan Niño NP Date of Service: 03/16/24 Procedure(s): MR head/brain wo/w con Accession Number(s): [id number] cc: Pat Huston M.D.; Harlan Niño NP [facility] [place] [address] Patient Name: ELVIA FOX MRN: [facility]:[id number] date: 1975 Sex: F Assigned Patient Location: MRI Current Patient Location: MRI Accession/Order Number: [id number] Exam Date: 03/16/2024 16:00 Report Date: 03/16/2024 [...] M.D. Signed By: 03/16/241705 DD/ 03 TD/TT: Cook Dinner: [facility] WashingtonRad[facility] Study observation (narrative)[facility]/W CONTROrdered By: Radiologist Radiology on 29-43-6351HUQM [employer] Work Phone: MR breast BI wo/w con CADon 84-27-6445GU breast BI wo/w con [facility] [place] [address] MRI Report Signed Patient: Elvia Fox MR#: [id number] : 1975 Acct:[id number] Age/Sex: 48 / F ADM Date: 09/07/23 Loc: Room: Type: [facility] Attending Dr: Pat Huston MD Copies to: [...] All imaged data was reviewed using the [employer] system. The postcontrast images were subtracted and [...] Waite Jr., D.OLinda09/07/2023 11:47 AM Dictation Location: [place] [address] Transcribed By: [facility] 09/07/23 1147 Dictated By: Bunny Waite Jr, DO 09/07/23 1138 Signed By: 09/07/23 1147[facility] HospitalMRI BRAIN WO W CONon 90-28-9438BYP BRAIN WO W CONEXAMINATION: MRI BRAIN WO [...] Electronically authenticated by: EDILSON JOHN Date: 2023-02-16 10:16[facility] Memorial HospitalLIPID PROFILEon 16-12-6790VROM-HDL RATIO NORMSEE [facility] HospitalComment on above:Result Comment: 3.3 - 4.4 LOW RISK 4.4 - 7.1 AVERAGE RISK 7.1 - 11.0 MODERATE RISK >11.0 HIGH RISKPerformed By: #### CMP, TSH, LIPID #### [facility] [address] [place] [address] [address] David ZapataCholesterol [Mass/Vol]120 mg/dLNormal<=200The [facility] Comment on above:Performed By: #### CMP, TSH, LIPID #### [facility] [address] [place] [address] Dr. David ZapataCholesterol in HDL [Mass/Vol]54 mg/qJJpxhya12-15KdoCrystal Clinic Orthopedic CenterComment on above:Performed By: #### CMP, TSH, LIPID #### [facility] [address] [place] [address] Dr. David ZapataCholesterol in LDL [Mass/Vol]45.6 mg/dLMcCullough-Hyde Memorial HospitalComment on above:Performed By: #### CMP, TSH, LIPID #### [facility] [address] [place] [address] Dr. David Suarezestermaciej.total/Cholesterol in HDL [Mass ratio]2.2 {ratio} NormalCrystal Clinic Orthopedic CenterComment on above:Performed By: #### CMP, TSH, LIPID #### [facility] [address] [place] [address] Dr. David ZapataHDL NORMAL> or = 60 mg/dl - LOW CARDIOVASCULAR RISK <40 mg/dl - HIGH CARDIOVASCULAR RISKMcCullough-Hyde Memorial HospitalComment on above:Performed By: #### CMP, TSH, LIPID #### [facility] [address] [place] [address] Dr. David ZapataLDL CALC NORMALSEE [facility] HospitalComment on above:Result Comment: <100 mg/dl OPTIMAL 100 - 129 mg/dl NEAR OR ABOVE OPTIMAL 130 - 159 mg/dl BORDERLINE HIGH 160 - 189 mg/dl HIGH >190 mg/dl VERY HIGH Performed By: #### CMP, TSH, LIPID #### [facility] [address] [place] [address] Dr. David ZapataTriglyceride [Mass/Vol]102 mg/dLNormal<=150The [facility] Comment on above:Performed By: #### CMP, TSH, LIPID #### [facility] [address] [place] [address] Dr. David ZapataVLDL CALC20.4 mg/dLNormalThe [facility] CenterComment on above: Performed By: #### CMP, TSH, LIPID #### [facility] [address] [place] [address] Dr. David Cheatham PROFILEon 37-32-8207Yhuiafy [Mass/Vol]3.4 g/dLNormal3.4-5.0 The [facility] CenterComment on above:Performed By: #### CMP, TSH, LIPID #### [facility] [address] [place] [address] Dr. David ZapataAlbumin/Globulin [Mass ratio]1.0 {ratio}NormalThe [facility] Medical CenterComment on above:Performed By: #### CMP, TSH, LIPID #### [facility] [address] [place] [address] Dr. David Crockett [Catalytic activity/Vol]51 U/BMouwvq03-455Iki [facility] CenterComment on above:Performed By: #### CMP, TSH, LIPID #### [facility] [address] [place] [address] Dr. David Szymanski [Catalytic activity/Vol]32 U/XPvwesu16-24Vfd [facility] on above:Performed By: #### CMP, TSH, LIPID #### [facility] [address] [place] [address] Dr. David Gamino [Catalytic activity/Vol]18 U/MEcogce93-83Bff [facility] CenterComment on above:Performed By: #### CMP, TSH, LIPID #### [facility] [address] [place], [place] [address] Dr. David Xie, CONJUGATED0.1 mg/dLNormal0.0-0.2[facility] Comment on above:Performed By: #### CMP, TSH, LIPID #### [facility] [address] [place] [address] Dr. David Mcknightirubin [Mass/Vol]0.4 mg/dLNormal0.2-1.0[facility] Comment on above:Performed By: #### CMP, TSH, LIPID #### [facility] [address] [place] [address] Dr. David ZapataGlobulin (S) [Mass/Vol]3.5 g/dLNormalThe [facility] CenterComment on above:Performed By: #### CMP, TSH, LIPID #### [facility] [address] [place] [address] Dr. David ZapataProtein [Mass/Vol]6.9 g/dLNormal6.4-8.2[facility] Comment on above:Performed By: #### CMP, TSH, LIPID #### [facility] [address] [place] [address] Dr. David Kellogg AUTO DIFFon [id number] #0.0 103/ulNormal0.0-0.1[facility] CenterComment on above:Performed By: #### CBC #### [facility] [address] [place] [address] Dr. David ZapataBasophils/100 WBC (Bld)0.4 %Normal0.2-2.0[facility] Comment on above:Performed By: #### CBC #### [facility] [address] [place] [address] Dr. David Henry #0.3 103/ulNormal0.0-0.7The [facility] CenterComment on above: Performed By: #### CBC #### [facility] [address] [place] [address] Dr. David Chavisosinophils/100 WBC (Bld)3.4 %Normal0.9-7.0The [facility] Comment on above:Performed By: #### CBC #### [facility] [address] [place] [address] Dr. David Chavisrythrocyte distribution width (RBC) [Ratio]12.0 %Pvjeqj23.0-15.0 The [facility] CenterComment on above:Performed By: #### CBC #### [facility] [address] [place] [address] Dr. David ZapataHematocrit (Bld) [Volume fraction]44.2 %Vzzlcs25.0-48.0The [facility] CenterComment on above:Performed By: #### CBC #### [facility] [address] [place] [address] Dr. David ZapataHemoglobin (Bld) [Mass/Vol]14.0 g/kUPkkfyq17.0-16.0[facility] CenterComment on above:Performed By: #### CBC #### [facility] [address] [place] [address] Dr. David Rubio #0.04 10e3/ulCritically high0.00-0.03The [facility] Comment on above:Performed By: #### CBC #### [facility] [address] [place] [address] Dr. David Rubio %0.5 %Normal0.0-0.5The [facility] CenterComment on above: Performed By: #### CBC #### [facility] [address] [place] [address] Dr. David Barnhart #2.3 103/ulNormal1.2-3.8The [facility] CenterComment on above:Performed By: #### CBC #### [facility] [address] [place] [address] Dr. David Guevarahocytes/100 WBC (Bld)28.7 %Drkbcz00.5-60.0The [facility] CenterComment on above:Performed By: #### CBC #### [facility] [address] [place] [address] Dr. David HanksUAL DIFF REQNONormalThe [facility] CenterComment on above: Performed By: #### CBC #### [facility] [address] [place] [address] Dr. David León (RBC) [Entitic mass]29.2 znKyxmrb76.7-34.0The [facility] CenterComment on above:Performed By: #### CBC #### [facility] [address] [place] [address] Dr. David León (RBC) [Mass/Vol]31.7 g/gAGfskax25.9-35.2The [facility] HospitalComment on above:Performed By: #### CBC #### [facility] [address] [place] [address] Dr. David León (RBC) [Entitic vol]92.1 wEMhgotf31.0-99.0The [facility] CenterComment on above:Performed By: #### CBC #### [facility] [address] [place] [address] Dr. David Arellano #0.6 103/ulNormal0.3-0.8The [facility] CenterComment on above:Performed By: #### CBC #### [facility] [address] [place] [address] Dr. David Sureshocytes/100 WBC (Bld)7.3 %Normal1.7-12.0The [facility] Comment on above:Performed By: #### CBC #### [facility] [address] [place] [address] Dr. David Noble #4.8 103/ulNormal1.4-6.5The [facility] CenterComment on above:Performed By: #### CBC #### [facility] [address] [place] [address] Dr. David Cavazosutrophils/100 WBC (Bld)59.7 %Edcnjd60.0-75.0The [facility] CenterComment on above:Performed By: #### CBC #### [facility] [address] [place] [address] Dr. David Maldonadolet mean volume (Bld) [Entitic vol]9.4 fLCritically low 9.5-13.5The [facility] on above:Performed By: #### CBC #### [facility] [address] [place] [address] Dr. David ArayaT308 103/hwFxmodn255-910Lhd [facility] on above: Performed By: #### CBC #### [facility] [address] [place] [address] Dr. David ZapataRBC4.80 106/ulNormal4.20-5.40The [facility] on above:Performed By: #### CBC #### [facility] [address] [place] [address] Dr. David ZapataWBC8.0 103/ulNormal4.0-11.0The [facility] on above: Performed By: #### CBC #### [facility] [address] [place] [address] Dr. David ArroyoID PROFILEon 70-18-5743EMFE-HDL RATIO NORMSEE [facility] HospitalCommymichigan medical center on above:Result Comment: 3.3 - 4.4 LOW RISK 4.4 - 7.1 AVERAGE RISK 7.1 - 11.0 MODERATE RISK >11.0 HIGH RISKPerformed By: #### CMP, TSH, LIPID #### [facility] [address] [place] [address] Dr. David ZapataCholesterol [Mass/Vol]203 mg/dLCritically high<=200The [facility] on above:Performed By: #### CMP, TSH, LIPID #### [facility] [address] [place] [address] Dr. David ZapataCholesterol in HDL [Mass/Vol]57 mg/fDGefvru21-24Dac [facility] on above:Performed By: #### CMP, TSH, LIPID #### [facility] [address] [place] [address] Dr. David Suarezesterol in LDL [Mass/Vol]120.4 mg/dLNormalThe [facility] HospitalComment on above:Performed By: #### CMP, TSH, LIPID #### [facility] [address] [address] [address] David ZapataCholesterol.total/Cholesterol in HDL [Mass ratio]3.6 {ratio} NormalThe [facility] CenterComment on above:Performed By: #### CMP, TSH, LIPID #### [facility] [address] [address] [address] David Garcia NORMAL> or = 60 mg/dl - LOW CARDIOVASCULAR RISK <40 mg/dl - HIGH CARDIOVASCULAR RISKMcCullough-Hyde Memorial HospitalComment on above:Performed By: #### CMP, TSH, LIPID #### [facility] [address] [address] [address] David ZapataLDL CALC NORMALSEE BELOWMcCullough-Hyde Memorial HospitalComment on above:Result Comment: <100 mg/dl OPTIMAL 100 - 129 mg/dl NEAR OR ABOVE OPTIMAL 130 - 159 mg/dl BORDERLINE HIGH 160 - 189 mg/dl HIGH >190 mg/dl VERY HIGH Performed By: #### CMP, TSH, LIPID #### [facility] [address] [address] [address] David ZapataTriglyceride [Mass/Vol]128 mg/dLNormal<=150The [facility] Comment on above:Performed By: #### CMP, TSH, LIPID #### [facility] [address] [address] [address] David ZapataVLDL CALC25.6 mg/dLNoTrinity Health System Twin City Medical CenterComment on above: Performed By: #### CMP, TSH, LIPID #### [facility] [address] [address] [address] David ZapataPROKareem 14(COMP METB)on 01-35-9991Xyrggfo [Mass/Vol]3.5 g/dLNormal 3.4-5.0The [facility] CenterComment on above:Performed By: #### CMP, TSH, LIPID #### [facility] [address] [address] [address] David ZapataAlbumin/Globulin [Mass ratio]1.0 {ratio}NormalThe [facility] HospitalComment on above:Performed By: #### CMP, TSH, LIPID #### [facility] [address] [place] [address] Dr. David Crockett [Catalytic activity/Vol]68 U/TGqkwhq65-424Jcd [facility] CenterComment on above:Performed By: #### CMP, TSH, LIPID #### [facility] [address] [place] [address] Dr. David Szymanski [Catalytic activity/Vol]28 U/STrworp36-76Bka [facility] CenterComment on above:Performed By: #### CMP, TSH, LIPID #### [facility] [address] [place] [address] Dr. David Nguyen gap [Moles/Vol]11.3 mmol/LNormalThe [facility] Comment on above:Performed By: #### CMP, TSH, LIPID #### [facility] [address] [place] [address] Dr. David Gamino [Catalytic activity/Vol]18 U/AHfxaik20-60Oiz [facility] CenterComment on above:Performed By: #### CMP, TSH, LIPID #### [facility] [address] [place] [address] Dr. David ZapataBilirubin [Mass/Vol]0.4 mg/dLNormal0.2-1.0[facility] Comment on above:Performed By: #### CMP, TSH, LIPID #### [facility] [address] [place] [address] Dr. David ZapataCalcium [Mass/Vol]8.8 mg/dLNormal8.5-10.1[facility] Comment on above:Performed By: #### CMP, TSH, LIPID #### [facility] [address] [place] [address] Dr. David Vuongide [Moles/Vol]103 mmol/CJqlinn31-363Rwo [facility] Comment on above:Performed By: #### CMP, TSH, LIPID #### [facility] [address] [place] [address] Dr. David ZapataCO2 [Moles/Vol]28.4 mmol/BWgemnp60.0-32.0[facility] Comment on above:Performed By: #### CMP, TSH, LIPID #### [facility] [address] [address] [address] David ZapataCreatinine [Mass/Vol]0.96 mg/dLNormal0.55-1.02The [facility] CenterComment on above:Performed By: #### CMP, TSH, LIPID #### [facility] [address] [place] [address] Dr. David ChavisGFR-AF MONEGASQUE>60Normal>=60The [facility] CenterComment on above:Performed By: #### CMP, TSH, LIPID #### [facility] [address] [place] [address] Dr. David Mccallum-NON AF MONEGASQUE>60Normal>=60The [facility] CenterComment on above:Performed By: #### CMP, TSH, LIPID #### [facility] [address] [place] [address] Dr. David ZapataGlobulin (S) [Mass/Vol]3.5 g/dLNormalThe [facility] CenterComment on above:Performed By: #### CMP, TSH, LIPID #### [facility] [address] [place] [address] Dr. David ZapataGlucose [Mass/Vol]94 mg/eMIpvkai83-576AxqC[facility] Clinic [facility] Comment on above:Performed By: #### CMP, TSH, LIPID #### [facility] [address] [place] [address] Dr. David ZapataPotassium [Moles/Vol]3.7 mmol/LNormal3.5-5.1The [facility] Comment on above:Performed By: #### CMP, TSH, LIPID #### [facility] [address] [place] [address] Dr. David ZapataProtein [Mass/Vol]7.0 g/dLNormal6.4-8.2The [facility] Comment on above:Performed By: #### CMP, TSH, LIPID #### [facility] [address] [address] [address] David ZapataSodium [Moles/Vol]139 mmol/CElslip389-469Ica [facility] Comment on above:Performed By: #### CMP, TSH, LIPID #### [facility] [address] [address] [address] David ZapataUrea nitrogen [Mass/Vol]8.0 mg/dLNormal7.0-18.0The [facility] CenterComment on above:Performed By: #### CMP, TSH, LIPID #### [facility] [address] [address] [address] David ZapataUrea nitrogen/Creatinine [Mass ratio]8.3 mg/mgNormalThe [facility] CenterComment on above:Performed By: #### CMP, TSH, LIPID #### [facility] [address] [place] [address] Dr. David ZapataTSHon 15-21-5992ZIG2.557 uIU/mLNormal0.358-3.740The [facility] CenterComment on above:Performed By: #### CMP, TSH, LIPID #### [facility] [address] [address] [address] David ZapataVITAMIN B12on 99-33-1596Zyfcwyvlc (Vitamin B12) [Mass/Vol]247.0 pg/mGOanwgh290.0-986.0The [facility] CenterComment on above:Performed By: #### VITB12 #### [facility] [address] [place] [address] Dr. David ZapataNM STRESS/REST MULTIon 90-65-0823CO STRESS/REST MULTIPatient: ELVIA FOX Exam Date: 11/04/2022 : 1975 Gender:F Ordering : DR VIDHI ANDERSON M.D. Admission #: [id number] Family : Order #: [id number] CLICK HERE TO VIEW EXAM RADIOLOGY REPORT [...] Edilson John M.D. on 11/05/2022 at 11:01[facility] MAMM SCREEN 3D AMANUEL CADon 75-52-9962RO MAMM SCREEN 3D AMANUEL CADPatient: ELVIA FOX Exam Date: 07/10/2022 : 1975 Gender:F Ordering : DR PAT HUSTON M.D. Admission #: [id number] Family : Order #: [id number] CLICK HERE TO VIEW EXAM RADIOLOGY REPORT [...] Treatments None Family Cancers None LOCATION: [facility] BREAST COMPOSITION: Heterogeneously dense,which may [...] by: Nilesh Deutsch MD on 07/10/2022 at 08:04[facility]ThBl[facility] AUTO DIFFon [id number] #0.0 103/ulNormal0.0-0.1[facility] CenterComment on above:Performed By: #### CBC #### [facility] [address] [place] [address] Dr. David ZapataBasophils/100 WBC (Bld)0.5 %Normal0.2-2.0[facility] Comment on above:Performed By: #### CBC #### [facility] [address] [place] [address] Dr. David Henry #0.3 103/ulNormal0.0-0.7The [facility] CenterComment on above: Performed By: #### CBC #### [facility] [address] [place] [address] Dr. David Chavisosinophils/100 WBC (Bld)3.4 %Normal0.9-7.0[facility] Comment on above:Performed By: #### CBC #### [facility] [address] [place] [address] Dr. David Chavisrythrocyte distribution width (RBC) [Ratio]12.1 %Qpqwlj68.0-15.0 [facility] CenterComment on above:Performed By: #### CBC #### [facility] [address] [place] [address] Dr. David ZapataHematocrit (Bld) [Volume fraction]40.6 %Tqnbhm82.0-48.0[facility] CenterComment on above:Performed By: #### CBC #### [facility] [address] [place] [address] Dr. David ZapataHemoglobin (Bld) [Mass/Vol]13.5 g/vSQkvnfk38.0-16.0The [facility] on above:Performed By: #### CBC #### [facility] [address] [place] [address] Dr. David Rubio #0.03 10e3/ulNormal0.00-0.03The [facility] CenterComment on above:Performed By: #### CBC #### [facility] [address] [place] [address] Dr. David Rubio %0.4 %Normal0.0-0.5The [facility] CenterCommymichigan medical center on above: Performed By: #### CBC #### [facility] [address] [place] [address] Dr. David Barnhart #2.1 103/ulNormal1.2-3.8The [facility] CenterComment on above:Performed By: #### CBC #### [facility] [address] [place] [address] Dr. David Guevarahocytes/100 WBC (Bld)28.6 %Bmjtiy05.5-60.0The [facility] on above:Performed By: #### CBC #### [facility] [address] [place] [address] Dr. David HanksUAL DIFF REQNONormalThe [facility] CenterComment on above: Performed By: #### CBC #### [facility] [address] [place] [address] Dr. David León (RBC) [Entitic mass]29.2 viGgvpzu40.7-34.0The [facility] CenterComment on above:Performed By: #### CBC #### [facility] [address] [place] [address] Dr. David León (RBC) [Mass/Vol]33.3 g/cUFmruug84.9-35.2The [facility] CenterComment on above:Performed By: #### CBC #### [facility] [address] [address] [address] David LeónV (RBC) [Entitic vol]87.9 kXBccqpt21.0-99.0The [facility] Hospitalment on above:Performed By: #### CBC #### [facility] [address] [place] [address] Dr. David Arellano #0.6 103/ulNormal0.3-0.8The [facility] CenterComment on above:Performed By: #### CBC #### [facility] [address] [place] [address] Dr. David Sureshocytes/100 WBC (Bld)7.9 %Normal1.7-12.0The [facility] Comment on above:Performed By: #### CBC #### [facility] [address] [place] [address] Dr. David Noble #4.3 103/ulNormal1.4-6.5The [facility] Hospitalment on above:Performed By: #### CBC #### [facility] [address] [place] [address] Dr. David Cavazosutrophils/100 WBC (Bld)59.2 %Keqymh51.0-75.0The [facility] CenterComment on above:Performed By: #### CBC #### [facility] [address] [place] [address] Dr. David Maldonadolet mean volume (Bld) [Entitic vol]9.2 fLCritically low 9.5-13.5The [facility] Hospitalment on above:Performed By: #### CBC #### [facility] [address] [place] [address] Dr. David ZapataPLT280 103/oiUwtzyg717-662Glr [facility] CenterComment on above: Performed By: #### CBC #### [facility] [address] [place] [address] Dr. David ZapataRBC4.62 106/ulNormal4.20-5.40The [facility] Hospitalment on above:Performed By: #### CBC #### [facility] [address] [address] [address] David ZapataWBC7.3 103/ulNormal4.0-11.0The [facility] on above: Performed By: #### CBC #### [facility] [address] [address] [address] David ZapataGLYCOHEMOGLOBIN A1Con 22-20-9971UVP RECOMMENDATIONSEE BELOWDayton Osteopathic HospitalCommymichigan medical center on above:Result Comment: ADA RECOMMENDED LIMIT 4.0 - 6.0 ADA THERAPEUTIC TARGET < 7.0 ACTION SUGGESTED > 7.0Performed By: #### CMP, TSH, LIPID #### [facility] [address] [place] [address] Dr. David ZapataGlucose [Mass/Vol]103 mg/dLNoAdena Health System on above:Performed By: #### CMP, TSH, LIPID #### [facility] [address] [place] [address] Dr. David ZapataHbA1c (Bld) [Mass fraction]5.2 %Normal4.5-6.2The [facility] on above:Performed By: #### CMP, TSH, LIPID #### [facility] [address] [place] [address] Dr. David ZapataLIPID PROFILEon 34-74-6252DFOI-HDL RATIO NORMSEE [facility] on above:Result Comment: 3.3 - 4.4 LOW RISK 4.4 - 7.1 AVERAGE RISK 7.1 - 11.0 MODERATE RISK >11.0 HIGH RISKPerformed By: #### CMP, TSH, LIPID #### [facility] [address] [address] [address] David ZapataCholesterol [Mass/Vol]217 mg/dLCritically high<=200The [facility] on above:Performed By: #### CMP, TSH, LIPID #### [facility] [address] [place] [address] Dr. David ZapataCholesterol in HDL [Mass/Vol]50 mg/bIZwqivj29-88Mnx [facility] CenterComment on above:Performed By: #### CMP, TSH, LIPID #### [facility] [address] [address] [address] David Suarezesterol in LDL [Mass/Vol]137.6 mg/dLMcCullough-Hyde Memorial HospitalCommymichigan medical center on above:Performed By: #### CMP, TSH, LIPID #### [facility] [address] [address] [address] David Mayers.total/Cholesterol in HDL [Mass ratio]4.3 {ratio} NormalThe [facility] CenterComment on above:Performed By: #### CMP, TSH, LIPID #### [facility] [address] [place] [address] Dr. David Garcia NORMAL> or = 60 mg/dl - LOW CARDIOVASCULAR RISK <40 mg/dl - HIGH CARDIOVASCULAR RISKMcCullough-Hyde Memorial HospitalComment on above:Performed By: #### CMP, TSH, LIPID #### [facility] [address] [address] [address] David Bardales CALC NORMALSEE BELOWMcCullough-Hyde Memorial HospitalComment on above:Result Comment: <100 mg/dl OPTIMAL 100 - 129 mg/dl NEAR OR ABOVE OPTIMAL 130 - 159 mg/dl BORDERLINE HIGH 160 - 189 mg/dl HIGH >190 mg/dl VERY HIGH Performed By: #### CMP, TSH, LIPID #### [facility] [address] [address] [address] David ZapataTriglyceride [Mass/Vol]147 mg/dLNormal<=150The [facility] Comment on above:Performed By: #### CMP, TSH, LIPID #### [facility] [address] [address] [address] David PantojaLDL CALC29.4 mg/dLNoTrinity Health System Twin City Medical CenterComment on above: Performed By: #### CMP, TSH, LIPID #### [facility] [address] [place] [address] Dr. David ZapataPROF 14(COMP METB)on 37-15-0214Smawzvn [Mass/Vol]3.6 g/dLNormal 3.4-5.0The [facility] CenterComment on above:Performed By: #### CMP, TSH, LIPID #### [facility] [address] [address] [address] David ZapataAlbumin/Globulin [Mass ratio]1.1 {ratio}NormalThe [facility] CenterComment on above:Performed By: #### CMP, TSH, LIPID #### [facility] [address] [address] [address] David Crockett [Catalytic activity/Vol]62 U/TNscncn38-507Fug [facility] CenterComment on above:Performed By: #### CMP, TSH, LIPID #### [facility] [address] [place] [address] Dr. David Szymanski [Catalytic activity/Vol]21 U/LHszkmi74-47Wse [facility] CenterComment on above:Performed By: #### CMP, TSH, LIPID #### [facility] [address] [place] [address] Dr. David Nguyen gap [Moles/Vol]12.6 mmol/LNormalThe [facility] Comment on above:Performed By: #### CMP, TSH, LIPID #### [facility] [address] [place] [address] Dr. David ZapataAST [Catalytic activity/Vol]14 U/LCritically lgq03-92Poo [facility] CenterComment on above:Performed By: #### CMP, TSH, LIPID #### [facility] [facility] [address] [place] [address] Dr. David ZapataBilirubin [Mass/Vol]0.6 mg/dLNormal0.2-1.0The [facility] Comment on above:Performed By: #### CMP, TSH, LIPID #### [facility] [address] [place] [address] Dr. David ZapataCalcium [Mass/Vol]8.5 mg/dLNormal8.5-10.1[facility] Comment on above:Performed By: #### CMP, TSH, LIPID #### [facility] [address] [place], [place] [id number] Dr. David ZapataChloride [Moles/Vol]103 mmol/ATmvhdv46-674Iio [facility] Comment on above:Performed By: #### CMP, TSH, LIPID #### [facility] [address] [place] [address] Dr. David ZapataCO2 [Moles/Vol]26.2 mmol/NCmwtph89.0-32.0The [facility] Comment on above:Performed By: #### CMP, TSH, LIPID #### [facility] [address] [place] [address] Dr. David ZapataCreatinine [Mass/Vol]0.94 mg/dLNormal0.55-1.02[facility] CenterComment on above:Performed By: #### CMP, TSH, LIPID #### [facility] [address] [place] [address] Dr. Hernandez ChangEGFR-AF MONEGASQUE>60Normal>=60The [facility] CenterComment on above:Performed By: #### CMP, TSH, LIPID #### [facility] [address] [place] [address] Dr. David ChavisGFR-NON AF MONEGASQUE>60Normal>=60The [facility] CenterComment on above:Performed By: #### CMP, TSH, LIPID #### [facility] [address] [place] [address] Dr. David ZapataGlobulin (S) [Mass/Vol]3.3 g/dLNormalThe [facility] CenterComment on above:Performed By: #### CMP, TSH, LIPID #### [facility] [address] [place] [address] Dr. David ZapataGlucose [Mass/Vol]100 mg/hNCzmfbh86-919Dwj [facility] Comment on above:Performed By: #### CMP, TSH, LIPID #### [facility] [address] [place] [address] Dr. David ZapataPotassium [Moles/Vol]3.8 mmol/LNormal3.5-5.1The [facility] Comment on above:Performed By: #### CMP, TSH, LIPID #### [facility] [address] [address] [address] David ZapataProtein [Mass/Vol]6.9 g/dLNormal6.4-8.2The [facility] Comment on above:Performed By: #### CMP, TSH, LIPID #### [facility] [address] [address] [address] David ZapataSodium [Moles/Vol]138 mmol/VQdkwxp426-460Unh [facility] Comment on above:Performed By: #### CMP, TSH, LIPID #### [facility] [address] [address] [address] David ZapataUrea nitrogen [Mass/Vol]7.0 mg/dLNormal7.0-18.0The [facility] CenterComment on above:Performed By: #### CMP, TSH, LIPID #### [facility] [address] [place] [address] Dr. David Khan nitrogen/Creatinine [Mass ratio]7.4 mg/mgNormalThe [facility] CenterComment on above:Performed By: #### CMP, TSH, LIPID #### [facility] [address] [place] [address] Dr. David Tobias 91-50-3552FWL4.434 uIU/mLNormal0.358-3.740The [facility] CenterComment on above:Performed By: #### CMP, TSH, LIPID #### [facility] [address] [place] [address] Dr. David ZapataMRI BRAIN WO W CONon 27-94-1791BIP BRAIN WO W CONEXAMINATION: MRI BRAIN WO [...] Electronically authenticated by: EDILSON JOHN Date: 2022-06-10 06:40[facility] METABOLIC PANELon 63-39-7502Ihbfrdg [Mass/Vol]8.6 mg/dL Normal8.6-10.3The [facility] HospitalComment on above:Order Comment: No: Do not add to previous drawPerformed By: #### 28312, 12377 #### [facility] [address] [place] [address], USAChloride [Moles/Vol]106 mmol/VQeurfl18-476Sii [facility] HospitalComment on above:Order Comment: No: Do not add to previous drawPerformed By: #### 36482, 98781 #### [facility] [address] [place] [address], USACO2 [Moles/Vol]24 mmol/XGsfvug95-63Sdw [facility] HospitalComment on above:Order Comment: No: Do not add to previous draw Performed By: #### 75065, 94543 #### [facility] [address] [place] [address], USACreatinine [Mass/Vol]0.90 mg/dLNormal0.60-1.20The [facility] HospitalComment on above:Order Comment: No: Do not add to previous drawPerformed By: #### 75524, 16506 #### [facility] [address] [place] [address], USAGFR/1.73 sq M predicted among blacks MDRD (S/P/Bld) [Vol rate/Area]mL/min/{1.73_m2}Normal>60The [facility] Comment on above:Order Comment: No: Do not add to previous drawPerformed By: #### 63407, 13992 #### [facility] [address] [place] [address], USAGFR/1.73 sq M predicted among non-blacks MDRD (S/P/Bld) [Vol rate/Area]mL/min/{1.73_m2}Normal>60The [facility] Comment on above:Order Comment: No: Do not add to previous drawPerformed By: #### 41924, 74400 #### [facility] [address] [place] [address], USAGlucose [Mass/Vol]97 mg/bNWahexr29-889Ciq [facility] HospitalComment on above:Order Comment: No: Do not add to previous drawPerformed By: #### 14491, 88984 #### [facility] [address] [place] [address], USAPotassium [Moles/Vol]3.9 mmol/LNormal3.5-5.1The [facility] HospitalComment on above:Order Comment: No: Do not add to previous drawPerformed By: #### 13074, 95966 #### [facility] [address] [place] [address], USASodium [Moles/Vol]136 mmol/BCasbmx823-166Usd [facility] HospitalComment on above:Order Comment: No: Do not add to previous drawPerformed By: #### 27455, 70194 #### [facility] [address] [place] [address], USAUrea nitrogen [Mass/Vol]11 mg/dLNormal7-25The [facility] HospitalComment on above:Order Comment: No: Do not add to previous drawPerformed By: #### 30179, 38645 #### [facility] [address] [place] [address], USACBC COMPLETE BLOOD COUNTon 06-13-2513Fkpbkmaxxxa distribution width (RBC) [Ratio]12.0 %Wznuxf80.5-15.0The [facility] HospitalComment on above:Order Comment: No: Do not add to previous draw Performed By: #### 74165 #### [facility] [address] [place] [address], USAHematocrit (Bld) [Volume fraction]42.7 %Ohuogq86.0-45.0The [facility] HospitalComment on above:Order Comment: No: Do not add to previous drawPerformed By: #### 68050 #### [facility] [address] [place] [address], USAHemoglobin (Bld) [Mass/Vol]13.9 g/gTZiwyec15.0-15.0The [facility] HospitalComment on above:Order Comment: No: Do not add to previous drawPerformed By: #### 24325 #### [facility] [address] [place] [address], [facility] (RBC) [Entitic mass]29.6 qcOlksmy47.0-33.0The [facility] HospitalComment on above:Order Comment: No: Do not add to previous drawPerformed By: #### 10499 #### [facility] [address] [place] [address], [facility] SERVICESMCHC (RBC) [Mass/Vol]32.6 g/iDKlqogs98.0-35.0The [facility] HospitalComment on above:Order Comment: No: Do not add to previous drawPerformed By: #### 82331 #### [facility] [address] [place] [address], [facility] SERVICESMCV (RBC) [Entitic vol]91.0 vFHwuecz13.0-98.0The [facility] HospitalComment on above:Order Comment: No: Do not add to previous drawPerformed By: #### 03651 #### [facility] [address] [place] [address], USANucleated RBC/100 WBC (Bld) [Ratio]0 %Normal0-0The [facility] HospitalComment on above:Order Comment: No: Do not add to previous drawPerformed By: #### 28957 #### [facility] [address] [place] [address], USAPLAT SAJ087 10*3/pKHkhyqg406-944Fnb [facility] HospitalComment on above:Order Comment: No: Do not add to previous draw Performed By: #### 73020 #### [facility] [address] [place] [address], USARBC (Bld) [#/Vol]4.69 10*6/uLNormal3.80-5.00The [facility] HospitalComment on above:Order Comment: No: Do not add to previous drawPerformed By: #### 47794 #### [facility] [address] [place] [address], USAWBC (Bld) [#/Vol]8.19 10*3/uLNormal4.00-10.60The [facility] HospitalComment on above:Order Comment: No: Do not add to previous drawPerformed By: #### 73486 #### [facility] [address] [place] [address], USACardiovascular Lab Reporton 58-15-1399Fdwvyazxrckesf Lab ReportUnMer[facility] Health [facility] Name: Elvia Fox [facility] Alexy MR #: [id number] Department of Physician: Mike Polanco M.D. Division of Service Date: 06/16/2019 Cardiology Birthdate: 1975 Adult Cardiovascular Room #: 3AB [id number] [place] [address] [address] [place], [place] [address] Cardiovascular Laboratory Report FINAL IMPRESSIONS: 1. Angiographically [...] the left radial artery was obtained. A 6-Samoan glide sheath was inserted without difficulty. Bilateral [...] P/Vidhi Anderson M.D. Date Trans: 06/17/2019 04:09 Alexy/adela DN_JN:[id number] cc: Pat Huston M.D. [address] [place] [address] Amos Vazquez M.D. [address] [address]LrbktfXajCincinnati Children's Hospital Medical CenterHEMOGLOBIN A1Con 71-23-7835TwA1j (Bld) [Mass fraction]4.8 %Normal4.0-6.0The [facility] HospitalComment on above:Order Comment: Yes: Add to Previous draw if ablePerformed By: #### 17124, 01603 #### [facility] [address] [place] [address], BSOEkJ0i (Bld) [Mass fraction]91 mg/mOBgzbmy90-348Qxq [facility] HospitalComment on above:Order Comment: Yes: Add to Previous draw if ablePerformed By: #### 62836, 29444 #### [facility] [address] [place] [address], USALIPID PROFILEon 14-14-9141Picncciucji [Mass/Vol]209 mg/dL Tppp279-006Uec [facility] HospitalComment on above:Order Comment: Yes: Add to Previous draw if ableResult Comment: CHOLESTEROL REFERENCE RANGE: 20 YEARS AND OLDER CARDIOVASCULAR RISK Less than 200 mg/dl Low Risk 200 to 239 mg/dl Borderline Risk 240 mg/dl and greater High RiskPerformed By: #### 32426, 88531, 83899, 97581 #### [facility] [address] [place] [address], USACholesterol in HDL [Mass/Vol]35 mg/pZQkqvgc73-42Dpe [facility] HospitalComment on above:Order Comment: Yes: Add to Previous draw if ableResult Comment: Slight variation in normal range could be due to gender and/or age. HDL CHOLESTEROL REFERENCE RANGE: 20 years and older Cardiovascular Risk > or =60 mg/dL Desirable 40 TO 59 mg/dL Low Risk <40 mg/dL High RiskPerformed By: #### 65391, 24601, 44815, 23995 #### [facility] [address] [place] [address], USACholesterol in LDL [Mass/Vol]139 mg/dLHigh0-130The [facility] HospitalComment on above:Order Comment: Yes: Add to Previous draw if ableResult Comment: LDL IS A CALCULATION LDL IS ONLY VALID IF THE TRIG IS LESS THAN 400.Performed By: #### 31763, 87662, 88696, 09440 #### [facility] [address] [place] [address], USACholesterol.total/Cholesterol in HDL [Mass ratio]6.0 {ratio}High0.0-4.5The [facility] HospitalComment on above:Order Comment: Yes: Add to Previous draw if ablePerformed By: #### 52228, 13663, 13639, 91112 #### [facility] [address] [place] [address], USANON-HDL JKGDZDREVQD305 mg/dLNormalThe [facility] HospitalComment on above:Order Comment: Yes: Add to Previous draw if able Performed By: #### 65740, 03742, 64191, 36839 #### [facility] [address] [place] [address], USATriglyceride [Mass/Vol]174 mg/fYAtfa55-622Eun [facility] HospitalComment on above:Order Comment: Yes: Add to Previous draw if ableResult Comment: TRIGLYCERIDE REFERENCE RANGE: 20 YEARS AND OLDER CARDIOVASCULAR RISK LESS THAN 150 mg/dl LOW RISK 150 TO 199 mg/dl BORDERLINE RISK 200 mg/dl AND GREATER HIGH RISKPerformed By: #### 40482, 57087, 93738, 78233 #### [facility] [address] [facility] [place] [address], [facility]ARE SERVICESVLDL CHOL35 mg/dLNormal0-40The [facility] HospitalComment on above:Order Comment: Yes: Add to Previous draw if able Performed By: #### 45677, 31029, 27168, 38480 #### [facility] [address] [facility] [place] [address], USAMAGNESIUM BLOODon 75-35-5544Taoozylbn [Mass/Vol]2.2 mg/dL Normal1.9-2.7The [facility] HospitalComment on above:Order Comment: No: Do not add to previous drawPerformed By: #### 22747, 61612, 34475, 51156 #### [facility] [address] [facility] [place] [place] [address], USAPHOSPHORUS BLOODon 08-39-0291Katsajjpc [Mass/Vol]4.3 mg/dL Normal2.5-5.0The [facility] HospitalComment on above:Order Comment: No: Do not add to previous drawPerformed By: #### 11658, 02097 #### [facility] [address] [facility] [place] [address], USAAPTTon 58-56-1897xBVD Coag (Bld) [Time]27.3 sNormal 25.0-35.0The [facility] HospitalComment on above:Result Comment: ALL RESULTS MUST [...] BE USED FOR THIS PURPOSE.Performed By: #### 35462, 87594 #### [facility] [address] [place] [address], USABASIC METABOLIC PANELon 86-14-5938Fxrxowg [Mass/Vol]9.3 mg/dLNormal8.6-10.3The [facility] HospitalComment on above:Order Comment: No: Do not add to previous drawPerformed By: #### 96669, 33588, 83770, 13554, 63548 #### [facility] [address] [place] [address], USAChloride [Moles/Vol]105 mmol/JHucgit87-911Axu [facility] HospitalComment on above:Order Comment: No: Do not add to previous drawPerformed By: #### 28504, 40792, 65770, 88087, 71253 #### [facility] [address] [place] [address], USACO2 [Moles/Vol]23 mmol/DHshqxq03-25Cih [facility] HospitalComment on above:Order Comment: No: Do not add to previous draw Performed By: #### 35978, 39941, 34176, 69111, 48727 #### [facility] [address] [place] [address], USACreatinine [Mass/Vol]0.85 mg/dLNormal0.60-1.20The [facility] HospitalComment on above:Order Comment: No: Do not add to previous drawPerformed By: #### 91547, 05453, 33789, 40987, 09726 #### [facility] [address] [place] [address], USAGFR/1.73 sq M predicted among blacks MDRD (S/P/Bld) [Vol rate/Area]mL/min/{1.73_m2}Normal>60The [facility] Comment on above:Order Comment: No: Do not add to previous drawPerformed By: #### 28523, 49640, 72432, 78018, 76906 #### [facility] [address] [place] [address], USAGFR/1.73 sq M predicted among non-blacks MDRD (S/P/Bld) [Vol rate/Area]mL/min/{1.73_m2}Normal>60The [facility] Comment on above:Order Comment: No: Do not add to previous drawPerformed By: #### 56613, 80979, 50785, 45140, 69663 #### [facility] [address] [place] [address], USAGlucose [Mass/Vol]91 mg/hBBubjlo29-534Vrj [facility] HospitalComment on above:Order Comment: No: Do not add to previous drawPerformed By: #### 03075, 75294, 86932, 70205, 00117 #### [facility] [address] [place] [address], USAPotassium [Moles/Vol]3.9 mmol/LNormal3.5-5.1The [facility] HospitalComment on above:Order Comment: No: Do not add to previous drawPerformed By: #### 65086, 95025, 23791, 13233, 75526 #### [facility] [address] [place] [address], USASodium [Moles/Vol]136 mmol/EIzkxzv347-679Gey [facility] HospitalComment on above:Order Comment: No: Do not add to previous drawPerformed By: #### 02783, 81767, 59180, 06054, 77110 #### [facility] [address] [place] [address], USAUrea nitrogen [Mass/Vol]10 mg/dLNormal7-25The [facility] HospitalComment on above:Order Comment: No: Do not add to previous drawPerformed By: #### 79510, 32597, 23246, 63485, 94228 #### [facility] [address] [place] [address], USAFREE T3on 49-11-8986Pzjy T3 [Mass/Vol]2.6 pg/mLNormal 2.5-3.9The [facility] HospitalComment on above:Performed By: #### 81077, 47988, 98081, 82261, 35187 #### [facility] [address] [place] [address], USAFREE T4on 41-27-5336Lozl T4 [Mass/Vol]0.73 ng/dLNormal 0.71-1.85The [facility] HospitalComment on above:Performed By: #### 37354, 02829, 43616, 48603, 57269 #### [facility] [address] [place] [address], USAMAGNESIUM BLOODon 08-36-3911Uhrezogca [Mass/Vol]2.2 mg/dL Normal1.9-2.7The [facility] HospitalComment on above:Order Comment: No: Do not add to previous draw MissPerformed By: #### 18115, 45132, 78085, 24534, 04615 #### [facility] [address] [place] [address], USAPROTHROMBIN TIMEon 10-49-0937UKX Coag (PPP) [Relative time] 1.06 {INR}Normal0.91-1.16The [facility] HospitalComment on above:Result Comment: ACCCP RECOMMENDED INR [...] OPTIMAL THERAPEUTIC RANGE. CHEST 1995;108:231S-246S.Performed By: #### 50932, 68686 #### [facility] [address] [facility] [place] [address], USAPT Coag (PPP) [Time]13.8 wHeliwu21.3-14.8The [facility] HospitalComment on above:Result Comment: ALL RESULTS MUST BE INTERPRETED WITH RESPECT TO BLOOD DRAWING ARTIFACT OR DILUTION ERROR OF ANTICOAGULANT AT THE TIME OF SAMPLING.Performed By: #### 49700, 54910 #### [facility] [address] [facility] [place] [address], PBFFIU2vj 36-85-4641CEH 3RD GENERATION1.94 uIU/mLNormal 0.34-5.60The [facility] HospitalComment on above:Performed By: #### 63503, 40215, 27530, 45110, 42157 #### [facility] [address] [facility] [place] [address], [facility] Vital Signs Date TimeVital SignValuePerforming VehrxapbtGzcixxik48-75-9207 16:18-0400 Diastolic blood dcstdjqu91 mm[Hg]Pat Huston MD Work Phone: [facility]07-31-2025 16:18-0400 Heart rate62 /Rubina Huston MD Work Phone: [facility]07-31-2025 16:18-0400 Systolic blood amfobaca091 mm[Hg]Pat Huston MD Work Phone: [facility]12-16-2024 11:00-0500 Body ibcpay272.1 cmAchemadottie Woodsvik RETAIL SALES TEAMMATE Work Phone: [facility]Itghsjfbvy24-51-6626 11:00-0500Body mass index (BMI) [Ratio]35.65 kg/z5Dnhucb Salinas RETAIL SALES TEAMMATE Work Phone: [facility] WashingtonMeffhfphrv78-74-7091 11:00-0500Body amvrjr55.18 kgHarlan Salinas RETAIL SALES TEAMMATE Work Phone: [facility] WashingtonBxbdpywfxn56-58-9954 11:00-0500Diastolic blood geyallzq05 mm[Hg]Harlan Salinas RETAIL SALES TEAMMATE Work Phone: [facility] WashingtonQlqiwdvdjb85-10-8039 11:00-0500Heart rate58 /min Harlan Niño RETAIL SALES TEAMMATE Work Phone: [facility] WashingtonDpvvjjjult98-40-9846 11:00-0983GdM1% (BldA) [Mass fraction]98 %Harlan Salinas RETAIL SALES TEAMMATE Work Phone: [facility] WashingtonYdbvbufhax81-57-6834 11:00-0500Systolic blood gnuthgfq116 mm[Hg]Harlan Salinas RETAIL SALES TEAMMATE Work Phone: [facility] WashingtonKnekednmud05-09-4174 11:16-0400Body .1 cm[facility]10-30-2024 11:16-0400Body mass index (BMI) [Ratio]35.4 kg/p7QejvdjayvCoshocton Regional Medical Center10-30-2024 11:16-0400Body duouhx05.61 kgCoshocton Regional Medical Center10-30-2024 11:16-0400Diastolic blood wupuxibx35 mm[Hg][facility]10-30-2024 11:16-0400 Heart rate65 /minCoshocton Regional Medical Center10-30-2024 11:16-0400Systolic blood lfdiywzj055 mm[Hg][facility]11-14-2023 10:29-0500 Body .1 cmMD Pat Huston Work Phone: [facility]11-14-2023 10:29-0500 Body irxqzd29.52 kgMD Pat Robel Work Phone: [facility] Encounters Encounter DateEncounter TypeCare ProviderFacilityStart: 05-24-2025 End: 75-40-0097bizipalxadZxorvd E Braun MD Work Phone: [facility] Work Phone: Start: 05-24-2025 End: 12-23-3472Xquzusy encounter procedureHarlan Brandt [facility] [place] Work Phone: Start: 05-03-2025 End: 75-01-1715kzdcihfhhmMNWFTrinity Health System Twin City Medical Centertart: 10-09-2024 End: 41-02-3076Kvhoov flowsheetHarlan Niño RETAIL SALES TEAMMATE Work Phone: [facility]Start: 10-09-2024 End: 71-44-0155Lsrjbx flowsheetHarlan Niño RETAIL SALES TEAMMATE Work Phone: noMS [facility] [facility]TEStart: 10-09-2024 End: 93-41-0746Cpwuun outpatient visit 25 minutesAngejayne Niño RETAIL SALES TEAMMATE Work Phone: noMS [place] R[facility]TEComment on above:Abnormal MRI (Primary Dx); Anisocoria; Tremor; Tension-type headache, not intractable, unspecified chronicity pattern; Vertigo; Primary insomniaStart: 10-09-2024 End: 21-59-4020ehekjpyedpRSIIGO GILLMORNot AvailableStart: 50-52-5848Hhaseqo encounter [facility] Hospitaltart: 08-23-2024 End: 43-71-8690udwkfkksqmFlkligqreOhio Valley Surgical Hospital Work Phone: Start: 08-23-2024 End: 99-24-4319Rjdetmy encounter [facility] Phys[facility] [place] [facility] Work Phone: Start: 03-16-2024 End: 52-46-0435Zrhwnogpo Result EncounterAngela Peggymor RETAIL SALES TEAMMATE Other Phone: NOVB External Department UnsolicitedStart: 03-16-2024 End: 83-02-4285Yfiutmktk Result EncounterAngela Peggymor RETAIL SALES TEAMMATE Other Phone: noms External Department UnsolicitedStart: 02-28-2024 End: 57-46-3487iveszplxitLBVFOE PEGGYMORNot AvailableStart: 50-67-1869Sjfpztesc encounterMarcia RobelSt. Rita's Hospitaltart: 09-07-2023 End: 72-62-0277avarlufbooOgztaj E BraunFacility:[facility] Hospitaltart: 09-07-2023 End: 69-41-5684utlbkgrvpoVA Marcia E Braun Work Phone: [facility] Work Phone: Start: 09-07-2023 End: 73-77-2267Dklowfy encounter procedureMD Pat Huston Work Phone: [facility] [place] Work Phone: Start: 08-06-2023 End: 54-56-6599ljsqvhjfszUljsbd Braun Other noMasala [employer] Other Start: 96-31-0243Zpbiczaqz encounterMarcia RobelCleveland Clinic Akron General ClinicStart: 07-27-2023 End: 00-14-4484mxpzamumukQeculj Braun Other noMasala [employer] Other Start: 68-55-9118Usrfzlnlz encounterMarcia RobelCleveland Clinic [facility]ron General ClinicStart: 07-13-2023 End: 86-71-5951cuqgxzsoryIyfztz Braun Other [employer] Other Start: 78-98-7594Hvhkdokuc encounterMarcia RobelCleveland Clinic [facility]ron General ClinicStart: 07-06-2023 End: 04-42-8022ybqkgirzxaLypnzt Robel Other noVODECLIC Other Start: 16-79-2291Vrajcemlc encounterPat Cee [facility] ClinicStart: 15-55-4740srwggvccynWnojvvvcmpi Abdelaziz [facility] Hospitaltart: 00-53-8635mgwiofmiadNU EHAB ELTAHAWYFacility:W7Koeqg: 02-16-2023 End: 75-55-0710xarzidipozUS JL DANNERFacility:Z9Waxcl: 02-11-2023 End: 11-09-8026qbsussutjbEK EHAB ELTAHAWYFacility:D1Ggsnd: 54-12-3697Vrkfymxzx for general adult medical examination without abnormal findingsDR PAT HUSTON [facility] Hospitaltart: 11-19-2022 End: 85-63-4639srkkiowwsgBzqqze Braun Other [employer] Other Start: 44-21-4840Prlncxcoj encounterPat Cee [facility] ClinicStart: 11-18-2022 End: 29-71-3179ptpolbklhnFE PAT HUSTONFacility:X3Ltffs: 11-18-2022 End: 60-88-7804Ayqdockrf for general adult medical examination without abnormal findingsDR PAT HUSTONFacility:Q3Raucb: 11-04-2022 End: 71-40-8730tbkfvufptxWN EHAB ELTAHAWYFacility:T8Wbjzk: 07-10-2022 End: 89-49-7791gpebxceuxtFM PAT HUSTONFacility:X8Cwwzo: 64-55-7565Wclnh health examinationPat Huston Other noVODECLIC Other Start: 85-70-4901Fgadczxrl for general adult medical examination without abnormal findingsPat Huston Other [employer] Other Start: 06-24-2022 End: 53-69-2323uvnjizbnquGN PAT HUSTONFacility:U3Fiwtx: 06-09-2022 End: 35-88-8978idqcapnafvDH DOCTOR MISCFacility:L8Grgqt: 06-16-2019 End: 55-41-1152Ttmmgbr encounter procedureOMAR AL-HOURANIFacility:UTMCStart: 75-28-1021Mvvpqxbggytxr examination normalPat Huston Other Nort [employer] Other Procedures DateProcedureProcedure DetailPerforming ClinicianStart: 40-46-3626BUS HEAD/BRAIN WO/W Scott Niño NP Other Phone: Start: 97-58-0626GRY of bilateral breasts with contrastMD Pat Robel Work Phone: Start: 26-04-7891Weoxmahwu visitPat Robel Other Start: 94-73-3919Rucimfsowabfo care educationPat Robel Other Screening for malignant neoplasm of breastPat Robel Other Viral screeningPat Robel Other Plan of Treatment DateCare ActivityDetailAuthorStart: 04-02-2025 End: 62-73-8922Zbqzbic encounter lkzcjusqk68/09/2025 4:00 PM EDT Office Visit [facility] [address] [place] [address] Harlan Niño NP [address] [place] [address] [facility] ROUTEStart: 10-09-2024 End: 75-50-8680Cyzmkom encounter couhqsgms29/16/2024 10:40 AM EST Office Visit [facility] [place] [address] [place] [address] Harlan Niño NP [address] [place] [address] ArrivedNO [facility] ROUTEComment on above: ArrivedComprehensive metabolic 2000 panel - Serum or PlasmaCoshocton Regional Medical CenterXR Pelvis and Hip - bilateral ViewsGolisano Children's Hospital of [facility] Payers DatePayer CategoryPayerPolicy [id number]-ndm [id number] [facility] [id number] [id number] 2..8.799861.752[id number] 2..1.683808.3.579.2.93559-70-6256Hftgjga4846093 2..1.831086.3.579.2.86026-96-4178Fblgjit1074305 2..1.114021.3.579.2.24503-40-7700Kslbkub4693292 2..1.960541.3.579.2.36743-81-9930Skelcir3063685 2..1.107057.3.579.2.04508-83-5971Wvvrats0199859 2.16.840.1.552173.3.579.2.52253-07-4317Sgemfkc3940777 2.16.840.1.605476.3.579.2.34592-43-6976Aumiedi7601527 2.16.840.1.271732.3.579.2.45925-09-5000Twvnyqk7285043 2.16.840.1.972868.3.579.2.76483-84-0254Pmxbeqb9954661 2.16.840.1.294843.3.579.2.110035-64-2474Kgtwhik3873901 2.16.840.1.232175.3.579.2.457149-13-1637Sbrw-rrr436615245KexiqjgJ75688196Geeuiin Other1 (STD)[id number] 75603qei-693a-0f18-w60c-[id number] 2.16.840.1.198855.3.579.2.149Scanowu19993943 2.0.1.096930.3.579.2.531 Social History DateTypeDetailFacilityUnknown if ever smokedTampa [employer] Other Start: 02-28-2024 End: 97-55-1597Ucj Assigned At [facility] [employer] Other Start: 73-74-1766Xhn Assigned At [facility] Hospitaltart: 04-20-2022 End: 15-94-2486Frgfvch smoking status NHISNever smoked tobacco (finding) [facility] Hospitaltart: 45-40-3813Zzaxwhb use and exposure Smokeless tobacco non-userNOMS HealthcareStart: 02-28-2024 End: 41-64-5660Msxprfdjt beverage intakeLifetime non-drinker (finding)[facility] HealthcareStart: 02-28-2024 End: 57-10-3968Wjtdhke of Social functionMercy Hospital WashingtonStart: 84-47-4648Mtbqkc identityIdentifies as female gender (finding)[facility] HealthcareSexFemale (finding) [facility] Hospitaltart: 65-35-5781EotCvihzdXPMLPrisma Health Baptist Hospital Clinical Notes 11-04-2022 to 05-03-2025 Note Date & WweuWlzbKgclbbtm94-43-5668 [facility] Note Chief Complaint: [...] dizziness. She did see one of our property portfolio officer Dr. Guevara and they discussed the potential [...] Paroxysmal tachycardia (CMS/HCC), Prinzmetal angina, and WPW (Myobf-Htyxnopnp-Ylbmj syndrome). Surgical History She has a past [...] to pulmonary hypertension and/o (more content not included)...[facility] 07-27-2023 Evaluation note* Encounter Date Diagnosis Assessment Notes Treatment Notes Treatment Clinical Notes Jul, Abnormal mammogram (ICD-10 - R92 .8) [facility] [employer] Other 09-19-2023 Evaluation note* Encounter Date Diagnosis Assessment Notes Treatment Notes Treatment Clinical Notes Jun, Abnormal mammogram of right rae st (ICD-10 - R92.8) [place] [employer] Other 09-12-2023 Evaluation note* Encounter Date Diagnosis Assessment Notes Treatment Notes Treatment Clinical Notes Jun, Screening mammogram for breast c ancer (ICD-10 - Z12.31) [facility] [employer] Other 01-11-2023 NoteCARDIAC STRESS TEST Requesting Physician: [...] further information. 7. Clinical correlation is recommended.[facility] CenterEvaluation noteNo InformationNotwo rivers psychiatric hospital [employer] Other Evaluation noteNo assessment information available [facility] Work Phone: Evaluation note* Diagnosis Onset Date Resolution Status Bilateral hip pain acute [facility] Work Phone: Evaluation note* Diagnosis Abnormal [...] CERVICAL DISORDERSurgical Historyarthroscopy twice-2006,2008; rhinoplasty Surgical Historylap-hystoscopy, d&r3347Cxbxbdeh HistoryhysterectomySurgical Historybone marrow anespphf9511Vcosooyjzllzujl Historysee above [employer] Other History general Narrative - Reported* Type [...] Title : Outpatient,Surgical HistoryProblem Title : NON NURSING PROFESSOR SURGERIES: Right knee arthroscopy, Problem Status : [...] Ligation, Problem Status : Active,Hospitalization Historysee above [employer] Other Reason for referral (narrative)No reason for referral information availableMercy Health Allen Hospital Work Phone: Summary Purpose Family History No Family History Records Found Relationship Condition Age at Onset Recorded Date/T porfirio father Hypertension Unknown Heart diseaseUnknownHistory of strokeUnknownmotherHypertensionUnknown Advance Directives No Advanced Directives Records Found Advance Directive Response Recorded Date/ Time Advance Directives No August 9:55am Advance Directive Response Recorded Date/ Time Advance Directives No August 10:55am Hospital Course Note MR#: [id number] [facility] Pt. Name: Elvia Fox Admitted: 06/16/2019 Discharged: 06/17/2019 Date of : 1975 Physician: Alessandro Lin MD DISCHARGE SUMMARY PRIMARY DIAGNOSES: 1. Typical chest pain with abnormal stress test. Post heart catheterization, which demonstrated no significant coronary artery stenosis. 2. Major depressive disorder. 3. Lower end of normal T4 with normal TSH. 4. Eszjm-Pszhkmttk-Iucxd. HOSPITAL COURSE: The patient is a 43-year-old [...] and content) DATE CREATED AUTHOR 09/18/2019 [facility] DATE CREATED AUTHOR AUTHOR'S ORGANIZ ATION 03/07/2023 [facility] DATE CREATED AUTHOR AUTHOR'S ORGANIZ ATION 10/14/2023 [facility] DATE CREATED AUTHOR AUTHOR'S ORGANIZ ATION 10/11/2024 [facility] EPIC DATE CREATED AUTHOR AUTHOR'S ORGANIZ ATION 08/28/2025 [facility] REASON FOR VISIT (unrecogniz ed section [...] DateEnd Date Pat Huston MD [address] [place] [address] PCP - General02/27/24Team MemberRelationshipSpecialtyStart DateEnd Date Pat Huston MD [address] [place] [address] PCP - General02/27/24 Jl Aguilar DO [address] [id number] Referring EvislwrscZdexabmwe76/16/24 Team Status: Inactive Member Role Status Dates Pat Huston MD Primary Care Provider Active Start: May 24, 2025 End: May 24Alicja Coleman ProviderActiveStart: May 24, 2025 End: May 24, 2025Team MemberRelationshipSpecialtyStart DateEnd Date Pat Huston MD PCP - General02/27/24 Harlan Niño NP PCP - [place] [employer]// Jl Aguilar DO [address] [place] [address] Referring HdasyudzmXpxjiizio91/16/24 Goals (unrecognized section and content) Goals may [...] BE BASED ON THE PRIMARY CLINICAL RECORDS. [facility]. provides no warranty or guarantee of the accuracy or completeness of information in this document.
--- OUTSIDE RECORDS SUMMARY | 2025-09-06 07:08 | XMS_ITS | Clinical Summary ---
Author Organization [facility] tem Address [facility] [address] [place] [address] Care Team Providers Care Liquid Fertilizer Servicer Name Role Phone Pat Dominique MD Primary Care Provider [phone] Allergies Active AllergyReactionsCriticalityNoted DateCommentsPropoxyphene N-Acetaminophen Rkwuqvmq75/28/9878UefvvlvwflvpYgkjv52/28/2919VjfehkqzkgYpjztfog68/21/2014 Oxycodone-FvnontmfaagqcRnxhckqb52/21/2014 Medications MedicationSigDispense QuantityRefillsLast FilledStart DateEnd DateStatus buPROPion [...] UseTypesPacks/DayYears UsedDateSmoking Tobacco: NeverSmokeless Tobacco: NeverPHQ-2AnswerDate RecordedTotal Sjbac190/10/2022ChildcareAnswerDate Recorded PkpqfcgnnWqlmmvp62/10/2019EmploymentAnswerDate RecordedEmploymentUnknown 04/03/2019CommentsUnknownSex and Gender InformationValueDate RecordedSex Assigned at BirthNot on fileLegal PcnSbzvah68/04/2015 2:10 PM EDTGender Identity Not on fileSexual OrientationNot on file Last Filed Vital Signs Vital SignReadingTime TakenCommentsBlood Clnawwro630/7708 10:39 AM EDT Wisyv944706/03/2022 10:39 AM EDTTemperature--Respiratory Rate--Oxygen Saturation-- Inhaled Oxygen Concentration--Ngfvjz58.1 kg (214 lb)06/03/2022 10:39 AM EDT Gbkaxh214.6 cm (5' 4 )06/03/2022 10:39 AM EDTBody Mass Index36.7306/03/2022 10:39 AM EDT Plan of Treatment Health MaintenanceDue DateLast DoneCommentsDepression Ittoaqdlw71/10/1989Tobacco Uuwrdmqfp48/10/1989Adult BMI Xrohkdvpr67/10/1995DTaP,Tdap and Td Vaccines (1 - Tdap)1996Pap Smear1998COVID-19 Vaccine ( - 2024- season) 510/, 11/21/2020, 10/23/2020Influenza Mofkpdt3906/25/2025 08/19/2018 Medical Devices Not on file Insurance Care Teams Team MemberRelationshipSpecialtyStart DateEnd Date Pat Dominique MD [facility] [place] [address] PCP - GeneralFamily Tpojzvkj35/28/21
--- OUTSIDE RECORDS SUMMARY | 2025-09-06 07:08 | XMS_ITS | Clinical Summary ---
Author Organization [facility] Address [address] [place] [address] Care Team Providers Care Course Instructor Name Role Phone Pat Dominique MD Primary Care Provider [phone] Nell Aguilar DO Unavailable [phone] Allergies Active AllergyReactionsCriticalityNoted DateCommentsMeperidine HclGI intolerance 02/25/2024Oxycodone-AcetaminophenGI ilhbdrbphmf79/03/2024 Medications MedicationSigDispense QuantityRefillsLast FilledStart DateEnd DateStatus buPROPion [...] tablet Take 40 mg by mouth at thzfidp5512/01/2023ctive nitroglycerin (Nitrostat) 0.[address] 0.4 mg under the tongue every 5 (five) minutes if needed for chest pain Active Active Problems ProblemNoted DateDiagnosed DatePrimary wlykprcv67/06/2024Tension-type headache, not fjibadlfsrr73/06/8844Ausmsv35/06/8451Hdsintm14/06/2024Eye exam abnormal 02/25/2024bnormal MRI02/25/20242958Exqkxceuki64/03/2024Intractable tension-type akcfhcff53/03/2024erebrovascular fquakbr0402/25/2024 Family History Medical HistoryRelationNameCommentsCoronary artery diseaseFatherHyperlipidemia FatherStrokeFatherHyperlipidemiaMotherHypertensionMotherOsteoarthritisMother CancerSisterHyperlipidemiaSisterKidney diseaseSisterOsteoarthritisSisterRelation NameStatusCommentsFatherMotherSister Social History Tobacco UseTypesPacks/DayYears UsedDateSmoking Tobacco: NeverSmokeless Tobacco: Never Tobacco Cessation:Counseling Given: Not Answered Alcohol UseStandard Drinks/WeekCommentsNever0 (1 standard drink = 0.6 oz pure alcohol)CommentsUnknownSex and Gender InformationValueDate RecordedSex Assigned at WkmooYgpirk04/05/2024 3:50 PM EDTLegal NfjPygsjk51/15/2023 7:17 PM EDTGender CkvgusznIkobzw03/05/2024 3:50 PM EDTSexual OrientationNot on file Last Filed Vital Signs Vital SignReadingTime TakenCommentsBlood Kpkmtdbm861/6810/09/2024 11:00 AM EST Lgypj289010/09/2024 11:00 AM ESTTemperature--Respiratory Rate--Oxygen Saturation 98%10/09/2024 11:00 AM ESTInhaled Oxygen Concentration--Qfjaxx04.2 kg (214 lb 4 oz)10/09/2024 11:00 AM XTZWtrtow043.1 cm (5' 5 )10/09/2024 11:00 AM ESTBody Mass Index35.6510/09/2024 11:00 AM EST Plan of Treatment Not on file Insurance Care Teams Team MemberRelationshipSpecialtyStart DateEnd Date Pat Dominique MD PCP - General02/27/24 Nell Aguilar DO [address] [place] [address] Referring EopxkzilgPkdswgzvw52/16/24
--- OUTSIDE RECORDS SUMMARY | 2025-09-06 07:08 | XMS_ITS | Clinical Summary ---
Author Organization [facility] Address [address] [place] [address] Care Team Providers Care Account Manager Employee Benefits Name Role Phone Pat Dominique MD Primary Care Provider [phone] Allergies Active AllergyReactionsCriticalityNoted JrnbOibzctypVoxodrjnjpjgIgoxj91/28/2021 MeperidineGI intolerance,Other12/15/2013Oxycodone-AcetaminophenOther,GI mahqptwdwvh89/21/2014Propoxyphene N-AcetaminophenOther,GI dfdoxeldqkl25/21/2014 Medications MedicationSigDispense QuantityRefillsLast FilledStart DateEnd DateStatus buPROPion XL (Wellbutrin XL) 300 mg 24 hr tablet Take 300 mg by mouth in the morning.Active DULoxetine (Cymbalta) [address] capsule Take 30 mg by mouth in the morning.Active hydroCHLOROthiazide (HYDRODiuril) 25 mg tablet Indications:Essential hypertensionTAKE 1 TABLET BY MOUTH IN THE MORNING 90 tablet 5Active clopidogrel (Plavix) 75 mg tablet Indications:Coronary artery disease of [place] artery [place] heart with stable angina pectorisTAKE 1 TABLET BY MOUTH ONCE DAILY DIRECTED 90 tablet 5Active metoprolol tartrate (Lopressor) 25 mg tablet Indications:Coronary artery disease of [place] artery [place] heart with stable angina pectorisTAKE 1 TABLET [...] 40 mg tablet Indications:Coronary artery disease of [place] artery [place] heart with stable angina pectorisTAKE 1 TABLET [...] once daily as directed. 90 capsule ctive potassium chloride CR (K-Tab) 20 mEq ER tablet Indications:HypokalemiaTake 2 tablets (40 mEq) by mouth once daily as directed. Do not crush, chew, or split. 180 tablet /ctive Active Problems ProblemNoted DateDiagnosed DatePrimary /06/6060Ymobuk03/06/2024Vertigo 02/28/2024bnormal MRI02/25/20248802Pzdgnrozpr67/03/2024erebrovascular disease 02/25/2024Eye exam /03/2024Tension type tazcgqdj88/03/2024hest pain 12/07/2022 Overview (12/07/2022): Added automatically from request for surgery [id number] Paroxysmal jddsmqorbop45/06/2020Prinzmetal xmwnqj8805/30/20200841Sgueh-Qtjxcaibd-Msqep qqtdokw0305/30/20202177Mcnsvt27/05/2014 Overview (09/25/2022): Last Assessment & Plan: She [...] for the next 7 days. Encounters DateTypeDepartmentCare IeprQutnyflaicb67/04/2025Orders Only [address] [place] [place] [address] Maria Dolores Jose MA Hypokalemia (Primary Dx)08/27/2025Telephone [facility] [address] [place] [address] Maria Dolores Jose MA 06/06/2025Telephone [facility] [address] [place] [facility] [place] [address] Maria Dolores Jose MA from Last 3 Months Family History Medical HistoryRelationNameCommentsHeart diseaseFatherSupraventricular tachycardiaMotherHeart diseasePaternal GrandfatherHeart diseasePaternal GrandmotherSupraventricular tachycardiaSisterRelationNameStatusCommentsFather MotherPaternal GrandfatherPaternal GrandmotherSister Social History Tobacco UseTypesPacks/DayYears UsedDateSmoking Tobacco: NeverSmokeless Tobacco: Never Tobacco Cessation:Counseling Given: No Alcohol UseStandard Drinks/WeekCommentsNot Currently0 (1 standard drink = 0.6 oz pure alcohol)UT Safety & EnvironmentAnswerDate RecordedFear of Current or Ex-PartnerNot on file12/16/2023Emotionally AbusedNot on file12/16/2023hysically AbusedNot on file12/16/2023Sexually AbusedNot on file12/16/2023hysically or Sexually AbusedNot on file4CommentsNoSex and Gender Information ValueDate RecordedSex Assigned at BirthNot on fileLegal DxzLmvoud06/29/2022 10:21 PM EDTGender IdentityNot on fileSexual OrientationNot on file Last Filed Vital Signs Vital SignReadingTime TakenCommentsBlood Zxoocebv121/7207 9:25 AM EDT Cjwur6365 9:25 AM EDTTemperature--Respiratory Lsij9309 3:30 PM ESTOxygen Bfclmiznff11%05/03/2025 9:25 AM EDTInhaled Oxygen Concentration-- Bkcqbp61.3 kg (208 lb)05/03/2025 9:25 AM QZLCfnmvb078.6 cm (5' 6 )05/03/2025 9:25 AM EDTBody Mass Index33.5707 9:25 AM EDT Plan of Treatment Health MaintenanceDue DateLast DoneCommentsCT Avdravgyjxdk1977Colonoscopy 1977Colorectal Cancer Ylefbwuur1977FIT-DNA1977FIT1977 FOBT1977 9490Xipxcwnsuxrwl1977Depression Uxaiypoem68/10/1989Hepatitis B Vaccines (1 of 3 - 19+ 3-dose series)1996Pneumococcal Vaccine: Pediatrics (0 to 5 Years) and At-Risk Patients (6 to 64 Years) (1 of 2 - PCV)1996Pap Smear1998Adult Dvlidgv0509/03/1999Cervical Cancer Whdnohyhm73/10/2007 HPV/Evvurj1709/03/20071125Xnlowxtto92/10/2017COVID-19 Vaccine ( season) , 11/21/2020, 10/23/2020Influenza Vaccine [...] on patient's age to complete this topic Insurance MemberSubscriberPlan / Payer (Effective 2022-Present)Name:Elif Fox Member ID:[id number] Relation to Subscriber:SelfName:Elif Fox Subscriber ID:[id number] Payer ID:[id number] (NAIC) Type:Not on file Address: [address] [place] [address] Care Teams Team MemberRelationshipSpecialtyStart DateEnd Date Pat Dominique MD [address] [facility] [address] PCP - Vtwxnev47/2/22
--- OUTSIDE RECORDS SUMMARY | 2025-09-06 07:08 | XMS_ITS | Patient Health Record ---
Author Organization [facility] Address [address] [place] [address] Care Team Providers Care Residential Treatment Staff Name Role Phone Pat Dominique MD Primary Care Provider UnavailRudolph Sun Unavailable [phone] Allergies Allergen (clinical drug ingredient) Drug/Non Drug Allergy documented on EMR Reaction Allergy Type Onset Date Status Darvocet-N 100vomitingDrug AllergyActivemeperidineDemerolvomitingDrug Allergy ActiveLevaquinhivesDrug AllergyActiveacetaminophen / oxycodonePercocetvomiting Drug AllergyActive Results Component Value Reference Range Notes HEMOGLOBIN Reviewed date:01/23/2025 07:30:06 AM Interpretation: Performing Lab: Notes/Report: [facility] , Hemoglobin 13.5 12.0-16.0 g/dL Performing Lab:see noteML - [facility] LBXR Chest PA and Lateral (Routine CXR) * Reviewed date:01/18/2025 01:36:46 PM Interpretation: Performing Lab: Notes/Report: XR chest 2V Reviewed date:01/23/2025 08:08:00 AM Interpretation: Performing Lab: Notes/Report: Source Facility: [facility]-[address] [place] [address] [place] [address] XRay Report Signed Patient: ELVIA GUTIÉRREZ MR#: [id number] : 1975 Acct:[id number] Age/Sex: 49 / F ADM Date: 01/18/25 Loc: RAD Attending Dr: Rudolph Gonsalves D.O. Ordering Physician: Rudolph Gonsalves D.O. Date of Service: 01/18/25 Procedure(s): XR chest 2V Accession Number(s): [id number] cc: Pat Dominique M.D.; Rudolph Gonsalves D.O. [place] [address] Patient Name: ELVIA GUTIÉRREZ MRN: [id number] date: 1975 Sex: F Assigned Patient Location: [facility] Current Patient Location: [facility] Accession/Order Number: [id number] Exam Date: 01/18/2025 13:05 Report Date: 01/18/2025 [...] IMPRESSION: No acute process. Impression dictated by: Sina Ruiz M.D.01/18/2025 1:06 PM Dictation Location: [place] [address] Electronically authenticated by: [id number] Y Date: 01/18/2025 13:06 Dictated By: Sina Ruiz D.O. Signed By: 01/18/25 1309 DD/ 1306 TD/TT: Calenderer:RT pulmonary function test Reviewed date:01/25/2025 04:34:13 PM Interpretation: Performing Lab: Notes/Report: Source Facility: [place] [address] [place] [address] Respiratory Report Signed Patient: ELVIA GUTIÉRREZ MR#: [id number] : 1975 Acct:[id number] Age/Sex: 49 / F ADM Date: 01/18/25 Loc: RAD Attending Dr: Rudolph Gonsalves D.O. Ordering Physician: Rudolph Gonsalves D.O. Date of Service: 01/18/25 Procedure(s): RT pulmonary function test Accession Number(s): [id number] cc: [facility] Test Date: 2025-01-18 Pat Name: ELVIA GUTIÉRREZ Department: Room: - Gender: Female Night Supervisor: Rodolfo Morales RRT : 1975 Requested By: Rudolph Gonsalves Order Number: [id number] Reading MD: Rudolph Gonsalves Interpretive Statements Pulmonary [...] Signed By: 01/25/25 1628 DD/ 1248 TD/TT: Calenderer: Reason For Referral No Information Medications Medication [...] Administration Date Status Comme nts Flu, Flucelvax (99284) 6 mos and older, single-dose syringe (4220-4622) Unknown 08/16/2024 Administered SARS-COV-2 (COVID 19 Moderna - Booster 0.25mL)Prqhmxb8608/20/2021dministered Social History Tobacco Use: Social History Observation Description Date Details (start date - stop date) Never Smoker NA - NA Tobacco Control (Standard) Question Answer Notes Tobacco use: Nonsmoker Problems Problem Type SNOMED Code ICD Code Onset Dates Problem Status W/U Status Risk Notes Problem Shortness of breath (692786301) Shortness of breath (R06.02) ActiveconfirmedProblemHyperlipidaemia (66017390)HLD (hyperlipidemia) (E78.5) Activeconfirmed Vital Signs Heart Rate 66 /min 01/23/2025 Ljnifkiyiov14.0 degrees Bhzmsyfiji61/01/2025Respiratory Rate18 /min01/23/2025 Rgjgxtzd27 %01/23/2025lood pressure pruurkppc88 mm Hg01/23/20258489Bdornx93 in 01/23/2025lood pressure bdclomvw472 mm Hg01/23/20256870Apudmr874.6 lbs01/23/2025MI 35.04 kg/m201/23/2025 Procedures Procedure Date Ordered Date Performed Result Body Sit e PFT (57874, 88185, 78596) 12/27/2024 01/18/2025 N/A Encounters Encounter Location Date Provider Diagnosis [facility] [address] [place] [address] 12/27/2024 Rudolph Gonsalves Abnormal results of pulmonary function studies R94.2 and Patent foramen ovale Q21.12 [facility] [address] [place] [address] 01/23/2025 Rudolph Gonsalves Abnormal results of pulmonary [...] and cardiopulmonary vascular disease. A PFO with xcpfb-rs-pdqh shunt could cause a decreased DLCO. No [...] ACCESS PPO PLUS LOCAL PLAN [address] [place] [phone] [id number] Kwasi Gutiérrez - patient is the insured Medical (General) History Medical History History ICD Code PFO (patent foramen ovale) Q21.12 Abnormal diffusion capacity determined b y pulmonary function test R94.2 HLD (hyperlipidemia) E78.5 Surgical History Surgery Date(Month/Year) hysterectomy tubal ligationright knee arthroscopyrhinoplasty
--- OUTSIDE RECORDS SUMMARY | 2025-09-06 07:08 | XMS_ITS | Encounter Summary ---
Author Organization [facility] Address [address] [place] [address] Care Team Providers Care Store Leader Name Role Phone Pat Dominique MD Primary Care Provider [phone] Minal Petty NP Unavailable [phone] Nell Aguilar DO Unavailable [phone] Encounter Details DateTypeDepartmentCare Team (Latest Contact Info)Ikdxysownqk22/23/2024Clinisync Result Encounter [facility] Unsolicited Minal Petty NP Social History Tobacco UseTypesPacks/DayYears UsedDateSmoking Tobacco: NeverSmokeless Tobacco: NeverAlcohol UseStandard Drinks/WeekCommentsNever0 (1 standard drink = 0.6 oz pure alcohol)CommentsUnknownSex and Gender InformationValueDate Recorded Sex Assigned at ZtutsAvzbqp59/05/2024 3:50 PM EDTLegal DbmAjwjep16/15/2023 7:17 PM EDTGender JihgazceCeeqpz83/05/2024 3:50 PM EDTSexual OrientationNot on file documented [...] Narrative 03/16/2024 5:06 PM EDT [facility] ?[address] ? [place] [address] ? Magnetic Resonance Report ? Signed ? Patient: GUTIÉRREZ,ELVIA A ?MR#: [id number] ?? : 1975 ?Acct:[id number] ?? Age/Sex: 48 / F ?ADM Date: //24 ?? Loc: MRI ? Attending Dr: Minal Petty MANAGER OF INFORMATION ? Ordering Physician: Minal Petty NP ?? Date of Service: 03/16/24 ?? Procedure(s): MR head/brain wo/w con ?? Accession Number(s): [id number] ? cc: Pat Dominique M.D.; Minal Petty NP ? [facility] ? [address] ? [place] [address] ? Patient Name: ?? ELVIA Alexy GUTIÉRREZ ? MRN: [facility]:[id number] ? date: 1975 ?Sex: F ?? Assigned Patient Location: MRI ?? Current Patient Location: MRI ?? Accession/Order Number: [id number] ?? Exam Date: 03/16/2024 ??16:00 ?Report Date: [...] ?03/16/241705 ? DD/ 1704 ? TD/TT: ? New Car Inspector: Procedure Note Radiology, Radiologist, MD - 03/16/2024 [place] [address] Magnetic Resonance Report Signed Patient: ELVIA GUTIÉRREZ [facility]#: [id number] : 1975Acct:[id number] Age/Sex: 48 / FADM Date: 03/16/24 Loc: MRI Attending Dr: Minal Petty NP Ordering Physician: Minal Petty NP Date of Service: 03/16/24 Procedure(s): MR head/brain wo/w con Accession Number(s): [id number] cc: Pat Dominique M.D.; Minal Petty NP The [place] [id number] Patient Name: ELVIA GUTIÉRREZ MRN: [id number] date: 1975 Sex: F Assigned Patient Location: MRI Current Patient Location: MRI Accession/Order Number: [id number] Exam Date: 03/16/2024 16:00 Report Date: 03/16/2024 [...] Padgett M.D. Signed By:03/16/241705 DD/ 03 TD/TT: New Car Inspector: Authorizing ProviderResult TypeResult StatusAngela Malinda NPIMG XR PROCEDURES Final Result documented in this encounter Visit Diagnoses Not on filedocumented in this encounter Care Teams Team MemberRelationshipSpecialtyStart DateEnd Date Pat Dominique MD PCP - General02/27/24 Minal Petty NP PCP - [employer]/ Nell Aguilar DO [address] [place] [address] Referring AqmaeetdfPmdspgmls15/16/24documented as of this encounter
--- OUTSIDE RECORDS SUMMARY | 2025-09-06 07:08 | XMS_ITS | Encounter Summary ---
Author Organization [facility] Address [address] [place] [address] Care Team Providers Care Rotor Winder Name Role Phone Pat Dominique MD Primary Care Provider [phone] Encounter Details DateTypeDepartmentCare Team (Latest Contact Info)Yrxifnpbpwq63/04/2025Orders Only [facility] at [facility] [address] [place] [address] Maria Dolores Jose MA Hypokalemia (Primary Dx) Social History Tobacco UseTypesPacks/DayYears UsedDateSmoking Tobacco: NeverSmokeless Tobacco: NeverAlcohol UseStandard Drinks/WeekCommentsNot Currently0 (1 standard drink = 0.6 oz pure alcohol)[place] Safety & EnvironmentAnswerDate RecordedFear of Current or Ex-PartnerNot on file12/16/2023Emotionally AbusedNot on file12/16/2023hysically AbusedNot on file12/16/2023Sexually AbusedNot on file4Physically or Sexually AbusedNot on file4CommentsNoSex and Gender Information ValueDate RecordedSex Assigned at BirthNot on fileLegal AppKmxbun78/29/2022 10:21 PM EDTGender IdentityNot on fileSexual OrientationNot on filedocumented as of this encounter Plan of Treatment NameTypePriorityAssociated DiagnosesOrder ScheduleBasic metabolic panelLab Routine Hypokalemia Expected: 08/28/2025 (Approximate), Expires: 08/28/2026documented as of this encounter Visit Diagnoses Diagnosis Hypokalemia- Primary Hypopotassemia documented in this encounter Care Teams Team MemberRelationshipSpecialtyStart DateEnd Date Pat Dominique MD [address] [facility]A PCP - Gnrjpus81/2/22documented as of this encounter
--- OUTSIDE RECORDS SUMMARY | 2025-09-06 07:08 | XMS_ITS | Encounter Summary ---
Author Organization [facility] Address [address] [place] [address] Care Team Providers Care Development Intern Name Role Phone Pat Dominique MD Primary Care Provider [phone] Encounter Details DateTypeDepartmentCare Team (Latest Contact Info)Qrhbncjoprb31/03/2025Telephone [facility] at [facility] [address] [place] [address] Maria Dolores Jose MA Social History Tobacco UseTypesPacks/DayYears UsedDateSmoking Tobacco: NeverSmokeless Tobacco: NeverAlcohol UseStandard Drinks/WeekCommentsNot Currently0 (1 standard drink = 0.6 oz pure alcohol)[place] Safety & EnvironmentAnswerDate RecordedFear of Current or Ex-PartnerNot on file12/16/2023Emotionally AbusedNot on file12/16/2023hysically AbusedNot on file12/16/2023Sexually AbusedNot on file12/16/2023hysically or Sexually AbusedNot on file12/16/2023CommentsNoSex and Gender Information ValueDate RecordedSex Assigned at BirthNot on fileLegal YxhBadnef37/29/2022 10:21 PM EDTGender IdentityNot on fileSexual OrientationNot on filedocumented as of this encounter Miscellaneous Notes * Telephone Encounter - Maria Dolores Jose MA - 08/27/2025 4:49 PM EST Patient had labs drawn 08/22 for routine wellness. Her K was very low so she was advised to go to the ED. She said the ED doc gave her 4 days worth of potassium chloride. It was checked again today and results are scanned into sr. social media & mobile manager for your review. Did you want to give her more potassium? It's still low. Please advise. Thanks. documented in this encounter Plan of Treatment Not on file documented as of this encounter Visit Diagnoses Not on filedocumented in this encounter Care Teams Team MemberRelationshipSpecialtyStart DateEnd Date Pat Dominique MD [facility] #A PCP - Qrfqkyi94/2/22documented as of this encounter
[2025-09-06 09:15] LABS: Anion Gap 10.7; Blood Urea Nitrogen 8.0 mg/dL (7.0-18.0); Calcium 8.9 mg/dL (8.5-10.1); Carbon Dioxide 28.7 mmol/L (21.0-32.0); Chloride 103 mmol/L (98-107); Estimated GFR (African America >60 (>=60 mL/min/1.73m^2); Estimated GFR (Non-African Ame 52 (>=60 mL/min/1.73m^2); Glucose 99 mg/dL (74-106); Potassium 3.4 mmol/L (3.5-5.1); Sodium 139 mmol/L (136-145)
== END 2025-09-06 07:03 | disposition home or self-care (01) ==
LOC: LAB 07:04
PROVIDERS: PCP Family Medicine; Visit Provider Internal Medicine Interventional Cardiology
DX: E87.6 Hypokalemia (principal)
CPT/HCPCS: 36415; 80048

== ENCOUNTER 2025-09-12 06:51 | Outpatient (OUT) | payer BC, SELFPAY ==
--- OUTSIDE RECORDS SUMMARY | 2025-09-11 09:36 | XMS_ITS | Continuity of Care Document ---
Author Organization [facility] Address [address] [place] [address] Phone Care Team Providers Care Mimeographer Name Role Phone Pat Dominique MD Primary Care Provider Jose Wong DO Attending Provider Sina Hutson DO Attending Provider [phone] Vidhi Anderson A Attending Provider Nell Aguilar DO Attending Provider Care Teams Patient Care Team Team Status: Active Member Role/Relationship Status Dates Pat Dominique MD Primary Care Provider Active Visit Care Team Team Status: Active Member Role/Relationship Status Dates Pat Dominique MD Primary Care Provider Active Start: August 22, 2025 Chris Fofana ProviderActiveStart: August 22, 2025 Visit Care Team Team Status: Active Member Role/Relationship Status Dates Pat Dominique MD Primary Care Provider Active Start: August 27, 2025 Chris Young ProviderActiveStart: August 27, 2025 Patient Care Team Team Status: Active Member Role/Relationship Status Dates Pat Dominique MD Primary Care Provider Active Start: September 06, 2025 Ehab Alexy Monreal ProviderActiveStart: September 06, 2025 Patient Care Team Team Status: Inactive Member Role/Relationship Status Dates Pat Dominique MD Primary Care Provider Active Start: September 11, 2025 End: September 11, 2025Chris Garcia ProviderActiveStart: September 11, 2025 End: September 11, 2025 Chief Complaint and Reason for Visit Chief Complaint Admit Date Follow up September 11, 2025 2:00pm Reason for Visit Admit Date Abnormal brain MRI September 11, 2025 2:00pm CVD (cerebrovascular disease) August 252024 2:00pm Vertigo September 11, 2025 2:00pm Word finding difficulty September 11, 025 2:00pm Allergies, Adverse Reactions, Alerts Allergen Type Severity Reaction Last Updated Verified Status Comments levofloxacin Allergy Unknown Hives August 2:06pm Yes Active meperidineAllergyUnknownVomitingUn[facility]2024 2:06pmYesActiveoxycodone AllergyUnknownVomitingJames [facility]. [facility] 2024 2:06pmYesActivepropoxypheneAllergy UnknownVomitingUn[facility]2024 2:06pmYesActivesimvastatinAllergyUnknownHives September 11, 2025 2:06pmYesActiveDarvocet A500 *ANALGESICS - OPAllergyUnknown HivesOctmuhlenberg community hospital 2023 7:56amNoActiveFree Text Allergy: Darvocet A500 *ANALGESICS - OPIOID*; Onset Date: 10/27/2016 Social History Smoking Status Status Start Date End Date Date of Observa tion Never smoked tobacco (finding) April 20, 2022 4:30pm Observation Status Observation Response Date of Response Legal Sex Female (finding) [facility] Family History Relationship Condition Age at Onset Recorded Date/T porfirio father Hypertension Unknown Heart diseaseUnknownHistory of strokeUnknownmotherHypertensionUnknownHeart diseaseUnknown Problems Active Problems Problem Diagnosis/Recorded Date Onset Date Stat us Word finding difficulty May 24, 2025 3:36pm Unknown Active CVD (cerebrovascular disease) May 24, 2025 5:25pm U nknown Active Wellness examination August 23, 2024 10:36am Unknow n Active Vertigo May 24, 2025 5:25pm Unknown Activ e Bilateral hip pain August 23, 2024 10:38am Unknown Active Abnormal brain MRI May 24, 2025 3:36pm Unknown Active Medications Medication Status Dose Units Route Directions Qty Days Refills S tart Date Stop Date End Date Reason(s) Instructions Adherence Duloxetine 30 mg capsule,delayed release(DR/EC) Discontinued 1 CAP PO Daily August 22, 2024 11:00pmOct2023 10:19amFreeTextSig: Take 1 capsule by mouth every day; Note: Source Status: Taking; Refills: 0; Qty: 90 Capsule; Provider: Heather Mejia ( )Diltiazem Hcl 120 mg tabletDiscontinued2 TABPODailyMclaren [facility] 2023 11:00pmOct2023 10:20amFreeTextSi tablets Orally daily; Note: Source Status: Takingtotal of 240 mg; Provider: Trip Stewart ( )Isosorbide Mononitrate 60 mg tablet extended release 24 ynYvlajnhxnull4JABQGWbpsbKcykmhx 2023 11:00pmOctmuhlenberg community hospital 2023 10:20amFreeTextSi tablet in the morning Orally Once a day; Note: Source Status: Izzldx149 mg; Provider: Trip Stewart ( )Duloxetine (Cymbalta) 30 mg capsule,delayed release(DR/EC)Gtamqp96GDZAConioOdvxerh 2023 11:00pmComplies with drug therapyIsosorbide Mononitrate 120 mg tablet extended release 24 puAgsjle486QZCGVyktlKqzbfzq 2023 11:00pmComplies with drug therapyDiltiazem Hcl (Cardizem Cd) 240 mg capsule,extended release 24hr Uyajjvsylchu304OYAGTlqdgMihtdgb 2023 11:00pmOctmuhlenberg community hospital 2023 10:19am Citalopram 20 mg tabletDiscontinuedMGPOMclaren Port [facility]on Hospital 2023 11:00pmJuly 2024 3:19pmFreeTextSig: Citalopram Hydrobromide( 20MG Oral 2 times daily ) Active -Hx Entry Oral 2 times daily; Note: Source Status: Taking*Pick strength-form from [facility] for eRX*; Provider: Trip Stewart ( )Bupropion Hcl 100 mg jhztnoPqejjzgdmfrf310JPJYToznk daily August 22, 2024 11:00pmJu2024 3:19pmDiltiazem Hcl 120 mg tablet Pzvnbbunzjfj767EKBYZibubSyggfwz 30th, 2024 10:19amJuly 2024 3:19pm FreeTextSi tablets Orally daily; Note: Source Status: Takingtotal of 240 mg; Provider: Trip Stewart ( )Diltiazem Hcl (Cartia Xt) 240 mg capsule,extended release 24hrDiscontinuedMGPOJu2024 11:00pmNov2024 2:07pmClopidogrel (Plavix) 75 mg rtqtkqHmdgsq10DKIGLunbqYrii 30th, 2025 11:00pmComplies with drug therapyNitroglycerin 0.4 mg tablet, sublingual Active0.4MGSUBLINGUALOnceJu2024 11:00pmComplies with drug therapy Aspirin 81 mg vnbabdZaslor55HSCCIjxxnIvnx 30th, 2025 11:00pmComplies with drug therapyHydrochlorothiazide 25 mg bvtzffLvukdh94YPACFilozYuam 30th, 2025 11:00pm Complies with drug therapyRosuvastatin 40 mg oiymzoOgujhk30IAJDXowcaRjen 30th, 2025 11:00pmComplies with drug therapyBupropion Hcl (Wellbutrin Xl) 300 mg tablet extended release 24 zeCpdakj337HIJCIkzyc morningMay 23, 2025 11:00pm Complies with drug therapyMetoprolol Tartrate 25 mg pgjramZhswsjwrvkvm48UXWD DailyJu2024 11:00pmSeptember 11, 2025 2:07pmDiltiazem Hcl (Cartia Xt) 240 mg capsule,extended release 24hrActiveMGPODailySeptember 11, 2025 2:06pm Complies with drug therapyMetoprolol Tartrate 25 mg pwfhofHizzcg49DKZJZiptn dailySeptember 11, 2025 2:06pmComplies with drug therapy Relevant Diagnostic Tests and/or Laboratory Data Laboratory Results Test Collection Date/Time Result Date/Time Result Interpretation Reference Range Result Comment Performing Site Estimated Average Glucose August 22, 2025 6:17am August 22, 2025 6:17am 105 mg/dL Cholesterol/HDL RatioOctmuhlenberg community hospital 2024 6:17am2.63.3 - 4.4 LOW RISK4.4 - 7.1 AVERAGE RISK7.1 - 11.0 MODERATE RISK>11.0 HIGH RISKAnion GapOctmuhlenberg community hospital 2024 6:17am12.1Basophils # (Auto)August 22, 2025 6:17amOctober 2024 6:17am 0.0 10 3/uL0.0-0.1Anion GapNovhopi health care center 2024 8:06amNovember 2024 8:06am9.4 Anion GapNovhopi health care center 2024 7:16amNovember 2024 7:16am10.7Hemoglobin A1c August 22, 2025 6:17amOctober 2024 6:17am5.3 %4.5-6.2ADA RECOMMENDED LIMIT 4.0 - 6.0ADA THERAPEUTIC TARGET < 7.0ACTION SUGGESTED> 7.0Cholesterol LevelOctmuhlenberg community hospital 2024 6:85zq521 mg/dL<=200Albumin/Globulin RatioOctmuhlenberg community hospital 2024 6:17am0.9Basophils (%) (Auto)August 22, 2025 6:17amOctober 2024 6:17am0.4 %0.2-2.0BUN/Creatinine RatioNovest. mary's hospital 2024 8:06amNovember 2024 8:06am7.0BUN/Creatinine RatioNovest. mary's hospital 2024 7:16amNovember 2024 7:16am7.2HDL CholesterolOctmuhlenberg community hospital 2024 6:17am44 mg/dL40-60> or =60 mg/dl - LOW CARDIOVASCULAR RISK<40 mg/dl - HIGH CARDIOVASCULAR RISKAlbuminOctmuhlenberg community hospital 2024 6:17am3.4 g/dL3.4-5.0Eosinophils # (Auto)August 22, 2025 6:17amOctober 2024 6:17am0.3 10 3/uL0.0-0.7Blood Urea NitrogenNov2024 8:06am August 27, 2025 8:06am8.0 mg/dL7.0-18.0Blood Urea NitrogenNovember 2024 7:16amNovember 2024 7:16am8.0 mg/dL7.0-18.0LDL Cholesterol, Calculated August 22, 2025 6:17am45.8 mg/dL<100 mg/dl AHDCCZU310-627 mg/dl NEAR OR ABOVE BNXKNGZ173-394 mg/dl BORDERLINE ZWWL019-179 mg/dl HIGH>190 mg/dl VERY HIGH Alkaline PhosphataseOctober 2024 6:17am60 U/G74-530Rmwbbrzuotx (%) (Auto) August 22, 2025 6:17amOctober 2024 6:17am3.4 %0.9-7.0Calcium Level August 27, 2025 8:06amNovemb2024 8:06am8.7 mg/dL8.5-10.1Calcium Level September 06, 2025 7:16amNovemb2024 7:16am8.9 mg/dL8.5-10.1 Triglycerides LevelOctober 2024 6:48ep043 mg/dL<=150Alanine Aminotransferase (ALT/SGPT)August 22, 2025 6:17am25 U/K52-42HmskqbovsuRhhpyjs 29th, 2025 6:17amOct2024 6:17am40.2 %36.0-48.0Chloride LevelAugust 27, 2025 8:06amNovemb2024 8:84xr640 mmol/X04-142Zrelnkyh LevelNov2024 7:16amNovember 2024 7:81ur430 mmol/E67-911SGLI Cholesterol August 22, 2025 6:17am23.2 mg/dLAspartate Amino Transf (AST/SGOT)August 22, 2025 6:17am21 U/U17-65VgujfugcsyYgwjnth 2024 6:17amOctober 2024 6:17am14.0 g/dL12.0-16.0Carbon Dioxide LevelNov2024 8:06am August 27, 2025 8:06am30.0 mmol/L21.0-32.0Carbon Dioxide LevelNovember 2024 7:16amNovember 2024 7:16am28.7 mmol/L21.0-32.0BUN/Creatinine Ratio August 22, 2025 6:17am10.2Immature Granulocyte # (Auto)August 22, 2025 6:17amOctober 2024 6:17am0.03 10 3/uL0.00-0.03CreatinineAugust 27, 2025 8:06amNovember 2024 8:06am1.14 mg/dLAbove high normal0.55-1.02Creatinine September 06, 2025 7:16amNovember 2024 7:16am1.11 mg/dLAbove high normal 0.55-1.02Blood Urea NitrogenOctober 2024 6:17am12.0 mg/dL7.0-18.0Immature Granulocyte % (Auto)August 22, 2025 6:17amOctober 2024 6:17am0.3 % 0.0-0.5Estimated GFR ()August 27, 2025 8:06amNovemb2024 8:06am>60>=60 mL/min/1.73m 2Estimated GFR ()September 06, 2025 7:16amNovember 2024 7:16am>60>=60 mL/min/1.73m 2Calcium LevelOct2024 6:17am8.8 mg/dL8.5-10.1Lymphocytes # (Auto)August 22, 2025 6:17am August 22, 2025 6:17am2.7 10 3/uL1.2-3.8Estimated GFR (Non- August 27, 2025 8:06amNovemb2024 8:41lj15Nyohy low normal>=60 mL/min/1.73m 2Estimated GFR (Non- AmericanSeptember 06, 2025 7:16am September 06, 2025 7:10az14Vnbup low normal>=60 mL/min/1.73m 2Chloride Level August 22, 2025 6:01tj671 mmol/O29-634Vufoqkpxrfn (%) (Auto)August 22, 2025 6:17amOctober 2024 6:17am29.6 %20.5-60.0Glucose LevelNov2024 8:06amNovember 2024 8:06am95 mg/mX53-262Ejhomwc LevelNovember 2024 7:16amNovember 2024 7:16am99 mg/aH23-092Arpvyv Dioxide LevelOctober 2024 6:17am26.8 mmol/L21.0-32.0Mean Corpuscular HemoglobinOctober 2024 6:17amOct2024 6:17am30.8 pg26.7-34.0Potassium LevelNov2024 8:06amNovember 2024 8:06am3.4 mmol/LBelow low normal3.5-5.1Potassium LevelNov2024 7:16amNovember 2024 7:16am3.4 mmol/LBelow low normal3.5-5.1CreatinineOctober 2024 6:17am1.18 mg/dLAbove high normal 0.55-1.02Mean Corpuscular Hemoglobin ConcentOctober 2024 6:17amOctober 2024 6:17am34.8 g/dL29.9-35.2Sodium LevelNov2024 8:06amNovemb2024 8:83ft141 mmol/V705-789Rqatua LevelNovember 2024 7:16amNovember 2024 7:43ez106 mmol/H931-957Kxcqrvhwi GFR ()August 22, 2025 6:82sb17Imjnv low normal>=60 mL/min/1.73m 2Mean Corpuscular VolumeOctober 2024 6:17amOctober 2024 6:17am88.4 fL81.0-99.0Estimated GFR (Non- AmericanOctober 2024 6:88gc13Hwlay low normal>=60 mL/min/1.73m 2 Monocytes # (Auto)August 22, 2025 6:17amOctober 2024 6:17am0.7 10 3/uL 0.3-0.8GlobulinOctober 2024 6:17am3.6 g/dLMonocytes (%) (Auto)August 22, 2025 6:17amOctober 2024 6:17am7.6 %1.7-12.0Glucose LevelOctober 2024 6:59fn318 mg/jY51-179Wgzy Platelet VolumeOctober 2024 6:17am August 22, 2025 6:17am9.5 fL9.5-13.5Potassium LevelOctober 2024 6:17am 2.9 mmol/LBelow lower panic limits3.5-5.1RESULTS CALLED TO HALIE MARCIAL LPN at 1052Neutrophils # (Auto)August 22, 2025 6:17amOctober 2024 6:17am5.3 10 3/uL1.4-6.5Sodium LevelOctober 2024 6:71ea873 mmol/I752-372Mjltkdxefgm (%) (Auto)August 22, 2025 6:17amOctober 2024 6:17am58.7 %43.0-75.0Total BilirubinOctober 2024 6:17am0.5 mg/dL0.2-1.0Platelet CountOctober 2024 6:17amOctober 2024 6:06aq752 10 3/kZ191-217Ylwwc ProteinOctober 2024 6:17am7.0 g/dL6.4-8.2Red Blood CountOctober 2024 6:17amOctober 2024 6:17am4.55 10 6/uL4.20-5.40Red Cell Distribution WidthOctober 2024 6:17amOctober 2024 6:17am12.3 %11.0-15.0Corrected White Blood CountOctober 2024 6:17amOctober 2024 6:17am9.0 10 3/uL4.0-11.0 Vital Signs Vital Reading Result Reference Range Collection Date/Time Height 64 [in_i] September 11, 2025 2:43izUdscoa38.03 kgSeptember 11, 2025 2:03pmHeart Rate65 /qvj49-483WzeiuaojSeptember 11, 2025 2:03pmOxygen saturation by Pulse neuwiwfl27 % 95-100September 11, 2025 2:03pmBP Eokwiswh768 mm[Hg]100-140September 11, 2025 2:03pmBP Zttxtrhah40 mm[Hg]60-100September 11, 2025 2:03pmBMI (Body Mass Index) 37.0 kg/j8PrtmqbmgSeptember 11, 2025 2:03pm Advance Directives Advance Directive Response Recorded Date/ Time Advance Directives No August 9:55am Insurance Providers Guarantor Elif Fox Address [address] [address] Info.Home Phone: Coverage Status Update:2025 Payer Group Member ID Coverage Type Subscriber Relationship to Subscriber Effective Date Expiration Date Ousmane ADAMS [id number] A Watson Id: [id number] [address] [facility] [address] Home Phone: SelfSelf Pay Id: [id number] Encounters Encounter Location(s) Arrival/Admit Date Discharge/Departure Date Discharge/Departure Disposition Provider(s) Non-patient / Non-visit -[facility] 2024 7:17am Agnes Fofana-patient / Fep-zvkfi-[facility] Karinoveyuan 2024 8:06amAnder Dominique-patient / Dkl-nfpwt-[facility] Karinovembsania 2024 7:16amEfelipe WardyDeparted Physician/Provider Office Visit-[facility] 2024 2:00pm September 11, 2025 2:35pmDischarged to home care or self care (routine discharge)Nell Aguilar , DO Recent Diagnosis Onset Date Admit Date Abnormal brain MRI Unknown August 2:00pm CVD (cerebrovascular disease) Unknown No vember 2024 2:00pm Vertigo Unknown September 11, 025 2:00pm Word finding difficulty Unknown September 11, 2025 2:00pm Assessments Diagnosis Onset Date Resolution Status Admit Date Abnormal brain MRI acuteNovember 2024 2:00pmCVD (cerebrovascular disease)acuteNovember 2024 2:00pmVertigoacuteNovember 2024 2:00pmWord finding difficultyacute September 11, 2025 2:00pm Plan of Treatment [facility]06mq80-yjyi-pgw female who comes in with multiple issues. Most recent concern is she has had two spells where she could not get words out and lasted about 5-15 minutes. First time was May 2024 and other spell a few months ago. It is time to update her brain MRI and this will also assess for stroke. She denies any other signs or symptoms of stroke. She has not missed any doses of Plavix or asa. She had some left pupillary anisocoria with dilatation that is occurring on and off and etiology is unclear. She did see Dr. Soto who is sending her over as she did not find any reason for this. She does have some mild anisocoria now with the left pupil at approximate 4 mm and right pupil at 2.5 mm which is a normal variation however she states at times it does look like the pupils blown. She does not use any sort of scopolamine patches. MRA of the brain was normal. She does have a history of abnormal MRIs with what appears to be small vessel changes. We have updated these several times and no interval changes. Most recent is 02/2024 lesions most likely to continue to be consistent with microvascular ischemic changes. However, traumatic brain injury (which she denies), demyelinating process or vasculitis are in the differential diagnosis. No other signs or symptoms to support MS. We will continue to image and we wait one year from this image unless we are concerned with any MS symptoms. Denies any vision changes. We will order today to update. . 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 She never started the Elavil that was ordered Her dizziness has resolved as she has not had a spell in many months. It was a feeling of swaying denied true vertigo sensation. She feels this is more of being sideways . Antivert was not helpful and kept her awake. Remain stable. She is getting about 7-8 hours of sleep and is rested during the day. Her insomnia is much better. Tremors remain stable and not problematic. She can get some vasovagual presyncope when she laughs hard. . She sees Dr. Martel for cardio. PFO was better on last echo in May 2024. It is not at surgical intervention size at this time, is being monitored closed. Stress test next week and then f/u in a few weeks after. . Review and summary of old records: 02/16/2023 did reveal mild cerebellar tonsillar ectopia 2mm below foramen magnum that could be incidental or due to chronic headaches, this was a new finding from previous studies with the last one being 05/2021, hyperintensitites typically associted with chronic small vessel changes, demyelinating process, or sequela of chronic migriane headaches. Recent MRI 08/18/2023 stable mild cerebellar tonsillar ectopia, and stable appearance of few small periventricular T2 hyperintensities within the deep white matter nonspecific but suspicious for demyelinating process, no new findings or enhancement to suggest active demyelination. 02/2024 MRI brain w and w/o no acute intracranial process no significant interval change in the white matter changes in the kathryn in the salazar radiata left frontal and parietal lobes. Statistically these lesions are most likely consistent with microvascular ischemic changes. However, traumatic brain injury demyelinating process or vasculitis are in the differential. No new lesions, no abnormal enhancing lesions. . She has a hx of CAD and was on aspirin and nitroglycerin. Asa now replaced with plavix. She had a heart cath that did show some moderate blockages that is being monitored. She does report 45% blockage in one vessel. She has nitro prn for chest pain. 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 . . . Plan: Continue with stress test, echo and cardio follow up in next week. monitor symptoms continue the hydrochlorothiazide 25 mg in the am Repeat brain MRI w and w/o as it has been over one year (in one year from 02/2024) monitor tremor sensation Monitor for any further spells and call in if so and will order EEG The patient was counseled on proper sleep hygiene and adequate hours of sleep. This was discussed with the patient, all questions were answered and they agreed with the treatment plan. The patient is to call with any worsening of the condition or new symptoms. Future Tests Future scheduled test information is unavailable Pending Tests Pending diagnostic test information is unavailable Future Visits Future appointment information is unavailable Future Procedures Future procedure information is unavailable Future Medications Future medication information is unavailable Patient Instructions Patient instructions are unavailable
--- OUTSIDE RECORDS SUMMARY | 2025-09-12 06:55 | XMS_ITS | CCD ---
Author Organization [facility] Care Team Providers Care Talking Books Library Clerk Name Role Phone ALESSANDRO LIN Admitting Unavailable ALESSANDRO LIN Attending Unavailable PAT HUSTON Referring Unavailable ROBEL, PAT Primary Care Unavailable Pat Huston Unavailable ROBEL, DR PAT Kumari Admitting Unavailable HUSTON, DR PAT Kumari Attending Unavailable HUSTON, DR PAT Kumari Primary Care Unavailable [place], DR NILESH Foy Consulting Unavailable HUSTON, DR [...] Care Provider MD Pat Huston Attending Provider [phone] Pat Huston Admitting Unavailable Pat Huston Primary Care Unavailable Pat Huston Attending Unavailable Kevon Samuel Admitting Unavailab Kevon Morejon Attending Unavailab Pat Mcgovern Primary Care Unavailable Pat Huston MD Primary Care Provider [phone] Addiedusty PARKS Jl Unavailable HARLAN NIÑO Attending Unavailable HARLAN NIÑO Attending Unavailable Pat Huston MD Primary Care Provider [phone] Harlan Niño APRN Attending Provider Pat Huston MD Primary Care Provider Harlan Niño NP Unavailable [phone] Addie PARKS Jl Unavailable VIDHI ANDERSON Attending Unavailable Allergies Allergy ClassificationReported Allergen(s)Allergy TypeDate of OnsetReaction(s) Facility (2 sources)Acetaminophen / oxyCODONEDrug Htloidq11-73-3849Luo [facility] Repository (8 sources)levoFLOXacinDrug Rlbkbhy29-85-2522roilpPkxMercy Health [facility] (2 sources)MeperidineDrug Fofubut15-32-5895Ndv [facility] Repository (2 sources)Darvocet-N 100Drug allergy (disorder)17-98-8096Sgg [facility] Repository (6 sources)Acetaminophen / oxyCODONEDrug AllergyUnkRealDProvidence [facility] Other (6 sources)Acetaminophen / PropoxypheneDrug AllergyUnkRealDCarondelet Health [employer] Other (10 sources)Meperidine; Translations: [MEPERIDINE]Drug Lbaecbx32-15-1571VbhcggbSt. [facility] (8 sources)SimvastatinDrug Eswsbmt12-51-5725QznguubHenry County Hospital (1 source)Tylenol-Codeine #3Drug allergy (disorder)[facility] (5 sources)Allergies ReconciledPropensity to adverse reactionsUnknownNorth [employer] Other (5 sources)patient allergy list reviewed by nurse or physiciaPropensity to adverse byiejnuuq30-33-5012Yefzqpt:[facility] [employer] Other (5 sources)Darvocet A500 *ANALGESICS - OPIOID*Propensity to adverse reactions 76-60-5195DqjvkkiCzhof [employer] Other (2 sources)Acetaminophen; Translations: [acetaminophen]Drug Vplkzfw10-65-9161 [facility] (5 sources)levoFLOXacin; Translations: [levofloxacin]Drug Wjacqjl70-78-1775NyxzlCleveland Clinic Lutheran [facility] (4 sources)oxyCODONE; Translations: [oxycodone]Drug Klzvnpj59-19-4712FdpekfibSelect Medical Specialty Hospital - [facility] (4 sources)Propoxyphene; Translations: [propoxyphene]Drug Pfcgput00-30-0208 [facility] (1 source)MeperidineDrug Wdpguki82-68-2783OgfefbhyhWood County Hospital Repository (2 sources)Darvocet A500 *ANALGESICS - OPAllergy to ixoqgxyrp82-84-4313UbfkwCleveland Clinic Lutheran HospitalComment on above:Free Text Allergy: Darvocet A500 *ANALGESICS - OPIOID*; Onset Date: 10/27/2016 (5 sources)Acetaminophen / oxyCODONE; Translations: [OXYCODONE-ACETAMINOPHEN] Drug Tdowvti02-21-5150UJ intoleranceMid Missouri Mental Health Center (4 sources)MeperidineDrug Fvmcgdp23-65-8588KC intoleranceMid Missouri Mental Health Center (1 source)PROPOXYPHENE N-ACETAMINOPHEN; Translations: [PROPOXYPHENE N-ACETAMINOPHEN]Propensity to adverse reactions to drug (disorder)12-15-2013 [facility] Repository Medications Current Medications MedicationDrug Class(es)DatesSig (Normalized)Sig (Original)aspirin 81 mg oral tablet (1 source)Platelet Aggregation Inhibitor, Nonsteroidal Anti-inflammatory Drug Start: 27-84-4737taka 1 tablet by mouth once dailyAspirin 81 mg tablet Active 81 MG PO Daily May 24, 2025 12:00am Complies with drug vxetlkj75 hr buPROPion hydrochloride 300 mg extended release oral tablet (20 sources)AminoketoneStart: 34-91-8978jsmu 1 tablet by mouth once daily in the morningBupropion Hcl (Wellbutrin Xl) 300 mg tablet extended release 24 hr Active 300 MG PO Every morning May 24, 2025 12:00am Complies with drug therapyStart: 08-23-2024 End: 82-45-9146stcj 1 tablet by mouth twice dailyBupropion Hcl 100 mg tablet Discontinued 100 MG PO Twice daily August 23, 2024 12:00am May 24, 2025 4:19pmStart: 94-30-7379jgIAHBfiu HCl 100MG BuPROPion HCl( 100MG Oral 2 times daily ) Active -Hx Entry Oral 2 times daily for 0 *Pick strength-form from [employer] for eRX* Jun, Activeclopidogrel 75 mg oral tablet (4 sources)P2Y12 Platelet InhibitorStart: 62-74-6135gycr 1 tablet by mouth once dailyClopidogrel (Plavix) 75 mg tablet Active 75 MG PO Daily May 24, 2025 12:00am Complies with drug therapyStart: 12-01-2023 End: 96-97-0743gvse 1 tablet by mouth once dailyclopidogrel (Plavix) 75 MG tablet Take 75 mg by mouth Daily 12/01/2023 11/30/2024 Qyabfh96 hr dilTIAZem hydrochloride 240 mg extended release oral capsule (20 sources)Calcium Channel BlockerStart: 92-00-2714arjk 1 mg by mouth every twenty-four hoursDiltiazem Hcl (Cartia Xt) 240 mg capsule,extended release 24hr Active MG PO May 24, 2025 12:00amComplies with drug therapyStart: 08-23-2024 End: 95-58-2082sagg 1 capsule by mouth once daily, then take 1 capsule by mouth every twenty-four hoursDiltiazem Hcl (Cardizem Cd) 240 mg capsule,extended release 24hr Discontinued 240 MG PO Daily August 23, 2024 12:00am August 23, 2024 11:19amStart: 08-23-2024 End: 32-00-5055qqob 2 tablets by mouth once dailyDiltiazem Hcl 120 mg tablet Discontinued 120 MG PO Daily August 23, 2024 11:19am May 2454:19pm FreeTextSi tablets Orally daily; Note: Source Status: Takingtotal of 240 mg; Provider: Robel Stewart ( )Start: 08-23-2024 End: 49-60-9168mukp 2 tablets by mouth once dailyDiltiazem Hcl Discontinued 2 TAB PO Daily August 23, 2024 12:00am August 23, 2024 11:20am FreeTextSi tablets Orally daily; Note: Source Status: Takingtotal of 240 mg; Provider: Robel Stewart ( )Start: 12-01-2023 End: 50-21-5343vwsg 1 capsule by mouth in the morning, then take 1 capsule by mouth every twenty-four hoursdilTIAZem CD (Cardizem CD) 120 MG 24 hr capsule Take 120 mg by mouth in the morning. 12/01/2023 ActiveStart: 68-74-6121kauk 240 mg by mouth once dailyCardizem CD 240MG Cardizem CD( 240MG Oral daily ) Active - Hx Entry Oral daily for 0 *Pick strength-form from [employer] for eRX* Jun, Activetake 2 tablets by mouth every twenty-four hoursCardizem 120 MG 2 tablets Orally daily total of 240 mg ActiveDULoxetine 30 mg delayed release oral capsule (20 sources)Serotonin and Norepinephrine Reuptake InhibitorStart: 08-23-2024 End: 03-99-7443qxds 1 capsule by mouth once dailyDuloxetine (Cymbalta) 30 mg capsule,delayed release(DR/EC) Active 30 MG PO Daily August 232:00am Complies with drug therapyhydroCHLOROthiazide 25 mg oral tablet (5 sources)Thiazide DiureticStart: 12-01-2023 End: 31-59-2921fuis 1 tablet by mouth once dailyHydrochlorothiazide 25 mg tablet Active 25 MG PO Daily May 24, 2025 12:00am Complies with drug therapy metoprolol tartrate 25 mg oral tablet (5 sources)beta-Adrenergic BlockerStart: 12-01-2023 End: 21-75-6313xmqf 1 tablet by mouth once dailyMetoprolol Tartrate 25 mg tablet Active 25 MG PO Daily May 24, 2025 12:00am Complies with drug therapy nitroglycerin 0.4 mg sublingual tablet (5 sources)Nitrate VasodilatorStart: 68-22-8203qogo 1 tablet under the tongue onceNitroglycerin 0.4 mg tablet, sublingual Active 0.4 MG SUBLINGUAL Once May 24, 2025 12:00am Complies with drug therapynitroglycerin (Nitrostat) 0.[address] 0.4 mg under the tongue every 5 (five) minutes if needed for chest pain Activerosuvastatin calcium 40 mg oral tablet (5 sources)HMG-CoA Reductase InhibitorStart: 12-01-2023 End: 68-90-7788oray 1 tablet by mouth once dailyRosuvastatin 40 mg tablet Active 40 MG PO Daily May 24, 2025 12:00am Complies with drug therapy Completed/Discontinued Medications MedicationDrug Class(es)DatesSig (Normalized)Sig (Original)citalopram 20 mg oral tablet (7 sources)Serotonin Reuptake InhibitorStart: 08-23-2024 End: 02-69-4042Jgixcylutt 20 mg tablet Discontinued MG PO August 23, 2024 12:00am May 24, 2025 4:19pm FreeTextSig: Citalopram Hydrobromide( 20MG Oral 2 times daily ) Active -Hx Entry Oral 2 times daily; Note:Source Status: Taking*Pick strength-form from [employer] for eRX*; Provider: Robel Stewart ( )Start: 76-45-2355Etsgoeyboy Hydrobromide 20MG Citalopram Hydrobromide( 20MG Oral 2 times daily ) Active -Hx Entry Oral 2 times daily for 0 *Pick strength-form from [employer] for eRX* Jun, Qjdxux30 hr isosorbide mononitrate 60 mg extended release oral tablet (19 sources)Nitrate VasodilatorStart: 08-23-2024 End: 20-97-2480ebgu 1 tablet by mouth once daily in the morningIsosorbide Mononitrate 60 mg tablet extended release 24 hr Discontinued 1 TAB PO Daily August 23, 2024 12:00am August 23, 2024 11:20am FreeTextSi tablet in the morning Orally Once a day; Note: Source Status: Xebaec443 mg; Provider: Robel Stewart ( )Start: 12-01-2023 End: 14-66-6178wirk 1 tablet by mouth in the morning, then take 1 tablet by mouth every twenty-four hoursisosorbide mononitrate ER (Imdur) 120 MG 24 hr tablet Take 120 mg by mouth in the morning. 12/01/2023 ActiveStart: 06-26-2022 Imdur 120MG Imdur( 120MG Oral ) Active -Hx Entry Oral for 0 *Reorder from [facility] for eRx and Interaction Alerts* Jun, Activetake 1 tablet by mouth once daily in the morningImdur 60 MG 1 tablet in the morning Orally Once a day 120 mg Active Problems Active Problems Problem ClassificationProblemDateDocumented DateEpisodic/ChronicAnxiety disorders (6 sources)Generalized anxiety disorder; Translations: [Generalized anxiety disorder]ChronicConduction disorders (5 sources)Pre-excitation syndrome; 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]Onset: 93-07-3544MqczzpgCrysguvyv of lipid metabolism (9 sources)Hyperlipidemia, unspecified; Translations: [Hyperlipidemia]Onset: 35-74-9693NhhcrmtClekd of unknown origin (5 sources)Fever, unspecified; Translations: [Fever]EpisodicHeadache; including migraine (6 sources)Tension-type headache; Translations: [Tension-type headache, unspecified, not intractable]Onset: 500252-37-8892HpgbcqzPjhoknyzl disorders (10 sources)Excessive and frequent menstruation with regular cycle; Translations: [Intermenstrual bleeding - irregular] Resolved: 96-58-9018IvzcefaGamdxmnohejsx mental health disorders (6 sources)Primary insomnia; Translations: [Primary insomnia]Onset: 02-28-2024 42-80-8484QqkhvoaEhll disorders (6 sources)Moderate recurrent major depression; Translations: [...] (4 sources)Cerebrovascular disease; Translations: [Cerebrovascular disease, unspecified]Onset: 201418-76-6654TyvhaiqQllpu connective tissue disease (1 source)Pain in right hand; Translations: [Pain in right hand]EpisodicOther connective tissue disease (4 sources)Pain in right hand; Translations: [Pain in right hand]EpisodicOther eye disorders (5 sources)Dilated pupil; 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]ChronicOther eye disorders (6 sources)Anisocoria; 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]Onset: 522734-55-9069 ChronicOther non-traumatic joint disorders (1 source)Pain in left hip; Translations: [Pain in left hip]EpisodicOther non- traumatic joint disorders (4 sources)Arthralgia of the pelvic region and thigh; Translations: [Pain in left hip]EpisodicOther non-traumatic joint disorders (2 sources)Hip pain; Translations: [Pain in right hip]52-87-3321KhhyzajqNvxfi non-traumatic joint disorders (1 source)Pain in right hip; Translations: [Pain in joint, pelvic region and thigh]34-93-4955CouolscwCuybh nutritional; endocrine; and metabolic disorders (1 source)Body mass index (BMI) 36.0-36.9, adult; Translations: [Body mass index (BMI) 36.0-36.9, adult]ChronicOther nutritional; endocrine; and metabolic disorders (5 sources)Obese class I; Translations: [Body mass index 32.0-32.9, adult]Onset: 88-73-3817SktdonyNsohk nutritional; endocrine; and metabolic disorders (4 sources)Obese class II; Translations: [Body mass index (BMI) 36.0-36.9, adult]ChronicOther screening for suspected conditions (not mental disorders or infectious disease) (10 sources)Abnormal findings on diagnostic imaging of other specified body structures; Translations: [MRI scanabnormal]Onset: 79-00-6438ZxfqgmsDtwek screening for suspected conditions (not mental disorders or infectious disease) (20 sources)Encounter for screening mammogram for malignant neoplasm of breast; Translations: [Urine test negative]Onset: 86-46-8338ZzsujvqjJlffl skin disorders (5 sources)Acne vulgaris; Translations: [Acne [...] pain; Translations: [Pelvic and perineal pain] Resolved: 42-53-5722LkpxiecjWdpnvsrw reactions (5 sources)Unspecified contact dermatitis due to other agents; Translations: [Contact dermatitis]Onset: 93-92-1844EknpuhgqUwcozwavep associated with dizziness or vertigo (6 sources)Vertigo; Translations: [Dizziness and giddiness]Onset: 02-28-2024 32-60-4217DivjxucmLjpsoyin; including migraine (4 sources)Tension-type headache; Translations: [Tension-type headache, unspecified, intractable]Onset: 515689-86-5433XtyusubxPrdqkhk and fatigue (1 source)Other fatigue; Translations: [OTHER FATIGUE]Onset: 81-40-0463Oemyhisa Mycoses (5 sources)Candidiasis, unspecified; Translations: [Candidiasis]Onset: 33-78-8210XhwvxutdPlcjemcxupd chest pain (18 sources)Non-cardiac chest pain; Translations: [Other chest pain]Onset: 12-08-4305HqirznicOsudy circulatory disease (4 sources)Other specified symptoms and signs involving the circulatory and respiratory systems; Translations:[OTH SPEC SX SIGNS INVLV CIRC RS]Onset: 08-24-3247NszzztyyQwdtn complications of (1 source)Supervision of high risk , unspecified, unspecified trimester; Translations: [Supervision of high risk , unspecified, unspecified trimester]Onset: 88-19-3275EtlqythuXprmh complications of (4 sources)High risk ; Translations: [Supervision of high risk , unspecified, unspecified trimester]Onset: 24-26-6607PovfflvvLujbo eye disorders (4 sources)Fundoscopy abnormal; Translations: [Unspecified disorder of eye and adnexa]Onset: 346206-08-3979HrzcniuxSvzit liver diseases (4 sources)Elevated levels of transaminase & lactic acid dehydrogenase; Translations: [Nonspecific elevation of levels of transaminase or lactic acid dehydrogenase (LDH)]Onset: 47-24-1004NagzsdhvTckxt lower respiratory disease (2 sources)Shortness of breath; Translations: [Shortness of breath]Onset: 01-97-2378KflyywugHeath nervous system disorders (6 sources)Tremor; Translations: [Tremor, unspecified]Onset: 02-28-2024 21-61-8777UygcbrbyBlaod non-traumatic joint disorders (5 sources)Shoulder joint pain; Translations: [Pain in right shoulder]Onset: 68-93-0868MmwjzxqoYzqxc and delivery including normal (1 source)Encounter for routine follow-up; Translations: [Encounter for routine follow-up]Onset: 18-72-6161JmrwfuwbImxmcebmv; thrombophlebitis and thromboembolism (5 sources)Embolism from thrombosis of vein of distal lower extremity; Translations: [Acute venous embolism and thrombosis of unspecified deep vessels of lower extremity]Onset: 97-48-2238VvdsjvqxKicwmdhpizk; intervertebral disc disorders; other back problems (5 sources)Cervical disc disorder with radiculopathy; Translations: [Cervical disc disorder with radiculopathy, cervicothoracic region]Onset: 06-20-2018 EpisodicThyroid disorders (5 sources)Disorder of thyroid, unspecified; Translations: [Disorder of thyroid gland]Onset: 25-96-1621YifvfmcxWwaussfmshqt (5 sources)Surveillance of intrauterine device contraception done; Translations: [Surveillance of previously prescribed intrauterine contraceptive device]Onset: 10-40-7738Aaxifgauuvho (5 sources)Encounter for insertion or removal of intrauterine contraceptive device; Translations: [Encounter for insertion or removal of intrauterine contraceptive device]Onset: 09-05-2009 Results Test NameValueInterpretationReference WeweeXzwudayv33rj 60-84-486754Qcnieii had labs drawn 08/22 for routine wellness. Her K was very low so she was advised to go to the ED. She said the ED doc gave her 4 days worth of potassium chloride. It was checked again today and results are scanned into online media buyer for your review. Did you want to give her more potassium? It's still low. Please advise. Thanks.[facility]36on Regarding stress test result from 05/28/2025: Vidhi Anderson MD to Me (Selected Message) EE 06/05/25 7:55 AM Please reassure her stress test is normal Thanks Patient made aware.[facility] SystemOrders Onlyon 31-56-5621Dyhbcz [id number] Elvia Fxo Alexy 1975 F Date Provider Department Center 06/04/2025 [id number], HISTORICAL BEATA [facility] Family History Problem Relation Age of Onset Supraventricular tachycardia Mother Heart disease Father Supraventricular tachycardia Sister Heart disease Paternal Grandmother Heart disease Paternal Grandfather Family Status - Relation Status Age at Mother Father Sister Paternal Grandmother Paternal GrandfatherNTrinity Health System East CampusOffice Visiton 80-38-2467Egtbex-up [id number] Leslie Foxecca Alexy 1975 F Date Provider Department Center 05/03/2025 271-VIDHI ANDERSON Family History Problem Relation Age of Onset Supraventricular tachycardia Mother Heart disease Father Supraventricular tachycardia Sister Heart disease Paternal Grandmother Heart disease Paternal Grandfather Family Status - Relation Status Age at Mother Father Sister Paternal Grandmother Paternal Grandfather Level of Service:93444 MO OFFICE/OUTPATIENT ESTABLISHED MOD MDM 30 [facility]MRI HEAD/BRAIN WO/W CONTRon 07-23-9361[address] [address] Magnetic Resonance Report Signed Patient: ELVIA FOX MR#: [id number] : 1975 Acct:[id number] Age/Sex: 48 / F ADM Date: 03/16/24 Loc: MRI Attending Dr: Harlan Niño NP Ordering Physician: Harlan Niño NP Date of Service: 03/16/24 Procedure(s): MR head/brain wo/w con Accession Number(s): [id number] cc: Pat Huston M.D.; Harlan Niño NP [place] [address] Patient Name: ELVIA FOX MRN: [facility]:[id number] date: 1975 Sex: F Assigned Patient Location: MRI Current Patient Location: MRI Accession/Order Number: [id number] Exam Date: 03/16/2024 16:00 Report Date: 03/16/2024 [...] M.D. Signed By: 03/16/241705 DD/ 03 TD/TT: Racking Technician:TBHRadiology, Radiologist, - 03/16/2024 [place] [address] Magnetic Resonance Report Signed Patient: ELVIA FOX MR#: [id number] : 1975 Acct:[id number] Age/Sex: 48 / F ADM Date: 03/16/24 Loc: MRI Attending Dr: Harlan Niño NP Ordering Physician: Harlan Niño NP Date of Service: 03/16/24 Procedure(s): MR head/brain wo/w con Accession Number(s): [id number] cc: Pat Huston M.D.; Harlan Niño NP [address] [place] [address] Patient Name: ELVIA FOX MRN: [facility]:[id number] date: 1975 Sex: F Assigned Patient Location: MRI Current Patient Location: MRI Accession/Order Number: [id number] Exam Date: 03/16/2024 16:00 Report Date: 03/16/2024 [...] M.D. Signed By: 03/16/241705 DD/ 03 TD/TT: Racking Technician: [facility] CenterRadiology Study observation (narrative)[facility] HospitalI [facility]/BRAIN WO/W CONTROrdered By: Radiologist Radiology on 90-56-7081TYJY Angelantoni Work Phone: MR breast BI wo/w con CADon 64-00-9494LE breast BI wo/w con [facility] [place] [address] MRI Report Signed Patient: Elvia Fox MR#: [id number] : 1975 Acct:[id number] Age/Sex: 48 / F ADM Date: 09/07/23 Loc: Room: Type: [facility] Attending Dr: Pat Huston MD [...] All imaged data was reviewed using the [employer] system. The postcontrast images were subtracted and [...] Waite Jr., D.OLinda09/07/2023 11:47 AM Dictation Location: [place] [address] Transcribed By: [facility] 09/07/23 1147 Dictated By: Bunny Waite Jr, DO 09/07/23 1138 Signed By: 09/07/23 1147[facility] HospitalMRI BRAIN WO W CONon 02-64-0422HGE BRAIN WO W CONEXAMINATION: MRI BRAIN WO [...] Electronically authenticated by: EDILSON JOHN Date: 2023-02-16 10:16[facility] Crille HospitalLIPID PROFILEon 63-89-8155FYKI-HDL RATIO NORMSEE Corey HospitalComment on above:Result Comment: 3.3 - 4.4 LOW RISK 4.4 - 7.1 AVERAGE RISK 7.1 - 11.0 MODERATE RISK >11.0 HIGH RISKPerformed By: #### CMP, TSH, LIPID #### [facility] [address] [place] [address] [address] David ZapataCholesterol [Mass/Vol]120 mg/dLNormal<=200[facility] Comment on above:Performed By: #### CMP, TSH, LIPID #### [facility] [address] [place] [address] Dr. David ZapataCholesterol in HDL [Mass/Vol]54 mg/cAIifxfk01-25JoxSelect Medical Specialty Hospital - Cleveland-FairhillComment on above:Performed By: #### CMP, TSH, LIPID #### [facility] [address] [place] [address] Dr. David ZapataCholesterol in LDL [Mass/Vol]45.6 mg/dLBrecksville VA / Crille HospitalComment on above:Performed By: #### CMP, TSH, LIPID #### [facility] [address] [place] [address] Dr. David Suarezestermaciej.total/Cholesterol in HDL [Mass ratio]2.2 {ratio} NormalSelect Medical Specialty Hospital - Cleveland-FairhillComment on above:Performed By: #### CMP, TSH, LIPID #### [facility] [address] [place] [address] Dr. David ZapataHDL NORMAL> or = 60 mg/dl - LOW CARDIOVASCULAR RISK <40 mg/dl - HIGH CARDIOVASCULAR RISKBrecksville VA / Crille HospitalComment on above:Performed By: #### CMP, TSH, LIPID #### [facility] [address] [place] [address] Dr. David ZapataLDL CALC NORMALSEE Corey HospitalComment on above:Result Comment: <100 mg/dl OPTIMAL 100 - 129 mg/dl NEAR OR ABOVE OPTIMAL 130 - 159 mg/dl BORDERLINE HIGH 160 - 189 mg/dl HIGH >190 mg/dl VERY HIGH Performed By: #### CMP, TSH, LIPID #### [facility] [address] [place] [address] Dr. David ZapataTriglyceride [Mass/Vol]102 mg/dLNormal<=150[facility] Comment on above:Performed By: #### CMP, TSH, LIPID #### [facility] [address] [place] [address] Dr. David ZapataVLDL CALC20.4 mg/dLNormalThe Madison HealthComment on above: Performed By: #### CMP, TSH, LIPID #### [facility] [address] [place] [address] Dr. David Cheatham PROFILEon 65-40-7352Uufmoek [Mass/Vol]3.4 g/dLNormal3.4-5.0 The Madison HealthComment on above:Performed By: #### CMP, TSH, LIPID #### [facility] [address] [place] [address] Dr. David ZapataAlbumin/Globulin [Mass ratio]1.0 {ratio}NormalThe Madison HealthComment on above:Performed By: #### CMP, TSH, LIPID #### [facility] [address] [place] [address] Dr. David Crockett [Catalytic activity/Vol]51 U/GByithi49-958Zds Madison HealthComment on above:Performed By: #### CMP, TSH, LIPID #### [facility] [address] [place] [address] Dr. David Szymanski [Catalytic activity/Vol]32 U/LPkftsi89-47Ihx [facility] on above:Performed By: #### CMP, TSH, LIPID #### [facility] [address] [place] [address] Dr. David Gamino [Catalytic activity/Vol]18 U/DKahtqd66-81Eiu Madison HealthComment on above:Performed By: #### CMP, TSH, LIPID #### [facility] [address] [place], [place] [address] Dr. David Xie, CONJUGATED0.1 mg/dLNormal0.0-0.2[facility] Comment on above:Performed By: #### CMP, TSH, LIPID #### [facility] [address] [place] [address] Dr. David Mcknightirubin [Mass/Vol]0.4 mg/dLNormal0.2-1.0[facility] Comment on above:Performed By: #### CMP, TSH, LIPID #### [facility] [address] [place] [address] Dr. David ZapataGlobulin (S) [Mass/Vol]3.5 g/dLNormalThe Madison HealthComment on above:Performed By: #### CMP, TSH, LIPID #### [facility] [address] [place] [address] Dr. David ZapataProtein [Mass/Vol]6.9 g/dLNormal6.4-8.2[facility] Comment on above:Performed By: #### CMP, TSH, LIPID #### [facility] [address] [place] [address] Dr. David Kellogg AUTO DIFFon [id number] #0.0 103/ulNormal0.0-0.1[facility]-FairhillComment on above:Performed By: #### CBC #### [facility] [address] [place] [address] Dr. David ZapataBasophils/100 WBC (Bld)0.4 %Normal0.2-2.0[facility] Comment on above:Performed By: #### CBC #### [facility] [address] [place] [address] Dr. David Henry #0.3 103/ulNormal0.0-0.7The [facility] HealthComment on above: Performed By: #### CBC #### [facility] [address] [place] [address] Dr. David Chavisosinophils/100 WBC (Bld)3.4 %Normal0.9-7.0[facility] Comment on above:Performed By: #### CBC #### [facility] [address] [place] [address] Dr. David Chavisrythrocyte distribution width (RBC) [Ratio]12.0 %Qanotn65.0-15.0 The [facility] HealthComment on above:Performed By: #### CBC #### [facility] [address] [place] [address] Dr. David ZapataHematocrit (Bld) [Volume fraction]44.2 %Holovq29.0-48.0The [facility] HealthComment on above:Performed By: #### CBC #### [facility] [address] [place] [address] Dr. David ZapataHemoglobin (Bld) [Mass/Vol]14.0 g/qZUrjzac88.0-16.0[facility]hillComment on above:Performed By: #### CBC #### [facility] [address] [place] [address] Dr. David Rubio #0.04 10e3/ulCritically high0.00-0.03[facility] Comment on above:Performed By: #### CBC #### [facility] [address] [place] [address] Dr. David Rubio %0.5 %Normal0.0-0.5The [facility] HealthComment on above: Performed By: #### CBC #### [facility] [address] [place] [address] Dr. David Barnhart #2.3 103/ulNormal1.2-3.8The [facility] HealthComment on above:Performed By: #### CBC #### [facility] [address] [place] [address] Dr. David Guevarahocytes/100 WBC (Bld)28.7 %Gzpyxn14.5-60.0The [facility] HealthComment on above:Performed By: #### CBC #### [facility] [address] [place] [address] Dr. David HanksUAL DIFF REQNONormalThe [facility] HealthComment on above: Performed By: #### CBC #### [facility] [address] [place] [address] Dr. David León (RBC) [Entitic mass]29.2 xoOroepc68.7-34.0The [facility] HealthComment on above:Performed By: #### CBC #### [facility] [address] [place] [address] Dr. David León (RBC) [Mass/Vol]31.7 g/pQOpuqfc37.9-35.2The [facility] HospitalComment on above:Performed By: #### CBC #### [facility] [address] [place] [address] Dr. David León (RBC) [Entitic vol]92.1 kZUtcxsh77.0-99.0The [facility] HealthComment on above:Performed By: #### CBC #### [facility] [address] [place] [address] Dr. David Arellano #0.6 103/ulNormal0.3-0.8The [facility] HealthComment on above:Performed By: #### CBC #### [facility] [address] [place] [address] Dr. David Sureshocytes/100 WBC (Bld)7.3 %Normal1.7-12.0[facility] Comment on above:Performed By: #### CBC #### [facility] [address] [place] [address] Dr. David Noble #4.8 103/ulNormal1.4-6.5The [facility] HealthComment on above:Performed By: #### CBC #### [facility] [address] [place] [address] Dr. David Cavazosutrophils/100 WBC (Bld)59.7 %Zicxdx57.0-75.0The [facility] HealthComment on above:Performed By: #### CBC #### [facility] [address] [place] [address] Dr. David Maldonadolet mean volume (Bld) [Entitic vol]9.4 fLCritically low 9.5-13.5[facility] on above:Performed By: #### CBC #### [facility] [address] [place] [address] Dr. David ArayaT308 103/ycBqesbt292-701[facility] on above: Performed By: #### CBC #### [facility] [address] [place] [address] Dr. David ZapataRBC4.80 106/ulNormal4.20-5.40[facility] on above:Performed By: #### CBC #### [facility] [address] [place] [address] Dr. David ZapataWBC8.0 103/ulNormal4.0-11.0[facility] on above: Performed By: #### CBC #### [facility] [address] [place] [address] Dr. David ArroyoID PROFILEon 92-40-1989BLDJ-HDL RATIO NORMSEE [facility]Comm[facility] on above:Result Comment: 3.3 - 4.4 LOW RISK 4.4 - 7.1 AVERAGE RISK 7.1 - 11.0 MODERATE RISK >11.0 HIGH RISKPerformed By: #### CMP, TSH, LIPID #### [facility] [address] [place] [address] Dr. David ZapataCholesterol [Mass/Vol]203 mg/dLCritically high<=200[facility] on above:Performed By: #### CMP, TSH, LIPID #### [facility] [address] [place] [address] Dr. David ZapataCholesterol in HDL [Mass/Vol]57 mg/sLAgrxwf47-43Kjd [facility] on above:Performed By: #### CMP, TSH, LIPID #### [facility] [address] [place] [address] Dr. David Suarezesterol in LDL [Mass/Vol]120.4 mg/dLNormalThe [facility] Beach HospitalComment on above:Performed By: #### CMP, TSH, LIPID #### [facility] [address] [address] [address] David ZapataCholesterol.total/Cholesterol in HDL [Mass ratio]3.6 {ratio} NormalThe [facility] HealthComment on above:Performed By: #### CMP, TSH, LIPID #### [facility] [address] [address] [address] David Garcia NORMAL> or = 60 mg/dl - LOW CARDIOVASCULAR RISK <40 mg/dl - HIGH CARDIOVASCULAR RISKBrecksville VA / Crille HospitalComment on above:Performed By: #### CMP, TSH, LIPID #### [facility] [address] [address] [address] David ZapataLDL CALC NORMALSEE BELOWBrecksville VA / Crille HospitalComment on above:Result Comment: <100 mg/dl OPTIMAL 100 - 129 mg/dl NEAR OR ABOVE OPTIMAL 130 - 159 mg/dl BORDERLINE HIGH 160 - 189 mg/dl HIGH >190 mg/dl VERY HIGH Performed By: #### CMP, TSH, LIPID #### [facility] [address] [address] [address] David ZapataTriglyceride [Mass/Vol]128 mg/dLNormal<=150[facility] Comment on above:Performed By: #### CMP, TSH, LIPID #### [facility] [address] [address] [address] David ZapataVLDL CALC25.6 mg/dLNoWVUMedicine Barnesville HospitalComment on above: Performed By: #### CMP, TSH, LIPID #### [facility] [address] [address] [address] David ZapataPROKareem 14(COMP METB)on 57-42-1900Xkwknds [Mass/Vol]3.5 g/dLNormal 3.4-5.0The [facility] HealthComment on above:Performed By: #### CMP, TSH, LIPID #### [facility] [address] [address] [address] David ZapaatAlbumin/Globulin [Mass ratio]1.0 {ratio}NormalThe Lloyd HospitalComment on above:Performed By: #### CMP, TSH, LIPID #### [facility] [address] [place] [address] Dr. David Crockett [Catalytic activity/Vol]68 U/AVzbyri05-045Tpu [facility] HealthComment on above:Performed By: #### CMP, TSH, LIPID #### [facility] [address] [place] [address] Dr. David Szymanski [Catalytic activity/Vol]28 U/XRaovpz06-75Tiv [facility] HealthComment on above:Performed By: #### CMP, TSH, LIPID #### [facility] [address] [place] [address] Dr. David Nguyen gap [Moles/Vol]11.3 mmol/LNormalThe [facility] Comment on above:Performed By: #### CMP, TSH, LIPID #### [facility] [address] [place] [address] Dr. David Gamino [Catalytic activity/Vol]18 U/UUfbplt79-11Ysp [facility] HealthComment on above:Performed By: #### CMP, TSH, LIPID #### [facility] [address] [place] [address] Dr. David ZapataBilirubin [Mass/Vol]0.4 mg/dLNormal0.2-1.0[facility] Comment on above:Performed By: #### CMP, TSH, LIPID #### [facility] [address] [place] [address] Dr. David ZapataCalcium [Mass/Vol]8.8 mg/dLNormal8.5-10.1[facility] Comment on above:Performed By: #### CMP, TSH, LIPID #### [facility] [address] [place] [address] Dr. David Vuongide [Moles/Vol]103 mmol/PZhutex91-329Vww [facility] Comment on above:Performed By: #### CMP, TSH, LIPID #### [facility] [address] [place] [address] Dr. David ZapataCO2 [Moles/Vol]28.4 mmol/OGekmcq15.0-32.0[facility] Comment on above:Performed By: #### CMP, TSH, LIPID #### [facility] [address] [address] [address] David ZapataCreatinine [Mass/Vol]0.96 mg/dLNormal0.55-1.02The [facility] HealthComment on above:Performed By: #### CMP, TSH, LIPID #### [facility] [address] [place] [address] Dr. David ChavisGFR-AF GRENADIAN>60Normal>=60The [facility] HealthComment on above:Performed By: #### CMP, TSH, LIPID #### [facility] [address] [place] [address] Dr. David Mccallum-NON AF GRENADIAN>60Normal>=60The [facility] HealthComment on above:Performed By: #### CMP, TSH, LIPID #### [facility] [address] [place] [address] Dr. David ZapataGlobulin (S) [Mass/Vol]3.5 g/dLNormalThe [facility] HealthComment on above:Performed By: #### CMP, TSH, LIPID #### [facility] [address] [place] [address] Dr. David ZapataGlucose [Mass/Vol]94 mg/sWMhwhfs00-937LaxSelect Medical Specialty [facility] Comment on above:Performed By: #### CMP, TSH, LIPID #### [facility] [address] [place] [address] Dr. David aZpataPotassium [Moles/Vol]3.7 mmol/LNormal3.5-5.1[facility] Comment on above:Performed By: #### CMP, TSH, LIPID #### [facility] [address] [place] [address] Dr. David ZapataProtein [Mass/Vol]7.0 g/dLNormal6.4-8.2[facility] Comment on above:Performed By: #### CMP, TSH, LIPID #### [facility] [address] [address] [address] David ZapataSodium [Moles/Vol]139 mmol/KUhcsyl665-081Wdn [facility] Comment on above:Performed By: #### CMP, TSH, LIPID #### [facility] [address] [address] [address] David ZapataUrea nitrogen [Mass/Vol]8.0 mg/dLNormal7.0-18.0The [facility] HealthComment on above:Performed By: #### CMP, TSH, LIPID #### [facility] [address] [address] [address] David ZapataUrea nitrogen/Creatinine [Mass ratio]8.3 mg/mgNormalThe [facility] HealthComment on above:Performed By: #### CMP, TSH, LIPID #### [facility] [address] [place] [address] Dr. David ZapataTSHon 79-49-6039GSZ3.557 uIU/mLNormal0.358-3.740The [facility] HealthComment on above:Performed By: #### CMP, TSH, LIPID #### [facility] [address] [address] [address] David ZapataVITAMIN B12on 42-93-8491Hzdsqalmg (Vitamin B12) [Mass/Vol]247.0 pg/pUCxxzty092.0-986.0The [facility] HealthComment on above:Performed By: #### VITB12 #### [facility] [address] [place] [address] Dr. David ZapataNM STRESS/REST MULTIon 91-74-0746LG STRESS/REST MULTIPatient: ELVIA FOX Exam Date: 11/04/2022 : 1975 Gender:F Ordering : DR VIDHI ANDERSON M.D. Admission #: [id number] Family : Order #: [id number] CLICK HERE TO VIEW EXAM RADIOLOGY REPORT [...] by: Edilson John M.D. on 11/05/2022 at 11:01[facility] MAMM SCREEN 3D AMANUEL CADon 75-93-4502LJ MAMM SCREEN 3D AMANUEL CADPatient: ELVIA FOX Exam Date: 07/10/2022 : 1975 Gender:F Ordering : DR PAT HUSTON M.D. Admission #: [id number] Family : Order #: [id number] CLICK HERE TO VIEW EXAM RADIOLOGY REPORT [...] Treatments None Family Cancers None LOCATION: [facility] BREAST COMPOSITION: Heterogeneously dense,which may obscure small [...] by: Nilesh Deutsch MD on 07/10/2022 at 08:04[facility]ThCorey [facility] AUTO DIFFon 76-43-2574VCYI #0.0 103/ulNormal0.0-0.1[facility]hillComment on above:Performed By: #### CBC #### [facility] [address] [place] [address] Dr. David ZapataBasophils/100 WBC (Bld)0.5 %Normal0.2-2.0[facility] Comment on above:Performed By: #### CBC #### [facility] [address] [place] [address] Dr. David Henry #0.3 103/ulNormal0.0-0.7The [facility] HealthComment on above: Performed By: #### CBC #### [facility] [address] [place] [address] Dr. David Chavisosinophils/100 WBC (Bld)3.4 %Normal0.9-7.0[facility] Comment on above:Performed By: #### CBC #### [facility] [address] [place] [address] Dr. David Chavisrythrocyte distribution width (RBC) [Ratio]12.1 %Wthwqd68.0-15.0 [facility]hillComment on above:Performed By: #### CBC #### [facility] [address] [place] [address] Dr. David ZapataHematocrit (Bld) [Volume fraction]40.6 %Lmqagw41.0-48.0[facility]hillComment on above:Performed By: #### CBC #### [facility] [address] [place] [address] Dr. David ZapataHemoglobin (Bld) [Mass/Vol]13.5 g/fHJgplge33.0-16.0[facility] on above:Performed By: #### CBC #### [facility] [address] [place] [address] Dr. David Rubio #0.03 10e3/ulNormal0.00-0.03The [facility] HealthComment on above:Performed By: #### CBC #### [facility] [address] [place] [address] Dr. David Rubio %0.4 %Normal0.0-0.5The [facility] HealthCommclaren [facility] on above: Performed By: #### CBC #### [facility] [address] [place] [address] Dr. David Barnhart #2.1 103/ulNormal1.2-3.8The [facility] HealthComment on above:Performed By: #### CBC #### [facility] [address] [place] [address] Dr. David Guevarahocytes/100 WBC (Bld)28.6 %Vslqga35.5-60.0[facility] on above:Performed By: #### CBC #### [facility] [address] [place] [address] Dr. David HanksUAL DIFF REQNONormalThe [facility] HealthComment on above: Performed By: #### CBC #### [facility] [address] [place] [address] Dr. David León (RBC) [Entitic mass]29.2 wvSvigti56.7-34.0The [facility] HealthComment on above:Performed By: #### CBC #### [facility] [address] [place] [address] Dr. David León (RBC) [Mass/Vol]33.3 g/xGIeqgjp16.9-35.2The [facility] HealthComment on above:Performed By: #### CBC #### [facility] [address] [address] [address] David LeónV (RBC) [Entitic vol]87.9 zNYsvydj16.0-99.0The [facility] Hospitalment on above:Performed By: #### CBC #### [facility] [address] [place] [address] Dr. David Arellano #0.6 103/ulNormal0.3-0.8The [facility] HealthComment on above:Performed By: #### CBC #### [facility] [address] [place] [address] Dr. David Sureshocytes/100 WBC (Bld)7.9 %Normal1.7-12.0[facility] Comment on above:Performed By: #### CBC #### [facility] [address] [place] [address] Dr. David Noble #4.3 103/ulNormal1.4-6.5The [facility]ment on above:Performed By: #### CBC #### [facility] [address] [place] [address] Dr. David Cavazosutrophils/100 WBC (Bld)59.2 %Wbsyzb51.0-75.0The [facility] HealthComment on above:Performed By: #### CBC #### [facility] [address] [place] [address] Dr. David Maldonadolet mean volume (Bld) [Entitic vol]9.2 fLCritically low 9.5-13.5The [facility] Hospitalment on above:Performed By: #### CBC #### [facility] [address] [place] [address] Dr. David ZapataPLT280 103/vyZhhoyy483-090Tlj [facility] HealthComment on above: Performed By: #### CBC #### [facility] [address] [place] [address] Dr. David ZapataRBC4.62 106/ulNormal4.20-5.40The [facility]ment on above:Performed By: #### CBC #### [facility] [address] [address] [address] David ZapataWBC7.3 103/ulNormal4.0-11.0[facility] on above: Performed By: #### CBC #### [facility] [address] [address] [address] David ZapataGLYCOHEMOGLOBIN A1Con 49-35-5089ABS RECOMMENDATIONSEE BELOWCleveland ClinicCommclaren port [facility] hospital on above:Result Comment: ADA RECOMMENDED LIMIT 4.0 - 6.0 ADA THERAPEUTIC TARGET < 7.0 ACTION SUGGESTED > 7.0Performed By: #### CMP, TSH, LIPID #### [facility] [address] [place] [address] Dr. David ZapataGlucose [Mass/Vol]103 mg/dLNoTrumbull Regional Medical Center on above:Performed By: #### CMP, TSH, LIPID #### [facility] [address] [place] [address] Dr. David ZapataHbA1c (Bld) [Mass fraction]5.2 %Normal4.5-6.2[facility] on above:Performed By: #### CMP, TSH, LIPID #### [facility] [address] [place] [address] Dr. David ZapataLIPID PROFILEon 51-93-0037BEVR-HDL RATIO NORMSEE [facility] on above:Result Comment: 3.3 - 4.4 LOW RISK 4.4 - 7.1 AVERAGE RISK 7.1 - 11.0 MODERATE RISK >11.0 HIGH RISKPerformed By: #### CMP, TSH, LIPID #### [facility] [address] [address] [address] David ZapataCholesterol [Mass/Vol]217 mg/dLCritically high<=200[facility] on above:Performed By: #### CMP, TSH, LIPID #### [facility] [address] [place] [address] Dr. aDvid ZapataCholesterol in HDL [Mass/Vol]50 mg/hRFrebgl87-60Zig [facility] HealthComment on above:Performed By: #### CMP, TSH, LIPID #### [facility] [address] [address] [address] David Suarezesterol in LDL [Mass/Vol]137.6 mg/dLBrecksville VA / Crille HospitalCommclaren [facility] hospital on above:Performed By: #### CMP, TSH, LIPID #### [facility] [address] [address] [address] David Mayers.total/Cholesterol in HDL [Mass ratio]4.3 {ratio} NormalThe [facility] HealthComment on above:Performed By: #### CMP, TSH, LIPID #### [facility] [address] [place] [address] Dr. David Garcia NORMAL> or = 60 mg/dl - LOW CARDIOVASCULAR RISK <40 mg/dl - HIGH CARDIOVASCULAR RISKBrecksville VA / Crille HospitalComment on above:Performed By: #### CMP, TSH, LIPID #### [facility] [address] [address] [address] David Bardales CALC NORMALSEE BELOWBrecksville VA / Crille HospitalComment on above:Result Comment: <100 mg/dl OPTIMAL 100 - 129 mg/dl NEAR OR ABOVE OPTIMAL 130 - 159 mg/dl BORDERLINE HIGH 160 - 189 mg/dl HIGH >190 mg/dl VERY HIGH Performed By: #### CMP, TSH, LIPID #### [facility] [address] [address] [address] David ZapataTriglyceride [Mass/Vol]147 mg/dLNormal<=150[facility] Comment on above:Performed By: #### CMP, TSH, LIPID #### [facility] [address] [address] [address] David PantojaLDL CALC29.4 mg/dLNoWVUMedicine Barnesville HospitalComment on above: Performed By: #### CMP, TSH, LIPID #### [facility] [address] [place] [address] Dr. David ZapataPROF 14(COMP METB)on 00-31-9694Dwfteat [Mass/Vol]3.6 g/dLNormal 3.4-5.0The [facility] HealthComment on above:Performed By: #### CMP, TSH, LIPID #### [facility] [address] [address] [address] David ZapataAlbumin/Globulin [Mass ratio]1.1 {ratio}NormalThe [facility] HealthComment on above:Performed By: #### CMP, TSH, LIPID #### [facility] [address] [address] [address] David Crockett [Catalytic activity/Vol]62 U/OOzuqxf38-602Vdk [facility] HealthComment on above:Performed By: #### CMP, TSH, LIPID #### [facility] [address] [place] [address] Dr. David Szymanski [Catalytic activity/Vol]21 U/QWmvvql43-22Onx [facility] HealthComment on above:Performed By: #### CMP, TSH, LIPID #### [facility] [address] [place] [address] Dr. David Nguyen gap [Moles/Vol]12.6 mmol/LNormalThe [facility] Comment on above:Performed By: #### CMP, TSH, LIPID #### [facility] [address] [place] [address] Dr. David ZapataAST [Catalytic activity/Vol]14 U/LCritically tby27-30Opm [facility] HealthComment on above:Performed By: #### CMP, TSH, LIPID #### [facility] [address] [place] [address] Dr. David ZapataBilirubin [Mass/Vol]0.6 mg/dLNormal0.2-1.0[facility] Comment on above:Performed By: #### CMP, TSH, LIPID #### [facility] [address] [place] [address] Dr. David ZapataCalcium [Mass/Vol]8.5 mg/dLNormal8.5-10.1[facility] Comment on above:Performed By: #### CMP, TSH, LIPID #### [facility] [address] [place], [place] [id number] Dr. David ZapataChloride [Moles/Vol]103 mmol/MPunepm34-932Vje [facility] Comment on above:Performed By: #### CMP, TSH, LIPID #### [facility] [address] [place] [address] Dr. David ZapataCO2 [Moles/Vol]26.2 mmol/IAbrsvs77.0-32.0[facility] Comment on above:Performed By: #### CMP, TSH, LIPID #### [facility] [address] [place] [address] Dr. David ZapataCreatinine [Mass/Vol]0.94 mg/dLNormal0.55-1.02[facility]hillComment on above:Performed By: #### CMP, TSH, LIPID #### [facility] [address] [place] [address] Dr. Hernandez ChangEGFR-AF GRENADIAN>60Normal>=60The [facility] HealthComment on above:Performed By: #### CMP, TSH, LIPID #### [facility] [address] [place] [address] Dr. David ChavisGFR-NON AF GRENADIAN>60Normal>=60The [facility] HealthComment on above:Performed By: #### CMP, TSH, LIPID #### [facility] [address] [place] [address] Dr. David ZapataGlobulin (S) [Mass/Vol]3.3 g/dLNormalThe [facility] HealthComment on above:Performed By: #### CMP, TSH, LIPID #### [facility] [address] [place] [address] Dr. David ZapataGlucose [Mass/Vol]100 mg/kFMkikyj64-708Byd [facility] Comment on above:Performed By: #### CMP, TSH, LIPID #### [facility] [address] [place] [address] Dr. David ZapataPotassium [Moles/Vol]3.8 mmol/LNormal3.5-5.1[facility] Comment on above:Performed By: #### CMP, TSH, LIPID #### [facility] [address] [address] [address] David ZapataProtein [Mass/Vol]6.9 g/dLNormal6.4-8.2[facility] Comment on above:Performed By: #### CMP, TSH, LIPID #### [facility] [address] [address] [address] David ZapataSodium [Moles/Vol]138 mmol/CAjgwng086-444Zlj [facility] Comment on above:Performed By: #### CMP, TSH, LIPID #### [facility] [address] [address] [address] David ZapataUrea nitrogen [Mass/Vol]7.0 mg/dLNormal7.0-18.0The [facility] HealthComment on above:Performed By: #### CMP, TSH, LIPID #### [facility] [address] [place] [address] Dr. David Khan nitrogen/Creatinine [Mass ratio]7.4 mg/mgNormalThe [facility] HealthComment on above:Performed By: #### CMP, TSH, LIPID #### [facility] [address] [place] [address] Dr. David Tobias 04-93-9796HCI8.434 uIU/mLNormal0.358-3.740The [facility] HealthComment on above:Performed By: #### CMP, TSH, LIPID #### [facility] [address] [place] [address] Dr. David ZapataMRI BRAIN WO W CONon [id number] BRAIN WO W CONEXAMINATION: MRI BRAIN WO [...] Electronically authenticated by: EDILSON JOHN Date: 2022-06-10 06:40[facility] METABOLIC PANELon 46-70-9592Pgsjzcb [Mass/Vol]8.6 mg/dL Normal8.6-10.3The [facility] HospitalComment on above:Order Comment: No: Do not add to previous drawPerformed By: #### [id number], [id number] #### [facility] [address] [place] [address], USAChloride [Moles/Vol]106 mmol/EKorhai83-195Ryq [facility] HospitalComment on above:Order Comment: No: Do not add to previous drawPerformed By: #### [id number], [id number] #### [facility] [address] [place] [address], [place]2 [Moles/Vol]24 mmol/RNslvfr72-05Yli [facility] HospitalComment on above:Order Comment: No: Do not add to previous draw Performed By: #### [id number], [id number] #### [facility] [address] [place] [address], USACreatinine [Mass/Vol]0.90 mg/dLNormal0.60-1.20The [facility] HospitalComment on above:Order Comment: No: Do not add to previous drawPerformed By: #### [id number], [id number] #### [facility] [address] [place] [address], USAGFR/1.73 sq M predicted among blacks MDRD (S/P/Bld) [Vol rate/Area]mL/min/{1.73_m2}Normal>60The [facility] Comment on above:Order Comment: No: Do not add to previous drawPerformed By: #### 35678, 28483 #### [facility] [address] [place] [address], USAGFR/1.73 sq M predicted among non-blacks MDRD (S/P/Bld) [Vol rate/Area]mL/min/{1.73_m2}Normal>60[facility] [place] [facility] Comment on above:Order Comment: No: Do not add to previous drawPerformed By: #### 13827, 01995 #### [facility] [address] [place] [address], USAGlucose [Mass/Vol]97 mg/bIIvzkcg81-973Hey [place] [facility] HospitalComment on above:Order Comment: No: Do not add to previous drawPerformed By: #### 83913, 63597 #### [facility] [address] [place] [address], USAPotassium [Moles/Vol]3.9 mmol/LNormal3.5-5.1The [place] [facility] HospitalComment on above:Order Comment: No: Do not add to previous drawPerformed By: #### 90616, 19341 #### [facility] [address] [place] [address], USASodium [Moles/Vol]136 mmol/WSctfmd358-327Njx [facility] HospitalComment on above:Order Comment: No: Do not add to previous drawPerformed By: #### 25640, 68761 #### [facility] [address] [place] [address], USAUrea nitrogen [Mass/Vol]11 mg/dLNormal7-25The [place] [facility] HospitalComment on above:Order Comment: No: Do not add to previous drawPerformed By: #### 55182, 35133 #### [facility] [address] [place] [address], USACBC COMPLETE BLOOD COUNTon 17-17-0409Nvlykdokvua distribution width (RBC) [Ratio]12.0 %Hluoif05.5-15.0The [place] [facility] HospitalComment on above:Order Comment: No: Do not add to previous draw Performed By: #### 44139 #### [facility] [address] [place] [address], USAHematocrit (Bld) [Volume fraction]42.7 %Sjomsz79.0-45.0The [place] [facility] HospitalComment on above:Order Comment: No: Do not add to previous drawPerformed By: #### 91549 #### [facility] [address] [place] [address], USAHemoglobin (Bld) [Mass/Vol]13.9 g/tOPassbx25.0-15.0The [place] [facility] HospitalComment on above:Order Comment: No: Do not add to previous drawPerformed By: #### 02551 #### [facility] [address] [place] [address], [facility]IEWH (RBC) [Entitic mass]29.6 qeOzchho93.0-33.0The [place] [facility] HospitalComment on above:Order Comment: No: Do not add to previous drawPerformed By: #### 20506 #### [facility] [address] [place] [address], [facility]OSPITALMCHC (RBC) [Mass/Vol]32.6 g/nBBmjhcv30.0-35.0The [place] [facility] HospitalComment on above:Order Comment: No: Do not add to previous drawPerformed By: #### 73020 #### [facility] [address] [place] [address], [facility] HOSPITALMCV (RBC) [Entitic vol]91.0 wSUoxzts65.0-98.0The [place] [facility] HospitalComment on above:Order Comment: No: Do not add to previous drawPerformed By: #### 91869 #### [facility] [address] [place] [address], USANucleated RBC/100 WBC (Bld) [Ratio]0 %Normal0-0The [place] [facility] HospitalComment on above:Order Comment: No: Do not add to previous drawPerformed By: #### 68838 #### [facility] [address] [place] [address], USAPLAT ORQ893 10*3/tXRhlube952-450Oim [facility] HospitalComment on above:Order Comment: No: Do not add to previous draw Performed By: #### 03217 #### [facility] [address] [place] [address], USARBC (Bld) [#/Vol]4.69 10*6/uLNormal3.80-5.00The [place] [facility] HospitalComment on above:Order Comment: No: Do not add to previous drawPerformed By: #### 57092 #### [facility] [address] [place] [address], USAWBC (Bld) [#/Vol]8.19 10*3/uLNormal4.00-10.60The [place] [facility] HospitalComment on above:Order Comment: No: Do not add to previous drawPerformed By: #### 51327 #### [facility] [address] [place] [address], USACardiovascular Lab Reporton 41-20-4800Cndbvwqfzciapg Lab ReportUnSheltering Arms Hospital Patient Name: Elvia Fox [facility] Alexy MR #: [id number] Department of Physician: Mike Polanco M.D. Division of Service Date: 06/16/2019 Cardiology Birthdate: 1975 Adult Cardiovascular Room #: 3AB [id number] [place] [address] [address] [place], [place] [address] Cardiovascular Laboratory Report FINAL IMPRESSIONS: 1. Angiographically [...] the left radial artery was obtained. A 6-Fijian glide sheath was inserted without difficulty. Bilateral [...] Anderson M.D. Date Trans: 06/17/2019 04:09 Alexy/adela DN_JN:[id number] cc: Pat Huston M.D. [address] [place] [address] Amos Vazquez M.D. [address] [address]YvcusdKpkBlanchard Valley Health System Blanchard Valley HospitalHEMOGLOBIN A1Con 33-25-8492RvL2q (Bld) [Mass fraction]4.8 %Normal4.0-6.0The [place] [facility] HospitalComment on above:Order Comment: Yes: Add to Previous draw if ablePerformed By: #### 00421, 08455 #### [facility] [address] [place] [address], KGPCmR2g (Bld) [Mass fraction]91 mg/zRBtbwqo05-828Afu [facility] HospitalComment on above:Order Comment: Yes: Add to Previous draw if ablePerformed By: #### 71210, 32535 #### [facility] [address] [place] [address], USALIPID PROFILEon 76-53-1424Akiekroyleo [Mass/Vol]209 mg/dL Rajo698-597Ttn [facility] HospitalComment on above:Order Comment: Yes: Add to Previous draw if ableResult Comment: CHOLESTEROL REFERENCE RANGE: 20 YEARS AND OLDER CARDIOVASCULAR RISK Less than 200 mg/dl Low Risk 200 to 239 mg/dl Borderline Risk 240 mg/dl and greater High RiskPerformed By: #### 15332, 19766, 65683, 88898 #### [facility] [address] [place] [address], USACholesterol in HDL [Mass/Vol]35 mg/sJEtmutt89-37Xry [facility] HospitalComment on above:Order Comment: Yes: Add to Previous draw if ableResult Comment: Slight variation in normal range could be due to gender and/or age. HDL CHOLESTEROL REFERENCE RANGE: 20 years and older Cardiovascular Risk > or =60 mg/dL Desirable 40 TO 59 mg/dL Low Risk <40 mg/dL High RiskPerformed By: #### 28268, 70291, 67501, 13189 #### [facility] [address] [place] [address], USACholesterol in LDL [Mass/Vol]139 mg/dLHigh0-130The [place] [facility] HospitalComment on above:Order Comment: Yes: Add to Previous draw if ableResult Comment: LDL IS A CALCULATION LDL IS ONLY VALID IF THE TRIG IS LESS THAN 400.Performed By: #### 25395, 21471, 56694, 12485 #### [facility] [address] [place] [address], USACholesterol.total/Cholesterol in HDL [Mass ratio]6.0 {ratio}High0.0-4.5The [place] [facility] HospitalComment on above:Order Comment: Yes: Add to Previous draw if ablePerformed By: #### 60170, 32070, 48580, 44280 #### [facility] [address] [place] [address], USANON-HDL CICSBHDCAXE526 mg/dLNormalThe [place] [facility] HospitalComment on above:Order Comment: Yes: Add to Previous draw if able Performed By: #### 59037, 17415, 58790, 47714 #### [facility] [address] [place] [address], USATriglyceride [Mass/Vol]174 mg/tRMjuw53-962Bsr [facility] HospitalComment on above:Order Comment: Yes: Add to Previous draw if ableResult Comment: TRIGLYCERIDE REFERENCE RANGE: 20 YEARS AND OLDER CARDIOVASCULAR RISK LESS THAN 150 mg/dl LOW RISK 150 TO 199 mg/dl BORDERLINE RISK 200 mg/dl AND GREATER HIGH RISKPerformed By: #### 27028, 51930, 55828, 83431 #### [facility] [address] [facility] [place] [address], M[facility] HOSPITALVLDL CHOL35 mg/dLNormal0-40The [place] [facility] HospitalComment on above:Order Comment: Yes: Add to Previous draw if able Performed By: #### 70219, 52548, 20202, 38625 #### [facility] [address] [address], USAMAGNESIUM BLOODon 48-04-9591Zngzyarqt [Mass/Vol]2.2 mg/dL Normal1.9-2.7The [place] [facility] HospitalComment on above:Order Comment: No: Do not add to previous drawPerformed By: #### 52154, 98964, 13815, 73482 #### [facility] [address] [place] [address], USAPHOSPHORUS BLOODon 88-63-4903Hjitlaupm [Mass/Vol]4.3 mg/dL Normal2.5-5.0The [place] [facility] HospitalComment on above:Order Comment: No: Do not add to previous drawPerformed By: #### 60922, 80581 #### [facility] [address] [facility] [place] [address], USAAPTTon 57-05-5702iYFL Coag (Bld) [Time]27.3 sNormal 25.0-35.0The [place] [facility] HospitalComment on above:Result Comment: ALL RESULTS MUST [...] BE USED FOR THIS PURPOSE.Performed By: #### 93999, 70151 #### [facility] [address] [place] [address], USABASIC METABOLIC PANELon 64-06-6936Vmyzlyf [Mass/Vol]9.3 mg/dLNormal8.6-10.3The [place] [facility] HospitalComment on above:Order Comment: No: Do not add to previous drawPerformed By: #### 30298, 90603, 86492, 46710, 59427 #### [facility] [address] [place] [address], USAChloride [Moles/Vol]105 mmol/THkoyft36-884Hox [facility] HospitalComment on above:Order Comment: No: Do not add to previous drawPerformed By: #### 47493, 38728, 00344, 13215, 32718 #### [facility] [address] [place] [address], USACO2 [Moles/Vol]23 mmol/WVoxofo29-32Ack [facility] HospitalComment on above:Order Comment: No: Do not add to previous draw Performed By: #### 68985, 11832, 72760, 05156, 29475 #### [facility] [address] [place] [address], USACreatinine [Mass/Vol]0.85 mg/dLNormal0.60-1.20The [place] [facility] HospitalComment on above:Order Comment: No: Do not add to previous drawPerformed By: #### 80523, 03752, 63654, 63207, 70225 #### [facility] [address] [place] [address], USAGFR/1.73 sq M predicted among blacks MDRD (S/P/Bld) [Vol rate/Area]mL/min/{1.73_m2}Normal>60The [facility] Comment on above:Order Comment: No: Do not add to previous drawPerformed By: #### 93092, 14808, 56466, 02915, 70953 #### [facility] [address] [place] [address], USAGFR/1.73 sq M predicted among non-blacks MDRD (S/P/Bld) [Vol rate/Area]mL/min/{1.73_m2}Normal>60The [facility] Comment on above:Order Comment: No: Do not add to previous drawPerformed By: #### 61035, 16263, 89512, 46217, 83243 #### [facility] [address] [place] [address], USAGlucose [Mass/Vol]91 mg/qSDalraj96-590Bqq [facility] HospitalComment on above:Order Comment: No: Do not add to previous drawPerformed By: #### 11697, 31753, 75773, 57412, 58723 #### [facility] [address] [place] [address], USAPotassium [Moles/Vol]3.9 mmol/LNormal3.5-5.1The [place] [facility] HospitalComment on above:Order Comment: No: Do not add to previous drawPerformed By: #### 82105, 32864, 48968, 46877, 47651 #### [facility] [address] [place] [address], USASodium [Moles/Vol]136 mmol/RLkvmgs698-279Ady [facility] HospitalComment on above:Order Comment: No: Do not add to previous drawPerformed By: #### 29126, 31226, 77698, 36020, 80215 #### [facility] [address] [place] [address], USAUrea nitrogen [Mass/Vol]10 mg/dLNormal7-25The [place] [facility] HospitalComment on above:Order Comment: No: Do not add to previous drawPerformed By: #### 88568, 50646, 29530, 75566, 26863 #### [facility] [address] [place] [address], USAFREE T3on 24-57-3256Uknd T3 [Mass/Vol]2.6 pg/mLNormal 2.5-3.9The [place] [facility] HospitalComment on above:Performed By: #### 80694, 10867, 22459, 69624, 68730 #### [facility] [address] [place] [address], USAFREE T4on 27-75-2459Firq T4 [Mass/Vol]0.73 ng/dLNormal 0.71-1.85The [facility] HospitalComment on above:Performed By: #### 86224, 59430, 19787, 95583, 49582 #### [facility] [address] [place] [address], USAMAGNESIUM BLOODon 34-17-3626Cqaajkhna [Mass/Vol]2.2 mg/dL Normal1.9-2.7The [place] [facility] HospitalComment on above:Order Comment: No: Do not add to previous draw MissPerformed By: #### 28243, 57752, 65846, 09333, 16276 #### [facility] [address] [place] [address], USAPROTHROMBIN TIMEon 62-55-2154PBG Coag (PPP) [Relative time] 1.06 {INR}Normal0.91-1.16The [place] [facility] HospitalComment on above:Result Comment: ACCCP RECOMMENDED INR [...] OPTIMAL THERAPEUTIC RANGE. CHEST 1995;108:231S-246S.Performed By: #### 86597, 01849 #### [facility] [address] [address], USAPT Coag (PPP) [Time]13.8 pEfzazn05.3-14.8The [place] [facility] HospitalComment on above:Result Comment: ALL RESULTS MUST BE INTERPRETED WITH RESPECT TO BLOOD DRAWING ARTIFACT OR DILUTION ERROR OF ANTICOAGULANT AT THE TIME OF SAMPLING.Performed By: #### 54752, 88246 #### [facility] [address] [address], HKHBGM1ri 73-86-4098CRM 3RD GENERATION1.94 uIU/mLNormal 0.34-5.60The [place] [facility] HospitalComment on above:Performed By: #### 19606, 57626, 51555, 42053, 59814 #### [facility] [address] [address], [facility] Vital Signs Date TimeVital SignValuePerforming JoxvaeuytZelgcnpq67-69-1828 16:18-0400 Diastolic blood ukzruftv08 mm[Hg]Pat Huston MD Work Phone: [facility]07-31-2025 16:18-0400 Heart rate62 /Rubina Huston MD Work Phone: [facility]07-31-2025 16:18-0400 Systolic blood zpzlgikf001 mm[Hg]Pat Huston MD Work Phone: [facility]12-16-2024 11:00-0500 Body ecywuc995.1 cmAchemadottie Woodsvik [employer] GRAD[employer] SUPERVISOR Work Phone: [facility] CenterGbsnzcexzd82-81-3131 11:00-0500Body mass index (BMI) [Ratio]35.65 kg/r5Zezbuw Salinas [employer]PERVISOR Work Phone: [facility] CenterJnlwdezabe42-13-6811 11:00-0500Body sdmduy91.18 kgHarlan Salinas [employer] GRAD[employer] SUPERVISOR Work Phone: [facility] CenterOcqzckxspi42-18-7715 11:00-0500Diastolic blood tmsrkpyf80 mm[Hg]Harlan Salinas [employer] SUPERVISOR Work Phone: [facility] CenterAezofwmtej78-96-7700 11:00-0500Heart rate58 /min Harlan Niño [employer] SUPERVISOR Work Phone: [facility] CenterKwjjmfhwdb35-70-4677 11:00-9101AlO0% (BldA) [Mass fraction]98 %Harlan Salinas [employer] SUPERVISOR Work Phone: [facility] CenterMrafuwnbig54-09-4737 11:00-0500Systolic blood mm[Hg]Harlan Salinas [employer] SUPERVISOR Work Phone: [facility] CenterFplckjzbva79-86-4980 11:16-0400Body sigjqn970.1 cmWood [facility]10-30-2024 11:16-0400Body mass index (BMI) [Ratio]35.4 kg/s2AhkghhlvgWood County Hospital10-30-2024 11:16-0400Body fqycha65.61 kgWood County Hospital10-30-2024 11:16-0400Diastolic blood zdfivjet94 mm[Hg][facility]10-30-2024 11:16-0400 Heart rate65 /minWood County Hospital10-30-2024 11:16-0400Systolic blood modwnyei784 mm[Hg][facility]11-14-2023 10:29-0500 Body pclhox393.1 cmMD Pat Huston Work Phone: [facility]11-14-2023 10:29-0500 Body ppladt12.52 kgMD Pat Robel Work Phone: [facility] Encounters Encounter DateEncounter TypeCare ProviderFacilityStart: 05-24-2025 End: 71-39-1772estjcbapnvCkkdzl E [place] MD Work Phone: [facility] Work Phone: Start: 05-24-2025 End: 96-78-5019Fwxqarr encounter procedureHarlan Brandt [facility] [place] Work Phone: Start: 05-03-2025 End: 00-16-0716iivvktfssjZQRUUniversity Hospitals Cleveland Medical Centertart: 10-09-2024 End: 81-18-0434Wlflaq flowsheetHarlan Niño [employer]AD[employer] SUPERVISOR Work Phone: [facility]Start: 10-09-2024 End: 27-08-5257Hygqeg flowsheetHarlan Niño [employer]AD[employer] SUPERVISOR Work Phone: noMS [facility]TEStart: 10-09-2024 End: 94-90-6288Vemdyg outpatient visit 25 minutesAngejayne Niño [employer] SUPERVISOR Work Phone: noMS [facility] STATE R[facility]TEComment on above:Abnormal MRI (Primary Dx); Anisocoria; Tremor; Tension-type headache, not intractable, unspecified chronicity pattern; Vertigo; Primary insomniaStart: 10-09-2024 End: 52-71-4064kiylcpfmwuEJIWBT GILLMORNot AvailableStart: 83-14-6963Tlhrjsd encounter [facility] Centertart: 08-23-2024 End: 55-94-8439ybmbyvlyysPsmiqwwttKettering Health [facility] Work Phone: Start: 08-23-2024 End: 75-22-8497Cnhwxon encounter procedureKindred Hospital - [facility] Physician [facility] Work Phone: Start: 03-16-2024 End: 33-99-6170Lgvzxdifa Result EncounterAngela Peggymor [employer]PERVISOR Other Phone: NOQM External Department UnsolicitedStart: 03-16-2024 End: 52-54-6559Jfltfuckt Result EncounterAngela Peggymor [employer]PERVISOR Other Phone: noms External Department UnsolicitedStart: 02-28-2024 End: 64-61-0116zhsmiegwxjGOXXWL PEGGYMORNot AvailableStart: 84-94-7439Goppadtwv encounterMarcia RobelWVUMedicine Harrison Community Hospitaltart: 09-07-2023 End: 11-70-1986yagzpifqabAnileh E BraunFacility:[facility] Hospitaltart: 09-07-2023 End: 57-85-9379fmazsnwurxZK Marcia E [place] Work Phone: [facility] Work Phone: Start: 09-07-2023 End: 21-60-9828Wqsifgz encounter procedureMD Pat Huston Work Phone: [facility] Work Phone: Start: 08-06-2023 End: 35-26-2692gelfywcaglKfdzfr [place] Other [employer] Other Start: 12-05-6190Quyedbmqu encounterMarcia RobelCleveland Clinic [facility]inte [facility] ClinicStart: 07-27-2023 End: 69-92-2631ilzrhswxcnZrpzgb Braun Other [employer] Other Start: 88-15-8713Mfkzkbwui encounterMarcia RobelCleveland Clinic South [facility]inte Hospital ClinicStart: 07-13-2023 End: 84-88-7945bksmzwgxktMkloqk Braun Other [employer] Other Start: 08-85-1418Pyteonrrb encounterMarcia RobelCleveland Clinic South Pointe Hospital ClinicStart: 07-06-2023 End: 59-80-8938jizfbkrotkEsjlpl Robel Other [employer] Other Start: 52-83-8162Onfizotlt encounterPat Cee [facility] ClinicStart: 72-84-2134oziybfbjsiQcxaxrmcdhx Abdelaziz Facility:[facility] Hospitaltart: 31-98-7121wmmjkhzxwpJW EHAB ELTAHAWYFacility:J7Erjpd: 02-16-2023 End: 67-06-5514updlwlaizxEA JL DANNERFacility:X0Bnzct: 02-11-2023 End: 83-04-6861kqskerecarTR EHAB ELTAHAWYFacility:Y1Ohbyt: 22-02-0380Fcyxrsgdq for general adult medical examination without abnormal findingsDR PAT HUSTON [facility] Hospitaltart: 11-19-2022 End: 01-28-4779pbljvpekxbIurbib [place] Other [employer] Other Start: 29-44-4577Qouxzlazp encounterPat Cee [facility] ClinicStart: 11-18-2022 End: 97-93-3997ahtertuijoAT PAT HUSTONFacility:A0Bcaza: 11-18-2022 End: 80-01-2437Lvchohnth for general adult medical examination without abnormal findingsDR PAT HUSTONFacility:Y6Mglco: 11-04-2022 End: 42-74-1153mdyjmrgneoJH EHAB ELTAHAWYFacility:P7Ciqkt: 07-10-2022 End: 50-39-9928hdmjxphqceHZ PAT HUSTONFacility:O6Lofxe: 91-29-2166Ftkrx health examinationPat Huston Other [employer] Other Start: 05-95-7180Bdulrkijw for general adult medical examination without abnormal findingsPat Huston Other [employer] Other Start: 06-24-2022 End: 16-79-8179tdunhehsgrNE PAT HUSTONFacility:N9Impir: 06-09-2022 End: 16-10-4278qskbxzjyryJP DOCTOR MISCFacility:E0Osork: 06-16-2019 End: 59-16-8586Bxhvwnk encounter procedureOMAR AL-HOURANIFacility:UTMCStart: 75-37-7478Ksrqzlwybwzuo examination normalPat Huston Other Nort [employer] Other Procedures DateProcedureProcedure DetailPerforming ClinicianStart: 25-33-8472LBR HEAD/BRAIN WO/W Scott Niño NP Other Phone: Start: 61-31-1174WKK of bilateral breasts with contrastMD Pat Robel Work Phone: Start: 67-86-4841Czorwfjdv visitPat Robel Other Start: 38-50-6202Wknsjtwancdxz care educationPat Robel Other Screening for malignant neoplasm of breastPat Roebl Other Viral screeningPat Robel Other Plan of Treatment DateCare ActivityDetailAuthorStart: 04-02-2025 End: 16-38-1654Dhyzftr encounter gqepiuoqb78/09/2025 4:00 PM EDT Office Visit [facility] [address] [place] [phone] Harlan Niño NP [address] [place] [address] [facility] ROUTEStart: 10-09-2024 End: 20-23-7301Jlwmort encounter lufuoioww21/16/2024 10:40 AM EST Office Visit [facility] [address] [place] [phone] Harlan Niño NP [address] [place] [address] ArrivedNO [facility] ROUTEComment on above: ArrivedComprehensive metabolic 2000 panel - Serum or PlasmaWood County HospitalXR Pelvis and Hip - bilateral ViewsOrlando Health South Sem[facility]ole Hospital Payers DatePayer CategoryPayerPolicy [id number]-[id number] [facility] [id number] [id number] 2..7.38361[id number] 2..1.890362.3.57[id number] 2..1.119103.3.57[id number] 2..1.270974.3.57[id number] 2..1.077648.3.57[id number] 2..1.781966.3.57[id number] 2.16.840.1.919949.3.57[id number] 2.16.840.1.809239.3.57[id number] 2.16.840.1.877689.3.57[id number] 2.16.840.1.768490.3.57[id number] 2.16.840.1.716774.3.57[id number] 2.16.840.1.671702.3.579.2.382515-38-2088Rnbf-[id number] Other1 (STD)[id number] 50341tce-393c-5h31-y18d-[id number] 2.16.840.1.8[id number] 2.0.1.432100.3.579.2.531 Social History DateTypeDetailFacilityUnknown if ever smokedTenants Harbor [employer] Other Start: 02-28-2024 End: 26-81-9880Mta Assigned At [facility] [employer] Other Start: 72-01-6965Nma Assigned At [facility] Hospitaltart: 04-20-2022 End: 17-32-7787Eremiha smoking status NHISNever smoked tobacco (finding) [facility] Hospitaltart: 19-13-5743Nxshwxu use and exposure Smokeless tobacco non-userNOMS HealthcareStart: 02-28-2024 End: 86-41-7024Zkwcjqhxo beverage intakeLifetime non-drinker (finding)[facility] HealthcareStart: 02-28-2024 End: 42-02-7790Iednpyp of Social functionMid Missouri Mental Health CenterStart: 86-56-4689Gwxquc identityIdentifies as female gender (finding)[facility] HealthcareSexFemale (finding) [facility] Hospitaltart: 31-95-8092WltSoanlfOXFPFormerly [facility] Clinical Notes 11-04-2022 to 05-03-2025 Note Date & WxijSlnxAadatdkf76-68-6900 [facility] Chief Complaint: [...] dizziness. She did see one of our community sports coordinator Dr. Guevara and they discussed the potential [...] Paroxysmal tachycardia (CMS/HCC), Prinzmetal angina, and WPW (Knadu-Mtgoaqcyf-Dsbsh syndrome). Surgical History She has a past [...] to pulmonary hypertension and/o (more content not included)...[facility] 07-27-2023 Evaluation note* Encounter Date Diagnosis Assessment Notes Treatment Notes Treatment Clinical Notes Jul, Abnormal mammogram (ICD-10 - R92 .8) [facility] Other 09-19-2023 Evaluation note* Encounter Date Diagnosis Assessment Notes Treatment Notes Treatment Clinical Notes Jun, Abnormal mammogram of right rae st (ICD-10 - R92.8) [place] [employer] Other 09-12-2023 Evaluation note* Encounter Date Diagnosis Assessment Notes Treatment Notes Treatment Clinical Notes Jun, Screening mammogram for breast c ancer (ICD-10 - Z12.31) [facility] Other 01-11-2023 NoteCARDIAC STRESS TEST Requesting Physician: [...] further information. 7. Clinical correlation is recommended.[facility] noteNo InformationNoheartland [facility] [employer] Other Evaluation noteNo assessment information available [facility] Work Phone: Evaluation note* Diagnosis Onset Date Resolution Status Bilateral hip pain acute [facility] Work Phone: Evaluation note* Diagnosis Abnormal MRI- [...] CERVICAL DISORDERSurgical Historyarthroscopy twice-2006,2008; rhinoplasty Surgical Historylap-hystoscopy, [id number] HistoryhysterectomySurgical Historybone marrow [id number] Historysee above [employer] Other History general Narrative - Reported* Type [...] Title : Outpatient,Surgical HistoryProblem Title : 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 SURGERIES: Right knee arthroscopy, Problem Status : [...] Ligation, Problem Status : Active,Hospitalization Historysee above [employer] Other Reason for referral (narrative)No reason for referral information availablePremier Health [facility] Work Phone: Summary Purpose Family History No Family History Records Found Relationship Condition Age at Onset Recorded Date/T porfirio father Hypertension Unknown Heart diseaseUnknownHistory of strokeUnknownmotherHypertensionUnknown Advance Directives No Advanced Directives Records Found Advance Directive Response Recorded Date/ Time Advance Directives No August 9:55am Advance Directive Response Recorded Date/ Time Advance Directives No August 10:55am Hospital Course Note MR#: [id number] [facility] Pt. Name: Elvia Fox Admitted: 06/16/2019 Discharged: 06/17/2019 Date of : 1975 Physician: Alessandro Lin MD DISCHARGE SUMMARY PRIMARY DIAGNOSES: 1. Typical chest pain with abnormal stress test. Post heart catheterization, which demonstrated no significant coronary artery stenosis. 2. Major depressive disorder. 3. Lower end of normal T4 with normal TSH. 4. Vbjoy-Snzbylucy-Bvfjc. HOSPITAL COURSE: The patient is a 43-year-old [...] and content) DATE CREATED AUTHOR 09/18/2019 [facility] DATE CREATED AUTHOR AUTHOR'S ORGANIZ ATION 03/07/2023 [facility] DATE CREATED AUTHOR AUTHOR'S ORGANIZ ATION 10/14/2023 [facility] DATE CREATED AUTHOR AUTHOR'S ORGANIZ ATION 10/11/2024 [facility] EPIC DATE CREATED AUTHOR AUTHOR'S ORGANIZ ATION 08/28/2025 [facility] REASON FOR VISIT (unrecogniz ed section [...] DateEnd Date Pat Huston MD [address] [place] [address] PCP - General02/27/24Team MemberRelationshipSpecialtyStart DateEnd Date Pat Huston MD [address] [place] [address] PCP - General02/27/24 Jl Aguilar DO [address] [id number] Referring HpdpkpydpJwjchashi96/16/24 Team Status: Inactive Member Role Status Dates Pat Huston MD Primary Care Provider Active Start: May 24, 2025 End: May 24Alicja Coleman ProviderActiveStart: May 24, 2025 End: May 24, 2025Team MemberRelationshipSpecialtyStart DateEnd Date Pat Huston MD PCP - General02/27/24 Harlan Niño NP PCP - [employer]// Jl Aguilar DO [address] [place] [address] Referring MwbcpqfucTmwpenlpd29/16/24 Goals (unrecognized section and content) Goals may [...] BE BASED ON THE PRIMARY CLINICAL RECORDS. [employer]. provides no warranty or guarantee of the accuracy or completeness of information in this document.
--- OUTSIDE RECORDS SUMMARY | 2025-09-12 06:56 | XMS_ITS | Clinical Summary ---
Author Organization [facility] Address [address] [place] [address] Care Team Providers Care Press Reader Name Role Phone Pat Dominique MD Primary Care Provider [phone] Nell Aguilar DO Unavailable [phone] Allergies Active AllergyReactionsCriticalityNoted DateCommentsMeperidine HclGI intolerance 02/25/2024Oxycodone-AcetaminophenGI qtlpbcdeumh01/03/2024 Medications MedicationSigDispense QuantityRefillsLast FilledStart DateEnd DateStatus buPROPion [...] tablet Take 40 mg by mouth at bcvadjh5012/01/2023ctive nitroglycerin (Nitrostat) 0.[address] 0.4 mg under the tongue every 5 (five) minutes if needed for chest pain Active Active Problems ProblemNoted DateDiagnosed DatePrimary xcweojfx59/06/2024Tension-type headache, not njqmayhhqjf85/06/4408Cpjyif43/06/3007Rreprnz28/06/2024Eye exam abnormal 02/25/2024bnormal MRI02/25/20240512Zcwuavrgrh28/03/2024Intractable tension-type tvruvfwl60/03/2024erebrovascular oqddpgw3602/25/2024 Family History Medical HistoryRelationNameCommentsCoronary artery diseaseFatherHyperlipidemia FatherStrokeFatherHyperlipidemiaMotherHypertensionMotherOsteoarthritisMother CancerSisterHyperlipidemiaSisterKidney diseaseSisterOsteoarthritisSisterRelation NameStatusCommentsFatherMotherSister Social History Tobacco UseTypesPacks/DayYears UsedDateSmoking Tobacco: NeverSmokeless Tobacco: Never Tobacco Cessation:Counseling Given: Not Answered Alcohol UseStandard Drinks/WeekCommentsNever0 (1 standard drink = 0.6 oz pure alcohol)CommentsUnknownSex and Gender InformationValueDate RecordedSex Assigned at PfvubOqdxlb54/05/2024 3:50 PM EDTLegal PejXblmke21/15/2023 7:17 PM EDTGender DzdbsqpuCzvayy63/05/2024 3:50 PM EDTSexual OrientationNot on file Last Filed Vital Signs Vital SignReadingTime TakenCommentsBlood Oxsyomvz367/6810/09/2024 11:00 AM EST Wdinp531710/09/2024 11:00 AM ESTTemperature--Respiratory Rate--Oxygen Saturation 98%10/09/2024 11:00 AM ESTInhaled Oxygen Concentration--Mqnoud03.2 kg (214 lb 4 oz)10/09/2024 11:00 AM PFWTuanxg953.1 cm (5' 5 )10/09/2024 11:00 AM ESTBody Mass Index35.6510/09/2024 11:00 AM EST Plan of Treatment Not on file Insurance Care Teams Team MemberRelationshipSpecialtyStart DateEnd Date Pat Dominique MD PCP - General02/27/24 Nell Aguilar DO [address] [place] [address] Referring QgisihkvtWhlgfbhpu71/16/24
--- OUTSIDE RECORDS SUMMARY | 2025-09-12 06:56 | XMS_ITS | Patient Health Record ---
Author Organization [facility] [place] Address [address] [place] [address] Care Team Providers Care Vehicle Body Maker Name Role Phone Pat Dominique MD Primary Care Provider UnavailRudolph Sun Unavailable [phone] Allergies Allergen (clinical drug ingredient) Drug/Non Drug Allergy documented on EMR Reaction Allergy Type Onset Date Status Darvocet-N 100vomitingDrug AllergyActivemeperidineDemerolvomitingDrug Allergy ActiveLevaquinhivesDrug AllergyActiveacetaminophen / oxycodonePercocetvomiting Drug AllergyActive Results Component Value Reference Range Notes HEMOGLOBIN Reviewed date:01/23/2025 07:30:06 AM Interpretation: Performing Lab: Notes/Report: [facility] , Hemoglobin 13.5 12.0-16.0 g/dL Performing Lab:see noteML - [facility] LBXR Chest PA and Lateral (Routine CXR) * Reviewed date:01/18/2025 01:36:46 PM Interpretation: Performing Lab: Notes/Report: XR chest 2V Reviewed date:01/23/2025 08:08:00 AM Interpretation: Performing Lab: Notes/Report: Source Facility: [facility]-[address] [place] [address] [place] [address] XRay Report Signed Patient: ELVIA GUTIÉRREZ MR#: [id number] : 1975 Acct:[id number] Age/Sex: 49 / F ADM Date: 01/18/25 Loc: RAD Attending Dr: Rudolph Gonsalves D.O. Ordering Physician: Rudolph Gonsalves D.O. Date of Service: 01/18/25 Procedure(s): XR chest 2V Accession Number(s): [id number] cc: Pat Dominique M.D.; Rudolph Gonsalves D.O. [place] [address] Patient Name: ELVIA GUTIÉRREZ MRN: [id number] date: 1975 Sex: F Assigned Patient Location: [facility] Current Patient Location: [facility] Accession/Order Number: [id number] Exam Date: 01/18/2025 13:05 Report Date: 01/18/2025 [...] Sina Ruiz M.D.01/18/2025 1:06 PM Dictation Location: [place] [address] Electronically authenticated by: [id number] Y Date: 01/18/2025 13:06 Dictated By: Sina Ruiz D.O. Signed By: 01/18/25 1309 DD/ 1306 TD/TT: Quotation Checker:RT pulmonary function test Reviewed date:01/25/2025 04:34:13 PM Interpretation: Performing Lab: Notes/Report: Source Facility: [place] [address] [place] [address] Respiratory Report Signed Patient: ELVIA GUTIÉRREZ MR#: [id number] : 1975 Acct:[id number] Age/Sex: 49 / F ADM Date: 01/18/25 Loc: RAD Attending Dr: Rudolph Gonsalves D.O. Ordering Physician: Rudolph Gonsalves D.O. Date of Service: 01/18/25 Procedure(s): RT pulmonary function test Accession Number(s): [id number] cc: [facility] Test Date: 2025-01-18 Pat Name: ELVIA GUTIÉRREZ Department: Room: - Gender: Female Chief Legal Officer: Rodolfo Morales RRT : 1975 Requested By: Rudolph Gonsalves Order Number: [id number] [place] MD: Rudolph Gonsalves Interpretive Statements Pulmonary [...] Signed By: 01/25/25 1628 DD/ 1248 TD/TT: Quotation Checker: Reason For Referral No Information Medications Medication [...] Administration Date Status Comme nts Flu, Flucelvax (55465) 6 mos and older, single-dose syringe (7489-9385) Unknown 08/16/2024 Administered SARS-COV-2 (COVID 19 Moderna - Booster 0.25mL)Fafwtel5908/20/2021dministered Social History Tobacco Use: Social History Observation Description Date Details (start date - stop date) Never Smoker NA - NA Tobacco Control (Standard) Question Answer Notes Tobacco use: Nonsmoker Problems Problem Type SNOMED Code ICD Code Onset Dates Problem Status W/U Status Risk Notes Problem Shortness of breath (937140113) Shortness of breath (R06.02) ActiveconfirmedProblemHyperlipidaemia (35416257)HLD (hyperlipidemia) (E78.5) Activeconfirmed Vital Signs Heart Rate 66 /min 01/23/2025 Cjliypcbmqq57.0 degrees Hyymmjrajb79/01/2025Respiratory Rate18 /min01/23/2025 Blood pressure mm Hg01/23/20252948Rlrkcvun21 %01/23/20259546Fmadnc11 in 01/23/2025lood pressure ujwigwlt690 mm Hg01/23/20253886Novimk600.6 lbs01/23/2025MI 35.04 kg/m201/23/2025 Procedures Procedure Date Ordered Date Performed Result Body Sit e PFT (47035, 17598, 63583) 12/27/2024 01/18/2025 N/A Encounters Encounter Location Date Provider Diagnosis [facility] [address] [place] [address] 01/23/2025 Rudolph Gonsalves Abnormal results of pulmonary function studies R94.2 and Patent foramen ovale Q21.12 [facility] [address] [place] [address] 12/27/2024 Rudolph Gonsalves Abnormal results of pulmonary [...] and cardiopulmonary vascular disease. A PFO with gddhg-qn-gjgw shunt could cause a decreased DLCO. No [...] ACCESS PPO PLUS LOCAL PLAN [address] [place] [address] [id number] Kwasi Gutiérrez - patient is the insured Medical (General) History Medical History History ICD Code PFO (patent foramen ovale) Q21.12 Abnormal diffusion capacity determined b y pulmonary function test R94.2 HLD (hyperlipidemia) E78.5 Surgical History Surgery Date(Month/Year) hysterectomy tubal ligationright knee arthroscopyrhinoplasty
--- OUTSIDE RECORDS SUMMARY | 2025-09-12 06:56 | XMS_ITS | Encounter Summary ---
Author Organization [facility] Address [address] [place] [address] Care Team Providers Care Fish Cutter Name Role Phone Pat Dominique MD Primary Care Provider [phone] Encounter Details DateTypeDepartmentCare Team (Latest Contact Info)Ebwehlcedxr27/13/2025Telephone [facility] [address] [place] [address] Maria Dolores Jose MA Social History Tobacco UseTypesPacks/DayYears UsedDateSmoking Tobacco: NeverSmokeless Tobacco: NeverAlcohol UseStandard Drinks/WeekCommentsNot Currently0 (1 standard drink = 0.6 oz pure alcohol)[place] Safety & EnvironmentAnswerDate RecordedFear of Current or Ex-PartnerNot on file12/16/2023Emotionally AbusedNot on file12/16/2023hysically AbusedNot on file12/16/2023Sexually AbusedNot on file12/16/2023hysically or Sexually AbusedNot on file12/16/2023CommentsNoSex and Gender Information ValueDate RecordedSex Assigned at BirthNot on fileLegal EqzDrqvzz16/29/2022 10:21 PM EDTGender IdentityNot on fileSexual OrientationNot on filedocumented as of this encounter Miscellaneous Notes * Telephone Encounter - Maria Dolores Jose MA - 09/06/2025 11:03 AM EST Images from the original note were not included. Regarding lab results from 09/06/2025: MD Maria Dolores Polanco MA Have her stop the hydrochlorothiazide and potassium and repeat labs in 5 days Thanks Patient made aware. She will repeat labs. BMP faxed to [facility]. documented in this encounter Plan of Treatment NameTypePriorityAssociated DiagnosesOrder ScheduleBasic metabolic panelLab Routine Hypokalemia Expected: 09/06/2025 (Approximate), Expires: 09/06/2026documented as of this encounter Visit Diagnoses Diagnosis Hypokalemia- Primary Hypopotassemia documented in this encounter Care Teams Team MemberRelationshipSpecialty[place] [address] [place] [address] #A PCP - Dcnzpdx81/2/22documented as of this encounter
--- OUTSIDE RECORDS SUMMARY | 2025-09-12 06:56 | XMS_ITS | Clinical Summary ---
Author Organization [facility] tem Address [facility] [address] [place] [address] Care Team Providers Care Data Steward Name Role Phone Pat Dominique MD Primary Care Provider [phone] Allergies Active AllergyReactionsCriticalityNoted DateCommentsPropoxyphene N-Acetaminophen Rmilymei59/28/5911OnkkugjbbhgzGrxxr93/28/7895AryrhcutqkZklaevau90/21/2014 Oxycodone-YsjplncsdhuseLeyeszcj66/21/2014 Medications MedicationSigDispense QuantityRefillsLast FilledStart DateEnd DateStatus buPROPion [...] UseTypesPacks/DayYears UsedDateSmoking Tobacco: NeverSmokeless Tobacco: NeverPHQ-2AnswerDate RecordedTotal Gjatn915/10/2022ChildcareAnswerDate Recorded FbqfmieviLvexade44/10/2019EmploymentAnswerDate RecordedEmploymentUnknown 04/03/2019CommentsUnknownSex and Gender InformationValueDate RecordedSex Assigned at BirthNot on fileLegal LwcJvpenu61/04/2015 2:10 PM EDTGender Identity Not on fileSexual OrientationNot on file Last Filed Vital Signs Vital SignReadingTime TakenCommentsBlood Cvwsifys766/7708 10:39 AM EDT Wvgci947706/03/2022 10:39 AM EDTTemperature--Respiratory Rate--Oxygen Saturation-- Inhaled Oxygen Concentration--Zqznqm88.1 kg (214 lb)06/03/2022 10:39 AM EDT Lbwovj875.6 cm (5' 4 )06/03/2022 10:39 AM EDTBody Mass Index36.7306/03/2022 10:39 AM EDT Plan of Treatment Health MaintenanceDue DateLast DoneCommentsDepression Eiwhcreak42/10/1989Tobacco Cfouopsiy57/10/1989Adult BMI Jqfshoryl82/10/1995DTaP,Tdap and Td Vaccines (1 - Tdap)1996Pap Smear1998COVID-19 Vaccine ( - 2024- season) 510/, 11/21/2020, 10/23/2020Influenza Gnrkals1306/25/2025 08/19/2018 Medical Devices Not on file Insurance Care Teams Team MemberRelationshipSpecialtyStart DateEnd Date Pat Dominique MD [facility] [place] [address] PCP - GeneralFamily Nedynjof11/28/21
--- OUTSIDE RECORDS SUMMARY | 2025-09-12 06:56 | XMS_ITS | Clinical Summary ---
Author Organization [facility] Address [address] [place] [address] Care Team Providers Care Dinkey Operator Slag Name Role Phone Amos Vazquez MD Primary Care Provider [phone] Addie Mojica RN Unavailable [phone] Allergies Active AllergyReactionsCriticalityNoted DateCommentsPropoxyphene N-Acetaminophen Qvnuxudg32/21/2857PggfqesiuaUnohhvjz29/21/2014Oxycodone-AcetaminophenVomiting 12/15/2013 Medications MedicationSigDispense QuantityRefillsLast FilledStart DateEnd DateStatus PRISTIQ 50 mg 24 hr tablet Take 50 mg by mouth once daily.12/14/2013ctive HYDROcodone-acetaminophen 5-325 mg per tablet Take 1-2 tablets by mouth every 6 hours as needed for Pain. 30 tablet ctive Active Problems ProblemNoted DateDiagnosed OekiLaqpvy82/05/2014 Assessment & Plan (12/27/2013 11:30 AM EST): [...] InformationValueDate RecordedSex Assigned at BirthNot on fileLegal ThgJcxpij24/02/2012 8:55 AM ESTGender Identity Not on fileSexual OrientationNot on fileOccupationIndustryJob Start DateJob End DateCardiovascular TechNot on fileNot on fileNot on file Last Filed Vital Signs Vital SignReadingTime TakenCommentsBlood Jrhxjtok567/6903 2:10 PM EDT Awfkx5628 2:10 PM IZNGmnkqvsoqgh32.8 ??C (98.2 ??F)01/16/2014 2:10 PM EDTRespiratory Uvhl9287 2:10 PM EDTOxygen Xpwpxgimcr37%01/16/2014 2:10 PM EDTInhaled Oxygen Concentration--Xtynfc53 kg (200 lb 9.9 oz)01/16/2014 2:10 PM ADAOnulmp176 cm (5' 4.96 )01/16/2014 2:10 PM EDTBody Mass Index33.42 01/16/2014 2:10 PM EDT Plan of Treatment Health MaintenanceDue DateLast DoneCommentsAnxiety Zvaunwcli41/10/1995Depression Bdkroxlkk44/10/1995Hepatitis C Nhwltrcww12/10/1995DTaP,Tdap,Td Vaccine (1 - Tdap)1996Hepatitis B Vaccine (1 of 3 - 19+ 3-dose series)1996 Cervical Cancer Onsuwzzxu83/10/1998Mammogram Awtnhcmey71/10/2017CT Colonography 2Cologuard (FIT-DNA)0923Kwnannixzrd92/10/2022Colorectal Cancer Fwzvqlqhi75/10/2022Diabetes Aiikyxugh08, 12/15/2013Fecal Occult Blood2022Lipid Ztwaypzmq18/10/8297Qavsdocpuzcmr02/10/2022Covid-19 Vaccine ( - season)2025Influenza Vaccine (#1)2025HIV BpudzqxdtYzuenxapk94/21/2014 Procedures Procedure NamePriorityDate/TimeAssociated DiagnosisCommentsCOMPREHENSIVE METABOLIC BDJBQZoibeou57/05/2014 8:48 AM EST Bone marrow donor IDM PANEL INCOPYaqapiq85/21/2014 12:10 PM EST Bone marrow donor from Last 3 Months or Most Recently Relevant to Health Maintenance Results * (ABNORMAL) COMP METABOLIC PANEL (12/27/2013 8:48 AM EST)ComponentValueRef RangeTest MethodAnalysis TimePerformed AtPathologist SignatureProtein, Total 7.06.0 - 8.4 g/dLTRIHEALTH GOOD SAMARITAN [facility]ITAL MAIN LABORATORYAlbumin4.03.5 - 5.0 g/dL [facility] MAIN LABORATORYCalcium9.08.5 - 10.5 mg/dLTRIHEALTH GOOD SAM[facility]AN [facility] MAIN LABORATORYBilirubin, Total0.40.0 - 1.5 mg/dLOHIOHEALTH NELSONVIL[facility] LABORATORYAlkaline Oefypstlfhd5334 - 150 U/LCTRUMBULL REGIONAL MEDICAL [facility]ENTER MAIN LABORATORY FZK616 - 40 U/LCCLEVELAND CLINIC [facility]OR [facility] NBBRPHGYWEBzlpulw93(L)65 - 100 mg/dL [facility] LABORATORYBUN7(L)8 - 25 mg/dLOHIOHEALTH [facility]ELSONVIL[facility] LABORATORYCreatinine0.810.70 - 1.40 mg/dLOHIOHEALTH [facility]VIL[facility] LABORATORY Qzgjuj992233 - 148 mmol/LCCLEVELAND CLINIC MENTOR [facility] LABORATORYPotassium4.03.5 - 5.0 mmol/LCTRUMBULL REGIONAL MED[facility]ENTER MAIN LFJDVMQMLSSfrlbgjk82584 - 110 mmol/LCCLEVELAND CLINIC MENTOR [facility]OSPITAL AVSHULWABISI53073 - 32 mmol/LCCLEVELAND CLINIC [facility]ENT[facility]ITAL LABORATORYAnion Gap70 - 15 mmol/LCCLEVELAND CLINIC [facility] WTJYEPYRIWLRY830 - 45 U/LCCLEVELAND CLINIC [facility] LABORATORYeGFR->60[facility] LAB[facility] eGFR-All Other Races>60.[facility] LABORATORYComment: eGFR (Estimated GFR) Units of measure: [...] Cr MDLABORATORYFinal ResultPerforming OrganizationAddressCity/State/ZIP CodePhone Number [facility] [address] [place] [address] * (ABNORMAL) IDM PANEL ADULT (12/15/2013 12:10 PM EST)ComponentValueRef Range Test MethodAnalysis TimePerformed AtPathologist SignatureHBsAgNegative or NonreactiveNEGNROHIOHEALTH NELSONVILLE [facility]ENTER LABORATORYanti-HCVNegative or NonreactiveNEGNROHIOHEALTH NEL[facility]VIL[facility] LABORATORYanti-HIV1/2Negative or NonreactiveNEGNROHIOHEALTH NELSONVILLE [facility]ENTER LABORATORYanti-HBcNegative or NonreactiveNEGNRCLEVELAND CLINIC MAIN LABORATORYanti-HTLV I/IINegative or NonreactiveNEGNRTRIHEALTH GOOD SAMARITAN [facility]ITAL MAIN LABORATORYSTSNegative or Nonreactive NEGMARY [facility]UT[facility] LABORATORYCMVPositive or Reactive(A)NEGMARY [facility] LABORATORYHIVNATNegative or NonreactiveNEGMARY [facility] LABORATORYHCVNATNegative or NonreactiveNEGST. [facility]ONY'[facility] MAIN LABORATORY HBVNATNegative or NonreactiveNEGMARY RUT[facility]ITAL LABORATORYWNVNAT Negative or NonreactiveNEGMARY [facility]ITAL LABORATORYChagasNegative or NonreactiveNEGMARY [facility]ITAL LABORATORYExpiration of [id number] Test kits are FDA approved for Donor Screening Testing. Test performed by: [facility], [address] [place] [id number], CLIA No. [id number].[facility] LABORATORYSpecimen (Source)Anatomical Location / LateralityCollection Method / VolumeCollection TimeReceived TimeBlood specimen (specimen)BLOOD SPECIMEN / Tpgfgus4012/15/2013 12:10 PM EST12/15/2013 12:16 PM EST Narrative Authorizing ProviderResult TypeResult StatusAamiguel angel Cr MDLABORATORYFinal ResultPerforming OrganizationAddressCity/State/ZIP CodePhone Number [facility] [address] [place] [address] from Last 3 Months or Most Recently Relevant to Health Maintenance Insurance * Guarantor: Elif Gutiérrez TypeRelation to PatientDate of BirthPhone Billing AddressPersonal/PfqvzrCcwr1975 [address] [address] * Guarantor: Gutiérrez, Elif AAccount TypeRelation to PatientDate of BirthPhone Billing OhnomggXgaykDbft1975 [address] [address] Care Teams Team MemberRelationshipSpecialtyStart DateEnd Amos Vazquez MD PCP - GeneralFamily Medicine11/15/13 Addie Mojica, [address] [place] [address] Registered NurseBlood and Marrow Transplant12/06/13
--- OUTSIDE RECORDS SUMMARY | 2025-09-12 06:57 | XMS_ITS | Clinical Summary ---
Author Organization [facility] Address [address] [place] [address] Care Team Providers Care Practicing Urologist Name Role Phone Pat Dominique MD Primary Care Provider [phone] Allergies Active AllergyReactionsCriticalityNoted NqatPjyupeuqBcqaukbgheenWcndb91/28/2021 MeperidineGI intolerance,Other12/15/2013Oxycodone-AcetaminophenOther,GI rachcsdjxxn40/21/2014Propoxyphene N-AcetaminophenOther,GI sqkmyussrmg50/21/2014 Medications MedicationSigDispense QuantityRefillsLast FilledStart DateEnd DateStatus buPROPion XL (Wellbutrin XL) 300 mg 24 hr tablet Take 300 mg by mouth in the morning.Active DULoxetine (Cymbalta) [address] capsule Take 30 mg by mouth in the morning.Active hydroCHLOROthiazide (HYDRODiuril) 25 mg tablet Indications:Essential hypertensionTAKE 1 TABLET BY MOUTH IN THE MORNING 90 tablet 5Active clopidogrel (Plavix) 75 mg tablet Indications:Coronary artery disease of rincon artery of rincon heart with stable angina pectorisTAKE 1 TABLET BY MOUTH ONCE DAILY DIRECTED 90 tablet 5Active metoprolol tartrate (Lopressor) 25 mg tablet Indications:Coronary artery disease of rincon artery of rincon heart with stable angina pectorisTAKE 1 TABLET [...] 40 mg tablet Indications:Coronary artery disease of rincon artery of rincon heart with stable angina pectorisTAKE 1 TABLET [...] tablet /ctive Active Problems ProblemNoted DateDiagnosed DatePrimary zbhqfotl91/06/8355Drdfak41/06/2024Vertigo 02/28/2024bnormal MRI02/25/20249814Yvuwkvhlma10/03/2024erebrovascular disease 02/25/2024Eye exam qahagrwh63/03/2024Tension type hdegjfra29/03/2024hest pain 12/07/2022 Overview (12/07/2022): Added automatically from request for surgery [id number] Paroxysmal dzrjbxqemkz47/06/2020Prinzmetal lbfxyz1105/30/20208769Mkbjz-Lceuvolhz-Dmbdu cqgcfap0505/30/20203029Arnepy14/05/2014 Overview (09/25/2022): Last Assessment & Plan: She [...] for the next 7 days. Encounters DateTypeDepartmentCare OvoeOoqmavvywgj74/13/2025Telephone [place] [address] [facility] [place] [address] Maria Dolores Jose MA 08/28/2025Orders Only [facility] [address] [facility] [place] [address] Maria Dolores Jose MA Hypokalemia (Primary Dx)08/27/2025Telephone [facility] [address] [facility] [place] [address] Maria Dolores Jose MA from Last 3 [...] ValueDate RecordedSex Assigned at BirthNot on fileLegal NgzSwewxb63/29/2022 10:21 PM EDTGender IdentityNot on fileSexual OrientationNot on file Last Filed Vital Signs Vital SignReadingTime TakenCommentsBlood Tgxuzfmg232/7207 9:25 AM EDT Pbwmb4117 9:25 AM EDTTemperature--Respiratory Awsn1158 3:30 PM ESTOxygen Uqotwgbfhq26%05/03/2025 9:25 AM EDTInhaled Oxygen Concentration-- Cpgaxv64.3 kg (208 lb)05/03/2025 9:25 AM VKZDqmoem426.6 cm (5' 6 )05/03/2025 9:25 AM EDTBody Mass Index33.5707 9:25 AM EDT Plan of Treatment Health MaintenanceDue DateLast DoneCommentsCT Qhpbzfvreucv1977Colonoscopy 1977Colorectal Cancer Hwxrmmvsv1977FIT-DNA1977FIT1977 FOBT1977 3143Scifbnrnhajws1977Depression Pestfbtxz31/10/1989Hepatitis B Vaccines (1 of 3 - 19+ 3-dose series)1996Pneumococcal Vaccine: Pediatrics (0 to 5 Years) and At-Risk Patients (6 to 64 Years) (1 of 2 - PCV)1996Pap Smear1998Adult Xgdkrec6109/03/1999Cervical Cancer Ovcqsnbnk85/10/2007 HPV/Nltces4809/03/20075453Rjuaokwol26/10/2017COVID-19 Vaccine ( season) , 11/21/2020, 10/23/2020Influenza Vaccine [...] patient's age to complete this topic Insurance Care Teams Team MemberRelationshipSpecialtyStart DateEnd Date Pat Dominique MD [address] [facility] #A PCP - Uttgbmz19/2/22
[2025-09-12 07:23] LABS: Anion Gap 11.6; Blood Urea Nitrogen 7.0 mg/dL (7.0-18.0); Calcium 8.4 mg/dL (8.5-10.1); Carbon Dioxide 26.0 mmol/L (21.0-32.0); Chloride 107 mmol/L (98-107); Estimated GFR (African America >60 (>=60 mL/min/1.73m^2); Estimated GFR (Non-African Ame 52 (>=60 mL/min/1.73m^2); Glucose 96 mg/dL (74-106); Potassium 3.6 mmol/L (3.5-5.1); Sodium 141 mmol/L (136-145)
== END 2025-09-12 06:52 | disposition home or self-care (01) ==
LOC: LAB 06:52
PROVIDERS: PCP Family Medicine; Visit Provider Internal Medicine Interventional Cardiology
DX: E87.6 Hypokalemia (principal)
CPT/HCPCS: 36415; 80048

== ENCOUNTER 2025-09-19 06:42 | Outpatient (OUT) | payer BC, SELFPAY ==
--- OUTSIDE RECORDS SUMMARY | 2025-09-14 06:18 | XMS_ITS | Continuity of Care Document ---
Author Organization [facility] Address [address] [place] [address] Phone Care Team Providers Care Zipper Trimmer Name Role Phone Pat Dominique MD Primary Care Provider Jose Wong DO Attending Provider Sina Hutson DO Attending Provider Vidhi Anderson Attending Provider [phone] Nell Aguilar DO Attending Provider [phone] Pat Dominique MD Attending Provider Care Teams Patient Care Team [...] 2025 Chris Young ProviderActiveStart: August 27, 2025 Visit Care Team Team Status: Active Member Role/Relationship Status Dates Pat Dominique MD Primary Care Provider Active Start: September 06, 2025 Vidhi Monreal ProviderActiveStart: September 06, 2025 Visit Care Team Team Status: Inactive Member Role/Relationship Status Dates Pat Dominique MD Primary Care Provider Active Start: September 11, 2025 End: September 11, 2025Chris Garcia ProviderActiveStart: September 11, 2025 End: September 11, 2025 Patient Care Team Team Status: Active Member Role/Relationship Status Dates Pat Dominique MD Primary Care Provider Active Start: September 12, 2025 Vidhi Alexy Farrreji ProviderActiveStart: September 12, 2025 Patient Care Team Team Status: Inactive Member Role/Relationship Status Dates Pat Dominique MD Primary Care Provider Active Start: September 14, 2025 End: September 14, 2025Marielle Evans ProviderActiveStart: September 14, 2025 End: September 14, 2025 Chief Complaint and Reason for Visit Chief Complaint Admit Date Follow up September 11, 2025 2:00pm Discuss BW Results September 14, 2025 10:35am Reason for Visit Admit Date Abnormal brain MRI September 11, 2025 2:00pm CVD (cerebrovascular disease) August 252024 2:00pm Vertigo September 11, 2025 2:00pm Word finding difficulty September 11, 2:00pm Colon cancer screening September 14 10:35am Family history of polycystic kidney dise ase September 14, 2025 10:35am Screening mammogram for breast cancer No vember 2024 10:35am Stage 3a chronic kidney disease September 14, 2025 10:35am Reason for Referral Type Reason(s) Provider Provider Contact Information P rovider Address Start Date Stage 3a chronic kidney disease Family history of polycystic kidney xmnizumP24.31 - Chronic kidney disease, stage 3a,Z82.71 - Family history of polycystic kidneyFPG NephrologyWork Phone: [phone] Chin Fierro. [facility] [address]Crcaaxzx 2024 Allergies, Adverse Reactions, Alerts Allergen Type Severity Reaction Last Updated Verified Status Comments levofloxacin Allergy Unknown Hives August 10:51am Yes Active meperidineAllergyUnknownVomitingSeptember 14, 2025 10:51amYesActiveoxycodone AllergyUnknownVomitingSeptember 14, 2025 10:51amYesActivepropoxypheneAllergy UnknownVomitingSeptember 14, 2025 10:51amYesActivesimvastatinAllergyUnknown [facility]2024 10:51amYesActiveDarvocet A500 *ANALGESICS - OPAllergy UnknownHivesOctober 2023 7:56amNoActiveFree Text Allergy: Darvocet A500 *ANALGESICS - OPIOID*; Onset Date: 10/27/2016 Social History Smoking Status Status Start Date End Date Date of Observa tion Never smoked tobacco (finding) April 20, 2022 4:30pm Observation Status Observation Response Date of Response Legal Sex Female (finding) Sex Assigned At BirthFemaleNovember 1974Pregnancy StatusNNovember 2024 Family History Relationship Condition Age at Onset Recorded Date/T porfirio father Hypertension Unknown Heart diseaseUnknownHistory of strokeUnknownmotherHypertensionUnknownHeart diseaseUnknown Problems Active Problems Problem Diagnosis/Recorded Date Onset Date Stat us Word finding difficulty May 24, 2025 3:36pm Unknown Active Colon cancer screening September 14, 2025 11:10am Unk nown Active Screening mammogram for breast cancer September 14, 025 11:10am Unknown Active Family history of polycystic kidney disease September 14, 2025 11:07am Unknown Active CVD (cerebrovascular disease) May 24, 2025 5:25pm U nknown Active Wellness examination August 23, 2024 10:36am Unknow n Active Vertigo May 24, 2025 5:25pm Unknown Activ e Bilateral hip pain August 23, 2024 10:38am Unknown Active Stage 3a chronic kidney disease September 14, 2025 11 :07am Unknown Active Abnormal brain MRI May 24, 2025 3:36pm Unknown Active Medications Medication Status Dose Units Route Directions Qty Days Refills S tart Date Stop Date End Date Reason(s) Instructions Adherence Duloxetine 30 mg capsule,delayed release(DR/EC) Discontinued 1 CAP PO Daily August 22, 2024 11:[facility]pm[facility] 2023 10:19amFreeTextSig: Take 1 capsule by mouth every day; Note: Source Status: Taking; Refills: 0; Qty: 90 Capsule; Provider: Heather Mejia ( )Diltiazem Hcl 120 mg tabletDiscontinued2 TABPODailyOctober 2023 11:00pmOctnorton [facility] 2023 10:20amFreeTextSi tablets Orally daily; Note: Source Status: Takingtotal of 240 mg; Provider: Trip Stewart ( )Isosorbide Mononitrate 60 mg tablet extended release 24 ptEulryjfnqzah3WLUARPqkkjBasbnsp 2023 11:00pmOctober 2023 10:20amFreeTextSi tablet in the morning Orally Once a day; Note: Source Status: Lauylg845 mg; Provider: Trip Stewart ( )Duloxetine (Cymbalta) 30 mg capsule,delayed release(DR/EC)Zmjvzt50HYTMJvntxBzalznz 2023 11:00pmComplies with drug therapyIsosorbide Mononitrate 120 mg tablet extended release 24 zuDtztqp063MMAFDsigiEwfgazv 2023 11:00pmComplies with drug therapyDiltiazem Hcl (Cardizem Cd) 240 mg capsule,extended release 24hr Qpsqdwehehsg511LNVICgngiLanribv 2023 11:00pmOctnorton [facility] hospital 2023 10:19am Citalopram 20 mg tabletDiscontinuedMGPOOctnorton brownsboro hospital 2023 11:00pmJuly 2024 3:19pmFreeTextSig: Citalopram Hydrobromide( 20MG Oral 2 times daily ) Active -Hx Entry Oral 2 times daily; Note: Source Status: Taking*Pick strength-form from [facility] for eRX*; Provider: Trip Stewart ( )Bupropion Hcl 100 mg cqwbbdMhezfjrnahfz432BUDRQmakz daily August 22, 2024 11:00pmJuly 2024 3:19pmDiltiazem Hcl 120 mg tablet Hvnwqohhcmmn999CSGDUocazVloartq 2023 10:19amJuly 2024 3:19pm FreeTextSi tablets Orally daily; Note: Source Status: Takingtotal of 240 mg; Provider: Trip Stewart ( )Diltiazem Hcl (Cartia Xt) 240 mg capsule,extended release 24hrDiscontinuedMGPOJuly 2024 11:00pmNovember 2024 2:07pmClopidogrel (Plavix) 75 mg epxerpLsgbvd70FEDWFrfqkLfoc 2024 11:00pmComplies with drug therapyNitroglycerin 0.4 mg tablet, sublingual Active0.4MGSUBLINGUALOnceJu2024 11:00pmComplies with drug therapy Aspirin 81 mg drdtevMeqehf34MUGUVpplfQggp 2024 11:00pmComplies with drug therapyHydrochlorothiazide 25 mg mwkblrYuqqtl60CMBTVpibjHiin 2024 11:00pm Complies with drug therapyRosuvastatin 40 mg kxbpgwTxvwsr36HQZXCijniNzjz 30th, 2025 11:00pmComplies with drug therapyBupropion Hcl (Wellbutrin Xl) 300 mg tablet extended release 24 dsAgrvlb498WKMZFxlty morningMay 23, 2025 11:00pm Complies with drug therapyMetoprolol Tartrate 25 mg kybepkFslszmkbjvzq04FAQG DailyJu2024 11:00pmNov2024 2:07pmDiltiazem Hcl (Cartia Xt) 240 mg capsule,extended release 24hrActiveMGPODailySeptember 11, 2025 2:06pm Complies with drug therapyMetoprolol Tartrate 25 mg tkntodSzxthl88FBIKRnzuz dailySeptember 11, 2025 2:06pmComplies with drug therapyPotassium Chloride 20 mEq tablet extended jhealvnYidfqz46BSEFIHvhfsHybbgofc 21st, 2025 12:00amComplies with drug therapy Relevant Diagnostic Tests and/or Laboratory Data Laboratory Results Test Collection Date/Time Result Date/Time Result Interpretation Reference Range Result Comment Performing Site Estimated Average Glucose August 22, 2025 6:17am August 22, 2025 6:17am 105 mg/dL Cholesterol/HDL RatioOct2024 6:17am2.63.3 - 4.4 LOW RISK4.4 - 7.1 AVERAGE RISK7.1 - 11.0 MODERATE RISK>11.0 HIGH RISKAnion GapApex [facility] 2024 6:17am12.1Basophils # (Auto)August 22, 2025 6:17amOctober 2024 6:17am 0.0 10 3/uL0.0-0.1Anion [facility]2024 8:06amNovember 2024 8:06am9.4 Anion GapNov2024 7:16amNovember 2024 7:16am10.7Anion Gap September 12, 2025 7:00amNovemb2024 7:00am11.6Hemoglobin Q4lQrwabvg 2024 6:17amOctober 2024 6:17am5.3 %4.5-6.2ADA RECOMMENDED LIMIT 4.0 - 6.0ADA THERAPEUTIC TARGET < 7.0ACTION SUGGESTED> 7.0Cholesterol LevelOctober 2024 6:33rt652 mg/dL<=200Albumin/Globulin RatioOctnorton browns[facility] hospital 2024 6:17am 0.9Basophils (%) (Auto)August 22, 2025 6:17amOctober 2024 6:17am0.4 % 0.2-2.0BUN/Creatinine RatioNove2024 8:06amNovemb2024 8:06am7.0 BUN/Creatinine RatioNoveer 2024 7:16amNovember 2024 7:16am7.2 BUN/Creatinine RatioNoveencompass health rehabilitation [facility] 2024 7:00amNovember 2024 7:00am6.3HDL CholesterolOctnorton [facility] hospital 2024 6:17am44 mg/dL40-60> or =60 mg/dl - LOW CARDIOVASCULAR RISK<40 mg/dl - HIGH CARDIOVASCULAR RISKAlbuminOctnorton [facility]ns[facility] hospital 2024 6:17am3.4 g/dL3.4-5.0Eosinophils # (Auto)August 22, 2025 6:17amOctober 2024 6:17am0.3 10 3/uL0.0-0.7Blood Urea NitrogenNov2024 8:06am August 27, 2025 8:06am8.0 mg/dL7.0-18.0Blood Urea NitrogenNovember 2024 7:16amNovember 2024 7:16am8.0 mg/dL7.0-18.0Blood Urea NitrogenNovember 2024 7:00amNovember 2024 7:00am7.0 mg/dL7.0-18.0LDL Cholesterol, CalculatedOctober 2024 6:17am45.8 mg/dL<100 mg/dl USWNQHC748-893 mg/dl NEAR OR ABOVE RQZKYGQ551-574 mg/dl BORDERLINE KNHO202-065 mg/dl HIGH>190 mg/dl VERY HIGHAlkaline PhosphataseOctober 2024 6:17am60 U/B56-836Hgyknmtcukw (%) (Auto)August 22, 2025 6:17amOctober 2024 6:17am3.4 %0.9-7.0Calcium LevelNovverde valley medical center 2024 8:06amNovemb2024 8:06am8.7 mg/dL8.5-10.1Calcium LevelNovverde valley medical center 2024 7:16amNoveer 2024 7:16am8.9 mg/dL8.5-10.1 Calcium LevelNovember 2024 7:00amNoveer 2024 7:00am8.4 mg/dLBelow low normal8.5-10.1Triglycerides LevelOctober 2024 6:51ww118 mg/dL<=150 Alanine Aminotransferase (ALT/SGPT)August 22, 2025 6:17am25 U/L14-59 HematocritOctober 2024 6:17amOctober 2024 6:17am40.2 %36.0-48.0 Chloride LevelNovverde valley medical center 2024 8:06amNovemb2024 8:40ks328 mmol/L98-107 Chloride LevelNovverde valley medical center 2024 7:16amNovember 2024 7:51ey510 mmol/L 98-107Chloride LevelNovember 2024 7:00amNoveer 2024 7:35je169 mmol/R66-585YIDR CholesterolOctober 2024 6:17am23.2 mg/dLAspartate Amino Transf (AST/SGOT)August 22, 2025 6:17am21 U/M64-42NzcbwvqqktNssljkv 2024 6:17amOctober 2024 6:17am14.0 g/dL12.0-16.0Carbon Dioxide Level August 27, 2025 8:06amNovemb2024 8:06am30.0 mmol/L21.0-32.0Carbon Dioxide LevelKing'S [facility]aughters [facility] 2024 7:16amNovember 2024 7:16am28.7 mmol/L 21.0-32.0Carbon Dioxide LevelKing'S Daughters Medical Center 2024 7:00amNovemb2024 7:00am26.0 mmol/L21.0-32.0BUN/Creatinine RatioOctnorton brownsboro hospital 2024 6:17am10.2 Immature Granulocyte # (Auto)August 22, 2025 6:17amOctober 2024 6:17am 0.03 10 3/uL0.00-0.03CreatinineNovant Health2024 8:06amNove2024 8:06am1.14 mg/dLAbove high normal0.55-1.02CreatinineKing'S Daughters Medical Center 2024 7:16am September 06, 2025 7:16am1.11 mg/dLAbove high normal0.55-1.02CreatinineKing'S Daughters Medical Center 2024 7:00amNove2024 7:00am1.12 mg/dLAbove high normal0.55-1.02 Blood Urea NitrogenOctnorton brownsboro hospital 2024 6:17am12.0 mg/dL7.0-18.0Immature Granulocyte % (Auto)August 22, 2025 6:17amOctober 2024 6:17am0.3 % 0.0-0.5Estimated GFR ()August 27, 2025 8:06amNovemb2024 8:06am>60>=60 mL/min/1.73m 2Estimated GFR ()September 06, 2025 7:16amNovemb2024 7:16am>60>=60 mL/min/1.73m 2Estimated GFR ()September 12, 2025 7:00amNove2024 7:00am>60>=60 mL/min/1.73m 2Calcium LevelOctober 2024 6:17am8.8 mg/dL8.5-10.1Lymphocytes # (Auto)August 22, 2025 6:17amOctober 2024 6:17am2.7 10 3/uL1.2-3.8 Estimated GFR (Non- AmericanAugust 27, 2025 8:06amNovemb2024 8:02vz89Tprsp low normal>=60 mL/min/1.73m 2Estimated GFR (Non- September 06, 2025 7:16amNovember 2024 7:19xk54Gazmz low normal>=60 mL/min/1.73m 2Estimated GFR (Non- AmericanNov2024 7:00am September 12, 2025 7:66ix30Usfgo low normal>=60 mL/min/1.73m 2Chloride Level August 22, 2025 6:11zk471 mmol/U07-606Mppdxuzpgvp (%) (Auto)August 22, 2025 6:17amOctober 2024 6:17am29.6 %20.5-60.0Glucose LevelNovverde valley medical center 2024 8:06amNovemb2024 8:06am95 mg/nM00-504Tuveclm LevelNovember 2024 7:16amNovember 2024 7:16am99 mg/uG47-926Uhiypbd LevelNovember 2024 7:00amNovember 2024 7:00am96 mg/qN99-763Kzpqlw Dioxide LevelOctober 2024 6:17am26.8 mmol/L21.0-32.0Mean Corpuscular HemoglobinOctober 2024 6:17amOctober 2024 6:17am30.8 pg26.7-34.0Potassium LevelNovember 2024 8:06amNovember 2024 8:06am3.4 mmol/LBelow low normal3.5-5.1Potassium LevelNovember 2024 7:16amNovember 2024 7:16am3.4 mmol/LBelow low normal3.5-5.1Potassium LevelNovverde valley medical center 2024 7:00amNovember 2024 7:00am 3.6 mmol/L3.5-5.1CreatinineOctober 2024 6:17am1.18 mg/dLAbove high normal 0.55-1.02Mean Corpuscular Hemoglobin ConcentOctober 2024 6:17amOctober 2024 6:17am34.8 g/dL29.9-35.2Sodium LevelNovverde valley medical center 2024 8:06amNovember 2024 8:39qm052 mmol/G293-820Xitgsn LevelNovverde valley medical center 2024 7:16amNovember 2024 7:96vk150 mmol/X743-309Frglcm LevelNovverde valley medical center 2024 7:00amNovember 2024 7:66oh564 mmol/T118-885Slfcgobpz GFR ()August 22, 2025 6:77fc76Lgoad low normal>=60 mL/min/1.73m 2Mean Corpuscular VolumeOctober 2024 6:17amOctober 2024 6:17am88.4 fL81.0-99.0Estimated GFR (Non- AmericanOctober 2024 6:05hm28Elrbr low normal>=60 mL/min/1.73m 2 Monocytes # (Auto)August 22, 2025 6:17amOctober 2024 6:17am0.7 10 3/uL 0.3-0.8GlobulinOctober 2024 6:17am3.6 g/dLMonocytes (%) (Auto)August 22, 2025 6:17amOctober 2024 6:17am7.6 %1.7-12.0Glucose LevelOctober 2024 6:19it195 mg/cY73-775Bsau Platelet VolumeOctober 2024 6:17am August 22, 2025 6:17am9.5 fL9.5-13.5Potassium LevelOctober 2024 6:17am 2.9 mmol/LBelow lower panic limits3.5-5.1RESULTS CALLED TO HALIE MARCIAL LPN at 1052Neutrophils # (Auto)August 22, 2025 6:17amOctober 2024 6:17am5.3 10 3/uL1.4-6.5Sodium LevelOctober 2024 6:68mo495 mmol/D614-651Ewstycevjfw (%) (Auto)August 22, 2025 6:17amOctober 2024 6:17am58.7 %43.0-75.0Total BilirubinOctober 2024 6:17am0.5 mg/dL0.2-1.0Platelet CountOctober 2024 6:17amOctober 2024 6:91hy615 10 3/wG737-132Pbrht ProteinOctober 2024 6:17am7.0 g/dL6.4-8.2Red Blood CountOctober 2024 6:17amOctober 2024 6:17am4.55 10 6/uL4.20-5.40Red Cell Distribution WidthOctober 2024 6:17amOctober 2024 6:17am12.3 %11.0-15.0Corrected White Blood CountOctober 2024 6:17amOctober 2024 6:17am9.0 10 3/uL4.0-11.0 Vital Signs Vital Reading Result Reference Range Collection Date/Time Height 64 [in_i] September 11, 2025 2:57qsGpsbol81.03 kgNov2024 2:03pmHeart Rate65 /kfx22-738MdhiufonSeptember 11, 2025 2:03pmOxygen saturation by Pulse srhicpbn46 % 95-100September 11, 2025 2:03pmBP Wnkewqhg525 mm[Hg]100-140September 11, 2025 2:03pmBP Qmvlxkjaw07 mm[Hg]60-100Nov2024 2:03pmBMI (Body Mass Index) 37.0 kg/u8XhowdnbxSeptember 11, 2025 2:62yzMywmwg80 [in_i]September 14, 2025 10:50am Foemsi06.16 kgSeptember 14, 2025 10:50amHeart Rate77 /mtt04-752QjvubziySeptember 14, 2025 10:50amBP Qiwhpmef59 mm[Hg]100-140September 14, 2025 10:50amBP Szmihbjxu66 mm[Hg]60-100September 14, 2025 10:50amBMI (Body Mass Index)36.3 kg/w5BqokgxznSeptember 14, 2025 10:50am Advance Directives Advance Directive Response Recorded Date/ Time Advance Directives No August 9:55am Insurance Providers Guarantor Elif Fox Address [address] [facility] [address]Rcnjcsl Info.Home Phone: Coverage Status Update:2025 Payer Group Member ID Coverage Type Subscriber Relationship to Subscriber Effective Date Expiration Date Ousmane ADAMS [id number] A Watson Id: [id number] [address] [facility] [address] Home Phone: SelfSelf Pay Id: [id number] Encounters Encounter Location(s) Arrival/Admit Date Discharge/Departure Date Discharge/Departure Disposition Provider(s) Non-patient / Non-visit -[facility] O ctober 2024 7:17am Agnes Fofana-patient / Agq-dlewb-Znafb [facility] Karinoveyuan 2024 8:06amAnder Dominique-patient / Jqt-csciy-Gjnje [facility] Karinovembsania 2024 7:16amEhab A EltahawyDeparted Physician/Provider Office [facility] [place], 20[place] 2:00pm September 11, 2025 2:35pmDischarged to home care or self care (routine discharge)Kmaryn Fleming-patient / Trk-gixce-Vrnbk [facility] Brigette 2024 7:00amEhab A EltahawyDeparted Physician/Provider [facility] 10:35amNovember 2024 11:17amDischarged to home care or self care (routine discharge)Pat Dominique MD Recent Diagnosis Onset Date Admit Date Abnormal brain MRI Unknown August 2:00pm CVD (cerebrovascular disease) Unknown No vember 2024 2:00pm Vertigo Unknown September 11, 025 2:00pm Word finding difficulty Unknown September 11, 2025 2:00pm Colon cancer screening Unknown September 14, 2025 10:35am Family history of polycystic kidney disease Unkn own September 14, 2025 10:35am Screening mammogram for breast cancer Unknown September 14, 2025 10:35am Stage 3a chronic kidney disease Unknown September 14, 2025 10:35am Assessments Diagnosis Onset Date Resolution Status Admit Date Abnormal brain MRI acuteNov2024 2:00pmCVD (cerebrovascular disease)acuteSeptember 11, 2025 2:00pmVertigoacuteSeptember 11, 2025 2:00pmWord finding difficultyacute September 11, 2025 2:00pmColon cancer screeningacuteSeptember 14, 2025 10:35am Family history of polycystic kidney diseaseacuteSeptember 14, 2025 10:35am Screening mammogram for breast canceracuteSeptember 14, 2025 10:35amStage 3a chronic kidney diseaseacuteSeptember 14, 2025 10:35am Plan of Treatment [facility] 2:61vh79-pial-qnz female who comes in with multiple issues. Most recent concern is she has had two spells where she could not get words out and lasted about 5-15 minutes. First time was May 2024 and other spell a few months ago. Etiology of this is unclear. She does have an MRI of the brain that showed some white matter changes that are stable no progression. There was no signs of acute stroke. She has not missed any doses of her Plavix and aspirin. She did have an echocardiogram and was found to have a PFO. She had a stress test that was unremarkable. She had an event monitor that we do not have the results of that she was told it was normal. She had some left pupillary anisocoria with [...] with what appears to be small vessel changes and repeat is stable with not changes. Nothing that would cause anisocoria. MRI prior was 02/2024 lesions most likely to continue to be consistent with microvascular ischemic changes. . Her muscle tension headaches and rare migraines have improved with the deep piercing. She never started the amitriptyline and has not needed it. Her dizziness has resolved as she has not had a spell in many months. It was a feeling of swaying denied true vertigo sensation. She feels this is more of being sideways . Antivert was not helpful and kept her awake. This is stable and has not returned. She is getting about 7-8 hours of sleep and is rested during the day. Her insomnia is much better. Tremors remain stable and not problematic. She can get some vasovagual presyncope when she laughs hard. . She sees Dr. aMrtel for cardio. PFO was better on last echo in May 2024. It is not at surgical intervention size at this time, is being monitored closely. . Review and summary of old records: [...] did reveal PFO and was sent to machine heel seat fitter between visits. . . . Plan: Cardiac workup was reviewed and other than the PFO nothing new was found Continue the Plavix and aspirin as per cardiology Continue with cardiology workup as needed Repeat MRI of the brain is stable with nonprogressing specific white matter changes monitor tremor sensation Monitor for any further spells and call in if so and will order EEG The patient was counseled on proper sleep hygiene and adequate hours of sleep. whole foods diet, clean living, proper sleep and exercise. This was discussed with the patient, all questions were answered and they agreed with the treatment plan. The patient is to call with any worsening of the condition or new symptoms. Future Tests Future scheduled test information is unavailable Pending Tests Test Name Ordered Date Scheduled Date US renal BI September 14, 2025 11:06am MM screening mammo BI w/CADNov2024 11:09am Future Visits Future appointment information is unavailable Future Procedures Procedure Name Ordered Date Scheduled Date [facility] Cologuard September 14, 2025 11:10am Future Medications Future medication information is unavailable Patient Instructions Patient instructions are unavailable Hospital Discharge Instructions Ambulatory Orders* Referral to Nephrology Time Frame: 09/14/25, Location: None Selected
--- OUTSIDE RECORDS SUMMARY | 2025-09-19 06:45 | XMS_ITS | CCD ---
Author Organization [facility] Care Team Providers Care Certified Nuclear Medicine Technologist Name Role Phone ALESSANDRO LIN Admitting Unavailable ALESSANDRO LIN Attending Unavailable PAT HUSTON Referring Unavailable ROBEL, PAT Primary Care Unavailable Pat Huston Unavailable ROBEL, DR PAT Kumari Admitting Unavailable HUSTON, DR PAT Kumari Attending Unavailable HUSTON, DR PAT Kumari Primary Care Unavailable CLARENDON, DR NILESH Foy Consulting Unavailable HUSTON, DR [...] PAT Kumari Primary Care Unavailable ELTAHAWY, DR RBOOKS Consulting Unavailable ELTAHAWY, DR BROOKS Admitting Unavailable [...] Unavailable MD Pat Huston Primary Care Provider [phone] MD Pat Huston Attending Provider [phone] Pat Huston Admitting Unavailable Pat Huston Primary Care Unavailable Pat Huston Attending Unavailable Kevon Samuel Admitting Unavailab Kevon Morejon Attending Unavailab Pat Mcgovern Primary Care Unavailable Pat Huston MD Primary Care Provider [phone] Addiedusty PARKS Jl Unavailable HARLAN NIÑO Attending Unavailable HARLAN NIÑO Attending Unavailable Pat Huston MD Primary Care Provider Harlan Niño APRN Attending Provider Pat Huston MD Primary Care Provider [phone] Harlan Niño NP Unavailable [phone] Addie PARKS Jl Unavailable VIDHI ANDERSON Attending Unavailable Allergies Allergy ClassificationReported Allergen(s)Allergy TypeDate of OnsetReaction(s) Facility (2 sources)Acetaminophen / oxyCODONEDrug Zrcfiar80-22-5019Fdv [facility] Repository (8 sources)levoFLOXacinDrug Thpokxj61-18-7610vofxgXpiAultman Hospital Repository (2 sources)MeperidineDrug Qrbhctp28-17-6830Xhj [facility] Repository (2 sources)Darvocet-N 100Drug allergy (disorder)46-48-4933Zco [facility] Repository (6 sources)Acetaminophen / oxyCODONEDrug AllergyUnkCYP DesignCoulee Medical Center [employer] Other (6 sources)Acetaminophen / PropoxypheneDrug AllergyUnkCYP DesignPemiscot Memorial Health Systems YES.TAP Other (10 sources)Meperidine; Translations: [MEPERIDINE]Drug Zmvfjov27-02-1236EexdidzMain Campus Medical Center (8 sources)SimvastatinDrug Cpupsdl27-17-3561QsrlvdnWexner Medical Center (1 source)Tylenol-Codeine #3Drug allergy (disorder)[facility] Repository (5 sources)Allergies ReconciledPropensity to adverse reactionsUnknownNorth YES.TAP Other (5 sources)patient allergy list reviewed by nurse or physiciaPropensity to adverse qmwbphyoa17-27-9445Gwjqwhf:[facility] YES.TAP Other (5 sources)Darvocet A500 *ANALGESICS - OPIOID*Propensity to adverse reactions 61-67-9280OsfbjwfOppxy YES.TAP Other (2 sources)Acetaminophen; Translations: [acetaminophen]Drug Kmbaind33-38-7584 [facility] (5 sources)levoFLOXacin; Translations: [levofloxacin]Drug Qtveenq40-40-7448EhayeMercy Health St. Rita'S Medical Center (4 sources)oxyCODONE; Translations: [oxycodone]Drug Hsrjurf45-12-5828UokuzuhiOhio State East Hospital (4 sources)Propoxyphene; Translations: [propoxyphene]Drug Hfjiasp41-76-2409 [facility] (1 source)MeperidineDrug Kqrmvxs77-17-7193DupvvuhdhLakehealth [facility] Repository (2 sources)Darvocet A500 *ANALGESICS - OPAllergy to emllwvoov19-23-9824VmewjMercy Health St. Rita'S Medical CenterComment on above:Free Text Allergy: Darvocet A500 *ANALGESICS - OPIOID*; Onset Date: 10/27/2016 (5 sources)Acetaminophen / oxyCODONE; Translations: [OXYCODONE-ACETAMINOPHEN] Drug Hlrbzlt14-01-2599PA intoleranceSaint John's Health System (4 sources)MeperidineDrug Dtryppv90-94-5256RY intoleranceSaint John's Health System (1 source)PROPOXYPHENE N-ACETAMINOPHEN; Translations: [PROPOXYPHENE N-ACETAMINOPHEN]Propensity to adverse reactions to drug (disorder)12-15-2013 [facility] Repository Medications Current Medications MedicationDrug Class(es)DatesSig (Normalized)Sig (Original)aspirin 81 mg oral tablet (1 source)Platelet Aggregation Inhibitor, Nonsteroidal Anti-inflammatory Drug Start: 35-03-5855gosz 1 tablet by mouth once dailyAspirin 81 mg tablet Active 81 MG PO Daily May 24, 2025 12:00am Complies with drug mzjgebf92 hr buPROPion hydrochloride 300 mg extended release oral tablet (20 sources)AminoketoneStart: 98-07-0493knqx 1 tablet by mouth once daily in the morningBupropion Hcl (Wellbutrin Xl) 300 mg tablet extended release 24 hr Active 300 MG PO Every morning May 24, 2025 12:00am Complies with drug therapyStart: 08-23-2024 End: 52-22-7776ddxu 1 tablet by mouth twice dailyBupropion Hcl 100 mg tablet Discontinued 100 MG PO Twice daily August 23, 2024 12:00am May 24, 2025 4:19pmStart: 22-62-9964yjETDAzjq HCl 100MG BuPROPion HCl( 100MG Oral 2 times daily ) Active -Hx Entry Oral 2 times daily for 0 *Pick strength-form from 72798.com for eRX* Jun, Activeclopidogrel 75 mg oral tablet (4 sources)P2Y12 Platelet InhibitorStart: 07-44-7996hkrj 1 tablet by mouth once dailyClopidogrel (Plavix) 75 mg tablet Active 75 MG PO Daily May 24, 2025 12:00am Complies with drug therapyStart: 12-01-2023 End: 92-94-0251jgen 1 tablet by mouth once dailyclopidogrel (Plavix) 75 MG tablet Take 75 mg by mouth Daily 12/01/2023 11/30/2024 Qszmge82 hr dilTIAZem hydrochloride 240 mg extended release oral capsule (20 sources)Calcium Channel BlockerStart: 97-27-5357pjqr 1 mg by mouth every twenty-four hoursDiltiazem Hcl (Cartia Xt) 240 mg capsule,extended release 24hr Active MG PO May 24, 2025 12:00amComplies with drug therapyStart: 08-23-2024 End: 35-39-9282qxzq 1 capsule by mouth once daily, then take 1 capsule by mouth every twenty-four hoursDiltiazem Hcl (Cardizem Cd) 240 mg capsule,extended release 24hr Discontinued 240 MG PO Daily August 23, 2024 12:00am August 23, 2024 11:19amStart: 08-23-2024 End: 62-24-3538lozs 2 tablets by mouth once dailyDiltiazem Hcl 120 mg tablet Discontinued 120 MG PO Daily August 23, 2024 11:19am May 2454:19pm FreeTextSi tablets Orally daily; Note: Source Status: Takingtotal of 240 mg; Provider: Robel Stewart ( )Start: 08-23-2024 End: 29-50-7563cngn 2 tablets by mouth once dailyDiltiazem Hcl Discontinued 2 TAB PO Daily August 23, 2024 12:00am August 23, 2024 11:20am FreeTextSi tablets Orally daily; Note: Source Status: Takingtotal of 240 mg; Provider: Robel Stewart ( )Start: 12-01-2023 End: 43-27-9939hfnr 1 capsule by mouth in the morning, then take 1 capsule by mouth every twenty-four hoursdilTIAZem CD (Cardizem CD) 120 MG 24 hr capsule Take 120 mg by mouth in the morning. 12/01/2023 ActiveStart: 18-46-1480htwz 240 mg by mouth once dailyCardizem CD 240MG Cardizem CD( 240MG Oral daily ) Active - Hx Entry Oral daily for 0 *Pick strength-form from 72798[employer]com for eRX* Jun, Activetake 2 tablets by mouth every twenty-four hoursCardizem 120 MG 2 tablets Orally daily total of 240 mg ActiveDULoxetine 30 mg delayed release oral capsule (20 sources)Serotonin and Norepinephrine Reuptake InhibitorStart: 08-23-2024 End: 04-08-4919mmvd 1 capsule by mouth once dailyDuloxetine (Cymbalta) 30 mg capsule,delayed release(DR/EC) Active 30 MG PO Daily August 232:00am Complies with drug therapyhydroCHLOROthiazide 25 mg oral tablet (5 sources)Thiazide DiureticStart: 12-01-2023 End: 67-23-2084igqd 1 tablet by mouth once dailyHydrochlorothiazide 25 mg tablet Active 25 MG PO Daily May 24, 2025 12:00am Complies with drug therapy metoprolol tartrate 25 mg oral tablet (5 sources)beta-Adrenergic BlockerStart: 12-01-2023 End: 94-66-0419slvk 1 tablet by mouth once dailyMetoprolol Tartrate 25 mg tablet Active 25 MG PO Daily May 24, 2025 12:00am Complies with drug therapy nitroglycerin 0.4 mg sublingual tablet (5 sources)Nitrate VasodilatorStart: 54-40-7128qkyg 1 tablet under the tongue onceNitroglycerin 0.4 mg tablet, sublingual Active 0.4 MG SUBLINGUAL Once May 24, 2025 12:00am Complies with drug therapynitroglycerin (Nitrostat) 0.[address] 0.4 mg under the tongue every 5 (five) minutes if needed for chest pain Activerosuvastatin calcium 40 mg oral tablet (5 sources)HMG-CoA Reductase InhibitorStart: 12-01-2023 End: 98-45-8419yhrg 1 tablet by mouth once dailyRosuvastatin 40 mg tablet Active 40 MG PO Daily May 24, 2025 12:00am Complies with drug therapy Completed/Discontinued Medications MedicationDrug Class(es)DatesSig (Normalized)Sig (Original)citalopram 20 mg oral tablet (7 sources)Serotonin Reuptake InhibitorStart: 08-23-2024 End: 65-83-9642Jubgoszrud 20 mg tablet Discontinued MG PO August 23, 2024 12:00am May 24, 2025 4:19pm FreeTextSig: Citalopram Hydrobromide( 20MG Oral 2 times daily ) Active -Hx Entry Oral 2 times daily; Note:Source Status: Taking*Pick strength-form from 72798.com for eRX*; Provider: Robel Stewart ( )Start: 61-82-6371Rraftnogwr Hydrobromide 20MG Citalopram Hydrobromide( 20MG Oral 2 times daily ) Active -Hx Entry Oral 2 times daily for 0 *Pick strength-form from 72798.com for eRX* Jun, Mfxxuo45 hr isosorbide mononitrate 60 mg extended release oral tablet (19 sources)Nitrate VasodilatorStart: 08-23-2024 End: 66-79-6685zrel 1 tablet by mouth once daily in the morningIsosorbide Mononitrate 60 mg tablet extended release 24 hr Discontinued 1 TAB PO Daily August 23, 2024 12:00am August 23, 2024 11:20am FreeTextSi tablet in the morning Orally Once a day; Note: Source Status: Ywbfxb886 mg; Provider: Robel Stewart ( )Start: 12-01-2023 End: 04-30-9880dfip 1 tablet by mouth in the morning, then take 1 tablet by mouth every twenty-four hoursisosorbide mononitrate ER (Imdur) 120 MG 24 hr tablet Take 120 mg by mouth in the morning. 12/01/2023 ActiveStart: 06-26-2022 Imdur 120MG Imdur( 120MG Oral ) Active -Hx Entry Oral for 0 *Reorder from [facility] for eRx and Interaction Alerts* Jun, Activetake 1 tablet by mouth once daily in the morningImdur 60 MG 1 tablet in the morning Orally Once a day 120 mg Active Problems Active Problems Problem ClassificationProblemDateDocumented DateEpisodic/ChronicAnxiety disorders (6 sources)Generalized anxiety disorder; Translations: [Generalized anxiety disorder]ChronicConduction disorders (5 sources)Pre-excitation syndrome; 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]Onset: 37-50-6897GcehqkfEuhcptvfv of lipid metabolism (9 sources)Hyperlipidemia, unspecified; Translations: [Hyperlipidemia]Onset: 83-63-9185BihcxmzIgexg of unknown origin (5 sources)Fever, unspecified; Translations: [Fever]EpisodicHeadache; including migraine (6 sources)Tension-type headache; Translations: [Tension-type headache, unspecified, not intractable]Onset: 455916-69-2777EblnhgjNitnaiawx disorders (10 sources)Excessive and frequent menstruation with regular cycle; Translations: [Intermenstrual bleeding - irregular] Resolved: 62-46-0666BoqhzdpIifbjrhxmckme mental health disorders (6 sources)Primary insomnia; Translations: [Primary insomnia]Onset: 02-28-2024 97-43-0119HavyqxxMief disorders (6 sources)Moderate recurrent major depression; Translations: [...] (4 sources)Cerebrovascular disease; Translations: [Cerebrovascular disease, unspecified]Onset: 126616-42-7413IbhghcyPkjed connective tissue disease (1 source)Pain in right hand; Translations: [Pain in right hand]EpisodicOther connective tissue disease (4 sources)Pain in right hand; Translations: [Pain in right hand]EpisodicOther eye disorders (5 sources)Dilated pupil; 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]ChronicOther eye disorders (6 sources)Anisocoria; 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]Onset: 593352-73-9108 ChronicOther non-traumatic joint disorders (1 source)Pain in left hip; Translations: [Pain in left hip]EpisodicOther non- traumatic joint disorders (4 sources)Arthralgia of the pelvic region and thigh; Translations: [Pain in left hip]EpisodicOther non-traumatic joint disorders (2 sources)Hip pain; Translations: [Pain in right hip]38-65-1665RmwtuqxoGybvl non-traumatic joint disorders (1 source)Pain in right hip; Translations: [Pain in joint, pelvic region and thigh]38-24-8910PmsbtvpvFixzv nutritional; endocrine; and metabolic disorders (1 source)Body mass index (BMI) 36.0-36.9, adult; Translations: [Body mass index (BMI) 36.0-36.9, adult]ChronicOther nutritional; endocrine; and metabolic disorders (5 sources)Obese class I; Translations: [Body mass index 32.0-32.9, adult]Onset: 16-30-7904AvexnhmCygiy nutritional; endocrine; and metabolic disorders (4 sources)Obese class II; Translations: [Body mass index (BMI) 36.0-36.9, adult]ChronicOther screening for suspected conditions (not mental disorders or infectious disease) (10 sources)Abnormal findings on diagnostic imaging of other specified body structures; Translations: [MRI scanabnormal]Onset: 29-23-4643VtfzmksHkieg screening for suspected conditions (not mental disorders or infectious disease) (20 sources)Encounter for screening mammogram for malignant neoplasm of breast; Translations: [Urine test negative]Onset: 05-77-4023BwccyeyvHyfjy skin disorders (5 sources)Acne vulgaris; Translations: [Acne [...] pain; Translations: [Pelvic and perineal pain] Resolved: 86-49-7621YoojxlrpCffxcjli reactions (5 sources)Unspecified contact dermatitis due to other agents; Translations: [Contact dermatitis]Onset: 70-20-5540DfmkzznqDsxlcfhcgo associated with dizziness or vertigo (6 sources)Vertigo; Translations: [Dizziness and giddiness]Onset: 02-28-2024 83-26-8518CxjbvtzuRivulqnj; including migraine (4 sources)Tension-type headache; Translations: [Tension-type headache, unspecified, intractable]Onset: 571541-31-9400PvyvhomoNnarnyx and fatigue (1 source)Other fatigue; Translations: [OTHER FATIGUE]Onset: 67-21-1820Mcpwquqx Mycoses (5 sources)Candidiasis, unspecified; Translations: [Candidiasis]Onset: 96-59-0134FrgodogeTounguzgjwd chest pain (18 sources)Non-cardiac chest pain; Translations: [Other chest pain]Onset: 26-52-7486AilltincIxjgk circulatory disease (4 sources)Other specified symptoms and signs involving the circulatory and respiratory systems; Translations:[OTH SPEC SX SIGNS INVLV CIRC RS]Onset: 47-57-5483GyhbvuoiVherc complications of (1 source)Supervision of high risk , unspecified, unspecified trimester; Translations: [Supervision of high risk , unspecified, unspecified trimester]Onset: 60-71-9547EhpoydgzVswzz complications of (4 sources)High risk ; Translations: [Supervision of high risk , unspecified, unspecified trimester]Onset: 35-42-6693TvwfjschHygho eye disorders (4 sources)Fundoscopy abnormal; Translations: [Unspecified disorder of eye and adnexa]Onset: 836366-25-8667WvpkznzaJrsio liver diseases (4 sources)Elevated levels of transaminase & lactic acid dehydrogenase; Translations: [Nonspecific elevation of levels of transaminase or lactic acid dehydrogenase (LDH)]Onset: 02-74-2966NmrgxctkVktqp lower respiratory disease (2 sources)Shortness of breath; Translations: [Shortness of breath]Onset: 06-55-2344OvochgleYextk nervous system disorders (6 sources)Tremor; Translations: [Tremor, unspecified]Onset: 02-28-2024 50-19-8536ExankgasHsxlo non-traumatic joint disorders (5 sources)Shoulder joint pain; Translations: [Pain in right shoulder]Onset: 72-01-6139VrilsqgvQwqru and delivery including normal (1 source)Encounter for routine follow-up; Translations: [Encounter for routine follow-up]Onset: 11-35-0594XgekesjlDkcsxcbtp; thrombophlebitis and thromboembolism (5 sources)Embolism from thrombosis of vein of distal lower extremity; Translations: [Acute venous embolism and thrombosis of unspecified deep vessels of lower extremity]Onset: 00-22-8326QuunqdnwIchvukuwxyf; intervertebral disc disorders; other back problems (5 sources)Cervical disc disorder with radiculopathy; Translations: [Cervical disc disorder with radiculopathy, cervicothoracic region]Onset: 06-20-2018 EpisodicThyroid disorders (5 sources)Disorder of thyroid, unspecified; Translations: [Disorder of thyroid gland]Onset: 20-57-8280BeoitoxbJsphqjflqhoc (5 sources)Surveillance of intrauterine device contraception done; Translations: [Surveillance of previously prescribed intrauterine contraceptive device]Onset: 63-77-2312Swmkybsjtsuy (5 sources)Encounter for insertion or removal of intrauterine contraceptive device; Translations: [Encounter for insertion or removal of intrauterine contraceptive device]Onset: 09-05-2009 Results Test NameValueInterpretationReference NuxhtRbgbcofh10su 33-42-502884Pvjvbsn had labs drawn 08/22 for routine wellness. Her K was very low so she was advised to go to the ED. She said the ED doc gave her 4 days worth of potassium chloride. It was checked again today and results are scanned into sr. media manager for your review. Did you want to give her more potassium? It's still low. Please advise. Thanks.[facility]36on Regarding stress test result from 05/28/2025: Vidhi Anderson MD to Me (Selected Message) EE 06/05/25 7:55 AM Please reassure her stress test is normal Thanks Patient made aware.[facility] HospitalOrders Onlyon 74-09-0850Awycgr [id number] Elvia Fox Alexy 1975 F Date Provider Department Center 06/04/2025 [id number], HISTORICAL BEATA [facility] Family History Problem Relation Age of Onset Supraventricular tachycardia Mother Heart disease Father Supraventricular tachycardia Sister Heart disease Paternal Grandmother Heart disease Paternal Grandfather Family Status - Relation Status Age at Mother Father Sister Paternal Grandmother Paternal GrandfatherNHolzer Medical Center – JacksonOffice Visiton 98-01-4733Pfgwrj-up [id number] Leslie Foxecca Alexy 1975 F Date Provider Department Center 05/03/2025 271-VIDHI ANDERSON Family History Problem Relation Age of Onset Supraventricular tachycardia Mother Heart disease Father Supraventricular tachycardia Sister Heart disease Paternal Grandmother Heart disease Paternal Grandfather Family Status - Relation Status Age at Mother Father Sister Paternal Grandmother Paternal Grandfather Level of Service:34009 [place] OFFICE/OUTPATIENT ESTABLISHED MOD MDM [facility]MRI [facility]/BRAIN WO/W CONTRon 31-15-6423Rxi[address] [address] Magnetic Resonance Report Signed Patient: ELVIA FOX MR#: [id number] : 1975 Acct:[id number] Age/Sex: 48 / F ADM Date: 03/16/24 Loc: MRI Attending Dr: Harlan Niño NP Ordering Physician: Harlan Niño NP Date of Service: 03/16/24 Procedure(s): MR head/brain wo/w con Accession Number(s): [id number] cc: Pat Huston M.D.; Harlan Niño NP [place] [address] Patient Name: ELVIA FOX MRN: [facility]:[id number] date: 1975 Sex: F Assigned Patient Location: MRI Current Patient Location: MRI Accession/Order Number: [id number] Exam Date: 03/16/2024 16:00 Report Date: 03/16/2024 [...] on T2 and FLAIR images in the katrhyn and left frontal and parietal salazar radiata [...] M.D. Signed By: 03/16/241705 DD/ 03 TD/TT: Brewery Representative:TBHRadiology, Radiologist, - 03/16/2024 [place] [address] Magnetic Resonance Report Signed Patient: ELVIA FOX MR#: [id number] : 1975 Acct:[id number] Age/Sex: 48 / F ADM Date: 03/16/24 Loc: MRI Attending Dr: Harlan Niño NP Ordering Physician: Harlan Niño NP Date of Service: 03/16/24 Procedure(s): MR head/brain wo/w con Accession Number(s): [id number] cc: Pat Huston M.D.; Harlan Niño NP [place] [address] Patient Name: ELVIA FOX MRN: [facility]:[id number] date: 1975 Sex: F Assigned Patient Location: MRI Current Patient Location: MRI Accession/Order Number: [id number] Exam Date: 03/16/2024 16:00 Report Date: 03/16/2024 [...] M.D. Signed By: 03/16/241705 DD/ 03 TD/TT: Brewery Representative: [facility] SystemRadiology Study observation (narrative)[facility] SystemI HEAD/BRAIN WO/W CONTROrdered By: Radiologist Radiology on 37-91-5917MOJQ Vputi Work Phone: MR breast BI wo/w con CADon 09-23-0710VM breast BI wo/w con [facility] [place] [address] MRI Report Signed Patient: Elvia Fox MR#: [id number] : 1975 Acct:[id number] Age/Sex: 48 / F ADM Date: 09/07/23 Loc: Room: Type: [facility] Attending Dr: Pat Huston MD Copies [...] All imaged data was reviewed using the TraktoPRO system. The postcontrast images were subtracted and [...] Waite Jr., D.OLinda09/07/2023 11:47 AM Dictation Location: [place] [address] Transcribed By: [facility] 09/07/23 1147 Dictated By: Bunny Waite Jr, DO 09/07/23 1138 Signed By: 09/07/23 1147[facility] HospitalMRI BRAIN WO W CONon 80-81-8184UCJ BRAIN WO W CONEXAMINATION: MRI BRAIN WO [...] Electronically authenticated by: EDILSON JOHN Date: 2023-02-16 10:16[facility] HospitalLIPID PROFILEon 78-15-9636KZHH-HDL RATIO NORMSEE [facility] HospitalComment on above:Result Comment: 3.3 - 4.4 LOW RISK 4.4 - 7.1 AVERAGE RISK 7.1 - 11.0 MODERATE RISK >11.0 HIGH RISKPerformed By: #### CMP, TSH, LIPID #### [facility] [address] [place] [address] [address] David ZapataCholesterol [Mass/Vol]120 mg/dLNormal<=200[facility] Comment on above:Performed By: #### CMP, TSH, LIPID #### [facility] [address] [place] [address] Dr. David ZapataCholesterol in HDL [Mass/Vol]54 mg/rUFxtbuy12-85TgbMercy Health St. Joseph Warren HospitalComment on above:Performed By: #### CMP, TSH, LIPID #### [facility] [address] [place] [address] Dr. David ZapataCholesterol in LDL [Mass/Vol]45.6 mg/dLMercy Health West HospitalComment on above:Performed By: #### CMP, TSH, LIPID #### [facility] [address] [place] [address] Dr. David Suarezestermaciej.total/Cholesterol in HDL [Mass ratio]2.2 {ratio} NormalMercy Health St. Joseph Warren HospitalComment on above:Performed By: #### CMP, TSH, LIPID #### [facility] [address] [place] [address] Dr. David ZapataHDL NORMAL> or = 60 mg/dl - LOW CARDIOVASCULAR RISK <40 mg/dl - HIGH CARDIOVASCULAR RISKMercy Health West HospitalComment on above:Performed By: #### CMP, TSH, LIPID #### [facility] [address] [place] [address] Dr. David ZapaatLDL CALC NORMALSEE [facility] HospitalComment on above:Result Comment: <100 mg/dl OPTIMAL 100 - 129 mg/dl NEAR OR ABOVE OPTIMAL 130 - 159 mg/dl BORDERLINE HIGH 160 - 189 mg/dl HIGH >190 mg/dl VERY HIGH Performed By: #### CMP, TSH, LIPID #### [facility] [address] [place] [address] Dr. David ZapataTriglyceride [Mass/Vol]102 mg/dLNormal<=150[facility] Comment on above:Performed By: #### CMP, TSH, LIPID #### [facility] [address] [place] [address] Dr. David ZapataVLDL CALC20.4 mg/dLNormalThe [facility] ClinicComment on above: Performed By: #### CMP, TSH, LIPID #### [facility] [address] [place] [address] Dr. David Cheatham PROFILEon 18-06-9784Gbvuwpn [Mass/Vol]3.4 g/dLNormal3.4-5.0 [facility] ClinicComment on above:Performed By: #### CMP, TSH, LIPID #### [facility] [address] [place] [address] Dr. David ZapataAlbumin/Globulin [Mass ratio]1.0 {ratio}NormalThe [facility] ClinicComment on above:Performed By: #### CMP, TSH, LIPID #### [facility] [address] [place] [address] Dr. David Crockett [Catalytic activity/Vol]51 U/VAnemja15-017Hrd [facility] ClinicComment on above:Performed By: #### CMP, TSH, LIPID #### [facility] [address] [place] [address] Dr. David Szymanski [Catalytic activity/Vol]32 U/OCmseuu31-66Tsm [facility] on above:Performed By: #### CMP, TSH, LIPID #### [facility] [address] [place] [address] Dr. David Gamino [Catalytic activity/Vol]18 U/EPpitzn04-12Ypg [facility] ClinicComment on above:Performed By: #### CMP, TSH, LIPID #### [facility] [address] [place], [place] [id number] Dr. David Xie, CONJUGATED0.1 mg/dLNormal0.0-0.2[facility] Comment on above:Performed By: #### CMP, TSH, LIPID #### [facility] Laboratory [address] [place] [address] Dr. David Mcknightirubin [Mass/Vol]0.4 mg/dLNormal0.2-1.0[facility] Comment on above:Performed By: #### CMP, TSH, LIPID #### [facility] [address] [place] [address] Dr. David ZapataGlobulin (S) [Mass/Vol]3.5 g/dLNormalThe [facility] ClinicComment on above:Performed By: #### CMP, TSH, LIPID #### [facility] [address] [place] [address] Dr. David ZapataProtein [Mass/Vol]6.9 g/dLNormal6.4-8.2[facility] Comment on above:Performed By: #### CMP, TSH, LIPID #### [facility] [address] [place] [address] Dr. David Kellogg AUTO DIFFon [id number] #0.0 103/ulNormal0.0-0.1[facility] HospitalComment on above:Performed By: #### CBC #### [facility] [address] [place] [address] Dr. David ZapataBasophils/100 WBC (Bld)0.4 %Normal0.2-2.0[facility] Comment on above:Performed By: #### CBC #### [facility] [address] [place] [address] Dr. David Henry #0.3 103/ulNormal0.0-0.7The [facility] ClinicComment on above: Performed By: #### CBC #### [facility] [address] [place] [address] Dr. David Chavisosinophils/100 WBC (Bld)3.4 %Normal0.9-7.0The [facility] Comment on above:Performed By: #### CBC #### [facility] [address] [place] [address] Dr. David Chavisrythrocyte distribution width (RBC) [Ratio]12.0 %Qzzjdt81.0-15.0 The [facility] ClinicComment on above:Performed By: #### CBC #### [facility] [address] [place] [address] Dr. David ZapataHematocrit (Bld) [Volume fraction]44.2 %Tohaih67.0-48.0The [facility] ClinicComment on above:Performed By: #### CBC #### [facility] [address] [place] [address] Dr. David ZapataHemoglobin (Bld) [Mass/Vol]14.0 g/kCRdyjzk32.0-16.0[facility] HospitalComment on above:Performed By: #### CBC #### [facility] [address] [place] [address] Dr. David Rubio #0.04 10e3/ulCritically high0.00-0.03The [facility] Comment on above:Performed By: #### CBC #### [facility] [address] [place] [address] Dr. David Rubio %0.5 %Normal0.0-0.5The [facility] ClinicComment on above: Performed By: #### CBC #### [facility] [address] [place] [address] Dr. David Barnhart #2.3 103/ulNormal1.2-3.8The [facility] ClinicComment on above:Performed By: #### CBC #### [facility] [address] [place] [address] Dr. David Guevarahocytes/100 WBC (Bld)28.7 %Rmgbvf72.5-60.0The [facility] ClinicComment on above:Performed By: #### CBC #### [facility] [address] [place] [address] Dr. David HanksUAL DIFF REQNONormalThe [facility] ClinicComment on above: Performed By: #### CBC #### [facility] [address] [place] [address] Dr. David León (RBC) [Entitic mass]29.2 dzBlcomc02.7-34.0The [facility] ClinicComment on above:Performed By: #### CBC #### [facility] [address] [place] [address] Dr. David León (RBC) [Mass/Vol]31.7 g/qYGzsnry15.9-35.2The [facility] HospitalComment on above:Performed By: #### CBC #### [facility] [address] [place] [address] Dr. David León (RBC) [Entitic vol]92.1 oPYgjyvu14.0-99.0The [facility] ClinicComment on above:Performed By: #### CBC #### [facility] [address] [place] [address] Dr. David Arellano #0.6 103/ulNormal0.3-0.8The [facility] ClinicComment on above:Performed By: #### CBC #### [facility] [address] [place] [address] Dr. David Sureshocytes/100 WBC (Bld)7.3 %Normal1.7-12.0The [facility] Comment on above:Performed By: #### CBC #### [facility] [address] [place] [address] Dr. David Noble #4.8 103/ulNormal1.4-6.5The [facility] ClinicComment on above:Performed By: #### CBC #### [facility] [address] [place] [address] Dr. David Cavazosutrophils/100 WBC (Bld)59.7 %Kbtbsy63.0-75.0The [facility] ClinicComment on above:Performed By: #### CBC #### [facility] [address] [place] [address] Dr. David Maldonadolet mean volume (Bld) [Entitic vol]9.4 fLCritically low 9.5-13.5The [facility] on above:Performed By: #### CBC #### [facility] [address] [place] [address] Dr. David ArayaT308 103/ysFvbbxe811-224Zis [facility] on above: Performed By: #### CBC #### [facility] [address] [place] [address] Dr. David ZapataRBC4.80 106/ulNormal4.20-5.40The [facility] on above:Performed By: #### CBC #### [facility] [address] [place] [address] Dr. David ZapataWBC8.0 103/ulNormal4.0-11.0The [facility] on above: Performed By: #### CBC #### [facility] [address] [place] [address] Dr. David ArroyoID PROFILEon 07-39-2006LFFD-HDL RATIO NORMSEE [facility] HospitalComselect [facility] on above:Result Comment: 3.3 - 4.4 LOW RISK 4.4 - 7.1 AVERAGE RISK 7.1 - 11.0 MODERATE RISK >11.0 HIGH RISKPerformed By: #### CMP, TSH, LIPID #### [facility] [address] [place] [address] Dr. David ZapataCholesterol [Mass/Vol]203 mg/dLCritically high<=200The [facility] on above:Performed By: #### CMP, TSH, LIPID #### [facility] [address] [place] [address] Dr. David ZapataCholesterol in HDL [Mass/Vol]57 mg/vWYpkdbo71-84Fau [facility] on above:Performed By: #### CMP, TSH, LIPID #### [facility] [address] [place] [address] Dr. David Suarezesterol in LDL [Mass/Vol]120.4 mg/dLNormalThe [facility] HospitalComment on above:Performed By: #### CMP, TSH, LIPID #### [facility] [address] [address] [address] David ZapataCholesterol.total/Cholesterol in HDL [Mass ratio]3.6 {ratio} NormalThe [facility] ClinicComment on above:Performed By: #### CMP, TSH, LIPID #### [facility] [address] [address] [address] David Garcia NORMAL> or = 60 mg/dl - LOW CARDIOVASCULAR RISK <40 mg/dl - HIGH CARDIOVASCULAR RISKMercy Health West HospitalComment on above:Performed By: #### CMP, TSH, LIPID #### [facility] [address] [address] [address] David ZapataLDL CALC NORMALSEE BELOWMercy Health West HospitalComment on above:Result Comment: <100 mg/dl OPTIMAL 100 - 129 mg/dl NEAR OR ABOVE OPTIMAL 130 - 159 mg/dl BORDERLINE HIGH 160 - 189 mg/dl HIGH >190 mg/dl VERY HIGH Performed By: #### CMP, TSH, LIPID #### [facility] [address] [address] [address] David ZapataTriglyceride [Mass/Vol]128 mg/dLNormal<=150The [facility] Comment on above:Performed By: #### CMP, TSH, LIPID #### [facility] [address] [address] [address] David ZapataVLDL CALC25.6 mg/dLNoSelect Medical Specialty Hospital - Columbus SouthComment on above: Performed By: #### CMP, TSH, LIPID #### [facility] [address] [address] [address] David ZapataPROKareem 14(COMP METB)on [id number] [Mass/Vol]3.5 g/dLNormal 3.4-5.0The [facility] ClinicComment on above:Performed By: #### CMP, TSH, LIPID #### [facility] [address] [address] [address] David ZapataAlbumin/Globulin [Mass ratio]1.0 {ratio}NormalThe Lloyd HospitalComment on above:Performed By: #### CMP, TSH, LIPID #### [facility] [address] [place] [address] Dr. David Crockett [Catalytic activity/Vol]68 U/UTwnhps99-121Ztr [facility] ClinicComment on above:Performed By: #### CMP, TSH, LIPID #### [facility] [address] [place] [address] Dr. David Szymanski [Catalytic activity/Vol]28 U/JFrpcan59-06Unz [facility] ClinicComment on above:Performed By: #### CMP, TSH, LIPID #### [facility] [address] [place] [address] Dr. David Nguyen gap [Moles/Vol]11.3 mmol/LNormalThe [facility] Comment on above:Performed By: #### CMP, TSH, LIPID #### [facility] [address] [place] [address] Dr. David Gamino [Catalytic activity/Vol]18 U/WOkmxqw84-41Kad [facility] ClinicComment on above:Performed By: #### CMP, TSH, LIPID #### [facility] [address] [place] [address] Dr. David ZapataBilirubin [Mass/Vol]0.4 mg/dLNormal0.2-1.0[facility] Comment on above:Performed By: #### CMP, TSH, LIPID #### [facility] [address] [place] [address] Dr. David ZapataCalcium [Mass/Vol]8.8 mg/dLNormal8.5-10.1[facility] Comment on above:Performed By: #### CMP, TSH, LIPID #### [facility] [address] [place] [address] Dr. David Vuongide [Moles/Vol]103 mmol/KQekecv77-629Xwo [facility] Comment on above:Performed By: #### CMP, TSH, LIPID #### [facility] [address] [place] [address] Dr. David ZapataCO2 [Moles/Vol]28.4 mmol/RRmxjuj46.0-32.0[facility] Comment on above:Performed By: #### CMP, TSH, LIPID #### [facility] [address] [address] [address] David ZapataCreatinine [Mass/Vol]0.96 mg/dLNormal0.55-1.02The [facility] ClinicComment on above:Performed By: #### CMP, TSH, LIPID #### [facility] [address] [place] [address] Dr. David ChavisGFR-AF ANDORRAN>60Normal>=60The [facility] ClinicComment on above:Performed By: #### CMP, TSH, LIPID #### [facility] [address] [place] [address] Dr. David Mccallum-NON AF ANDORRAN>60Normal>=60The [facility] ClinicComment on above:Performed By: #### CMP, TSH, LIPID #### [facility] [address] [place] [address] Dr. David ZapataGlobulin (S) [Mass/Vol]3.5 g/dLNormalThe [facility] ClinicComment on above:Performed By: #### CMP, TSH, LIPID #### [facility] [address] [place] [address] Dr. David ZapataGlucose [Mass/Vol]94 mg/kTFydrze08-394BhvMercy Health St[facility] Comment on above:Performed By: #### CMP, TSH, LIPID #### [facility] [address] [place] [address] Dr. David ZapataPotassium [Moles/Vol]3.7 mmol/LNormal3.5-5.1The [facility] Comment on above:Performed By: #### CMP, TSH, LIPID #### [facility] [address] [place] [address] Dr. David ZapataProtein [Mass/Vol]7.0 g/dLNormal6.4-8.2The [facility] Comment on above:Performed By: #### CMP, TSH, LIPID #### [facility] [address] [address] [address] David ZapataSodium [Moles/Vol]139 mmol/HAiqhig794-077Fpx [facility] Comment on above:Performed By: #### CMP, TSH, LIPID #### [facility] [address] [address] [address] David ZapataUrea nitrogen [Mass/Vol]8.0 mg/dLNormal7.0-18.0The [facility] ClinicComment on above:Performed By: #### CMP, TSH, LIPID #### [facility] [address] [address] [address] David ZapataUrea nitrogen/Creatinine [Mass ratio]8.3 mg/mgNormalThe [facility] ClinicComment on above:Performed By: #### CMP, TSH, LIPID #### [facility] [address] [place] [address] Dr. David ZapataTSHon 58-38-0002ALH3.557 uIU/mLNormal0.358-3.740The [facility] ClinicComment on above:Performed By: #### CMP, TSH, LIPID #### [facility] [address] [address] [address] David ZapataVITAMIN B12on 10-11-5805Vwhdbwedn (Vitamin B12) [Mass/Vol]247.0 pg/hTPmeppr763.0-986.0The [facility] ClinicComment on above:Performed By: #### VITB12 #### [facility] [address] [place] [address] Dr. aDvid ZapataNM STRESS/REST MULTIon 61-94-9699PG STRESS/REST MULTIPatient: ELVIA FOX Exam Date: 11/04/2022 : 1975 Gender:F Ordering : DR VIDHI ANDERSON M.D. Admission #: [id number] Family : Order #: [id number] CLICK HERE TO VIEW EXAM RADIOLOGY REPORT [...] by: Edilson John M.D. on 11/05/2022 at 11:01[facility] MAMM SCREEN 3D AMANUEL CADon 17-61-1064UA MAMM SCREEN 3D AMANUEL CADPatient: ELVIA FXO Exam Date: 07/10/2022 : 1975 Gender:F Ordering : DR PAT HUSTON M.D. Admission #: [id number] Family : Order #: [id number] CLICK HERE TO VIEW EXAM RADIOLOGY REPORT [...] Treatments None Family Cancers None LOCATION: [facility] BREAST COMPOSITION: Heterogeneously dense,which may obscure small [...] by: Nilesh Deutsch MD on 07/10/2022 at 08:04NoalThMercy Health [facility] AUTO DIFFon [id number] #0.0 103/ulNormal0.0-0.1[facility] HospitalComment on above:Performed By: #### CBC #### [facility] [address] [place] [address] Dr. David ZapataBasophils/100 WBC (Bld)0.5 %Normal0.2-2.0[facility] Comment on above:Performed By: #### CBC #### [facility] [address] [place] [address] Dr. David Henry #0.3 103/ulNormal0.0-0.7The [facility] ClinicComment on above: Performed By: #### CBC #### [facility] [address] [place] [address] Dr. David Chavisosinophils/100 WBC (Bld)3.4 %Normal0.9-7.0[facility] Comment on above:Performed By: #### CBC #### [facility] [address] [place] [address] Dr. David Chavisrythrocyte distribution width (RBC) [Ratio]12.1 %Ugriuo30.0-15.[address] [facility] HospitalComment on above:Performed By: #### CBC #### [facility] [address] [place] [address] Dr. David ZapataHematocrit (Bld) [Volume fraction]40.6 %Aahvyp10.0-48.0[facility] HospitalComment on above:Performed By: #### CBC #### [facility] [address] [place] [address] Dr. David ZapataHemoglobin (Bld) [Mass/Vol]13.5 g/mDSmpxot60.0-16.0The [facility] on above:Performed By: #### CBC #### [facility] [address] [place] [address] Dr. David Rubio #0.03 10e3/ulNormal0.00-0.03The [facility] ClinicComment on above:Performed By: #### CBC #### [facility] [address] [place] [address] Dr. David Rubio %0.4 %Normal0.0-0.5The [facility] ClinicComselect specialty hospital on above: Performed By: #### CBC #### [facility] [address] [place] [address] Dr. David Barnhart #2.1 103/ulNormal1.2-3.8The [facility] ClinicComment on above:Performed By: #### CBC #### [facility] [address] [place] [address] Dr. David Guevarahocytes/100 WBC (Bld)28.6 %Rmcqvk82.5-60.0The [facility] on above:Performed By: #### CBC #### [facility] [address] [place] [address] Dr. David HanksUAL DIFF REQNONormalThe [facility] ClinicComment on above: Performed By: #### CBC #### [facility] [address] [place] [address] Dr. David León (RBC) [Entitic mass]29.2 uvUhgybw97.7-34.0The [facility] ClinicComment on above:Performed By: #### CBC #### [facility] [address] [place] [address] Dr. David León (RBC) [Mass/Vol]33.3 g/sORatzrh83.9-35.2The [facility] ClinicComment on above:Performed By: #### CBC #### [facility] [address] [address] [address] David LeónV (RBC) [Entitic vol]87.9 pMXosrti41.0-99.0The [facility] Hospitalment on above:Performed By: #### CBC #### [facility] [address] [place] [address] Dr. David Arellano #0.6 103/ulNormal0.3-0.8The [facility] ClinicComment on above:Performed By: #### CBC #### [facility] [address] [place] [address] Dr. David Sureshocytes/100 WBC (Bld)7.9 %Normal1.7-12.0The [facility] Comment on above:Performed By: #### CBC #### [facility] [address] [place] [address] Dr. David Noble #4.3 103/ulNormal1.4-6.5The [facility] Hospitalment on above:Performed By: #### CBC #### [facility] [address] [place] [address] Dr. David Cavazosutrophils/100 WBC (Bld)59.2 %Txaovb91.0-75.0The [facility] ClinicComment on above:Performed By: #### CBC #### [facility] [address] [place] [address] Dr. David Maldonadolet mean volume (Bld) [Entitic vol]9.2 fLCritically low 9.5-13.5The [facility] Hospitalment on above:Performed By: #### CBC #### [facility] [address] [place] [address] Dr. David ZapataPLT280 103/feRsozeb762-506Ael [facility] ClinicComment on above: Performed By: #### CBC #### [facility] [address] [place] [address] Dr. David ZapataRBC4.62 106/ulNormal4.20-5.40The [facility] Hospitalment on above:Performed By: #### CBC #### [facility] [address] [address] [address] David ZapataWBC7.3 103/ulNormal4.0-11.0The [facility] on above: Performed By: #### CBC #### [facility] [address] [address] [address] David ZapataGLYCOHEMOGLOBIN A1Con 28-96-3366AHT RECOMMENDATIONSEE BELOWDunlap Memorial HospitalComselect specialty hospital on above:Result Comment: ADA RECOMMENDED LIMIT 4.0 - 6.0 ADA THERAPEUTIC TARGET < 7.0 ACTION SUGGESTED > 7.0Performed By: #### CMP, TSH, LIPID #### [facility] [address] [place] [address] Dr. David ZapataGlucose [Mass/Vol]103 mg/dLNoBlanchard Valley Health System on above:Performed By: #### CMP, TSH, LIPID #### [facility] [address] [place] [address] Dr. David ZapataHbA1c (Bld) [Mass fraction]5.2 %Normal4.5-6.2The [facility] on above:Performed By: #### CMP, TSH, LIPID #### [facility] [address] [place] [address] Dr. David ZapataLIPID PROFILEon [id number]-HDL RATIO NORMSEE [facility] on above:Result Comment: 3.3 - 4.4 LOW RISK 4.4 - 7.1 AVERAGE RISK 7.1 - 11.0 MODERATE RISK >11.0 HIGH RISKPerformed By: #### CMP, TSH, LIPID #### [facility] [address] [address] [address] David ZapataCholesterol [Mass/Vol]217 mg/dLCritically high<=200The [facility] on above:Performed By: #### CMP, TSH, LIPID #### [facility] [address] [place] [address] Dr. David ZapataCholesterol in HDL [Mass/Vol]50 mg/aNRubjaq42-19Oau [facility] ClinicComment on above:Performed By: #### CMP, TSH, LIPID #### [facility] [address] [address] [address] David Suarezesterol in LDL [Mass/Vol]137.6 mg/dLMercy Health West HospitalComselect specialty hospital on above:Performed By: #### CMP, TSH, LIPID #### [facility] [address] [address] [address] David Mayers.total/Cholesterol in HDL [Mass ratio]4.3 {ratio} NormalThe [facility] ClinicComment on above:Performed By: #### CMP, TSH, LIPID #### [facility] [address] [place] [address] Dr. David Garcia NORMAL> or = 60 mg/dl - LOW CARDIOVASCULAR RISK <40 mg/dl - HIGH CARDIOVASCULAR RISKMercy Health West HospitalComment on above:Performed By: #### CMP, TSH, LIPID #### [facility] [address] [address] [address] David Bardales CALC NORMALSEE BELOWMercy Health West HospitalComment on above:Result Comment: <100 mg/dl OPTIMAL 100 - 129 mg/dl NEAR OR ABOVE OPTIMAL 130 - 159 mg/dl BORDERLINE HIGH 160 - 189 mg/dl HIGH >190 mg/dl VERY HIGH Performed By: #### CMP, TSH, LIPID #### [facility] [address] [address] [address] David ZapataTriglyceride [Mass/Vol]147 mg/dLNormal<=150The [facility] Comment on above:Performed By: #### CMP, TSH, LIPID #### [facility] [address] [address] [address] David PantojaLDL CALC29.4 mg/dLNoSelect Medical Specialty Hospital - Columbus SouthComment on above: Performed By: #### CMP, TSH, LIPID #### [facility] [address] [place] [address] Dr. David ZapataPROF 14(COMP METB)on 48-92-0242Smfhgxg [Mass/Vol]3.6 g/dLNormal 3.4-5.0The [facility] ClinicComment on above:Performed By: #### CMP, TSH, LIPID #### [facility] [address] [address] [address] David ZapataAlbumin/Globulin [Mass ratio]1.1 {ratio}NormalThe [facility] ClinicComment on above:Performed By: #### CMP, TSH, LIPID #### [facility] [address] [address] [address] David Crockett [Catalytic activity/Vol]62 U/SAfnfqg05-024Bdq [facility] ClinicComment on above:Performed By: #### CMP, TSH, LIPID #### [facility] [address] [place] [address] Dr. David Szymanski [Catalytic activity/Vol]21 U/ECmtcyc74-48Yyx [facility] ClinicComment on above:Performed By: #### CMP, TSH, LIPID #### [facility] [address] [place] [address] Dr. David Nguyen gap [Moles/Vol]12.6 mmol/LNormalThe [facility] Comment on above:Performed By: #### CMP, TSH, LIPID #### [facility] [address] [place] [address] Dr. David ZapataAST [Catalytic activity/Vol]14 U/LCritically ylu24-07Pso [facility] ClinicComment on above:Performed By: #### CMP, TSH, LIPID #### [facility] [address] [place] [address] Dr. David ZapataBilirubin [Mass/Vol]0.6 mg/dLNormal0.2-1.0The [facility] Comment on above:Performed By: #### CMP, TSH, LIPID #### [facility] [address] [place] [address] Dr. David ZapataCalcium [Mass/Vol]8.5 mg/dLNormal8.5-10.1[facility] Comment on above:Performed By: #### CMP, TSH, LIPID #### [facility] [address] [place], [place] [id number] Dr. David ZapataChloride [Moles/Vol]103 mmol/NTxpdcj98-236Kzq [facility] Comment on above:Performed By: #### CMP, TSH, LIPID #### [facility] [address] [place] [address] Dr. David ZapataCO2 [Moles/Vol]26.2 mmol/BCspdfy24.0-32.0The [facility] Comment on above:Performed By: #### CMP, TSH, LIPID #### [facility] [address] [place] [address] Dr. David ZapataCreatinine [Mass/Vol]0.94 mg/dLNormal0.55-1.02[facility] HospitalComment on above:Performed By: #### CMP, TSH, LIPID #### [facility] [address] [place] [address] Dr. Hernandez ChangEGFR-AF ANDORRAN>60Normal>=60The [facility] ClinicComment on above:Performed By: #### CMP, TSH, LIPID #### [facility] [address] [place] [address] Dr. David ChavisGFR-NON AF ANDORRAN>60Normal>=60The [facility] ClinicComment on above:Performed By: #### CMP, TSH, LIPID #### [facility] [address] [place] [address] Dr. David ZapataGlobulin (S) [Mass/Vol]3.3 g/dLNormalThe [facility] ClinicComment on above:Performed By: #### CMP, TSH, LIPID #### [facility] [address] [place] [address] Dr. David ZapataGlucose [Mass/Vol]100 mg/iEAutuhd54-873Krm [facility] Comment on above:Performed By: #### CMP, TSH, LIPID #### [facility] [address] [place] [address] Dr. David ZapataPotassium [Moles/Vol]3.8 mmol/LNormal3.5-5.1The [facility] Comment on above:Performed By: #### CMP, TSH, LIPID #### [facility] [address] [address] [address] David ZapataProtein [Mass/Vol]6.9 g/dLNormal6.4-8.2The [facility] Comment on above:Performed By: #### CMP, TSH, LIPID #### [facility] [address] [address] [address] David ZapataSodium [Moles/Vol]138 mmol/JFbjnvw965-266Ira [facility] Comment on above:Performed By: #### CMP, TSH, LIPID #### [facility] [address] [address] [address] David ZapataUrea nitrogen [Mass/Vol]7.0 mg/dLNormal7.0-18.0The [facility] ClinicComment on above:Performed By: #### CMP, TSH, LIPID #### [facility] [address] [place] [address] Dr. David Khan nitrogen/Creatinine [Mass ratio]7.4 mg/mgNormalThe [facility] ClinicComment on above:Performed By: #### CMP, TSH, LIPID #### [facility] [address] [place] [address] Dr. David Tobias 46-00-7038EEY6.434 uIU/mLNormal0.358-3.740The [facility] ClinicComment on above:Performed By: #### CMP, TSH, LIPID #### [facility] [address] [place] [address] Dr. David ZapataMRI BRAIN WO W CONon 77-58-4501WJJ BRAIN WO W CONEXAMINATION: MRI BRAIN WO [...] Electronically authenticated by: EDILSON JOHN Date: 2022-06-10 06:40[facility] METABOLIC PANELon 96-89-0241Hwowwvk [Mass/Vol]8.6 mg/dL Normal8.6-10.3The [facility] HospitalComment on above:Order Comment: No: Do not add to previous drawPerformed By: #### 27772, 92917 #### [facility] [address] [place] [address], USAChloride [Moles/Vol]106 mmol/DYokrgu23-978Quz [facility] HospitalComment on above:Order Comment: No: Do not add to previous drawPerformed By: #### 92867, 27541 #### [facility] [address] [place] [address], USACO2 [Moles/Vol]24 mmol/EEfkgfm52-75Mgk [facility] HospitalComment on above:Order Comment: No: Do not add to previous draw Performed By: #### 27851, 94110 #### [facility] [address] [place] [address], USACreatinine [Mass/Vol]0.90 mg/dLNormal0.60-1.20The [facility] HospitalComment on above:Order Comment: No: Do not add to previous drawPerformed By: #### 64038, 99918 #### [facility] [address] [place] [address], USAGFR/1.73 sq M predicted among blacks MDRD (S/P/Bld) [Vol rate/Area]mL/min/{1.73_m2}Normal>60The [facility] Comment on above:Order Comment: No: Do not add to previous drawPerformed By: #### 57959, 05281 #### [facility] [address] [place] [address], USAGFR/1.73 sq M predicted among non-blacks MDRD (S/P/Bld) [Vol rate/Area]mL/min/{1.73_m2}Normal>60The [facility] Comment on above:Order Comment: No: Do not add to previous drawPerformed By: #### 43203, 07866 #### [facility] [address] [place] [address], USAGlucose [Mass/Vol]97 mg/vVPnfbgw29-882Vmh [facility] HospitalComment on above:Order Comment: No: Do not add to previous drawPerformed By: #### 12751, 58398 #### [facility] [address] [place] [address], USAPotassium [Moles/Vol]3.9 mmol/LNormal3.5-5.1The [facility] HospitalComment on above:Order Comment: No: Do not add to previous drawPerformed By: #### 42868, 94536 #### [facility] [address] [place] [address], USASodium [Moles/Vol]136 mmol/KSmrvfp312-109Epi [facility] HospitalComment on above:Order Comment: No: Do not add to previous drawPerformed By: #### 45328, 03131 #### [facility] [address] [place] [address], USAUrea nitrogen [Mass/Vol]11 mg/dLNormal7-25The [facility] HospitalComment on above:Order Comment: No: Do not add to previous drawPerformed By: #### 11609, 80866 #### [facility] [address] [place] [address], USACBC COMPLETE BLOOD COUNTon 16-33-5859Uloxyznanes distribution width (RBC) [Ratio]12.0 %Xvqenl20.5-15.0The [facility] HospitalComment on above:Order Comment: No: Do not add to previous draw Performed By: #### 47917 #### [facility] [address] [place] [address], USAHematocrit (Bld) [Volume fraction]42.7 %Fvcemi00.0-45.0The [facility] HospitalComment on above:Order Comment: No: Do not add to previous drawPerformed By: #### 00151 #### [facility] [address] [place] [address], USAHemoglobin (Bld) [Mass/Vol]13.9 g/dARvykoo54.0-15.0The [facility] HospitalComment on above:Order Comment: No: Do not add to previous drawPerformed By: #### 40665 #### [facility] [address] [place] [address], [facility] (RBC) [Entitic mass]29.6 flNueyvt26.0-33.0The [facility] HospitalComment on above:Order Comment: No: Do not add to previous drawPerformed By: #### 29939 #### [facility] [address] [place] [address], [facility] CENTERMCHC (RBC) [Mass/Vol]32.6 g/cRBmdspk89.0-35.0The [facility] HospitalComment on above:Order Comment: No: Do not add to previous drawPerformed By: #### 52336 #### [facility] [address] [place] [address], [facility] CENTERMCV (RBC) [Entitic vol]91.0 mOHpyock45.0-98.0The [facility] HospitalComment on above:Order Comment: No: Do not add to previous drawPerformed By: #### 92981 #### [facility] [address] [place] [address], USANucleated RBC/100 WBC (Bld) [Ratio]0 %Normal0-0The [facility] HospitalComment on above:Order Comment: No: Do not add to previous drawPerformed By: #### 61611 #### [facility] [address] [place] [address], USAPLAT QEB040 10*3/wDFvtbwe902-776Apc [facility] HospitalComment on above:Order Comment: No: Do not add to previous draw Performed By: #### 98879 #### [facility] [address] [place] [address], USARBC (Bld) [#/Vol]4.69 10*6/uLNormal3.80-5.00The [facility] HospitalComment on above:Order Comment: No: Do not add to previous drawPerformed By: #### 40247 #### [facility] [address] [place] [address], USAWBC (Bld) [#/Vol]8.19 10*3/uLNormal4.00-10.60The [facility] HospitalComment on above:Order Comment: No: Do not add to previous drawPerformed By: #### 22549 #### [facility] [address] [place] [address], USACardiovascular Lab Reporton [id number] Lab ReportUnGrand [facility] Patient Name: Elvia Fox [facility] Alexy MR #: [id number] Department of Physician: Mike Polanco M.D. Division of Service Date: 06/16/2019 Cardiology Birthdate: 1975 Adult Cardiovascular Room #: 3AB [id number] [place] [address] [address] [place], [place] [address] Cardiovascular Laboratory Report FINAL IMPRESSIONS: 1. Angiographically [...] the left radial artery was obtained. A 6-Peruvian glide sheath was inserted without difficulty. Bilateral [...] Anderson M.D. Date Trans: 06/17/2019 04:09 Alexy/adela DN_JN:[id number] cc: Pat Huston M.D. [address] [place] [address] Amos Vazquez M.D. [address] [address]OtbhxbUmfGalion HospitalHEMOGLOBIN A1Con 40-17-5290KqO5z (Bld) [Mass fraction]4.8 %Normal4.0-6.0The [facility] HospitalComment on above:Order Comment: Yes: Add to Previous draw if ablePerformed By: #### 61291, 06310 #### [facility] [address] [place] [address], GQKAkT2k (Bld) [Mass fraction]91 mg/uZLuupkn36-315Fih [facility] HospitalComment on above:Order Comment: Yes: Add to Previous draw if ablePerformed By: #### 94895, 72574 #### [facility] [address] [place] [address], USALIPID PROFILEon 43-01-1522Ukzffhujmsp [Mass/Vol]209 mg/dL Uejk811-178Oku [facility] HospitalComment on above:Order Comment: Yes: Add to Previous draw if ableResult Comment: CHOLESTEROL REFERENCE RANGE: 20 YEARS AND OLDER CARDIOVASCULAR RISK Less than 200 mg/dl Low Risk 200 to 239 mg/dl Borderline Risk 240 mg/dl and greater High RiskPerformed By: #### 78216, 17565, 38638, 17568 #### [facility] [address] [place] [address], USACholesterol in HDL [Mass/Vol]35 mg/nVIabodz68-03Mbb [facility] HospitalComment on above:Order Comment: Yes: Add to Previous draw if ableResult Comment: Slight variation in normal range could be due to gender and/or age. HDL CHOLESTEROL REFERENCE RANGE: 20 years and older Cardiovascular Risk > or =60 mg/dL Desirable 40 TO 59 mg/dL Low Risk <40 mg/dL High RiskPerformed By: #### 98226, 96040, 99291, 68804 #### [facility] [address] [place] [address], USACholesterol in LDL [Mass/Vol]139 mg/dLHigh0-130The [facility] HospitalComment on above:Order Comment: Yes: Add to Previous draw if ableResult Comment: LDL IS A CALCULATION LDL IS ONLY VALID IF THE TRIG IS LESS THAN 400.Performed By: #### 05659, 13815, 42604, 24252 #### [facility] [address] [place] [address], USACholesterol.total/Cholesterol in HDL [Mass ratio]6.0 {ratio}High0.0-4.5The [facility] HospitalComment on above:Order Comment: Yes: Add to Previous draw if ablePerformed By: #### 81666, 00607, 09220, 40649 #### [facility] [address] [place] [address], USANON-HDL GEBCYXZJHIC169 mg/dLNormalThe [facility] HospitalComment on above:Order Comment: Yes: Add to Previous draw if able Performed By: #### 91383, 79637, 08028, 07950 #### [facility] [address] [place] [address], USATriglyceride [Mass/Vol]174 mg/mRWnmk20-674Lcq [facility] HospitalComment on above:Order Comment: Yes: Add to Previous draw if ableResult Comment: TRIGLYCERIDE REFERENCE RANGE: 20 YEARS AND OLDER CARDIOVASCULAR RISK LESS THAN 150 mg/dl LOW RISK 150 TO 199 mg/dl BORDERLINE RISK 200 mg/dl AND GREATER HIGH RISKPerformed By: #### 27896, 41544, 08937, 41084 #### [facility] [address] [facility] [address], [facility] MEDICAL CENTERVLDL CHOL35 mg/dLNormal0-40The [facility] HospitalComment on above:Order Comment: Yes: Add to Previous draw if able Performed By: #### 59350, 85859, 11077, 73704 #### [facility] [address] [place] [address], USAMAGNESIUM BLOODon 02-76-7565Zbttsoeey [Mass/Vol]2.2 mg/dL Normal1.9-2.7The [facility] HospitalComment on above:Order Comment: No: Do not add to previous drawPerformed By: #### 73613, 31947, 39175, 76656 #### [facility] [address] [place] [address], USAPHOSPHORUS BLOODon 80-08-9906Qaexhhzhv [Mass/Vol]4.3 mg/dL Normal2.5-5.0The [facility] HospitalComment on above:Order Comment: No: Do not add to previous drawPerformed By: #### 08731, 89073 #### [facility] [address] [facility] [place] [address], USAAPTTon 04-32-5952fEDH Coag (Bld) [Time]27.3 sNormal 25.0-35.0The [facility] HospitalComment on above:Result Comment: ALL RESULTS MUST [...] BE USED FOR THIS PURPOSE.Performed By: #### 48383, 30373 #### [facility] [address] [place] [address], USABASIC METABOLIC PANELon 15-97-6646Cfrikqf [Mass/Vol]9.3 mg/dLNormal8.6-10.3The [facility] HospitalComment on above:Order Comment: No: Do not add to previous drawPerformed By: #### 51980, 85481, 40187, 60500, 49541 #### [facility] [address] [place] [address], USAChloride [Moles/Vol]105 mmol/ZJjusti11-207Kdj [facility] HospitalComment on above:Order Comment: No: Do not add to previous drawPerformed By: #### 46954, 12165, 78071, 54149, 81181 #### [facility] [address] [place] [address], USACO2 [Moles/Vol]23 mmol/GAdejuz47-23Iwj [facility] HospitalComment on above:Order Comment: No: Do not add to previous draw Performed By: #### 06315, 44132, 75196, 44198, 87861 #### [facility] [address] [place] [address], USACreatinine [Mass/Vol]0.85 mg/dLNormal0.60-1.20The [facility] HospitalComment on above:Order Comment: No: Do not add to previous drawPerformed By: #### 20917, 40679, 85353, 83993, 81604 #### [facility] [address] [place] [address], USAGFR/1.73 sq M predicted among blacks MDRD (S/P/Bld) [Vol rate/Area]mL/min/{1.73_m2}Normal>60The [facility] Comment on above:Order Comment: No: Do not add to previous drawPerformed By: #### 98785, 78302, 64510, 61674, 84218 #### [facility] [address] [place] [address], USAGFR/1.73 sq M predicted among non-blacks MDRD (S/P/Bld) [Vol rate/Area]mL/min/{1.73_m2}Normal>60The [facility] Comment on above:Order Comment: No: Do not add to previous drawPerformed By: #### 01405, 79271, 59902, 90016, 03964 #### [facility] [address] [place] [address], USAGlucose [Mass/Vol]91 mg/dCKmoqpw80-968Iqd [facility] HospitalComment on above:Order Comment: No: Do not add to previous drawPerformed By: #### 63090, 96282, 99159, 41709, 04209 #### [facility] [address] [place] [address], USAPotassium [Moles/Vol]3.9 mmol/LNormal3.5-5.1The [facility] HospitalComment on above:Order Comment: No: Do not add to previous drawPerformed By: #### 46103, 85729, 43759, 74821, 39275 #### [facility] [address] [place] [address], USASodium [Moles/Vol]136 mmol/LRimqpi537-526Nia [facility] HospitalComment on above:Order Comment: No: Do not add to previous drawPerformed By: #### 97019, 58756, 64142, 21566, 46699 #### [facility] [address] [place] [address], USAUrea nitrogen [Mass/Vol]10 mg/dLNormal7-25The [facility] HospitalComment on above:Order Comment: No: Do not add to previous drawPerformed By: #### 08353, 77403, 95092, 27576, 01662 #### [facility] [address] [place] [address], USAFREE T3on 91-18-0844Nbvl T3 [Mass/Vol]2.6 pg/mLNormal 2.5-3.9The [facility] HospitalComment on above:Performed By: #### 24499, 40312, 57257, 70569, 76349 #### [facility] [address] [place] [address], USAFREE T4on 84-57-5521Ufoa T4 [Mass/Vol]0.73 ng/dLNormal 0.71-1.85The [facility] HospitalComment on above:Performed By: #### 49666, 34327, 73735, 62966, 08302 #### [facility] [address] [place] [address], USAMAGNESIUM BLOODon 62-74-9322Nmwhsvfld [Mass/Vol]2.2 mg/dL Normal1.9-2.7The [facility] HospitalComment on above:Order Comment: No: Do not add to previous draw MissPerformed By: #### 65176, 22161, 01219, 69082, 17629 #### [facility] [address] [place] [address], USAPROTHROMBIN TIMEon 78-34-4460ACA Coag (PPP) [Relative time] 1.06 {INR}Normal0.91-1.16The [facility] HospitalComment on above:Result Comment: ACCCP RECOMMENDED INR [...] OPTIMAL THERAPEUTIC RANGE. CHEST 1995;108:231S-246S.Performed By: #### 04041, 14387 #### [facility] [address] [facility] [place] [address], USAPT Coag (PPP) [Time]13.8 iImkyfc85.3-14.8The [facility] HospitalComment on above:Result Comment: ALL RESULTS MUST BE INTERPRETED WITH RESPECT TO BLOOD DRAWING ARTIFACT OR DILUTION ERROR OF ANTICOAGULANT AT THE TIME OF SAMPLING.Performed By: #### 17124, 55736 #### [facility] [address] [facility] [place] [address], KGJEWN7vt 35-11-2095EGP 3RD GENERATION1.94 uIU/mLNormal 0.34-5.60The [facility] HospitalComment on above:Performed By: #### 74358, 72120, 69104, 38033, 50963 #### [facility] [address] [facility] [place] [address], [facility] Vital Signs Date TimeVital SignValuePerforming VlsgbpqtlNitgmgik15-78-2937 16:18-0400 Diastolic blood sjpvjray85 mm[Hg]Pat Huston MD Work Phone: [facility]07-31-2025 16:18-0400 Heart rate62 /Rubina Huston MD Work Phone: [facility]07-31-2025 16:18-0400 Systolic blood mm[Hg]Pat Huston MD Work Phone: [facility]12-16-2024 11:00-0500 Body .1 cmAchemadottie Woodsvik JAVA J2EE SOFTWARE ENGINEER Work Phone: [facility] SystemAdlljlokgk02-19-9194 11:00-0500Body mass index (BMI) [Ratio]35.65 kg/o6Bworci Salinas JAVA J2EE SOFTWARE ENGINEER Work Phone: [facility] SystemLrcenytava85-84-1680 11:00-0500Body vmdbxi35.18 kgHarlan Salinas JAVA J2EE SOFTWARE ENGINEER Work Phone: [facility] SystemHtcczifdgo41-86-5541 11:00-0500Diastolic blood libiejrj86 mm[Hg]Harlan Salinas JAVA J2EE SOFTWARE ENGINEER Work Phone: [facility] SystemUbumysfudv37-71-0433 11:00-0500Heart rate58 /min Harlan Niño JAVA J2EE SOFTWARE ENGINEER Work Phone: [facility] SystemVxafafjyge48-02-6303 11:00-1013NcH7% (BldA) [Mass fraction]98 %Harlan Salinas JAVA J2EE SOFTWARE ENGINEER Work Phone: [facility] SystemZherlxctla97-06-3947 11:00-0500Systolic blood ioaezhbb343 mm[Hg]Harlan Salinas JAVA J2EE SOFTWARE ENGINEER Work Phone: [facility] SystemCkypbwampx76-08-2062 11:16-0400Body uvbnab448.1 cmL[facility]10-30-2024 11:16-0400Body mass index (BMI) [Ratio]35.4 kg/j6WzphqrpbnLakehealth Tripoint Medical Center10-30-2024 11:16-0400Body .61 kgLakehealth [facility] Center10-30-2024 11:16-0400Diastolic blood jultlkin05 mm[Hg][facility]10-30-2024 11:16-0400 Heart rate65 /minLakehealth Tripoint Medical Center10-30-2024 11:16-0400Systolic blood ewewonvb510 mm[Hg][facility]11-14-2023 10:29-0500 Body .1 cmMD Pat Huston Work Phone: [facility]11-14-2023 10:29-0500 Body .52 kgMD Pat Robel Work Phone: [facility] Encounters Encounter DateEncounter TypeCare ProviderFacilityStart: 05-24-2025 End: 51-63-2112hqtstzluqlMkggrh E Braun MD Work Phone: [facility] Work Phone: Start: 05-24-2025 End: 20-84-2713Ouorloz encounter procedureHarlan Brandt [facility] [place] Work Phone: Start: 05-03-2025 End: 13-44-9152ixwmlbsvzxIADBSumma Health Wadsworth - Rittman Medical Centertart: 10-09-2024 End: 70-16-8283Nhpkta flowsheetHarlan Niño JAVA J2EE SOFTWARE ENGINEER Work Phone: [facility]TEStart: 10-09-2024 End: 05-35-8594Piqmbc flowsheetHarlan Niño JAVA J2EE SOFTWARE ENGINEER Work Phone: noMS [facility]TEStart: 10-09-2024 End: 62-16-7372Bsctjd outpatient visit 25 minutesAngejayne Niño JAVA J2EE SOFTWARE ENGINEER Work Phone: noMS [facility] STATE ROUTEComment on above:Abnormal MRI (Primary Dx); Anisocoria; Tremor; Tension-type headache, not intractable, unspecified chronicity pattern; Vertigo; Primary insomniaStart: 10-09-2024 End: 96-87-2212bwohmefwmxAHTYGX GILLMORNot AvailableStart: 00-54-1969Rbraxhn encounter [facility] Hospitaltart: 08-23-2024 End: 68-08-3649snsnklxsniMqervjrgbGalion Hospital Work Phone: Start: 08-23-2024 End: 89-39-9418Nbzqamq encounter procedureD[facility] Phys[facility] Work Phone: Start: 03-16-2024 End: 69-81-2203Ccauuudfn Result EncounterAngela Peggymor JAVA J2EE SOFTWARE ENGINEER Other Phone: [facility] External Department UnsolicitedStart: 03-16-2024 End: 54-96-2397Ndvpnftbs Result EncounterAngela Peggymor JAVA J2[employer] SOFTWARE ENGINEER Other Phone: noms External Department UnsolicitedStart: 02-28-2024 End: 62-89-7074zsimpznsdzHLGWPU PEGGYMORNot AvailableStart: 03-49-9534Avwzqcrmc encounterMarcia RobelRegency Hospital Toledotart: 09-07-2023 End: 35-37-5801jhekzoiluuQettng E BraunFacility:[facility] Hospitaltart: 09-07-2023 End: 80-02-3427tetxpntnalIL Marcia E Braun Work Phone: [facility] Work Phone: Start: 09-07-2023 End: 74-48-9677Ixelzon encounter procedureMD Pat Huston Work Phone: [facility] [place] Work Phone: Start: 08-06-2023 End: 02-42-9568smzisrgjdnSdoneq Braun Other [employer] Other Start: 31-20-6005Sidfaaaqn encounterMarcia RobelWhite Hospital ClinicStart: 07-27-2023 End: 97-12-6191mvpshuvyefGwgeuz Braun Other [employer] Other Start: 12-19-4838Qmjnntjeb encounterMarcia RobelWhite Hospital ClinicStart: 07-13-2023 End: 19-55-1979nxsnqokarfSxefjw Braun Other [employer] Other Start: 20-48-2457Hbgkjfgzt encounterMarcia RobelWhite Hospital ClinicStart: 07-06-2023 End: 87-96-4127wkufjdmthrCixlhe Robel Other [employer] Other Start: 08-53-5397Qxveurbmg encounterPat [facility]ee [facility] ClinicStart: 99-36-8291icpqlicrggPyezwmhzicg Abdelaziz Facility:[facility] Hospitaltart: 40-92-2493htnvppeblnJM EHAB ELTAHAWYFacility:P4Vuzrg: 02-16-2023 End: 53-16-9160oufftqzbdbHR JL DANNERFacility:L3Nzgvi: 02-11-2023 End: 24-22-4698bqshqejhtxUQ EHAB ELTAHAWYFacility:S2Irwrv: 20-66-3114Nikynjdek for general adult medical examination without abnormal findingsDR PAT HUSTON [facility] Campustart: 11-19-2022 End: 50-70-1108uleytyltykXaqbls Braun Other [employer] Other Start: 14-66-3059Ewpjpxssa encounterPat [facility] ClinicStart: 11-18-2022 End: 19-85-2909tcgmdicxjhIR PAT HUSTONFacility:H6Vitso: 11-18-2022 End: 80-83-9293Olbuphgvv for general adult medical examination without abnormal findingsDR PAT HUSTONFacility:P6Jqtpg: 11-04-2022 End: 86-82-6738xbeqlcxlvcWV EHAB ELTAHAWYFacility:J5Gdbiv: 07-10-2022 End: 92-92-2829fguqucjqdbKF PAT HUSTONFacility:F4Rmhem: 68-45-3490Vbvhx health examinationPat Huston Other [employer] Other Start: 87-67-2124Naihjdsss for general adult medical examination without abnormal findingsPat Huston Other [employer] Other Start: 06-24-2022 End: 41-72-1922ujxzrvidgkTR PAT HUSTONFacility:X9Avgtc: 06-09-2022 End: 68-07-2229jmqbxsnxwvEC DOCTOR MISCFacility:B9Dsgto: 06-16-2019 End: 26-98-0921Bhruvdg encounter procedureOMAR AL-HOURANIFacility:UTMCStart: 14-78-9010Xelcpsoemzvvw examination normalPat [place] Other Nort YES.TAP Other Procedures DateProcedureProcedure DetailPerforming ClinicianStart: 08-14-8616SIA HEAD/BRAIN WO/W Scott Niño NP Other Phone: Start: 71-45-2710GKG of bilateral breasts with contrastMD Pat Robel Work Phone: Start: 58-41-3593Zretnnmvc visitPat Robel Other Start: 71-81-7458Ybnkfqbkdjhca care educationPat Robel Other Screening for malignant neoplasm of breastPat Robel Other Viral screeningPat Robel Other Plan of Treatment DateCare ActivityDetailAuthorStart: 04-02-2025 End: 94-17-0309Pezvfqx encounter pptlofpff10/09/2025 4:00 PM EDT Office Visit [facility] [address] [place] [address] Harlan Niño NP [address] [place] [address] [facility] R[facility]TEStart: 10-09-2024 End: 78-96-6012Hismzbj encounter zzaalzjdi63/16/2024 10:40 AM EST Office Visit [facility] [address] [place] [address] Harlan Niño NP [address] [place] [address] [facility] ROUTEComment on above: ArrivedComprehensive metabolic 2000 panel - Serum or PlasmaLakehealth Tripoint Medical CenterXR Pelvis and Hip - bilateral ViewsAdventHealth Lake Mary ER Payers DatePayer CategoryPayerPolicy [id number]-[id number] [id number] [facility] [id number]13859.85274-34-1701VckkuzjXBR9801098ZP [id number] 2..9.249953.97329781-03-8689Hlaandj95546079 2..1.923192.3.579.2.97787-60-4456Qwknsdp1592240 2..1.691541.3.579.2.14581-27-4312Tnccmmk3532718 2..1.047260.3.579.2.17180-07-5715Kgbcppy8955938 2..1.824185.3.579.2.88427-50-3818Viposap2984308 2..1.041423.3.579.2.44808-58-6145Ljvkdmd5880745 2.16.840.1.045162.3.579.2.49240-77-4172Cfvrdyq4890406 2.16.840.1.629679.3.579.2.29430-73-8497Zniibgd2338616 2.16.840.1.778897.3.579.2.72403-44-9452Xatutzt7138745 2.16.840.1.090402.3.579.2.98854-88-0109Exliswu4091307 2.16.840.1.046399.3.579.2.573700-53-4950Yldzzqa1029384 2.16.840.1.126610.3.579.2.608505-87-7536Wfll-vcp536669711PvwmtpwJ61586683Neubddn Other1 (STD)QHGPX0522486 49594fol-403x-1g35-x28q-[id number] 2.16.840.1.710633.3.579.2.797Xisoykw35864795 2.0.1.591973.3.579.2.531 Social History DateTypeDetailFacilityUnknown if ever smokedStillwater YES.TAP Other Start: 02-28-2024 End: 93-42-3303Hyx Assigned At [facility] YES.TAP Other Start: 08-11-3948Tnq Assigned At [facility]ertart: 04-20-2022 End: 39-55-4550Soctoec smoking status NHISNever smoked tobacco (finding) [facility]art: 19-77-7765Kgfpquv use and exposure Smokeless tobacco non-userNOMS HealthcareStart: 02-28-2024 End: 25-27-1164Oyxtersnj beverage intakeLifetime non-drinker (finding)[facility] HealthcareStart: 02-28-2024 End: 40-69-8664Hiwuqrx of Social functionSaint John's Health SystemStart: 97-57-9661Phpjrh identityIdentifies as female gender (finding)[facility] HealthcareSexFemale (finding) [facility]tart: 68-57-5296PtlWqvkblALXBMUSC Health [facility] Clinical Notes 11-04-2022 to 05-03-2025 Note Date & NkbqKwxsBjezaxyj22-43-3695 [facility] Chief Complaint: [...] dizziness. She did see one of our director of medicare Dr. Guevara and they discussed the potential [...] Paroxysmal tachycardia (CMS/HCC), Prinzmetal angina, and WPW (Cqbxp-Tjaoodeoz-Mrnpe syndrome). Surgical History She has a past [...] to pulmonary hypertension and/o (more content not included)...[facility] 07-27-2023 Evaluation note* Encounter Date Diagnosis Assessment Notes Treatment Notes Treatment Clinical Notes Jul, Abnormal mammogram (ICD-10 - R92 .8) [facility] [employer] Other 09-19-2023 Evaluation note* Encounter Date Diagnosis Assessment Notes Treatment Notes Treatment Clinical Notes Jun, Abnormal mammogram of right rae st (ICD-10 - R92.8) [place] YES.TAP Other 09-12-2023 Evaluation note* Encounter Date Diagnosis Assessment Notes Treatment Notes Treatment Clinical Notes Jun, Screening mammogram for breast c ancer (ICD-10 - Z12.31) [facility] [employer] Other 01-11-2023 NoteCARDIAC STRESS TEST Requesting Physician: [...] information. 7. Clinical correlation is recommended.[facility] ClinicEvaluation noteNo InformationNocooper county memorial hospital YES.TAP Other Evaluation noteNo assessment information available [facility] Work Phone: Evaluation note* Diagnosis Onset Date Resolution Status Bilateral hip pain acute [facility] Work Phone: Evaluation note* Diagnosis Abnormal MRI- [...] CERVICAL DISORDERSurgical Historyarthroscopy twice-2006,2008; rhinoplasty Surgical Historylap-hystoscopy, d&c7355Ctxoltzx HistoryhysterectomySurgical Historybone marrow adzevbgj7630Uctknkcumnxitge Historysee above [employer] Other History general Narrative - Reported* Type [...] Title : Outpatient,Surgical HistoryProblem Title : 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 SURGERIES: Right knee arthroscopy, Problem Status : [...] Ligation, Problem Status : Active,Hospitalization Historysee above [employer] Other Reason for referral (narrative)No reason for referral information availableWilson Health Work Phone: Summary Purpose Family History No Family History Records Found Relationship Condition Age at Onset Recorded Date/T porfirio father Hypertension Unknown Heart diseaseUnknownHistory of strokeUnknownmotherHypertensionUnknown Advance Directives No Advanced Directives Records Found Advance Directive Response Recorded Date/ Time Advance Directives No August 9:55am Advance Directive Response Recorded Date/ Time Advance Directives No August 10:55am Hospital Course Note MR#: [id number] [facility] Pt. Name: Elvia Fox Admitted: 06/16/2019 Discharged: 06/17/2019 Date of : 1975 Physician: Alessandro Lin MD DISCHARGE SUMMARY PRIMARY DIAGNOSES: 1. Typical chest pain with abnormal stress test. Post heart catheterization, which demonstrated no significant coronary artery stenosis. 2. Major depressive disorder. 3. Lower end of normal T4 with normal TSH. 4. Itgiw-Mhpttjrah-Vfpvp. HOSPITAL COURSE: The patient is a 43-year-old [...] and content) DATE CREATED AUTHOR 09/18/2019 [facility] DATE CREATED AUTHOR AUTHOR'S ORGANIZ ATION 03/07/[address] [facility] DATE CREATED AUTHOR AUTHOR'S ORGANIZ ATION 10/14/2023 [facility] DATE CREATED AUTHOR AUTHOR'S ORGANIZ ATION 10/11/2024 [facility] EPIC DATE CREATED AUTHOR AUTHOR'S ORGANIZ ATION 08/28/2025 [facility] REASON FOR VISIT (unrecogniz ed section [...] DateEnd Date Pat Huston MD [address] [place] [address] PCP - General02/27/24Team MemberRelationshipSpecialtyStart DateEnd Date Pat Huston MD [address] [place] [address] PCP - General02/27/24 Jl Aguilar DO [address] [id number] Referring CjpimrqcyEtdykwucn01/16/24 Team Status: Inactive Member Role Status Dates Pat Huston MD Primary Care Provider Active Start: May 24, 2025 End: May 24Alicja Coleman ProviderActiveStart: May 24, 2025 End: May 24, 2025Team MemberRelationshipSpecialtyStart DateEnd Date Pat Huston MD PCP - General02/27/24 Harlan Niño NP PCP - [employer]// Jl Aguilar DO [address] [place] [address] Referring PkruuqdpvLewpzqvph45/16/24 Goals (unrecognized section and content) Goals may [...] BE BASED ON THE PRIMARY CLINICAL RECORDS. [employer] [facility]. provides no warranty or guarantee of the accuracy or completeness of information in this document.
--- OUTSIDE RECORDS SUMMARY | 2025-09-19 06:46 | XMS_ITS | Patient Health Record ---
Author Organization [facility] in [place] Address [address] [place] [address] Care Team Providers Care Die Finisher Forging Name Role Phone Pat Dominique MD Primary Care Provider UnavailRudolph Sun Unavailable [phone] Allergies Allergen (clinical drug ingredient) Drug/Non Drug Allergy documented on EMR Reaction Allergy Type Onset Date Status Darvocet-N 100vomitingDrug AllergyActivemeperidineDemerolvomitingDrug Allergy ActiveLevaquinhivesDrug AllergyActiveacetaminophen / oxycodonePercocetvomiting Drug AllergyActive Results Component Value Reference Range Notes XR Chest PA and Lateral (Rou ye CXR) * Reviewed date:01/18/2025 01:36:46 PM Interpretation: Performing Lab: Notes/Report: RT pulmonary function test Reviewed date:01/25/2025 04:34:13 PM Interpretation: Performing Lab: Notes/Report: Source Facility: [place] [address] [place] [address] Respiratory Report Signed Patient: ELVIA GUTIÉRREZ MR#: [id number] : 1975 Acct:[id number] Age/Sex: 49 / F ADM Date: 01/18/25 Loc: RAD Attending Dr: Rudolph Gonsalves D.O. Ordering Physician: Rudolph Gonsalves D.O. 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 Ordering Physician: Rudolph Gonsalves D.O. Date of Service: 01/18/25 Procedure(s): XR chest 2V Accession Number(s): [id number] cc: Pat Dominique M.D.; Rudolph Gonsalves D.O. [place] [address] Patient Name: ELVIA GUTIÉRREZ MRN: [id number] date: 1975 Sex: F Assigned Patient Location: RAD Current Patient Location: [facility] Accession/Order Number: [id number] Exam Date: 01/18/2025 13:05 Report Date: 01/18/2025 13:06 At the request of: RUDOLPHHUGO GONSALVES Procedure: XR chest 2V Plain film chest [...] Sina Ruiz M.D.01/18/2025 1:06 PM Dictation Location: [place] [address] Electronically authenticated by: [id number] Y Date: 01/18/2025 13:06 Dictated By: Sina Ruiz D.O. Signed By: 01/18/25 1309 DD/ 1306 TD/TT: Mail Processing Equipment Mechanic: HEMOGLOBIN Reviewed date:01/23/2025 07:30:06 AM Interpretation: Performing Lab: Notes/Report: [facility] , Hemoglobin 13.5 12.0-16.0 g/dL Performing Lab:see noteML - [facility] LB Reason For Referral No Information Medications [...] Administration Date Status Comme nts Flu, Flucelvax (04361) 6 mos and older, single-dose syringe (7360-9162) Unknown 08/16/2024 Administered SARS-COV-2 (COVID 19 Moderna - Booster 0.25mL)Vqjoktg1808/20/2021dministered Social History Tobacco Use: Social History Observation Description Date Details (start date - stop date) Never Smoker NA - NA Tobacco Control (Standard) Question Answer Notes Tobacco use: Nonsmoker Problems Problem Type SNOMED Code ICD Code Onset Dates Problem Status W/U Status Risk Notes Problem Shortness of breath (565260295) Shortness of breath (R06.02) ActiveconfirmedProblemHyperlipidaemia (95973442)HLD (hyperlipidemia) (E78.5) Activeconfirmed Vital Signs Heart Rate 66 /min 01/23/2025 Shwlhzvmuhj34.0 degrees Gwcadqigky56/01/2025Respiratory Rate18 /min01/23/2025 Blood pressure zzvvnocix56 mm Hg01/23/20254958Pkpnxxfe60 %01/23/20255142Fucdsx22 in 01/23/2025lood pressure nmaqtbha791 mm Hg01/23/20259494Mneyeh357.6 lbs01/23/2025MI 35.04 kg/m201/23/2025 Procedures Procedure Date Ordered Date Performed Result Body Sit e PFT (21198, 51482, 12403) 12/27/2024 01/18/2025 N/A Encounters Encounter Location Date Provider Diagnosis [facility] [place] [address] [place] [address] 01/23/2025 Rudolph Gonsalves Abnormal results of pulmonary function studies R94.2 and Patent foramen ovale Q21.12 [facility] [place] [address] [place] [address] 12/27/2024 Rudolph Gonaslves Abnormal results of pulmonary function studies R94.2 [...] and cardiopulmonary vascular disease. A PFO with okura-nm-lptd shunt could cause a decreased DLCO. No [...] ACCESS PPO PLUS LOCAL PLAN [address] [place] [phone] [id number] Kwasi Gutiérrez - patient is the insured Medical (General) History Medical History History ICD Code PFO (patent foramen ovale) Q21.12 Abnormal diffusion capacity determined b y pulmonary function test R94.2 HLD (hyperlipidemia) E78.5 Surgical History Surgery Date(Month/Year) hysterectomy tubal ligationright knee arthroscopyrhinoplasty
--- OUTSIDE RECORDS SUMMARY | 2025-09-19 06:46 | XMS_ITS | Clinical Summary ---
Author Organization [facility] Address [address] [place] [address] Care Team Providers Care Floor Covering Printer Name Role Phone Pat Dominique MD Primary Care Provider [phone] Nell Aguilar DO Unavailable [phone] Allergies Active AllergyReactionsCriticalityNoted DateCommentsMeperidine HclGI intolerance 02/25/2024Oxycodone-AcetaminophenGI qsgoikzdnxi2024 Medications MedicationSigDispense QuantityRefillsLast FilledStart DateEnd DateStatus buPROPion [...] tablet Take 40 mg by mouth at ihxgpwj7612/01/2023ctive nitroglycerin (Nitrostat) 0.[address] 0.4 mg under the tongue every 5 (five) minutes if needed for chest pain Active Active Problems ProblemNoted DateDiagnosed DatePrimary fekhgymu91/06/2024Tension-type headache, not fddnxlgrkoz30/06/3991Pysyeo81/06/2837Ognqcjl57/06/2024Eye exam abnormal 02/25/2024bnormal MRI02/25/20246342Qsltqgkbya2024Intractable tension-type gsejrhcn25/03/2024erebrovascular etogvgb9102/25/2024 Family History Medical HistoryRelationNameCommentsCoronary artery diseaseFatherHyperlipidemia FatherStrokeFatherHyperlipidemiaMotherHypertensionMotherOsteoarthritisMother CancerSisterHyperlipidemiaSisterKidney diseaseSisterOsteoarthritisSisterRelation NameStatusCommentsFatherMotherSister Social History Tobacco UseTypesPacks/DayYears UsedDateSmoking Tobacco: NeverSmokeless Tobacco: Never Tobacco Cessation:Counseling Given: Not Answered Alcohol UseStandard Drinks/WeekCommentsNever0 (1 standard drink = 0.6 oz pure alcohol)CommentsUnknownSex and Gender InformationValueDate RecordedSex Assigned at EufuaEllhbh60/05/2024 3:50 PM EDTLegal SenEbvyin89/15/2023 7:17 PM EDTGender GxuypbioTenblj24/05/2024 3:50 PM EDTSexual OrientationNot on file Last Filed Vital Signs Vital SignReadingTime TakenCommentsBlood Jeplhrsh654/6810/09/2024 11:00 AM EST Snkof305810/09/2024 11:00 AM ESTTemperature--Respiratory Rate--Oxygen Saturation 98%10/09/2024 11:00 AM ESTInhaled Oxygen Concentration--Wtyudo72.2 kg (214 lb 4 oz)10/09/2024 11:00 AM NHJNpmpch856.1 cm (5' 5 )10/09/2024 11:00 AM ESTBody Mass Index35.6510/09/2024 11:00 AM EST Plan of Treatment Not on file Insurance Care Teams Team MemberRelationshipSpecialtyStart DateEnd Date Pat Dominique MD PCP - General02/27/24 Nell Aguilar DO [address] [place] [address] Referring IlmocqbafBoqvdndba65/16/24
--- OUTSIDE RECORDS SUMMARY | 2025-09-19 06:46 | XMS_ITS | Encounter Summary ---
Author Organization [facility] Address [address] [place] [address] Care Team Providers Care Bobbin Fixer Name Role Phone Pat Dominique MD Primary Care Provider [phone] Encounter Details DateTypeDepartmentCare Team (Latest Contact Info)Stlcnomvtkf65/19/2025Telephone [facility] [address] [place] [address] Maria Dolores Jose MA Social History Tobacco UseTypesPacks/DayYears UsedDateSmoking Tobacco: NeverSmokeless Tobacco: NeverAlcohol UseStandard Drinks/WeekCommentsNot Currently0 (1 standard drink = 0.6 oz pure alcohol)[place] Safety & EnvironmentAnswerDate RecordedFear of Current or Ex-PartnerNot on file12/16/2023Emotionally AbusedNot on file12/16/2023hysically AbusedNot on file12/16/2023Sexually AbusedNot on file12/16/2023hysically or Sexually AbusedNot on file12/16/2023CommentsNoSex and Gender Information ValueDate RecordedSex Assigned at BirthNot on fileLegal AxmIqvggi94/29/2022 10:21 PM EDTGender IdentityNot on fileSexual OrientationNot on filedocumented as of this encounter Miscellaneous Notes * Telephone Encounter - Maria Dolores Jose MA - 09/12/2025 8:35 AM EST Patient had repeat BMP drawn this morning. In manager media for your review. She said since stopping hydrochlorothiazide last week she has been more SOB and has had more LE edema. Please advise. Thanks. documented in this encounter Plan of Treatment Not on file documented as of this encounter Visit Diagnoses Not on filedocumented in this encounter Care Teams Team MemberRelationshipSpecialtyStart DateEnd Date Pat Dominique MD [address] [facility] PCP - Olubljq28/2/22documented as of this encounter
--- OUTSIDE RECORDS SUMMARY | 2025-09-19 06:46 | XMS_ITS | Clinical Summary ---
Author Organization [employer] [facility] Address [facility] [address] [place] [address] Care Team Providers Care Party Plan Salesperson Name Role Phone Pat Dominique MD Primary Care Provider [phone] Allergies Active AllergyReactionsCriticalityNoted DateCommentsPropoxyphene N-Acetaminophen Mpasswrf20/28/7173VzuvpdhnbeevDdakp12/28/4732GdwzlexoxoVunbddjt57/21/2014 Oxycodone-XbgtvkekvjdogBegpaqnu30/21/2014 Medications MedicationSigDispense QuantityRefillsLast FilledStart DateEnd DateStatus buPROPion [...] UseTypesPacks/DayYears UsedDateSmoking Tobacco: NeverSmokeless Tobacco: NeverPHQ-2AnswerDate RecordedTotal Pskhj294/10/2022ChildcareAnswerDate Recorded XtkcdajbqPkjyblm94/10/2019EmploymentAnswerDate RecordedEmploymentUnknown 04/03/2019CommentsUnknownSex and Gender InformationValueDate RecordedSex Assigned at BirthNot on fileLegal SsrCdeqve50/04/2015 2:10 PM EDTGender Identity Not on fileSexual OrientationNot on file Last Filed Vital Signs Vital SignReadingTime TakenCommentsBlood Cvwzlxcp617/7708 10:39 AM EDT Xjqof256206/03/2022 10:39 AM EDTTemperature--Respiratory Rate--Oxygen Saturation-- Inhaled Oxygen Concentration--Wmxxft39.1 kg (214 lb)06/03/2022 10:39 AM EDT Enfdsa545.6 cm (5' 4 )06/03/2022 10:39 AM EDTBody Mass Index36.7306/03/2022 10:39 AM EDT Plan of Treatment Health MaintenanceDue DateLast DoneCommentsDepression Ykprdjzuj60/10/1989Tobacco Gqjpacdxq98/10/1989Adult BMI Kolgsktal32/10/1995DTaP,Tdap and Td Vaccines (1 - Tdap)1996Pap Smear1998COVID-19 Vaccine ( - 2024- season) 510/, 11/21/2020, 10/23/2020Influenza Fybzpem6406/25/2025 08/19/2018 Medical Devices Not on file Insurance Care Teams Team MemberRelationshipSpecialtyStart DateEnd Date Pat Dominique MD [facility] [place] [address] PCP - GeneralFamily Nqbrgonm09/28/21
--- OUTSIDE RECORDS SUMMARY | 2025-09-19 06:46 | XMS_ITS | Clinical Summary ---
Author Organization [facility] Address [address] [place] [address] Care Team Providers Care Operator Receptionist Name Role Phone Amos Vazquez MD Primary Care Provider [phone] Addie Mojica RN Unavailable [phone] Allergies Active AllergyReactionsCriticalityNoted DateCommentsPropoxyphene N-Acetaminophen Exypxisa45/21/0877WxqpsaskojOlrmnuyn72/21/2014Oxycodone-AcetaminophenVomiting 12/15/2013 Medications MedicationSigDispense QuantityRefillsLast FilledStart DateEnd DateStatus PRISTIQ 50 mg 24 hr tablet Take 50 mg by mouth once daily.12/14/2013ctive HYDROcodone-acetaminophen 5-325 mg per tablet Take 1-2 tablets by mouth every 6 hours as needed for Pain. 30 tablet ctive Active Problems ProblemNoted DateDiagnosed JmgmRnthzm28/05/2014 Assessment & Plan (12/27/2013 11:30 AM EST): [...] InformationValueDate RecordedSex Assigned at BirthNot on fileLegal TuuJxkcgq87/02/2012 8:55 AM ESTGender Identity Not on fileSexual OrientationNot on fileOccupationIndustryJob Start DateJob End DateCardiovascular TechNot on fileNot on fileNot on file Last Filed Vital Signs Vital SignReadingTime TakenCommentsBlood Lkjnedwx723/6903 2:10 PM EDT Fyrom2819 2:10 PM DJQYxvhxqwluub51.8 ??C (98.2 ??F)01/16/2014 2:10 PM EDTRespiratory Otod9844 2:10 PM EDTOxygen Uyszswgfxp85%01/16/2014 2:10 PM EDTInhaled Oxygen Concentration--Vxlxwe93 kg (200 lb 9.9 oz)01/16/2014 2:10 PM QIOTeybxh507 cm (5' 4.96 )01/16/2014 2:10 PM EDTBody Mass Index33.42 01/16/2014 2:10 PM EDT Plan of Treatment Health MaintenanceDue DateLast DoneCommentsAnxiety Hvxelpgjp28/10/1995Depression Xpasbquud05/10/1995Hepatitis C Mcghtuunb45/10/1995DTaP,Tdap,Td Vaccine (1 - Tdap)1996Hepatitis B Vaccine (1 of 3 - 19+ 3-dose series)1996 Cervical Cancer Bhxbxegoo56/10/1998Mammogram Nhrehmohp02/10/2017CT Colonography 2Cologuard (FIT-DNA)9257Coolexmoinb96/10/2022Colorectal Cancer Zspkewnzz21/10/2022Diabetes Ulxlevqiz29, 12/15/2013Fecal Occult Blood2022Lipid Jwbmskwvl29/10/0543Ubedjppllvgou25/10/2022Covid-19 Vaccine ( - season)2025Influenza Vaccine (#1)2025HIV LxsrricrmNmdqmpkxa13/21/2014 Procedures Procedure NamePriorityDate/TimeAssociated DiagnosisCommentsCOMPREHENSIVE METABOLIC BIECTUicppvk09/05/2014 8:48 AM EST Bone marrow donor IDM PANEL GYNUDUgflkjv89/21/2014 12:10 PM EST Bone marrow donor from Last 3 Months or Most Recently Relevant to Health Maintenance Results * (ABNORMAL) COMP METABOLIC PANEL (12/27/2013 8:48 AM EST)ComponentValueRef RangeTest MethodAnalysis TimePerformed AtPathologist SignatureProtein, Total 7.06.0 - 8.4 g/dLUNIVERSITY [facility]ITALS [facility] MAIN LABORATORYAlbumin4.03.5 - 5.0 g/dL [facility] MAIN LABORATORYCalcium9.08.5 - 10.5 mg/dLUNIVERSITY [facility]ITALS [facility] MAIN LABORATORYBilirubin, Total0.40.0 - 1.5 mg/dLUNIVERSITY [facility]ALS [facility] LABORATORYAlkaline Ejwpzzvohbq5253 - 150 U/LCMEMORIAL HEALTH [facility] MAIN LABORATORY OPK915 - 40 U/LCMARION HOSPITAL IUGUKSBDVIEdiuaph85(L)65 - 100 mg/dL [facility] LABORATORYBUN7(L)8 - 25 mg/dLUNIVERSITY H[facility]ALS [facility] LABORATORYCreatinine0.810.70 - 1.40 mg/dLUNIVERSITY [facility]ALS [facility] LABORATORY Gnmxnp579024 - 148 mmol/LCMARION HOSPITAL LABORATORYPotassium4.03.5 - 5.0 mmol/LCMEMORIAL [facility] MAIN GWXFLKKFMUXmbouidt40436 - 110 mmol/LCMARION HOSPITAL XAHYFQAJVRLG08651 - 32 mmol/LCMARION HOSPITAL LABORATORYAnion Gap70 - 15 mmol/LCMARION HOSPITAL DNEKFNZPPGCAS846 - 45 U/LCMARION HOSPITAL LABORATORYeGFR->60[facility] LABORATORY eGFR-All Other Races>60.[facility] LABORATORYComment: eGFR (Estimated GFR) Units of [...] StatusRegis Cr MDLABORATORYFinal ResultPerforming OrganizationAddressCity/State/ZIP CodePhone Number [facility] LAB[facility]ORY [address] [place] [address] * (ABNORMAL) IDM PANEL ADULT (12/15/2013 12:10 PM EST)ComponentValueRef Range Test MethodAnalysis TimePerformed AtPathologist SignatureHBsAgNegative or NonreactiveNEGNRUNIVERSITY HOSPITALS [facility]EV[facility] LABORATORYanti-HCVNegative or NonreactiveNEGNRUNIVERSITY HOS[facility]ITALS [facility] LABORATORYanti-HIV1/2Negative or NonreactiveNEGNRUNIVERSITY HOS[facility]ITALS [facility] LABORATORYanti-HBcNegative or NonreactiveNEGNRCLEVELAND CLINIC MAIN LABORATORYanti-HTLV I/IINegative or NonreactiveNEGNRUNIVERSITY [facility]ALS [facility] MAIN LABORATORYSTSNegative or Nonreactive NEGSUMMA [facility] LABORATORYCMVPositive or Reactive(A)NEGSUMMA HEALTH BARBERTON [facility]AMP[facility] LABORATORYHIVNATNegative or NonreactiveNEGSUMMA HEALTH [facility]BERT[facility] LABORATORYHCVNATNegative or NonreactiveNEGSELECT [facility] MAIN LABORATORY HBVNATNegative or NonreactiveNEGSUMMA HEALTH [facility]BERT[facility]AMP[facility] LABORATORYWNVNAT Negative or NonreactiveNEGSUMMA HEALTH [facility] LABORATORYChagasNegative or NonreactiveNEGSUMMA HEALTH BARBERT[facility]AMP[facility] LABORATORYExpiration of [id number] Test kits are FDA approved for Donor Screening Testing. Test performed by: [facility], [address] [place] [id number], CLIA No. [id number].[facility] LABORATORYSpecimen (Source)Anatomical Location / LateralityCollection Method / VolumeCollection TimeReceived TimeBlood specimen (specimen)BLOOD SPECIMEN / Imsjkyd8912/15/2013 12:10 PM EST12/15/2013 12:16 PM EST Narrative Authorizing ProviderResult TypeResult StatusAamiguel angel Cr MDLABORATORYFinal ResultPerforming OrganizationAddressCity/State/ZIP CodePhone Number [facility] [address] [place] [address] from Last 3 Months or Most Recently Relevant to Health Maintenance Insurance * Guarantor: Elif Gutiérrez TypeRelation to PatientDate of BirthPhone Billing AddressPersonal/JezvibYjpv1975 [address] [address] * Guarantor: Gutiérrez, Elif AAccount TypeRelation to PatientDate of BirthPhone Billing JaccfpbNefeaSerp1975 [address] [address] Care Teams Team MemberRelationshipSpecialtyStart DateEnd Amos Vazquez MD PCP - GeneralFamily Medicine11/15/13 Addie Mojica, BELÉN [address] [place] [address] Registered NurseBlood and Marrow Transplant12/06/13
--- OUTSIDE RECORDS SUMMARY | 2025-09-19 06:46 | XMS_ITS | Clinical Summary ---
Author Organization [facility] Address [address] [place] [address] Care Team Providers Care Casting Machine Adjuster Name Role Phone Pat Dominique MD Primary Care Provider [phone] Allergies Active AllergyReactionsCriticalityNoted QerfMjzrrxndZnznhyxerehvGuxwr29/28/2021 MeperidineGI intolerance,Other12/15/2013Oxycodone-AcetaminophenOther,GI ylrqynuseka03/21/2014Propoxyphene N-AcetaminophenOther,GI wnmpepthkbk93/21/2014 Medications MedicationSigDispense QuantityRefillsLast FilledStart DateEnd DateStatus buPROPion XL (Wellbutrin XL) 300 mg 24 hr tablet Take 300 mg by mouth in the morning.Active DULoxetine (Cymbalta) [address] capsule Take 30 mg by mouth in the morning.Active hydroCHLOROthiazide (HYDRODiuril) 25 mg tablet Indications:Essential hypertensionTAKE 1 TABLET BY MOUTH IN THE MORNING 90 tablet 5Active clopidogrel (Plavix) 75 mg tablet Indications:Coronary artery disease of quinault artery of quinault heart with stable angina pectorisTAKE 1 TABLET BY MOUTH ONCE DAILY DIRECTED 90 tablet 5Active metoprolol tartrate (Lopressor) 25 mg tablet Indications:Coronary artery disease of qu[place] artery of qu[place] heart with stable angina pectorisTAKE 1 TABLET [...] 40 mg tablet Indications:Coronary artery disease of quinault artery of quinault heart with stable angina pectorisTAKE 1 TABLET [...] tablet /ctive Active Problems ProblemNoted DateDiagnosed DatePrimary prtbivji30/06/2718Wuedkq48/06/2024Vertigo 02/28/2024bnormal MRI02/25/20249328Jqyfxgrzhn47/03/2024erebrovascular disease 02/25/2024Eye exam towsiipo32/03/2024Tension type crlyfsqf53/03/2024hest pain 12/07/2022 Overview (12/07/2022): Added automatically from request for surgery [id number] Paroxysmal /06/2020Prinzmetal qtukhz6805/30/20209851Tzqyn-Wpmmrapua-Liibd dfmjpiw8605/30/20203301Xaviix26/05/2014 Overview (09/25/2022): Last Assessment & Plan: She [...] for the next 7 days. Encounters DateTypeDepartmentCare MwtvOyeotgpbdnc07/19/2025Orders Only [facility] [address] [place] [address] Maria Dolores Jose MA Essential hypertension (Primary Dx)09/12/2025Telephone [facility] [address] [place] [address] Maria Dolores Jose MA 09/06/2025Telephone [facility] [address] [place] [address] Maria Dolores Jose MA 08/28/2025Orders Only [facility] [address] [place] [address] Maria Dolores Jose MA Hypokalemia (Primary Dx)08/27/2025Telephone [facility] [address] [place] [address] Maria Dolores Jose MA from Last 3 [...] ValueDate RecordedSex Assigned at BirthNot on fileLegal JceCfqjwi91/29/2022 10:21 PM EDTGender IdentityNot on fileSexual OrientationNot on file Last Filed Vital Signs Vital SignReadingTime TakenCommentsBlood Fuaibvum240/7207 9:25 AM EDT Rgcpc8597 9:25 AM EDTTemperature--Respiratory Isly8837 3:30 PM ESTOxygen Ixpsolqprg42%05/03/2025 9:25 AM EDTInhaled Oxygen Concentration-- Rmkdvn15.3 kg (208 lb)05/03/2025 9:25 AM CWACtyyxk057.6 cm (5' 6 )05/03/2025 9:25 AM EDTBody Mass Index33.5707 9:25 AM EDT Plan of Treatment Health MaintenanceDue DateLast DoneCommentsCT Lfhhumhffouy1977Colonoscopy 1977Colorectal Cancer Kytlhknno1977FIT-DNA1977FIT1977 FOBT1977 8359Sqvahxdfkchps1977Depression Jcpuetkxg12/10/1989Hepatitis B Vaccines (1 of 3 - 19+ 3-dose series)1996Pneumococcal Vaccine: Pediatrics (0 to 5 Years) and At-Risk Patients (6 to 64 Years) (1 of 2 - PCV)1996Pap Smear1998Adult Gvipanx1709/03/1999Cervical Cancer Ijvijydue54/10/2007 HPV/Iwnxnp7709/03/20071027Alpjgmrqk15/10/2017COVID-19 Vaccine ( season) , 11/21/2020, 10/23/2020Influenza Vaccine [...] DateEnd Date Pat Dominique MD [address] [facility] #A PCP - Ccufslg36/2/22
--- OUTSIDE RECORDS SUMMARY | 2025-09-19 06:46 | XMS_ITS | Encounter Summary ---
Author Organization [facility] Address [address] [place] [address] Care Team Providers Care Environmental Consultant Name Role Phone Pat Dominique MD Primary Care Provider [phone] Encounter Details DateTypeDepartmentCare Team (Latest Contact Info)Vhnpxbquihx47/19/2025Orders Only [facility] [place] [address] [place] [address] Maria Dolores Jose MA Essential hypertension (Primary Dx) Social History Tobacco UseTypesPacks/DayYears UsedDateSmoking Tobacco: NeverSmokeless Tobacco: NeverAlcohol UseStandard Drinks/WeekCommentsNot Currently0 (1 standard drink = 0.6 oz pure alcohol)[place] Safety & EnvironmentAnswerDate RecordedFear of Current or Ex-PartnerNot on file12/16/2023Emotionally AbusedNot on file4Physically AbusedNot on file12/16/2023Sexually AbusedNot on file4Physically or Sexually AbusedNot on file4CommentsNoSex and Gender Information ValueDate RecordedSex Assigned at BirthNot on fileLegal IzvHljiro95/29/2022 10:21 PM EDTGender IdentityNot on fileSexual OrientationNot on filedocumented as of this encounter Plan of Treatment NameTypePriorityAssociated DiagnosesOrder ScheduleBasic metabolic panelLab Routine Essential hypertension Expected: 09/12/2025 (Approximate), Expires: 09/12/2026documented as of this encounter Visit Diagnoses Diagnosis Essential hypertension- Primary Unspecified essential hypertension documented in this encounter Care Teams Team MemberRelationshipSpecialtyStart DateEnd Date Pat Dominique MD [address] [facility] #A PCP - Zykqflp62/2/22documented as of this encounter
--- OUTSIDE RECORDS SUMMARY | 2025-09-19 06:46 | XMS_ITS | Encounter Summary ---
Author Organization [facility] Address [address] [place] [address] Care Team Providers Care Tumbler Tender Name Role Phone Pat Dominique MD Primary Care Provider [phone] Encounter Details DateTypeDepartmentCare Team (Latest Contact Info)Itonpnaooku33/13/2025Telephone [facility] [address] [place] [address] Maria Dolores Jose MA Social History Tobacco UseTypesPacks/DayYears UsedDateSmoking Tobacco: NeverSmokeless Tobacco: NeverAlcohol UseStandard Drinks/WeekCommentsNot Currently0 (1 standard drink = 0.6 oz pure alcohol)[place] Safety & EnvironmentAnswerDate RecordedFear of Current or Ex-PartnerNot on file12/16/2023Emotionally AbusedNot on file12/16/2023hysically AbusedNot on file12/16/2023Sexually AbusedNot on file12/16/2023hysically or Sexually AbusedNot on file12/16/2023CommentsNoSex and Gender Information ValueDate RecordedSex Assigned at BirthNot on fileLegal GdsYukpsf44/29/2022 10:21 PM EDTGender IdentityNot on fileSexual OrientationNot [...] She will repeat labs. BMP faxed to [facility]. documented in this encounter Plan of Treatment NameTypePriorityAssociated DiagnosesOrder ScheduleBasic metabolic panelLab Routine Hypokalemia Expected: 09/06/2025 (Approximate), Expires: 09/06/2026documented as of this encounter Visit Diagnoses Diagnosis Hypokalemia- Primary Hypopotassemia documented in this encounter Care Teams Team MemberRelationshipSpecialty[place] [address] [place] [address] #A PCP - Vcrhrpj94/2/22documented as of this encounter
[2025-09-19 07:25] LABS: Anion Gap 10.4; Blood Urea Nitrogen 10.0 mg/dL (7.0-18.0); Calcium 8.8 mg/dL (8.5-10.1); Carbon Dioxide 30.7 mmol/L (21.0-32.0); Chloride 102 mmol/L (98-107); Estimated GFR (African America 58 (>=60 mL/min/1.73m^2); Estimated GFR (Non-African Ame 48 (>=60 mL/min/1.73m^2); Glucose 97 mg/dL (74-106); Potassium 3.1 mmol/L (3.5-5.1); Sodium 140 mmol/L (136-145)
== END 2025-09-19 06:43 | disposition home or self-care (01) ==
LOC: LAB 06:43
PROVIDERS: PCP Family Medicine; Visit Provider Internal Medicine Interventional Cardiology
DX: I10 Essential (primary) hypertension (principal)
CPT/HCPCS: 36415; 80048

== ENCOUNTER 2025-09-25 06:53 | Outpatient (OUT) | payer BC, SELFPAY ==
--- OUTSIDE RECORDS SUMMARY | 2025-09-25 06:57 | XMS_ITS | CCD ---
Author Organization [facility] Care Team Providers Care Grinder Set Up Operator Thread Tool Name Role Phone ALESSANDRO LIN Admitting Unavailable ALESSANDRO LIN Attending Unavailable PAT HUSTON Referring Unavailable ROBEL, PAT Primary Care Unavailable Pat Huston Unavailable ROBEL, DR PAT Kumari Admitting Unavailable HUSTON, DR PAT Kumari Attending Unavailable HUSTON, DR PAT Kumari Primary Care Unavailable BRIELLE, DR NILESH Foy Consulting Unavailable HUSTON, DR PAT Kumari Consulting Unavailable HUSTON, DR PAT uKmari Admitting Unavailable HUSTON, DR PAT Kumari Attending [...] Kumari Primary Care Unavailable HUSTON, DR PAT Kmuari Consulting Unavailable ELTAHAWY, DR BROOKS Admitting Unavailable ELTAHAWY, DR BROOKS Attending Unavailable HUSTON, DR PAT Kumari Primary Care Unavailable ELTAHAWY, DR BROOKS Consulting Unavailable ZIEBER, DR EDILSON Basilio Consulting Unavailable MD Pat Hsuton Primary Care Provider [phone] MD Pat Huston Attending Provider [phone] Pat Huston Admitting Unavailable Pat Huston Primary Care Unavailable Pat Huston Attending Unavailable Kevon Samuel Admitting Unavailab Kevon Morejon Attending Unavailab Pat Mcgovern Primary Care Unavailable Pat Huston MD Primary Care Provider [phone] Addiedusty PARKS Jl Unavailable HARLAN NIÑO Attending Unavailable HARLAN NIÑO Attending Unavailable Pat Huston MD Primary Care Provider Harlan Niño APRN Attending Provider Pat Huston MD Primary Care Provider Harlan Niño NP Unavailable Addie PARKS Jl Unavailable VIDHI ANDERSON Attending Unavailable Allergies Allergy ClassificationReported Allergen(s)Allergy TypeDate of OnsetReaction(s) Facility (2 sources)Acetaminophen / oxyCODONEDrug Agvnlhw52-31-0355Mnu [facility] Repository (8 sources)levoFLOXacinDrug Nyikrzz39-37-9648ufixjZowKindred Hospital [facility] Rep[facility] (2 sources)MeperidineDrug Ynizlsm73-07-0630Pnv [facility] Repository (2 sources)Darvocet-N 100Drug allergy (disorder)72-98-6783Kma [facility] Repository (6 sources)Acetaminophen / oxyCODONEDrug AllergyUnkImimtekLegacy [facility] emotion.me Other (6 sources)Acetaminophen / PropoxypheneDrug AllergyUnkImimtekCenterpoint Medical Center PostRocket Other (10 sources)Meperidine; Translations: [MEPERIDINE]Drug Yzcosji42-43-2536QhjcqhwUniversity [facility]als [facility] (8 sources)SimvastatinDrug Kuexowx13-99-2169HkgmtkfShelby Memorial Hospital (1 source)Tylenol-Codeine #3Drug allergy (disorder)[facility] Repository (5 sources)Allergies ReconciledPropensity to adverse reactionsUnknownNorth PostRocket Other (5 sources)patient allergy list reviewed by nurse or physiciaPropensity to adverse hgfdcceuk97-72-8313Xecfqog:[facility] [employer] Other (5 sources)Darvocet A500 *ANALGESICS - OPIOID*Propensity to adverse reactions 91-82-4259CazumiiYpqdq [employer] Other (2 sources)Acetaminophen; Translations: [acetaminophen]Drug Wmxbdpe14-07-0569 [facility] (5 sources)levoFLOXacin; Translations: [levofloxacin]Drug Icodwcj19-57-4918NhlbdMercy Health West Hospital (4 sources)oxyCODONE; Translations: [oxycodone]Drug Zwzlixz05-80-2385YbzonfelOur Lady of Mercy Hospital (4 sources)Propoxyphene; Translations: [propoxyphene]Drug Bkslpzq56-98-6250 [facility] (1 source)MeperidineDrug Ungbgqs17-87-3478OilogsdchThe [facility] Repository (2 sources)Darvocet A500 *ANALGESICS - OPAllergy to xxanzierm56-81-9687KwhnbMercy Health West HospitalComment on above:Free Text Allergy: Darvocet A500 *ANALGESICS - OPIOID*; Onset Date: 10/27/2016 (5 sources)Acetaminophen / oxyCODONE; Translations: [OXYCODONE-ACETAMINOPHEN] Drug Roxckmg69-73-6355GH intoleranceCapital Region Medical Center (4 sources)MeperidineDrug Dkcgqia34-82-7996RB intoleranceCapital Region Medical Center (1 source)PROPOXYPHENE N-ACETAMINOPHEN; Translations: [PROPOXYPHENE N-ACETAMINOPHEN]Propensity to adverse reactions to drug (disorder)12-15-2013 [facility] Repository Medications Current Medications MedicationDrug Class(es)DatesSig (Normalized)Sig (Original)aspirin 81 mg oral tablet (1 source)Platelet Aggregation Inhibitor, Nonsteroidal Anti-inflammatory Drug Start: 45-54-1658axly 1 tablet by mouth once dailyAspirin 81 mg tablet Active 81 MG PO Daily May 24, 2025 12:00am Complies with drug gpnljqa77 hr buPROPion hydrochloride 300 mg extended release oral tablet (20 sources)AminoketoneStart: 74-77-8144ydkl 1 tablet by mouth once daily in the morningBupropion Hcl (Wellbutrin Xl) 300 mg tablet extended release 24 hr Active 300 MG PO Every morning May 24, 2025 12:00am Complies with drug therapyStart: 08-23-2024 End: 19-01-9595bsxn 1 tablet by mouth twice dailyBupropion Hcl 100 mg tablet Discontinued 100 MG PO Twice daily August 23, 2024 12:00am May 24, 2025 4:19pmStart: 91-05-6081fcJFFGeuh HCl 100MG BuPROPion HCl( 100MG Oral 2 times daily ) Active -Hx Entry Oral 2 times daily for 0 *Pick strength-form from [employer] for eRX* Jun, Activeclopidogrel 75 mg oral tablet (4 sources)P2Y12 Platelet InhibitorStart: 37-55-3017loaz 1 tablet by mouth once dailyClopidogrel (Plavix) 75 mg tablet Active 75 MG PO Daily May 24, 2025 12:00am Complies with drug therapyStart: 12-01-2023 End: 98-10-5462eyzo 1 tablet by mouth once dailyclopidogrel (Plavix) 75 MG tablet Take 75 mg by mouth Daily 12/01/2023 11/30/2024 Frnwjf43 hr dilTIAZem hydrochloride 240 mg extended release oral capsule (20 sources)Calcium Channel BlockerStart: 70-58-6251vpxp 1 mg by mouth every twenty-four hoursDiltiazem Hcl (Cartia Xt) 240 mg capsule,extended release 24hr Active MG PO May 24, 2025 12:00amComplies with drug therapyStart: 08-23-2024 End: 20-94-2609iwrz 1 capsule by mouth once daily, then take 1 capsule by mouth every twenty-four hoursDiltiazem Hcl (Cardizem Cd) 240 mg capsule,extended release 24hr Discontinued 240 MG PO Daily August 23, 2024 12:00am August 23, 2024 11:19amStart: 08-23-2024 End: 17-11-1945qpsy 2 tablets by mouth once dailyDiltiazem Hcl 120 mg tablet Discontinued 120 MG PO Daily August 23, 2024 11:19am May 2454:19pm FreeTextSi tablets Orally daily; Note: Source Status: Takingtotal of 240 mg; Provider: Robel Stewart ( )Start: 08-23-2024 End: 44-52-1754mzkz 2 tablets by mouth once dailyDiltiazem Hcl Discontinued 2 TAB PO Daily August 23, 2024 12:00am August 23, 2024 11:20am FreeTextSi tablets Orally daily; Note: Source Status: Takingtotal of 240 mg; Provider: Robel Stewart ( )Start: 12-01-2023 End: 06-83-8355pdvc 1 capsule by mouth in the morning, then take 1 capsule by mouth every twenty-four hoursdilTIAZem CD (Cardizem CD) 120 MG 24 hr capsule Take 120 mg by mouth in the morning. 12/01/2023 ActiveStart: 75-81-4269qyyk 240 mg by mouth once dailyCardizem CD 240MG Cardizem CD( 240MG Oral daily ) Active - Hx Entry Oral daily for 0 *Pick strength-form from [employer] for eRX* Jun, Activetake 2 tablets by mouth every twenty-four hoursCardizem 120 MG 2 tablets Orally daily total of 240 mg ActiveDULoxetine 30 mg delayed release oral capsule (20 sources)Serotonin and Norepinephrine Reuptake InhibitorStart: 08-23-2024 End: 51-62-8200lklt 1 capsule by mouth once dailyDuloxetine (Cymbalta) 30 mg capsule,delayed release(DR/EC) Active 30 MG PO Daily August 232:00am Complies with drug therapyhydroCHLOROthiazide 25 mg oral tablet (5 sources)Thiazide DiureticStart: 12-01-2023 End: 37-64-6209jijk 1 tablet by mouth once dailyHydrochlorothiazide 25 mg tablet Active 25 MG PO Daily May 24, 2025 12:00am Complies with drug therapy metoprolol tartrate 25 mg oral tablet (5 sources)beta-Adrenergic BlockerStart: 12-01-2023 End: 26-88-7419avsk 1 tablet by mouth once dailyMetoprolol Tartrate 25 mg tablet Active 25 MG PO Daily May 24, 2025 12:00am Complies with drug therapy nitroglycerin 0.4 mg sublingual tablet (5 sources)Nitrate VasodilatorStart: 70-70-1968kbzl 1 tablet under the tongue onceNitroglycerin 0.4 mg tablet, sublingual Active 0.4 MG SUBLINGUAL Once May 24, 2025 12:00am Complies with drug therapynitroglycerin (Nitrostat) 0.[address] 0.4 mg under the tongue every 5 (five) minutes if needed for chest pain Activerosuvastatin calcium 40 mg oral tablet (5 sources)HMG-CoA Reductase InhibitorStart: 12-01-2023 End: 48-86-2194thbk 1 tablet by mouth once dailyRosuvastatin 40 mg tablet Active 40 MG PO Daily May 24, 2025 12:00am Complies with drug therapy Completed/Discontinued Medications MedicationDrug Class(es)DatesSig (Normalized)Sig (Original)citalopram 20 mg oral tablet (7 sources)Serotonin Reuptake InhibitorStart: 08-23-2024 End: 98-27-6779Xiixakpqgo 20 mg tablet Discontinued MG PO August 23, 2024 12:00am May 24, 2025 4:19pm FreeTextSig: Citalopram Hydrobromide( 20MG Oral 2 times daily ) Active -Hx Entry Oral 2 times daily; Note:Source Status: Taking*Pick strength-form from [employer] for eRX*; Provider: Robel Stewart ( )Start: 67-13-1816Emekwayuiw Hydrobromide 20MG Citalopram Hydrobromide( 20MG Oral 2 times daily ) Active -Hx Entry Oral 2 times daily for 0 *Pick strength-form from [employer] for eRX* Jun, Lfpvox03 hr isosorbide mononitrate 60 mg extended release oral tablet (19 sources)Nitrate VasodilatorStart: 08-23-2024 End: 52-62-2826toyb 1 tablet by mouth once daily in the morningIsosorbide Mononitrate 60 mg tablet extended release 24 hr Discontinued 1 TAB PO Daily August 23, 2024 12:00am August 23, 2024 11:20am FreeTextSi tablet in the morning Orally Once a day; Note: Source Status: Pxqqye231 mg; Provider: Robel Stewart ( )Start: 12-01-2023 End: 03-59-1599mgwa 1 tablet by mouth in the morning, then take 1 tablet by mouth every twenty-four hoursisosorbide mononitrate ER (Imdur) 120 MG 24 hr tablet Take 120 mg by mouth in the morning. 12/01/2023 ActiveStart: 06-26-2022 Imdur 120MG Imdur( 120MG Oral ) Active -Hx Entry Oral for 0 *Reorder from [facility] for eRx and Interaction Alerts* Jun, Activetake 1 tablet by mouth once daily in the morningImdur 60 MG 1 tablet in the morning Orally Once a day 120 mg Active Problems Active Problems Problem ClassificationProblemDateDocumented DateEpisodic/ChronicAnxiety disorders (6 sources)Generalized anxiety disorder; Translations: [Generalized anxiety disorder]ChronicConduction disorders (5 sources)Pre-excitation syndrome; 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]Onset: 70-09-8311WwvkgsiKqulsgwsc of lipid metabolism (9 sources)Hyperlipidemia, unspecified; Translations: [Hyperlipidemia]Onset: 91-41-9561TwelsaaQcxcg of unknown origin (5 sources)Fever, unspecified; Translations: [Fever]EpisodicHeadache; including migraine (6 sources)Tension-type headache; Translations: [Tension-type headache, unspecified, not intractable]Onset: 500011-95-3033LxpwugeTgnobunzv disorders (10 sources)Excessive and frequent menstruation with regular cycle; Translations: [Intermenstrual bleeding - irregular] Resolved: 12-10-9373TsvwcuhEgkhhniupwiud mental health disorders (6 sources)Primary insomnia; Translations: [Primary insomnia]Onset: 02-28-2024 49-10-6028MqntogpLaax disorders (6 sources)Moderate recurrent major depression; Translations: [...] (4 sources)Cerebrovascular disease; Translations: [Cerebrovascular disease, unspecified]Onset: 964660-72-2734AvrxirnNoixu connective tissue disease (1 source)Pain in right hand; Translations: [Pain in right hand]EpisodicOther connective tissue disease (4 sources)Pain in right hand; Translations: [Pain in right hand]EpisodicOther eye disorders (5 sources)Dilated pupil; 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]ChronicOther eye disorders (6 sources)Anisocoria; 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]Onset: 356291-62-4221 ChronicOther non-traumatic joint disorders (1 source)Pain in left hip; Translations: [Pain in left hip]EpisodicOther non- traumatic joint disorders (4 sources)Arthralgia of the pelvic region and thigh; Translations: [Pain in left hip]EpisodicOther non-traumatic joint disorders (2 sources)Hip pain; Translations: [Pain in right hip]56-93-4794XkytvjocPruuu non-traumatic joint disorders (1 source)Pain in right hip; Translations: [Pain in joint, pelvic region and thigh]61-07-0341LeiornktQftdn nutritional; endocrine; and metabolic disorders (1 source)Body mass index (BMI) 36.0-36.9, adult; Translations: [Body mass index (BMI) 36.0-36.9, adult]ChronicOther nutritional; endocrine; and metabolic disorders (5 sources)Obese class I; Translations: [Body mass index 32.0-32.9, adult]Onset: 61-06-6571HsuophbHyjjd nutritional; endocrine; and metabolic disorders (4 sources)Obese class II; Translations: [Body mass index (BMI) 36.0-36.9, adult]ChronicOther screening for suspected conditions (not mental disorders or infectious disease) (10 sources)Abnormal findings on diagnostic imaging of other specified body structures; Translations: [MRI scanabnormal]Onset: 58-45-6086CtomayxEyxbc screening for suspected conditions (not mental disorders or infectious disease) (20 sources)Encounter for screening mammogram for malignant neoplasm of breast; Translations: [Urine test negative]Onset: 14-79-5682RxqgxbnmBpdcq skin disorders (5 sources)Acne vulgaris; Translations: [Acne [...] pain; Translations: [Pelvic and perineal pain] Resolved: 71-74-8578DyzkendwYgofpfmt reactions (5 sources)Unspecified contact dermatitis due to other agents; Translations: [Contact dermatitis]Onset: 13-63-9457DcbijyxeGnuheagnqb associated with dizziness or vertigo (6 sources)Vertigo; Translations: [Dizziness and giddiness]Onset: 02-28-2024 67-42-6143TibmurnzUxkgeytm; including migraine (4 sources)Tension-type headache; Translations: [Tension-type headache, unspecified, intractable]Onset: 989562-53-3602XfvqlqhvVbbpabp and fatigue (1 source)Other fatigue; Translations: [OTHER FATIGUE]Onset: 02-86-7197Jftxaurm Mycoses (5 sources)Candidiasis, unspecified; Translations: [Candidiasis]Onset: 76-81-4580RxwexmtlLvkwhysaasd chest pain (18 sources)Non-cardiac chest pain; Translations: [Other chest pain]Onset: 30-85-3324BegkgcyhRzkwv circulatory disease (4 sources)Other specified symptoms and signs involving the circulatory and respiratory systems; Translations:[OTH SPEC SX SIGNS INVLV CIRC RS]Onset: 62-27-2497CfbkfrthCriyp complications of (1 source)Supervision of high risk , unspecified, unspecified trimester; Translations: [Supervision of high risk , unspecified, unspecified trimester]Onset: 60-19-9034QodlqeocVjpgk complications of (4 sources)High risk ; Translations: [Supervision of high risk , unspecified, unspecified trimester]Onset: 80-42-3369UeilvyifStoog eye disorders (4 sources)Fundoscopy abnormal; Translations: [Unspecified disorder of eye and adnexa]Onset: 437914-03-5162ZmxnyuknCtytj liver diseases (4 sources)Elevated levels of transaminase & lactic acid dehydrogenase; Translations: [Nonspecific elevation of levels of transaminase or lactic acid dehydrogenase (LDH)]Onset: 56-77-9192ApczyynnPefti lower respiratory disease (2 sources)Shortness of breath; Translations: [Shortness of breath]Onset: 81-58-5571ViqvszpaEbmcr nervous system disorders (6 sources)Tremor; Translations: [Tremor, unspecified]Onset: 02-28-2024 06-48-9240XnclrtzfNftti non-traumatic joint disorders (5 sources)Shoulder joint pain; Translations: [Pain in right shoulder]Onset: 66-66-7387YjqrdycvQsuqu and delivery including normal (1 source)Encounter for routine follow-up; Translations: [Encounter for routine follow-up]Onset: 36-18-5174GdxfanssLpkgmjtui; thrombophlebitis and thromboembolism (5 sources)Embolism from thrombosis of vein of distal lower extremity; Translations: [Acute venous embolism and thrombosis of unspecified deep vessels of lower extremity]Onset: 48-42-5540WmicnlvmMppafxuwkoi; intervertebral disc disorders; other back problems (5 sources)Cervical disc disorder with radiculopathy; Translations: [Cervical disc disorder with radiculopathy, cervicothoracic region]Onset: 06-20-2018 EpisodicThyroid disorders (5 sources)Disorder of thyroid, unspecified; Translations: [Disorder of thyroid gland]Onset: 81-85-4460ZagomiotNhmmkegxknya (5 sources)Surveillance of intrauterine device contraception done; Translations: [Surveillance of previously prescribed intrauterine contraceptive device]Onset: 87-90-2195Klfqlvubqmql (5 sources)Encounter for insertion or removal of intrauterine contraceptive device; Translations: [Encounter for insertion or removal of intrauterine contraceptive device]Onset: 09-05-2009 Results Test NameValueInterpretationReference OjoosTyslppvu84ae 87-33-298042Fzlfluh had labs drawn 08/22 for routine wellness. Her K was very low so she was advised to go to the ED. She said the ED doc gave her 4 days worth of potassium chloride. It was checked again today and results are scanned into multimedia journalist for your review. Did you want to give her more potassium? It's still low. Please advise. Thanks.[facility]36on Regarding stress test result from 05/28/2025: Vdihi Anderson MD to Me (Selected Message) EE 06/05/25 7:55 AM Please reassure her stress test is normal Thanks Patient made aware.[facility] FoundationOrders Onlyon 01-01-2817Mwaiua [id number] Elvia Fox Alexy 1975 F Date Provider Department Center 06/04/2025 [id number], HISTORICAL BEATA [facility] Family History Problem Relation Age of Onset Supraventricular tachycardia Mother Heart disease Father Supraventricular tachycardia Sister Heart disease Paternal Grandmother Heart disease Paternal Grandfather Family Status - Relation Status Age at Mother Father Sister Paternal Grandmother Paternal GrandfatherNBarney Children's Medical CenterOffice Visiton 98-03-4335Xncisa-up [id number] Leslie Foxecca Alexy 1975 F Date Provider Department Center 05/03/2025 271-VIDHI ANDERSON Family History Problem Relation Age of Onset Supraventricular tachycardia Mother Heart disease Father Supraventricular tachycardia Sister Heart disease Paternal Grandmother Heart disease Paternal Grandfather Family Status - Relation Status Age at Mother Father Sister Paternal Grandmother Paternal Grandfather Level of Service:49858 CO OFFICE/OUTPATIENT ESTABLISHED MOD [facility]/BRAIN [facility]/W CONTRon 13-68-6666[address] [address] Magnetic Resonance Report Signed Patient: ELVIA FOX MR#: [id number] : 1975 Acct:[id number] Age/Sex: 48 / F ADM Date: 03/16/24 Loc: MRI Attending Dr: Harlan Niño NP Ordering Physician: Harlan Niño NP Date of Service: 03/16/24 Procedure(s): MR head/brain wo/w con Accession Number(s): [id number] cc: Pat Huston M.D.; Harlan Niño NP [place] [address] Patient Name: ELVIA FOX MRN: [facility]:[id number] date: 1975 Sex: F Assigned Patient Location: MRI Current Patient Location: MRI Accession/Order Number: [id number] Exam Date: 03/16/2024 16:00 Report Date: 03/16/2024 [...] M.D. Signed By: 03/16/241705 DD/ 03 TD/TT: Multimedia Designer:TBHRadiology, Radiologist, - 03/16/2024 [place] [address] Magnetic Resonance Report Signed Patient: ELVIA FOX MR#: [id number] : 1975 Acct:[id number] Age/Sex: 48 / F ADM Date: 03/16/24 Loc: MRI Attending Dr: Harlan Niño NP Ordering Physician: Harlan Niño NP Date of Service: 03/16/24 Procedure(s): MR head/brain wo/w con Accession Number(s): [id number] cc: Pat Huston M.D.; Harlan Niño NP [address] [place] [address] Patient Name: ELVIA FOX MRN: [facility]:[id number] date: 1975 Sex: F Assigned Patient Location: MRI Current Patient Location: MRI Accession/Order Number: [id number] Exam Date: 03/16/2024 16:00 Report Date: 03/16/2024 [...] M.D. Signed By: 03/16/241705 DD/ 03 TD/TT: Multimedia Designer: [facility] CenterRadiology Study observation (narrative)[facility]I [facility]/BRAIN WO/W CONTROrdered By: Radiologist Radiology on 55-62-7555IOJC [employer]anner Work Phone: MR breast BI wo/w con CADon 42-80-3920BZ breast BI wo/w con [facility] [place] [address] MRI Report Signed Patient: Elvia Fox MR#: [id number] : 1975 Acct:[id number] Age/Sex: 48 / F ADM Date: 09/07/23 [...] All imaged data was reviewed using the [employer] system. The postcontrast images were subtracted and [...] Waite Jr., D.OLinda09/07/2023 11:47 AM Dictation Location: [place] [address] Transcribed By: [facility] 09/07/23 1147 Dictated By: Bunny Waite Jr, DO 09/07/23 1138 Signed By: 09/07/23 1147[facility] HospitalMRI BRAIN WO W CONon 15-31-4400NFF BRAIN WO W CONEXAMINATION: MRI BRAIN WO [...] Electronically authenticated by: EDILSON JOHN Date: 2023-02-16 10:16[facility] HospitalLIPID PROFILEon 13-42-2238PLZE-HDL RATIO NORMSEE [facility] HospitalComment on above:Result Comment: 3.3 - 4.4 LOW RISK 4.4 - 7.1 AVERAGE RISK 7.1 - 11.0 MODERATE RISK >11.0 HIGH RISKPerformed By: #### CMP, TSH, LIPID #### [facility] [address] [place] [address] [address] David ZapataCholesterol [Mass/Vol]120 mg/dLNormal<=200The [facility] Comment on above:Performed By: #### CMP, TSH, LIPID #### [facility] [address] [place] [address] Dr. David ZapataCholesterol in HDL [Mass/Vol]54 mg/dAMokanj15-43PifHenry County HospitalComment on above:Performed By: #### CMP, TSH, LIPID #### [facility] [address] [place] [address] Dr. David ZapataCholesterol in LDL [Mass/Vol]45.6 mg/dLCleveland Clinic Marymount HospitalComment on above:Performed By: #### CMP, TSH, LIPID #### [facility] [address] [place] [address] Dr. David Suarezestermaciej.total/Cholesterol in HDL [Mass ratio]2.2 {ratio} NormalHenry County HospitalComment on above:Performed By: #### CMP, TSH, LIPID #### [facility] [address] [place] [address] Dr. David ZapataHDL NORMAL> or = 60 mg/dl - LOW CARDIOVASCULAR RISK <40 mg/dl - HIGH CARDIOVASCULAR RISKCleveland Clinic Marymount HospitalComment on above:Performed By: #### CMP, TSH, LIPID #### [facility] [address] [place] [address] Dr. David ZapataLDL CALC NORMALSEE [facility] HospitalComment on above:Result Comment: <100 mg/dl OPTIMAL 100 - 129 mg/dl NEAR OR ABOVE OPTIMAL 130 - 159 mg/dl BORDERLINE HIGH 160 - 189 mg/dl HIGH >190 mg/dl VERY HIGH Performed By: #### CMP, TSH, LIPID #### [facility] [address] [place] [address] Dr. David ZapataTriglyceride [Mass/Vol]102 mg/dLNormal<=150The [facility] Comment on above:Performed By: #### CMP, TSH, LIPID #### [facility] [address] [place] [address] Dr. David ZapataVLDL CALC20.4 mg/dLNormalThe [facility] SystemComment on above: Performed By: #### CMP, TSH, LIPID #### [facility] [address] [place] [address] Dr. David Cheatham PROFILEon 37-31-6967Stvxldz [Mass/Vol]3.4 g/dLNormal3.4-5.0 The [facility] SystemComment on above:Performed By: #### CMP, TSH, LIPID #### [facility] [address] [place] [address] Dr. David ZapataAlbumin/Globulin [Mass ratio]1.0 {ratio}NormalThe [facility] SystemComment on above:Performed By: #### CMP, TSH, LIPID #### [facility] [address] [place] [address] Dr. David Crockett [Catalytic activity/Vol]51 U/WOjphml80-327Sbk [facility] SystemComment on above:Performed By: #### CMP, TSH, LIPID #### [facility] [address] [place] [address] Dr. David Szymanski [Catalytic activity/Vol]32 U/RKkdyig99-64Feb [facility] on above:Performed By: #### CMP, TSH, LIPID #### [facility] [address] [place] [address] Dr. David Gamino [Catalytic activity/Vol]18 U/PMtmkjy32-78Dmw [facility] SystemComment on above:Performed By: #### CMP, TSH, LIPID #### [facility] [address] [place], [place] [address] Dr. David Xie, CONJUGATED0.1 mg/dLNormal0.0-0.2[facility] Comment on above:Performed By: #### CMP, TSH, LIPID #### [facility] [address] [place] [address] Dr. David Mcknightirubin [Mass/Vol]0.4 mg/dLNormal0.2-1.0[facility] Comment on above:Performed By: #### CMP, TSH, LIPID #### [facility] [address] [place] [address] Dr. David ZapataGlobulin (S) [Mass/Vol]3.5 g/dLNormalThe [facility] SystemComment on above:Performed By: #### CMP, TSH, LIPID #### [facility] [address] [place] [address] Dr. David ZapataProtein [Mass/Vol]6.9 g/dLNormal6.4-8.2[facility] Comment on above:Performed By: #### CMP, TSH, LIPID #### [facility] [address] [place] [address] Dr. David Kellogg AUTO DIFFon [id number] #0.0 103/ulNormal0.0-0.1[facility] HospitalComment on above:Performed By: #### CBC #### [facility] [address] [place] [address] Dr. David ZapataBasophils/100 WBC (Bld)0.4 %Normal0.2-2.0[facility] Comment on above:Performed By: #### CBC #### [facility] [address] [place] [address] Dr. David Henry #0.3 103/ulNormal0.0-0.7The [facility] SystemComment on above: Performed By: #### CBC #### [facility] [address] [place] [address] Dr. David Chavisosinophils/100 WBC (Bld)3.4 %Normal0.9-7.0The [facility] Comment on above:Performed By: #### CBC #### [facility] [address] [place] [address] Dr. David Chavisrythrocyte distribution width (RBC) [Ratio]12.0 %[place]23.0-15.0 The [facility] SystemComment on above:Performed By: #### CBC #### [facility] [address] [place] [address] Dr. David ZapataHematocrit (Bld) [Volume fraction]44.2 %Wsilmb68.0-48.0The [facility] SystemComment on above:Performed By: #### CBC #### [facility] [address] [place] [address] Dr. David ZapataHemoglobin (Bld) [Mass/Vol]14.0 g/bMNlaspz44.0-16.0[facility] HospitalComment on above:Performed By: #### CBC #### [facility] [address] [place] [address] Dr. David Rubio #0.04 10e3/ulCritically high0.00-0.03The [facility] Comment on above:Performed By: #### CBC #### [facility] [address] [place] [address] Dr. David Rubio %0.5 %Normal0.0-0.5The [facility] SystemComment on above: Performed By: #### CBC #### [facility] [address] [place] [address] Dr. David Barnhart #2.3 103/ulNormal1.2-3.8The [facility] SystemComment on above:Performed By: #### CBC #### [facility] [address] [place] [address] Dr. David Guevarahocytes/100 WBC (Bld)28.7 %Wwfsjk45.5-60.0The [facility] SystemComment on above:Performed By: #### CBC #### [facility] [address] [place] [address] Dr. David HanksUAL DIFF REQNONormalThe [facility] SystemComment on above: Performed By: #### CBC #### [facility] [address] [place] [address] Dr. David León (RBC) [Entitic mass]29.2 kdNycdle36.7-34.0The [facility] SystemComment on above:Performed By: #### CBC #### [facility] [address] [place] [address] Dr. David León (RBC) [Mass/Vol]31.7 g/sCJbyppg00.9-35.2The [facility] HospitalComment on above:Performed By: #### CBC #### [facility] [address] [place] [address] Dr. David León (RBC) [Entitic vol]92.1 mIPcokmr61.0-99.0The [facility] SystemComment on above:Performed By: #### CBC #### [facility] [address] [place] [address] Dr. David Arellano #0.6 103/ulNormal0.3-0.8The [facility] SystemComment on above:Performed By: #### CBC #### [facility] [address] [place] [address] Dr. David Sureshocytes/100 WBC (Bld)7.3 %Normal1.7-12.0The [facility] Comment on above:Performed By: #### CBC #### [facility] [address] [place] [address] Dr. David Noble #4.8 103/ulNormal1.4-6.5The [facility] SystemComment on above:Performed By: #### CBC #### [facility] [address] [place] [address] Dr. David Cavazosutrophils/100 WBC (Bld)59.7 %Wyzrit42.0-75.0The [facility] SystemComment on above:Performed By: #### CBC #### [facility] [address] [place] [address] Dr. David Maldonadolet mean volume (Bld) [Entitic vol]9.4 fLCritically low 9.5-13.5The [facility] on above:Performed By: #### CBC #### [facility] [address] [place] [address] Dr. David ArayaT308 103/uoPwcsao608-848Kgv [facility] on above: Performed By: #### CBC #### [facility] [address] [place] [address] Dr. David ZapataRBC4.80 106/ulNormal4.20-5.40The [facility] on above:Performed By: #### CBC #### [facility] [address] [place] [address] Dr. David ZapataWBC8.0 103/ulNormal4.0-11.0The [facility] on above: Performed By: #### CBC #### [facility] [address] [place] [address] Dr. David ArroyoID PROFILEon 23-72-1295RZCO-HDL RATIO NORMSEE [facility] HospitalComtr[facility] on above:Result Comment: 3.3 - 4.4 LOW RISK 4.4 - 7.1 AVERAGE RISK 7.1 - 11.0 MODERATE RISK >11.0 HIGH RISKPerformed By: #### CMP, TSH, LIPID #### [facility] [address] [place] [address] Dr. David ZapataCholesterol [Mass/Vol]203 mg/dLCritically high<=200The [facility] on above:Performed By: #### CMP, TSH, LIPID #### [facility] [address] [place] [address] Dr. David ZapataCholesterol in HDL [Mass/Vol]57 mg/yQHmsubl91-21Uum [facility] on above:Performed By: #### CMP, TSH, LIPID #### [facility] [address] [place] [address] Dr. David Suarezesterol in LDL [Mass/Vol]120.4 mg/dLNormalThe [facility] HospitalComment on above:Performed By: #### CMP, TSH, LIPID #### [facility] [address] [address] [address] David ZapataCholesterol.total/Cholesterol in HDL [Mass ratio]3.6 {ratio} NormalThe [facility] SystemComment on above:Performed By: #### CMP, TSH, LIPID #### [facility] [address] [address] [address] David Garcia NORMAL> or = 60 mg/dl - LOW CARDIOVASCULAR RISK <40 mg/dl - HIGH CARDIOVASCULAR RISKCleveland Clinic Marymount HospitalComment on above:Performed By: #### CMP, TSH, LIPID #### [facility] [address] [address] [address] David ZapataLDL CALC NORMALSEE BELOWCleveland Clinic Marymount HospitalComment on above:Result Comment: <100 mg/dl OPTIMAL 100 - 129 mg/dl NEAR OR ABOVE OPTIMAL 130 - 159 mg/dl BORDERLINE HIGH 160 - 189 mg/dl HIGH >190 mg/dl VERY HIGH Performed By: #### CMP, TSH, LIPID #### [facility] [address] [address] [address] David ZapataTriglyceride [Mass/Vol]128 mg/dLNormal<=150The [facility] Comment on above:Performed By: #### CMP, TSH, LIPID #### [facility] [address] [address] [address] David ZapataVLDL CALC25.6 mg/dLNoDiley Ridge Medical CenterComment on above: Performed By: #### CMP, TSH, LIPID #### [facility] [address] [address] [address] David ZapataPROKareem 14(COMP METB)on 98-00-8033Cdgbjkv [Mass/Vol]3.5 g/dLNormal 3.4-5.0The [facility] SystemComment on above:Performed By: #### CMP, TSH, LIPID #### [facility] [address] [address] [address] David ZapataAlbumin/Globulin [Mass ratio]1.0 {ratio}NormalThe [facility]nesville HospitalComment on above:Performed By: #### CMP, TSH, LIPID #### [facility] [address] [place] [address] Dr. David Crockett [Catalytic activity/Vol]68 U/DJmeiss16-024Dyq [facility] SystemComment on above:Performed By: #### CMP, TSH, LIPID #### [facility] [address] [place] [address] Dr. David Szymanski [Catalytic activity/Vol]28 U/ESikktc15-91Fol [facility] SystemComment on above:Performed By: #### CMP, TSH, LIPID #### [facility] [address] [place] [address] Dr. David Nguyen gap [Moles/Vol]11.3 mmol/LNormalThe [facility] Comment on above:Performed By: #### CMP, TSH, LIPID #### [facility] [address] [place] [address] Dr. David Gamino [Catalytic activity/Vol]18 U/FLykqdx62-33Rwv [facility] SystemComment on above:Performed By: #### CMP, TSH, LIPID #### [facility] [address] [place] [address] Dr. David ZapataBilirubin [Mass/Vol]0.4 mg/dLNormal0.2-1.0[facility] Comment on above:Performed By: #### CMP, TSH, LIPID #### [facility] [address] [place] [address] Dr. David ZapataCalcium [Mass/Vol]8.8 mg/dLNormal8.5-10.1[facility] Comment on above:Performed By: #### CMP, TSH, LIPID #### [facility] [address] [place] [address] Dr. David Vuongide [Moles/Vol]103 mmol/BFaalro48-818Lgz [facility] Comment on above:Performed By: #### CMP, TSH, LIPID #### [facility] [address] [place] [address] Dr. David ZapataCO2 [Moles/Vol]28.4 mmol/FZpxeep38.0-32.0[facility] Comment on above:Performed By: #### CMP, TSH, LIPID #### [facility] [address] [address] [address] David ZapataCreatinine [Mass/Vol]0.96 mg/dLNormal0.55-1.02The [facility] SystemComment on above:Performed By: #### CMP, TSH, LIPID #### [facility] [address] [place] [address] Dr. David ChavisGFR-AF [place]>60Normal>=60The [facility] SystemComment on above:Performed By: #### CMP, TSH, LIPID #### [facility] [address] [place] [address] Dr. David Mccallum-NON AF [place]>60Normal>=60The [facility] SystemComment on above:Performed By: #### CMP, TSH, LIPID #### [facility] [address] [place] [address] Dr. David ZapataGlobulin (S) [Mass/Vol]3.5 g/dLNormalThe [facility] SystemComment on above:Performed By: #### CMP, TSH, LIPID #### [facility] [address] [place] [address] Dr. David ZapataGlucose [Mass/Vol]94 mg/lWSipotg53-191VhhHenry [facility] Comment on above:Performed By: #### CMP, TSH, LIPID #### [facility] [address] [place] [address] Dr. David ZapataPotassium [Moles/Vol]3.7 mmol/LNormal3.5-5.1The [facility] Comment on above:Performed By: #### CMP, TSH, LIPID #### [facility] [address] [place] [address] Dr. David ZapataProtein [Mass/Vol]7.0 g/dLNormal6.4-8.2The [facility] Comment on above:Performed By: #### CMP, TSH, LIPID #### [facility] [address] [address] [address] David ZapataSodium [Moles/Vol]139 mmol/AHymulk739-522Uyi [facility] Comment on above:Performed By: #### CMP, TSH, LIPID #### [facility] [address] [address] [address] David ZapataUrea nitrogen [Mass/Vol]8.0 mg/dLNormal7.0-18.0The [facility] SystemComment on above:Performed By: #### CMP, TSH, LIPID #### [facility] [address] [address] [address] David ZapataUrea nitrogen/Creatinine [Mass ratio]8.3 mg/mgNormalThe [facility] SystemComment on above:Performed By: #### CMP, TSH, LIPID #### [facility] [address] [place] [address] Dr. David ZapataTSHon 55-93-1795MBP0.557 uIU/mLNormal0.358-3.740The [facility] SystemComment on above:Performed By: #### CMP, TSH, LIPID #### [facility] [address] [address] [address] David ZapataVITAMIN B12on 45-31-9817Dowiknpxp (Vitamin B12) [Mass/Vol]247.0 pg/vIJztehv796.0-986.0The [facility] SystemComment on above:Performed By: #### VITB12 #### [facility] [address] [place] [address] Dr. David ZapataNM STRESS/REST MULTIon 55-15-8325WZ STRESS/REST MULTIPatient: ELVIA FOX Exam Date: 11/04/2022 : 1975 Gender:F Ordering : DR VIDHI ANDERSON M.D. Admission #: [id number] Family : Order #: [id number] CLICK HERE TO VIEW EXAM RADIOLOGY REPORT [...] by: Edilson John M.D. on 11/05/2022 at 11:01[facility] MAMM SCREEN 3D AMANUEL CADon [id number] MAMM SCREEN 3D AMANUEL CADPatient: ELVIA FOX Exam Date: 07/10/2022 : 1975 Gender:F Ordering : DR PAT HUSTON M.D. Admission #: [id number] Family : Order #: [id number] CLICK HERE TO VIEW EXAM RADIOLOGY REPORT [...] Treatments None Family Cancers None LOCATION: [facility] BREAST COMPOSITION: Heterogeneously dense,which may obscure small [...] by: Nilesh Deutsch MD on 07/10/2022 at 08:04[facility]Th[facility] AUTO DIFFon [id number] #0.0 103/ulNormal0.0-0.1[facility] HospitalComment on above:Performed By: #### CBC #### [facility] [address] [place] [address] Dr. David ZapataBasophils/100 WBC (Bld)0.5 %Normal0.2-2.0[facility] Comment on above:Performed By: #### CBC #### [facility] [address] [place] [address] Dr. David Henry #0.3 103/ulNormal0.0-0.7The [facility] SystemComment on above: Performed By: #### CBC #### [facility] [address] [place] [address] Dr. David Chavisosinophils/100 WBC (Bld)3.4 %Normal0.9-7.0[facility] Comment on above:Performed By: #### CBC #### [facility] [address] [place] [address] Dr. David Chavisrythrocyte distribution width (RBC) [Ratio]12.1 %Iofroq09.0-15.0 [facility] HospitalComment on above:Performed By: #### CBC #### [facility] [address] [place] [address] Dr. David ZapataHematocrit (Bld) [Volume fraction]40.6 %Wsmyvg01.0-48.0[facility] HospitalComment on above:Performed By: #### CBC #### [facility] [address] [place] [address] Dr. David ZapataHemoglobin (Bld) [Mass/Vol]13.5 g/rBYzsokd61.0-16.0The [facility] on above:Performed By: #### CBC #### [facility] [address] [place] [address] Dr. David Rubio #0.03 10e3/ulNormal0.00-0.03The [facility] SystemComment on above:Performed By: #### CBC #### [facility] [address] [place] [address] Dr. David Rubio %0.4 %Normal0.0-0.5The [facility] SystemComtrinity health [facility] on above: Performed By: #### CBC #### [facility] [address] [place] [address] Dr. David Barnhart #2.1 103/ulNormal1.2-3.8The [facility] SystemComment on above:Performed By: #### CBC #### [facility] [address] [place] [address] Dr. David Guevarahocytes/100 WBC (Bld)28.6 %Zhqdfw41.5-60.0The [facility] on above:Performed By: #### CBC #### [facility] [address] [place] [address] Dr. David HanksUAL DIFF REQNONormalThe [facility] SystemComment on above: Performed By: #### CBC #### [facility] [address] [place] [address] Dr. David León (RBC) [Entitic mass]29.2 klEvfgwp39.7-34.0The [facility] SystemComment on above:Performed By: #### CBC #### [facility] [address] [place] [address] Dr. David León (RBC) [Mass/Vol]33.3 g/hRWznohd65.9-35.2The [facility] SystemComment on above:Performed By: #### CBC #### [facility] [address] [address] [address] David LeónV (RBC) [Entitic vol]87.9 wMYhovyk29.0-99.0The [facility] Hospitalment on above:Performed By: #### CBC #### [facility] [address] [place] [address] Dr. David Arellano #0.6 103/ulNormal0.3-0.8The [facility] SystemComment on above:Performed By: #### CBC #### [facility] [address] [place] [address] Dr. David Sureshocytes/100 WBC (Bld)7.9 %Normal1.7-12.0The [facility] Comment on above:Performed By: #### CBC #### [facility] [address] [place] [address] Dr. David Noble #4.3 103/ulNormal1.4-6.5The [facility] Hospitalment on above:Performed By: #### CBC #### [facility] [address] [place] [address] Dr. David Cavazosutrophils/100 WBC (Bld)59.2 %Sgvajp24.0-75.0The [facility] SystemComment on above:Performed By: #### CBC #### [facility] [address] [place] [address] Dr. David Maldonadolet mean volume (Bld) [Entitic vol]9.2 fLCritically low 9.5-13.5The [facility] Hospitalment on above:Performed By: #### CBC #### [facility] [address] [place] [address] Dr. David ZapataPLT280 103/eaXwzpod976-272Seo [facility] SystemComment on above: Performed By: #### CBC #### [facility] [address] [place] [address] Dr. David ZapataRBC4.62 106/ulNormal4.20-5.40The [facility] Hospitalment on above:Performed By: #### CBC #### [facility] [address] [address] [address] David ZapataWBC7.3 103/ulNormal4.0-11.0The [facility] on above: Performed By: #### CBC #### [facility] [address] [address] [address] David ZapataGLYCOHEMOGLOBIN A1Con 07-75-0081SGT RECOMMENDATIONSEE BELOWAultman Alliance Community HospitalComtrinity health [facility] on above:Result Comment: ADA RECOMMENDED LIMIT 4.0 - 6.0 ADA THERAPEUTIC TARGET < 7.0 ACTION SUGGESTED > 7.0Performed By: #### CMP, TSH, LIPID #### [facility] [address] [place] [address] Dr. David ZapataGlucose [Mass/Vol]103 mg/dLNoAshtabula County Medical Center on above:Performed By: #### CMP, TSH, LIPID #### [facility] [address] [place] [address] Dr. David ZapataHbA1c (Bld) [Mass fraction]5.2 %Normal4.5-6.2The [facility] on above:Performed By: #### CMP, TSH, LIPID #### [facility] [address] [place] [address] Dr. David ZapataLIPID PROFILEon 58-98-8659AOVU-HDL RATIO NORMSEE [facility] on above:Result Comment: 3.3 - 4.4 LOW RISK 4.4 - 7.1 AVERAGE RISK 7.1 - 11.0 MODERATE RISK >11.0 HIGH RISKPerformed By: #### CMP, TSH, LIPID #### [facility] [address] [address] [address] David ZapataCholesterol [Mass/Vol]217 mg/dLCritically high<=200The [facility] on above:Performed By: #### CMP, TSH, LIPID #### [facility] [address] [place] [address] Dr. David ZapataCholesterol in HDL [Mass/Vol]50 mg/iTInitce19-59Ieq [facility] SystemComment on above:Performed By: #### CMP, TSH, LIPID #### [facility] [address] [address] [address] David Suarezesterol in LDL [Mass/Vol]137.6 mg/dLCleveland Clinic Marymount HospitalComtrinity health [facility] hospital on above:Performed By: #### CMP, TSH, LIPID #### [facility] [address] [address] [address] David Mayers.total/Cholesterol in HDL [Mass ratio]4.3 {ratio} NormalThe [facility] SystemComment on above:Performed By: #### CMP, TSH, LIPID #### [facility] [address] [place] [address] Dr. David Garcia NORMAL> or = 60 mg/dl - LOW CARDIOVASCULAR RISK <40 mg/dl - HIGH CARDIOVASCULAR RISKCleveland Clinic Marymount HospitalComment on above:Performed By: #### CMP, TSH, LIPID #### [facility] [address] [address] [address] David Bardales CALC NORMALSEE BELOWCleveland Clinic Marymount HospitalComment on above:Result Comment: <100 mg/dl OPTIMAL 100 - 129 mg/dl NEAR OR ABOVE OPTIMAL 130 - 159 mg/dl BORDERLINE HIGH 160 - 189 mg/dl HIGH >190 mg/dl VERY HIGH Performed By: #### CMP, TSH, LIPID #### [facility] [address] [address] [address] David ZapataTriglyceride [Mass/Vol]147 mg/dLNormal<=150The [facility] Comment on above:Performed By: #### CMP, TSH, LIPID #### [facility] [address] [address] [address] David PantojaLDL CALC29.4 mg/dLNoDiley Ridge Medical CenterComment on above: Performed By: #### CMP, TSH, LIPID #### [facility] [address] [place] [address] Dr. David ZapataPROF 14(COMP METB)on 10-99-3448Qhsjkph [Mass/Vol]3.6 g/dLNormal 3.4-5.0The [facility] SystemComment on above:Performed By: #### CMP, TSH, LIPID #### [facility] [address] [address] [address] David ZapataAlbumin/Globulin [Mass ratio]1.1 {ratio}NormalThe [facility] SystemComment on above:Performed By: #### CMP, TSH, LIPID #### [facility] [address] [address] [address] David Crockett [Catalytic activity/Vol]62 U/UIhdmbz11-871Eqn [facility] SystemComment on above:Performed By: #### CMP, TSH, LIPID #### [facility] [address] [place] [address] Dr. David Szymanski [Catalytic activity/Vol]21 U/SUdfgks54-65Xtj [facility] SystemComment on above:Performed By: #### CMP, TSH, LIPID #### [facility] [address] [place] [address] Dr. David Nguyen gap [Moles/Vol]12.6 mmol/LNormalThe [facility] Comment on above:Performed By: #### CMP, TSH, LIPID #### [facility] [address] [place] [address] Dr. David ZapataAST [Catalytic activity/Vol]14 U/LCritically vos52-25Tcg [facility] SystemComment on above:Performed By: #### CMP, TSH, LIPID #### [facility] [address] [place] [address] Dr. David ZapataBilirubin [Mass/Vol]0.6 mg/dLNormal0.2-1.0The [facility] Comment on above:Performed By: #### CMP, TSH, LIPID #### [facility] [address] [place] [address] Dr. David ZapataCalcium [Mass/Vol]8.5 mg/dLNormal8.5-10.1[facility] Comment on above:Performed By: #### CMP, TSH, LIPID #### [facility] [address] [place], [place] [address] Dr. David ZapataChloride [Moles/Vol]103 mmol/ZPbswwm33-525Xcm [facility] Comment on above:Performed By: #### CMP, TSH, LIPID #### [facility] [address] [place] [address] Dr. David ZapataCO2 [Moles/Vol]26.2 mmol/SEjkydv42.0-32.0The [facility] Comment on above:Performed By: #### CMP, TSH, LIPID #### [facility] [address] [place] [address] Dr. David ZapataCreatinine [Mass/Vol]0.94 mg/dLNormal0.55-1.02[facility] HospitalComment on above:Performed By: #### CMP, TSH, LIPID #### [facility] [address] [place] [address] Dr. Hernandez ChangEGFR-AF [place]IZ[place]>60Normal>=60The [facility] SystemComment on above:Performed By: #### CMP, TSH, LIPID #### [facility] [address] [place] [address] Dr. David ChavisGFR-NON AF [place]>60Normal>=60The [facility] SystemComment on above:Performed By: #### CMP, TSH, LIPID #### [facility] [address] [place] [address] Dr. David ZapataGlobulin (S) [Mass/Vol]3.3 g/dLNormalThe [facility] SystemComment on above:Performed By: #### CMP, TSH, LIPID #### [facility] [address] [place] [address] Dr. David ZapataGlucose [Mass/Vol]100 mg/pNXyfqhr49-329Hja [facility] Comment on above:Performed By: #### CMP, TSH, LIPID #### [facility] [address] [place] [address] Dr. David ZapataPotassium [Moles/Vol]3.8 mmol/LNormal3.5-5.1The [facility] Comment on above:Performed By: #### CMP, TSH, LIPID #### [facility] [address] [address] [address] David ZapataProtein [Mass/Vol]6.9 g/dLNormal6.4-8.2The [facility] Comment on above:Performed By: #### CMP, TSH, LIPID #### [facility] [address] [address] [address] David ZapataSodium [Moles/Vol]138 mmol/QOkuadb325-472Wcy [facility] Comment on above:Performed By: #### CMP, TSH, LIPID #### [facility] [address] [address] [address] David ZapataUrea nitrogen [Mass/Vol]7.0 mg/dLNormal7.0-18.0The [facility] SystemComment on above:Performed By: #### CMP, TSH, LIPID #### [facility] [address] [place] [address] Dr. David Khan nitrogen/Creatinine [Mass ratio]7.4 mg/mgNormalThe [facility] SystemComment on above:Performed By: #### CMP, TSH, LIPID #### [facility] [address] [place] [address] Dr. David Tobias 51-16-2705QCU7.434 uIU/mLNormal0.358-3.740The [facility] SystemComment on above:Performed By: #### CMP, TSH, LIPID #### [facility] [address] [place] [address] Dr. David ZapataMRI BRAIN WO W CONon [id number] BRAIN WO W CONEXAMINATION: MRI BRAIN WO [...] Electronically authenticated by: EDILSON JOHN Date: 2022-06-10 06:40[facility] METABOLIC PANELon 10-19-4109Povoorv [Mass/Vol]8.6 mg/dL Normal8.6-10.3The [facility] HospitalComment on above:Order Comment: No: Do not add to previous drawPerformed By: #### 47800, 47160 #### [facility] [address] [place] [address], USAChloride [Moles/Vol]106 mmol/FAogcow89-533Wjb [facility] HospitalComment on above:Order Comment: No: Do not add to previous drawPerformed By: #### 72549, 92663 #### [facility] [address] [place] [address], USACO2 [Moles/Vol]24 mmol/EUppvpz18-02Phn [facility] HospitalComment on above:Order Comment: No: Do not add to previous draw Performed By: #### 25146, 36635 #### [facility] [address] [place] [address], USACreatinine [Mass/Vol]0.90 mg/dLNormal0.60-1.20The [facility] HospitalComment on above:Order Comment: No: Do not add to previous drawPerformed By: #### 16660, 07629 #### [facility] [address] [place] [address], USAGFR/1.73 sq M predicted among blacks MDRD (S/P/Bld) [Vol rate/Area]mL/min/{1.73_m2}Normal>60The [facility] Comment on above:Order Comment: No: Do not add to previous drawPerformed By: #### 78750, 79997 #### [facility] [address] [place] [address], USAGFR/1.73 sq M predicted among non-blacks MDRD (S/P/Bld) [Vol rate/Area]mL/min/{1.73_m2}Normal>60The [facility] Comment on above:Order Comment: No: Do not add to previous drawPerformed By: #### 37099, 40551 #### [facility] [address] [place] [address], USAGlucose [Mass/Vol]97 mg/nJVwtesi24-756Bmx [facility] HospitalComment on above:Order Comment: No: Do not add to previous drawPerformed By: #### 78608, 04244 #### [facility] [address] [place] [address], USAPotassium [Moles/Vol]3.9 mmol/LNormal3.5-5.1The [facility] HospitalComment on above:Order Comment: No: Do not add to previous drawPerformed By: #### 11950, 80632 #### [facility] [address] [place] [address], USASodium [Moles/Vol]136 mmol/HPnjnaw178-775Cco [facility] HospitalComment on above:Order Comment: No: Do not add to previous drawPerformed By: #### 70435, 10949 #### [facility] [address] [place] [address], USAUrea nitrogen [Mass/Vol]11 mg/dLNormal7-25The [facility] HospitalComment on above:Order Comment: No: Do not add to previous drawPerformed By: #### 91106, 97251 #### [facility] [address] [place] [address], USACBC COMPLETE BLOOD COUNTon 96-83-2698Nautmoraphc distribution width (RBC) [Ratio]12.0 %Bvqbrv45.5-15.0The [facility] HospitalComment on above:Order Comment: No: Do not add to previous draw Performed By: #### 83756 #### [facility] [address] [place] [address], USAHematocrit (Bld) [Volume fraction]42.7 %Ydgqdw45.0-45.0The [facility] HospitalComment on above:Order Comment: No: Do not add to previous drawPerformed By: #### 51704 #### [facility] [address] [place] [address], USAHemoglobin (Bld) [Mass/Vol]13.9 g/gKYwtook85.0-15.0The [facility] HospitalComment on above:Order Comment: No: Do not add to previous drawPerformed By: #### 04527 #### [facility] [address] [place] [address], [facility]ODWARDH (RBC) [Entitic mass]29.6 boPxfvhf80.0-33.0The [facility] HospitalComment on above:Order Comment: No: Do not add to previous drawPerformed By: #### 97294 #### [facility] [address] [place] [address], [facility] CENTERMCHC (RBC) [Mass/Vol]32.6 g/fCJgannr76.0-35.0The [facility] HospitalComment on above:Order Comment: No: Do not add to previous drawPerformed By: #### 56217 #### [facility] [address] [place] [address], [facility] MEDICAL CENTERMCV (RBC) [Entitic vol]91.0 qUYeynjd97.0-98.0The [facility] HospitalComment on above:Order Comment: No: Do not add to previous drawPerformed By: #### 82957 #### [facility] [address] [place] [address], USANucleated RBC/100 WBC (Bld) [Ratio]0 %Normal0-0The [facility] HospitalComment on above:Order Comment: No: Do not add to previous drawPerformed By: #### 34356 #### [facility] [address] [place] [address], USAPLAT UNH767 10*3/lDNcbidq743-340Dsj [facility] HospitalComment on above:Order Comment: No: Do not add to previous draw Performed By: #### 95943 #### [facility] [address] [place] [address], USARBC (Bld) [#/Vol]4.69 10*6/uLNormal3.80-5.00The [facility] HospitalComment on above:Order Comment: No: Do not add to previous drawPerformed By: #### 43989 #### [facility] [address] [place] [address], USAWBC (Bld) [#/Vol]8.19 10*3/uLNormal4.00-10.60The [facility] HospitalComment on above:Order Comment: No: Do not add to previous drawPerformed By: #### 80357 #### [facility] [address] [place] [address], USACardiovascular Lab Reporton 39-07-5451Wvlniovzvsheeb Lab ReportUnFostoria City Hospital Patient Name: Elvia Fox [facility] Alexy MR #: [id number] Department of Physician: Mike Polanco M.D. Division of Service Date: 06/16/2019 Cardiology Birthdate: 1975 Adult Cardiovascular Room #: 3AB [id number] [place] [address] [address] [place], [place] [address] Cardiovascular Laboratory Report FINAL IMPRESSIONS: 1. Angiographically [...] 6. She can follow up with Dr. aPt Huston, her family physician as scheduled. PROCEDURES: [...] the left radial artery was obtained. A 6-Czech glide sheath was inserted without difficulty. Bilateral [...] Anderson M.D. Date Trans: 06/17/2019 04:09 Alexy/adela DN_JN:[id number] cc: Pat Huston M.D. [address] [place] [address] Amos Vazquez M.D. [address] [address]YuyzpkIiuTwin City HospitalHEMOGLOBIN A1Con 15-17-2322OtT5w (Bld) [Mass fraction]4.8 %Normal4.0-6.0The [facility] HospitalComment on above:Order Comment: Yes: Add to Previous draw if ablePerformed By: #### 75892, 61814 #### [facility] [address] [place] [address], MCKLpT4s (Bld) [Mass fraction]91 mg/gVSqhenc97-612Tnk [facility] HospitalComment on above:Order Comment: Yes: Add to Previous draw if ablePerformed By: #### 46996, 23847 #### [facility] [address] [place] [address], USALIPID PROFILEon 91-12-3558Hcgwvasyyfs [Mass/Vol]209 mg/dL Bkme711-078Rha [facility] HospitalComment on above:Order Comment: Yes: Add to Previous draw if ableResult Comment: CHOLESTEROL REFERENCE RANGE: 20 YEARS AND OLDER CARDIOVASCULAR RISK Less than 200 mg/dl Low Risk 200 to 239 mg/dl Borderline Risk 240 mg/dl and greater High RiskPerformed By: #### 65645, 32647, 59271, 99101 #### [facility] [address] [place] [address], USACholesterol in HDL [Mass/Vol]35 mg/qWMqgpgi03-82Crg [facility] HospitalComment on above:Order Comment: Yes: Add to Previous draw if ableResult Comment: Slight variation in normal range could be due to gender and/or age. HDL CHOLESTEROL REFERENCE RANGE: 20 years and older Cardiovascular Risk > or =60 mg/dL Desirable 40 TO 59 mg/dL Low Risk <40 mg/dL High RiskPerformed By: #### 96836, 89089, 66422, 07435 #### [facility] [address] [place] [address], USACholesterol in LDL [Mass/Vol]139 mg/dLHigh0-130The [facility] HospitalComment on above:Order Comment: Yes: Add to Previous draw if ableResult Comment: LDL IS A CALCULATION LDL IS ONLY VALID IF THE TRIG IS LESS THAN 400.Performed By: #### 90422, 32125, 52426, 31879 #### [facility] [address] [place] [address], USACholesterol.total/Cholesterol in HDL [Mass ratio]6.0 {ratio}High0.0-4.5The [facility] HospitalComment on above:Order Comment: Yes: Add to Previous draw if ablePerformed By: #### 67074, 11743, 57124, 57202 #### [facility] [address] [place] [address], USANON-HDL DBNIFTDDDZR804 mg/dLNormalThe [facility] HospitalComment on above:Order Comment: Yes: Add to Previous draw if able Performed By: #### 56708, 37406, 81418, 43088 #### [facility] [address] [facility] [place] [address], USATriglyceride [Mass/Vol]174 mg/wCDlft15-343Bav [facility] HospitalComment on above:Order Comment: Yes: Add to Previous draw if ableResult Comment: TRIGLYCERIDE REFERENCE RANGE: 20 YEARS AND OLDER CARDIOVASCULAR RISK LESS THAN 150 mg/dl LOW RISK 150 TO 199 mg/dl BORDERLINE RISK 200 mg/dl AND GREATER HIGH RISKPerformed By: #### 03500, 39562, 28098, 78905 #### [facility] [address] [facility] [place] [address], [facility] MEDICAL CENTERVLDL CHOL35 mg/dLNormal0-40The [facility] HospitalComment on above:Order Comment: Yes: Add to Previous draw if able Performed By: #### 87336, 63561, 22366, 10155 #### [facility] [address] [place] [address], USAMAGNESIUM BLOODon 98-46-2453Rbzuaxjue [Mass/Vol]2.2 mg/dL Normal1.9-2.7The [facility] HospitalComment on above:Order Comment: No: Do not add to previous drawPerformed By: #### 38889, 42373, 81670, 56896 #### [facility] [address] [place] [place] [address], USAPHOSPHORUS BLOODon 66-35-7695Wsffpdbqv [Mass/Vol]4.3 mg/dL Normal2.5-5.0The [facility] HospitalComment on above:Order Comment: No: Do not add to previous drawPerformed By: #### 18783, 37151 #### [facility] [address] [facility] [place] [address], USAAPTTon 39-68-7736tMTZ Coag (Bld) [Time]27.3 sNormal 25.0-35.0The [facility] HospitalComment on above:Result Comment: ALL RESULTS MUST [...] BE USED FOR THIS PURPOSE.Performed By: #### 42003, 91291 #### [facility] [address] [place] [address], USABASIC METABOLIC PANELon 18-95-8744Phpzmea [Mass/Vol]9.3 mg/dLNormal8.6-10.3The [facility] HospitalComment on above:Order Comment: No: Do not add to previous drawPerformed By: #### 16726, 35539, 11678, 97750, 98306 #### [facility] [address] [place] [address], USAChloride [Moles/Vol]105 mmol/ENjoghx18-917Uav [facility] HospitalComment on above:Order Comment: No: Do not add to previous drawPerformed By: #### 67767, 47896, 21483, 83380, 51906 #### [facility] [address] [place] [address], USACO2 [Moles/Vol]23 mmol/IPpiekd89-40Uxy [facility] HospitalComment on above:Order Comment: No: Do not add to previous draw Performed By: #### 95240, 51921, 02268, 17622, 84527 #### [facility] [address] [place] [address], USACreatinine [Mass/Vol]0.85 mg/dLNormal0.60-1.20The [facility] HospitalComment on above:Order Comment: No: Do not add to previous drawPerformed By: #### 75739, 86257, 41481, 10434, 75356 #### [facility] [address] [place] [address], USAGFR/1.73 sq M predicted among blacks MDRD (S/P/Bld) [Vol rate/Area]mL/min/{1.73_m2}Normal>60The [facility] Comment on above:Order Comment: No: Do not add to previous drawPerformed By: #### 40105, 66101, 04222, 78632, 16619 #### [facility] [address] [place] [address], USAGFR/1.73 sq M predicted among non-blacks MDRD (S/P/Bld) [Vol rate/Area]mL/min/{1.73_m2}Normal>60The [facility] Comment on above:Order Comment: No: Do not add to previous drawPerformed By: #### 21104, 18899, 40224, 45243, 14816 #### [facility] [address] [place] [address], USAGlucose [Mass/Vol]91 mg/lZRrhdnc04-825Pfm [facility] HospitalComment on above:Order Comment: No: Do not add to previous drawPerformed By: #### 28554, 78292, 95125, 05247, 81334 #### [facility] [address] [place] [address], USAPotassium [Moles/Vol]3.9 mmol/LNormal3.5-5.1The [facility] HospitalComment on above:Order Comment: No: Do not add to previous drawPerformed By: #### 63306, 26952, 97848, 47614, 08228 #### [facility] [address] [place] [address], USASodium [Moles/Vol]136 mmol/CCujhan344-743Lak [facility] HospitalComment on above:Order Comment: No: Do not add to previous drawPerformed By: #### 33357, 23306, 39893, 68962, 16021 #### [facility] [address] [place] [address], USAUrea nitrogen [Mass/Vol]10 mg/dLNormal7-25The [facility] HospitalComment on above:Order Comment: No: Do not add to previous drawPerformed By: #### 53435, 32860, 13541, 17192, 86749 #### [facility] [address] [place] [address], USAFREE T3on 85-77-5680Vzmt T3 [Mass/Vol]2.6 pg/mLNormal 2.5-3.9The [facility] HospitalComment on above:Performed By: #### 71582, 28947, 97381, 01910, 59395 #### [facility] [address] [place] [address], USAFREE T4on 22-43-2407Wnbc T4 [Mass/Vol]0.73 ng/dLNormal 0.71-1.85The [facility] HospitalComment on above:Performed By: #### 55658, 70975, 42039, 26414, 59800 #### [facility] [address] [place] [address], USAMAGNESIUM BLOODon 76-77-1600Emntcowmu [Mass/Vol]2.2 mg/dL Normal1.9-2.7The [facility] HospitalComment on above:Order Comment: No: Do not add to previous draw MissPerformed By: #### 84295, 07211, 33312, 71840, 85214 #### [facility] [address] [place] [address], USAPROTHROMBIN TIMEon 16-16-3395VDB Coag (PPP) [Relative time] 1.06 {INR}Normal0.91-1.16The [facility] HospitalComment on above:Result Comment: ACCCP RECOMMENDED INR [...] OPTIMAL THERAPEUTIC RANGE. CHEST 1995;108:231S-246S.Performed By: #### 56947, 57676 #### [facility] [address] [place] [address], USAPT Coag (PPP) [Time]13.8 nXxrcwq67.3-14.8The [facility] HospitalComment on above:Result Comment: ALL RESULTS MUST BE INTERPRETED WITH RESPECT TO BLOOD DRAWING ARTIFACT OR DILUTION ERROR OF ANTICOAGULANT AT THE TIME OF SAMPLING.Performed By: #### 52882, 03398 #### [facility] [address] [place] [address], YKQQEI5kx 58-33-9179QRE 3RD GENERATION1.94 uIU/mLNormal 0.34-5.60The [facility] HospitalComment on above:Performed By: #### 19502, 29773, 61207, 68483, 13201 #### [facility] [address] [place] [address], [facility] Vital Signs Date TimeVital SignValuePerforming HqsggdagfSeignzmg52-92-8486 16:18-0400 Diastolic blood tsebgrcp24 mm[Hg]Pat Huston MD Work Phone: [facility]07-31-2025 16:18-0400 Heart rate62 /Rubina Huston MD Work Phone: [facility]07-31-2025 16:18-0400 Systolic blood kvojosiq849 mm[Hg]Pat Huston MD Work Phone: [facility]12-16-2024 11:00-0500 Body favwlr669.1 cmAchemadottie Woodsvik RN HOME CARE Work Phone: [facility] CenterLrxjqifibl88-07-9283 11:00-0500Body mass index (BMI) [Ratio]35.65 kg/k6Dhcpnz Salinas RN HOME CARE Work Phone: [facility] CenterLmnvahjgie91-07-8952 11:00-0500Body kukwyd97.18 kgHarlan Salinas RN HOME CARE Work Phone: [facility] CenterEwbycmggdj26-95-3700 11:00-0500Diastolic blood uhhlajdy69 mm[Hg]Harlan Salinas RN HOME CARE Work Phone: [facility] CenterEmzzjwqhqn24-99-5996 11:00-0500Heart rate58 /min Harlan Niño RN HOME CARE Work Phone: [facility] CenterTpbzixzdrv09-99-0017 11:00-9721XcC4% (BldA) [Mass fraction]98 %Harlan Salinas RN HOME CARE Work Phone: [facility] CenterEgvdjywvyd39-18-1221 11:00-0500Systolic blood aqpaaekk655 mm[Hg]Harlan Salinas RN HOME CARE Work Phone: [facility] CenterAhtsbalrwf82-10-2236 11:16-0400Body jbybgr333.1 cmThe [facility]10-30-2024 11:16-0400Body mass index (BMI) [Ratio]35.4 kg/k8DoakjlgdkThe [facility]10-30-2024 11:16-0400Body iykwrb18.61 kgThe [facility]10-30-2024 11:16-0400Diastolic blood whdbwkyd24 mm[Hg][facility]10-30-2024 11:16-0400 Heart rate65 /minThe [facility]10-30-2024 11:16-0400Systolic blood lathseyp717 mm[Hg][facility]11-14-2023 10:29-0500 Body qzirhf230.1 cmMD Pat Huston Work Phone: [facility]11-14-2023 10:29-0500 Body ivazbh31.52 kgMD Pat Robel Work Phone: [facility] Encounters Encounter DateEncounter TypeCare ProviderFacilityStart: 05-24-2025 End: 42-76-6920puqqeyugxbYjsbqh E Braun MD Work Phone: [facility] Work Phone: Start: 05-24-2025 End: 73-28-5236Iktjewy encounter procedureHarlan Brandt [facility] [place] Work Phone: Start: 05-03-2025 End: 77-96-1571rpatvzmsotQAPZCrystal Clinic Orthopedic Centertart: 10-09-2024 End: 67-14-9222Xdsnpb flowsheetHarlan Niño RN HOME CARE Work Phone: [facility] [address]Start: 10-09-2024 End: 71-39-0681Pygari flowsheetHarlan Nioñ RN HOME CARE Work Phone: noMS [facility]TEStart: 10-09-2024 End: 91-48-1519Catgdy outpatient visit 25 minutesAngejayne Niño RN HOME CARE Work Phone: noMS [facility] STATE ROUTEComment on above:Abnormal MRI (Primary Dx); Anisocoria; Tremor; Tension-type headache, not intractable, unspecified chronicity pattern; Vertigo; Primary insomniaStart: 10-09-2024 End: 41-17-4728qmhahlttbnYGVWTM GILLMORNot AvailableStart: 81-06-4776Kqxgjhf encounter [facility] Centertart: 08-23-2024 End: 94-40-5065jsblfjwszmVndmczibbHolmes County [facility] Work Phone: Start: 08-23-2024 End: 69-05-1414Swqgewm encounter procedureRandolph Health Physician [facility] Work Phone: Start: 03-16-2024 End: 95-57-5292Eeievsvph Result EncounterAngela Peggymor RN HOME CARE Other Phone: NOTP External Department UnsolicitedStart: 03-16-2024 End: 37-33-6780Aanvsvwgo Result EncounterAngela Peggymor RN HOME CARE Other Phone: noms External Department UnsolicitedStart: 02-28-2024 End: 1977kmfmztaiabNQZUIX PEGGYMORNot AvailableStart: 23-89-9958Esujdgfkc encounterMarcia RobelOhioHealth Marion General Hospitaltart: 09-07-2023 End: 68-43-8593fspefofhaySxsxyz E BraunFacility:[facility] Systemtart: 09-07-2023 End: 61-52-1428voqjrjryrzWN Marcia E Braun Work Phone: [facility] Work Phone: Start: 09-07-2023 End: 01-59-2162Hwixwjl encounter procedureMD Pat Huston Work Phone: [facility] [place] Work Phone: Start: 08-06-2023 End: 05-99-1303fwbrsajjkgQlzukk Braun Other [employer] Other Start: 56-59-4142Zzermhutm encounterMarcia RobelAdams County Hospital ClinicStart: 07-27-2023 End: 56-60-4510tkzretdeqyEfyynj Braun Other [employer] Other Start: 97-33-2497Uynjmrcdz encounterMarcia RobelAdams County Hospital ClinicStart: 07-13-2023 End: 19-93-6478dtncptdfqjDjjuio Braun Other [employer] Other Start: 43-77-9415Dbuxibjkz encounterMarcia RobelAdams County Hospital ClinicStart: 07-06-2023 End: 83-17-8346ealfwhjmlgWpitow Robel Other [employer] Other Start: 02-46-7797Rmdqdizsp encounterPat Cee [facility] ClinicStart: 34-22-1616akxanfsxgvZckxncyunir Abdelaziz Facility:[facility] Systemtart: 62-66-0745odmuuqznnoTM EHAB ELTAHAWYFacility:X8Nqusx: 02-16-2023 End: 07-86-1094cnlwyenrtaTN JL DANNERFacility:H9Bykqv: 02-11-2023 End: 69-38-0573vbqrygqbjcRF EHAB ELTAHAWYFacility:H2Ftxdm: 49-05-1321Iubbzinho for general adult medical examination without abnormal findingsDR PAT HUSTON [facility] Hospitaltart: 11-19-2022 End: 03-44-4681vesuhklrrhZxadnz Braun Other [employer] Other Start: 82-50-8911Flvlrwfjq encounterPat Cee [facility] ClinicStart: 11-18-2022 End: 15-98-2477owjzdaqbtbEN PAT HUSTONFacility:Q6Cowai: 11-18-2022 End: 05-32-5668Ofopjqopx for general adult medical examination without abnormal findingsDR PAT HUSTONFacility:O7Dlgnd: 11-04-2022 End: 76-05-8356gojdrfggqkVS EHAB ELTAHAWYFacility:B6Rfskd: 07-10-2022 End: 20-02-6599myhuzixygwVJ PAT HUSTONFacility:Q6Cghko: 59-71-2738Bgokr health examinationPat Huston Other [employer] Other Start: 50-35-6728Mezdhlrab for general adult medical examination without abnormal findingsPat Huston Other [employer] Other Start: 06-24-2022 End: 57-94-8260msmezcfeodGD PAT HUSTONFacility:I1Wgqph: 06-09-2022 End: 02-34-6130wtoycxljshHW DOCTOR MISCFacility:P7Fxdxg: 06-16-2019 End: 47-35-2667Jgimacb encounter procedureOMAR AL-HOURANIFacility:UTMCStart: 20-75-9632Frziqftkijmzc examination normalPat Huston Other [employer] Other Procedures DateProcedureProcedure DetailPerforming ClinicianStart: 00-03-5445ILL HEAD/BRAIN WO/W Scott Niño NP Other Phone: Start: 80-50-5562GQI of bilateral breasts with contrastMD Pat Robel Work Phone: Start: 90-28-7780Blcxzvpxt visitPat Robel Other Start: 65-38-9075Zltdnlvhnnpuo care educationPat Robel Other Screening for malignant neoplasm of breastPat Robel Other Viral screeningPat Robel Other Plan of Treatment DateCare ActivityDetailAuthorStart: 04-02-2025 End: 03-79-5557Ymqzbzr encounter hyorrnbjv03/09/2025 4:00 PM EDT Office Visit [facility] [address] [place] [phone] Harlan Niño NP [address] [place] [address] [facility] ROUTEStart: 10-09-2024 End: 76-04-7045Cnyraew encounter pxizytash53/16/2024 10:40 AM EST Office Visit [facility] [address] [place] [phone] Harlan Niño NP [address] [place] [address] ArrivedNO [facility] ROUTEComment on above: ArrivedComprehensive metabolic 2000 panel - Serum or PlasmaThe Christ HospitalXR Pelvis and Hip - bilateral ViewsAdventHealth for Women Payers DatePayer CategoryPayerPolicy [id number] [facility] 10.26.840.545941.1.13.693.2.7.9.061960.69217[id number] [id number] 2..6.90529[id number] 2..1.202840.3.57[id number] 2..1.917240.3.57[id number] 2..1.996726.3.57[id number] 2..1.831982.3.57[id number] 2..1.955430.3.57[id number] 2.16.840.1.432525.3.57[id number] 2.16.840.1.080514.3.579.2.34458-17-2308Molbvkd7863790 2.16.840.1.853118.3.579.2.55824-08-6764Lwmsnwv8415406 2.16.840.1.652361.3.579.2.72023-56-3255Wsybget4179669 2.16.840.1.176992.3.579.2.878986-88-4869Fqorumy5463142 2.16.840.1.164077.3.579.2.300732-44-0892Lgxb-[id number] Other1 (STD)[id number] 73204agk-544m-1z94-k19f-[id number] 2.16.840.1.979265.3.579.2.377Oqkxpfi11627984 2.0.1.040172.3.579.2.531 Social History DateTypeDetailFacilityUnknown if ever smokedBluewater [employer] Other Start: 02-28-2024 End: 64-11-3882Eja Assigned At [facility] [employer] Other Start: 05-68-8233Cdx [facility] At [facility]: 04-20-2022 End: 73-92-1225Mgssvyy smoking status NHISNever smoked tobacco (finding) [facility]: 39-87-3106Qquskwp use and exposure Smokeless tobacco non-userNOMS HealthcareStart: 02-28-2024 End: 00-69-4421Rvygcolib beverage intakeLifetime non-drinker (finding)[facility] HealthcareStart: 02-28-2024 End: 36-87-4803Cqrhvri of Social functionCapital Region Medical CenterStart: 63-94-8462Derrmm identityIdentifies as female gender (finding)[facility] HealthcareSexFemale (finding) [facility] Systemtart: 58-85-6592FfcDwcipdSIMBPrisma Health [facility] Clinical Notes 11-04-2022 to 05-03-2025 Note Date & DwtwNldsGjronsgy51-33-2722 [facility] Chief Complaint: [...] dizziness. She did see one of our music journalist Dr. Guevara and they discussed the potential [...] Paroxysmal tachycardia (CMS/HCC), Prinzmetal angina, and WPW (Barrw-Lpmaqkmcp-Klohl syndrome). Surgical History She has a past [...] to pulmonary hypertension and/o (more content not included)...[facility] 07-27-2023 Evaluation note* Encounter Date Diagnosis Assessment Notes Treatment Notes Treatment Clinical Notes Jul, Abnormal mammogram (ICD-10 - R92 .8) [facility] [employer] Other 09-19-2023 Evaluation note* Encounter Date Diagnosis Assessment Notes Treatment Notes Treatment Clinical Notes Jun, Abnormal mammogram of right rae st (ICD-10 - R92.8) [facility] [employer] Other 09-12-2023 Evaluation note* Encounter Date Diagnosis Assessment Notes Treatment Notes Treatment Clinical Notes Jun, Screening mammogram for breast c ancer (ICD-10 - Z12.31) [facility] [employer] Other 01-11-2023 NoteCARDIAC STRESS TEST Requesting Physician: [...] further information. 7. Clinical correlation is recommended.[facility] SystemEvaluation noteNo InformationNorusk rehabilitation center [employer] Other Evaluation noteNo assessment information available [facility] Work Phone: Evaluation note* Diagnosis Onset Date Resolution Status Bilateral hip pain acute [facility] Work Phone: Evaluation note* Diagnosis Abnormal MRI- [...] CERVICAL DISORDERSurgical Historyarthroscopy twice-2006,2008; rhinoplasty Surgical Historylap-hystoscopy, d&s0967Dvmrjolj HistoryhysterectomySurgical Historybone marrow mfzxyvdf2915Jekrtuxhmfxthrt Historysee above [employer] Other History general Narrative - Reported* Type [...] Title : Outpatient,Surgical HistoryProblem Title : NON SERVICE PLANNER SURGERIES: Right knee arthroscopy, Problem Status : [...] Ligation, Problem Status : Active,Hospitalization Historysee above [employer] Other Reason for referral (narrative)No reason for referral information availableC[facility] Work Phone: Summary Purpose Family History No Family History Records Found Relationship Condition Age at Onset Recorded Date/T porfirio father Hypertension Unknown Heart diseaseUnknownHistory of strokeUnknownmotherHypertensionUnknown Advance Directives No Advanced Directives Records Found Advance Directive Response Recorded Date/ Time Advance Directives No August 9:55am Advance Directive Response Recorded Date/ Time Advance Directives No August 10:55am Hospital Course Note MR#: [id number] [facility] Pt. Name: Elvia Fox Admitted: 06/16/2019 Discharged: 06/17/2019 Date of : 1975 Physician: Alessandro Lin MD DISCHARGE SUMMARY PRIMARY DIAGNOSES: 1. Typical chest pain with abnormal stress test. Post heart catheterization, which demonstrated no significant coronary artery stenosis. 2. Major depressive disorder. 3. Lower end of normal T4 with normal TSH. 4. Pxppd-Inxpypgmf-Vcssm. HOSPITAL COURSE: The patient is a 43-year-old [...] and content) DATE CREATED AUTHOR 09/18/2019 [facility] DATE CREATED AUTHOR AUTHOR'S ORGANIZ ATION 03/07/2023 [facility] DATE CREATED AUTHOR AUTHOR'S ORGANIZ ATION 10/14/2023 [facility] DATE CREATED AUTHOR AUTHOR'S ORGANIZ ATION 10/11/2024 [facility] EPIC DATE CREATED AUTHOR AUTHOR'S ORGANIZ ATION 08/28/2025 [facility] REASON FOR VISIT (unrecogniz ed section [...] DateEnd Date Pat Huston MD [address] [place] [address] PCP - General02/27/24Team MemberRelationshipSpecialtyStart DateEnd Date Pat Huston MD [address] [place] [address] PCP - General02/27/24 Jl Aguilar DO [address] [id number] Referring UrndbhlzyHxgraxrsj57/16/24 Team Status: Inactive Member Role Status Dates Pat Huston MD Primary Care Provider Active Start: May 24, 2025 End: May 24Alicja Coleman ProviderActiveStart: May 24, 2025 End: May 24, 2025Team MemberRelationshipSpecialtyStart DateEnd Date Pat Huston MD PCP - General02/27/24 Harlan Niño NP PCP - [employer]// Jl Aguilar DO [address] [place] [address] Referring FowasfpcbXviikxcvc57/16/24 Goals (unrecognized section and content) Goals may [...] BE BASED ON THE PRIMARY CLINICAL RECORDS. [employer] [facility]. provides no warranty or guarantee of the accuracy or completeness of information in this document.
--- OUTSIDE RECORDS SUMMARY | 2025-09-25 06:58 | XMS_ITS | Clinical Summary ---
Author Organization [facility] Address [address] [place] [address] Care Team Providers Care Med Admin Name Role Phone Pat Dominique MD Primary Care Provider [phone] Allergies Active AllergyReactionsCriticalityNoted BcotEbycazjcHxlxrdszmmcrLkgvj30/28/2021 MeperidineGI intolerance,Other12/15/2013Oxycodone-AcetaminophenOther,GI pemqsuenisf34/21/2014Propoxyphene N-AcetaminophenOther,GI yewqwueswar21/21/2014 Medications MedicationSigDispense QuantityRefillsLast FilledStart DateEnd DateStatus buPROPion XL (Wellbutrin XL) 300 mg 24 hr tablet Take 300 mg by mouth in the morning.Active DULoxetine (Cymbalta) [address] capsule Take 30 mg by mouth in the morning.Active hydroCHLOROthiazide (HYDRODiuril) 25 mg tablet Indications:Essential hypertensionTAKE 1 TABLET BY MOUTH IN THE MORNING 90 tablet 5Active clopidogrel (Plavix) 75 mg tablet Indications:Coronary artery disease of [place] artery of [place] heart with stable angina pectorisTAKE 1 TABLET BY MOUTH ONCE DAILY DIRECTED 90 tablet 5Active metoprolol tartrate (Lopressor) 25 mg tablet Indications:Coronary artery disease of [place] artery of [place] heart with stable angina pectorisTAKE 1 TABLET [...] 40 mg tablet Indications:Coronary artery disease of [place] artery of [place] heart with stable angina pectorisTAKE 1 TABLET [...] tablet /ctive Active Problems ProblemNoted DateDiagnosed DatePrimary uffdkccd12/06/5395Ygfaff93/06/2024Vertigo 02/28/2024bnormal MRI02/25/20249822Xxpyephcfj91/03/2024erebrovascular disease 02/25/2024Eye exam tgkejnto90/03/2024Tension type gbaosdpx35/03/2024hest pain 12/07/2022 Overview (12/07/2022): Added automatically from request for surgery [id number] Paroxysmal gnofnjpbxwt36/06/2020Prinzmetal pnwnuw6405/30/20207504Ollqy-Rxodwlayw-Ybeac crmbfpm7105/30/20204400Dpgrlk31/05/2014 Overview (09/25/2022): Last Assessment & Plan: She [...] for the next 7 days. Encounters DateTypeDepartmentCare AmyzHoggmxtehgn70/26/2025Telephone [facility] [address] [place] [facility] [place] [address] Maria Dolores Jose MA 09/12/2025Orders Only [facility] [address] [place] [facility] [place] [address] Maria Dolores Jose MA Essential hypertension (Primary Dx)09/12/2025Telephone [facility] [address] [place] [facility] [place] [address] Maria Dolores Jose MA 09/06/2025Telephone [facility] [address] [place] [facility] [place] [address] Maria Dolores Jose MA 08/28/2025Orders Only [facility] [address] [place] [place] [address] Maria Dolores Jose MA Hypokalemia (Primary Dx)08/27/2025Telephone [address] [place] [address] Maria Dolores Jose MA from Last 3 [...] ValueDate RecordedSex Assigned at BirthNot on fileLegal AilWajmhs24/29/2022 10:21 PM EDTGender IdentityNot on fileSexual OrientationNot on file Last Filed Vital Signs Vital SignReadingTime TakenCommentsBlood Kmcjurui682/7207 9:25 AM EDT Gwmrg767205/03/2025 9:25 AM EDTTemperature--Respiratory Soeu5969 3:30 PM ESTOxygen Vfhupuqgyy10%05/03/2025 9:25 AM EDTInhaled Oxygen Concentration-- Bksmjg41.3 kg (208 lb)05/03/2025 9:25 AM RLOYbuyix601.6 cm (5' 6 )05/03/2025 9:25 AM EDTBody Mass Index33.5707 9:25 AM EDT Plan of Treatment Health MaintenanceDue DateLast DoneCommentsCT Ngapsgguhgva1977Colonoscopy 1977Colorectal Cancer Lkhtxbcsm1977FIT-DNA1977FIT1977 FOBT1977 0282Amwvrgkclgrzp1977Depression Gjjdmllqt43/10/1989Hepatitis B Vaccines (1 of 3 - 19+ 3-dose series)1996Pneumococcal Vaccine: Pediatrics (0 to 5 Years) and At-Risk Patients (6 to 64 Years) (1 of 2 - PCV)1996Pap Smear1998Adult Jbxxqqz7609/03/1999Cervical Cancer Oyqlndduy57/10/2007 HPV/Kekjgx0209/03/20071194Yiqitvlzb67/10/2017COVID-19 Vaccine ( season) , 11/21/2020, 10/23/2020Influenza Vaccine [...] MemberSubscriberPlan / Payer (Effective 2022-Present)Name:Elif Fox Member ID:[id number] Relation to Subscriber:SelfName:Elif Fox Subscriber ID:[id number] Payer ID:[id number] (NAIC) Type:Not on file Address: [address] [place] [address] Care Teams Team MemberRelationshipSpecialtyStart DateEnd Date Pat Dominique MD [address] PCP - Umtvywu88/2/22
--- OUTSIDE RECORDS SUMMARY | 2025-09-25 06:58 | XMS_ITS | Clinical Summary ---
Author Organization [facility] Address [address] [place] [address] Care Team Providers Care Telephone Operator Name Role Phone Amos Vazquez MD Primary Care Provider [phone] Addie Mojica RN Unavailable [phone] Allergies Active AllergyReactionsCriticalityNoted DateCommentsPropoxyphene N-Acetaminophen Qyishzuk21/21/4505PfheeqemdwEmxhxdzw69/21/2014Oxycodone-AcetaminophenVomiting 12/15/2013 Medications MedicationSigDispense QuantityRefillsLast FilledStart DateEnd DateStatus PRISTIQ 50 mg 24 hr tablet Take 50 mg by mouth once daily.12/14/2013ctive HYDROcodone-acetaminophen 5-325 mg per tablet Take 1-2 tablets by mouth every 6 hours as needed for Pain. 30 tablet ctive Active Problems ProblemNoted DateDiagnosed JbujXyqxsq68/05/2014 Assessment & Plan (12/27/2013 11:30 AM EST): [...] InformationValueDate RecordedSex Assigned at BirthNot on fileLegal JxhPwdzzh89/02/2012 8:55 AM ESTGender Identity Not on fileSexual OrientationNot on fileOccupationIndustryJob Start DateJob End DateCardiovascular TechNot on fileNot on fileNot on file Last Filed Vital Signs Vital SignReadingTime TakenCommentsBlood Rmlsctpb350/6903 2:10 PM EDT Nsxdm0003 2:10 PM GSGEaqcobfmcyk42.8 ??C (98.2 ??F)01/16/2014 2:10 PM EDTRespiratory Qffc3842 2:10 PM EDTOxygen Mcyhlxhgkb99%01/16/2014 2:10 PM EDTInhaled Oxygen Concentration--Ddazjr65 kg (200 lb 9.9 oz)01/16/2014 2:10 PM JZDPamsup455 cm (5' 4.96 )01/16/2014 2:10 PM EDTBody Mass Index33.42 01/16/2014 2:10 PM EDT Plan of Treatment Health MaintenanceDue DateLast DoneCommentsAnxiety Dhypzxwjh86/10/1995Depression Cytxuxiwt45/10/1995Hepatitis C Vewmhxfnj08/10/1995DTaP,Tdap,Td Vaccine (1 - Tdap)1996Hepatitis B Vaccine (1 of 3 - 19+ 3-dose series)1996 Cervical Cancer Vrndxdhsr98/10/1998Mammogram Ryqkefayp61/10/2017CT Colonography 2Cologuard (FIT-DNA)7569Gowcmysjmhw18/10/2022Colorectal Cancer Uscsxeamm73/10/2022Diabetes Ajmgraawa87, 12/15/2013Fecal Occult Blood2022Lipid Boncrgerz02/10/8238Bcepqombekrtp91/10/2022Covid-19 Vaccine ( - season)2025Influenza Vaccine (#1)2025HIV QdcdvibraFhybfwonz24/21/2014 Procedures Procedure NamePriorityDate/TimeAssociated DiagnosisCommentsCOMPREHENSIVE METABOLIC BXEMMTrhkrce35/05/2014 8:48 AM EST Bone marrow donor IDM PANEL KJGRJEblctkf50/21/2014 12:10 PM EST Bone marrow donor from Last 3 Months or Most Recently Relevant to Health Maintenance Results * (ABNORMAL) COMP METABOLIC PANEL (12/27/2013 8:48 AM EST)ComponentValueRef RangeTest MethodAnalysis TimePerformed AtPathologist SignatureProtein, Total 7.06.0 - 8.4 g/dLBLANCHARD VALLEY [facility]ALTH SYSTEM [facility] MAIN LABORATORYAlbumin4.03.5 - 5.0 g/dL [facility] MAIN LABORATORYCalcium9.08.5 - 10.5 mg/dLBLANCHARD VALLEY [facility]ALTH SYSTEM [facility] MAIN LABORATORYBilirubin, Total0.40.0 - 1.5 mg/dLSHELBY MEMORIAL HOSPITAL LABORATORYAlkaline Tkpsuebvvcw1659 - 150 U/LCUNIVERSITY H[facility]PITALS [facility] MAIN LABORATORY OVH582 - 40 U/LCELYRIA MEMORIAL [facility]ITAL ZBUDWOIPUDCrcltwo85(L)65 - 100 mg/dL [facility] LABORATORYBUN7(L)8 - 25 mg/dLSHELBY MEMORIAL HOSPITAL LABORATORYCreatinine0.810.70 - 1.40 mg/dLSHELBY MEMORIAL HOSPITAL LABORATORY Grrqss032249 - 148 mmol/LCELYRIA MEMORIAL HOSPITAL LABORATORYPotassium4.03.5 - 5.0 mmol/LCUNIVERSITY HOSPITALS PAR[facility] MAIN WYESAGIENTNfinsghu31627 - 110 mmol/LCELYRIA [facility]ORIAL [facility]ITAL NXNVVNFEQPER18026 - 32 mmol/LCELYRIA MEMORIAL HOSPITAL LABORATORYAnion Gap70 - 15 mmol/LCELYRIA [facility] JZZURZTZTHNQD397 - 45 U/LCELYRIA MEMORIAL [facility]ITAL LABORATORYeGFR->60S[facility] LAB[facility] eGFR-All Other Races>60.[facility] LABORATORYComment: eGFR (Estimated GFR) Units of [...] StatusRegis Cr MDLABORATORYFinal ResultPerforming OrganizationAddressCity/State/ZIP CodePhone Number [facility] [address] [place] [address] * (ABNORMAL) IDM PANEL ADULT (12/15/2013 12:10 PM EST)ComponentValueRef Range Test MethodAnalysis TimePerformed AtPathologist SignatureHBsAgNegative or NonreactiveNEGNRSHELBY MEMORIAL HOSPITAL LABORATORYanti-HCVNegative or NonreactiveNEGNRSHELBY MEMORIAL HOSPITAL LABORATORYanti-HIV1/2Negative or NonreactiveNEGNRSHELBY MEMORIAL HOSPITAL LABORATORYanti-HBcNegative or NonreactiveNEGNRCLEVELAND CLINIC MAIN LABORATORYanti-HTLV I/IINegative or NonreactiveNEGNRBLANCHARD VALLEY [facility] MAIN LABORATORYSTSNegative or Nonreactive NEGMIDDLETOWN HOSPITAL LABORATORYCMVPositive or Reactive(A)NEGMIDDLETOWN HOSPITAL LABORATORYHIVNATNegative or NonreactiveNEGMIDDLETOWN HOSPITAL LABORATORYHCVNATNegative or NonreactiveNEGSUMMA HEALTH MAIN LABORATORY HBVNATNegative or NonreactiveNEGMIDDLETOWN HOSPITAL LABORATORYWNVNAT Negative or NonreactiveNEGMIDDLETOWN HOSPITAL LABORATORYChagasNegative or NonreactiveNEGMIDDLETOWN HOSPITAL LABORATORYExpiration of [id number] Test kits are FDA approved for Donor Screening Testing. Test performed by: [facility], [address] [place] [id number], CLIA No. [id number].[facility] LABORATORYSpecimen (Source)Anatomical Location / LateralityCollection Method / VolumeCollection TimeReceived TimeBlood specimen (specimen)BLOOD SPECIMEN / Pvrhmqs0012/15/2013 12:10 PM EST12/15/2013 12:16 PM EST Narrative Authorizing ProviderResult TypeResult StatusAamiguel angel Cr MDLABORATORYFinal ResultPerforming OrganizationAddressCity/State/ZIP CodePhone Number [facility] [address] [place] [address] from Last 3 Months or Most Recently Relevant to Health Maintenance Insurance * Guarantor: Elif Gutiérrez TypeRelation to PatientDate of BirthPhone Billing AddressPersonal/TmqjklPijq1975 [address] [address] * Guarantor: Gutiérrez, Elif AAccount TypeRelation to PatientDate of BirthPhone Billing RzzsxsfGvjyxQvid1975 [address] [address] Care Teams Team MemberRelationshipSpecialtyStart DateEnd Amos Vazquez MD PCP - GeneralFamily Medicine11/15/13 Addie Mojica, [address] [place] [address] Registered NurseBlood and Marrow Transplant12/06/13
--- OUTSIDE RECORDS SUMMARY | 2025-09-25 06:58 | XMS_ITS | Encounter Summary ---
Author Organization [facility] Address [address] [place] [address] Care Team Providers Care Check Writer Salesperson Name Role Phone Pat Dominique MD Primary Care Provider [phone] Encounter Details DateTypeDepartmentCare Team (Latest Contact Info)Aaoumuxondx32/19/2025Telephone [facility] [address] [place] [address] Maria Dolores Jose MA Social History Tobacco UseTypesPacks/DayYears UsedDateSmoking Tobacco: NeverSmokeless Tobacco: NeverAlcohol UseStandard Drinks/WeekCommentsNot Currently0 (1 standard drink = 0.6 oz pure alcohol)[place] Safety & EnvironmentAnswerDate RecordedFear of Current or Ex-PartnerNot on file12/16/2023Emotionally AbusedNot on file12/16/2023hysically AbusedNot on file12/16/2023Sexually AbusedNot on file12/16/2023hysically or Sexually AbusedNot on file12/16/2023CommentsNoSex and Gender Information ValueDate RecordedSex Assigned at BirthNot on fileLegal QmhRldukr80/29/2022 10:21 PM EDTGender IdentityNot on fileSexual OrientationNot on filedocumented as of this encounter Miscellaneous Notes * Telephone Encounter - Maria Dolores Jose MA - 09/12/2025 8:35 AM EST Patient had repeat BMP drawn this morning. 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 She said since stopping hydrochlorothiazide last week she has been more SOB and has had more LE edema. Please advise. Thanks. documented in this encounter Plan of Treatment Not on file documented as of this encounter Visit Diagnoses Not on filedocumented in this encounter Care Teams Team MemberRelationshipSpecialtyStart DateEnd Date Pat Dominique MD [address] [facility] [address] PCP - Wuhrliw83/2/22documented as of this encounter
--- OUTSIDE RECORDS SUMMARY | 2025-09-25 06:58 | XMS_ITS | Clinical Summary ---
Author Organization [employer] [facility] tem Address [id number] [address] [place] [address] Care Team Providers Care Database Manager Name Role Phone Pat Dominique MD Primary Care Provider [phone] Allergies Active AllergyReactionsCriticalityNoted DateCommentsPropoxyphene N-Acetaminophen Didnhtiz52/28/4904BgmjowsmowftObebg06/28/6444YbfvsnkbxeUygzntlt43/21/2014 Oxycodone-EjkjxgmqmpxugMxlbijvk47/21/2014 Medications MedicationSigDispense QuantityRefillsLast FilledStart DateEnd DateStatus buPROPion [...] UseTypesPacks/DayYears UsedDateSmoking Tobacco: NeverSmokeless Tobacco: NeverPHQ-2AnswerDate RecordedTotal Ffdvg504/10/2022ChildcareAnswerDate Recorded NabviqdgrXbzcxeq63/10/2019EmploymentAnswerDate RecordedEmploymentUnknown 04/03/2019CommentsUnknownSex and Gender InformationValueDate RecordedSex Assigned at BirthNot on fileLegal CmsZwhgsq73/04/2015 2:10 PM EDTGender Identity Not on fileSexual OrientationNot on file Last Filed Vital Signs Vital SignReadingTime TakenCommentsBlood Sxxdmowq907/7708 10:39 AM EDT Yizul579406/03/2022 10:39 AM EDTTemperature--Respiratory Rate--Oxygen Saturation-- Inhaled Oxygen Concentration--Aqezud96.1 kg (214 lb)06/03/2022 10:39 AM EDT Tcfixh517.6 cm (5' 4 )06/03/2022 10:39 AM EDTBody Mass Index36.7306/03/2022 10:39 AM EDT Plan of Treatment Health MaintenanceDue DateLast DoneCommentsDepression Vduylhpvk08/10/1989Tobacco Wsoffreem12/10/1989Adult BMI Fqxngqbsc15/10/1995DTaP,Tdap and Td Vaccines (1 - Tdap)1996Pap Smear1998COVID-19 Vaccine ( - 2024- season) 510/, 11/21/2020, 10/23/2020Influenza Daxtvhf0006/25/2025 08/19/2018 [employer] Not on file Insurance Care Teams Team MemberRelationshipSpecialtyStart DateEnd Date Pat Dominique MD [facility] [place] [address] PCP - GeneralFamily Iqubvivk33/28/21
--- OUTSIDE RECORDS SUMMARY | 2025-09-25 06:58 | XMS_ITS | Clinical Summary ---
Author Organization [facility] Address [address] [place] [address] Care Team Providers Care Skiff Operator Name Role Phone Pat Dominique MD Primary Care Provider [phone] Nlel Aguilar DO Unavailable [phone] Allergies Active AllergyReactionsCriticalityNoted DateCommentsMeperidine HclGI intolerance 02/25/2024Oxycodone-AcetaminophenGI fmfniwtrddg32/03/2024 Medications MedicationSigDispense QuantityRefillsLast FilledStart DateEnd DateStatus buPROPion [...] tablet Take 40 mg by mouth at mwpxoai6012/01/2023ctive nitroglycerin (Nitrostat) 0.[address] 0.4 mg under the tongue every 5 (five) minutes if needed for chest pain Active Active Problems ProblemNoted DateDiagnosed DatePrimary hqztejcg13/06/2024Tension-type headache, not divfkjpbiro85/06/8811Ssvhzo42/06/2128Mgagqhp08/06/2024Eye exam abnormal 02/25/2024bnormal MRI02/25/20242092Yxpbxhsfgd57/03/2024Intractable tension-type fsnjiull00/03/2024erebrovascular aljgaii9902/25/2024 Family History Medical HistoryRelationNameCommentsCoronary artery diseaseFatherHyperlipidemia FatherStrokeFatherHyperlipidemiaMotherHypertensionMotherOsteoarthritisMother CancerSisterHyperlipidemiaSisterKidney diseaseSisterOsteoarthritisSisterRelation NameStatusCommentsFatherMotherSister Social History Tobacco UseTypesPacks/DayYears UsedDateSmoking Tobacco: NeverSmokeless Tobacco: Never Tobacco Cessation:Counseling Given: Not Answered Alcohol UseStandard Drinks/WeekCommentsNever0 (1 standard drink = 0.6 oz pure alcohol)CommentsUnknownSex and Gender InformationValueDate RecordedSex Assigned at XfsjjYfcfau90/05/2024 3:50 PM EDTLegal NytCpyeau89/15/2023 7:17 PM EDTGender UregmwxdTxswnk36/05/2024 3:50 PM EDTSexual OrientationNot on file Last Filed Vital Signs Vital SignReadingTime TakenCommentsBlood Smlvreem255/6810/09/2024 11:00 AM EST Vrkbv148310/09/2024 11:00 AM ESTTemperature--Respiratory Rate--Oxygen Saturation 98%10/09/2024 11:00 AM ESTInhaled Oxygen Concentration--Kgqnyh76.2 kg (214 lb 4 oz)10/09/2024 11:00 AM LVSPxtsty263.1 cm (5' 5 )10/09/2024 11:00 AM ESTBody Mass Index35.6510/09/2024 11:00 AM EST Plan of Treatment Not on file Insurance Care Teams Team MemberRelationshipSpecialtyStart DateEnd Date Pat Dominique MD PCP - General02/27/24 Nell Aguilar DO [address] [place] [address] Referring WjkuuvmvuLvqzvlvdm44/16/24
--- OUTSIDE RECORDS SUMMARY | 2025-09-25 06:58 | XMS_ITS | Encounter Summary ---
Author Organization [facility] Address [address] [place] [address] Care Team Providers Care Aids Nurse Name Role Phone Pat Dominique MD Primary Care Provider [phone] Encounter Details DateTypeDepartmentCare Team (Latest Contact Info)Bxgqgznfqzb50/19/2025Orders Only [facility] [address] [place] [address] Maria Dolores Jose MA Essential hypertension (Primary Dx) Social History Tobacco UseTypesPacks/DayYears UsedDateSmoking Tobacco: NeverSmokeless Tobacco: NeverAlcohol UseStandard Drinks/WeekCommentsNot Currently0 (1 standard drink = 0.6 oz pure alcohol)[place] Safety & EnvironmentAnswerDate RecordedFear of Current or Ex-PartnerNot on file12/16/2023Emotionally AbusedNot on file4Physically AbusedNot on file12/16/2023Sexually AbusedNot on file4Physically or Sexually AbusedNot on file4CommentsNoSex and Gender Information ValueDate RecordedSex Assigned at BirthNot on fileLegal YyaIysscw54/29/2022 10:21 PM EDTGender IdentityNot on fileSexual OrientationNot on filedocumented as of this encounter Plan of Treatment NameTypePriorityAssociated DiagnosesOrder ScheduleBasic metabolic panelLab Routine Essential hypertension Expected: 09/12/2025 (Approximate), Expires: 09/12/2026documented as of this encounter Visit Diagnoses Diagnosis Essential hypertension- Primary Unspecified essential hypertension documented in this encounter Care Teams Team MemberRelationshipSpecialtyStart DateEnd Date Pat Dominique MD [address] [facility] [address] PCP - Cuipjqt00/2/22documented as of this encounter
--- OUTSIDE RECORDS SUMMARY | 2025-09-25 06:58 | XMS_ITS | Encounter Summary ---
Author Organization [facility] Address [address] [place] [address] Care Team Providers Care Power Plant Electrician Name Role Phone Pat Dominique MD Primary Care Provider [phone] Reason for Referral * Consultation (Routine) - Pending ReviewSpecialtyDiagnoses / ProceduresReferred By ContactReferred To ContactNephrology Diagnoses Elevated serum creatinine Hypokalemia Procedures [place] OFFICE/OUTPATIENT [facility] 60 MINUTES Vidhi Anderson MD [address] [facility] [address] [facility] [place] [address] Phone: tel: fax: Referral IDStatusReasonStart DateExpiration DateVisits RequestedVisits [id number] Review Specialty Services Required Encounter Details DateTypeDepartmentCare Team (Latest Contact Info)Bftumgpofxy94/26/2025Telephone [facility] [address] [place] [address] Rebeca, PRICILLA Whitten Social History Tobacco UseTypesPacks/DayYears UsedDateSmoking Tobacco: NeverSmokeless Tobacco: NeverAlcohol UseStandard Drinks/WeekCommentsNot Currently0 (1 standard drink = 0.6 oz pure alcohol)UT Safety & EnvironmentAnswerDate RecordedFear of Current or Ex-PartnerNot on file12/16/2023Emotionally AbusedNot on file12/16/2023hysically AbusedNot on file12/16/2023Sexually AbusedNot on file12/16/2023hysically or Sexually AbusedNot on file12/16/2023CommentsNoSex and Gender Information ValueDate RecordedSex Assigned at BirthNot on fileLegal NobHbhymz49/29/2022 10:21 PM EDTGender IdentityNot on fileSexual OrientationNot on filedocumented as of this encounter Miscellaneous Notes * Telephone Encounter - Maria Dolores Jose MA - 09/19/2025 9:25 AM EST Images from the original note were not included. Regarding lab results from 09/19/2025: MD Maria Dolores Polanco MA Please have her double her potassium supplementation daily and repeat a BMP in 5 days. Her serum creatinine is elevated and as discussed I would recommend seeing a procedure manager. Thank you. Patient made aware. Orders sent. documented in this encounter Plan of Treatment NameTypePriorityAssociated DiagnosesOrder ScheduleBasic metabolic panelLab Routine Elevated serum creatinine Hypokalemia Expected: 09/19/2025 (Approximate), Expires: 09/19/2026NameTypePriority Associated DiagnosesOrder ScheduleAmbulatory referral to NephrologyOutpatient ReferralRoutine Elevated serum creatinine Hypokalemia Expected: 09/19/2025 (Approximate), Expires: 03/19/2026documented as of this encounter Visit Diagnoses Diagnosis Elevated serum creatinine- Primary Other nonspecific findings on examination of blood Hypokalemia Hypopotassemia documented in this encounter Care Teams Team MemberRelationshipSpecialtyStart DateEnd Date Pat Dominique MD [address] [facility] [address] PCP - Lkhhbur64/2/22documented as of this encounter
[2025-09-25 07:27] LABS: Anion Gap 12.6; Blood Urea Nitrogen 9.0 mg/dL (7.0-18.0); Calcium 8.9 mg/dL (8.5-10.1); Carbon Dioxide 29.1 mmol/L (21.0-32.0); Chloride 104 mmol/L (98-107); Estimated GFR (African America >60 (>=60 mL/min/1.73m^2); Estimated GFR (Non-African Ame 50 (>=60 mL/min/1.73m^2); Glucose 105 mg/dL (74-106); Potassium 3.7 mmol/L (3.5-5.1); Sodium 142 mmol/L (136-145)
== END 2025-09-25 06:54 | disposition home or self-care (01) ==
LOC: LAB 06:55
PROVIDERS: PCP Family Medicine; Visit Provider Internal Medicine Interventional Cardiology
DX: R79.89 Other specified abnormal findings of blood chemistry (principal); E87.6 Hypokalemia
CPT/HCPCS: 36415; 80048

== ENCOUNTER 2025-10-03 06:58 | Outpatient (OUT) | payer BC, SELFPAY ==
--- NOTE | 2025-10-03 | MM_ITS ---
Patient Name: ELVIA GUTIÉRREZ MR#: [id number] : 1975 Exam Date: 10/03/2025 Ordering Doctor: DR TESS HUSTON M.D. RADIOLOGY REPORT PROCEDURE: MM TOMOSYNTHESIS SCREENING BI COMPARISON: MM DIAGNOSTIC MAMMO UNILAT RT, 07/27/2023. MM TOMOSYNTHESIS SCREENING BI, 07/13/2023. MG MAMM SCREEN 3D AMANUEL CAD, 07/10/2022. MG MAMM AMANUEL SCRN W CAD DIG, 10/03/2015. INDICATIONS: SCREENING FOR MALIGNANCY OF BREAST Calculator Name NCI Breast Cancer Risk Assessment Tool 5 Year Breast Cancer Risk Not Reported. Lifetime Breast Cancer Risk Not Reported. Personal Breast Cancer No Personal Ovarian Cancer No Treatments None Family Cancers None LOCATION: [facility] BREAST COMPOSITION: The breasts are heterogeneously dense, which may obscure small masses. FINDINGS: RIGHT BREAST: No significant suspicious finding. LEFT BREAST: No significant suspicious finding. DIAGNOSTIC CATEGORY 1--NEGATIVE. RECOMMENDATIONS: ROUTINE MAMMOGRAM AND CLINICAL EVALUATION IN 12 MONTHS. Dictated by: Sina Ruiz DO on 10/04/2025 at 15:00 Approved by: Sina Ruiz DO on 10/04/2025 at 15:04
--- NOTE | 2025-10-03 | US_ITS ---
The [address] [address] Patient Name: ELVIA GUTIÉRREZ MRN: [id number] date: 1975 Sex: F Assigned Patient Location: US Current Patient Location: US Accession/Order Number: [id number] Exam Date: 10/03/2025 07:01 Report Date: 10/03/2025 10:33 At the request of: TESS HUSTON MD Procedure: US renal BI BILATERAL RENAL AND BLADDER ULTRASOUND CLINICAL HISTORY: FAMILY HISTORY OF POLYCYSTIC KIDNEY DISEASE. Abnormal labs. COMPARISON: None Estimation of renal size is approximately 10.4 cm on the right and 10.3 cm on the left. No shadowing calculi or hydronephrosis are identified. No renal mass lesions were imaged. There is no perinephric fluid. The urinary bladder is partially distended with a volume of 77 mL. No contour or intraluminal abnormalities are seen. US/US renal BI IMPRESSION: NO OBSTRUCTIVE UROPATHY. Impression dictated by: Kristal Bernstein M.D. 10/03/2025 10:33 AM Dictation Location: [place] [address] Electronically authenticated by: [id number] Y Date: 10/03/2025 10:33
--- OUTSIDE RECORDS SUMMARY | 2025-10-03 07:01 | XMS_ITS | Clinical Summary ---
Author Organization [facility] Address [address] [place] [address] Care Team Providers Care Phlebotomist Medical Lab Assistant Name Role Phone Pat Dominique MD Primary Care Provider [phone] Allergies Active AllergyReactionsCriticalityNoted OtnbGjatdizmTnaoeenqzpvbGndpo71/28/2021 MeperidineGI intolerance,Other12/15/2013Oxycodone-AcetaminophenOther,GI gzehzqlwajk25/21/2014Propoxyphene N-AcetaminophenOther,GI atzuzjiqghx76/21/2014 Medications MedicationSigDispense QuantityRefillsLast FilledStart DateEnd DateStatus buPROPion XL (Wellbutrin XL) 300 mg 24 hr tablet Take 300 mg by mouth in the morning.Active DULoxetine (Cymbalta) [address] capsule Take 30 mg by mouth in the morning.Active hydroCHLOROthiazide (HYDRODiuril) 25 mg tablet Indications:Essential hypertensionTAKE 1 TABLET BY MOUTH IN THE MORNING 90 tablet 5Active clopidogrel (Plavix) 75 mg tablet Indications:Coronary artery disease of pauma artery of pauma heart with stable angina pectorisTAKE 1 TABLET BY MOUTH ONCE DAILY DIRECTED 90 tablet 5Active metoprolol tartrate (Lopressor) 25 mg tablet Indications:Coronary artery disease of pauma artery of pauma heart with stable angina pectorisTAKE 1 TABLET [...] 40 mg tablet Indications:Coronary artery disease of pauma artery of pauma heart with stable angina pectorisTAKE 1 TABLET [...] tablet /ctive Active Problems ProblemNoted DateDiagnosed DatePrimary dwwgpuck76/06/5971Riosnu98/06/2024Vertigo 02/28/2024bnormal MRI02/25/20248012Gdvlebggnv34/03/2024erebrovascular disease 02/25/2024Eye exam qgjeppnq64/03/2024Tension type kgzicgvv31/03/2024hest pain 12/07/2022 Overview (12/07/2022): Added automatically from request for surgery [id number] Paroxysmal ocelkgxgnik44/06/2020Prinzmetal ybgyta5005/30/20205851Ebxmi-Wjtncrdip-Sngmg ophpozy2605/30/20200104Arckss83/05/2014 Overview (09/25/2022): Last Assessment & Plan: She [...] for the next 7 days. Encounters DateTypeDepartmentCare TvflQvtkjerrgvp32/03/2025Telephone [place] [address] [place] [facility] [place] [address] Maria Dolores Jose MA 09/19/2025Telephone [address] [place] [address] Maria Dolores Jose MA 09/12/2025Orders Only [address] [place] [address] Maria Dolores Jose MA Essential hypertension (Primary Dx)09/12/2025Telephone [address] [place] [address] Maria Dolores Jose MA 09/06/2025Telephone [address] [place] [address] Maria Dolores Jose MA 08/28/2025Orders Only [address] [place] [address] Maria Dolores Jose MA Hypokalemia (Primary Dx)08/27/2025Telephone [address] [place] [address] Maria Dolores Jose MA from Last 3 [...] ValueDate RecordedSex Assigned at BirthNot on fileLegal PelVgsewm70/29/2022 10:21 PM EDTGender IdentityNot on fileSexual OrientationNot on file Last Filed Vital Signs Vital SignReadingTime TakenCommentsBlood Rtyqwdmn300/7207 9:25 AM EDT Bjntk5951 9:25 AM EDTTemperature--Respiratory Rlus1121 3:30 PM ESTOxygen Pqkarvbgye57%05/03/2025 9:25 AM EDTInhaled Oxygen Concentration-- Yvqvzo88.3 kg (208 lb)05/03/2025 9:25 AM THRIeqxbv375.6 cm (5' 6 )05/03/2025 9:25 AM EDTBody Mass Index33.5707 9:25 AM EDT Plan of Treatment Health MaintenanceDue DateLast DoneCommentsCT Opvkjxpsgkjq1977Colonoscopy 1977Colorectal Cancer Blrqmrhqx1977FIT-DNA1977FIT1977 FOBT1977 5387Sbootokheewhv1977Depression Eoinobsns99/10/1989Hepatitis B Vaccines (1 of 3 - 19+ 3-dose series)1996Pneumococcal Vaccine: Pediatrics (0 to 5 Years) and At-Risk Patients (6 to 64 Years) (1 of 2 - PCV)1996Pap Smear1998Adult Axyzswi6309/03/1999Cervical Cancer Bhggudrny82/10/2007 HPV/Xtdtkd5809/03/20072003Ewkdnfqyt09/10/2017COVID-19 Vaccine ( - 2024- season) , 11/21/2020, 10/23/2020Influenza Vaccine (#1)2025 08/16/2024, [...] MemberSubscriberPlan / Payer (Effective 2022-Present)Name:Elif Fox Member ID:[id number] Relation to Subscriber:SelfName:Elif Fox Subscriber ID:[id number] Payer ID:[id number] (NAIC) Type:Not on file Address: [address] [place] [id number] Care Teams Team MemberRelationshipSpecialtyStart DateEnd Date Pat Dominique MD [address] PCP - Pnzuasu37/2/22
--- OUTSIDE RECORDS SUMMARY | 2025-10-03 07:01 | XMS_ITS | Clinical Summary ---
Author Organization [employer] [facility] tem Address [id number] [address] [place] [address] Care Team Providers Care Mechanical Test Engineer Name Role Phone Pat Dominique MD Primary Care Provider [phone] Allergies Active AllergyReactionsCriticalityNoted DateCommentsPropoxyphene N-Acetaminophen Gvvhcpfx60/28/1584OvnczmfukrzkSivmq33/28/4457ZooidlyzzfBfmbcuxd50/21/2014 Oxycodone-JpsceiyzpliroTrfkomkg86/21/2014 Medications MedicationSigDispense QuantityRefillsLast FilledStart DateEnd DateStatus buPROPion [...] UseTypesPacks/DayYears UsedDateSmoking Tobacco: NeverSmokeless Tobacco: NeverPHQ-2AnswerDate RecordedTotal Dpexp905/10/2022ChildcareAnswerDate Recorded GrmcuavxgBrtareb75/10/2019EmploymentAnswerDate RecordedEmploymentUnknown 04/03/2019CommentsUnknownSex and Gender InformationValueDate RecordedSex Assigned at BirthNot on fileLegal BiaRldsff56/04/2015 2:10 PM EDTGender Identity Not on fileSexual OrientationNot on file Last Filed Vital Signs Vital SignReadingTime TakenCommentsBlood Ngigrfew710/7708 10:39 AM EDT Gtypw493306/03/2022 10:39 AM EDTTemperature--Respiratory Rate--Oxygen Saturation-- Inhaled Oxygen Concentration--Uvzddo03.1 kg (214 lb)06/03/2022 10:39 AM EDT Ddsxog581.6 cm (5' 4 )06/03/2022 10:39 AM EDTBody Mass Index36.7306/03/2022 10:39 AM EDT Plan of Treatment Health MaintenanceDue DateLast DoneCommentsDepression Qwcgdyjxu74/10/1989Tobacco Gxlrqwfpk46/10/1989Adult BMI Ytmngndxd11/10/1995DTaP,Tdap and Td Vaccines (1 - Tdap)1996Pap Smear1998COVID-19 Vaccine ( - 2024- season) 510/, 11/21/2020, 10/23/2020Influenza Jxvjxlc6706/25/2025 08/19/2018 Medical Devices Not on file Insurance Care Teams Team MemberRelationshipSpecialtyStart DateEnd Date Pat Dominique MD [facility] [place] [address] PCP - GeneralFamily Ywkafhac47/28/21
--- OUTSIDE RECORDS SUMMARY | 2025-10-03 07:01 | XMS_ITS | Patient Health Record ---
Author Organization [facility] Address [address] [place] [address] Care Team Providers Care Shoe Sewing Machine Operator And Tender Name Role Phone Pat Dominique MD Primary Care Provider Unavailab Rudoplh Portillo Unavailable [phone] Allergies Allergen (clinical drug ingredient) Drug/Non Drug Allergy documented on EMR Reaction Allergy Type Onset Date Status Darvocet-N 100vomitingDrug AllergyActivemeperidineDemerolvomitingDrug Allergy ActiveLevaquinhivesDrug AllergyActiveacetaminophen / oxycodonePercocetvomiting Drug AllergyActive Results Component Value Reference Range Notes XR Chest PA and Lateral (Rou ye CXR) * Reviewed date:01/18/2025 01:36:46 PM Interpretation: Performing Lab: Notes/Report: XR chest 2V Reviewed date:01/23/2025 08:08:00 AM Interpretation: Performing Lab: Notes/Report: Source Facility: [place] [address] [place] [address] XRay Report Signed Patient: ELVIA GUTIÉRREZ MR#: [id number] : 1975 Acct:[id number] Age/Sex: 49 / F ADM Date: 01/18/25 Loc: RAD Attending Dr: Rudolph Gonsalves D.O. Ordering Physician: Rudolph Gonsalves D.O. Date of Service: 01/18/25 Procedure(s): XR chest 2V Accession Number(s): [id number] cc: Pat Dominique M.D.; Rudolph Gonsalves D.O. [place] [address] Patient Name: ELVIA GUTIÉRREZ MRN: [id number] date: 1975 Sex: F Assigned Patient Location: [facility] Current Patient Location: [facility] Accession/Order Number: [id number] Exam Date: 01/18/2025 13:05 Report Date: 01/18/2025 [...] Sina Ruiz M.D.01/18/2025 1:06 PM Dictation Location: [place] [address] Electronically authenticated by: [id number] Y Date: 01/18/2025 13:06 Dictated By: Sina Ruiz D.O. Signed By: 01/18/25 1309 DD/ 1306 TD/TT: Journeyman Level Acoustic Analyst: RT pulmonary function test Reviewed date:01/25/2025 04:34:13 PM Interpretation: Performing Lab: Notes/Report: Source Facility: [place] [address] [place] [address] Respiratory Report Signed Patient: ELVIA GUTIÉRREZ MR#: [id number] : 1975 Acct:[id number] Age/Sex: 49 / F ADM Date: 01/18/25 Loc: RAD Attending Dr: Rudolph Gonsalves D.O. Ordering Physician: Rudolph Gonsalves D.O. 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: Rodolfo Morales RRT : 1975 Requested By: Rudolph Gonsalves Order Number: [id number] Reading MD: Rudolph Gonsalves Interpretive Statements Pulmonary [...] Signed By: 01/25/25 1628 DD/ 1248 TD/TT: Journeyman Level Acoustic Analyst: HEMOGLOBIN Reviewed date:01/23/2025 07:30:06 AM Interpretation: Performing Lab: Notes/Report: [facility] , Hemoglobin 13.5 12.0-16.0 g/dL Performing Lab:see noteML - [facility] LB Reason For Referral No Information Medications [...] Administration Date Status Comme nts Flu, Flucelvax (20827) 6 mos and older, single-dose syringe (3525-3546) Unknown 08/16/2024 Administered SARS-COV-2 (COVID 19 Moderna - Booster 0.25mL)Kjzvydr7508/20/2021dministered Social History Tobacco Use: Social History Observation Description Date Details (start date - stop date) Never Smoker NA - NA Tobacco Control (Standard) Question Answer Notes Tobacco use: Nonsmoker Problems Problem Type SNOMED Code ICD Code Onset Dates Problem Status W/U Status Risk Notes Problem Shortness of breath (953098011) Shortness of breath (R06.02) ActiveconfirmedProblemHyperlipidaemia (10295832)HLD (hyperlipidemia) (E78.5) Activeconfirmed Vital Signs Heart Rate 66 /min 01/23/2025 Eodhkiklqor82.0 degrees Yxaldwrege14/01/2025Respiratory Rate18 /min01/23/2025 Qikuetfs28 %01/23/2025lood pressure jujvmbaja40 mm Hg01/23/20257518Hqolfx90 in 01/23/2025lood pressure mm Hg01/23/20250192Ygoqkr459.6 lbs01/23/2025MI 35.04 kg/m201/23/2025 Procedures Procedure Date Ordered Date Performed Result Body Sit e PFT (40790, 93065, 27005) 12/27/2024 01/18/2025 N/A Encounters Encounter Location Date Provider Diagnosis [facility] [address] [place] [address] 01/23/2025 Rudolph Gonsalves Abnormal results of pulmonary function studies R94.2 and Patent foramen ovale Q21.12 [facility] [address] [place] [address] 12/27/2024 Rudolph Gonsalves Abnormal results of pulmonary [...] and cardiopulmonary vascular disease. A PFO with robln-lp-eauk shunt could cause a decreased DLCO. No [...] ACCESS PPO PLUS LOCAL PLAN [address] [place] [id number] Kwasi Gutiérrez - patient is the insured Medical (General) History Medical History History ICD Code PFO (patent foramen ovale) Q21.12 Abnormal diffusion capacity determined b y pulmonary function test R94.2 HLD (hyperlipidemia) E78.5 Surgical History Surgery Date(Month/Year) hysterectomy tubal ligationright knee arthroscopyrhinoplasty
--- OUTSIDE RECORDS SUMMARY | 2025-10-03 07:01 | XMS_ITS | Clinical Summary ---
Author Organization [facility] Address [address] [place] [address] Care Team Providers Care Boxer Operator Name Role Phone Amos Vazquez MD Primary Care Provider [phone] Addie Mojica RN Unavailable [phone] Allergies Active AllergyReactionsCriticalityNoted DateCommentsPropoxyphene N-Acetaminophen Fjeipduq95/21/5309GwilwpfyeeLcodwflw22/21/2014Oxycodone-AcetaminophenVomiting 12/15/2013 Medications MedicationSigDispense QuantityRefillsLast FilledStart DateEnd DateStatus PRISTIQ 50 mg 24 hr tablet Take 50 mg by mouth once daily.12/14/2013ctive HYDROcodone-acetaminophen 5-325 mg per tablet Take 1-2 tablets by mouth every 6 hours as needed for Pain. 30 tablet ctive Active Problems ProblemNoted DateDiagnosed GhvqXfxjcj61/05/2014 Assessment & Plan (12/27/2013 11:30 AM EST): [...] InformationValueDate RecordedSex Assigned at BirthNot on fileLegal HaxGtagsm03/02/2012 8:55 AM ESTGender Identity Not on fileSexual OrientationNot on fileOccupationIndustryJob Start DateJob End DateCardiovascular TechNot on fileNot on fileNot on file Last Filed Vital Signs Vital SignReadingTime TakenCommentsBlood Ndaeacmg337/6903 2:10 PM EDT Twphk0868 2:10 PM BUUYtoodzqhknd99.8 ??C (98.2 ??F)01/16/2014 2:10 PM EDTRespiratory Znjf1799 2:10 PM EDTOxygen Zlmboeagfx48%01/16/2014 2:10 PM EDTInhaled Oxygen Concentration--Vcyxzx92 kg (200 lb 9.9 oz)01/16/2014 2:10 PM BZQAkkgkb714 cm (5' 4.96 )01/16/2014 2:10 PM EDTBody Mass Index33.42 01/16/2014 2:10 PM EDT Plan of Treatment Health MaintenanceDue DateLast DoneCommentsAnxiety Fqqljwfho26/10/1995Depression Ypxibwkfp53/10/1995Hepatitis C Hsnvqpmcy57/10/1995DTaP,Tdap,Td Vaccine (1 - Tdap)1996Hepatitis B Vaccine (1 of 3 - 19+ 3-dose series)1996 Cervical Cancer Royrmwrer31/10/1998Mammogram Tiifpuhbp35/10/2017CT Colonography 2Cologuard (FIT-DNA)0748Bzhjacwvhmb64/10/2022Colorectal Cancer Wwoxgbnbt10/10/2022Diabetes Fqnyuavps01, 12/15/2013Fecal Occult Blood2022Lipid Nzrbntcsl33/10/4058Jhrpdqreqhluf72/10/2022Covid-19 Vaccine ( - season)2025Influenza Vaccine (#1)2025HIV UwgszxdzkPmtklrcll68/21/2014 Procedures Procedure NamePriorityDate/TimeAssociated DiagnosisCommentsCOMPREHENSIVE METABOLIC ALYEGFlnlnro59/05/2014 8:48 AM EST Bone marrow donor IDM PANEL QJPWJYttknsx76/21/2014 12:10 PM EST Bone marrow donor from Last 3 Months or Most Recently Relevant to Health Maintenance Results * (ABNORMAL) COMP METABOLIC PANEL (12/27/2013 8:48 AM EST)ComponentValueRef RangeTest MethodAnalysis TimePerformed AtPathologist SignatureProtein, Total 7.06.0 - 8.4 g/dLGRAND LAKE JO[facility]NSHIP [facility] MAIN LABORATORYAlbumin4.03.5 - 5.0 g/dL [facility] MAIN LABORATORYCalcium9.08.5 - 10.5 mg/dLGRAND LAKE JOINT [facility]NSH[facility] MAIN LABORATORYBilirubin, Total0.40.0 - 1.5 mg/dLCLEVELAND CLINIC [facility] LABORATORYAlkaline Hvgeuxnpxte4295 - 150 U/LCAVITA [facility]ALTH [facility] MAIN LABORATORY GMK694 - 40 U/LCVAN WERT [facility] NGIZTXIGRLRxjdncw19(L)65 - 100 mg/dL [facility] LABORATORYBUN7(L)8 - 25 mg/dLCLEVELAND CLINIC [facility]ENTOR [facility]OS[facility] LABORATORYCreatinine0.810.70 - 1.40 mg/dLCLEVELAND CLINIC [facility] LABORATORY Qnjolu977690 - 148 mmol/LCVAN WERT [facility] LABORATORYPotassium4.03.5 - 5.0 mmol/LCAVITA [facility] MAIN NUNQBYLWJEPdcoprmp59640 - 110 mmol/LCV[facility] BNJOUMLSYUHA46497 - 32 mmol/LCV[facility] LABORATORYAnion Gap70 - 15 mmol/LCV[facility] LBDRGZSVSFWDK658 - 45 U/LCV[facility] LABORATORYeGFR->60[facility] eGFR-All Other Races>60.[facility] LABORATORYComment: eGFR (Estimated GFR) Units of [...] StatusRegis Cr MDLABORATORYFinal ResultPerforming OrganizationAddressCity/State/ZIP CodePhone Number [facility] [address] [place] [address] * (ABNORMAL) IDM PANEL ADULT (12/15/2013 12:10 PM EST)ComponentValueRef Range Test MethodAnalysis TimePerformed AtPathologist SignatureHBsAgNegative or NonreactiveNEGNRCLEVELAND CLINIC MENTOR [facility]OS[facility]ITAL LABORATORYanti-HCVNegative or NonreactiveNEGNRCLEVELAND [facility]IC [facility] LABORATORYanti-HIV1/2Negative or NonreactiveNEGNRCLEVELAND CL[facility]IC [facility] LABORATORYanti-HBcNegative or NonreactiveNEGNRCLEVELAND CLINIC MAIN LABORATORYanti-HTLV I/IINegative or NonreactiveNEGNRGRAND LAKE [facility] MAIN LABORATORYSTSNegative or Nonreactive NEGTHE [facility] LABORATORYCMVPositive or Reactive(A)NEGTHE [facility] LABORATORYHIVNATNegative or NonreactiveNEGTHE [facility] LABORATORYHCVNATNegative or NonreactiveNEGBLANCHARD [facility] MAIN LABORATORY HBVNATNegative or NonreactiveNEGTHE CHRIST [facility]ITAL LABORATORYWNVNAT Negative or NonreactiveNEGTHE [facility] LABORATORYChagasNegative or NonreactiveNEGTHE [facility] LABORATORYExpiration of [id number] Test kits are FDA approved for Donor Screening Testing. Test performed by: [facility], [address] [place] [id number], CLIA No. [id number].[facility] LABORATORYSpecimen (Source)Anatomical Location / LateralityCollection Method / VolumeCollection TimeReceived TimeBlood specimen (specimen)BLOOD SPECIMEN / Mbxnvoe4612/15/2013 12:10 PM EST12/15/2013 12:16 PM EST Narrative Authorizing ProviderResult TypeResult StatusAamiguel angel Cr MDLABORATORYFinal ResultPerforming OrganizationAddressCity/State/ZIP CodePhone Number [facility] [address] [place] [address] from Last 3 Months or Most Recently Relevant to Health Maintenance Insurance * Guarantor: Elif Gutiérrez TypeRelation to PatientDate of BirthPhone Billing AddressPersonal/BfnpdhUdqh1975 [address] [address] * Guarantor: Gutiérrez, Elif AAccount TypeRelation to PatientDate of BirthPhone Billing ZkamwnpYizjaPjqo1975 [address] [address] Care Teams Team MemberRelationshipSpecialtyStart DateEnd Amos Vazquez MD PCP - GeneralFamily Medicine11/15/13 Addie Mojica, BELÉN [address] [place] [address] Registered NurseBlood and Marrow Transplant12/06/13
--- OUTSIDE RECORDS SUMMARY | 2025-10-03 07:01 | XMS_ITS | Clinical Summary ---
Author Organization [facility] Address [address] [place] [address] Care Team Providers Care Card Game Operator Name Role Phone Pat Dominique MD Primary Care Provider [phone] Nell Aguilar DO Unavailable [phone] Allergies Active AllergyReactionsCriticalityNoted DateCommentsMeperidine HclGI intolerance 02/25/2024Oxycodone-AcetaminophenGI wacezowkhkh00/03/2024 Medications MedicationSigDispense QuantityRefillsLast FilledStart DateEnd DateStatus buPROPion [...] tablet Take 40 mg by mouth at tpswwhi2212/01/2023ctive nitroglycerin (Nitrostat) 0.[address] 0.4 mg under the tongue every 5 (five) minutes if needed for chest pain Active Active Problems ProblemNoted DateDiagnosed DatePrimary fguqcloz06/06/2024Tension-type headache, not wbcwurfmlyi09/06/1808Lexcjc50/06/2254Naihbxe47/06/2024Eye exam abnormal 02/25/2024bnormal MRI02/25/20247921Xjslevycib2024Intractable tension-type xtymfmmp47/03/2024erebrovascular zvodpvm1102/25/2024 Family History Medical HistoryRelationNameCommentsCoronary artery diseaseFatherHyperlipidemia FatherStrokeFatherHyperlipidemiaMotherHypertensionMotherOsteoarthritisMother CancerSisterHyperlipidemiaSisterKidney diseaseSisterOsteoarthritisSisterRelation NameStatusCommentsFatherMotherSister Social History Tobacco UseTypesPacks/DayYears UsedDateSmoking Tobacco: NeverSmokeless Tobacco: Never Tobacco Cessation:Counseling Given: Not Answered Alcohol UseStandard Drinks/WeekCommentsNever0 (1 standard drink = 0.6 oz pure alcohol)CommentsUnknownSex and Gender InformationValueDate RecordedSex Assigned at UbafePvbfga50/05/2024 3:50 PM EDTLegal GxsQswnis52/15/2023 7:17 PM EDTGender CgcaekmtDdfkvb85/05/2024 3:50 PM EDTSexual OrientationNot on file Last Filed Vital Signs Vital SignReadingTime TakenCommentsBlood Yfhcpcue174/6810/09/2024 11:00 AM EST Rkacs878110/09/2024 11:00 AM ESTTemperature--Respiratory Rate--Oxygen Saturation 98%10/09/2024 11:00 AM ESTInhaled Oxygen Concentration--Ptzmqu78.2 kg (214 lb 4 oz)10/09/2024 11:00 AM NKTXhykld091.1 cm (5' 5 )10/09/2024 11:00 AM ESTBody Mass Index35.6510/09/2024 11:00 AM EST Plan of Treatment Not on file Insurance Care Teams Team MemberRelationshipSpecialtyStart DateEnd Date Pat Dominique MD PCP - General02/27/24 Nell Aguilar DO [id number] [place] [address] Referring LdqyzetnfBbrjigttf24/16/24
--- OUTSIDE RECORDS SUMMARY | 2025-10-03 07:01 | XMS_ITS | Encounter Summary ---
Author Organization [facility] Address [address] [place] [address] Care Team Providers Care Mud Worker Name Role Phone Pat Dominique MD Primary Care Provider [phone] Encounter Details DateTypeDepartmentCare Team (Latest Contact Info)Unywvslgbwd56/03/2025Telephone [facility] [address] [place] [address] Maria Dolores Jose MA Social History Tobacco UseTypesPacks/DayYears UsedDateSmoking Tobacco: NeverSmokeless Tobacco: NeverAlcohol UseStandard Drinks/WeekCommentsNot Currently0 (1 standard drink = 0.6 oz pure alcohol)NE Safety & EnvironmentAnswerDate RecordedFear of Current or Ex-PartnerNot on file12/16/2023Emotionally AbusedNot on file12/16/2023hysically AbusedNot on file12/16/2023Sexually AbusedNot on file12/16/2023hysically or Sexually AbusedNot on file12/16/2023CommentsNoSex and Gender Information ValueDate RecordedSex Assigned at BirthNot on fileLegal HjiPtygpg65/29/2022 10:21 PM EDTGender IdentityNot on fileSexual OrientationNot on filedocumented as of this encounter Miscellaneous Notes * Telephone Encounter - Maria Dolores Jose MA - 09/26/2025 12:46 PM EST Images from the original note were not included. Regarding lab results from 09/25/2025: MD Maria Dolores Polanco MA Creatinine continues to improve, potassium is now normal. She is to continue current regimen. Thanks Patient informed. documented in this encounter Plan of Treatment Not on file documented as of this encounter Visit Diagnoses Not on filedocumented in this encounter Care Teams Team MemberRelationshipSpecialtyStart DateEnd Date Pat Dominique MD [facility] [place]70/2/22documented as of this encounter
--- OUTSIDE RECORDS SUMMARY | 2025-10-03 07:01 | XMS_ITS | CCD ---
Author Organization [facility] Care Team Providers Care Manager Unit Name Role Phone ALESSANDRO LIN Admitting Unavailable ALESSANDRO LIN Attending Unavailable PAT HUSTON Referring Unavailable ROBEL, PAT Primary Care Unavailable Pat Huston Unavailable ROBEL, DR PAT Kumari Admitting Unavailable HUSTON, DR PAT Kumari Attending Unavailable HUSTON, DR PAT Kumari Primary Care Unavailable [place], DR NILESH Foy Consulting Unavailable HUSTON, DR [...] Admitting Unavailable [place]TAHAW[place], DR BROOKS Attending Unavailable HSUTON, DR PAT Kumari Primary Care Unavailable [place], [...] Care Provider MD Pat Huston Attending Provider [phone] Pat Huston Admitting Unavailable Pat Huston Primary Care Unavailable Pat Huston Attending Unavailable Kevon Samuel Admitting Unavailab Kevon Morejon Attending Unavailab Pat Mcgovern Primary Care Unavailable Pat Huston MD Primary Care Provider [phone] Addiedusty PARKS Jl Unavailable HARLAN NIÑO Attending Unavailable HARLAN NIÑO Attending Unavailable Pat Huston MD Primary Care Provider [phone] Harlan Niño APRN Attending Provider Pat Huston MD Primary Care Provider Harlan Niño NP Unavailable [phone] Addie PARKS Jl Unavailable VIDHI ANDERSON Attending Unavailable Allergies Allergy ClassificationReported Allergen(s)Allergy TypeDate of OnsetReaction(s) Facility (2 sources)Acetaminophen / oxyCODONEDrug Qycmyhs24-19-3050U[facility] Repository (8 sources)levoFLOXacinDrug Qudbcwv93-39-4684vduifQqmMount [facility]. [facility] Repository (2 sources)MeperidineDrug Zikifal59-17-7027Pik [facility] Repository (2 sources)Darvocet-N 100Drug allergy (disorder)95-92-6085Shi [facility] Repository (6 sources)Acetaminophen / oxyCODONEDrug AllergyUnkShopettiTrios Health [facility]ent[facility] Other (6 sources)Acetaminophen / PropoxypheneDrug AllergyUnkShopettiRanken [facility]ty [facility] Other (10 sources)Meperidine; Translations: [MEPERIDINE]Drug Lcifacn03-53-5042HbmepbyGen[facility] Hospital (8 sources)SimvastatinDrug Jalrvgd69-19-3332UtnxbbrUniversity Hospitals Parma Medical Center (1 source)Tylenol-Codeine #3Drug allergy (disorder)[facility] Repository (5 sources)Allergies ReconciledPropensity to adverse reactionsUnknownNorth [facility] Other (5 sources)patient allergy list reviewed by nurse or physiciaPropensity to adverse bnzoeoknw57-48-4344Xtixqem:[facility] Other (5 sources)Darvocet A500 *ANALGESICS - OPIOID*Propensity to adverse reactions 45-76-9655YvovmhhEhgjn [facility] Other (2 sources)Acetaminophen; Translations: [acetaminophen]Drug Hvebvhc57-34-3629 [facility] (5 sources)levoFLOXacin; Translations: [levofloxacin]Drug Ncjbaei89-13-1555OaywpUniversity Hospitals Elyria Medical Center (4 sources)oxyCODONE; Translations: [oxycodone]Drug Odfcogr59-29-5039KdwtsujhWooster Community Hospital (4 sources)Propoxyphene; Translations: [propoxyphene]Drug Hhxdcfk76-20-8020 [facility] (1 source)MeperidineDrug Emnuidc19-99-9283WyatkzlonKettering Health – [facility] Repository (2 sources)Darvocet A500 *ANALGESICS - OPAllergy to anjktnebe32-17-8821KiqzrUniversity Hospitals Elyria Medical CenterComment on above:Free Text Allergy: Darvocet A500 *ANALGESICS - OPIOID*; Onset Date: 10/27/2016 (5 sources)Acetaminophen / oxyCODONE; Translations: [OXYCODONE-ACETAMINOPHEN] Drug Idrihoi88-38-9030IA intoleranceCapital Region Medical Center (4 sources)MeperidineDrug Msgzljy42-43-3416CX intoleranceCapital Region Medical Center (1 source)PROPOXYPHENE N-ACETAMINOPHEN; Translations: [PROPOXYPHENE N-ACETAMINOPHEN]Propensity to adverse reactions to drug (disorder)12-15-2013 [facility] Repository Medications Current Medications MedicationDrug Class(es)DatesSig (Normalized)Sig (Original)aspirin 81 mg oral tablet (1 source)Platelet Aggregation Inhibitor, Nonsteroidal Anti-inflammatory Drug Start: 09-01-5131axsa 1 tablet by mouth once dailyAspirin 81 mg tablet Active 81 MG PO Daily May 24, 2025 12:00am Complies with drug yyzwtvj37 hr buPROPion hydrochloride 300 mg extended release oral tablet (20 sources)AminoketoneStart: 53-98-0646lwdz 1 tablet by mouth once daily in the morningBupropion Hcl (Wellbutrin Xl) 300 mg tablet extended release 24 hr Active 300 MG PO Every morning May 24, 2025 12:00am Complies with drug therapyStart: 08-23-2024 End: 80-84-6315kuvt 1 tablet by mouth twice dailyBupropion Hcl 100 mg tablet Discontinued 100 MG PO Twice daily August 23, 2024 12:00am May 24, 2025 4:19pmStart: 31-18-7529nwNXSKwzp HCl 100MG BuPROPion HCl( 100MG Oral 2 times daily ) Active -Hx Entry Oral 2 times daily for 0 *Pick strength-form from [employer] for eRX* Jun, Activeclopidogrel 75 mg oral tablet (4 sources)P2Y12 Platelet InhibitorStart: 28-69-6520mdnr 1 tablet by mouth once dailyClopidogrel (Plavix) 75 mg tablet Active 75 MG PO Daily May 24, 2025 12:00am Complies with drug therapyStart: 12-01-2023 End: 72-56-6133jikv 1 tablet by mouth once dailyclopidogrel (Plavix) 75 MG tablet Take 75 mg by mouth Daily 12/01/2023 11/30/2024 Zchzce91 hr dilTIAZem hydrochloride 240 mg extended release oral capsule (20 sources)Calcium Channel BlockerStart: 15-24-8065znzf 1 mg by mouth every twenty-four hoursDiltiazem Hcl (Cartia Xt) 240 mg capsule,extended release 24hr Active MG PO May 24, 2025 12:00amComplies with drug therapyStart: 08-23-2024 End: 23-68-7042ufkr 1 capsule by mouth once daily, then take 1 capsule by mouth every twenty-four hoursDiltiazem Hcl (Cardizem Cd) 240 mg capsule,extended release 24hr Discontinued 240 MG PO Daily August 23, 2024 12:00am August 23, 2024 11:19amStart: 08-23-2024 End: 09-10-0851icxr 2 tablets by mouth once dailyDiltiazem Hcl 120 mg tablet Discontinued 120 MG PO Daily August 23, 2024 11:19am May 2454:19pm FreeTextSi tablets Orally daily; Note: Source Status: Takingtotal of 240 mg; Provider: Robel Stewart ( )Start: 08-23-2024 End: 73-33-2102svqz 2 tablets by mouth once dailyDiltiazem Hcl Discontinued 2 TAB PO Daily August 23, 2024 12:00am August 23, 2024 11:20am FreeTextSi tablets Orally daily; Note: Source Status: Takingtotal of 240 mg; Provider: Robel Stewart ( )Start: 12-01-2023 End: 03-98-3052pkpc 1 capsule by mouth in the morning, then take 1 capsule by mouth every twenty-four hoursdilTIAZem CD (Cardizem CD) 120 MG 24 hr capsule Take 120 mg by mouth in the morning. 12/01/2023 ActiveStart: 53-73-6717pddt 240 mg by mouth once dailyCardizem CD 240MG Cardizem CD( 240MG Oral daily ) Active - Hx Entry Oral daily for 0 *Pick strength-form from [employer] for eRX* Jun, Activetake 2 tablets by mouth every twenty-four hoursCardizem 120 MG 2 tablets Orally daily total of 240 mg ActiveDULoxetine 30 mg delayed release oral capsule (20 sources)Serotonin and Norepinephrine Reuptake InhibitorStart: 08-23-2024 End: 58-82-3210qwaf 1 capsule by mouth once dailyDuloxetine (Cymbalta) 30 mg capsule,delayed release(DR/EC) Active 30 MG PO Daily August 232:00am Complies with drug therapyhydroCHLOROthiazide 25 mg oral tablet (5 sources)Thiazide DiureticStart: 12-01-2023 End: 47-08-2173caow 1 tablet by mouth once dailyHydrochlorothiazide 25 mg tablet Active 25 MG PO Daily May 24, 2025 12:00am Complies with drug therapy metoprolol tartrate 25 mg oral tablet (5 sources)beta-Adrenergic BlockerStart: 12-01-2023 End: 18-71-5326xizj 1 tablet by mouth once dailyMetoprolol Tartrate 25 mg tablet Active 25 MG PO Daily May 24, 2025 12:00am Complies with drug therapy nitroglycerin 0.4 mg sublingual tablet (5 sources)Nitrate VasodilatorStart: 18-71-5439uoed 1 tablet under the tongue onceNitroglycerin 0.4 mg tablet, sublingual Active 0.4 MG SUBLINGUAL Once May 24, 2025 12:00am Complies with drug therapynitroglycerin (Nitrostat) 0.[address] 0.4 mg under the tongue every 5 (five) minutes if needed for chest pain Activerosuvastatin calcium 40 mg oral tablet (5 sources)HMG-CoA Reductase InhibitorStart: 12-01-2023 End: 16-51-8601dryb 1 tablet by mouth once dailyRosuvastatin 40 mg tablet Active 40 MG PO Daily May 24, 2025 12:00am Complies with drug therapy Completed/Discontinued Medications MedicationDrug Class(es)DatesSig (Normalized)Sig (Original)citalopram 20 mg oral tablet (7 sources)Serotonin Reuptake InhibitorStart: 08-23-2024 End: 64-65-6277Qpuqtqmguk 20 mg tablet Discontinued MG PO August 23, 2024 12:00am May 24, 2025 4:19pm FreeTextSig: Citalopram Hydrobromide( 20MG Oral 2 times daily ) Active -Hx Entry Oral 2 times daily; Note:Source Status: Taking*Pick strength-form from [employer] for eRX*; Provider: Robel Stewart ( )Start: 00-34-0360Oqdswhhxja Hydrobromide 20MG Citalopram Hydrobromide( 20MG Oral 2 times daily ) Active -Hx Entry Oral 2 times daily for 0 *Pick strength-form from [employer] for eRX* Jun, Rmamyo40 hr isosorbide mononitrate 60 mg extended release oral tablet (19 sources)Nitrate VasodilatorStart: 08-23-2024 End: 49-57-2165lwoc 1 tablet by mouth once daily in the morningIsosorbide Mononitrate 60 mg tablet extended release 24 hr Discontinued 1 TAB PO Daily August 23, 2024 12:00am August 23, 2024 11:20am FreeTextSi tablet in the morning Orally Once a day; Note: Source Status: Uyzdtl339 mg; Provider: Robel Stewart ( )Start: 12-01-2023 End: 42-33-9890vsug 1 tablet by mouth in the morning, then take 1 tablet by mouth every twenty-four hoursisosorbide mononitrate ER (Imdur) 120 MG 24 hr tablet Take 120 mg by mouth in the morning. 12/01/2023 ActiveStart: 06-26-2022 Imdur 120MG Imdur( 120MG Oral ) Active -Hx Entry Oral for 0 *Reorder from [facility] for eRx and Interaction Alerts* Jun, Activetake 1 tablet by mouth once daily in the morningImdur 60 MG 1 tablet in the morning Orally Once a day 120 mg Active Problems Active Problems Problem ClassificationProblemDateDocumented DateEpisodic/ChronicAnxiety disorders (6 sources)Generalized anxiety disorder; Translations: [Generalized anxiety disorder]ChronicConduction disorders (5 sources)Pre-excitation syndrome; 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]Onset: 55-27-2895NfcnnwxOdonfidke of lipid metabolism (9 sources)Hyperlipidemia, unspecified; Translations: [Hyperlipidemia]Onset: 44-15-4329VjleirnQvtnm of unknown origin (5 sources)Fever, unspecified; Translations: [Fever]EpisodicHeadache; including migraine (6 sources)Tension-type headache; Translations: [Tension-type headache, unspecified, not intractable]Onset: 675790-95-4561OghvpdcVeuazwero disorders (10 sources)Excessive and frequent menstruation with regular cycle; Translations: [Intermenstrual bleeding - irregular] Resolved: 88-73-1285QafksciHujfcssxvavia mental health disorders (6 sources)Primary insomnia; Translations: [Primary insomnia]Onset: 02-28-2024 34-16-8570NfojxalVbbc disorders (6 sources)Moderate recurrent major depression; Translations: [...] (4 sources)Cerebrovascular disease; Translations: [Cerebrovascular disease, unspecified]Onset: 245326-90-6526YapesqkMlabr connective tissue disease (1 source)Pain in right hand; Translations: [Pain in right hand]EpisodicOther connective tissue disease (4 sources)Pain in right hand; Translations: [Pain in right hand]EpisodicOther eye disorders (5 sources)Dilated pupil; 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]ChronicOther eye disorders (6 sources)Anisocoria; 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]Onset: 825242-79-1612 ChronicOther non-traumatic joint disorders (1 source)Pain in left hip; Translations: [Pain in left hip]EpisodicOther non- traumatic joint disorders (4 sources)Arthralgia of the pelvic region and thigh; Translations: [Pain in left hip]EpisodicOther non-traumatic joint disorders (2 sources)Hip pain; Translations: [Pain in right hip]56-69-6675DqwraqviVkmnp non-traumatic joint disorders (1 source)Pain in right hip; Translations: [Pain in joint, pelvic region and thigh]07-60-4616RnkmhqflJqyzx nutritional; endocrine; and metabolic disorders (1 source)Body mass index (BMI) 36.0-36.9, adult; Translations: [Body mass index (BMI) 36.0-36.9, adult]ChronicOther nutritional; endocrine; and metabolic disorders (5 sources)Obese class I; Translations: [Body mass index 32.0-32.9, adult]Onset: 30-09-8961HvnxhbdShkgg nutritional; endocrine; and metabolic disorders (4 sources)Obese class II; Translations: [Body mass index (BMI) 36.0-36.9, adult]ChronicOther screening for suspected conditions (not mental disorders or infectious disease) (10 sources)Abnormal findings on diagnostic imaging of other specified body structures; Translations: [MRI scanabnormal]Onset: 40-58-7423DymjtuwEqvgq screening for suspected conditions (not mental disorders or infectious disease) (20 sources)Encounter for screening mammogram for malignant neoplasm of breast; Translations: [Urine test negative]Onset: 85-16-8939HsmcejpdOukwg skin disorders (5 sources)Acne vulgaris; Translations: [Acne [...] pain; Translations: [Pelvic and perineal pain] Resolved: 70-14-0446UhlooarmIptrcwuf reactions (5 sources)Unspecified contact dermatitis due to other agents; Translations: [Contact dermatitis]Onset: 73-75-3721SwoefrlaPlaxiayzxg associated with dizziness or vertigo (6 sources)Vertigo; Translations: [Dizziness and giddiness]Onset: 02-28-2024 31-82-7281TyhsxmyiAuyrjdgc; including migraine (4 sources)Tension-type headache; Translations: [Tension-type headache, unspecified, intractable]Onset: 010086-74-3155AudreqwqRuietve and fatigue (1 source)Other fatigue; Translations: [OTHER FATIGUE]Onset: 96-42-0496Azstqniv Mycoses (5 sources)Candidiasis, unspecified; Translations: [Candidiasis]Onset: 79-32-0213HfkyobrcZkaagiowvsw chest pain (18 sources)Non-cardiac chest pain; Translations: [Other chest pain]Onset: 87-76-3924WeycpiwfJzbka circulatory disease (4 sources)Other specified symptoms and signs involving the circulatory and respiratory systems; Translations:[OTH SPEC SX SIGNS INVLV CIRC RS]Onset: 60-21-3546KstbyzjbMlvjm complications of (1 source)Supervision of high risk , unspecified, unspecified trimester; Translations: [Supervision of high risk , unspecified, unspecified trimester]Onset: 61-39-0756GsvnymdpBqhzi complications of (4 sources)High risk ; Translations: [Supervision of high risk , unspecified, unspecified trimester]Onset: 37-74-2952EzcrrkwzSgjvn eye disorders (4 sources)Fundoscopy abnormal; Translations: [Unspecified disorder of eye and adnexa]Onset: 614507-94-4166DwwhaggvPjdmg liver diseases (4 sources)Elevated levels of transaminase & lactic acid dehydrogenase; Translations: [Nonspecific elevation of levels of transaminase or lactic acid dehydrogenase (LDH)]Onset: 50-77-9030IlalqxtsCfian lower respiratory disease (2 sources)Shortness of breath; Translations: [Shortness of breath]Onset: 43-30-0547SpwidoguQzpmp nervous system disorders (6 sources)Tremor; Translations: [Tremor, unspecified]Onset: 02-28-2024 76-30-6669UlrliriwCzfnl non-traumatic joint disorders (5 sources)Shoulder joint pain; Translations: [Pain in right shoulder]Onset: 16-17-5393EugodlriRxwcd and delivery including normal (1 source)Encounter for routine follow-up; Translations: [Encounter for routine follow-up]Onset: 55-06-2324CaeyxybbImhbfqtkq; thrombophlebitis and thromboembolism (5 sources)Embolism from thrombosis of vein of distal lower extremity; Translations: [Acute venous embolism and thrombosis of unspecified deep vessels of lower extremity]Onset: 35-44-4003OirrqqmaElsyshimroj; intervertebral disc disorders; other back problems (5 sources)Cervical disc disorder with radiculopathy; Translations: [Cervical disc disorder with radiculopathy, cervicothoracic region]Onset: 06-20-2018 EpisodicThyroid disorders (5 sources)Disorder of thyroid, unspecified; Translations: [Disorder of thyroid gland]Onset: 71-12-0260QiehjabfToyagpklkbyr (5 sources)Surveillance of intrauterine device contraception done; Translations: [Surveillance of previously prescribed intrauterine contraceptive device]Onset: 47-40-3531Nmtpjbfcrbiz (5 sources)Encounter for insertion or removal of intrauterine contraceptive device; Translations: [Encounter for insertion or removal of intrauterine contraceptive device]Onset: 09-05-2009 Results Test NameValueInterpretationReference MvhsoMyikbwkz13rq 52-70-976186Vuytwlq had labs drawn 08/22 for routine wellness. Her K was very low so she was advised to go to the ED. She said the ED doc gave her 4 days worth of potassium chloride. It was checked again today and results are scanned into multimedia journalist for your review. Did you want to give her more potassium? It's still low. Please advise. Thanks.[facility]36on Regarding stress test result from 05/28/2025: Vidhi Anderson MD to Me (Selected Message) EE 06/05/25 7:55 AM Please reassure her stress test is normal Thanks Patient made aware.[facility] HospitalOrders Onlyon 63-79-7397Zkgzlc [id number] Elvia Fox Alexy 1975 F Date Provider Department Center 06/04/2025 [id number], HISTORICAL BEATA [facility] Family History Problem Relation Age of Onset Supraventricular tachycardia Mother Heart disease Father Supraventricular tachycardia Sister Heart disease Paternal Grandmother Heart disease Paternal Grandfather Family Status - Relation Status Age at Mother Father Sister Paternal Grandmother Paternal GrandfatherNAdams County Regional Medical CenterOffice Visiton 88-14-6822Prqpqg-up [id number] Leslie Foxecca Alexy 1975 F Date Provider Department Center 05/03/2025 271-VIDHI ANDERSON Family History Problem Relation Age of Onset Supraventricular tachycardia Mother Heart disease Father Supraventricular tachycardia Sister Heart disease Paternal Grandmother Heart disease Paternal Grandfather Family Status - Relation Status Age at Mother Father Sister Paternal Grandmother Paternal Grandfather Level of Service:98863 [place] OFFICE/OUTPATIENT ESTABLISHED MOD [facility]W CONTRon 33-04-4494[address] [address] Magnetic Resonance Report Signed Patient: ELVIA FOX MR#: [id number] : 1975 Acct:[id number] Age/Sex: 48 / F ADM Date: 03/16/24 Loc: MRI Attending Dr: Harlan Niño NP Ordering Physician: Harlan Niño NP Date of Service: 03/16/24 Procedure(s): MR head/brain wo/w con Accession Number(s): [id number] cc: Pat Huston M.D.; Harlan Niño NP [place] [address] Patient Name: ELVIA FOX MRN: [facility]:[id number] date: 1975 Sex: F Assigned Patient Location: MRI Current Patient Location: MRI Accession/Order Number: [id number] Exam Date: 03/16/2024 16:00 Report Date: 03/16/2024 [...] M.D. Signed By: 03/16/241705 DD/ 03 TD/TT: Mold Hoister:TBHRadiology, Radiologist, - 03/16/2024 [place] [address] Magnetic Resonance Report Signed Patient: ELVIA FOX MR#: [id number] : 1975 Acct:[id number] Age/Sex: 48 / F ADM Date: 03/16/24 Loc: MRI Attending Dr: Harlan Niño NP Ordering Physician: Harlan Niño NP Date of Service: 03/16/24 Procedure(s): MR head/brain wo/w con Accession Number(s): [id number] cc: Pat Huston M.D.; Harlan Niño NP [address] [place] [address] Patient Name: ELVIA FOX MRN: [facility]:[id number] date: 1975 Sex: F Assigned Patient Location: MRI Current Patient Location: MRI Accession/Order Number: [id number] Exam Date: 03/16/2024 16:00 Report Date: 03/16/2024 [...] M.D. Signed By: 03/16/241705 DD/ 03 TD/TT: Mold Hoister: [facility] CenterRadiology Study observation (narrative)[facility] CenterI [facility]/BRAIN WO/W CONTROrdered By: Radiologist Radiology on 17-00-0424TCIT GTRAN Work Phone: MR breast BI wo/w con CADon 78-40-3125EQ breast BI wo/w con [facility] [place] [address] MRI Report Signed Patient: Elvia Fox MR#: [id number] : 1975 Acct:[id number] Age/Sex: 48 / F ADM Date: 09/07/23 Loc: Room: Type: [facility] Attending Dr: Pat Huston MD Copies to: [...] All imaged data was reviewed using the NextGxDX system. The postcontrast images were subtracted and [...] Waite Jr., D.OLinda09/07/2023 11:47 AM Dictation Location: [place] [address] Transcribed By: [facility] 09/07/23 1147 Dictated By: Bunny Waite Jr, DO 09/07/23 1138 Signed By: 09/07/23 1147[facility] HospitalMRI BRAIN WO W CONon 91-01-9094BXH BRAIN WO W CONEXAMINATION: MRI BRAIN WO [...] Electronically authenticated by: EDILSON JOHN Date: 2023-02-16 10:16[facility] Medical CenterLIPID PROFILEon 71-97-9108KTVM-HDL RATIO NORMSEE [facility] Medical CenterComment on above:Result Comment: 3.3 - 4.4 LOW RISK 4.4 - 7.1 AVERAGE RISK 7.1 - 11.0 MODERATE RISK >11.0 HIGH RISKPerformed By: #### CMP, TSH, LIPID #### [facility] [address] [address] [address] David ZapataCholesterol [Mass/Vol]120 mg/dLNormal<=200The [facility] Comment on above:Performed By: #### CMP, TSH, LIPID #### [facility] [address] [place] [address] Dr. David ZapataCholesterol in HDL [Mass/Vol]54 mg/tCTyviza38-28GxtBethesda North HospitalComment on above:Performed By: #### CMP, TSH, LIPID #### [facility] [address] [place] [address] Dr. Dvaid ZapataCholesterol in LDL [Mass/Vol]45.6 mg/dLWright-Patterson Medical CenterComment on above:Performed By: #### CMP, TSH, LIPID #### [facility] [address] [place] [address] Dr. David Suarezestermaciej.total/Cholesterol in HDL [Mass ratio]2.2 {ratio} NormalBethesda North HospitalComment on above:Performed By: #### CMP, TSH, LIPID #### [facility] [address] [place] [address] Dr. David ZpaataHDL NORMAL> or = 60 mg/dl - LOW CARDIOVASCULAR RISK <40 mg/dl - HIGH CARDIOVASCULAR RISKWright-Patterson Medical CenterComment on above:Performed By: #### CMP, TSH, LIPID #### [facility] [address] [place] [address] Dr. David ZapataLDL CALC NORMALSEE [facility] Medical CenterComment on above:Result Comment: <100 mg/dl OPTIMAL 100 - 129 mg/dl NEAR OR ABOVE OPTIMAL 130 - 159 mg/dl BORDERLINE HIGH 160 - 189 mg/dl HIGH >190 mg/dl VERY HIGH Performed By: #### CMP, TSH, LIPID #### [facility] [address] [place] [address] Dr. David ZapataTriglyceride [Mass/Vol]102 mg/dLNormal<=150The [facility] Comment on above:Performed By: #### CMP, TSH, LIPID #### [facility] [address] [place] [address] Dr. David ZapataVLDL CALC20.4 mg/dLNormalThe [facility] TrumbullComment on above: Performed By: #### CMP, TSH, LIPID #### [facility] [address] [place] [address] Dr. David Cheatham PROFILEon 97-52-5812Pmgfjtd [Mass/Vol]3.4 g/dLNormal3.4-5.0 The [facility] TrumbullComment on above:Performed By: #### CMP, TSH, LIPID #### [facility] [address] [place] [address] Dr. David ZapataAlbumin/Globulin [Mass ratio]1.0 {ratio}NormalThe [facility] TrumbullComment on above:Performed By: #### CMP, TSH, LIPID #### [facility] [address] [place] [address] Dr. David Crockett [Catalytic activity/Vol]51 U/ATvabbn37-425Iyi [facility] TrumbullComment on above:Performed By: #### CMP, TSH, LIPID #### [facility] [address] [place] [address] Dr. David Szymanski [Catalytic activity/Vol]32 U/UQbgati84-52Wiz [facility] on above:Performed By: #### CMP, TSH, LIPID #### [facility] [address] [place] [address] Dr. David Gamino [Catalytic activity/Vol]18 U/CWljpko93-90Nbd [facility] TrumbullComment on above:Performed By: #### CMP, TSH, LIPID #### [facility] [facility] [address] [place], [place] [id number] Dr. David Xie, CONJUGATED0.1 mg/dLNormal0.0-0.2[facility] Comment on above:Performed By: #### CMP, TSH, LIPID #### [facility] [address] [place] [address] Dr. David Mcknightirubin [Mass/Vol]0.4 mg/dLNormal0.2-1.0[facility] Comment on above:Performed By: #### CMP, TSH, LIPID #### [facility] [address] [place] [address] Dr. David ZapataGlobulin (S) [Mass/Vol]3.5 g/dLNormalThe [facility]Comment on above:Performed By: #### CMP, TSH, LIPID #### [facility] [address] [place] [address] Dr. David ZapataProtein [Mass/Vol]6.9 g/dLNormal6.4-8.2[facility] Comment on above:Performed By: #### CMP, TSH, LIPID #### [facility] [address] [place] [address] Dr. David Kellogg AUTO DIFFon [id number] #0.0 103/ulNormal0.0-0.1[facility] HospitalComment on above:Performed By: #### CBC #### [facility] [address] [place] [address] Dr. David ZapataBasophils/100 WBC (Bld)0.4 %Normal0.2-2.0[facility] Comment on above:Performed By: #### CBC #### [facility] [address] [place] [address] Dr. David Henry #0.3 103/ulNormal0.0-0.7The [facility] above: Performed By: #### CBC #### [facility] [address] [place] [address] Dr. David Chavisosinophils/100 WBC (Bld)3.4 %Normal0.9-7.0The [facility] Comment on above:Performed By: #### CBC #### [facility] [address] [place] [address] Dr. David Chavisrythrocyte distribution width (RBC) [Ratio]12.0 %Pyoiuj87.0-15.0 [facility] on above:Performed By: #### CBC #### [facility] [address] [place] [address] Dr. David ZapataHematocrit (Bld) [Volume fraction]44.2 %Tezgrb83.0-48.0The [facility] on above:Performed By: #### CBC #### [facility] [address] [place] [address] Dr. David ZapataHemoglobin (Bld) [Mass/Vol]14.0 g/dNBncpxf24.0-16.0[facility] HospitalComment on above:Performed By: #### CBC #### [facility] [address] [place] [address] Dr. David Rubio #0.04 10e3/ulCritically high0.00-0.03The [facility] Comment on above:Performed By: #### CBC #### [facility] [address] [place] [address] Dr. David Rubio %0.5 %Normal0.0-0.5The [facility] above: Performed By: #### CBC #### [facility] [address] [place] [address] Dr. David Barnhart #2.3 103/ulNormal1.2-3.8The [facility] on above:Performed By: #### CBC #### [facility] [address] [place] [address] Dr. David Guevarahocytes/100 WBC (Bld)28.7 %Qlqdpo45.5-60.0The [facility] on above:Performed By: #### CBC #### [facility] [address] [place] [address] Dr. David HanksUAL DIFF REQNONormalThe [facility] on above: Performed By: #### CBC #### [facility] [address] [place] [address] Dr. David León (RBC) [Entitic mass]29.2 fuBedcgn23.7-34.0The [facility] on above:Performed By: #### CBC #### [facility] [address] [place] [address] Dr. David León (RBC) [Mass/Vol]31.7 g/mXUbirwl18.9-35.2The [facility] HospitalComment on above:Performed By: #### CBC #### [facility] [address] [place] [address] Dr. David León (RBC) [Entitic vol]92.1 zQRtpaxr12.0-99.0The [facility] on above:Performed By: #### CBC #### [facility] [address] [place] [address] Dr. David Arellano #0.6 103/ulNormal0.3-0.8The [facility] on above:Performed By: #### CBC #### [facility] [address] [place] [address] Dr. David Sureshocytes/100 WBC (Bld)7.3 %Normal1.7-12.0The [facility] Comment on above:Performed By: #### CBC #### [facility] [address] [place] [address] Dr. David Noble #4.8 103/ulNormal1.4-6.5The [facility] on above:Performed By: #### CBC #### [facility] [address] [place] [address] Dr. David Cavazosutrophils/100 WBC (Bld)59.7 %Tonjjc30.0-75.0The [facility] on above:Performed By: #### CBC #### [facility] [address] [place] [address] Dr. David Maldonadolet mean volume (Bld) [Entitic vol]9.4 fLCritically low 9.5-13.5The [facility] on above:Performed By: #### CBC #### [facility] [address] [place] [address] Dr. David ArayaT308 103/xsFcvrne131-231Rrl [facility] on above: Performed By: #### CBC #### [facility] [address] [place] [address] Dr. David ZapataRBC4.80 106/ulNormal4.20-5.40The [facility] on above:Performed By: #### CBC #### [facility] [address] [place] [address] Dr. David ZapataWBC8.0 103/ulNormal4.0-11.0The [facility] on above: Performed By: #### CBC #### [facility] [address] [place] [address] Dr. David ArroyoID PROFILEon 20-73-5484TIPW-HDL RATIO NORMSEE [facility] CenterComcaro [facility] on above:Result Comment: 3.3 - 4.4 LOW RISK 4.4 - 7.1 AVERAGE RISK 7.1 - 11.0 MODERATE RISK >11.0 HIGH RISKPerformed By: #### CMP, TSH, LIPID #### [facility] [address] [place] [address] Dr. David ZapataCholesterol [Mass/Vol]203 mg/dLCritically high<=200The [facility] on above:Performed By: #### CMP, TSH, LIPID #### [facility] [address] [place] [address] Dr. David ZapataCholesterol in HDL [Mass/Vol]57 mg/aPVawufe66-72Ird [facility] on above:Performed By: #### CMP, TSH, LIPID #### [facility] [address] [place] [address] Dr. David Suarezesterol in LDL [Mass/Vol]120.4 mg/dLNormalThe [facility] HospitalComment on above:Performed By: #### CMP, TSH, LIPID #### [facility] [address] [address] [address] David ZapataCholesterol.total/Cholesterol in HDL [Mass ratio]3.6 {ratio} NormalThe [facility] on above:Performed By: #### CMP, TSH, LIPID #### [facility] [address] [address] [address] David Garcia NORMAL> or = 60 mg/dl - LOW CARDIOVASCULAR RISK <40 mg/dl - HIGH CARDIOVASCULAR RISKWright-Patterson Medical CenterComment on above:Performed By: #### CMP, TSH, LIPID #### [facility] [address] [address] [address] David ZapataLDL CALC NORMALSEE BELOWWright-Patterson Medical CenterComment on above:Result Comment: <100 mg/dl OPTIMAL 100 - 129 mg/dl NEAR OR ABOVE OPTIMAL 130 - 159 mg/dl BORDERLINE HIGH 160 - 189 mg/dl HIGH >190 mg/dl VERY HIGH Performed By: #### CMP, TSH, LIPID #### [facility] [address] [address] [address] David ZapataTriglyceride [Mass/Vol]128 mg/dLNormal<=150The [facility] Comment on above:Performed By: #### CMP, TSH, LIPID #### [facility] [address] [address] [address] David ZapataVLDL CALC25.6 mg/dLNoOhioHealth Dublin Methodist HospitalComment on above: Performed By: #### CMP, TSH, LIPID #### [facility] [address] [address] [address] David ZapataPROKareem 14(COMP METB)on [id number] [Mass/Vol]3.5 g/dLNormal 3.4-5.0The [facility] on above:Performed By: #### CMP, TSH, LIPID #### [facility] [address] [address] [address] aDvid ZapataAlbumin/Globulin [Mass ratio]1.0 {ratio}NormalThe Lloyd HospitalComment on above:Performed By: #### CMP, TSH, LIPID #### [facility] [address] [place] [address] Dr. David Crockett [Catalytic activity/Vol]68 U/WMvpsok28-201Efh [facility] on above:Performed By: #### CMP, TSH, LIPID #### [facility] [address] [place] [address] Dr. David Szymanski [Catalytic activity/Vol]28 U/PRsziom82-19Tzx [facility] on above:Performed By: #### CMP, TSH, LIPID #### [facility] [address] [place] [address] Dr. David Nguyen gap [Moles/Vol]11.3 mmol/LNormalThe [facility] Comment on above:Performed By: #### CMP, TSH, LIPID #### [facility] [address] [place] [address] Dr. David Gamino [Catalytic activity/Vol]18 U/ZSdfenq12-39Efv [facility] on above:Performed By: #### CMP, TSH, LIPID #### [facility] [address] [place] [address] Dr. David ZapataBilirubin [Mass/Vol]0.4 mg/dLNormal0.2-1.0[facility] Comment on above:Performed By: #### CMP, TSH, LIPID #### [facility] [address] [place] [address] Dr. David ZapataCalcium [Mass/Vol]8.8 mg/dLNormal8.5-10.1[facility] Comment on above:Performed By: #### CMP, TSH, LIPID #### [facility] [address] [place] [address] Dr. David Vuongide [Moles/Vol]103 mmol/AZhzzys30-003Whj [facility] Comment on above:Performed By: #### CMP, TSH, LIPID #### [facility] [address] [place] [address] Dr. David ZapataCO2 [Moles/Vol]28.4 mmol/AEinogr18.0-32.0[facility] Comment on above:Performed By: #### CMP, TSH, LIPID #### [facility] [address] [address] [address] David ZapataCreatinine [Mass/Vol]0.96 mg/dLNormal0.55-1.02The [facility] on above:Performed By: #### CMP, TSH, LIPID #### [facility] [address] [place] [address] Dr. David ChavisGFR-AF CUBAN>60Normal>=60The [facility] on above:Performed By: #### CMP, TSH, LIPID #### [facility] [address] [place] [address] Dr. David Mccallum-NON AF CUBAN>60Normal>=60The [facility] on above:Performed By: #### CMP, TSH, LIPID #### [facility] [address] [place] [address] Dr. David ZapataGlobulin (S) [Mass/Vol]3.5 g/dLNormalThe [facility] on above:Performed By: #### CMP, TSH, LIPID #### [facility] [address] [place] [address] Dr. David ZapataGlucose [Mass/Vol]94 mg/aLQpmghy75-913JeyBethesda [facility] Hospital Comment on above:Performed By: #### CMP, TSH, LIPID #### [facility] [address] [place] [address] Dr. David ZapataPotassium [Moles/Vol]3.7 mmol/LNormal3.5-5.1The [facility] Comment on above:Performed By: #### CMP, TSH, LIPID #### [facility] [address] [place] [address] Dr. David ZapataProtein [Mass/Vol]7.0 g/dLNormal6.4-8.2The [facility] Comment on above:Performed By: #### CMP, TSH, LIPID #### [facility] [address] [address] [address] David ZapataSodium [Moles/Vol]139 mmol/LYqafhg429-945Lbd [facility] on above:Performed By: #### CMP, TSH, LIPID #### [facility] [address] [address] [address] David ZapataUrea nitrogen [Mass/Vol]8.0 mg/dLNormal7.0-18.0The [facility] on above:Performed By: #### CMP, TSH, LIPID #### [facility] [address] [address] [address] David ZapataUrea nitrogen/Creatinine [Mass ratio]8.3 mg/mgNormalThe [facility]Comment on above:Performed By: #### CMP, TSH, LIPID #### [facility] [address] [place] [address] Dr. David ZapataTSHon 31-66-3936JKK0.557 uIU/mLNormal0.358-3.740The [facility] on above:Performed By: #### CMP, TSH, LIPID #### [facility] [address] [address] [address] David ZapataVITAMIN B12on 59-70-3747Vsfbrtnsd (Vitamin B12) [Mass/Vol]247.0 pg/yPXgllhp506.0-986.0The [facility] on above:Performed By: #### VITB12 #### [facility] [address] [place] [address] Dr. David ZapataNM STRESS/REST MULTIon 73-82-6468CP STRESS/REST MULTIPatient: ELVIA FOX Exam Date: 11/04/2022 : 1975 Gender:F Ordering : DR VIDHI ANDERSON M.D. Admission #: [id number] Family : Order #: [id number] CLICK HERE TO VIEW EXAM RADIOLOGY REPORT [...] by: Edilson John M.D. on 11/05/2022 at 11:01[facility] MAMM SCREEN 3D AMANUEL CADon 90-95-8269ND MAMM SCREEN 3D AMANUEL CADPatient: ELVIA FOX Exam Date: 07/10/2022 : 1975 Gender:F Ordering : DR PAT HUSTON M.D. Admission #: [id number] Family : Order #: [id number] CLICK HERE TO VIEW EXAM RADIOLOGY REPORT [...] Treatments None Family Cancers None LOCATION: [facility] BREAST COMPOSITION: Heterogeneously dense,which may obscure small [...] by: Nilesh Deutsch MD on 07/10/2022 at 08:04[facility]ThWilson [facility] AUTO DIFFon [id number] #0.0 103/ulNormal0.0-0.1[facility] HospitalComment on above:Performed By: #### CBC #### [facility] [address] [place] [address] Dr. David ZapataBasophils/100 WBC (Bld)0.5 %Normal0.2-2.0[facility] Comment on above:Performed By: #### CBC #### [facility] [address] [place] [address] Dr. David Henry #0.3 103/ulNormal0.0-0.7The [facility] on above: Performed By: #### CBC #### [facility] [address] [place] [address] Dr. David Chavisosinophils/100 WBC (Bld)3.4 %Normal0.9-7.0[facility] Comment on above:Performed By: #### CBC #### [facility] [address] [place] [address] Dr. David Chavisrythrocyte distribution width (RBC) [Ratio]12.1 %Iqzxiw82.0-15.0 [facility] HospitalComment on above:Performed By: #### CBC #### [facility] [address] [place] [address] Dr. David ZapataHematocrit (Bld) [Volume fraction]40.6 %Qbvcxo88.0-48.0[facility] HospitalComment on above:Performed By: #### CBC #### [facility] [address] [place] [address] Dr. David ZapataHemoglobin (Bld) [Mass/Vol]13.5 g/eZXuawbs28.0-16.0The [facility] on above:Performed By: #### CBC #### [facility] [address] [place] [address] Dr. David Rubio #0.03 10e3/ulNormal0.00-0.03The [facility] on above:Performed By: #### CBC #### [facility] [address] [place] [address] Dr. David Rubio %0.4 %Normal0.0-0.5The [facility]Comcar[facility] on above: Performed By: #### CBC #### [facility] [address] [place] [address] Dr. David Barnhart #2.1 103/ulNormal1.2-3.8The [facility] on above:Performed By: #### CBC #### [facility] [address] [place] [address] Dr. David Guevarahocytes/100 WBC (Bld)28.6 %Fmhbyo11.5-60.0The [facility] on above:Performed By: #### CBC #### [facility] [address] [place] [address] Dr. David HanksUAL DIFF REQNONormalThe [facility] on above: Performed By: #### CBC #### [facility] [address] [place] [address] Dr. David León (RBC) [Entitic mass]29.2 itPeltsh66.7-34.0The [facility] on above:Performed By: #### CBC #### [facility] [address] [place] [address] Dr. David León (RBC) [Mass/Vol]33.3 g/pMFsjvph54.9-35.2The [facility] on above:Performed By: #### CBC #### [facility] [address] [address] [address] David LeónV (RBC) [Entitic vol]87.9 sYNldwtz60.0-99.0The [facility] Hospitalment on above:Performed By: #### CBC #### [facility] [address] [place] [address] Dr. David Arellano #0.6 103/ulNormal0.3-0.8The [facility] on above:Performed By: #### CBC #### [facility] [address] [place] [address] Dr. David Sureshocytes/100 WBC (Bld)7.9 %Normal1.7-12.0The [facility] Comment on above:Performed By: #### CBC #### [facility] [address] [place] [address] Dr. David Noble #4.3 103/ulNormal1.4-6.5The [facility] Hospitalment on above:Performed By: #### CBC #### [facility] [address] [place] [address] Dr. David Cavazosutrophils/100 WBC (Bld)59.2 %Foonqu94.0-75.0The [facility] on above:Performed By: #### CBC #### [facility] [address] [place] [address] Dr. David Maldonadolet mean volume (Bld) [Entitic vol]9.2 fLCritically low 9.5-13.5The [facility] Hospitalment on above:Performed By: #### CBC #### [facility] [address] [place] [address] Dr. David ZapataPLT280 103/upSeiovl094-157Dcc [facility] on above: Performed By: #### CBC #### [facility] [address] [place] [address] Dr. David ZapataRBC4.62 106/ulNormal4.20-5.40The [facility] Hospitalment on above:Performed By: #### CBC #### [facility] [address] [address] [address] David ZapataWBC7.3 103/ulNormal4.0-11.0The [facility] on above: Performed By: #### CBC #### [facility] [address] [address] [address] David ZapataGLYCOHEMOGLOBIN A1Con 31-90-0217CAO RECOMMENDATIONSEE BELOWAshtabula County Medical CenterComcaro center on above:Result Comment: ADA RECOMMENDED LIMIT 4.0 - 6.0 ADA THERAPEUTIC TARGET < 7.0 ACTION SUGGESTED > 7.0Performed By: #### CMP, TSH, LIPID #### [facility] [address] [place] [address] Dr. David ZapataGlucose [Mass/Vol]103 mg/dLNoMartin Memorial Hospital on above:Performed By: #### CMP, TSH, LIPID #### [facility] [address] [place] [address] Dr. David ZapataHbA1c (Bld) [Mass fraction]5.2 %Normal4.5-6.2The [facility] on above:Performed By: #### CMP, TSH, LIPID #### [facility] [address] [place] [address] Dr. David ZapataLIPID PROFILEon [id number]-HDL RATIO NORMSEE [facility] on above:Result Comment: 3.3 - 4.4 LOW RISK 4.4 - 7.1 AVERAGE RISK 7.1 - 11.0 MODERATE RISK >11.0 HIGH RISKPerformed By: #### CMP, TSH, LIPID #### [facility] [address] [address] [address] David ZapataCholesterol [Mass/Vol]217 mg/dLCritically high<=200The [facility] on above:Performed By: #### CMP, TSH, LIPID #### [facility] [address] [place] [address] Dr. David ZapataCholesterol in HDL [Mass/Vol]50 mg/lOUjuswm68-19Pcq [facility]Comment on above:Performed By: #### CMP, TSH, LIPID #### [facility] [address] [address] [address] David Suarezesterol in LDL [Mass/Vol]137.6 mg/dLWright-Patterson Medical CenterComcaro center on above:Performed By: #### CMP, TSH, LIPID #### [facility] [address] [address] [address] David Mayers.total/Cholesterol in HDL [Mass ratio]4.3 {ratio} NormalThe [facility]ullComment on above:Performed By: #### CMP, TSH, LIPID #### [facility] [address] [place] [address] Dr. David Garcia NORMAL> or = 60 mg/dl - LOW CARDIOVASCULAR RISK <40 mg/dl - HIGH CARDIOVASCULAR RISKWright-Patterson Medical CenterComment on above:Performed By: #### CMP, TSH, LIPID #### [facility] [address] [address] [address] David Bardales CALC NORMALSEE BELOWWright-Patterson Medical CenterComment on above:Result Comment: <100 mg/dl OPTIMAL 100 - 129 mg/dl NEAR OR ABOVE OPTIMAL 130 - 159 mg/dl BORDERLINE HIGH 160 - 189 mg/dl HIGH >190 mg/dl VERY HIGH Performed By: #### CMP, TSH, LIPID #### [facility] [address] [address] [address] David ZapataTriglyceride [Mass/Vol]147 mg/dLNormal<=150The [facility] Comment on above:Performed By: #### CMP, TSH, LIPID #### [facility] [address] [address] [address] David PantojaLDL CALC29.4 mg/dLNoOhioHealth Dublin Methodist HospitalComment on above: Performed By: #### CMP, TSH, LIPID #### [facility] [address] [place] [address] Dr. David ZapataPROF 14(COMP METB)on 39-70-1857Hargpsn [Mass/Vol]3.6 g/dLNormal 3.4-5.0The [facility]ullComment on above:Performed By: #### CMP, TSH, LIPID #### [facility] [address] [address] [address] David ZapataAlbumin/Globulin [Mass ratio]1.1 {ratio}NormalThe [facility]ullComment on above:Performed By: #### CMP, TSH, LIPID #### [facility] [address] [address] [address] David Crockett [Catalytic activity/Vol]62 U/BHxvghe83-058Cvu [facility]ullComment on above:Performed By: #### CMP, TSH, LIPID #### [facility] [address] [place] [address] Dr. David Szymanski [Catalytic activity/Vol]21 U/MZavohy19-09Mtd [facility]ullComment on above:Performed By: #### CMP, TSH, LIPID #### [facility] [address] [place] [address] Dr. David Nguyen gap [Moles/Vol]12.6 mmol/LNormalThe [facility] Comment on above:Performed By: #### CMP, TSH, LIPID #### [facility] [address] [place] [address] Dr. David ZapataAST [Catalytic activity/Vol]14 U/LCritically tcf34-87Vsa [facility]ullComment on above:Performed By: #### CMP, TSH, LIPID #### [facility] [address] [place] [address] Dr. David ZapataBilirubin [Mass/Vol]0.6 mg/dLNormal0.2-1.0The [facility] Comment on above:Performed By: #### CMP, TSH, LIPID #### [facility] [address] [place] [address] Dr. David ZapataCalcium [Mass/Vol]8.5 mg/dLNormal8.5-10.1[facility] Comment on above:Performed By: #### CMP, TSH, LIPID #### [facility] [address] [place], [place] [address] Dr. David ZapataChloride [Moles/Vol]103 mmol/KDngbcr10-766Qfz [facility] Comment on above:Performed By: #### CMP, TSH, LIPID #### [facility] [address] [place] [address] Dr. David ZapataCO2 [Moles/Vol]26.2 mmol/GDvpmwz04.0-32.0The [facility] Comment on above:Performed By: #### CMP, TSH, LIPID #### [facility] [address] [place] [address] Dr. David ZapataCreatinine [Mass/Vol]0.94 mg/dLNormal0.55-1.02[facility] HospitalComment on above:Performed By: #### CMP, TSH, LIPID #### [facility] [address] [place] [address] Dr. Hernandez ChangEGFR-AF CUBAN>60Normal>=60The [facility] TrumbullComment on above:Performed By: #### CMP, TSH, LIPID #### [facility] [address] [place] [address] Dr. David ChavisGFR-NON AF CUBAN>60Normal>=60The [facility] TrumbullComment on above:Performed By: #### CMP, TSH, LIPID #### [facility] [address] [place] [address] Dr. David ZapataGlobulin (S) [Mass/Vol]3.3 g/dLNormalThe [facility]ullComment on above:Performed By: #### CMP, TSH, LIPID #### [facility] [address] [place] [address] Dr. David ZapataGlucose [Mass/Vol]100 mg/gLDhexjj66-953Twf [facility] Comment on above:Performed By: #### CMP, TSH, LIPID #### [facility] [address] [place] [address] Dr. David ZapataPotassium [Moles/Vol]3.8 mmol/LNormal3.5-5.1The [facility] Comment on above:Performed By: #### CMP, TSH, LIPID #### [facility] [address] [address] [address] David ZapataProtein [Mass/Vol]6.9 g/dLNormal6.4-8.2The [facility] Comment on above:Performed By: #### CMP, TSH, LIPID #### [facility] [address] [address] [address] David ZapataSodium [Moles/Vol]138 mmol/ZPsblfx524-459Uuz [facility] Comment on above:Performed By: #### CMP, TSH, LIPID #### [facility] [address] [address] [address] David ZapataUrea nitrogen [Mass/Vol]7.0 mg/dLNormal7.0-18.0The [facility]umbullComment on above:Performed By: #### CMP, TSH, LIPID #### [facility] [address] [place] [address] Dr. David Khan nitrogen/Creatinine [Mass ratio]7.4 mg/mgNormalThe [facility] TrumbullComment on above:Performed By: #### CMP, TSH, LIPID #### [facility] [address] [place] [address] Dr. David Tobias 00-60-8129PDT4.434 uIU/mLNormal0.358-3.740The [facility]umbullComment on above:Performed By: #### CMP, TSH, LIPID #### [facility] [address] [place] [address] Dr. David ZapataMRI BRAIN WO W CONon 20-60-5126OWU BRAIN WO W CONEXAMINATION: MRI BRAIN WO [...] Electronically authenticated by: EDILSON JOHN Date: 2022-06-10 06:40The [facility] METABOLIC PANELon 68-21-4356Zeikjgk [Mass/Vol]8.6 mg/dL Normal8.6-10.3The [facility] HospitalComment on above:Order Comment: No: Do not add to previous drawPerformed By: #### 99664, 45506 #### [facility] [address] [place] [address], USAChloride [Moles/Vol]106 mmol/YZmoday85-267Zge [facility] HospitalComment on above:Order Comment: No: Do not add to previous drawPerformed By: #### 15680, 06845 #### [facility] [address] [place] [address], USACO2 [Moles/Vol]24 mmol/SXdnrse40-75Mow [facility] HospitalComment on above:Order Comment: No: Do not add to previous draw Performed By: #### 73645, 14479 #### [facility] [address] [place] [address], USACreatinine [Mass/Vol]0.90 mg/dLNormal0.60-1.20The [facility] HospitalComment on above:Order Comment: No: Do not add to previous drawPerformed By: #### 60869, 39625 #### [facility] [address] [place] [address], USAGFR/1.73 sq M predicted among blacks MDRD (S/P/Bld) [Vol rate/Area]mL/min/{1.73_m2}Normal>60The [facility] Comment on above:Order Comment: No: Do not add to previous drawPerformed By: #### 57634, 06747 #### [facility] [address] [place] [address], USAGFR/1.73 sq M predicted among non-blacks MDRD (S/P/Bld) [Vol rate/Area]mL/min/{1.73_m2}Normal>60The [facility] Comment on above:Order Comment: No: Do not add to previous drawPerformed By: #### 63901, 31126 #### [facility] [address] [place] [address], USAGlucose [Mass/Vol]97 mg/nGVatyjm56-139Yox [facility] HospitalComment on above:Order Comment: No: Do not add to previous drawPerformed By: #### 29126, 07402 #### [facility] [address] [place] [address], USAPotassium [Moles/Vol]3.9 mmol/LNormal3.5-5.1The [facility] HospitalComment on above:Order Comment: No: Do not add to previous drawPerformed By: #### 52534, 20306 #### [facility] [address] [place] [address], USASodium [Moles/Vol]136 mmol/YWngoao196-441Ysq [facility] HospitalComment on above:Order Comment: No: Do not add to previous drawPerformed By: #### 88554, 74510 #### [facility] [address] [place] [address], USAUrea nitrogen [Mass/Vol]11 mg/dLNormal7-25The [facility] HospitalComment on above:Order Comment: No: Do not add to previous drawPerformed By: #### 09156, 40916 #### [facility] [address] [place] [address], USACBC COMPLETE BLOOD COUNTon 47-98-7548Qplnwvfusco distribution width (RBC) [Ratio]12.0 %Eqwhup24.5-15.0The [facility] HospitalComment on above:Order Comment: No: Do not add to previous draw Performed By: #### 93984 #### [facility] [address] [place] [address], USAHematocrit (Bld) [Volume fraction]42.7 %Cdurbk26.0-45.0The [facility] HospitalComment on above:Order Comment: No: Do not add to previous drawPerformed By: #### 94099 #### [facility] [address] [place] [address], USAHemoglobin (Bld) [Mass/Vol]13.9 g/uAWbddxv82.0-15.0The [facility] HospitalComment on above:Order Comment: No: Do not add to previous drawPerformed By: #### 68613 #### [facility] [address] [place] [address], [facility] CITYH (RBC) [Entitic mass]29.6 lvVwrojv35.0-33.0The [facility] HospitalComment on above:Order Comment: No: Do not add to previous drawPerformed By: #### 90378 #### [facility] [address] [place] [address], [facility] HOSPITALMCHC (RBC) [Mass/Vol]32.6 g/sFInfzvc76.0-35.0The [facility] HospitalComment on above:Order Comment: No: Do not add to previous drawPerformed By: #### 50955 #### [facility] [address] [place] [address], [facility] HOSPITALMCV (RBC) [Entitic vol]91.0 nOSfuldr67.0-98.0The [facility] HospitalComment on above:Order Comment: No: Do not add to previous drawPerformed By: #### 54823 #### [facility] [address] [place] [address], USANucleated RBC/100 WBC (Bld) [Ratio]0 %Normal0-0The [facility] HospitalComment on above:Order Comment: No: Do not add to previous drawPerformed By: #### 91142 #### [facility] [address] [place] [address], USAPLAT GSJ216 10*3/wOPkxcya609-197Qcm [facility] HospitalComment on above:Order Comment: No: Do not add to previous draw Performed By: #### 58217 #### [facility] [address] [place] [address], USARBC (Bld) [#/Vol]4.69 10*6/uLNormal3.80-5.00The [facility] HospitalComment on above:Order Comment: No: Do not add to previous drawPerformed By: #### 79763 #### [facility] [address] [place] [address], USAWBC (Bld) [#/Vol]8.19 10*3/uLNormal4.00-10.60The [facility] HospitalComment on above:Order Comment: No: Do not add to previous drawPerformed By: #### 20611 #### [facility] [address] [place] [address], USACardiovascular Lab Reporton 15-61-5829Tvpbgswodmrtvg Lab ReportUnAdena [facility] Patient Name: Elvia Fox [facility] Alexy MR #: [id number] Department of Physician: Mike Polanco M.D. Division of Service Date: 06/16/2019 Cardiology Birthdate: 1975 Adult Cardiovascular Room #: 3AB [id number] [place] [address] [address] [place], [place] [address] Cardiovascular Laboratory Report FINAL IMPRESSIONS: 1. Angiographically [...] the left radial artery was obtained. A 6-Kuwaiti glide sheath was inserted without difficulty. Bilateral [...] Anderson M.D. Date Trans: 06/17/2019 04:09 Alexy/adela DN_JN:[id number] cc: Pat Huston M.D. [address] [place] [address] Amos Vazquez M.D. [address] [address]FwsfiyUscPremier HealthHEMOGLOBIN A1Con 39-54-8179ErR9j (Bld) [Mass fraction]4.8 %Normal4.0-6.0The [facility] HospitalComment on above:Order Comment: Yes: Add to Previous draw if ablePerformed By: #### 68401, 13167 #### [facility] [address] [place] [address], VHUNkE3p (Bld) [Mass fraction]91 mg/fHUtwjcb10-824Lml [facility] HospitalComment on above:Order Comment: Yes: Add to Previous draw if ablePerformed By: #### 39537, 40621 #### [facility] [address] [place] [address], USALIPID PROFILEon 30-34-1397Klsuoawkbut [Mass/Vol]209 mg/dL Uzbw543-946Fgs [facility] HospitalComment on above:Order Comment: Yes: Add to Previous draw if ableResult Comment: CHOLESTEROL REFERENCE RANGE: 20 YEARS AND OLDER CARDIOVASCULAR RISK Less than 200 mg/dl Low Risk 200 to 239 mg/dl Borderline Risk 240 mg/dl and greater High RiskPerformed By: #### 47911, 36471, 96527, 85145 #### [facility] [address] [place] [address], USACholesterol in HDL [Mass/Vol]35 mg/kSRciktf16-04Azs [facility] HospitalComment on above:Order Comment: Yes: Add to Previous draw if ableResult Comment: Slight variation in normal range could be due to gender and/or age. HDL CHOLESTEROL REFERENCE RANGE: 20 years and older Cardiovascular Risk > or =60 mg/dL Desirable 40 TO 59 mg/dL Low Risk <40 mg/dL High RiskPerformed By: #### 54135, 15318, 58258, 58884 #### [facility] [address] [place] [address], USACholesterol in LDL [Mass/Vol]139 mg/dLHigh0-130The [facility] HospitalComment on above:Order Comment: Yes: Add to Previous draw if ableResult Comment: LDL IS A CALCULATION LDL IS ONLY VALID IF THE TRIG IS LESS THAN 400.Performed By: #### 18861, 24154, 95165, 43517 #### [facility] [address] [place] [address], USACholesterol.total/Cholesterol in HDL [Mass ratio]6.0 {ratio}High0.0-4.5The [facility] HospitalComment on above:Order Comment: Yes: Add to Previous draw if ablePerformed By: #### 79596, 84643, 47267, 23467 #### [facility] [address] [place] [address], USANON-HDL ETBOOGAEOSG244 mg/dLNormalThe [facility] HospitalComment on above:Order Comment: Yes: Add to Previous draw if able Performed By: #### 63548, 90492, 81925, 16823 #### [facility] [address] [place] [address], USATriglyceride [Mass/Vol]174 mg/mFOlwz63-940Lwp [facility] HospitalComment on above:Order Comment: Yes: Add to Previous draw if ableResult Comment: TRIGLYCERIDE REFERENCE RANGE: 20 YEARS AND OLDER CARDIOVASCULAR RISK LESS THAN 150 mg/dl LOW RISK 150 TO 199 mg/dl BORDERLINE RISK 200 mg/dl AND GREATER HIGH RISKPerformed By: #### 40061, 83713, 86862, 34312 #### [facility] [address] [facility] [place] [place] [address], AL[facility]IST[facility] REGIONAL HOSPITALVLDL CHOL35 mg/dLNormal0-40The [facility] HospitalComment on above:Order Comment: Yes: Add to Previous draw if able Performed By: #### 37713, 22866, 61154, 97155 #### [facility] [address] [facility] [place] [address], USAMAGNESIUM BLOODon 52-23-3403Wlymocjem [Mass/Vol]2.2 mg/dL Normal1.9-2.7The [facility] HospitalComment on above:Order Comment: No: Do not add to previous drawPerformed By: #### 21828, 29799, 28304, 24333 #### [facility] [address] [facility] [place] [place] [address], USAPHOSPHORUS BLOODon 76-10-8968Zoaklsjen [Mass/Vol]4.3 mg/dL Normal2.5-5.0The [facility] HospitalComment on above:Order Comment: No: Do not add to previous drawPerformed By: #### 40689, 03121 #### [facility] [address] [facility] [place] [address], USAAPTTon 11-73-3962sBES Coag (Bld) [Time]27.3 sNormal 25.0-35.0The [facility] HospitalComment on above:Result Comment: ALL RESULTS [...] BE USED FOR THIS PURPOSE.Performed By: #### 56121, 73289 #### [facility] [address] [place] [address], USABASIC METABOLIC PANELon 54-56-1560Ttawefj [Mass/Vol]9.3 mg/dLNormal8.6-10.3The [facility] HospitalComment on above:Order Comment: No: Do not add to previous drawPerformed By: #### 07273, 01455, 35009, 48524, 64475 #### [facility] [address] [place] [address], USAChloride [Moles/Vol]105 mmol/VMcdfwy27-107Kzs [facility] HospitalComment on above:Order Comment: No: Do not add to previous drawPerformed By: #### 84615, 75324, 05667, 77676, 29108 #### [facility] [address] [place] [address], USACO2 [Moles/Vol]23 mmol/XBqdile19-80Qoo [facility] HospitalComment on above:Order Comment: No: Do not add to previous draw Performed By: #### 31573, 66037, 71984, 55472, 46161 #### [facility] [address] [place] [address], USACreatinine [Mass/Vol]0.85 mg/dLNormal0.60-1.20The [facility] HospitalComment on above:Order Comment: No: Do not add to previous drawPerformed By: #### 43374, 54271, 01574, 16232, 22432 #### [facility] [address] [place] [address], USAGFR/1.73 sq M predicted among blacks MDRD (S/P/Bld) [Vol rate/Area]mL/min/{1.73_m2}Normal>60The [facility] Comment on above:Order Comment: No: Do not add to previous drawPerformed By: #### 05148, 61656, 33379, 55249, 52905 #### [facility] [address] [place] [address], USAGFR/1.73 sq M predicted among non-blacks MDRD (S/P/Bld) [Vol rate/Area]mL/min/{1.73_m2}Normal>60The [facility] Comment on above:Order Comment: No: Do not add to previous drawPerformed By: #### 97289, 47544, 18408, 85550, 54573 #### [facility] [address] [place] [address], USAGlucose [Mass/Vol]91 mg/zKOupfkc87-562Oek [facility] HospitalComment on above:Order Comment: No: Do not add to previous drawPerformed By: #### 50861, 38999, 88046, 31484, 55981 #### [facility] [address] [place] [address], USAPotassium [Moles/Vol]3.9 mmol/LNormal3.5-5.1The [facility] HospitalComment on above:Order Comment: No: Do not add to previous drawPerformed By: #### 58489, 52168, 37081, 89177, 51720 #### [facility] [address] [place] [address], USASodium [Moles/Vol]136 mmol/VMnirwh949-268Xox [facility] HospitalComment on above:Order Comment: No: Do not add to previous drawPerformed By: #### 09473, 93981, 29941, 44288, 68839 #### [facility] [address] [place] [address], USAUrea nitrogen [Mass/Vol]10 mg/dLNormal7-25The [facility] HospitalComment on above:Order Comment: No: Do not add to previous drawPerformed By: #### 74961, 48063, 29755, 11568, 74499 #### [facility] [address] [place] [address], USAFREE T3on 30-35-3763Sdqg T3 [Mass/Vol]2.6 pg/mLNormal 2.5-3.9The [facility] HospitalComment on above:Performed By: #### 88839, 24397, 46348, 07990, 22155 #### [facility] [address] [place] [address], USAFREE T4on 45-93-2874Vdbv T4 [Mass/Vol]0.73 ng/dLNormal 0.71-1.85The [facility] HospitalComment on above:Performed By: #### 66670, 87552, 39293, 15545, 14402 #### [facility] [address] [place] [address], USAMAGNESIUM BLOODon 22-94-7905Weocoqkho [Mass/Vol]2.2 mg/dL Normal1.9-2.7The [facility] HospitalComment on above:Order Comment: No: Do not add to previous draw MissPerformed By: #### 77199, 96743, 56580, 62861, 13895 #### [facility] [address] [place] [address], USAPROTHROMBIN TIMEon 97-03-7238OKT Coag (PPP) [Relative time] 1.06 {INR}Normal0.91-1.16The [facility] HospitalComment on above:Result Comment: ACCCP RECOMMENDED [...] OPTIMAL THERAPEUTIC RANGE. CHEST 1995;108:231S-246S.Performed By: #### 71810, 84015 #### [facility] [address] [facility] [place] [address], USAPT Coag (PPP) [Time]13.8 iAdroiu86.3-14.8The [facility] HospitalComment on above:Result Comment: ALL RESULTS MUST BE INTERPRETED WITH RESPECT TO BLOOD DRAWING ARTIFACT OR DILUTION ERROR OF ANTICOAGULANT AT THE TIME OF SAMPLING.Performed By: #### 21931, 46825 #### [facility] [address] [facility] [place] [address], UACNDZ6zo 70-72-4448PNR 3RD GENERATION1.94 uIU/mLNormal 0.34-5.60The [facility] HospitalComment on above:Performed By: #### 21167, 29309, 69840, 71950, 08687 #### [facility] [address] [facility] [place] [address], [facility] Vital Signs Date TimeVital SignValuePerforming AzaagmprpOnvqmsiy76-98-5090 16:18-0400 Diastolic blood mm[Hg]Pta Huston MD Work Phone: [facility]07-31-2025 16:18-0400 Heart rate62 /Rubina Huston MD Work Phone: [facility]07-31-2025 16:18-0400 Systolic blood cltiqfgz231 mm[Hg]Pat Huston MD Work Phone: [facility]12-16-2024 11:00-0500 Body vdcivb454.1 cmAchemadottie Woodsvik MULTIMEDIA JOURNALIST Work Phone: [facility] CenterJkbyokwlla60-23-6341 11:00-0500Body mass index (BMI) [Ratio]35.65 kg/e0Cxocsc Salinas MULTIMEDIA JOURNALIST Work Phone: [facility] CenterObfvchklmm00-06-1959 11:00-0500Body ycbyym55.18 kgHarlan Salinas MULTIMEDIA JOURNALIST Work Phone: [facility] CenterXmbqvertvw69-97-2054 11:00-0500Diastolic blood mm[Hg]Harlan Salinas MULTIMEDIA JOURNALIST Work Phone: [facility] CenterPbzwghhjmi98-60-3715 11:00-0500Heart rate58 /min Harlan Niño MULTIMEDIA JOURNALIST Work Phone: [facility] CenterGdiiuwszap03-75-6898 11:00-3885AmQ3% (BldA) [Mass fraction]98 %Harlan Salinas MULTIMEDIA JOURNALIST Work Phone: [facility] CenterJljrqrchrb26-69-4474 11:00-0500Systolic blood mm[Hg]Harlan Salinas MULTIMEDIA JOURNALIST Work Phone: [facility] CenterBdmohfqcuu48-95-0638 11:16-0400Body .1 cmK[facility]10-30-2024 11:16-0400Body mass index (BMI) [Ratio]35.4 kg/n1PnkkteiozKettering Health – [facility] Center10-30-2024 11:16-0400Body dzmvte08.61 kgKettering Health [facility] Center10-30-2024 11:16-0400Diastolic blood nfxcvicq59 mm[Hg][facility]10-30-2024 11:16-0400 Heart rate65 /minKettering Health [facility] Medical Center10-30-2024 11:16-0400Systolic blood cvbtrpez249 mm[Hg][facility]11-14-2023 10:29-0500 Body ehkuwd470.1 cmMD Pat Huston Work Phone: [facility]11-14-2023 10:29-0500 Body .52 kgMD Pat Robel Work Phone: [facility] Encounters Encounter DateEncounter TypeCare ProviderFacilityStart: 05-24-2025 End: 15-95-8373qsyicnbktnChqplc E Braun MD Work Phone: [facility] Work Phone: Start: 05-24-2025 End: 60-09-3094Rjtlyqu encounter procedureHarlan Brandt [facility] [place] Work Phone: Start: 05-03-2025 End: 81-86-6760hmakohctueXSSTAultman Orrville Hospitaltart: 10-09-2024 End: 72-42-9885Xtpuaj flowsheetHarlan Niño MULTIMEDIA JOURNALIST Work Phone: [facility]Start: 10-09-2024 End: 19-73-2005Clezzb flowsheetHarlan Niño MULTIMEDIA JOURNALIST Work Phone: noMS [facility]TEStart: 10-09-2024 End: 52-93-5976Snpbgp outpatient visit 25 minutesAngejayne Niño MULTIMEDIA JOURNALIST Work Phone: noMS [facility] R[facility]TEComment on above:Abnormal MRI (Primary Dx); Anisocoria; Tremor; Tension-type headache, not intractable, unspecified chronicity pattern; Vertigo; Primary insomniaStart: 10-09-2024 End: 88-82-0550tpjugejispSHGYZT GILLMORNot AvailableStart: 23-83-5007Etozbsw encounter [facility] Centertart: 08-23-2024 End: 78-14-5095bxbqezpgxmCyupdfwfoKindred Healthcare Work Phone: Start: 08-23-2024 End: 75-39-6755Zkegrog encounter [facility] Phys[facility] Work Phone: Start: 03-16-2024 End: 36-32-9737Vldxzvrfm Result EncounterAngela Peggymor MULTIM[employer]IA JOURNALIST Other Phone: NOBO External Department UnsolicitedStart: 03-16-2024 End: 35-45-9181Vvnvihhtk Result EncounterAngela Peggymor M[employer]IM[employer]IA JOURNALIST Other Phone: noms External Department UnsolicitedStart: 02-28-2024 End: 03-21-1426uyyzgmhacvGJXOGW PEGGYMORNot AvailableStart: 47-06-5634Ggkhfizwz encounterMarcia RobelCherrington Hospitaltart: 09-07-2023 End: 29-45-7333thbtoxzyzmIsmuwm E BraunFacility:[facility] Healthtart: 09-07-2023 End: 73-89-9259tkxuglwixaWM Marcia E Braun Work Phone: [facility] Work Phone: Start: 09-07-2023 End: 77-46-9037Yzlmxsy encounter procedureMD Pat Huston Work Phone: [facility] [place] Work Phone: Start: 08-06-2023 End: 86-10-5778yflqfftvbhXsyrge Braun Other [employer] Other Start: 40-17-9490Efomahioa encounterMarcia RobelUniversity Hospitals [facility] ClinicStart: 07-27-2023 End: 45-99-1828wzumxgmwizNehaav Braun Other [employer] Other Start: 25-03-9727Mxtkaeijq encounterMarcia RobelUniversity Hospitals Lake [facility] ClinicStart: 07-13-2023 End: 15-14-9653txantffnrcMjdxlc Braun Other [employer] Other Start: 26-94-6656Hfknqfvdk encounterMarcia RobelUniversity Hospitals Lake [facility] Center ClinicStart: 07-06-2023 End: 81-61-6741optvpflcgeIeqceg Robel Other [employer] Other Start: 53-76-2315Hnumqurzl encounterPat Cee [facility] ClinicStart: 04-87-2835stsvjiypuhKxwoozofaxt Abdelaziz Facility:[facility] Healthtart: 41-53-7955ayjfxgdojhSL EHAB ELTAHAWYFacility:S1Obzbf: 02-16-2023 End: 38-85-0549vjqmlwbrysSY JL DANNERFacility:M2Iqvii: 02-11-2023 End: 50-75-6797urzhjpszzyZA EHAB ELTAHAWYFacility:U0Jpdql: 35-49-6789Pfvtgbqwh for general adult medical examination without abnormal findingsDR PAT HUSTON [facility]: 11-19-2022 End: 02-41-8451vmlymzvccbAhuqdg Braun Other [employer] Other Start: 43-64-1655Jgwuqtscx encounterPat Cee [facility]Start: 11-18-2022 End: 22-73-5104pauvwjushnIY PAT HUSTONFacility:O9Nfdas: 11-18-2022 End: 13-72-4050Yjniovrwv for general adult medical examination without abnormal findingsDR PAT HUSTONFacility:K5Dhfvi: 11-04-2022 End: 10-61-2727xyvgkomhfjXW EHAB ELTAHAWYFacility:N9Odewb: 07-10-2022 End: 63-99-1447gkbnbwtivpQH PAT HUSTONFacility:N7Agaqt: 41-74-3872Yksit health examinationPat Huston Other [employer] Other Start: 60-75-5968Mzlkfvwiy for general adult medical examination without abnormal findingsPat Huston Other [employer] Other Start: 06-24-2022 End: 50-46-8586myokmdaqvdNM PAT HUSTONFacility:J0Yhaqe: 06-09-2022 End: 73-23-1727refzyfpiluWU DOCTOR MISCFacility:N6Ujytm: 06-16-2019 End: 93-00-1821Khsjqph encounter procedureOMAR AL-HOURANIFacility:UTMCStart: 54-81-7978Qmtnicrrgurnz examination normalPat Hsuton Other [facility] Other Procedures DateProcedureProcedure DetailPerforming ClinicianStart: 77-40-5757EYY HEAD/BRAIN WO/W Scott Niño NP Other Phone: Start: 52-30-6118MBC of bilateral breasts with contrastMD Pat Robel Work Phone: Start: 33-56-6623Ykawmjwxm visitPat Robel Other Start: 29-76-0214Scdubnsgkjmub care educationPat Robel Other Screening for malignant neoplasm of breastPat Robel Other Viral screeningPat Robel Other Plan of Treatment DateCare ActivityDetailAuthorStart: 04-02-2025 End: 34-99-3034Arneljm encounter gcbumhliq35/09/2025 4:00 PM EDT Office Visit [facility] [address] [place] [phone] Harlan Niño NP [address] [place] [address] [facility] ROUTEStart: 10-09-2024 End: 83-49-0457Unqpdjz encounter eltcsxsrf33/16/2024 10:40 AM EST Office Visit [facility] [address] [place] [phone] Harlan Niño NP [address] [place] [address] ArrivedNO [facility] ROUTEComment on above: ArrivedComprehensive metabolic 2000 panel - Serum or PlasmaKettering Health – Soin Medical CenterXR Pelvis and Hip - bilateral ViewsShorePoint Health Port [place] Payers DatePayer CategoryPayerPolicy [id number] [facility] [id number]06606.99216-53-3541MgqdtgiVJL5176205FQ [id number] 2..6.215175.5[id number] 2..1.904792.3.579.[id number] 2..1.349247.3.579.[id number] 2..1.137783.3.579.2.36951-99-0633Czexqay8152512 2..1.671851.3.579.2.04867-41-3061Ugjumrd7554275 2..1.734210.3.57[id number] 2.16.840.1.237084.3.579.[id number] 2.16.840.1.043600.3.579.2.44739-08-9867Bsvgjhv6090289 2.16.840.1.273660.3.579.2.33536-52-1619Nybvxjj4429044 2.16.840.1.285475.3.579.[id number] 2.16.840.1.904931.3.579.2.[id number] 2.16.840.1.404629.3.579.2.453405-12-9521Ijky-[id number] Other1 (STD)[id number] 24354mag-975q-2e81-h75e-[id number] 2.16.840.1.176665.3.579.2.579Rqszvoa42042584 2.0.1.933512.3.579.2.531 Social History DateTypeDetailFacilityUnknown if ever smokedMaupin [facility] Other Start: 02-28-2024 End: 43-82-0890Def Assigned At [facility] Other Start: 79-27-6600Yhm [facility]tart: 04-20-2022 End: 50-56-1449Nbjsjhx smoking status NHISNever smoked tobacco (finding) [facility]: 36-22-2211Rebhnip use and exposure Smokeless tobacco non-userNOMS HealthcareStart: 02-28-2024 End: 24-01-2270Haxispwjf beverage intakeLifetime non-drinker (finding)[facility] HealthcareStart: 02-28-2024 End: 90-33-5213Ojdukqz of Social functionCapital Region Medical CenterStart: 76-16-7890Tqtjoc identityIdentifies as female gender (finding)[facility] HealthcareSexFemale (finding) [facility]art: 38-81-8713XhuUxgpprTBJUFormerly [facility] Clinical Notes 11-04-2022 to 05-03-2025 Note Date & QdolXyfxOmlkinpk83-23-0757 [facility] Chief Complaint: [...] dizziness. She did see one of our milking worker Dr. Guevara and they discussed the potential [...] Paroxysmal tachycardia (CMS/HCC), Prinzmetal angina, and WPW (Dvttc-Yihkqbjrw-Uiwqn syndrome). Surgical History She has a past [...] to pulmonary hypertension and/o (more content not included)...[facility] 07-27-2023 Evaluation note* Encounter Date Diagnosis Assessment Notes Treatment Notes Treatment Clinical Notes Jul, Abnormal mammogram (ICD-10 - R92 .8) [facility] [email or web address] Other 09-19-2023 Evaluation note* Encounter Date Diagnosis Assessment Notes Treatment Notes Treatment Clinical Notes Jun, Abnormal mammogram of right rae st (ICD-10 - R92.8) [facility] Other 09-12-2023 Evaluation note* Encounter Date Diagnosis Assessment Notes Treatment Notes Treatment Clinical Notes Jun, Screening mammogram for breast c ancer (ICD-10 - Z12.31) [facility] [email or web address] Other 01-11-2023 NoteCARDIAC STRESS TEST Requesting Physician: [...] further information. 7. Clinical correlation is recommended.[facility]umbullEvaluation noteNo InformationNosaint john's breech [facility] Other Evaluation noteNo assessment information available [facility] Work Phone: Evaluation note* Diagnosis Onset Date Resolution Status Bilateral hip pain acute [facility] Work Phone: Evaluation note* Diagnosis Abnormal [...] CERVICAL DISORDERSurgical Historyarthroscopy twice-2006,2008; rhinoplasty Surgical Historylap-hystoscopy, d&s1137Kehmmnmv HistoryhysterectomySurgical Historybone marrow vjszffci7288Wccysnbxpmhtxdf Historysee above [employer] Other History general Narrative - Reported* Type [...] Title : Outpatient,Surgical HistoryProblem Title : NON PAPER COLORER SURGERIES: Right knee arthroscopy, Problem Status : [...] Ligation, Problem Status : Active,Hospitalization Historysee above [employer] Other Reason for referral (narrative)No reason for referral information availableMarymount Hospital Work Phone: Summary Purpose Family History No Family History Records Found Relationship Condition Age at Onset Recorded Date/T porfirio father Hypertension Unknown Heart diseaseUnknownHistory of strokeUnknownmotherHypertensionUnknown Advance Directives No Advanced Directives Records Found Advance Directive Response Recorded Date/ Time Advance Directives No August 9:55am Advance Directive Response Recorded Date/ Time Advance Directives No August 10:55am Hospital Course Note MR#: [id number] [facility] Pt. Name: Elvia Fox Admitted: 06/16/2019 Discharged: 06/17/2019 Date of : 1975 Physician: Alessandro Lin MD DISCHARGE SUMMARY PRIMARY DIAGNOSES: 1. Typical chest pain with abnormal stress test. Post heart catheterization, which demonstrated no significant coronary artery stenosis. 2. Major depressive disorder. 3. Lower end of normal T4 with normal TSH. 4. Yzyul-Hlsrtgwvt-Dbydy. HOSPITAL COURSE: The patient is a 43-year-old [...] and content) DATE CREATED AUTHOR 09/18/2019 [facility] DATE CREATED AUTHOR AUTHOR'S ORGANIZ ATION 03/07/2023 [facility] DATE CREATED AUTHOR AUTHOR'S ORGANIZ ATION 10/14/2023 [facility] DATE CREATED AUTHOR AUTHOR'S ORGANIZ ATION 10/11/2024 [facility] EPIC DATE CREATED AUTHOR AUTHOR'S ORGANIZ ATION 08/28/2025 [facility] REASON FOR VISIT (unrecogniz ed section and content) labsordermammabnormal mammme ssagebreast MRI Care Teams (unrecognized sec tion and content) Team Status: Active Member Role Status Dates Pat Huston MD Primary Care Provider Active Team Status: Inactive Member Role Status Dates Pat Huston MD Primary Care Provider, Attending Agnes macdonald Active Team Status: Inactive Member Role Status Dates Pat Hutson MD Primary Care Provide r, Attending Provider Active Start: August 23, 2024 End: August 23, 2024Team MemberRelationshipSpecialtyStart DateEnd Date Pat Huston MD [address] [place] [phone] PCP - General02/27/24Team MemberRelationshipSpecialtyStart DateEnd Date Pat Huston MD [address] [place] [phone] PCP - General02/27/24 Jl Aguilar DO [address] [id number] Referring MvtulgoirTkjzvwspo45/16/24 Team Status: Inactive Member Role Status Dates Pat Huston MD Primary Care Provider Active Start: May 24, 2025 End: May 24Alicja Coleman ProviderActiveStart: May 24, 2025 End: May 24, 2025Team MemberRelationshipSpecialtyStart DateEnd Date Pat Huston MD PCP - General02/27/24 Harlan Niño NP PCP - [place] [employer]// Jl Aguilar DO [address] [place] [address] Referring JpuopowvwFoaenkhmj07/16/24 Goals (unrecognized section and content) Goals may [...] BE BASED ON THE PRIMARY CLINICAL RECORDS. [email or web address] [facility]. provides no warranty or guarantee of the accuracy or completeness of information in this document.
--- OUTSIDE RECORDS SUMMARY | 2025-10-03 07:02 | XMS_ITS | Encounter Summary ---
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 Name Role Phone Pat Dominique MD Primary Care Provider [phone] Reason for Referral * Consultation (Routine) - Pending ReviewSpecialtyDiagnoses / ProceduresReferred By ContactReferred To ContactNephrology Diagnoses Elevated serum creatinine Hypokalemia Procedures HI OFFICE/OUTPATIENT NEW [facility] 60 MINUTES Vidhi Anderson MD [address] [facility] [address] [facility] [place] [address] Phone: tel: fax: Referral IDStatusReasonStart DateExpiration DateVisits RequestedVisits [id number] Review Specialty Services Required Encounter Details DateTypeDepartmentCare Team (Latest Contact Info)Ijrwcikzhmv41/26/2025Telephone [facility] [address] [place] [address] Rebeca, PRICILLA Whitten Social History Tobacco UseTypesPacks/DayYears UsedDateSmoking Tobacco: NeverSmokeless Tobacco: NeverAlcohol UseStandard Drinks/WeekCommentsNot Currently0 (1 standard drink = 0.6 oz pure alcohol)UT Safety & EnvironmentAnswerDate RecordedFear of Current or Ex-PartnerNot on file12/16/2023Emotionally AbusedNot on file12/16/2023hysically AbusedNot on file12/16/2023Sexually AbusedNot on file12/16/2023hysically or Sexually AbusedNot on file12/16/2023CommentsNoSex and Gender Information ValueDate RecordedSex Assigned at BirthNot on fileLegal YplOiviah32/29/2022 10:21 PM EDTGender IdentityNot on fileSexual OrientationNot [...] as discussed I would recommend seeing a dental assistant medical assistant. Thank you. Patient made aware. Orders sent. [...] DateEnd Date Pat Dominique MD [address] [facility] [address]A PCP - Xxhntdn68/2/22documented as of this encounter
== END 2025-10-03 06:59 | disposition home or self-care (01) ==
LOC: US 06:58
PROVIDERS: PCP Family Medicine; Visit Provider Family Medicine
DX: Z12.31 Encounter for screening mammogram for malignant neoplasm of breast (principal); N18.31 Chronic kidney disease, stage 3a; Z82.71 Family history of polycystic kidney
CPT/HCPCS: 76775; 77063; 77067